=== PATIENT | female | born 1980 | race Caucasian/White ===

== ENCOUNTER 2023-01-02 18:46 | Emergency (ER) | payer OTHER, SELFPAY ==
--- NOTE | ~2023-01-02 | US_ITS ---
EXAMINATION: US ABDOMEN COMPLETE CLINICAL INFORMATION: Right upper quadrant pain. COMPARISON: None available. TECHNIQUE: Real-time imaging of the abdominal viscera. Technical limitation secondary to overlying bowel gas. FINDINGS: PANCREAS: Pancreas not well-visualized secondary to overlying bowel gas. ABDOMINAL AORTA: Aorta not well visualized. INFERIOR VENA CAVA: Visualized portions are normal. LIVER: Normal. The liver is normal in size. The liver contour is normal. Parenchymal echogenicity is normal. No focal hepatic lesion. There is no intrahepatic biliary duct dilatation seen. GALLBLADDER: Normal. The gallbladder is physiologically distended without evidence of stones, sludge, polyps, wall thickening or pericholecystic fluid. COMMON BILE DUCT: Normal in caliber measuring 0.2 cm in diameter. RIGHT KIDNEY: Normal. No hydronephrosis. No renal calculi or focal parenchymal lesions. The kidney measures 9.6 cm in maximum dimension. LEFT KIDNEY: Normal. No hydronephrosis. No renal calculi or focal parenchymal lesions. The kidney measures 9.8 cm in maximum dimension. SPLEEN: Normal. The spleen measures 12.4 cm in maximum dimension. FREE FLUID: None. US/US abdomen complete IMPRESSION: Unremarkable abdominal ultrasound.
[2023-01-02 18:55] VITALS: BP 111/75; PULSE 108; RESP 18; TEMP 36.8; O2SAT 97; BMI 30.8
--- NOTE | 2023-01-02 18:57 | ED_ITS ---
HPI - General Adult General Chief complaint: General Medical Stated complaint: Abdominal pain, no appetite Time Seen by Provider: 01/02/23 19:30 Source: patient Mode of arrival: ambulatory Limitations: no limitations History of Present Illness HPI narrative: 42 yold female with pmh of biliary dyskinesia, eating disroder, anxiety, depression, agrophobia, presents to the ED for chronic abdominal pain ( Right upper quadrant) exacerbation. Patient having abdominal pain ( Right upper quadrant pain) for one year and in October at [facility] on a HiDA scan patient was found to have biliary dyskinesia. patient followed up with Surgeon At [facility] who scheduled patient for open cholecystectomy on January 09, but patient presents to the ED stating pain ( Right upper quadrant pain) is unbearable. Related Data Home Medications Medication Instructions Recorded Confirmed clonazepam 1 mg tablet 1 mg PO DAILY 01/02/23 01/02/23 clonazepam 1 mg tablet 2 mg PO BEDTIME 01/02/23 01/02/23 diazepam 10 mg tablet 10 mg PO BEDTIME 01/02/23 01/02/23 famotidine 20 mg tablet 20 mg PO BID PRN heartburn 01/02/23 01/02/23 lamotrigine 200 mg tablet 200 mg PO DAILY 01/02/23 01/02/23 lamotrigine 25 mg tablet 25 mg PO BEDTIME 01/02/23 01/02/23 lisdexamfetamine 40 mg capsule 40 mg PO QAM 01/02/23 01/02/23 (Vyvanse) ondansetron 4 mg disintegrating 4 mg PO Q8H PRN Nausea 01/02/23 01/02/23 tablet pantoprazole 40 mg tablet,delayed 40 mg PO DAILY 01/02/23 01/02/23 release sucralfate 1 gram tablet 1 g PO QIDACHS 01/02/23 01/02/23 valacyclovir 500 mg tablet 500 mg PO DAILY 01/02/23 01/02/23 vortioxetine 20 mg tablet 20 mg PO QAM 01/02/23 01/02/23 (Trintellix) zolpidem 10 mg tablet 10 mg PO BEDTIME 01/02/23 01/02/23 Previous Rx's Medication Instructions Recorded oxycodone-acetaminophen 5 mg-325 1 tab PO TID PRN pain 3 days #9 10/04/23 mg tablet (Percocet) tabs Allergies Allergy/AdvReac Type Severity Reaction Status Date / Time propofol Allergy Intermediate Itching Verified 01/02/23 18:55 Review of Systems 2 Review of Systems: epgisastric/RUQ abdominal pain Yes all other systems are reviewed and are negative [facility] Social History Social History Smoked in Last 30 Days: No Use of substances other than those prescribed or required for medical reasons: No Advance Directives: No Advance Directives Information Provided: No Patient : No Physical Exam ED Vital Signs: Vital Signs - 24 hr 01/02/23 18:55 Temperature 98.3 F Pulse Rate 108 H Respiratory Rate 18 Blood Pressure 111/75 Pulse Oximetry 97 Oxygen Delivery Method Room Air BMI result Body Mass Index 30.8 Const General: cooperative, healthy appearing, comfortable and no acute distress Orientation/consciousness: oriented to person, oriented to place, oriented to time and patient oriented x3 HENMT Head: Yes normal to inspection, Yes No palpable skull fracture present, Yes normocephalic, Yes atraumatic and No abrasion Eyes General: appearance normal, both eyes and all related structures Neck Neck: Yes normal visual inspection, Yes full ROM, Yes no lymphadenopathy, Yes no meningeal signs, Yes trachea midline, Yes supple, No anterior neck swelling and No tender Chest Chest palpation & inspection: normal inspection of the chest and normal palpation of entire chest wall Resp Effort & Inspection: normal respiratory effort and able to speak in complete sentences Auscultation: clear to auscultation bilaterally Cardio Jugular venous distension: no JVD Heart sounds: S1 normal heart sound present and S2 normal heart sound present GI Inspection: Yes normal to inspection and No abdominal wall ecchymosis Palpation (GI): Soft to palpation, not firm, Tenderness to palpation present (GI) in the RUQ, no guarding and not rigid General: No CVA tenderness and Yes no CVA tenderness Back/Spine/Pelvis Back: no CVA tenderness, No CVA tenderness and No back tenderness Skin General skin exam: no rashes or lesions noted, elasticity normal and turgor normal Neuro General: oriented to person, oriented to place, oriented to time, patient oriented x3, gait normal, tone normal, moves all extremities, Normal light touch and pain sensation, no meningeal signs, no focal motor deficits, CN's II-XI intact bilaterally and normal sensation to monofilament Extrem General: Yes normal to inspection and Yes full ROM Psych Appearance: grossly normal, well kempt and not disheveled Course Course Course Narrative: This is an RME: Additional HPI, ROS, PE not included below will be deferred to primary provider. 42-year-old female presents with no eating x4 days, reports abdominal pain, inability to tolerate p.o., reports associated nausea. Patient has been seen at multiple facilities for the same presentation. He reports last time she was at [facility] she went into cardiac arrest due to this. Plan will speak discharge Medications Administered Discontinued Medications Generic Name Dose Route Start Last Admin Trade Name Corky PRN Reason Stop Dose Admin Diphenhydramine HCl 25 mg 01/02/23 20:07 01/02/23 20:35 Diphenhydramine Hcl 50 Mg/Ml Vial IVPUSH 01/02/23 20:08 25 mg ONCE ONE Administration Sodium Chloride 1,000 mls @ 999 mls/hr 01/02/23 22:36 01/03/23 01:20 Ns IV 01/02/23 23:36 Infused .Q1H1M STA Infusion Sodium Chloride 1,000 mls @ 999 mls/hr 01/02/23 22:36 01/03/23 01:20 Ns IV 01/02/23 23:36 Infused .Q1H1M STA Infusion Morphine Sulfate 4 mg 01/02/23 20:07 01/02/23 20:36 Morphine Sulfate 4 Mg/Ml Cartridge IVPUSH 01/02/23 20:08 4 mg ONCE ONE Administration Protocol Morphine Sulfate 4 mg 01/02/23 22:36 01/02/23 22:53 Morphine Sulfate 4 Mg/Ml Cartridge IVPUSH 01/02/23 22:37 4 mg ONCE ONE Administration Protocol Medical Decision Making Medical Decision Making MDM Narrative: 42-year-old female presents with past medical history anxiety, angrophobia, eating disorder, and recently diagnosed with gallbladder dyskinesia presents to ED for epigastric right upper quadrant pain. Patient's schedule for open cholecystectomy January 09 at [facility] rate. Patient states having abdominal pain since yesterday so she came to the ED. Labs pain med ordered. 1:16am; I reviewed patient's notes and images from [facility] and [facility]. Patient had HIDA scan at [facility] in October which showed biliary dyskinesia. Patient received 8 of morphine. Labs are normal. Repeat ultrasound normal. No need for any CT scan. I reviewed multiple CT scans from [facility] and ultrasound. Also patient has similar presentation today as did at [facility] and [facility] as per notes. Case was discussed with Dr. Dalal of surgery who states presently does not need any surgical intervention and patient could be discharged. Spoke with Hospitalists who states patient does not need to be admitted and can be discharge. Patient was informed the necessity for urine to make sure there is no UTI. patient states she will follow up her PCP to have Urine test to check for UTI. Differential Diagnosis Differential Diagnoses: The differential diagnosis associated with the presentation includes (Cholecystitis, Biliary colic, biliary dyskinesia, pancreatitis) Admission/Observation Consideration of admission/observation: Escalation of care including admission/observation considered Consult Healthcare Provider Management of the patient was discussed with: Access Spec (Dr. Dalal Surgery and Dr. Ness Hospitalist) Lab Data MDM Lab Attestation statement: I reviewed the patient's lab results. 01/02/23 20:12 01/02/23 20:44 Labs: Lab Results 01/02/23 01/02/23 Range/Units 20:12 20:44 WBC 5.8 (4.8-10.8) X10*3/uL RBC 4.77 (4.20-5.50) X10*6/uL Hgb 14.0 (12.0-16.0) g/dl Hct 41.3 (37.0-47.0) % MCV 86.6 (80.0-98.0) fL MCH 29.4 (27.0-33.0) pg MCHC 33.9 (31.0-35.0) g/dl RDW 12.1 (11.0-16.0) % Plt Count 348 (160-400) X10*3/uL MPV 10.1 (9.4-12.3) fL Immature Gran % (Auto) 0.3 (0.0-0.4) % Neut % (Auto) 44.9 L (45-73) % Lymph % (Auto) 45.9 H (20-40) % Lea % (Auto) 7.4 (2-11) % Eos % (Auto) 1.2 (0-4) % Baso % (Auto) 0.3 (0-2) % Lymph # (Auto) 2.7 (1.2-4.9) X10*3/uL Lea # (Auto) 0.4 (0.1-1.2) X10*3/uL Eos # (Auto) 0.1 (0.0-0.4) X10*3/uL Baso # (Auto) 0.0 (0.0-0.2) X10*3/uL Abs Immat Gran (auto) 0.02 (0.00-0.03) X10*3/uL Absolute Neuts (auto) 2.6 (2.0-8.3) x10*3/uL Absolute Nucleated RBC 0.000 (0.0-0.012) X10*3/uL Nucleated RBC % (auto) 0.0 (0.0-0.2) /100WBC Sodium 136 (135-145) mmol/L Potassium 4.2 (3.3-5.1) mmol/L Chloride 104 (96-108) mmol/L Carbon Dioxide 26 (22-29) mmol/L Anion Gap 10 L (12-20) BUN 12 (9-16) mg/dL Creatinine 0.71 (0.5-1.4) mg/dL Estim Creat Clear Calc 103.7 Estimated GFR > 60 Random Glucose 97 (60-115) mg/dL Calcium 9.2 (8.4-10.2) mg/dL Magnesium 2.3 (1.6-2.6) mg/dL Total Bilirubin 0.3 (0.0-1.0) mg/dL AST 14 (5-31) U/L ALT 9 (0-31) U/L Alkaline Phosphatase 96 (39-117) U/L Troponin I High Sens < 2.7 (<3.5-17.0) ng/L Total Protein 7.3 (6.5-8.0) g/dL Albumin 4.0 (3.5-5.0) g/dL Lipase 16 (8-78) U/L Beta HCG, Quant < 2 mIU/mL Ethyl Alcohol < 10 mg/dL Independent Interpretation I performed an independent interpretation of an: Ultrasound Radiology Impression Discussion of test interpretation with radiology: I have reviewed the radiologist's reading. Independent Historian Clinical information obtained from an independent historian. History obtained from or confirmed by: Spouse External Record Review External record reviewed: [facility]patient record ([facility]), Outpatient record ([facility] and [facility]), Prior outpatient radiology ([facility] and [facility]) and Other Prescription Management I considered prescription management with: Pain Medication Discharge Plan Discharge Clinical Impression: Biliary dyskinesia Patient Disposition: Home, Self-Care Instructions: Biliary Dyskinesia (DC) Additional Instructions: Recommend follow-up with your glass calibrator and surgeon at [facility]. Return to the ED immediately for worsening abdominal pain, intractable nausea nausea vomiting, weakness, dizziness, fever, chills, or any other other concerning symptoms. Prescriptions: New oxycodone-acetaminophen [Percocet] 5-325 mg tablet 1 tab PO TID PRN (Reason: pain) 3 Days Qty: 9 0RF Rx Instructions: Partial Fill upon patient request. No Action sucralfate 1 gram tablet 1 g PO QIDACHS clonazepam 1 mg tablet 1 mg PO DAILY valacyclovir 500 mg tablet 500 mg PO DAILY famotidine 20 mg tablet 20 mg PO BID PRN (Reason: heartburn) pantoprazole 40 mg tablet,delayed release (DR/EC) 40 mg PO DAILY diazepam 10 mg tablet 10 mg PO BEDTIME zolpidem 10 mg tablet 10 mg PO BEDTIME ondansetron 4 mg tablet,disintegrating 4 mg PO Q8H PRN (Reason: Nausea) lisdexamfetamine [Vyvanse] 40 mg capsule 40 mg PO QAM Trintellix 20 mg tablet 20 mg PO QAM lamotrigine 200 mg tablet 200 mg PO DAILY clonazepam 1 mg tablet 2 mg PO BEDTIME lamotrigine 25 mg tablet 25 mg PO BEDTIME Interventions: ED Discharge Assessment Last Done: 01/03/23 01:49 Discharge Date/Time: 01/03/23 01:49 Print Language: Ukrainian
--- NOTE | 2023-01-02 19:48 | ECG_ITS ---
Test Reason : WEAKNESS Blood Pressure : / mmHG Vent. Rate : 086 BPM Atrial Rate : 086 BPM P-R Int : 144 ms QRS Dur : 086 ms QT Int : 354 ms P-R-T Axes : 035 044 025 degrees QTc Int : 423 ms Normal sinus rhythm Normal ECG No previous ECGs available Referred By: Kali Salcido Electronically Signed By:ROCIO ESCOTO
[2023-01-02 20:24] LABS: MANUAL DIFF FLAG NO
[2023-01-02 20:29] LABS: Basophils Percent Auto 0.3 % (0-2); Eosinophils Absolute Auto 0.1 X10*3/uL (0.0-0.4); Eosinophils Percent Auto 1.2 % (0-4); Hematocrit 41.3 % (37.0-47.0); Imm Gran Abs Auto 0.02 X10*3/uL (0.00-0.03); Imm Gran Pct Auto 0.3 % (0.0-0.4); Lymphocytes Absolute Auto 2.7 X10*3/uL (1.2-4.9); Lymphocytes Percent Auto 45.9 % (20-40); Mean Corpuscular HGB Conc 33.9 g/dl (31.0-35.0); Mean Corpuscular Hemoglobin 29.4 pg (27.0-33.0); Mean Corpuscular Volume 86.6 fL (80.0-98.0); Mean Platelet Volume 10.1 fL (9.4-12.3); Monocytes Absolute Auto 0.4 X10*3/uL (0.1-1.2); Monocytes Percent Auto 7.4 % (2-11); Neutrophils Absolute Auto 2.6 x10*3/uL (2.0-8.3); Neutrophils Percent Auto 44.9 % (45-73); Platelet Count 348 X10*3/uL (160-400); Red Blood Count 4.77 X10*6/uL (4.20-5.50); Red Cell Distribution Width 12.1 % (11.0-16.0); White Blood Count 5.8 X10*3/uL (4.8-10.8)
[2023-01-02] MEDS: diphenhydrAMINE HCL 50 MG/ML VIAL 25 MG IVPUSH (20:35)
[2023-01-02] MEDS: Morphine Sulfate 4 MG/ML CARTRIDGE IVPUSH ×2 (20:36→22:53)
--- NOTE | 2023-01-02 20:58 | PHA.MEDREC ---
Pharmacy Consult ? Medication Reconciliation Pharmacy has completed the medication reconciliation. Patient reported she takes Clonazepam 1 mg in the Am and 2 mg in the PM as well as diazepam 10 mg in the PM. Patient reported lamotrigine 200 mg in the mornign and 25 mg in the evening. vEon Knox, PharmD
[2023-01-02 21:27] LABS: Alanine Aminotransferase 9 U/L (0-31); Alkaline Phosphatase 96 U/L (39-117); Anion Gap 10 (12-20); Aspartate Amino Transferase 14 U/L (5-31); Bilirubin Total 0.3 mg/dL (0.0-1.0); Blood Urea Nitrogen 12 mg/dL (9-16); Calcium 9.2 mg/dL (8.4-10.2); Carbon Dioxide 26 mmol/L (22-29); Chloride 104 mmol/L (96-108); Creatinine Clr Calc Pharmacy 103.7; Estimated Glomerular Filt Rate > 60; Ethanol < 10 mg/dL; Glucose Random 97 mg/dL (60-115); Lipase 16 U/L (8-78); Magnesium 2.3 mg/dL (1.6-2.6); Potassium 4.2 mmol/L (3.3-5.1); Sodium 136 mmol/L (135-145); Total Protein 7.3 g/dL (6.5-8.0)
[2023-01-02 21:33] LABS: Troponin-I High Sensitivity < 2.7 ng/L (<3.5-17.0)
[2023-01-02] MEDS: 0.9 % Sodium Chloride 1,000 ML 999 ML IV ×2 (22:52→22:53)
[2023-01-02 22:59] LABS: HCG Quantitative < 2 mIU/mL
== END 2023-01-03 01:49 | disposition home or self-care (01) ==
PROVIDERS: Physician Assistant; Emergency Provider Emergency Medicine
DX: K82.8 Other specified diseases of gallbladder (principal); R10.11 Right upper quadrant pain; Z79.899 Other long term (current) drug therapy
CPT/HCPCS: 36415; 76700; 80053; 80307; 83690; 83735; 84484; 84702; 85025; 93005; 96361; 96374; 96375; 96376; 99284; J1200; J2270

== ENCOUNTER 2023-01-28 14:28 | Emergency (ER) | payer OTHER, SELFPAY ==
--- NOTE | ~2023-01-28 | CT_ITS ---
EXAMINATION: CT ABDOMEN AND PELVIS WITH CONTRAST CLINICAL INFORMATION: Hematochezia, lower abdominal pain COMPARISON: Ultrasound 01/02/2023 TECHNIQUE: Multidetector volumetric images were obtained from the superior aspect of the liver through the pubic symphysis following administration 85 mL of Omnipaque 350 intravenous contrast. Sagittal and coronal reformatted images were obtained on the technologist's workstation. Oral contrast: No This CT examination was performed using dose optimization techniques as appropriate, variously including the following: *Automated exposure control *Adjustment of mA and/or kV according to patient size (this includes techniques or standardized protocols for targeted exams where dose is matched to indication/reason for exam; i.e. extremities or head) *Use of iterative reconstruction technique DLP: 624 mGy-cm FINDINGS: LUNG BASES: Mild dependent bibasilar atelectasis. LIVER, GALLBLADDER, AND BILIARY TREE: The liver is normal in size, shape, and attenuation. No focal hepatic lesion or biliary ductal dilatation is present. Patient is status post cholecystectomy, new since prior ultrasound of 01/02/2023. Trace fluid noted in the gallbladder fossa without discrete collection. PANCREAS: Unremarkable. SPLEEN: Unremarkable. ADRENAL GLANDS: Unremarkable. KIDNEYS AND URETERS: Bilateral nephrograms are symmetric. No hydronephrosis or obstructing calculus identified. BLADDER: Unremarkable. GASTROINTESTINAL TRACT: No evidence of bowel obstruction or significant wall thickening. Trace free fluid in the lower abdomen. No free air is seen. ABDOMINAL WALL: Periumbilical stranding suggests sequelae of recent surgery. LYMPH NODES: Normal. VASCULAR: Unremarkable. PELVIC VISCERA: Patient is status post hysterectomy. OSSEOUS STRUCTURES: Unremarkable. CT/CT abdomen pelvis w IV con IMPRESSION: Status post cholecystectomy, new since 01/02/2023. Trace fluid in the gallbladder fossa without discrete collection. Trace free fluid also noted in the lower abdomen. No additional acute findings identified.
--- NOTE | 2023-01-28 14:46 | ED_ITS ---
HPI - General Adult General Chief complaint: Abdominal Pain Stated complaint: vaginal and rectal bleeding Time Seen by Provider: 01/28/23 21:01 Source: patient and family Mode of arrival: ambulatory Limitations: no limitations History of Present Illness HPI narrative: Patient is a 42-year-old female who presents emergency department for evaluation of abdominal pain and associated hematuria and hematochezia. Patient states that she has been having ongoing abdominal pain for the past 3-4 weeks. The pain is localized to the suprapubic region but feels it also to the ?kidneys on both sides? pointing to the mid left and right abdomen that radiates directly into her back. She also reports feeling pain and pressure in to her rectal region. She has had numerous outpatient urinalysis by her account to with her primary care provider and through [facility] that apparently all have appeared to be consistent with urinary tract infection but cultures have not shown evidence of this. She reports recently having a CT scan through [facility] which revealed thickening of the bladder wall, this was obtained prior to a scheduled open cholecystectomy which she did undergo on 01/09/2023 at [facility]. Five days ago upon going to the bathroom she noticed bright red blood in the toilet, she states initially was unclear whether this was rectal bleeding or hematuria. She placed a pad to her undergarments and denies any blood when she is not using the bathroom. She states it is bright red in color and also with clots. She saw her primary care provider 4 days ago, who believed that she had a urinary tract infection yet again, but evidently the urine culture was received in it was negative. She is awaiting a referral to urology for further evaluation. She reports her pain is severe and unbearable, and has been going on for weeks without any identifiable cause. The bleeding is however a new finding Related Data Home Medications Medication Instructions Recorded Confirmed clonazepam 1 mg tablet 1 mg PO TID 01/02/23 01/28/23 clonazepam 1 mg tablet 2 mg PO BEDTIME 01/02/23 01/28/23 diazepam 10 mg tablet 10 mg PO BEDTIME 01/02/23 01/28/23 lamotrigine 200 mg tablet 200 mg PO DAILY 01/02/23 01/28/23 lamotrigine 25 mg tablet 25 mg PO BEDTIME 01/02/23 01/28/23 lisdexamfetamine 40 mg capsule 40 mg PO QAM 01/02/23 01/28/23 (Vyvanse) ondansetron 4 mg disintegrating 4 mg PO Q8H PRN Nausea 01/02/23 01/28/23 tablet valacyclovir 500 mg tablet 500 mg PO DAILY 01/02/23 01/28/23 vortioxetine 20 mg tablet 20 mg PO QAM 01/02/23 01/28/23 (Trintellix) zolpidem 10 mg tablet 10 mg PO BEDTIME 01/02/23 01/28/23 metoclopramide HCl 10 mg tablet 10 mg PO QID 01/28/23 01/28/23 sulfamethoxazole 800 1 tab PO BID 01/28/23 01/28/23 mg-trimethoprim 160 mg tablet Previous Rx's Medication Instructions Recorded oxycodone-acetaminophen 5 mg-325 1 tab PO TID PRN pain 3 days #9 01/03/23 mg tablet (Percocet) tabs dicyclomine 10 mg capsule 10 mg PO QID #20 caps 01/29/23 Allergies Allergy/AdvReac Type Severity Reaction Status Date / Time propofol Allergy Intermediate Itching Verified 01/28/23 14:46 Review of Systems 2 Review of Systems: Yes all other systems are reviewed and are negative PMFSH Past Medical History Attestation statement: The following information was validated with the patient. Source: old records reviewed Social History Social History Smoked in Last 30 Days: No Use of substances other than those prescribed or required for medical reasons: No Advance Directives: No Patient : No Physical Exam ED Vital Signs: Vital Signs - 24 hr 01/28/23 14:47 01/28/23 19:35 01/28/23 22:05 Temperature 98.2 F 98.2 F 98.5 F Pulse Rate 110 H 88 96 Respiratory Rate 19 18 12 Blood Pressure 142/91 H 142/92 H 131/82 Pulse Oximetry 100 98 99 Oxygen Delivery Method Room Air Room Air Room Air 01/29/23 00:19 Temperature Pulse Rate 82 Respiratory Rate 14 Blood Pressure 107/52 L Pulse Oximetry 98 Oxygen Delivery Method Room Air BMI result Body Mass Index 31.2 Appearance: Alert.?Oriented to person, place and time. No acute distress.?Normal affect. Eyes: Pupils equal, round and reactive to light.? ENT: Pharynx normal.?? Neck: Normal inspection.? Neck supple.?? CVS: Heart sounds normal. Normal heart rate and rhythm.? Pulses normal.?? Respiratory: No respiratory distress.? Lung sounds clear to auscultation bilaterally?? Abdomen: Soft with diffuse tenderness upon palpation. No rigidity. No guarding. No rebound tenderness.. Normoactive bowel sounds. No pulsatile mass.? Rectal: Performed with regional company truck driver, ED RN Darya, no fissures, no active bleeding, external hemorrhoids present non thrombosed or bleeding. Upon digital rectal examination maroon-colored stool present Skin: Skin warm and dry.? Normal skin color.? Extremities: No lower extremity edema.? Neuro: Moves all extremities spontaneously. Sensation intact bilaterally. Ambulates with normal steady gait. Course Course Course Narrative: This is an RME: Additional HPI, ROS, PE not included below will be deferred to primary provider. 42 yold female with pmh of biliary dyskinesia, eating disroder, anxiety, depression, agrophobia, presents to the ED for s/p cholecysectomy on January 09 with vaginal and rectal bleeding Dr. Alvarez did the surgery. Complaining of fatigue/mailse. Has been having hair loss, abd pain for years. Not on thinners On november 04 --> cardiac arrest at [facility] Got consent to obtain records from [facility] and Earlene from patient Reevaluation(s) Reevaluation #1: Occult stool is positive, urinalysis without evidence of infection or microscopic hematuria. CT of the abdomen and pelvis is without acute pathology, status post cholecystectomy, trace fluid without discrete fluid collection. No movable mass, bowel wall thickening, obstruction, or sign of infection. Review this finding with patient, advised outpatient follow-up with primary care provider, continued referral to urology given persistent dysuria, in addition provided with contact information for Gastroenterology for follow-up of rectal bleeding and pain, she is hemodynamically stable, no indication for admission at this time. Reviewed this case with ED attending Dr. Easley, also met with the patient at bedside per her request and he agrees with the plan of care. Time: 01:51 Medications Administered Discontinued Medications Generic Name Dose Route Start Last Admin Trade Name Freq PRN Reason Stop Dose Admin Diphenhydramine HCl 25 mg 01/28/23 21:34 01/28/23 21:46 Diphenhydramine Hcl 50 Mg/Ml Vial IVPUSH 01/28/23 21:35 25 mg ONCE ONE Administration Sodium Chloride 1,000 mls @ 999 mls/hr 01/28/23 21:45 01/28/23 22:46 Ns IV 01/28/23 22:45 Infused .Q1H1M MARIAH Infusion Iohexol 85 ml 01/29/23 00:38 01/29/23 00:38 Iohexol 350 Mg/Ml 100 Ml Infus..Btl IV 01/29/23 00:39 85 ml ONCE ONE Administration Morphine Sulfate 4 mg 01/28/23 21:34 01/28/23 21:47 Morphine Sulfate 4 Mg/Ml Cartridge IVPUSH 01/28/23 21:35 4 mg ONCE ONE Administration Protocol Morphine Sulfate 4 mg 01/28/23 22:38 01/28/23 22:44 Morphine Sulfate 4 Mg/Ml Cartridge IVPUSH 01/28/23 22:39 4 mg ONCE ONE Administration Protocol Ondansetron HCl 4 mg 01/28/23 21:34 01/28/23 21:48 Ondansetron Hcl 4 Mg/2 Ml Vial IVPUSH 01/28/23 21:35 4 mg ONCE ONE Administration Medical Decision Making Medical Decision Making MDM Narrative: Patient is a 42-year-old female with past medical history of anxiety, agoraphobia, eating disorder, gallbladder dyskinesia with recent open cholecystectomy presenting to the emergency department for evaluation of abdominal pain, hematochezia, +/- hematuria as per HPI. At the time my examination she appears to be uncomfortable. She is in no respiratory distress. Her abdominal exam is notable for diffuse tenderness even upon light palpation, there is no rigidity or guarding, no rebound tenderness. Digital rectal exam revealing maroon-colored stools, external hemorrhoids are present without thrombosis or active bleeding, no evidence of fissures. Urinalysis is still pending. She reports a history of hysterectomy, denies vaginal bleeding or discharge. I reviewed labs that were obtained prior to my assumption of care, there is no leukocytosis, no anemia. CMP is unremarkable, lipase within normal limits. HCG is negative. Given her reports of pain coupled with maroon-colored stools, plan to obtain CT of the abdomen and pelvis for further evaluation. Patient received no was saline IV fluid, morphine IV for pain, coupled with Benadryl IV as she states that this prevents the severe itching that she gets with this pain medication/sedatives Differential Diagnosis Differential Diagnoses: The differential diagnosis associated with the presentation includes (Colitis, diverticulitis, IBD, IBS, internal hemorrhoid, hemorrhoidal bleeding, fissure, urinary tract infection, pyelonephritis, obstructive calculi) Admission/Observation Consideration of admission/observation: Escalation of care including admission/observation considered (I considered admission for abdominal pain with hematochezia, see course narrative for further detail) Lab Data MDM Lab Attestation statement: I reviewed the patient's lab results. (See narrative above for further detail) 01/28/23 15:23 01/28/23 15:23 Labs: Lab Results 01/28/23 01/28/23 01/28/23 Range/Units 15:23 19:50 22:29 WBC 7.4 (4.8-10.8) X10*3/uL RBC 4.66 (4.20-5.50) X10*6/uL Hgb 13.4 (12.0-16.0) g/dl Hct 40.3 (37.0-47.0) % MCV 86.5 (80.0-98.0) fL MCH 28.8 (27.0-33.0) pg MCHC 33.3 (31.0-35.0) g/dl RDW 12.3 (11.0-16.0) % Plt Count 396 (160-400) X10*3/uL MPV 9.5 (9.4-12.3) fL Immature Gran % (Auto) 0.1 (0.0-0.4) % Neut % (Auto) 37.9 L (45-73) % Lymph % (Auto) 53.0 H (20-40) % [place] % (Auto) 5.6 (2-11) % Eos % (Auto) 2.6 (0-4) % Baso % (Auto) 0.8 (0-2) % Lymph # (Auto) 3.9 (1.2-4.9) X10*3/uL [place] # (Auto) 0.4 (0.1-1.2) X10*3/uL Eos # (Auto) 0.2 (0.0-0.4) X10*3/uL Baso # (Auto) 0.1 (0.0-0.2) X10*3/uL Abs Immat Gran (auto) 0.01 (0.00-0.03) X10*3/uL Absolute Neuts (auto) 2.8 (2.0-8.3) x10*3/uL Absolute Nucleated RBC 0.000 (0.0-0.012) X10*3/uL Nucleated RBC % (auto) 0.0 (0.0-0.2) /100WBC Sodium 136 (135-145) mmol/L Potassium 3.8 (3.3-5.1) mmol/L Chloride 104 (96-108) mmol/L Carbon Dioxide 22 (22-29) mmol/L Anion Gap 14 (12-20) BUN 10 (9-16) mg/dL Creatinine 0.65 (0.5-1.4) mg/dL Estim Creat Clear Calc 113.9 Estimated GFR > 60 Random Glucose 93 (60-115) mg/dL Calcium 9.4 (8.4-10.2) mg/dL Magnesium 2.1 (1.6-2.6) mg/dL Total Bilirubin 0.3 (0.0-1.0) mg/dL AST 22 (5-31) U/L ALT 23 (0-31) U/L Alkaline Phosphatase 90 (39-117) U/L Total Protein 7.1 (6.5-8.0) g/dL Albumin 3.9 (3.5-5.0) g/dL Lipase 15 (8-78) U/L Beta HCG, Quant < 2 mIU/mL Urine Color Urine Appearance Urine pH (5.0-9.0) Ur Specific [place] (1.005-1.025) Urine Protein (Neg-Trace) mg/dL Urine Glucose (UA) (Negative) mg/dL Urine Ketones (Negative) mg/dL Urine Blood (Negative) Urine Nitrite (Negative) Ur Leukocyte Esterase (Negative) Stool Occult Blood POSITIVE (NEGATIVE) COVID-19 (STEVEN) Negative (Negative) COVID-19 Clin Com See Note Blood Type A Positive Antibody Screen NEGATIVE 01/29/23 Range/Units 00:48 WBC (4.8-10.8) X10*3/uL RBC (4.20-5.50) X10*6/uL Hgb (12.0-16.0) g/dl Hct (37.0-47.0) % MCV (80.0-98.0) fL MCH (27.0-33.0) pg MCHC (31.0-35.0) g/dl RDW (11.0-16.0) % Plt Count (160-400) X10*3/uL MPV (9.4-12.3) fL Immature Gran % (Auto) (0.0-0.4) % Neut % (Auto) (45-73) % Lymph % (Auto) (20-40) % [place] % (Auto) (2-11) % Eos % (Auto) (0-4) % Baso % (Auto) (0-2) % Lymph # (Auto) (1.2-4.9) X10*3/uL [place] # (Auto) (0.1-1.2) X10*3/uL Eos # (Auto) (0.0-0.4) X10*3/uL Baso # (Auto) (0.0-0.2) X10*3/uL Abs Immat Gran (auto) (0.00-0.03) X10*3/uL Absolute Neuts (auto) (2.0-8.3) x10*3/uL Absolute Nucleated RBC (0.0-0.012) X10*3/uL Nucleated RBC % (auto) (0.0-0.2) /100WBC Sodium (135-145) mmol/L Potassium (3.3-5.1) mmol/L Chloride (96-108) mmol/L Carbon Dioxide (22-29) mmol/L Anion Gap (12-20) BUN (9-16) mg/dL Creatinine (0.5-1.4) mg/dL Estim Creat Clear Calc Estimated GFR Random Glucose (60-115) mg/dL Calcium (8.4-10.2) mg/dL Magnesium (1.6-2.6) mg/dL Total Bilirubin (0.0-1.0) mg/dL AST (5-31) U/L ALT (0-31) U/L Alkaline Phosphatase (39-117) U/L Total Protein (6.5-8.0) g/dL Albumin (3.5-5.0) g/dL Lipase (8-78) U/L Beta HCG, Quant mIU/mL Urine Color Yellow Urine Appearance Clear Urine pH 5.5 (5.0-9.0) Ur Specific [place] 1.020 (1.005-1.025) Urine Protein Negative (Neg-Trace) mg/dL Urine Glucose (UA) Negative (Negative) mg/dL Urine Ketones Negative (Negative) mg/dL Urine Blood Negative (Negative) Urine Nitrite Negative (Negative) Ur Leukocyte Esterase Negative (Negative) Stool Occult Blood (NEGATIVE) COVID-19 (STEVEN) (Negative) COVID-19 Clin Com Blood Type Antibody Screen Independent Interpretation I performed an independent interpretation of an: CT Scan Radiology Impression Discussion of test interpretation with radiology: I have reviewed the radiologist's reading. Radiologist Impression: CT/CT abdomen pelvis w IV con IMPRESSION: Status post cholecystectomy, new since 01/02/2023. Trace fluid in the gallbladder fossa without discrete collection. Trace free fluid also noted in the lower abdomen. No additional acute findings identified. Independent Historian Clinical information obtained from an independent historian. History obtained from or confirmed by: Spouse (Present at bedside who confirms history) Critical Care Time Critical Care Time Critical Care Time: Yes Total Critical Care Time: 40 Attestation: I personally attest to this critical care time spent taking care of the patient exclusive of all other billable procedures was approximately 40 minutes including initial evaluation of patient, ordering tests, x-ray interpretation, EKG interpretation, medical consultation, documentation, re-evaluation. Discharge Plan Discharge Clinical Impression: Rectal bleeding, Abdominal pain Patient Disposition: Home, Self-Care Instructions: Rectal Bleeding (ED), Abdominal Pain (ED) Additional Instructions: As discussed, your blood work today is normal, you have not lost a significant amount of blood that would require any blood transfusion, there is no sign of anemia. Your urine testing is without evidence of infection or blood in the urine. As discussed, there was noted did to be blood in your stool, a CT scan that we did of your abdomen does not reveal any abnormalities. Please contact your doctor's office 1st thing tomorrow morning to arrange for a follow-up visit. You may speak to them in regards to referral to Urology and Gastroenterology. I have also provided contact information for the Urology and Gastroenterology Department associated with our hospital. You may return back to the emergency department with any new or worsening symptoms or concerns. Prescriptions: New dicyclomine 10 mg capsule 10 mg PO QID Qty: 20 0RF No Action clonazepam 1 mg tablet 1 mg PO TID valacyclovir 500 mg tablet 500 mg PO DAILY diazepam 10 mg tablet 10 mg PO BEDTIME zolpidem 10 mg tablet 10 mg PO BEDTIME ondansetron 4 mg tablet,disintegrating 4 mg PO Q8H PRN (Reason: Nausea) lisdexamfetamine [Vyvanse] 40 mg capsule 40 mg PO QAM Trintellix 20 mg tablet 20 mg PO QAM lamotrigine 200 mg tablet 200 mg PO DAILY Rx Instructions: 200mg in morning, 25mg at night clonazepam 1 mg tablet 2 mg PO BEDTIME lamotrigine 25 mg tablet 25 mg PO BEDTIME Rx Instructions: 200mg in morning, 25mg at night oxycodone-acetaminophen [Percocet] 5-325 mg tablet 1 tab PO TID PRN (Reason: pain) 3 Days Qty: 9 0RF Rx Instructions: Partial Fill upon patient request. sulfamethoxazole-trimethoprim 800-160 mg tablet 1 tab PO BID metoclopramide HCl 10 mg tablet 10 mg PO QID Referrals: Ismael Gary DO [Primary Care Provider] - Paul Stovall MD [Physician] - Elinor Jackson MD [Physician] -
[2023-01-28 14:47] VITALS: BP 142/91; PULSE 110; RESP 19; TEMP 36.8; O2SAT 100; BMI 31.2
[2023-01-28 15:31] LABS: MANUAL DIFF FLAG NO
[2023-01-28 15:32] LABS: Basophils Absolute Auto 0.1 X10*3/uL (0.0-0.2); Basophils Percent Auto 0.8 % (0-2); Eosinophils Absolute Auto 0.2 X10*3/uL (0.0-0.4); Eosinophils Percent Auto 2.6 % (0-4); Hematocrit 40.3 % (37.0-47.0); Hemoglobin 13.4 g/dl (12.0-16.0); Imm Gran Abs Auto 0.01 X10*3/uL (0.00-0.03); Imm Gran Pct Auto 0.1 % (0.0-0.4); Lymphocytes Absolute Auto 3.9 X10*3/uL (1.2-4.9); Mean Corpuscular HGB Conc 33.3 g/dl (31.0-35.0); Mean Corpuscular Hemoglobin 28.8 pg (27.0-33.0); Mean Corpuscular Volume 86.5 fL (80.0-98.0); Mean Platelet Volume 9.5 fL (9.4-12.3); Monocytes Absolute Auto 0.4 X10*3/uL (0.1-1.2); Monocytes Percent Auto 5.6 % (2-11); Neutrophils Absolute Auto 2.8 x10*3/uL (2.0-8.3); Neutrophils Percent Auto 37.9 % (45-73); Platelet Count 396 X10*3/uL (160-400); Red Blood Count 4.66 X10*6/uL (4.20-5.50); Red Cell Distribution Width 12.3 % (11.0-16.0); White Blood Count 7.4 X10*3/uL (4.8-10.8)
[2023-01-28 15:52] LABS: COVID-19 Test Negative (Negative); IDNOW Serial# 08D9AD1C
[2023-01-28 15:53] LABS: Alanine Aminotransferase 23 U/L (0-31); Albumin Level 3.9 g/dL (3.5-5.0); Alkaline Phosphatase 90 U/L (39-117); Anion Gap 14 (12-20); Aspartate Amino Transferase 22 U/L (5-31); Bilirubin Total 0.3 mg/dL (0.0-1.0); Blood Urea Nitrogen 10 mg/dL (9-16); Calcium 9.4 mg/dL (8.4-10.2); Carbon Dioxide 22 mmol/L (22-29); Chloride 104 mmol/L (96-108); Creatinine Clr Calc Pharmacy 113.9; Estimated Glomerular Filt Rate > 60; Glucose Random 93 mg/dL (60-115); Magnesium 2.1 mg/dL (1.6-2.6); Potassium 3.8 mmol/L (3.3-5.1); Sodium 136 mmol/L (135-145); Total Protein 7.1 g/dL (6.5-8.0)
[2023-01-28 19:35] VITALS: BP 142/92; PULSE 88; RESP 18; TEMP 36.8; O2SAT 98
--- NOTE | 2023-01-28 20:10 | PC.NURSE ---
Pt presents to ED with vaginal and rectal bleeding. Pt has multiple chronic illnesses and is being followed by multiple doctors at [facility] and [facility]. Pt had cholecystectomy on 01/09 and since then has had increasing abdominal pain. Pt noted blood from the vaginal and rectal areas when she uses the bathroom. Pt states that the blood has been coagulating, and that it is not a constant flow like a period. Pt has had a hysterectomy and stated she has not bled since 2014. Pt has been having 10/10 abdominal pain. Pt is very tearful unable to complete sentences due to pain. Pt stated that in the past, morphine and benadryl have been given and it helped the pain somewhat. Pt stated she gets itchy with morphine, so benadryl was added on. Pt labs have been drawn, I placed a 20g IV in the left forearm. Pt is resting in bed at this time with significant other at the bedside. Requested pain medication from and PA, both of which stated that there are other patients to be seen first.
[2023-01-28] MEDS: 0.9 % Sodium Chloride 1,000 ML 999 ML IV (21:46)
[2023-01-28] MEDS: diphenhydrAMINE HCL 50 MG/ML VIAL 25 MG IVPUSH (21:46)
[2023-01-28] MEDS: Morphine Sulfate 4 MG/ML CARTRIDGE IVPUSH ×2 (21:47→22:44)
[2023-01-28] MEDS: ondansetron HCL 4 MG/2 ML VIAL IVPUSH (21:48)
[2023-01-28 22:05] VITALS: BP 131/82; PULSE 96; RESP 12; TEMP 36.9; O2SAT 99
[2023-01-28 22:35] LABS: OBS Int Ctl Valid YES; OBS1 POSITIVE (NEGATIVE)
[2023-01-28 23:21] LABS: Lipase 15 U/L (8-78)
[2023-01-28 23:44] LABS: HCG Quantitative < 2 mIU/mL
[2023-01-29 00:19] VITALS: BP 107/52; PULSE 82; RESP 14; O2SAT 98
[2023-01-29] MEDS: iohexoL 350 MG/ML 100 ML INFUS..BTL 85 ML IV (00:38)
[2023-01-29 00:54] LABS: Appearance Urine Clear; Color Urine Yellow; Glucose Urine UA Negative (Negative); Leukocyte Esterase Urine Negative (Negative); Nitrite Urine Negative (Negative); PH 5.5 (5.0-9.0); Urine Blood Negative (Negative); Urine Ketones Negative (Negative); Urine Protein Negative (Neg-Trace)
[2023-01-29 02:06] VITALS: BP 101/54; PULSE 74; RESP 16; O2SAT 96
== END 2023-01-29 02:20 | disposition home or self-care (01) ==
PROVIDERS: Nurse Practitioner Family; Physician Assistant; Emergency Provider Emergency Medicine; PCP Student in an Organized Health Care Education/Training Program
DX: K62.5 Hemorrhage of anus and rectum (principal); R31.9 Hematuria, unspecified; R10.2 Pelvic and perineal pain; Z11.52 Encounter for screening for COVID-19; Z20.822 Contact with and (suspected) exposure to COVID-19; Z79.899 Other long term (current) drug therapy
CPT/HCPCS: 74177; 80053; 81003; 82272; 83690; 83735; 84702; 85025; 86850; 86900; 86901; 87635; 96361; 96374; 96375; 96376; 99284; 99285; J1200; J2270; J2405; Q9967

== ENCOUNTER 2023-01-30 10:06 | Outpatient (REF) | payer OTHER, SELFPAY ==
[2023-01-30 11:51] LABS: Folate 5.9 ng/mL (> or = 4.0); Vitamin B12 467 pg/mL (200-900)
[2023-02-02 10:33] LABS: IgA 213 mg/dL (47-310); IgG 1271 mg/dL (600-1640); IgM 116 mg/dL (50-300)
== END 2023-01-30 10:07 | disposition home or self-care (01) ==
LOC: HO.LAB 10:06
PROVIDERS: Visit Provider Psychiatry & Neurology Neurology
DX: G62.9 Polyneuropathy, unspecified (principal)
CPT/HCPCS: 36415; 82607; 82746; 82784; 86334

== ENCOUNTER 2023-04-30 13:36 | Outpatient (REF) | payer OTHER, SELFPAY ==
--- NOTE | ~2023-04-30 | MR_ITS ---
EXAMINATION: MR BRAIN WITHOUT AND WITH CONTRAST CLINICAL INFORMATION: Paraparesis COMPARISON: None available. TECHNIQUE: Multiplanar, multisequence imaging of the brain was performed before and after the intravenous administration of 9 mL of Gadavist. FINDINGS: There is no acute infarction, mass, hemorrhage, or extra-axial collection. No abnormal or unexpected intracranial enhancement is seen. The ventricles, sulci, and basilar cisterns are normal in size and configuration. Small scattered foci of T2/FLAIR hyperintensity are seen within the white matter which are nonspecific. The cerebellar tonsils are normally positioned. The flow voids of the major intracranial arteries appear intact. The bones and extracranial soft tissues are within normal limits. MR/MR head/brain wo/w con IMPRESSION: No mass lesion, acute infarction, or abnormal intracranial enhancement. Nonspecific foci of T2/FLAIR hyperintensity are seen within the white matter.
[2023-04-30] MEDS: gadobutroL 10 ML VIAL IVPUSH (15:37)
== END 2023-04-30 13:37 | disposition home or self-care (01) ==
LOC: HO.MRI 13:36
PROVIDERS: PCP Student in an Organized Health Care Education/Training Program; Visit Provider Psychiatry & Neurology Neurology
DX: G82.20 Paraplegia, unspecified (principal)
CPT/HCPCS: 70553; A9585

== ENCOUNTER 2023-05-21 11:20 | Outpatient (REF) | payer OTHER, SELFPAY ==
[2023-05-21 13:43] LABS: Erythrocyte Sedimentation Rate 8 MM/HR (0-20)
[2023-05-22 06:28] LABS: Lyme Abs Screen <0.90 index
[2023-05-22 17:58] LABS: Anti DNA DS Antibody <1 IU/mL
[2023-05-30 13:34] LABS: Anti Nuclear Antibody Screen POSITIVE (NEGATIVE)
== END 2023-05-21 11:21 | disposition home or self-care (01) ==
LOC: HO.LAB 11:20
PROVIDERS: Visit Provider Psychiatry & Neurology Neurology
DX: G37.9 Demyelinating disease of central nervous system, unspecified (principal)
CPT/HCPCS: 36415; 85652; 86038; 86039; 86225; 86617; 86618

== ENCOUNTER 2023-06-13 09:29 | Day surgery (SDC) | payer OTHER, SELFPAY ==
--- NOTE | ~2023-06-13 | FL_ITS ---
FLUOROSCOPIC GUIDED LUMBAR PUNCTURE INDICATION: Concern for demyelinating disease Risks and benefits and possible complications were discussed with the patient and the consent form was signed. Patient was placed prone on the fluoroscopy table. The back was prepped and draped in routine sterile fashion. Betadine was used as a skin antiseptic. Utilizing fluoroscopic guidance, the L3-4 interlaminar space was accessed with a 5 cm 22 gauge quinkie spinal needle and clear CSF fluid obtained. 8 cc of fluid was sent for analysis. The needle was removed without immediate complications. Total fluoroscopy time: 0.2 min FL/FL guided lumbar puncture LP IMPRESSION: Successful fluoroscopic guided lumbar puncture This procedure was performed by Rolan Maddox PA-C and supervised by Dr. Walden.
[2023-06-13 09:57] LABS: UPreg QC Valid YES; Urine Pregnancy NEGATIVE (NEGATIVE)
[2023-06-13 10:17] VITALS: BMI 31.5
[2023-06-13 10:29] LABS: MANUAL DIFF FLAG NO
[2023-06-13 10:35] LABS: Basophils Percent Auto 0.4 % (0-2); Eosinophils Absolute Auto 0.1 X10*3/uL (0.0-0.4); Eosinophils Percent Auto 2.2 % (0-4); Hemoglobin 14.1 g/dl (12.0-16.0); Imm Gran Abs Auto 0.02 X10*3/uL (0.00-0.03); Imm Gran Pct Auto 0.4 % (0.0-0.4); Lymphocytes Absolute Auto 2.4 X10*3/uL (1.2-4.9); Lymphocytes Percent Auto 44.3 % (20-40); Mean Corpuscular HGB Conc 33.6 g/dl (31.0-35.0); Mean Corpuscular Hemoglobin 27.9 pg (27.0-33.0); Mean Corpuscular Volume 83.2 fL (80.0-98.0); Mean Platelet Volume 9.7 fL (9.4-12.3); Monocytes Absolute Auto 0.4 X10*3/uL (0.1-1.2); Neutrophils Absolute Auto 2.5 x10*3/uL (2.0-8.3); Neutrophils Percent Auto 44.7 % (45-73); Platelet Count 325 X10*3/uL (160-400); Red Blood Count 5.05 X10*6/uL (4.20-5.50); Red Cell Distribution Width 12.6 % (11.0-16.0); White Blood Count 5.5 X10*3/uL (4.8-10.8)
[2023-06-13 10:41] LABS: Prothrombin Time 12.6 SEC (11.1-13.3)
[2023-06-13 10:44] LABS: Partial Thromboplastin Time 32.1 SEC (26.0-36.8)
[2023-06-13 11:50] VITALS: BP 111/69; PULSE 81; RESP 14; TEMP 36.6; O2SAT 98
[2023-06-13 12:05] VITALS: BP 116/71; PULSE 72; RESP 16; O2SAT 96
[2023-06-13 12:20] VITALS: BP 119/74; PULSE 74; RESP 14; O2SAT 98
[2023-06-13 12:23] LABS: CSF Appearance Clear, Colorless; CSF Tube # 1
[2023-06-13 12:28] LABS: Glucose CSF 57 mg/dL; Total Protein CSF 24.5 mg/dL (15-45)
[2023-06-13 12:50] LABS: Oligoclonal Serum Yes
[2023-06-13 12:59] VITALS: BP 109/72; PULSE 80; RESP 17; TEMP 36.8
[2023-06-13 14:30] LABS: Appearance CSF CLEAR; Color CSF COLORLESS; Lymphocytes CSF 100 %
[2023-06-13 14:31] LABS: CSF Tube # 4; Red Blood Cell CSF 1 MM*3; White Blood Cell CSF 1 MM*3
[2023-06-18 12:28] LABS: Oligoclonal Banding Absent (Absent)
[2023-06-19 11:43] LABS: Albumin 2.7 g/dL (3.6-5.1); Albumin, CSF 10.3 mg/dL (8.0-42.0); IgG 786 mg/dL (600-1640); IgG Synthesis Rate -2.2 mg/24 h (-9.9-3.3); IgG, CSF 1.5 mg/dL (0.8-7.7)
== END 2023-06-13 13:02 | disposition home or self-care (01) ==
PROVIDERS: Physician Assistant Surgical; PCP Student in an Organized Health Care Education/Training Program; Visit Provider Psychiatry & Neurology Neurology
PROC: 009U3ZZ Drainage of Spinal Canal, Percutaneous Approach (ICD-10-PCS; CPT 62270; principal; 2023-06-13 11:00)
DX: G37.9 Demyelinating disease of central nervous system, unspecified (principal); F43.10 Post-traumatic stress disorder, unspecified; G82.20 Paraplegia, unspecified; R29.6 Repeated falls; F32.9 Major depressive disorder, single episode, unspecified; F41.9 Anxiety disorder, unspecified; F45.22 Body dysmorphic disorder; R45.851 Suicidal ideations
CPT/HCPCS: 36415; 62328; 81025; 82042; 82945; 83916; 84157; 85025; 85610; 85730; 87015; 87070; 87205; 89051

== ENCOUNTER → 2023-06-13 11:47 | Outpatient (BNV) | payer OTHER, SELFPAY | PROVIDERS: PCP Student in an Organized Health Care Education/Training Program; Visit Provider Physician Assistant Surgical | DX: G37.9 Demyelinating disease of central nervous system, unspecified (principal) | CPT/HCPCS: 62328 ==

== ENCOUNTER 2023-06-15 10:40 | Emergency (ER) | payer OTHER, SELFPAY ==
--- NOTE | ~2023-06-15 | FL_ITS ---
EXAMINATION: XR FLUOROSCOPY WITH IMAGES CLINICAL INFORMATION: Blood patch. COMPARISON: Lumbar puncture dated 06/13/2023. TECHNIQUE: Fluoroscopy Supervised By: Dr. Vijay Alcaraz. Fluoroscopy Time: 21.9 units. Cumulative Dose: 13.150 mGy. DAP: 3.5991 Gycm2. Images: 1. FINDINGS: The submitted lateral image of the lower lumbar spine shows an injection needle and injected epidural contrast. FL/FL guidance in OR IMPRESSION: Intraoperative fluoroscopic guidance is provided during lumbar blood patch procedure. Please see the patient's Operative Report for full procedural details.
[2023-06-15 10:42] VITALS: BP 128/77; PULSE 91; RESP 18; TEMP 37; O2SAT 97; BMI 35.4
--- NOTE | 2023-06-15 12:01 | ED.HA ---
HPI - Headache General Chief Complaint: Headache Stated Complaint: headache, had spinal tap 2 days ago Time Seen by Provider: 06/15/23 11:29 History of Present Illness HPI Narrative: 42 years old status post spinal tap 2 days ago done by Radiology presents today with having headache worse getting up. The pain is 10/10 on sitting. 5/10 she is lying. No fever no chills. Light seems to make it worse. No headache prior. Patient from home. No focal weakness. Related Data Home Medications Medication Instructions Recorded Confirmed clonazepam 1 mg tablet 1 mg PO TID 01/02/23 01/28/23 clonazepam 1 mg tablet 2 mg PO BEDTIME 01/02/23 01/28/23 diazepam 10 mg tablet 10 mg PO BEDTIME 01/02/23 01/28/23 lamotrigine 200 mg tablet 200 mg PO DAILY 01/02/23 01/28/23 lamotrigine 25 mg tablet 25 mg PO BEDTIME 01/02/23 01/28/23 lisdexamfetamine 40 mg capsule 40 mg PO QAM 01/02/23 01/28/23 (Vyvanse) ondansetron 4 mg disintegrating 4 mg PO Q8H PRN Nausea 01/02/23 01/28/23 tablet valacyclovir 500 mg tablet 500 mg PO DAILY 01/02/23 01/28/23 vortioxetine 20 mg tablet 20 mg PO QAM 01/02/23 01/28/23 (Trintellix) zolpidem 10 mg tablet 10 mg PO BEDTIME 01/02/23 01/28/23 metoclopramide HCl 10 mg tablet 10 mg PO QID 01/28/23 01/28/23 sulfamethoxazole 800 1 tab PO BID 01/28/23 01/28/23 mg-trimethoprim 160 mg tablet Previous Rx's Medication Instructions Recorded oxycodone-acetaminophen 5 mg-325 1 tab PO TID PRN pain 3 days #9 01/03/23 mg tablet (Percocet) tabs dicyclomine 10 mg capsule 10 mg PO QID #20 caps 01/29/23 Allergies Allergy/AdvReac Type Severity Reaction Status Date / Time propofol Allergy Intermediate Itching Verified 06/15/23 10:46 Review of Systems Review of Systems: Positive headache Yes all other systems are reviewed and are negative [facility] Past Medical History Medical History History of suicidal ideation Anxiety Agoraphobia MDD (major depressive disorder) PTSD (post-traumatic stress disorder) Social History Social History Advance Directives: No Physical Exam Vital Signs: Vital Signs: Last Vital Signs Temp 98.1 F 06/15/23 14:42 Pulse 64 06/15/23 14:42 Resp 18 06/15/23 14:42 BP 136/76 06/15/23 14:42 Pulse Ox 98 06/15/23 14:42 O2 Del Method Room Air 06/15/23 14:42 BMI result Body Mass Index 35.4 Appearance: Alert. Oriented X3. No acute distress. Eyes: Pupils equal, round and reactive to light. ENT: Pharynx normal. Neck: Normal inspection. Neck supple. No lymph nodes noted. No crepitus CVS: Normal heart rate and rhythm. Pulses normal. Normal S1 and S2 Respiratory: No respiratory distress. Breath sounds normal. No Wheezing. No rales Abdomen: Soft and nontender. No rigidity. No distention. good BS x4 Skin: Skin warm and dry. Normal skin color. Normal skin turgor. Extremities: No lower extremity edema. Neurovascular intact to all extremities. No Lacerations. No Rash Neuro: Oriented X 3. No motor deficit. No sensory deficit. Moving all extermities. No slurred speech Medications Administered Discontinued Medications Generic Name Dose Route Start Last Admin Trade Name Freq PRN Reason Stop Dose Admin Hydromorphone HCl 0.5 mg 06/15/23 12:00 06/15/23 12:14 Hydromorphone Hcl 0.5 Mg/0.5 Ml Syringe IVPUSH 06/15/23 12:01 0.5 mg ONCE ONE Administration Protocol Sodium Chloride 1,000 mls @ 999 mls/hr 06/15/23 12:00 06/15/23 12:14 Ns IV 06/15/23 13:00 999 mls/hr .Q1H1M MARIAH Administration Medical Decision Making Medical Decision Making [facility] Narrative: Noon- Patient had LP done now have headache that is worse with sitting up improved with lying down there is no fever no chills is no focal weakness neurologically intact. IV fluids ordered. Baseline labs ordered. Will give patient some pain medication. Case discussed with anesthesia on-call. Will come down and evaluate patient for possible blood patch. Currently in stable condition. Patient's case discussed with pain management, took patient to the operating room for blood patch. Patient in no distress. IV fluids started. In stable condition. Differential Diagnosis Differential Diagnoses: The differential diagnosis associated with the presentation includes Spinal headache, tension headache, migraine headache Admission/Observation Consideration of admission/observation: Escalation of care including admission/observation considered Consult Healthcare Provider Management of the patient was discussed with: Griddle Cook (Anesthesia for blood patch) Independent Historian Clinical information obtained from an independent historian. History obtained from or confirmed by: Spouse Prescription Management I considered prescription management with: Pain Medication Discharge Plan Discharge Clinical Impression: Post-dural puncture headache Patient Disposition: Home, Self-Care Additional Instructions: No shower for 48 hours no bathtub , sponge bath only , continue bedrest for the next 48 hours had below the level of the chest preferably on lateral decubitus side. Continue caffeinated beverages, coffee, chocolate, Coca-Cola. Avoid straining down and avoid constipation. If constipated take OTC laxatives such as Metamucil or Dulcolax. Avoid heavy lifting more than 10 lb by both hands or 5 lb x 1 hand. Slowly expand activities 48 hours from now. Prescriptions: No Action clonazepam 1 mg tablet 1 mg PO TID valacyclovir 500 mg tablet 500 mg PO DAILY diazepam 10 mg tablet 10 mg PO BEDTIME zolpidem 10 mg tablet 10 mg PO BEDTIME ondansetron 4 mg tablet,disintegrating 4 mg PO Q8H PRN (Reason: Nausea) lisdexamfetamine [Vyvanse] 40 mg capsule 40 mg PO QAM Trintellix 20 mg tablet 20 mg PO QAM lamotrigine 200 mg tablet 200 mg PO DAILY Rx Instructions: 200mg in morning, 25mg at night clonazepam 1 mg tablet 2 mg PO BEDTIME lamotrigine 25 mg tablet 25 mg PO BEDTIME Rx Instructions: 200mg in morning, 25mg at night oxycodone-acetaminophen [Percocet] 5-325 mg tablet 1 tab PO TID PRN (Reason: pain) 3 Days Qty: 9 0RF Rx Instructions: Partial Fill upon patient request. sulfamethoxazole-trimethoprim 800-160 mg tablet 1 tab PO BID metoclopramide HCl 10 mg tablet 10 mg PO QID dicyclomine 10 mg capsule 10 mg PO QID Qty: 20 0RF Referrals: Ismael Gary DO [Primary Care Provider] -
[2023-06-15] MEDS: 0.9 % Sodium Chloride 1,000 ML 999 ML IV (12:14)
[2023-06-15] MEDS: HYDROmorphone HCl 0.5 MG/0.5 ML SYRINGE IVPUSH (12:14)
--- NOTE | 2023-06-15 12:14 | PC.NURSE ---
pt is experiencing light sensitivity at this time.
--- NOTE | 2023-06-15 12:15 | PC.NURSE ---
ANESTHESIOLOGIST AT BEDSIDE PT/FAMILY AWARE OF PLAN OF CARE.
--- NOTE | 2023-06-15 12:53 | HO.PAINCONS ---
Review of Systems Review of Systems: Positive headache Yes all other systems are reviewed and are negative [facility] Past Medical History Medical History History of suicidal ideation Anxiety Agoraphobia MDD (major depressive disorder) PTSD (post-traumatic stress disorder) Social History Social History Advance Directives: No Physical Exam Vital Signs: Vital Signs: Last Vital Signs Temp 98.6 F 06/15/23 10:42 Pulse 91 06/15/23 10:42 Resp 18 06/15/23 10:42 BP 128/77 06/15/23 10:42 Pulse Ox 97 06/15/23 10:42 O2 Del Method Room Air 06/15/23 10:42 BMI result Body Mass Index 35.4 Const: General: cooperative, alert, awake and acute distress Nutritional Appearance: average body habitus Orientation/consciousness: patient oriented x3 HEENT: Other: Tongue is at midline. Head: Yes normal to inspection Eyes: Other: Pupils are equal in size slightly dilated but responsive to light and accommodation. Neck: Other: Neck Neck: Yes full ROM, Yes no meningeal signs, Yes trachea midline, Yes supple and No positive Kernig's sign Resp: Effort & Inspection: normal respiratory effort, able to speak in complete sentences, normal respiratory pattern, no audible wheezes and no cough Cardio: Jugular venous distension: no JVD Neuro: General: patient oriented x3, no meningeal signs, no focal motor deficits and other (Position is in bed with complaining on intractable headaches) Cognition (Neuro): normal cognition Assessment and Plan (1) Post-dural puncture headache: Status: Acute Plan 1. IV hydration is recommended. 2. Fioricet 2 pills p.o. is recommended start 3. Proceed to the operating room for epidural blood patch.
--- NOTE | 2023-06-15 13:15 | PC.NURSE ---
PT TO THE OR FOR BLOOD PATCH 2NDARY TO LP VIA STRETCHER.
--- NOTE | 2023-06-15 13:26 | MHC.SHP ---
Pre-Procedural Eval Section A - 24 Hr Update-Section A only Date of Service: 06/15/23 The patient is an INPATIENT: No Changes since office visit: Yes Patient answered all questions The patient has been examined within 24 hours of the surgical procedure. The History & Physical has been completed within 30 days and I have reviewed it.: No Section B - Complete if H&P > 30 days Chief Complaint: headache, had spinal tap 2 days ago Details of Present Illness: Post dural puncture headache Relevant Family History (Specify if Yes): No Relevant Social History: None Present Medications: None Medical History: No relevant PMH History of Previous Operations: Relevant previous surgery/procedure and date(s) (LP 2 days ago) Allergies: Allergies Allergy/AdvReac Type Severity Reaction Status Date / Time propofol Allergy Intermediate Itching Verified 06/15/23 10:46 Review of Systems Sugical H&P ROS: Negative: Constitution, Cardiovascular, Respiratory, Psychiatric, Hem-Onc, Allergic/Immunologic, Gastrointestinal, Genitourinary, Musculoskeletal, Integumentary, Endocrine and Eyes/Ears/Nose/Throat and Yes, Specify: Neurological (Positional frontal headache) Exam Surgical H&P Exam: Normal: HEENT, Normal: Heart, Normal: Lungs, Normal: Extremities, Normal: Abdomen, Normal: Skin and Normal: Neurological Plan Diagnosis/Plan: Unchanged I have reviewed the history and physical and performed a pertinent physical examination on my patient. No changes have occurred unless specified. Time Spent With Patient Time: Total time managing care of this patient today ____ minutes.
--- NOTE | 2023-06-15 14:38 | PM.OP ---
Brief Operative Note Date of Service: 06/15/23 Pre-op diagnosis: Post dural puncture headache Post-op diagnosis: same Procedure: Epidural blood patch Surgeon: Vijay Alcaraz MD Anesthesia: local Was an Nut Steamer used for this Procedure?: No Estimated blood loss (mL): 3 Condition: stable Disposition: PACU
[2023-06-15 14:42] VITALS: BP 136/76; PULSE 64; RESP 18; TEMP 36.7; O2SAT 98
--- NOTE | 2023-06-15 14:44 | P.OP_ITS ---
Operative Note Operative Note Date of Service: 06/15/23 Narrative: Epidural blood patch. Informed consent was thoroughly explained to the patient: Risks of bleeding, infection, peripheral nerve damage, spinal cord damage were explained to the patient. Alternatives were explained to the patient as bedrest caffeinated beverages Fioricet. Patient agreed to go for the procedure. The patient was brought to the operating room and was positioned prone on the operating table. The patient received 2 g of cefazolin intravenously 15 minutes before the injection of the autologous blood into the epidural space. The lower back was prepped with ChloraPrep and draped with sterile utility towels. C-arm was brought over the operating field and sq picture of the L5 and L4 vertebra were demonstrated on the screen. Right upper lamina of the L5 vertebra close to the spinous process was chosen as the initial target of needle insertion. Projection of the point of interest to the skin was infiltrated with lidocaine 2%. After that 20 gauge 10 cm Touhy needle was inserted through the skin and advanced to were the epidural space on anterior posterior and lateral views. Loss of resistance to air technique was used to locate the epidural space. When epidural space was located injection of the contrast was performed demonstrating epidurogram. Dr. Rogers attempted to obtain blood for epidural blood patch sterilely from the left antecubital and then from the right cephalic vein on the risks with no success. Finally Dr. Rogers managed to obtain 15 cc of autologous blood from the left cephalic vein on the wrist. At this moment I verify position of the epidural needle with another injection of the contrast and demonstration of the epidurogram and injected all 15 cc into the epidural space. The patient tolerated procedure well she was taken outside of the operat ing room to recovery room where she recovered uneventfully. She reported immediate relief of her pain. Discharge instructions were given .
== END 2023-06-15 15:25 | disposition home or self-care (01) ==
PROVIDERS: Anesthesiology; Emergency Provider Emergency Medicine Emergency Medical Services; PCP Student in an Organized Health Care Education/Training Program
PROC: 3E0R3GC Introduction of Other Therapeutic Substance into Spinal Canal, Percutaneous Approach (ICD-10-PCS; CPT 62273; principal; 2023-06-15 15:30)
DX: G97.1 Other reaction to spinal and lumbar puncture (principal); Y84.4 Aspiration of fluid as the cause of abnormal reaction of the patient, or of later complication, without mention of misadventure at the time of the procedure; Y92.9 Unspecified place or not applicable
CPT/HCPCS: 62273; 96374; 99283; 99285; J0690; J1170; Q9967

== ENCOUNTER → 2023-06-15 11:28 | Outpatient (BNV) | payer OTHER, SELFPAY | PROVIDERS: Emergency Provider Emergency Medicine Emergency Medical Services; PCP Student in an Organized Health Care Education/Training Program; Visit Provider Anesthesiology | DX: G97.1 Other reaction to spinal and lumbar puncture (principal) | CPT/HCPCS: 62273; 99203 ==

== ENCOUNTER 2023-06-20 09:46 | Outpatient (REF) | payer OTHER, SELFPAY ==
--- NOTE | ~2023-06-20 | MR_ITS ---
EXAMINATION: MRI CERVICAL SPINE WITH AND WITHOUT CONTRAST MRI THORACIC SPINE WITH AND WITHOUT CONTRAST MRI LUMBAR SPINE WITH AND WITHOUT CONTRAST CLINICAL INFORMATION: Back pain status post lumbar puncture. Question epidural abscess L2-L5. COMPARISON: Fluoroscopy-guided lumbar puncture 06/13/2023. TECHNIQUE: Multiplanar and multisequence MR imaging of the cervical, thoracic, and lumbar spine before and after administration of 9 mL Gadavist. FINDINGS: No acute bone marrow signal or suspicious enhancement. No acute compression fracture. The spinal cord is normal in caliber. No abnormal cord signal or enhancement. The conus medullaris terminates at L1. No drainable intracanalicular fluid collection. Specifically, no evidence of epidural abscess. Linear STIR hyperintensity in the right interlaminar space at L3-L4. Additional focus of edema and enhancement along the left L4 lamina. These findings likely represent postprocedural changes. Otherwise, the paraspinal soft tissues are unremarkable. The visualized intrathoracic, intra-abdominal, intrapelvic structures are grossly within normal limits. No drainable soft tissue collection identified. CERVICAL SPINE: The visualized posterior fossa is unremarkable. Partially empty sella. Straightening of the normal cervical lordosis which may be positional. Normal alignment. The vertebral body heights are preserved. Multilevel disc desiccation without significant disc height loss. C2-C3: Normal disc contour. No significant spinal canal or neural foraminal narrowing. C3-C4: Mild endplate spurring. No significant spinal canal or neural foraminal narrowing. C4-C5: Mild endplate spurring. No significant spinal canal or neural foraminal narrowing. C5-C6: Disc osteophyte complex and bilateral uncovertebral hypertrophy. No significant spinal canal or neural foraminal narrowing. C6-C7: Disc osteophyte complex and bilateral uncovertebral hypertrophy. No significant spinal canal or neural foraminal narrowing. C7-T1: No significant spinal canal or neural foraminal narrowing. THORACIC SPINE: Normal alignment. Probable intraosseous hemangioma at T10. The vertebral body heights are preserved. Multilevel disc desiccation without significant disc height loss. Schmorl's node at T11 inferior endplate. No significant disc herniation, spinal canal stenosis, or neural foraminal narrowing. LUMBAR SPINE: Minimal retrolisthesis at L5-S1. The vertebral body heights are preserved. Mild disc desiccation at L5-S1 without significant disc height loss. T12-L1: No significant spinal canal or neural foraminal narrowing. L1-L2: Tiny left paracentral disc protrusion. No significant spinal canal or neural foraminal narrowing. L2-L3: No significant spinal canal or neural foraminal narrowing. L3-L4: No significant spinal canal or neural foraminal narrowing. L4-L5: Bilateral facet arthrosis. No significant spinal canal or neural foraminal narrowing. L5-S1: Right subarticular/foraminal disc protrusion and bilateral facet arthrosis. 5 mm nonenhancing T2 hyperintensity abutting the left facet joint within the paraspinal soft tissues may represent a small synovial cyst. No significant spinal canal or neural foraminal narrowing. MR/MR thoracic spine wo/w con IMPRESSION: -No evidence of epidural abscess, discitis/osteomyelitis, or other acute abnormality of the cervical, thoracic, or lumbar spine. -Mild degenerative changes of the cervical and lumbar spine as described above without significant canal or neural foraminal narrowing. -Probable 5 mm extracanalicular synovial cyst abutting the left L5-S1 facet joint.
[2023-06-20] MEDS: gadobutroL 10 ML VIAL IVPUSH (11:42)
[2023-06-20 12:41] LABS: MANUAL DIFF FLAG NO
[2023-06-20 13:06] LABS: Basophils Percent Auto 0.5 % (0-2); Eosinophils Absolute Auto 0.2 X10*3/uL (0.0-0.4); Eosinophils Percent Auto 3.1 % (0-4); Hematocrit 42.8 % (37.0-47.0); Hemoglobin 14.3 g/dl (12.0-16.0); Lymphocytes Absolute Auto 2.8 X10*3/uL (1.2-4.9); Lymphocytes Percent Auto 45.9 % (20-40); Mean Corpuscular HGB Conc 33.4 g/dl (31.0-35.0); Mean Corpuscular Hemoglobin 28.1 pg (27.0-33.0); Mean Corpuscular Volume 84.3 fL (80.0-98.0); Mean Platelet Volume 9.8 fL (9.4-12.3); Monocytes Absolute Auto 0.4 X10*3/uL (0.1-1.2); Monocytes Percent Auto 7.2 % (2-11); Neutrophils Absolute Auto 2.6 x10*3/uL (2.0-8.3); Neutrophils Percent Auto 43.3 % (45-73); Platelet Count 371 X10*3/uL (160-400); Red Blood Count 5.08 X10*6/uL (4.20-5.50); Red Cell Distribution Width 12.8 % (11.0-16.0); White Blood Count 6.1 X10*3/uL (4.8-10.8)
== END 2023-06-20 09:47 | disposition home or self-care (01) ==
LOC: HO.MRI 09:46
PROVIDERS: Anesthesiology; PCP Student in an Organized Health Care Education/Training Program; Visit Provider Psychiatry & Neurology Neurology
DX: G97.1 Other reaction to spinal and lumbar puncture (principal); G37.9 Demyelinating disease of central nervous system, unspecified; G06.1 Intraspinal abscess and granuloma
CPT/HCPCS: 36415; 72156; 72157; 85025; 99212; A9585

== ENCOUNTER 2023-06-20 11:52 | Outpatient (AMB) | payer OTHER, SELFPAY ==
[2023-06-20 11:56] VITALS: BP 116/78; PULSE 83; RESP 20; O2SAT 96; BMI 35.4
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
== END 2023-06-20 12:23 | disposition home or self-care (01) ==
LOC: HO.PMC 11:52
PROVIDERS: PCP Student in an Organized Health Care Education/Training Program; Visit Provider Anesthesiology
DX: G97.1 Other reaction to spinal and lumbar puncture (principal); G06.1 Intraspinal abscess and granuloma; K52.9 Noninfective gastroenteritis and colitis, unspecified; M54.81 Occipital neuralgia; N30.10 Interstitial cystitis (chronic) without hematuria
CPT/HCPCS: 99213

== ENCOUNTER 2023-06-22 11:48 | Outpatient (REF) | payer OTHER, SELFPAY ==
--- NOTE | ~2023-06-22 | MR_ITS ---
EXAMINATION: MRI CERVICAL SPINE WITH AND WITHOUT CONTRAST MRI THORACIC SPINE WITH AND WITHOUT CONTRAST MRI LUMBAR SPINE WITH AND WITHOUT CONTRAST CLINICAL INFORMATION: Back pain status post lumbar puncture. Question epidural abscess L2-L5. COMPARISON: Fluoroscopy-guided lumbar puncture 06/13/2023. TECHNIQUE: Multiplanar and multisequence MR imaging of the cervical, thoracic, and lumbar spine before and after administration of 9 mL Gadavist. FINDINGS: No acute bone marrow signal or suspicious enhancement. No acute compression fracture. The spinal cord is normal in caliber. No abnormal cord signal or enhancement. The conus medullaris terminates at L1. No drainable intracanalicular fluid collection. Specifically, no evidence of epidural abscess. Linear STIR hyperintensity in the right interlaminar space at L3-L4. Additional focus of edema and enhancement along the left L4 lamina. These findings likely represent postprocedural changes. Otherwise, the paraspinal soft tissues are unremarkable. The visualized intrathoracic, intra-abdominal, intrapelvic structures are grossly within normal limits. No drainable soft tissue collection identified. CERVICAL SPINE: The visualized posterior fossa is unremarkable. Partially empty sella. Straightening of the normal cervical lordosis which may be positional. Normal alignment. The vertebral body heights are preserved. Multilevel disc desiccation without significant disc height loss. C2-C3: Normal disc contour. No significant spinal canal or neural foraminal narrowing. C3-C4: Mild endplate spurring. No significant spinal canal or neural foraminal narrowing. C4-C5: Mild endplate spurring. No significant spinal canal or neural foraminal narrowing. C5-C6: Disc osteophyte complex and bilateral uncovertebral hypertrophy. No significant spinal canal or neural foraminal narrowing. C6-C7: Disc osteophyte complex and bilateral uncovertebral hypertrophy. No significant spinal canal or neural foraminal narrowing. C7-T1: No significant spinal canal or neural foraminal narrowing. THORACIC SPINE: Normal alignment. Probable intraosseous hemangioma at T10. The vertebral body heights are preserved. Multilevel disc desiccation without significant disc height loss. Schmorl's node at T11 inferior endplate. No significant disc herniation, spinal canal stenosis, or neural foraminal narrowing. LUMBAR SPINE: Minimal retrolisthesis at L5-S1. The vertebral body heights are preserved. Mild disc desiccation at L5-S1 without significant disc height loss. T12-L1: No significant spinal canal or neural foraminal narrowing. L1-L2: Tiny left paracentral disc protrusion. No significant spinal canal or neural foraminal narrowing. L2-L3: No significant spinal canal or neural foraminal narrowing. L3-L4: No significant spinal canal or neural foraminal narrowing. L4-L5: Bilateral facet arthrosis. No significant spinal canal or neural foraminal narrowing. L5-S1: Right subarticular/foraminal disc protrusion and bilateral facet arthrosis. 5 mm nonenhancing T2 hyperintensity abutting the left facet joint within the paraspinal soft tissues may represent a small synovial cyst. No significant spinal canal or neural foraminal narrowing. MR/MR lumbar spine wo/w con IMPRESSION: -No evidence of epidural abscess, discitis/osteomyelitis, or other acute abnormality of the cervical, thoracic, or lumbar spine. -Mild degenerative changes of the cervical and lumbar spine as described above without significant canal or neural foraminal narrowing. -Probable 5 mm extracanalicular synovial cyst abutting the left L5-S1 facet joint.
[2023-06-22] MEDS: gadobutroL 10 ML VIAL IVPUSH (13:05)
== END 2023-06-22 11:49 | disposition home or self-care (01) ==
LOC: HO.MRI 11:48
PROVIDERS: PCP Student in an Organized Health Care Education/Training Program; Visit Provider Anesthesiology
DX: G06.1 Intraspinal abscess and granuloma (principal); G97.1 Other reaction to spinal and lumbar puncture
CPT/HCPCS: 72158; A9585

== ENCOUNTER 2023-10-14 15:26 | Emergency (ER) | payer OTHER, SELFPAY ==
[2023-10-14 15:52] VITALS: BP 135/62; PULSE 108; RESP 20; TEMP 36.8; O2SAT 99; BMI 38.1
--- NOTE | 2023-10-14 16:01 | ED.GENADULT ---
HPI - General Adult General Chief complaint: Extremity Problem Stated complaint: bilateral lwr leg pain/left is worse Time Seen by Provider: 10/14/23 16:31 Source: patient Mode of arrival: ambulatory Limitations: no limitations History of Present Illness ED Provider: juan VILLA narrative: Patient has chronic pain syndrome for interstitial cystitis on tramadol and ketamine intranasal spray which she ran out 1 week ago was at [facility] 3 days ago for constipation comes here as having pain in the left leg since was not [facility] patient ran out of her ketamine for last 1 week pain is left thigh muscles no swelling no rash no back pain patient had detailed workup multiple MRIs of the back ,had MRI of the brain on 04/25 which was negative Related Data Home Medications ?Medication ?Instructions ?Recorded ?Confirmed clonazepam 1 mg tablet 1 mg PO TID 01/02/23 01/28/23 clonazepam 1 mg tablet 2 mg PO BEDTIME 01/02/23 01/28/23 diazepam 10 mg tablet 10 mg PO BEDTIME 01/02/23 01/28/23 lamotrigine 200 mg tablet 200 mg PO DAILY 01/02/23 01/28/23 lamotrigine 25 mg tablet 25 mg PO BEDTIME 01/02/23 01/28/23 lisdexamfetamine 40 mg capsule 40 mg PO QAM 01/02/23 01/28/23 (Vyvanse) ondansetron 4 mg disintegrating 4 mg PO Q8H PRN Nausea 01/02/23 01/28/23 tablet valacyclovir 500 mg tablet 500 mg PO DAILY 01/02/23 01/28/23 vortioxetine 20 mg tablet 20 mg PO QAM 01/02/23 01/28/23 (Trintellix) zolpidem 10 mg tablet 10 mg PO BEDTIME 01/02/23 01/28/23 metoclopramide HCl 10 mg tablet 10 mg PO QID 01/28/23 01/28/23 sulfamethoxazole 800 1 tab PO BID 01/28/23 01/28/23 mg-trimethoprim 160 mg tablet Previous Rx's ?Medication ?Instructions ?Recorded oxycodone-acetaminophen 5 mg-325 1 tab PO TID PRN pain 3 days #9 01/03/23 mg tablet (Percocet) tabs dicyclomine 10 mg capsule 10 mg PO QID #20 caps 01/29/23 Allergies Allergy/AdvReac Type Severity Reaction Status Date / Time propofol Allergy Intermediate Itching Verified 10/14/23 16:00 Review of Systems Review of Systems: Yes all other systems are reviewed and are negative [facility] Past Medical History Medical History History of suicidal ideation Anxiety Agoraphobia MDD (major depressive disorder) PTSD (post-traumatic stress disorder) Social History Social History Advance Directives: No Advance Directives Information Provided: No Physical Exam ED Vital Signs: Vital Signs - 24 hr 10/14/23 15:52 10/14/23 19:01 Temperature 98.2 F 98.7 F Pulse Rate 108 H 101 H Respiratory Rate 20 20 Blood Pressure 135/62 130/98 H Pulse Oximetry 99 100 Oxygen Delivery Method Room Air Room Air BMI result Body Mass Index 38.1 Appearance: Alert. Oriented X3. No acute distress. Obese Eyes: No pallor or icterus ENT: Pharynx normal. Oral Mucosa moist Neck: Normal inspection. Neck supple. CVS: Normal heart rate and rhythm. Pulses normal. Respiratory: No respiratory distress. Equal air entry bilateral, no wheezing/rales/rhonchi Abdomen: Soft and nontender. Bowel sounds are present, no mass palpable, no CVA tenderness Skin: Skin warm and dry. Normal skin color. Normal skin turgor. backk: No focal spinal tenderness Extremities: No lower extremity edema. No calf tenderness diffuse muscular tenderness left thigh deep tendon reflexes are normal patient able to stand up bearing weight on individual leg without significant weakness Neuro: Oriented X 3. No motor deficit. No sensory deficit.No cerebellar signs , cranial nerves II-XII intact Course Course Course Narrative: RME: DOne by MARYELLEN Tillman, 42-year-old female presents to ED for bilateral leg pain without any trauma. Patient states since last year having informed of multiple sclerosis that caused her to become less mobile and weak and knows wheelchair to get around. Patient denies any worsening weakness of lower extremity just pain. Physical exam negative for leg swelling, calf pain, hotness, ecchymosis coldness, or deformities. Motor neurovascular exam intact. Labs including CPK ordered. Medications Administered Discontinued Medications Generic Name Dose Route Start Last Admin Trade Name Freq PRN Reason Stop Dose Admin Oxycodone HCl 10 mg 10/14/23 17:07 10/14/23 17:26 Oxycodone Hcl Immed Release 5 Mg Tablet PO 10/14/23 17:08 10 mg ONCE ONE Administration Medical Decision Making Medical Decision Making [facility] Narrative: Patient with chronic pain syndrome with nonspecific muscular pain workup is negative electrolytes CPK negative patient has ran out of her ketamine patient advised to follow up with her urologist patient's D-dimer also negative Differential Diagnosis Differential Diagnoses: The differential diagnosis associated with the presentation includes Myalgia/ chronic pain syndrome/DVT Lab Data [facility] Lab Attestation statement: I reviewed the patient's lab results. 10/14/23 16:08 10/14/23 16:08 Labs: Lab Results 10/14/23 Range/Units 16:08 WBC 7.5 (4.8-10.8) X10*3/uL RBC 4.78 (4.20-5.50) X10*6/uL Hgb 13.9 (12.0-16.0) g/dl Hct 40.5 (37.0-47.0) % MCV 84.7 (80.0-98.0) fL MCH 29.1 (27.0-33.0) pg MCHC 34.3 (31.0-35.0) g/dl RDW 12.6 (11.0-16.0) % Plt Count 395 (160-400) X10*3/uL MPV 9.6 (9.4-12.3) fL Immature Gran % (Auto) 0.4 (0.0-0.4) % Neut % (Auto) 52.5 (45-73) % Lymph % (Auto) 37.6 (20-40) % Warren % (Auto) 7.7 (2-11) % Eos % (Auto) 1.3 (0-4) % Baso % (Auto) 0.5 (0-2) % Lymph # (Auto) 2.8 (1.2-4.9) X10*3/uL Warren # (Auto) 0.6 (0.1-1.2) X10*3/uL Eos # (Auto) 0.1 (0.0-0.4) X10*3/uL Baso # (Auto) 0.0 (0.0-0.2) X10*3/uL Abs Immat Gran (auto) 0.03 (0.00-0.03) X10*3/uL Absolute Neuts (auto) 3.9 (2.0-8.3) x10*3/uL Absolute Nucleated RBC 0.000 (0.0-0.012) X10*3/uL Nucleated RBC % (auto) 0.0 (0.0-0.2) /100WBC PT 11.4 (11.1-13.3) SEC INR 0.9 (0.9-1.1) APTT 29.7 (26.0-36.8) SEC D-Dimer High Sensitivty 154 NG/ML Sodium 136 (135-145) mmol/L Potassium 3.8 (3.3-5.1) mmol/L Chloride 108 (96-108) mmol/L Carbon Dioxide 19 L (22-29) mmol/L Anion Gap 13 (12-20) BUN 10 (9-16) mg/dL Creatinine 0.66 (0.5-1.4) mg/dL Estim Creat Clear Calc 124.7 Estimated GFR > 60 Random Glucose 147 H (60-115) mg/dL Calcium 9.4 (8.4-10.2) mg/dL Total Bilirubin 0.1 (0.0-1.0) mg/dL AST 23 (5-31) U/L ALT 53 H (0-31) U/L Alkaline Phosphatase 157 H (39-117) U/L Total Creatine Kinase 43 (26-140) U/L Total Protein 7.6 (6.5-8.0) g/dL Albumin 4.2 (3.5-5.0) g/dL Discharge Plan Discharge Clinical Impression: Chronic pain Patient Disposition: Home, Self-Care Instructions: Pain Management (ED), Chronic Pain (ED) Additional Instructions: Take your pain medication for your chronic pain Your blood workup is normal follow up with pain clinic Prescriptions: No Action clonazepam 1 mg tablet 1 mg PO TID valacyclovir 500 mg tablet 500 mg PO DAILY diazepam 10 mg tablet 10 mg PO BEDTIME zolpidem 10 mg tablet 10 mg PO BEDTIME ondansetron 4 mg tablet,disintegrating 4 mg PO Q8H PRN (Reason: Nausea) lisdexamfetamine [Vyvanse] 40 mg capsule 40 mg PO QAM Trintellix 20 mg tablet 20 mg PO QAM lamotrigine 200 mg tablet 200 mg PO DAILY Rx Instructions: 200mg in morning, 25mg at night clonazepam 1 mg tablet 2 mg PO BEDTIME lamotrigine 25 mg tablet 25 mg PO BEDTIME Rx Instructions: 200mg in morning, 25mg at night oxycodone-acetaminophen [Percocet] 5-325 mg tablet 1 tab PO TID PRN (Reason: pain) 3 Days Qty: 9 0RF Rx Instructions: Partial Fill upon patient request. sulfamethoxazole-trimethoprim 800-160 mg tablet 1 tab PO BID metoclopramide HCl 10 mg tablet 10 mg PO QID dicyclomine 10 mg capsule 10 mg PO QID Qty: 20 0RF Referrals: Harvinder Elizabeth MD, PhD [Physician] - 2 weeks Interventions: ED Discharge Assessment Last Done: 10/14/23 19:01 Discharge Date/Time: 10/14/23 19:03 Print Language: Armenian
[2023-10-14 16:16] LABS: MANUAL DIFF FLAG NO
[2023-10-14 16:23] LABS: Basophils Percent Auto 0.5 % (0-2); Eosinophils Absolute Auto 0.1 X10*3/uL (0.0-0.4); Eosinophils Percent Auto 1.3 % (0-4); Hematocrit 40.5 % (37.0-47.0); Hemoglobin 13.9 g/dl (12.0-16.0); Imm Gran Abs Auto 0.03 X10*3/uL (0.00-0.03); Imm Gran Pct Auto 0.4 % (0.0-0.4); Lymphocytes Absolute Auto 2.8 X10*3/uL (1.2-4.9); Lymphocytes Percent Auto 37.6 % (20-40); Mean Corpuscular HGB Conc 34.3 g/dl (31.0-35.0); Mean Corpuscular Hemoglobin 29.1 pg (27.0-33.0); Mean Corpuscular Volume 84.7 fL (80.0-98.0); Mean Platelet Volume 9.6 fL (9.4-12.3); Monocytes Absolute Auto 0.6 X10*3/uL (0.1-1.2); Monocytes Percent Auto 7.7 % (2-11); Neutrophils Absolute Auto 3.9 x10*3/uL (2.0-8.3); Neutrophils Percent Auto 52.5 % (45-73); Platelet Count 395 X10*3/uL (160-400); Red Blood Count 4.78 X10*6/uL (4.20-5.50); Red Cell Distribution Width 12.6 % (11.0-16.0); White Blood Count 7.5 X10*3/uL (4.8-10.8)
[2023-10-14 16:29] LABS: INTERNATIONAL NORM RATIO 0.9 (0.9-1.1); Prothrombin Time 11.4 SEC (11.1-13.3)
[2023-10-14 16:31] LABS: Partial Thromboplastin Time 29.7 SEC (26.0-36.8)
[2023-10-14 16:37] LABS: Alanine Aminotransferase 53 U/L (0-31); Albumin Level 4.2 g/dL (3.5-5.0); Alkaline Phosphatase 157 U/L (39-117); Anion Gap 13 (12-20); Aspartate Amino Transferase 23 U/L (5-31); Bilirubin Total 0.1 mg/dL (0.0-1.0); Blood Urea Nitrogen 10 mg/dL (9-16); Calcium 9.4 mg/dL (8.4-10.2); Carbon Dioxide 19 mmol/L (22-29); Chloride 108 mmol/L (96-108); Creatinine Clr Calc Pharmacy 124.7; Estimated Glomerular Filt Rate > 60; Glucose Random 147 mg/dL (60-115); Potassium 3.8 mmol/L (3.3-5.1); Sodium 136 mmol/L (135-145); Total Protein 7.6 g/dL (6.5-8.0)
[2023-10-14] MEDS: oxyCODONE HCl Immed Release 5 MG TABLET 10 MG PO (17:26)
--- NOTE | 2023-10-14 18:01 | PC.NURSE ---
this RN went into patient room to d/c her and give medications per MAR. Pt is very upset about care received, emotional support provided by this patient, concerns escalated to charge/house sup who is escalating concerns further. At this time patient is not being d/c until further plan in place.
[2023-10-14 18:27] LABS: D Dimer High Sensitivity 154 NG/ML
--- NOTE | 2023-10-14 18:57 | PC.NURSE ---
clinical sup at bedside, concerns escalated to multiple people. d-dimer ordered and was negative. At this time dispo plan is to d/c home with follow up. Pt in agreement with d/c at this time
[2023-10-14 19:01] VITALS: BP 130/98; PULSE 101; RESP 20; TEMP 37.1; O2SAT 100
== END 2023-10-14 19:03 | disposition home or self-care (01) ==
PROVIDERS: Physician Assistant; Emergency Provider Internal Medicine; PCP Student in an Organized Health Care Education/Training Program
DX: G89.29 Other chronic pain (principal); M79.604 Pain in right leg; M79.605 Pain in left leg; Z79.899 Other long term (current) drug therapy
CPT/HCPCS: 36415; 80053; 82550; 85025; 85379; 85610; 85730; 99283

== ENCOUNTER 2024-01-08 14:26 | Outpatient (REF) | payer OTHER, SELFPAY ==
[2024-01-08 17:25] LABS: Lipase 19 U/L (8-78)
[2024-01-08 17:59] LABS: Folate 7.7 ng/mL (> or = 4.0); Vitamin B12 358 pg/mL (200-900)
[2024-01-11 20:57] LABS: Transglutaminase Ab IgG <1.0 U/mL; Transglutaminase IgA <1.0 U/mL
[2024-01-15 12:52] LABS: Vitamin D 25-OH, D2 7 ng/mL; Vitamin D 25-OH, D3 8 ng/mL; Vitamin D 25-OH, Total 15 ng/mL (30-100)
== END 2024-01-08 14:27 | disposition home or self-care (01) ==
LOC: HO.LAB 14:26
PROVIDERS: PCP Student in an Organized Health Care Education/Training Program; Visit Provider Nurse Practitioner Family
DX: E55.9 Vitamin D deficiency, unspecified (principal); R10.9 Unspecified abdominal pain; K52.9 Noninfective gastroenteritis and colitis, unspecified; K21.9 Gastro-esophageal reflux disease without esophagitis; R14.0 Abdominal distension (gaseous); K59.01 Slow transit constipation; K59.04 Chronic idiopathic constipation
CPT/HCPCS: 36415; 82306; 82607; 82746; 83690; 86364; 99202

== ENCOUNTER 2024-01-08 14:26 | Outpatient (AMB) | payer OTHER, SELFPAY ==
[2024-01-08 14:36] VITALS: BP 136/88; PULSE 86; O2SAT 95; BMI 41.8
--- NOTE | 2024-01-08 14:36 | A.OFFVIS_ITS ---
Vital Signs 01/08/24 14:36 Height 5 ft 3 in Weight 236 lb BMI 41.8 BP 136/88 Blood Pressure Location Rt brachial Position Sitting Pulse 86 Pulse Source Pulse Oximeter Pulse Oximetry (%) 95 Oxygen Delivery Method Room Air Intake Visit Reasons: Colitis Intake Note: Paula presents in office today for a scheduled initial assessment. CC; Pt referred by pain management. Pt has hx of prior colo via [facility]. Hx of gastric ulcers reported. Dx'd with IBS per prev provider. Pt reports that pain management referred her over here due to malpractice by [facility]. Pt had TWO procedures within 48 hours of each other due to poor prep per [facility]. Pt also reporting hx of contractility issues with her colon. Pt states that they are essentially here to re-establish care due to the malpra ctice from [facility]. Help Desk Engineer Required: No Allergies propofol Allergy (Intermediate, Verified 01/08/24 14:51) Itching HPI HPI Colitis: Details: 43-year-old female with past medical history of interstitial cystitis, occipital neuralgia of right side, inflammatory bowel disease, PTSD, anxiety, depression is here today for initial consultation. Patient is coming to this department for 2nd opinion. Patient had colonoscopy done at [facility], however due to poor prep patient had to have colonoscopy repeated in 2 days. Patient was diagnosed with GERD last year on 07/20/2022 when all her symptoms began. Patient was unable to tolerate any food anything she ate she fell epigastric pain unable to tolerate any food. Calories decreased in her intake as she was unable to eat. Every time she ate pain in the right upper quadrant. Multiple visit to ER where they did lab work and CT scans. Patient was very dehydrated at one of the visits to ER where she coded . After that patient had been admitted and work out to see why her symptoms are so severe. Patient had ultrasound of the abdomen as well as endoscopy that did not show any abnormalities. Eventually patient had HIDA scan and was found to have significant biliary dyskinesia. She continued to unable to tolerate any food. Surgery was performed in December of 2022 at [facility]. Patient continues to have abdominal bloating and occasional abdominal pain or discomfort. Patient denies any melena, hematochezia, unintentional weight loss or ribbon like stools. Patient states that she is here for 2nd opinion sent by her [facility] Medical History Gastric ulcer History of suicidal ideation Anxiety Agoraphobia MDD (major depressive disorder) PTSD (post-traumatic stress disorder) Surgical History H/O: hysterectomy Hx of cholecystectomy (~12/2022) Family History Father Prostate cancer Maternal Uncle Colon cancer Maternal Grandmother Breast cancer Review of Systems Const Denies weight gain and Denies weight loss ENT Reports no additional complaints, Denies dysphagia and Denies odynophagia Card Reports no additional complaints Resp Reports no additional complaints GI Denies abdominal pain, Denies belching, Denies melena, Denies bloating, Denies change in bowel habits, Denies dysphagia, Denies excessive flatus, Denies dy spepsia, Denies heartburn, Denies diarrhea, Denies loose stools, Denies nausea, Denies odynophagia and Denies vomiting Reports no additional complaints Musc Reports no additional complaints Neuro Reports no additional complaints Psych Reports no additional complaints Endo Reports no additional complaints Physical Exam Vital Signs: Last Vital Signs Pulse 86 01/08/24 14:36 BP 136/88 01/08/24 14:36 Pulse Ox 95 01/08/24 14:36 Oxygen Delivery Method Room Air 01/08/24 14:36 BMI result Body Mass Index 41.8 Const General: healthy appearing and no acute distress Nutritional Appearance: obese Orientation/consciousness: patient oriented x3 Resp Effort & Inspection: normal respiratory effort, able to speak in complete sentences, no tracheal deviation and symmetric chest movement Auscultation: clear to auscultation bilaterally Cardio Rate: regular rate GI Inspection: Yes normal to inspection and No distended Palpation (GI): Soft to palpation, not firm, nontender and No hepatosplenomegaly present Auscultation: normal bowel sounds General: Yes no CVA tenderness Back/Spine/Pelvis Back: no CVA tenderness Skin General skin exam: elasticity normal, turgor normal and dry skin Neuro General: patient oriented x3 Psych Appearance: grossly normal Mental Status: mental status grossly normal Assessment & Plan Assessment & Plan (1) Inflammatory bowel disease: Code(s): K52.9 - Noninfective gastroenteritis and colitis, unspecified Category: Medical (2) Postprandial epigastric pain: Code(s): R10.13 - Epigastric pain (3) GERD (gastroesophageal reflux disease): Code(s): K21.9 - Gastro-esophageal reflux disease without esophagitis Qualifiers: Esophagitis presence: esophagitis presence not specified Qualified Code(s): K21.9 - Gastro-esophageal reflux disease without esophagitis (4) Constipation: Code(s): K59.00 - Constipation, unspecified Qualifiers: Constipation type: slow transit constipation Qualified Code(s): K59.01 - Slow transit constipation (5) Postprandial abdominal bloating: Code(s): R14.0 - Abdominal distension (gaseous) Plan Patient will start taking Linzess daily may take Dulcolax on as-needed basis if no bowel movement in 1-2 days. Increase fluid intake and activity to promote better bowel motility. Will check vitamin-D, B12 lipase and transglutaminase. Follow-up in 2-3 months, sooner on as needed basis. Patient is agreeable to this plan and verbalizes understanding of instructions. She was given the opportunity to ask questions and all questions answered. Thank you for allowing me to participate in her care Orders: Orders Vitamin B12 and Folate 01/08/24 R19.7 - Diarrhea, unspecified Vitamin D 25-OH (D2 and D3) 01/08/24 E55.9 - Vitamin D deficiency, unspecified Transglutaminase IgA 01/08/24 R10.9 - Unspecified abdominal pain Lipase 01/08/24 R10.9 - Unspecified abdominal pain Transglutaminase Ab IgG 01/08/24 R10.9 - Unspecified abdominal pain Referrals Allergy & Immunology Referral K52.9 - Noninfective gastroenteritis and colitis, unspecified Medications: New esomeprazole magnesium (Nexium) 40 mg PO DAILY 30 caps 5RF K21.9 - Gastro- esophageal reflux disease without esophagitis bisacodyl (Dulcolax (bisacodyl)) 10 mg (2 x 5 mg) PO BEDTIME 180 tabs 4RF linaclotide (Linzess) 290 mcg PO QAM 30 caps 4RF K59.00 - Constipation, unspecified magnesium oxide 400 mg PO DAILY 90 caps 2RF K59.04 - Chronic idiopathic constipation Coding Level of Care Code New Pt Level 4 (66800) Diagnoses Inflammatory bowel disease K52.9 Postprandial epigastric pain R10.13 Gastroesophageal reflux disease, unspecified whether esophagitis present K21.9 Esophagitis presence: esophagitis presence not specified Slow transit constipation K59.01 Constipation type: slow transit constipation Postprandial abdominal bloating R14.0 Time Spent (min) 45 Comment 30 minutes spent with patient and additional 15 minutes spent reviewing her records
== END 2024-01-08 15:46 | disposition home or self-care (01) ==
PROVIDERS: PCP Student in an Organized Health Care Education/Training Program; Visit Provider Nurse Practitioner Family
DX: K52.9 Noninfective gastroenteritis and colitis, unspecified (principal); R10.13 Epigastric pain; K21.9 Gastro-esophageal reflux disease without esophagitis; K59.01 Slow transit constipation; R14.0 Abdominal distension (gaseous)
CPT/HCPCS: 99204

== ENCOUNTER 2024-03-31 15:26 | Outpatient (AMB) | payer OTHER, SELFPAY ==
[2024-03-31 15:28] VITALS: BP 128/84; PULSE 86; O2SAT 94; BMI 42.2
--- NOTE | 2024-03-31 15:28 | MHC.OFFVIS ---
Vital Signs 03/31/24 15:28 Height 5 ft 3 in Weight 238 lb BMI 42.2 BP 128/84 Blood Pressure Location Rt brachial Position Sitting Pulse 86 Pulse Source Pulse Oximeter Pulse Oximetry (%) 94 Oxygen Delivery Method Room Air Intake Visit Reasons: 2 month follow up Intake Note: ESTABLISHED PATIENT Reason; scheduled in office 2 mos FUV. Changes/concerns? Labs Done. Linzess stopped due to frequent loose stools. Pt still taking nexium and pepcid. Pharmacy verified? [facility] Allergies propofol Allergy (Intermediate, Verified 03/31/24 15:29) Itching HPI HPI 2 month follow up: Details: LAST VISIT: Inflammatory bowel disease Postprandial epigastric pain GERD (gastroesophageal reflux disease) Constipation Postprandial abdominal bloating Plan Patient will start taking Linzess daily may take Dulcolax on as-needed basis if no bowel movement in 1-2 days. Increase fluid intake and activity to promote better bowel motility. Will check vitamin-D, B12 lipase and transglutaminase. Follow-up in 2-3 months, sooner on as needed basis. Patient is agreeable to this plan and verbalizes understanding of instructions. She was given the opportunity to ask questions and all questions answered. ? Thank you for allowing me to participate in her care Orders Orders Vitamin B12 and Folate 01/08/24 R19.7 Vitamin D 25-OH (D2 and D3) 01/08/24 E55.9 Transglutaminase IgA 01/08/24 R10.9 Lipase 01/08/24 R10.9 Transglutaminase Ab IgG 01/08/24 R10.9 Referrals Allergy & Immunology Referral K52.9 Medications New esomeprazole magnesium (Nexium) 40 mg PO DAILY 30 caps 5RF K21.9 bisacodyl (Dulcolax (bisacodyl)) 10 mg (2 x 5 mg) PO BEDTIME 180 tabs 4RF linaclotide (Linzess) 290 mcg PO QAM 30 caps 4RF K59.00 magnesium oxide 400 mg PO DAILY 90 caps 2RF K59.04 TODAY'S VISIT Patient is here today for follow-up and to discuss lab results. Patient had low vitamin-D level as she stays indoors for the most part. Patient reports that she started low FODMAP diet and following it it the best as she can. Patient reports that she is moving her bowels better now. She is no longer taking Linzess or Dulcolax as she is having frequent bowel movement. For the most part patient states that whenever she eats she has a bowel movement almost immediately. Patient reports that she feels like the food that she eats on digested is found in her loose stool. She is taking Nexium and magnesium at bedtime. Patient reports that her abdominal cramping and abdominal bloating lessened, however she is worry about passing abnormal stools that are very watery full of on digested food. Patient reports that Nexium has been helping with acid reflux, however she continues to have occasional abdominal bloating depending on what she eats. Patient is trying to figure out which food is best for her, however if she follows low FODMAP diet she is doing okay. She feels like because she is no longer eating food that was high in fiber she does not have a natural fiber that is in the food that she used to eat. [facility] Medical History Gastric ulcer History of suicidal ideation Anxiety Agoraphobia MDD (major depressive disorder) PTSD (post-traumatic stress disorder) Surgical History H/O: hysterectomy Hx of cholecystectomy (~12/2022) Family History Father Prostate cancer Maternal Uncle Colon cancer Maternal Grandmother Breast cancer Review of Systems Const Denies weight gain and Denies weight loss ENT Reports no additional complaints, Denies dysphagia and Denies odynophagia Card Reports no additional complaints Resp Reports no additional complaints GI Denies abdominal pain, Denies belching, Denies melena, Reports bloating, Denies change in bowel habits, Denies dysphagia, Denies excessive flatus, Denies dyspepsia, Reports heartburn, Denies diarrhea, Reports loose stools, Denies nausea, Denies odynophagia and Denies vomiting Reports no additional complaints Musc Reports no additional complaints Neuro Reports no additional complaints Psych Reports no additional complaints Endo Reports no additional complaints Physical Exam Vital Signs: Last Vital Signs Pulse 86 03/31/24 15:28 BP 128/84 03/31/24 15:28 Pulse Ox 94 03/31/24 15:28 Oxygen Delivery Method Room Air 03/31/24 15:28 BMI result Body Mass Index 42.2 Const Other: Patient is sitting in the wheelchair General: healthy appearing and no acute distress Nutritional Appearance: obese Orientation/consciousness: patient oriented x3 Resp Effort & Inspection: normal respiratory effort, able to speak in complete sentences, no tracheal deviation and symmetric chest movement Auscultation: clear to auscultation bilaterally Cardio Rate: regular rate GI Inspection: Yes normal to inspection, No distended and Yes obesity Palpation (GI): Soft to palpation, not firm, nontender and No hepatosplenomegaly present Auscultation: normal bowel sounds General: Yes no CVA tenderness Back/Spine/Pelvis Back: no CVA tenderness Skin General skin exam: elasticity normal, turgor normal and dry skin Neuro General: patient oriented x3 Psych Appearance: grossly normal Mental Status: mental status grossly normal Assessment & Plan Assessment & Plan (1) Inflammatory bowel disease: Code(s): K52.9 - Noninfective gastroenteritis and colitis, unspecified Category: Medical (2) Interstitial cystitis: Code(s): N30.10 - Interstitial cystitis (chronic) without hematuria Category: Medical (3) GERD (gastroesophageal reflux disease): Code(s): K21.9 - Gastro-esophageal reflux disease without esophagitis Qualifiers: Esophagitis presence: esophagitis presence not specified Qualified Code(s): K21.9 - Gastro-esophageal reflux disease without esophagitis (4) Postprandial diarrhea: Code(s): K52.9 - Noninfective gastroenteritis and colitis, unspecified (5) Postprandial abdominal bloating: Code(s): R14.0 - Abdominal distension (gaseous) (6) Transaminitis: Code(s): R74.01 - Elevation of levels of liver transaminase levels Plan We will rechecked CRP as she is having more loose stools right now specially postprandially. Patient was told in the past that she was diagnosed with colitis, however was never placed on any medications. Will rule out IBD, pancreatic insufficiency. Patient will be sent for CT scan of the abdomen and pelvis with IV and oral contrast. Will check liver enzymes her ALT level was elevated in the past. Patient will try [id number] fiber supplements with probiotics, continue dietary restrictions as she is doing well with this. Follow-up in 2-3 months, sooner on as needed basis. Patient is agreeable to current plan of care and verbalizes understanding of instructions. We might plan for patient to go for colonoscopy and upper endoscopy depending on results and symptoms. Patient also has a history of cholecystectomy and given depending on what she eats she might postprandial diarrhea as post cholecystectomy syndrome. Patient is agreeable to current plan of care and verbalizes understanding of instructions. She was given the opportunity to ask questions and all questions answered. Thank you for allowing me to participate in her care. Orders: Orders C Reactive Protein Today K58.9 - Irritable bowel syndrome, unspecified Creatinine Today R10.11 - Right upper quadrant pain CT abdomen pelvis w IV con Today K52.9 - Noninfective gastroenteritis and colitis, unspecified, N30.10 - Interstitial cystitis (chronic) without hematuria, R10.9 - Unspecified abdominal pain, Z87.19 - Personal history of other diseases of the digestive system Pancreatic Elastase-1 Today R10.9 - Unspecified abdominal pain Liver Panel Today R74.01 - Elevation of levels of liver transaminase levels Calprotectin, Fecal Today R15.9 - Full incontinence of feces Blood Urea Nitrogen Today R10.11 - Right upper quadrant pain Medications: Discontinued bisacodyl (Dulcolax (bisacodyl)) Discontinued Reason: Doctor's Order 10 mg (2 x 5 mg) PO BEDTIME 180 tabs 4RF Coding Level of Care Code Est Pt Level 4 (82356) Complex EM visit Add On G2211 Diagnoses Inflammatory bowel disease K52.9 Interstitial cystitis N30.10 Gastroesophageal reflux disease, unspecified whether esophagitis present K21.9 Esophagitis presence: esophagitis presence not specified Postprandial diarrhea K52.9 Postprandial abdominal bloating R14.0 Transaminitis R74.01 Time Spent (min) 35 Comment 20 minutes spent with patient and additional 15 minutes spent reviewing her records
--- OUTSIDE RECORDS SUMMARY | 2024-03-31 15:28 | XMS_ITS ---
[facility] Name [facility] History of Medication Use Medication Directions Dispensed Refills Start Date End Date Stat lamoTRIgine (LaMICtal) 25 MG tablet TAKE 2 TABLETS BY MOUTH EVERY DAY AT BEDTIME 08/14/2023 active zolpidem (AMBIEN) 10 MG tablet Take 1 tablet (10 mg total) by mouth every night at bedtime. 08/14/2023 active Trintellix 20 MG TABS tablet TAKE 1 TABLET BY MOUTH EVERY DAY IN THE MORNING 08/14/2023 active traMADol (ULTRAM) 50 MG tablet 08/14/2023 active valACYclovir (VALTREX) 500 MG tablet Take 1 tablet (500 mg total) by mouth daily. 08/14/2023 active pantoprazole (PROTONIX) 40 MG tablet TAKE 1 TABLET BY MOUTH IN THE MORNING ON EMPTY STMACH 30 MINUTES BEFORE A MEAL 08/14/2023 active clonazePAM (KlonoPIN) 1 MG tablet Take 1 tablet (1 mg total) by mouth 3 (three) times a day. 08/14/2023 active lamoTRIgine (LaMICtal) 200 MG tablet TAKE 1 TABLET BY MOUTH EVERY DAY IN THE MORNING 08/14/2023 active hydrOXYzine (ATARAX) 25 MG tablet Take 1 tablet (25 mg total) by mouth every night at bedtime. 08/14/2023 active Vyvanse 10 MG CAPS Take 1 capsule by mouth every morning. 08/14/2023 active Linzess 145 MCG CAPS Take 1 capsule (145 mcg total) by mouth daily. 08/14/2023 active Problems Problem Status Onset Date Problem Type Date of Resoluti on Source Balance problem active EncounterDiagnosisAct CTTHNEMG Frequent falls active EncounterDiagnosisAct CTTHNEMG White matter disease active EncounterDiagnosisAct CTTHNE MG
== END 2024-03-31 16:48 | disposition home or self-care (01) ==
PROVIDERS: PCP Student in an Organized Health Care Education/Training Program; Visit Provider Nurse Practitioner Family
DX: K52.9 Noninfective gastroenteritis and colitis, unspecified (principal); N30.10 Interstitial cystitis (chronic) without hematuria; K21.9 Gastro-esophageal reflux disease without esophagitis; R14.0 Abdominal distension (gaseous); R74.01 Elevation of levels of liver transaminase levels
CPT/HCPCS: 99214; G2211

== ENCOUNTER → 2024-03-31 15:26 | Outpatient (BNVA) | payer OTHER, SELFPAY | PROVIDERS: PCP Student in an Organized Health Care Education/Training Program; Visit Provider Nurse Practitioner Family | DX: K52.9 Noninfective gastroenteritis and colitis, unspecified (principal); K21.9 Gastro-esophageal reflux disease without esophagitis; R14.0 Abdominal distension (gaseous); R74.01 Elevation of levels of liver transaminase levels; N30.10 Interstitial cystitis (chronic) without hematuria; Z90.49 Acquired absence of other specified parts of digestive tract | CPT/HCPCS: 99212 ==

== ENCOUNTER 2024-05-11 16:10 | Outpatient (REF) | payer OTHER, SELFPAY ==
--- OUTSIDE RECORDS SUMMARY | 2024-05-12 12:01 | XMS_ITS | Encounter Summary ---
Author Organization [facility] Address [address] [place] [address] Care Team Providers Care Window Installation Subcontractor Name Role Phone Nori Posey MD Primary Care Provider [phone] Encounter Details Date Type Department Care Team (Late st Contact Info) Description 01/02/2024 10:45 AM EDT Hospital Encounter TH HISTORIC ENCOUNTERS [facility] ONLY Yossi Marina MD [address] [place] [phone] Social History Tobacco Use Types Packs/Day Years [...] home since Sunday. Still has a black [place] in visual field of L eye. Still [...] ambulation ?? 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 The majority of the actual ajjl-qy-dsyi visit was spent counseling the patient with respect to the current neurological picture. Yossi Marina MD documented in this encounter Plan of Treatment Upcoming Encounters Date Type Department Care Team (Late st Contact Info) Description 07/31/2024 10:00 AM EDT Office Visit [facility] [place] [address] [phone] Yossi Marina MD [address] [phone] 08/11/2024 8:[address] [facility] Neurodiagnostic [address] [place] [phone] 08/12/2024 9:[address] [facility] Neurodiagnostic [address] [place] [phone] 08/13/2024 9:[address] [facility] Neurodiagnostic [address] [place] [phone] 08/14/2024 9:[address] [facility] Neurodiagnostic [address] [place] [phone] documented as of this encounter Visit Diagnoses Not on filedocumented in this encounter Care Teams Window Installation Subcontractor Relationship Specialty Start Date End Date Nori Posey MD [address] [place] [address] PCP - General 01/30/23 04/22/24 documented as of this encounter
--- OUTSIDE RECORDS SUMMARY | 2024-05-12 12:01 | XMS_ITS | Encounter Summary ---
Author Organization [facility] Address [address] [place] [address] Care Team Providers Care Manager Beauty Name Role Phone Unavailable Primary Care Provider Unavailabl e Encounter Details Date Type Department Care Team (Late st Contact Info) Description 05/09/2024 Lab [facility] Neurodiagnostic [address] [place] [phone] Rocío Watkins, MARYELLEN [address] [place] [address] [place] [address] Unspecified abnormalities of gait and mobility Social [...] Description 07/31/2024 10:00 AM EDT Office Visit [facility] [address] [phone] Yossi Marina MD [address] [phone] 08/11/2024 8:00 AM EDT Appointment [facility] Neurodiagnostic [address] [place] [phone] 08/12/2024 9:00 AM EDT Appointment [facility] Neurodiagnostic [address] [place] [phone] 08/13/2024 9:00 AM EDT Appointment [facility] Neurodiagnostic [address] [place] [address] 08/14/2024 9:00 AM EDT Appointment [facility] Neurodiagnostic [address] [place] [phone] documented as of this encounter Visit Diagnoses Diagnosis Unspecified abnormalities of gait and mobility documented in this encounter Orders Neurology Count Last Ordered Date First Orde red Date CONTINUOUS EEG 1 05/09/2024 documented in this encounter
--- OUTSIDE RECORDS SUMMARY | 2024-05-12 12:01 | XMS_ITS | Encounter Summary ---
Author Organization [facility] Address [address] [place] [address] Care Team Providers Care Film Processor Name Role Phone Unavailable Primary Care Provider Unavailabl e Reason for Referral * Consultation (Routine) - Authorized Specialty Diagnoses / Procedures Referred By Shanae escalera Referred To Contact Neurology Diagnoses Gait abnormality Rocío Watkins PA [address] [place] [address] [place] [address] Phone: tel: fax: Dedra Rios [address] [place] [address] Phone: tel: fax: Referral ID Status Reason Start Date Expiration Date Visits Requested Visits Authorized [id number] Authorized Specialty Services Required 05/05/2024 05/05/2025 1 1 Scheduling Instructions Please refer to general neurology at [facility] Encounter Details Date Type Department Care Team (Late st Contact Info) Description 05/05/2024 11:00 AM EST Office Visit [facility] for [facility] [address] [place] [address] Rocío Watkins PA [address] [facility] [place] [address] Gait abnormality (Primary Dx) Social History Tobacco [...] not heard regarding general neuro consultation at [facility] for second opinion. 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 The majority of the actual jqzy-zj-fqjt visit was spent counseling the patient with respect to the current neurological picture. Rocío Watkins PA-C documented in this encounter Plan of Treatment Upcoming Encounters Date Type Department Care Team (Late st Contact Info) Description 07/31/2024 10:00 AM EDT Office Visit [facility] [place] [address] [phone] Yossi Marina MD [address] [phone] 08/11/2024 8:00 AM EDT Appointment [facility] Neurodiagnostic [address] [place] [phone] 08/12/2024 9:00 AM EDT Appointment [facility] Neurodiagnostic [address] [place] [phone] 08/13/2024 9:00 AM EDT Appointment [facility] Neurodiagnostic [address] [place] [phone] 08/14/2024 9:00 AM EDT Appointment [facility] Neurodiagnostic [address] [place] [phone] Scheduled Referrals Name Type Priority Associated Diagnoses [...]
--- OUTSIDE RECORDS SUMMARY | 2024-05-12 12:01 | XMS_ITS | Clinical Summary ---
Author Organization [facility] Address [address] [place] [address] Care Team Providers Care Help Desk Operator Name Role Phone Nori Posey MD Primary Care Provider [phone] Allergies Active Allergy Reactions Criticality Noted Date Comments Roma 08/30/2023 Medications Medication Sig Dispensed Refills Start [...] age to complete this topic Care Teams Help Desk Operator Relationship Specialty Start Date End Date Nori Posey MD [address] [place] [address] PCP - General Internal Medicine 08/01/23
--- OUTSIDE RECORDS SUMMARY | 2024-05-12 12:01 | XMS_ITS | Encounter Summary ---
Author Organization [facility] Address [address] [place] [address] Care Team Providers Care Janitor Helper Name Role Phone Unavailable Primary Care Provider Unavailabl e Encounter Details Date Type Department Care Team (Late Contact Info) Description 05/12/2024 Lab [facility] Neurodiagnostic [address] [place] [phone] Rocío Watkins, MARYELLEN [address] [place] [address] [place] [address] Unspecified abnormalities of gait and mobility Social [...] Description 07/31/2024 10:00 AM EDT Office Visit [facility] [address] [phone] Yossi Marina MD [address] [phone] 08/11/2024 8:00 AM EDT Appointment [facility] Neurodiagnostic [address] [place] [phone] 08/12/2024 9:00 AM EDT Appointment [facility] Neurodiagnostic [address] [place] [phone] 08/13/2024 9:00 AM EDT Appointment [facility] Neurodiagnostic [address] [place] [address] 08/14/2024 9:00 AM EDT Appointment [facility] Neurodiagnostic [address] [place] [phone] documented as of this encounter Visit Diagnoses Diagnosis Unspecified abnormalities of gait and mobility documented in this encounter Orders Neurology Count Last Ordered Date First Orde red Date CONTINUOUS EEG 1 05/09/2024 documented in this encounter
--- OUTSIDE RECORDS SUMMARY | 2024-05-12 12:01 | XMS_ITS | Clinical Summary ---
Author Organization [facility] Address [address] [place] [address] Phone Care Team Providers Care Spinning Machine Tender Name Role Phone Unavailable Primary Care Provider [...] Date Type Department Care Team Description 05/12/2024 [facility] Neurodiagnostic [address] [place] [address] Rocío Watkins PA Unspecified abnormalities of gait and mobility 05/09/2024 Lab [facility] Neurodiagnostic [address] [place] [address] Rocío Watkins PA Unspecified abnormalities of gait and mobility 05/05/2024 11:00 AM EST Office Visit [facility] 175 [facility] [address] [place] [address] Rocío Watkins PA Gait abnormality (Primary Dx) from Last 3 Months Immunizations Name Administration Dates Next Due Tdap Tetanus diptheria acell ular pertussis (Boostrix; Adacel) 7yo and older 05/04/2023 Surgical History Surgery Date Site/Laterality Comments CHOLECYSTECTOMY PROCEDURE: [place] LAPAROSCOPY SURG CHOLECYSTECTOMY HYSTERECTOMY 2014 PROCEDURE: HISTORICAL HYSTERECTOMY THERAPEUTIC PROCEDURE:THERAPEUTIC APPENDECTOMY PROCEDURE:APPENDECTOMY TONSILLECTOMY PROCEDURE:TONSILLECTOMY HYSTERECTOMY PROCEDURE:HYSTERECTOMY CHOLECYSTECTOMY PROCEDURE:CHOLECYSTECTOMY LUMBAR PUNCTURE PROCEDURE:LUMBAR PUNCTURE BLADDER SURGERY PROCEDURE:BLADDER SURGERY Medical History Medical History Date Comments Migraine headache DX:Migraine he adache HSV-2 (herpes simplex virus 2) infection DX:HSV-2 (herpes simplex virus 2) infection PTSD (post-traumatic stress disorder) DX:PTSD (post-traumatic stress disorder) Suicide and self-inflicted i njury ([facility]) DX:Suicide and self-inflicte d injury ([facility]) Major depression, chronic DX:Percy or depression, chronic [...] DX:Guaiac positive stools Hematuria DX:Hematuria Uterine cancer ([facility]) 2014 DX:Uter ine cancer (HCC) Interstitial cystitis [...] Description 07/31/2024 10:00 AM EDT Office Visit [facility] 175 [facility] [address] [place] [phone] Yossi Marina MD 175 [facility] [address] [place] [phone] 08/11/2024 8:00 AM EDT Appointment [facility] Neurodiagnostic [address] [place] [address] 08/12/2024 9:00 AM EDT Appointment [facility] Neurodiagnostic [address] [place] [address] 08/13/2024 9:00 AM EDT Appointment [facility] Neurodiagnostic [address] [place] [address] 08/14/2024 9:00 AM EDT Appointment [facility] Neurodiagnostic [address] [place] [address] Health Maintenance Due Date Last Done Comments [...] AM EST Narrative 06/05/2022 11:27 AM EST [facility] Diagnostic Imaging Department [address] [place], [place] [id number] Patient: ??PAULA JULES ?/Age/Sex: 1980 - 41 - F Unit#: ??[id number] ? Location/Status: ??SPDIMAM/REG CLI ? Mnemonic/Ordering Site: ??DIGSC/SPMAM Ordering Physician: ??VIDAL GARY DO Tay Screening Digital - 06/05/22854 EXAM: [facility] Screening Digital EXAM DATE AND TIME: 06/05/2022 8:56 AM HISTORY: ??Screening. Baseline exam. Maternal grandmother had breast carcinoma. COMPARISON: ??No comparison imaging. TECHNIQUE: CC and MLO views of both breasts were obtained using full field digital mammography. Bilateral digital breast tomosynthesis was performed in the MLO projection. Computer aided detection with kompany 7.2-H and Wedding Reality 3D 3.1 was employed. TISSUE DENSITY: b. [...] Routine screening mammogram BILATERAL in 1 year. 29261, 23365 3341F, 7025F Dictating Physician: ??KIYA MYLES MD Electronically Signed by: ??KIYA MYLES MD Dic Date/Time: ??06/05/22 1126 Sign date/Time: ??06/05/22 1127 Procedure Note Kiya Myles MD - 05/04/2023 [facility] Diagnostic Imaging Department [address] [place] [address] Patient: COY REDDPAULA/Age/Sex: 1980 - 41 - F Unit#: [id number] Location/Status: [facility] CLI Mnemonic/Ordering Site: [facility] Ordering Physician: VIDAL GARY DO [facility] Screening Digital - 06/05/22 - 0855 EXAM: [facility] Screening Digital EXAM DATE AND TIME: 06/05/2022 8:56 AM HISTORY: Screening. Baseline exam. Maternal grandmother had breastcarcinoma. COMPARISON: No comparison imaging. TECHNIQUE: CC and MLO views of both breasts were obtained using fullfield digital mammography. Bilateral digital breast tomosynthesis was performedin the MLO projection. Computer aided detection with kompany 7.2-H andWedding Reality 3D 3.1 was employed. TISSUE DENSITY: b. [...] Routine screening mammogram BILATERAL in 1 year. 76541, 12170 3341F, 7025F Dictating Physician: KIYA MYLES MD [...] to Health Maintenance Insurance [place] [facility] [employer]
[2024-05-19 16:08] LABS: Pancreatic Elastase-1 >800 mcg/g (>200)
[2024-05-19 17:19] LABS: Calprotectin, Fecal 85 mcg/g
== END 2024-05-11 16:11 | disposition home or self-care (01) ==
LOC: HO.LNP 16:10
PROVIDERS: Visit Provider Nurse Practitioner Family
DX: R15.9 Full incontinence of feces (principal)
CPT/HCPCS: 82656; 83993

== ENCOUNTER 2024-05-12 09:26 | Outpatient (REF) | payer OTHER, SELFPAY ==
--- OUTSIDE RECORDS SUMMARY | 2024-05-12 10:09 | XMS_ITS | Encounter Summary ---
Author Organization [facility] Address [address] [place] [address] Care Team Providers Care Skirt Clipper Name Role Phone Unavailable Primary Care Provider Unavailabl e Encounter Details Date Type Department Care Team (Late Contact Info) Description 05/12/[address] [facility] [address] [place] [phone] Rocío Watkins, MARYELLEN [address] [place] [address] [place] [address] Unspecified abnormalities of gait and mobility Social History Tobacco Use Types Packs/Day Years Used Date Smoking Tobacco: Unknown Alcohol Use Standard Drinks/Week Comments Not Currently 0 (1 standard drink = 0.6 oz pur e alcohol) Comments Unknown Sex and Gender Information Value Date Recorded Sex Assigned at Not on file Legal Sex Female 4:39 AM EST Gender Identity Not on file Sexual Orientation Not on file documented as of this encounter Plan of Treatment Upcoming Encounters Date Type Department Care Team (Late st Contact Info) Description 07/31/2024 10:00 AM EDT Office Visit [facility] [address] [phone] Yossi Marina MD [address] [phone] 08/11/2024 8:[address] [facility] [address] [place] [phone] 08/12/2024 9:[address] [facility] [address] [place] [phone] 08/13/2024 9:[address] [facility] [address] [place] [address] 08/14/2024 9:[address] [facility] [address] [place] [phone] documented as of this encounter Visit Diagnoses Diagnosis Unspecified abnormalities of gait and mobility documented in this encounter Orders Neurology Count Last Ordered Date First Orde red Date CONTINUOUS EEG 1 05/09/2024 documented in this encounter
--- OUTSIDE RECORDS SUMMARY | 2024-05-12 10:09 | XMS_ITS | Clinical Summary ---
Author Organization [employer] [facility] Address [address] [place] [address] Care Team Providers Care Manager Oracle Name Role Phone Nori Posey MD Primary Care Provider [phone] Allergies Active Allergy Reactions Criticality Noted Date Comments [place] 08/30/2023 Medications Medication Sig Dispensed Refills Start Date End Date Status clonazePAM (KlonoPIN) 1 MG tablet Take 1 tablet (1 mg total) by mouth 3 (three) times a day. 0 07/25/2023 Active hydrOXYzine (ATARAX) 25 MG tablet Take 1 tablet (25 mg total) by mouth every night at bedtime. 0 07/24/2023 Active lamoTRIgine (LaMICtal) 200 MG tablet TAKE 1 TABLET BY MOUTH EVERY DAY IN THE MORNING 0 06/18/2023 Active lamoTRIgine (LaMICtal) 25 MG tablet TAKE 2 TABLETS BY MOUTH EVERY DAY AT BEDTIME 0 06/18/2023 Active Linzess 145 MCG CAPS Take 1 capsule (145 mcg total) by mouth daily. 0 06/27/2023 Active Vyvanse 10 MG CAPS Take 1 capsule by mouth every morning. 0 06/25/2023 Active pantoprazole (PROTONIX) 40 MG tablet TAKE 1 TABLET BY MOUTH IN THE MORNING ON EMPTY STMACH 30 MINUTES BEFORE A MEAL 0 04/25/2023 Active traMADol (ULTRAM) 50 MG tablet 0 07/26/2023 Active valACYclovir (VALTREX) 500 MG tablet Take 1 tablet (500 mg total) by mouth daily. 0 11/02/2022 Active Trintellix 20 MG TABS tablet TAKE 1 TABLET BY MOUTH EVERY DAY IN THE MORNING 0 07/10/2023 Active zolpidem (AMBIEN) 10 MG tablet Take 1 tablet (10 mg total) by mouth every night at bedtime. 0 07/25/2023 Active tamsulosin (FLOMAX) 0.4 MG CAPS Take 1 capsule (0.4 mg total) by mouth every night at bedtime. 0 08/17/2023 Active traZODone (DESYREL) 50 MG tablet Take 1 tablet (50 mg total) by mouth every night at bedtime. 0 11/23/2023 Active phenazopyridine (PYRIDIUM) 200 MG tablet TAKE ONE TABLET BY MOUTH EVERY 8 HOURS NEEDED 0 12/14/2023 Active Myrbetriq 50 MG TB24 TAKE ONE TABLET BY MOUTH EVERY DAY 0 12/17/2023 Active famotidine (PEPCID) 20 MG tablet TAKE 1 TABLET BY MOUTH 2 TIMES DAILY NEEDED FOR HEARTBURN FOR UP TO 30 DAYS. 0 11/25/2023 Active Social History Tobacco Use Types Packs/Day Years Used Date Smoking Tobacco: Unknown Tobacco Cessation:Counseling Given: Not Answered Sex and Gender Information Value Date Recorded Sex Assigned at Not on file Gender Identity Not on file Sexual Orientation Not on file Job Start Date Occupation Industry Not on file Not on file Not on file Last Filed Vital Signs Vital Sign Reading Time Taken Comments Blood Pressure 119/83 01/02/2024 11:11 AM EDT Pulse 98 01/02/2024 11:11 AM EDT Temperature 36.1 ??C (96.9 ??F) 01/02/2024 11:11 AM E DT Respiratory Rate - - Oxygen Saturation 96% 11/26/2023 2:48 PM EDT Inhaled Oxygen Concentration - - Weight 95.3 kg (210 lb) 10/16/2023 8:03 AM EDT Height 160 cm (5' 3 ) 10/16/2023 8:03 AM EDT Body Mass Index 37.2 10/16/2023 8:03 AM EDT Plan of Treatment Health Maintenance Due Date Last Done Comments Hepatitis B Vaccines (1 of 3 - 3-dose series) 1981 Hepatitis C Screening 1981 COVID-19 Vaccine (#1) 05/07/1982 Depression Screening 1993 BMI Counseling 11/05/1999 Preventative Health Evaluation 11/05/1999 Cervical Cancer Screening (P ap Smear) 2002 Influenza Vaccine (#1) 2023 DTap / Tdap / Td (2 - Td or Tdap) 05/04/2033 024 Pneumococcal Vaccine Aged Out No long er eligible based on patient's age to complete this topic RSV Ped < 20 months Aged Out No longe r eligible based on patient's age to complete this topic Care Teams Manager Oracle Relationship Specialty Start Date End Date Nori Posey MD [address] [place] [phone] PCP - General Internal Medicine 08/01/23
--- OUTSIDE RECORDS SUMMARY | 2024-05-12 10:09 | XMS_ITS | Clinical Summary ---
Author Organization 175 [facility] Address [address] [place] [address] Phone Care Team Providers Care Leaf Sorter Name Role Phone Unavailable Primary Care Provider Unavailabl e Allergies Active Allergy Reactions Criticality Noted Date Comments Propofol Rash Medium 01/30/2023 Mild dermal reaction to sedatives in general Soy 05/05/2024 Medications bisacodyL (DULCOLAX) 5 mg EC tablet Take 2 tabs by mouth right before beginning bowel prep. Follow instructions given by office for timing. 023 Active clonazePAM (KlonoPIN) 1 mg tablet Take 1 Tablet by mouth 3 times daily. Active lamoTRIgine (LaMICtal) 200 mg tablet Take 250 mg by mouth daily. Active ondansetron ODT (ZOFRAN-ODT) 4 mg disintegrating tablet Take 1 Tablet by mouth every 8 hours as needed for Nausea. 023 Active valACYclovir (VALTREX) 500 mg tablet TAKE 1 TABLET BY MOUTH EVERY DAY 024 Active vortioxetine (TRINTELLIX) 20 mg tablet Take?by mouth daily. Active traMADoL (Ultram) 50 mg tablet Take 1 Tablet by mouth 4 times daily. Active fluticasone propionate (FLONASE) 50 mcg/actuation nasal spray Administer into each nostril. by Nasal route. - Nasal Active zolpidem tartrate (AMBIEN ORAL) Take 10 mg by mouth at bedtime. - Oral Active pantoprazole (PROTONIX) 40 mg EC tablet TAKE 1 TABLET BY MOUTH IN THE MORNING ON EMPTY STMACH 30 MINUTES BEFORE A MEAL 90 tablet 3 01/17/2 025 Active esomeprazole (NexIUM) [address] capsule Take 1 capsule (40 mg total) by mouth 1 (one) time each day before breakfast. Do not open capsule. Active cyanocobalamin (VITAMIN B-12) 100 mcg tablet Take 1 tablet (100 mcg total) by mouth 1 (one) time each day. Active calcitrioL (ROCALTROL) 0.25 mcg capsule Take by mouth 1 (one) time each day. Active magnesium citrate solution Take by mouth 1 (one) time. Active magnesium, amino acid chelate, 133 mg tablet Take 1 tablet (133 mg total) by mouth 2 (two) times a day. Active hydrOXYzine HCL (ATARAX) 10 mg tablet Take by mouth. Activ e lisdexamfetamine (VYVANSE) 40 mg capsule Take 1 Capsule by mouth every morning. 2024 Discontinued(T herapy completed) pantoprazole (PROTONIX) 40 mg EC tablet TAKE 1 TABLET BY MOUTH IN THE MORNING ON EMPTY STMACH 30 MINUTES BEFORE A MEAL 024 2024 Discontinued linaCLOtide (LINZESS) 145 mcg capsule Take 1 Capsule by mouth daily. - Oral 2024 Discontinued albuterol HFA (PROVENTIL HFA;VENTOLIN HFA) 108 (90 Base) MCG/ACT inhaler Inhale by mouth. Inhale 2 Puffs into the lungs every 4 hours as needed for Cough or Wheezing. - Inhalation 2024 Discontinued(T herapy completed) Linzess 145 mcg capsule TAKE 1 CAPSULE BY MOUTH EVERY DAY 30 capsule 11 025 2024 Discontinued(T herapy completed) Active Problems Problem Noted Date Diagnosed Date Agoraphobia with panic disorder 03/06/2022 Alopecia (capitis) totalis 03/06/2022 Body dysmorphic disorder 03/06/2022 History of suicidal behavior 03/06/2022 HSV-2 (herpes simplex virus 2) infection 022 Major depressive disorder 03/06/2022 Migraine 03/06/2022 Overview (03/03/2024): Amitryptilline daily PTSD (post-traumatic stress disorder) 03/06/2022 Encounters Date Type Department Care Team Description 05/12/2024 [facility] [address] [place] [address] Rocío Watkins PA Unspecified abnormalities of gait and mobility 05/09/2024 Lab [facility] [address] [place] [address] Rocío Watkins PA Unspecified abnormalities of gait and mobility 05/05/2024 11:00 AM EST Office Visit [facility] 175 [facility] [address] [place] [address] Rocío Watkins PA Gait abnormality (Primary Dx) from Last 3 Months Immunizations Name Administration Dates Next Due Tdap Tetanus diptheria acell ular pertussis (Boostrix; Adacel) 7yo and older 05/04/2023 Surgical History Surgery Date Site/Laterality Comments CHOLECYSTECTOMY PROCEDURE: [place] LAPAROSCOPY SURG CHOLECYSTECTOMY HYSTERECTOMY 2014 PROCEDURE: HISTORICAL HYSTERECTOMY THERAPEUTIC PROCEDURE:THERAPEUTIC APPENDECTOMY PROCEDURE:APPENDECTOMY TONSILLECTOMY PROCEDURE:TONSILLECTOMY HYSTERECTOMY PROCEDURE:HYSTERECTOMY CHOLECYSTECTOMY PROCEDURE:CHOLECYSTECTOMY LUMBAR PUNCTURE PROCEDURE:LUMBAR PUNCTURE BLADDER SURGERY PROCEDURE:BLADDER SURGERY Medical History Medical History Date Comments Migraine headache DX:Migraine he adache HSV-2 (herpes simplex virus 2) infection DX:HSV-2 (herpes simplex virus 2) infection PTSD (post-traumatic stress disorder) DX:PTSD (post-traumatic stress disorder) Suicide and self-inflicted i njury ([facility]) DX:Suicide and self-inflicte d injury ([facility]) Major depression, chronic DX:Percy or depression, chronic Body dysmorphic disorder DX:Body dysmorphic disorder Panic disorder/agoraphobia, sev agoraphobc avoid/panc attck full rmssn DX:Panic disord er/agoraphobia, sev agoraphobc avoid/panc attck full rmssn Esophageal reflux DX:Esophageal reflux Epigastric pain DX:Epigastric pa in Panic disorder without agoraphobia DX:Panic disorder without agoraphobia Biliary dyskinesia DX:Biliary dy skinesia Abdominal pain DX:Abdominal jeni n Rectal bleeding DX:Rectal bleedi ng Abdominal pain DX:Abdominal jeni n Guaiac positive stools DX:Guaiac positive stools Hematuria DX:Hematuria Uterine cancer ([facility]) 2014 DX:Uter ine cancer (HCC) Interstitial cystitis DX:Interst itial cystitis Herpes genitalis in women DX:Her pes genitalis in women Family History Medical History Relation Name Comments Parkinson's Disease Father Prostate cancer Father Breast cancer Other Colon cancer Other Relation Name Status Comments Father Other Social History Tobacco Use Types Packs/Day Years Used Date Smoking Tobacco: Unknown Tobacco Cessation:Counseling Given: Not Answered Alcohol Use Standard Drinks/Week Comments Not Currently 0 (1 standard drink = 0.6 oz pur e alcohol) Comments Unknown Sex and Gender Information Value Date Recorded Sex Assigned at Not on file Legal Sex Female 4:39 AM EST Gender Identity Not on file Sexual Orientation Not on file Obstetrics History Last Filed Vital Signs Vital Sign Reading Time Taken Comments Blood Pressure 119/83 01/02/2024 11:11 AM EDT Sitting Left arm Pulse 98 01/02/2024 11:11 AM EDT Temperature 36.2 ??C (97.1 ??F) 05/05/2024 1 1:08 AM EST Respiratory Rate - - Oxygen Saturation 94% 05/05/2024 11: 08 AM EST Inhaled Oxygen Concentration - - Weight 107 kg (236 lb) 05/05/2024 11:08 AM EST Height 160 cm (5' 3 ) 05/05/2024 11:08 AM EST Body Mass Index 41.81 05/05/2024 11:08 AM EST Plan of Treatment Upcoming Encounters Date Type Department Care Team (Late st Contact Info) Description 07/31/2024 10:00 AM EDT Office Visit [facility] 175 [facility] [address] [place] [phone] Yossi Marina MD 175 [facility] [address] [place] [phone] 08/11/2024 8:00 AM EDT Appointment [facility] [address] [place] [address] 08/12/2024 9:00 AM EDT Appointment [facility] [address] [place] [address] 08/13/2024 9:00 AM EDT Appointment [facility] [address] [place] [address] 08/14/2024 9:00 AM EDT Appointment [facility] [address] [place] [address] Health Maintenance Due Date Last Done Comments Hepatitis B Vaccines (1 of 3 - 19+ 3-dose series) 2000 Cervical Cancer Screening: P ap Smear 2002 COVID-19 Vaccine (3 - Modern a risk series) 01/03/2021 12/06/2020, 10/19/2020 HIV Screening 03/05/2022 Social Influencers of Health Screening 03/05/2022 DTaP,Tdap,and Td Vaccines (3 - Td or Tdap) 11/02/2023 05/04/2023, 12/16/2012 Influenza Vaccine (#1) 2023 9, 06/13/2007 Depression Screening 05/04/2024 05/04/2023 Breast Cancer Screening 06/05/2024 06/05/2022 Cholesterol Screening (Lipid Panel) 03/06/2027 03/06/2022 Hepatitis C Screening Completed 03/06/2022 HIB Vaccines Aged Out No longer eligi ble based on patient's age to complete this topic HPV Vaccines Aged Out No longer eligi ble based on patient's age to complete this topic Hepatitis A Vaccines Aged Out No long er eligible based on patient's age to complete this topic IPV Vaccines Aged Out No longer eligi ble based on patient's age to complete this topic MMR Vaccines Aged Out No longer eligi ble based on patient's age to complete this topic Meningococcal ACWY Vaccine Aged Out N o longer eligible based on patient's age to complete this topic Meningococcal B Vacine Aged Out No lo nger eligible based on patient's age to complete this topic Pneumococcal Vaccine: Pediatrics (0 to 5 Years) and At-Risk Patients (6 to 64 Years) Aged Out No longer eligible b ased on patient's age to complete this topic RSV Immunization Patients Under 20 months Aged Out No longer eligible b ased on patient's age to complete this topic Varicella Vaccines Aged Out No longer eligible based on patient's age to complete this topic Procedures Procedure Name Priority Date/Time Associated Diagnosis Comments HM DEPRESSION SCREENING Routine 05/04/2023 TAY SCREENING DIGITAL Routine 06/05/2022 11:27 AM EST Encounter for screening mammogram for malignant neoplasm of breast HEPATITIS C SCREENING Routine 03/06/2022 LIPID PANEL Routine 03/06/2022 from Last 3 Months or Most Recently Relevant to Health Maintenance Results * Depression Screening (05/04/2023) Depression Screening Abstracted us Historical Provider MD HEALTH MAINTENANCE Final Result * TAY SCREENING DIGITAL (06/05/2022 11:27 AM EST) Anatomical Region Laterality Modality Mammography 06/05/2022 8:32 AM EST Narrative 06/05/2022 11:27 AM EST [facility] Diagnostic Imaging Department [address] [place], [place] [id number] Patient: ??PAULA JULES ?/Age/Sex: 1980 - 41 - F Unit#: ??[id number] ? Location/Status: ??SPDIMAM/REG CLI ? Mnemonic/Ordering Site: ??DIGSC/SPMAM Ordering Physician: ??VIDAL GARY DO Tay Screening Digital - 06/05/22854 EXAM: [facility] Screening Digital EXAM DATE AND TIME: 06/05/2022 8:56 AM HISTORY: ??Screening. Baseline exam. Maternal grandmother had breast carcinoma. COMPARISON: ??No comparison imaging. TECHNIQUE: CC and MLO views of both breasts were obtained using full field digital mammography. Bilateral digital breast tomosynthesis was performed in the MLO projection. Computer aided detection with NanoPack 7.2-H and MLW Squared 3D 3.1 was employed. TISSUE DENSITY: b. There are scattered areas of fibroglandular density. FINDINGS: No suspicious masses, grouped microcalcifications, or areas of architectural distortion are seen. The skin and vascularity are unremarkable. IMPRESSION: No mammographic evidence of malignancy is seen. A negative mammogram in the presence of a clinically suspicious palpable abnormality does not preclude the possibility of malignancy or alter the indications for biopsy. BI-RADS: ??Category 1: Negative RECOMMENDATION(S): 1: Routine screening mammogram BILATERAL in 1 year. 69440, 28877 3341F, 7025F Dictating Physician: ??KIYA MYLES MD Electronically Signed by: ??KIYA MYLES MD Dic Date/Time: ??06/05/22 1126 Sign date/Time: ??06/05/22 1127 Procedure Note Kiya yMles MD - 05/04/2023 [facility] Diagnostic Imaging Department [address] [place] [address] Patient: COY REDDPAULA/Age/Sex: 1980 - 41 - F Unit#: [id number] Location/Status: [facility] CLI Mnemonic/Ordering Site: [facility] Ordering Physician: VIDAL GARY DO [facility] Screening Digital - 06/05/22 - 0855 EXAM: [facility] Screening Digital EXAM DATE AND TIME: 06/05/2022 8:56 AM HISTORY: Screening. Baseline exam. Maternal grandmother had breastcarcinoma. COMPARISON: No comparison imaging. TECHNIQUE: CC and MLO views of both breasts were obtained using fullfield digital mammography. Bilateral digital breast tomosynthesis was performedin the MLO projection. Computer aided detection with NanoPack 7.2-H andMLW Squared 3D 3.1 was employed. TISSUE DENSITY: b. There are scattered areas of fibroglandular density. FINDINGS: No suspicious masses, grouped microcalcifications, or areas ofarchitectural distortion are seen. The skin and vascularity are unremarkable. IMPRESSION: No mammographic evidence of malignancy is seen. A negative mammogram in the presence of a clinically suspicious palpable abnormality does not preclude the possibility of malignancy or alter the indications for biopsy. BI-RADS: Category 1: Negative RECOMMENDATION(S): 1: Routine screening mammogram BILATERAL in 1 year. 25769, 16548 3341F, 7025F Dictating Physician: KIYA MYLES MD Electronically Signed by: KIYA MYLES MD Dic Date/Time: 06/05/22 1126 Sign date/Time: 06/05/22 1127 Vidal Gary DO IMG BI PROCEDURES Final Result * Hepatitis C Screening (03/06/2022) Hepatitis C Screening Abstracted Historical Provider HEALTH MAINTENANCE Final Result * (ABNORMAL) Lipid panel (03/06/2022) LDL/HDL Ratio 4 0 - 4 Triglycerides 104 0 - 150 mg/dL Cholesterol 203(A) 0 - 200 mg/dL HDL 53 >=40 mg/dL LDL Cholesterol 130(A) 0 - 100 mg/dL Blood Venous blood specimen / Unknown us Historical Provider LAB BLOOD ORDERABLES Mari l Result from Last 3 Months or Most Recently Relevant to Health Maintenance Insurance MEDICAID - [facility]
--- OUTSIDE RECORDS SUMMARY | 2024-05-12 10:09 | XMS_ITS | Encounter Summary ---
Author Organization [facility] Address [address] [place] [address] Care Team Providers Care [employer] Name Role Phone Nori Posey MD Primary Care Provider [phone] Encounter Details Date Type Department Care Team (Late st Contact Info) Description 01/02/2024 10:45 AM EDT Hospital Encounter TH HISTORIC ENCOUNTERS [facility] ONLY Yossi Marina MD [address] [place] [phone] Social History Tobacco Use Types Packs/Day Years [...] ambulation ?? 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 The majority of the actual [id number] visit was spent counseling the patient with respect to the current neurological picture. Yossi Marina MD documented in this encounter Plan of Treatment Upcoming Encounters Date Type Department Care Team (Late st Contact Info) Description 07/31/2024 10:00 AM EDT Office Visit [facility] [place] [facility] [place] [address] [phone] Yossi Marina MD [address] [phone] 08/11/2024 8:00 AM EDT Appointment [facility] [address] [place] [phone] 08/12/2024 9:00 AM EDT Appointment [facility] [address] [place] [phone] 08/13/2024 9:00 AM EDT Appointment [facility] [address] [place] [phone] 08/14/2024 9:00 AM EDT Appointment [facility] [address] [place] [phone] documented as of this encounter Visit Diagnoses Not on filedocumented in this encounter Care Teams [employer] Relationship Specialty Start Date End Date Nori Posey MD [address] [place] [phone] PCP - General 01/30/23 04/22/24 documented as of this encounter
--- OUTSIDE RECORDS SUMMARY | 2024-05-12 10:09 | XMS_ITS | Encounter Summary ---
Author Organization [facility] Address [address] [place] [address] Care Team Providers Care Administrative Office Assistant Name Role Phone Unavailable Primary Care Provider Unavailabl e Reason for Referral * Consultation (Routine) - Authorized Specialty Diagnoses / Procedures Referred By Shanae escalera Referred To Contact Neurology Diagnoses Gait abnormality Rocío Watkins PA [address] [place] [address] [place] [address] Phone: tel: fax: Dedra Rios [address] [place] [address] Phone: tel: fax: Referral ID Status Reason Start Date Expiration Date Visits Requested Visits Authorized [id number] Authorized Specialty Services Required 05/05/2024 05/05/2025 1 1 Scheduling Instructions Please refer to general neurology at [facility] Encounter Details Date Type Department Care Team (Late st Contact Info) Description 05/05/2024 11:00 AM EST Office Visit [facility] for [facility] [address] [place] [address] Rocío Watkins PA [address] [facility] [place] [address] Gait abnormality (Primary Dx) Social History Tobacco Use Types Packs/Day Years [...] Sign Reading Time Taken Comments Blood Pressure - - Pulse - - Temperature 36.2 ??C (97.1 ??F) 05/05/2024 11:[address] Respiratory Rate - - Oxygen Saturation 94% 05/05/2024 11:08 AM EST Inhaled Oxygen Concentration - - Weight 107 kg (236 lb) 05/05/2024 11:08 AM EST Height 160 cm (5' 3 ) 05/05/2024 11:08 AM EST Body Mass Index 41.81 05/05/2024 11:08 AM EST documented in this encounter Progress Notes * MARYELLEN Moon - 05/05/2024 11:00 AM EST anHPI: Paula Simmons is a 43 y.o. year old female referred to our center by Nori Posey MD for evaluation and management of White matter lesion of the brain in the setting of multiple neurological symptoms Interval history Patient returns for follow-up visit is accompanied by her partner. She states that she has been doing home physical therapy which has been somewhat helpful for her. Walking has improved a bit and today she is able to walk without a cane. She continues a gentle yoga program which she finds helpful. Other symptoms persist without significant changes. She continues to note cognitive changes. Sometimes she has episodes of entire body shaking-occurs about twice per week. She feels exhausted most ofthe time and is experiencing insomnia-working with her psychiatrist on medications for this. Was recently diagnosed with interstitial cystitis and is following with urology. She is seeing GI for chronic diarrhea and has colonoscopy and endoscopy scheduled. She notes difficulty swallowing at times Her notes that she continues to experience seizures. During the seizure she does not lose consciousness but will start shaking and will not respond. States she never heard regarding scheduling 48-hour EEG which was ordered previously. She also has not heard regarding general neuro consultation at [facility] for second opinion. EMG performed 01/07/2024 read as normal. Last office visit: Patient is here for follow up ,accompanied [...] the hospital reviewed and discussed EEG results HPI 42 yo female with medical history of [...] surgery and removal of her gall bladder In her younger years she was a [...] leave house now has difficulty with ambulation Off note She went to [place] last December 2022 and had balance problem fell and had 2 concussions She was requested to see neurology she was evaluated had MRI brain done and showed non specific white matter lesions She went to [facility] to be evaluated and was diagnosed [...] trouble with her memory mainly short-term memory Active Symptoms: Bowel/bladder: she was diagnosed with Intersitial cystitis March 2023 on ketamine and tramadol given by urologist Dr. 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 [...] with lesions that are not concerning for inflammation. Patient states that she has not heard regarding scheduling second general neuro opinion at [facility] or the 72-hour EEG that was previously ordered. I will enter new referral/orders for both of these today. 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 The majority of the actual bhxq-dq-hvdg visit was spent counseling the patient with respect to the current neurological picture. Rocío Watkins PA-C documented in this encounter Plan of Treatment Upcoming Encounters Date Type Department Care Team (Late st Contact Info) Description 07/31/2024 10:00 AM EDT Office Visit [facility] [place] [address] [phone] Yossi Marina MD [address] [phone] 08/11/2024 8:00 AM EDT Appointment [facility] Neurodiagnostic [address] [place] [address] 08/12/2024 9:00 AM EDT Appointment [facility] Neurodiagnostic [address] [place] [phone] 08/13/2024 9:00 AM EDT Appointment [facility] Neurodiagnostic [address] [place] [address] 08/14/2024 9:00 AM EDT Appointment [facility] Neurodiagnostic [address] [place] [phone] Scheduled Referrals Name Type Priority Associated Diagnoses Order Schedule Ambulatory referral to Neurology Outpatient Referral Routine Gait abnormality 1 Occurrences starting 05/05/2024 until 05/05/2025 documented as of this encounter Visit Diagnoses Diagnosis Gait abnormality- Primary Abnormality of gait documented in this encounter Discontinued Medications Medication Sig Discontinue Reason Start Date End Da te lisdexamfetamine (VYVANSE) 40 mg capsule Take 1 Capsule by mouth every morning. Therapy completed 05/06/2024 Linzess 145 mcg capsule TAKE 1 CAPSULE BY MOUTH EVERY DAY Therapy completed 04/28/2024 05/06/2024 albuterol HFA (PROVENTIL HFA;VENTOLIN HFA) 108 (90 Base) MCG/ACT inhaler Inhale by mouth. Inhale 2 Puffs into the lungs every 4 hours as needed for Cough or Wheezing. - Inhalation Therapy completed 05/06/2024 documented as of this encounter Historical Medications * This list may reflect changes made after this encounter. hydrOXYzine HCL (ATARAX) 10 mg tablet Take by mouth. magnesium, amino acid chelate, 133 mg tablet Take 1 tablet (133 mg total) by mouth 2 (two) times a day. magnesium citrate solution Take by mouth 1 (one) time. calcitrioL (ROCALTROL) 0.25 mcg capsule Take by mouth 1 (one) time each day. cyanocobalamin (VITAMIN B-12) 100 mcg tablet Take 1 tablet (100 mcg total) by mouth 1 (one) time each day. esomeprazole (NexIUM) [address] capsule Take 1 capsule (40 mg total) by mouth 1 (one) time each day before breakfast. Do not open capsule. added in this encounter Orders General Supply Count Last Ordered Date First Or dered Date CANE 05/05/2024 documented in this encounter
--- OUTSIDE RECORDS SUMMARY | 2024-05-12 10:09 | XMS_ITS | Encounter Summary ---
Author Organization [facility] Address [address] [place] [address] Care Team Providers Care Caseworker Intake Name Role Phone Unavailable Primary Care Provider Unavailabl e Encounter Details Date Type Department Care Team (Late st Contact Info) Description 05/09/2024 Lab [facility] Neurodiagnostic [address] [place] [phone] Rocío Watikns, MARYELLEN [address] [place] [address] [place] [address] Unspecified abnormalities of gait and mobility Social [...] Description 07/31/2024 10:00 AM EDT Office Visit [facility] [address] [phone] Yossi Marina MD [address] [phone] 08/11/2024 8:00 AM EDT Appointment [facility] Neurodiagnostic [address] [place] [phone] 08/12/2024 9:00 AM EDT Appointment [facility] Neurodiagnostic [address] [place] [address] 08/13/2024 9:00 AM EDT Appointment [facility] Neurodiagnostic [address] [place] [address] 08/14/2024 9:00 AM EDT Appointment [facility] Neurodiagnostic [address] [place] [phone] documented as of this encounter Visit Diagnoses Diagnosis Unspecified abnormalities of gait and mobility documented in this encounter Orders Neurology Count Last Ordered Date First Orde red Date CONTINUOUS EEG 1 05/09/2024 documented in this encounter
[2024-05-12 10:38] LABS: Alanine Aminotransferase 58 U/L (0-31); Albumin Level 4.1 g/dL (3.5-5.0); Alkaline Phosphatase 145 U/L (39-117); Aspartate Amino Transferase 28 U/L (5-31); Bilirubin Direct 0.1 mg/dL (0.0-0.5); Bilirubin Total 0.3 mg/dL (0.0-1.0); Blood Urea Nitrogen 13 mg/dL (9-16); C Reactive Protein 2.87 mg/dL (< or = 0.50); Estimated Glomerular Filt Rate > 60; Total Protein 8.1 g/dL (6.5-8.0)
== END 2024-05-12 09:27 | disposition home or self-care (01) ==
LOC: HO.LAB 09:26
PROVIDERS: Visit Provider Nurse Practitioner Family
DX: K58.9 Irritable bowel syndrome, unspecified (principal); R74.01 Elevation of levels of liver transaminase levels; R10.11 Right upper quadrant pain
CPT/HCPCS: 36415; 80076; 82565; 84520; 86140

== ENCOUNTER 2024-05-21 13:17 | Outpatient (REF) | payer OTHER, SELFPAY ==
--- NOTE | ~2024-05-21 | CT_ITS ---
CLINICAL HISTORY: R10.9 - Unspecified abdominal pain CT abdomen and pelvis with contrast Comparison: None Findings: No consolidation or effusion. Gallbladder is absent. Liver, spleen, pancreas, adrenal glands and kidneys demonstrate no acute process. No radiopaque stones or hydronephrosis. No bowel obstruction, pneumoperitoneum, or pneumatosis. Status post hysterectomy. Unremarkable ovaries. Appendix not definitively seen. No pathologically enlarged lymph nodes. No vascular dilation. No fluid collections. No acute fracture. IMPRESSION: No acute findings to explain abdominal pain. Obstructive uropathy, biliary obstruction or bowel obstruction. Appendix not seen. This document has been electronically signed by: Francoise Griffith MD on 05/22/2024 08:48:33
--- OUTSIDE RECORDS SUMMARY | 2024-05-21 13:36 | XMS_ITS | Clinical Summary ---
Author Organization [facility] [employer] Address [address] [place] [address] Care Team Providers Care Sales Support Specialist Name Role Phone Nori Posey MD Primary Care Provider [phone] Allergies Active Allergy Reactions Criticality Noted Date Comments [place] 08/30/2023 Medications Medication Sig Dispensed Refills Start [...] age to complete this topic Care Teams Sales Support Specialist Relationship Specialty Start Date End Date Nori Posey MD [address] [place] [phone] PCP - General Internal Medicine 08/01/23
--- OUTSIDE RECORDS SUMMARY | 2024-05-21 13:36 | XMS_ITS | Encounter Summary ---
Author Organization [facility] Address [address] [place] [address] Care Team Providers Care Script Writer Name Role Phone Nori Posey MD Primary Care Provider [phone] Encounter Details Date Type Department Care Team (Late st Contact Info) Description 01/02/2024 10:45 AM EDT Hospital Encounter TH HISTORIC ENCOUNTERS [facility] ONLY Yossi Marina MD [address] [place] [phone] Social History Tobacco Use Types Packs/Day Years [...] home since Sunday. Still has a black barrow in visual field of L eye. 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 The majority of the actual vulg-fr-stwz visit was spent counseling the patient with respect to the current neurological picture. Yossi Marina MD documented in this encounter Plan of Treatment Upcoming Encounters Date Type Department Care Team (Late st Contact Info) Description 07/31/2024 10:00 AM EDT Office Visit [facility] [place] [address] [address] Yossi Marina MD [address] [phone] 08/11/2024 8:00 AM EDT Appointment [facility] Neurodiagnostic [address] [place] [phone] 08/12/2024 9:00 AM EDT Appointment [facility] Neurodiagnostic [address] [place] [phone] 08/13/2024 9:00 AM EDT Appointment [facility] Neurodiagnostic [address] [place] [phone] 08/14/2024 9:00 AM EDT Appointment [facility] Neurodiagnostic [address] [place] [phone] documented as of this encounter Visit Diagnoses Not on filedocumented in this encounter Care Teams Script Writer Relationship Specialty Start Date End Date Nori Posey MD [address] [place] [address] PCP - General 01/30/23 04/22/24 documented as of this encounter
--- OUTSIDE RECORDS SUMMARY | 2024-05-21 13:36 | XMS_ITS | Encounter Summary ---
Author Organization [facility] Address [address] [place] [address] Care Team Providers Care Marriage And Family Social Worker Name Role Phone Unavailable Primary Care Provider Unavailabl e Encounter Details Date Type Department Care Team (Late Contact Info) Description 05/12/[address] [facility] Neurodiagnostic [address] [place] [phone] Rocío Watkins, MARYELLEN [address] [place] [address] [place] [address] Unspecified abnormalities of gait and mobility Social [...] Description 07/31/2024 10:00 AM EDT Office Visit [facility] [address] [phone] Yossi Marina MD [address] [phone] 08/11/2024 8:[address] [facility] Neurodiagnostic [address] [place] [phone] 08/12/2024 9:[address] [facility] Neurodiagnostic [address] [place] [address] 08/13/2024 9:[address] [facility] Neurodiagnostic [address] [place] [address] 08/14/2024 9:[address] [facility] Neurodiagnostic [address] [place] [phone] documented as of this encounter Visit Diagnoses Diagnosis Unspecified abnormalities of gait and mobility documented in this encounter Orders Neurology Count Last Ordered Date First Orde red Date CONTINUOUS EEG 1 05/09/2024 documented in this encounter
--- OUTSIDE RECORDS SUMMARY | 2024-05-21 13:36 | XMS_ITS | Encounter Summary ---
Author Organization [facility] Address [address] [place] [address] Care Team Providers Care Water Well Driller Name Role Phone Unavailable Primary Care Provider Unavailabl e Reason for Referral * Consultation (Routine) - Authorized Specialty Diagnoses / Procedures Referred By Shanae escalera Referred To Contact Neurology Diagnoses Gait abnormality Rocío Watkins PA [address] [place] [address] [place] [address] Phone: tel: fax: Dedra Rios [address] [place] [address] Phone: tel: fax: Referral ID Status Reason Start Date Expiration Date Visits Requested Visits Authorized [id number] Authorized Specialty Services Required 05/05/2024 05/05/2025 1 1 Scheduling Instructions Please refer to general neurology at [facility] Encounter Details Date Type Department Care Team (Late st Contact Info) Description 05/05/2024 11:00 AM EST Office Visit [facility] for [facility] [address] [place] [address] Rocío Watkins PA [address] [facility] [place] [address] Gait abnormality (Primary Dx) Social History Tobacco [...] female referred to our center by Nori oPsey MD for evaluation and management of White [...] not heard regarding general neuro consultation at [facility] for second opinion. 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 The majority of the actual wimt-hu-xazt visit was spent counseling the patient with respect to the current neurological picture. Rocío Watkins PA-C documented in this encounter Plan of Treatment Upcoming Encounters Date Type Department Care Team (Late st Contact Info) Description 07/31/2024 10:00 AM EDT Office Visit [facility] [place] [facility] [place] [address] [phone] Yossi Marina MD [address] [phone] 08/11/2024 8:00 AM EDT Appointment [facility] Neurodiagnostic [address] [place] [address] 08/12/2024 9:00 AM EDT Appointment [facility] Neurodiagnostic [address] [place] [address] 08/13/2024 9:00 AM EDT Appointment [facility] Neurodiagnostic [address] [place] [address] 08/14/2024 9:00 AM EDT Appointment [facility] Neurodiagnostic [address] [place] [phone] Scheduled Referrals Name Type Priority Associated Diagnoses [...]
--- OUTSIDE RECORDS SUMMARY | 2024-05-21 13:36 | XMS_ITS | Encounter Summary ---
Author Organization [facility] Address [address] [place] [address] Care Team Providers Care Baseball Winder Name Role Phone Unavailable Primary Care Provider Unavailabl e Encounter Details Date Type Department Care Team (Late st Contact Info) Description 05/13/2024 Lab [facility] Neurodiagnostic [address] [place] [phone] Rocío Watkins, MARYELLEN [address] [place] [address] [place] [address] Unspecified abnormalities of gait and mobility Social [...] Description 07/31/2024 10:00 AM EDT Office Visit [facility] [address] [phone] Yossi Marina MD [address] [phone] 08/11/2024 8:00 AM EDT Appointment [facility] Neurodiagnostic [address] [place] [phone] 08/12/2024 9:00 AM EDT Appointment [facility] Neurodiagnostic [address] [place] [address] 08/13/2024 9:00 AM EDT Appointment [facility] Neurodiagnostic [address] [place] [address] 08/14/2024 9:00 AM EDT Appointment [facility] Neurodiagnostic [address] [place] [phone] documented as of this encounter Visit Diagnoses Diagnosis Unspecified abnormalities of gait and mobility documented in this encounter Orders Neurology Count Last Ordered Date First Orde red Date CONTINUOUS EEG 1 05/13/2024 documented in this encounter
--- OUTSIDE RECORDS SUMMARY | 2024-05-21 13:36 | XMS_ITS | Encounter Summary ---
Author Organization [facility] Address [address] [place] [address] Care Team Providers Care Implementation Specialist Payroll Name Role Phone Unavailable Primary Care Provider Unavailabl e Encounter Details Date Type Department Care Team (Late st Contact Info) Description 05/14/2024 Lab [facility] Neurodiagnostic [address] [place] [phone] Rocío Watkins, MARYELLEN [address] [place] [address] [place] [address] Unspecified abnormalities of gait and mobility Social [...] Description 07/31/2024 10:00 AM EDT Office Visit [facility] [address] [phone] Yossi Marina MD [address] [phone] 08/11/2024 8:00 AM EDT Appointment [facility] Neurodiagnostic [address] [place] [phone] 08/12/2024 9:00 AM EDT Appointment [facility] Neurodiagnostic [address] [place] [address] 08/13/2024 9:00 AM EDT Appointment [facility] Neurodiagnostic [address] [place] [address] 08/14/2024 9:00 AM EDT Appointment [facility] Neurodiagnostic [address] [place] [phone] documented as of this encounter Visit Diagnoses Diagnosis Unspecified abnormalities of gait and mobility documented in this encounter Orders Neurology Count Last Ordered Date First Orde red Date CONTINUOUS EEG 1 05/13/2024 documented in this encounter
--- OUTSIDE RECORDS SUMMARY | 2024-05-21 13:36 | XMS_ITS | Encounter Summary ---
Author Organization [facility] Address [address] [place] [address] Care Team Providers Care Sparmaker Name Role Phone Unavailable Primary Care Provider Unavailabl e Encounter Details Date Type Department Care Team (Late Contact Info) Description 05/09/2024 Lab [facility] Neurodiagnostic [address] [place] [phone] Rocío Watkins, MARYELLEN [address] [place] [address] [place] [address] Unspecified abnormalities of gait and mobility Social [...] Description 07/31/2024 10:00 AM EDT Office Visit [facility] [address] [phone] Yossi Marina MD [address] [phone] 08/11/2024 8:00 AM EDT Appointment [facility] Neurodiagnostic [address] [place] [phone] 08/12/2024 9:00 AM EDT Appointment [facility] Neurodiagnostic [address] [place] [address] 08/13/2024 9:00 AM EDT Appointment [facility] Neurodiagnostic [address] [place] [address] 08/14/2024 9:00 AM EDT Appointment [facility] Neurodiagnostic [address] [place] [phone] documented as of this encounter Visit Diagnoses Diagnosis Unspecified abnormalities of gait and mobility documented in this encounter Orders Neurology Count Last Ordered Date First Orde red Date CONTINUOUS EEG 1 05/09/2024 documented in this encounter
--- OUTSIDE RECORDS SUMMARY | 2024-05-21 13:36 | XMS_ITS | Clinical Summary ---
Author Organization 175 [facility] Address [address] [place] [address] Phone Care Team Providers Care Snap Shearer Name Role Phone Unavailable Primary Care Provider [...] mouth every morning. 2024 Discontinued(T herapy completed) linaCLOtide (LINZESS) 145 mcg capsule Take 1 [...] Encounters Date Type Department Care Team Description 05/14/2024 Lab [facility] [address] [place] [phone] Rocío Watkins PA Unspecified abnormalities of gait and mobility 05/13/2024 [facility]ostic [address] [place] [phone] TeeteeiRocío, PA Unspecified abnormalities of gait and mobility 05/12/2024 [facility]diagnostic [address] [place] [phone] Panasci, Rocío L, PA Unspecified abnormalities of gait and mobility 05/09/2024 [facility]diagnostic [address] [place] [phone] Panasci, Rocío L, PA Unspecified abnormalities of gait and mobility 05/05/2024 11:00 AM EST Office Visit [facility] 175 [facility] [address] [place] [phone] PanewaiEneiday L, PA Gait abnormality (Primary Dx) from Last 3 Months Immunizations Name Administration Dates Next Due Tdap Tetanus diptheria acell ular pertussis (Boostrix; Adacel) 7yo and older 05/04/2023 Surgical History Surgery Date Site/Laterality Comments CHOLECYSTECTOMY PROCEDURE: [place] LAPAROSCOPY SURG CHOLECYSTECTOMY HYSTERECTOMY 2015 PROCEDURE: HISTORICAL HYSTERECTOMY THERAPEUTIC PROCEDURE:THERAPEUTIC APPENDECTOMY PROCEDURE:APPENDECTOMY TONSILLECTOMY PROCEDURE:TONSILLECTOMY HYSTERECTOMY PROCEDURE:HYSTERECTOMY CHOLECYSTECTOMY PROCEDURE:CHOLECYSTECTOMY LUMBAR PUNCTURE PROCEDURE:LUMBAR PUNCTURE BLADDER SURGERY PROCEDURE:BLADDER SURGERY Medical History Medical History Date Comments Migraine headache DX:Migraine he adache HSV-2 (herpes simplex virus 2) infection DX:HSV-2 (herpes simplex virus 2) infection PTSD (post-traumatic stress disorder) DX:PTSD (post-traumatic stress disorder) Suicide and self-inflicted i njury ([facility]) DX:Suicide and self-inflicte d injury ([facility]) Major depression, chronic DX:Percy or depression, chronic [...] DX:Guaiac positive stools Hematuria DX:Hematuria Uterine cancer (CMS/HCC) 2014 DX:Uter ine cancer (HCC) Interstitial cystitis [...] Description 07/31/2024 10:00 AM EDT Office Visit [facility] 175 [facility] [address] [place] [address] Yossi Marina MD 175 [facility] [address] [place] [phone] 08/11/2024 8:00 AM EDT Appointment [facility] [address] [place] [address] 08/12/2024 9:00 AM EDT Appointment [facility] [address] [place] [address] 08/13/2024 9:00 AM EDT Appointment [facility] [address] [place] [address] 08/14/2024 9:00 AM EDT Appointment [facility] [address] [place] [address] Health Maintenance Due Date Last Done Comments Hepatitis B Vaccines (1 of 3 - 19+ 3-dose series) 2000 Cervical Cancer Screening: P ap Smear 2002 COVID-19 Vaccine (3 - Modern a risk series) 01/03/2021 12/06/2020, 10/19/2020 HIV Screening 03/05/2022 Social Influencers of Health Screening 03/05/2022 Influenza Vaccine (#1) 2023 9, 06/13/2007 Depression Screening 05/04/2024 05/04/2023 Breast Cancer Screening 06/05/2024 06/05/2022 Cholesterol Screening (Lipid Panel) 03/06/2027 03/06/2022 DTaP,Tdap,and Td Vaccines (3 - Td or Tdap) 05/04/2033 05/04/2023, 12/16/2012 Hepatitis C Screening Completed 03/06/2022 HIB Vaccines [...] Procedure Name Priority Date/Time Associated Diagnosis Comments DEPRESSION SCREENING Routine 05/04/2023 [facility] SCREENING DIGITAL Routine 06/05/2022 11:27 AM EST Encounter for screening mammogram for malignant neoplasm of breast HEPATITIS C SCREENING Routine 03/06/2022 LIPID PANEL Routine 03/06/2022 from Last 3 Months or Most Recently Relevant to Health Maintenance Results * Depression Screening (05/04/2023) Depression Screening Abstracted us Historical Provider MD HEALTH MAINTENANCE Final Result * [facility] SCREENING DIGITAL (06/05/2022 11:27 AM EST) Anatomical Region Laterality Modality Mammography 06/05/2022 8:32 AM EST Narrative 06/05/2022 11:27 AM EST [facility] Diagnostic Imaging Department [address] [place] [address] Patient: ??PAULA JULES ?/Age/Sex: 1980 - 41 - F Unit#: ??[id number] ? Location/Status: ??SPDIMAM/REG CLI ? Mnemonic/Ordering Site: ??DIGSC/SPMAM Ordering Physician: ??VIDAL GARY DO [facility] Screening Digital - 06/05/22 - 854 EXAM: [facility] Screening Digital EXAM DATE AND TIME: 06/05/2022 8:56 AM HISTORY: ??Screening. Baseline exam. Maternal grandmother had breast carcinoma. COMPARISON: ??No comparison imaging. TECHNIQUE: CC and MLO views of both breasts were obtained using full field digital mammography. Bilateral digital breast tomosynthesis was performed in the MLO projection. Computer aided detection with [employer] 7.2-H and [employer] 3D 3.1 was employed. TISSUE DENSITY: b. [...] Routine screening mammogram BILATERAL in 1 year. [address], [address]60 3341F, 7025F Dictating Physician: ??KIYA MYLES MD Electronically Signed by: ??KIYA MYLES MD Dic Date/Time: ??06/05/22 1126 Sign date/Time: ??06/05/22 1127 Procedure Note Kiya Myles MD - 05/04/2023 [facility] Diagnostic Imaging Department [address] [place], [place] [id number] Patient: PAULA JULES./Age/Sex: 1980 - 41 - F Unit#: [id number] Location/Status: SPDIMAM/REG CLI Mnemonic/Ordering Site: [facility] Ordering Physician: VIDAL GARY DO [facility] Screening Digital - 06/05/22 - 854 EXAM: [facility] Screening Digital EXAM DATE AND TIME: 06/05/2022 8:56 AM HISTORY: Screening. Baseline exam. Maternal grandmother had breastcarcinoma. COMPARISON: No comparison imaging. TECHNIQUE: CC and MLO views of both breasts were obtained using fullfield digital mammography. Bilateral digital breast tomosynthesis was performedin the MLO projection. Computer aided detection with [employer] 7.2-H and[employer] 3D 3.1 was employed. TISSUE DENSITY: b. [...] Routine screening mammogram BILATERAL in 1 year. [address]8713, 78061 3341F, 7025F Dictating Physician: KIYA MYLES MD [...] mg/dL Blood Venous blood specimen / Unknown Historical Provider LAB BLOOD ORDERABLES Mari l Result from Last 3 Months or Most Recently Relevant to Health Maintenance Insurance MEDICAID - [place] [facility] [employer]
[2024-05-21] MEDS: iohexoL 350 MG/ML 100 ML INFUS..BTL 85 ML IV (15:59)
[2024-05-21] MEDS: Barium Sulfate Oral (Vanilla) 450 ML ORAL.SUSP 900 ML PO (16:00)
== END 2024-05-21 13:18 | disposition home or self-care (01) ==
LOC: HO.CT 13:17
PROVIDERS: PCP Student in an Organized Health Care Education/Training Program; Visit Provider Nurse Practitioner Family
DX: R10.9 Unspecified abdominal pain (principal); N30.10 Interstitial cystitis (chronic) without hematuria; K52.9 Noninfective gastroenteritis and colitis, unspecified; Z87.19 Personal history of other diseases of the digestive system
CPT/HCPCS: 74177; Q9967

== ENCOUNTER → 2024-05-21 13:19 | Outpatient (BNV) | payer OTHER, SELFPAY | PROVIDERS: PCP Student in an Organized Health Care Education/Training Program; Visit Provider Radiology Diagnostic Radiology | DX: R10.9 Unspecified abdominal pain (principal) | CPT/HCPCS: 74177 ==

== ENCOUNTER 2024-05-30 10:38 | Outpatient (AMB) | payer OTHER, SELFPAY ==
--- NOTE | 2024-05-30 10:45 | MHC.OFFVIS ---
Vital Signs 05/30/24 11:00 Height 5 ft 3 in Weight 231 lb 7.766 oz BMI 41.0 BP 136/82 Blood Pressure Location Rt brachial Position Sitting Pulse 106 H Pulse Source Pulse Oximeter Pulse Oximetry (%) 97 Oxygen Delivery Method Room Air Intake Visit Reasons: 2 mo f/u Intake Note: ESTABLISHED PATIENT for mgmt of GERD, constipation w/ associated abd pain. Labs and imaging done. Chief Complaint; C/O abd pain, generalized, urgency, loose stools, difficulty with digestion and visible solid / undigested food particles in stool. Pt is trying to limit intake in order to limit BMs without much relief. Pt has also attempted smaller portions and chewing their food more carefully to aid with digestion w/o relief. Pt has stopped dulcolax and linzess at this time due to sx. Receiving Room Clerk Required: No Accompanied by: Significant Other Allergies propofol Allergy (Intermediate, Verified 05/30/24 10:46) Itching morphine Allergy (Mild, Verified 05/30/24 10:51) Itching HPI HPI 2 mo f/u: Details: LAST VISIT: Inflammatory bowel disease Interstitial cystitis GERD (gastroesophageal reflux disease) Postprandial diarrhea Postprandial abdominal bloating Transaminitis Plan We will rechecked CRP as she is having more loose stools right now specially postprandially. Patient was told in the past that she was diagnosed with colitis, however was never placed on any medications. Will rule out IBD, pancreatic insufficiency. Patient will be sent for CT scan of the abdomen and pelvis with IV and oral contrast. Will check liver enzymes her ALT level was elevated in the past. Patient will try [id number] fiber supplements with probiotics, continue dietary restrictions as she is doing well with this. Follow-up in 2-3 months, sooner on as needed basis. Patient is agreeable to current plan of care and verbalizes understanding of instructions. We might plan for patient to go for colonoscopy and upper endoscopy depending on results and symptoms. Patient also has a history of cholecystectomy and given depending on what she eats she might postprandial diarrhea as post cholecystectomy syndrome. Patient is agreeable to current plan of care and verbalizes understanding of instructions. She was given the opportunity to ask questions and all questions answered. ? Thank you for allowing me to participate in her care. Orders Orders C Reactive Protein Today K58.[address] abdomen pelvis w IV con Today K52.9, N30.10, R10.9, Z87.19 Pancreatic Elastase-1 Today R10.9 Liver Panel Today R74.01 Calprotectin, Fecal Today R15.9 Blood Urea Nitrogen Today R10.11 Medications Discontinued bisacodyl (Dulcolax (bisacodyl)) Discontinued Reason: Doctor's Order 10 mg (2 x 5 mg) PO BEDTIME 180 tabs 4RF TODAY'S VISIT Patient is here today for follow-up. Patient continues to have symptoms that are pretty debilitating. Patient reports that no matter what she eats, trying to eat clean and healthy everything goes through her. Patient reports that shortly after she eats undigested food is in her stool. Patient took pictures of her bowel movements. Reports also abdominal pain and severe bloating. Her symptoms of acid reflux are suppressed for the most part, however she continues to occasionally have symptoms. So far we ruled out pancreatic insufficiency and IBD. Most likely patient might have a post cholecystectomy syndrome were needs to have agents that bowel and bile salts like cholestyramine or Welchol. Patient had elevated liver enzymes last blood draw. Patient denies any melena, hematochezia, unintentional weight loss or ribbon like stools. Patient reports that she does not remember when she had a normal formed stool [facility] Medical History History of colitis Gastric ulcer History of suicidal ideation Anxiety Agoraphobia MDD (major depressive disorder) PTSD (post-traumatic stress disorder) Surgical History H/O: hysterectomy Hx of cholecystectomy (~12/2022) Family History Father Prostate cancer Maternal Uncle Colon cancer Maternal Grandmother Breast cancer Review of Systems Const Denies weight gain and Denies weight loss ENT Reports no additional complaints, Denies dysphagia and Denies odynophagia Card Reports no additional complaints Resp Reports no additional complaints GI Reports abdominal pain, Denies belching, Denies melena, Reports bloating, Denies change in bowel habits, Denies dysphagia, Denies excessive flatus, Denies dyspepsia, Reports heartburn, Denies diarrhea, Reports loose stools, Denies nausea, Denies odynophagia and Denies vomiting Reports no additional complaints Musc Reports no additional complaints Neuro Reports no additional complaints Psych Reports no additional complaints Endo Reports no additional complaints Physical Exam Vital Signs: Last Vital Signs Pulse 106 H 05/30/24 11:00 BP 136/82 05/30/24 11:00 Pulse Ox 97 05/30/24 11:00 Oxygen Delivery Method Room Air 05/30/24 11:00 BMI result Body Mass Index 41.0 Const Other: Patient is sitting in the wheelchair General: healthy appearing and no acute distress Nutritional Appearance: obese Orientation/consciousness: patient oriented x3 Resp Effort & Inspection: normal respiratory effort, able to speak in complete sentences, no tracheal deviation and symmetric chest movement Auscultation: clear to auscultation bilaterally Cardio Rate: regular rate GI Inspection: Yes normal to inspection, No distended and Yes obesity Palpation (GI): Soft to palpation, not firm, nontender and No hepatosplenomegaly present Auscultation: normal bowel sounds General: Yes no CVA tenderness Back/Spine/Pelvis Back: no CVA tenderness Skin General skin exam: elasticity normal, turgor normal and dry skin Neuro General: patient oriented x3 Psych Appearance: grossly normal Mental Status: mental status grossly normal Results Reviewed Results Reviewed: Laboratory Tests 10/14/23 01/08/24 05/11/24 16:08 16:18 16:16 Total Bilirubin Direct Bilirubin AST 23 ALT 53 H Alkaline Phosphatase C-Reactive Protein Lipase 19 Vitamin B12 358 25-OH Vitamin D Total 15 L Folate 7.7 Stool Calprotectin 85 Stool Pancreat Elastase >800 Tiss Transglutamin IgG <1.0 Tiss Transglutamin IgA <1.0 05/12/24 09:40 Total Bilirubin 0.3 Direct Bilirubin 0.1 AST 28 ALT 58 H Alkaline Phosphatase 145 H C-Reactive Protein 2.87 H Lipase Vitamin B12 25-OH Vitamin D Total Folate Stool Calprotectin Stool Pancreat Elastase Tiss Transglutamin IgG Tiss Transglutamin IgA Assessment & Plan Assessment & Plan (1) Interstitial cystitis: Code(s): N30.10 - Interstitial cystitis (chronic) without hematuria Category: Medical (2) GERD (gastroesophageal reflux disease): Code(s): K21.9 - Gastro-esophageal reflux disease without esophagitis Qualifiers: Esophagitis presence: esophagitis presence not specified Qualified Code(s): K21.9 - Gastro-esophageal reflux disease without esophagitis (3) Postprandial diarrhea: Code(s): K52.9 - Noninfective gastroenteritis and colitis, unspecified (4) Postprandial abdominal bloating: Code(s): R14.0 - Abdominal distension (gaseous) (5) Transaminitis: Code(s): R74.01 - Elevation of levels of liver transaminase levels Plan So far we ruled out inflammatory bowel disease as well as pancreatic insufficiency. Increased liver enzymes were rule out any out immune disorders. Patient reports abdominal pain will check for chronic pancreatitis. Continues to have diarrhea. Will do GI panel, check for C diff, ova and parasite, fecal fat qualitative. Will send patient for liver ultrasound with elastography. Most likely this is related to bile spilling and inability to digest food. Will send patient script for cholestyramine to see if she can try it. Patient was also encouraged to increase fiber. Will send Citrucel patient can take 1-2 tablets daily. Encouraged patient to take also vitamin-D higher dose. Increase fluid intake and activity. Follow-up in 2 months, sooner on as needed basis. Patient is agreeable to this plan and verbalizes understanding of instructions. She was given the opportunity to ask questions and all questions answered. Thank you for allowing me to participate in her care Orders: Orders Hemoglobin A1c 05/30/24 Z83.3 - Family history of diabetes mellitus Hepatitis A,B,C Profile 05/30/24 R79.89 - Other specified abnormal findings of blood chemistry Ceruloplasmin 05/30/24 R79.89 - Other specified abnormal findings of blood chemistry IRON PROFILE 05/30/24 D64.9 - Anemia, unspecified Lipase 05/30/24 R10.9 - Unspecified abdominal pain Liver Fibrosis Pnl 05/30/24 K76.0 - Fatty (change of) liver, not elsewhere classified Ferritin 05/30/24 R74.8 - Abnormal levels of other serum enzymes Mitochondrial Antibody 05/30/24 R79.89 - Other specified abnormal findings of blood chemistry Ova and Parasite 05/30/24 R19.7 - Diarrhea, unspecified GI Panel 05/30/24 R19.7 - Diarrhea, unspecified CDiff Gene PCR 05/30/24 R19.7 - Diarrhea, unspecified Alpha Fetoprotein 05/30/24 R79.89 - Other specified abnormal findings of blood chemistry Smooth Muscle Antibody 05/30/24 R79.89 - Other specified abnormal findings of blood chemistry Gamma Glutamyl Transpeptidase 05/30/24 R74.8 - Abnormal levels of other serum enzymes Fecal Fat Qualitative 05/30/24 R19.7 - Diarrhea, unspecified US abdomen keene w elastography 05/30/24 K76.0 - Fatty (change of) liver, not elsewhere classified Medications: New methylcellulose (laxative) (Citrucel) take it with full glass of water 500 mg PO DAILY 90 tabs 2RF K59.00 - Constipation, unspecified cholecalciferol (vitamin D3) 125 mcg PO DAILY 90 caps 3RF E55.9 - Vitamin D deficiency, unspecified cholestyramine-aspartame 4 gram no meds 1 hr before/4-6 hr after dose 4 grams PO QIDACHS 210 grams 3RF Discontinued cholecalciferol (vitamin D3) Discontinued Reason: Doctor's Order 50 mcg PO DAILY 90 caps 3RF R79.89 - Other specified abnormal findings of blood chemistry Coding Level of Care Code Est Pt Level 4 (01686) Complex EM visit Add On G2211 Diagnoses Interstitial cystitis N30.10 Gastroesophageal reflux disease, unspecified whether esophagitis present K21.9 Esophagitis presence: esophagitis presence not specified Postprandial diarrhea K52.9 Postprandial abdominal bloating R14.0 Transaminitis R74.01 Time Spent (min) 40 Comment 25 minutes spent with patient and additional 15 minutes spent reviewing her records
[2024-05-30 11:00] VITALS: BP 136/82; PULSE 106; O2SAT 97; BMI 41.0
--- OUTSIDE RECORDS SUMMARY | 2024-05-30 12:09 | XMS_ITS | Clinical Summary ---
Author Organization [facility] Address [address] [place] [address] Care Team Providers Care Sales Assistants And Salespersons Name Role Phone Nori Posey MD Primary Care Provider [phone] Allergies Active Allergy Reactions Criticality Noted Date Comments [place] 08/30/2023 Medications Medication Sig Dispensed Refills Start [...] to complete this topic Care Teams Sales Assistants And Salespersons Relationship Specialty Start Date End Date Nori Posey MD [address] [place] [phone] PCP - General Internal Medicine 08/01/23
--- OUTSIDE RECORDS SUMMARY | 2024-05-30 12:10 | XMS_ITS | Encounter Summary ---
Author Organization [facility] Address [address] [place] [address] Care Team Providers Care Station Installer Name Role Phone Unavailable Primary Care Provider Unavailabl e Encounter Details Date Type Department Care Team (Late st Contact Info) Description 05/09/2024 Lab [facility] Neurodiagnostic [address] [place] [phone] Rocío Watkins, MARYELLEN [address] [place] [address] [place] [address] Unspecified abnormalities of gait and mobility Social [...] Description 07/31/2024 10:00 AM EDT Office Visit [facility] [address] [phone] Yossi Marina MD [address] [phone] 08/11/2024 8:00 AM EDT Appointment [facility]diagnostic [address] [place] [phone] 08/12/2024 9:00 AM EDT Appointment [facility] [address] [place] [address] 08/13/2024 9:00 AM EDT Appointment [facility] [address] [place] [address] 08/14/2024 9:00 AM EDT Appointment [facility] [address] [place] [phone] documented as of this encounter Visit Diagnoses Diagnosis Unspecified abnormalities of gait and mobility documented in this encounter Orders Neurology Count Last Ordered Date First Orde red Date CONTINUOUS EEG 1 05/09/2024 documented in this encounter
--- OUTSIDE RECORDS SUMMARY | 2024-05-30 12:10 | XMS_ITS | Encounter Summary ---
Author Organization [facility] Address [address] [place] [address] Care Team Providers Care Cancer Registry Manager Name Role Phone Unavailable Primary Care Provider Unavailabl e Reason for Referral * Consultation (Routine) - Authorized Specialty Diagnoses / Procedures Referred By Shanae escalera Referred To Contact Neurology Diagnoses Gait abnormality Rocío Watkins PA [address] [place] [address] [place] [address] Phone: tel: fax: Dedra Rios [address] [place] [phone] Phone: tel: fax: Referral ID Status Reason Start Date Expiration Date Visits Requested Visits Authorized [id number] Authorized Specialty Services Required 05/05/2024 05/05/2025 1 1 Scheduling Instructions Please refer to general neurology at [facility] Encounter Details Date Type Department Care Team (Late st Contact Info) Description 05/05/2024 11:00 AM EST Office Visit [facility] for [facility] [address] [place] [address] Rocío Watkins PA [address] [facility] [place] [address] Gait abnormality (Primary Dx) Social History Tobacco [...] not heard regarding general neuro consultation at [facility] for second opinion. 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 The majority of the actual bojk-df-pbmd visit was spent counseling the patient with respect to the current neurological picture. Rocío Watkins PA-C documented in this encounter Plan of Treatment Upcoming Encounters Date Type Department Care Team (Late st Contact Info) Description 07/31/2024 10:00 AM EDT Office Visit [facility] [address] [phone] Yossi Marina MD [address] [phone] 08/11/2024 8:00 AM EDT Appointment [facility] Neurodiagnostic [address] [place] [address] 08/12/2024 9:00 AM EDT Appointment [facility] [address] [place] [address] 08/13/2024 9:00 AM EDT Appointment [facility] [address] [place] [address] 08/14/2024 9:00 AM EDT Appointment [facility] [address] [place] [phone] Scheduled Referrals Name Type Priority Associated Diagnoses [...]
--- OUTSIDE RECORDS SUMMARY | 2024-05-30 12:10 | XMS_ITS | Encounter Summary ---
Author Organization [facility] Address [address] [place] [address] Care Team Providers Care Applications Processor Name Role Phone Nori Posey MD Primary Care Provider [phone] Encounter Details Date Type Department Care Team (Late st Contact Info) Description 01/02/2024 10:45 AM EDT Hospital Encounter TH HISTORIC ENCOUNTERS [facility] ONLY Yossi Marina MD [address] [place] [phone] Social History Tobacco Use Types Packs/Day Years [...] home since Sunday. Still has a black coushatta in visual field of L eye. Still [...] ambulation ?? 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 The majority of the actual coxp-hd-cbpx visit was spent counseling the patient with respect to the current neurological picture. Yossi Marina MD documented in this encounter Plan of Treatment Upcoming Encounters Date Type Department Care Team (Late st Contact Info) Description 07/31/2024 10:00 AM EDT Office Visit [facility] [address] [phone] Yossi Marina MD [address] [phone] 08/11/2024 8:00 AM EDT Appointment [facility] Neurodiagnostic [address] [place] [phone] 08/12/2024 9:00 AM EDT Appointment [facility] [address] [place] [phone] 08/13/2024 9:00 AM EDT Appointment [facility] [address] [place] [phone] 08/14/2024 9:00 AM EDT Appointment [facility] [address] [place] [phone] documented as of this encounter Visit Diagnoses Not on filedocumented in this encounter Care Teams Applications Processor Relationship Specialty Start Date End Date Nori Posey MD [address] [place] [id number] PCP - General 01/30/23 04/22/24 documented as of this encounter
--- OUTSIDE RECORDS SUMMARY | 2024-05-30 12:10 | XMS_ITS | Clinical Summary ---
Author Organization 175 [facility] Address [address] [place] [address] Phone Care Team Providers Care Insurance Claims Adjuster Name Role Phone Unavailable Primary Care Provider Unavailabl e Allergies Active Allergy Reactions Criticality Noted Date Comments Propofol Rash Medium 01/30/2023 Mild dermal reaction to sedatives in general Soy 05/05/2024 Medications bisacodyL (DULCOLAX) 5 mg EC tablet Take 2 tabs by mouth right before beginning bowel prep. Follow instructions given by office for timing. 02/03/20 23 Active clonazePAM (KlonoPIN) 1 mg tablet Take 1 Tablet by mouth 3 times daily. Active lamoTRIgine (LaMICtal) 200 mg tablet Take 250 mg by mouth daily. Active ondansetron ODT (ZOFRAN-ODT) 4 mg disintegrating tablet Take 1 Tablet by mouth every 8 hours as needed for Nausea. 11/01/19 23 Active valACYclovir (VALTREX) 500 mg tablet TAKE 1 TABLET BY MOUTH EVERY DAY 01/18/20 24 Active vortioxetine (TRINTELLIX) 20 mg tablet Take?by [...] MINUTES BEFORE A MEAL 90 tablet 3 01/17/20 25 Active esomeprazole (NexIUM) [address] capsule [...] mg tablet Take by mouth. Activ e famotidine (PEPCID) 20 mg tablet Take 1 tablet (20 mg total) by mouth 2 (two) times a day. 180 tablet 05/30/19 25 Active lisdexamfetamine (VYVANSE) 40 mg capsule Take 1 Capsule by mouth every morning. 025 Discontin ued(Thera py completed ) albuterol HFA (PROVENTIL HFA;VENTOLIN HFA) 108 (90 Base) MCG/ACT inhaler Inhale by mouth. Inhale 2 Puffs into the lungs every 4 hours as needed for Cough or Wheezing. - Inhalation 025 Discontin ued(Thera py completed ) Linzess 145 mcg capsule TAKE 1 CAPSULE BY MOUTH EVERY DAY 30 capsule 11 04/28/19 25 025 Discontin ued(Thera py completed ) Active Problems Problem Noted Date Diagnosed Date Agoraphobia with panic disorder 03/06/2022 Alopecia (capitis) totalis 03/06/2022 Body dysmorphic disorder 03/06/2022 History of suicidal behavior 03/06/2022 HSV-2 (herpes simplex virus 2) infection 022 Major depressive disorder 03/06/2022 Migraine 03/06/2022 Overview (03/03/2024): Amitryptilline daily PTSD (post-traumatic stress disorder) 03/06/2022 Encounters Date Type Department Care Team Description 05/14/2024 [facility] Neurodiagnostic [address] [place] [phone] Rocío Watkins L, PA Unspecified abnormalities of gait and mobility 05/13/2024 [facility] Neurodiagnostic [address] [place] [phone] TeeteeiRocío L, PA Unspecified abnormalities of gait and mobility 05/12/2024 [facility] Neurodiagnostic [address] [place] [phone] PanewaiEneiday L, PA Unspecified abnormalities of gait and mobility 05/09/2024 [facility] Neurodiagnostic [address] [place] [phone] Panewai, Rocío L, PA Unspecified abnormalities of gait and mobility 05/05/2024 11:00 AM EST Office Visit [facility] 175 [facility] [address] [place] [phone] TeeteeiRocío L, PA Gait abnormality (Primary Dx) from Last 3 Months Immunizations Name Administration Dates Next Due Tdap Tetanus diptheria acell ular pertussis (Boostrix; Adacel) 7yo and older 05/04/2023 Surgical History Surgery Date Site/Laterality Comments CHOLECYSTECTOMY PROCEDURE: MD LAPAROSCOPY SURG CHOLECYSTECTOMY HYSTERECTOMY 2015 PROCEDURE: HISTORICAL HYSTERECTOMY THERAPEUTIC PROCEDURE:THERAPEUTIC APPENDECTOMY PROCEDURE:APPENDECTOMY TONSILLECTOMY PROCEDURE:TONSILLECTOMY HYSTERECTOMY PROCEDURE:HYSTERECTOMY CHOLECYSTECTOMY PROCEDURE:CHOLECYSTECTOMY LUMBAR PUNCTURE PROCEDURE:LUMBAR PUNCTURE BLADDER SURGERY PROCEDURE:BLADDER SURGERY Medical History Medical History Date Comments Migraine headache DX:Migraine he adache HSV-2 (herpes simplex virus 2) infection DX:HSV-2 (herpes simplex virus 2) infection PTSD (post-traumatic stress disorder) DX:PTSD (post-traumatic stress disorder) Suicide and self-inflicted i njury ([facility]) DX:Suicide and self-inflicte d injury ([facility]) Major depression, chronic DX:Percy or depression, chronic [...] Office Visit [facility] 175 [facility] [address] [place] [address] Yossi Marina MD 175 [facility] [place] [address] [place] [phone] 08/11/2024 8:00 AM EDT Appointment [facility] Neurodiagnostic [address] [place] [address] 08/12/2024 9:00 AM EDT Appointment [facility] Neurodiagnostic [address] [place] [address] 08/13/2024 9:00 AM EDT Appointment [facility] Neurodiagnostic [address] [place] [address] 08/14/2024 9:00 AM EDT Appointment [facility] Neurodiagnostic [address] [place] [phone] Health Maintenance Due Date Last Done Comments [...] Associated Diagnosis Comments DEPRESSION SCREENING Routine 05/04/2023 [facility] SCREENING DIGITAL Routine 06/05/2022 11:27 AM EST Encounter for screening mammogram for malignant neoplasm of breast HEPATITIS C SCREENING Routine 03/06/2022 LIPID PANEL Routine 03/06/2022 from Last 3 Months or Most Recently Relevant to Health Maintenance Results * Depression Screening (05/04/2023) Depression Screening Abstracted Historical Provider HEALTH MAINTENANCE Final Result * [facility] SCREENING DIGITAL (06/05/2022 11:27 AM EST) Anatomical Region Laterality Modality Mammography 06/05/2022 8:32 AM EST Narrative 06/05/2022 11:27 AM EST [facility] Diagnostic Imaging Department [address] [place] [address] Patient: ??PAULA JULES ?/Age/Sex: 1980 - - Unit#: ??[id number] ? Location/Status: ??SPDIMAM/REG CLI ? Mnemonic/Ordering Site: ??DIGSC/SPMAM Ordering Physician: ??VIDAL GARY DO Tay Screening Digital - 06/05/22 - 854 EXAM: [facility] Screening Digital EXAM DATE AND TIME: 06/05/2022 8:56 AM HISTORY: ??Screening. Baseline exam. Maternal grandmother had breast carcinoma. COMPARISON: ??No comparison imaging. TECHNIQUE: CC and MLO views of both breasts were obtained using full field digital mammography. Bilateral digital breast tomosynthesis was performed in the MLO projection. Computer aided detection with Lentigen 7.2-H and Velasca 3D 3.1 was employed. TISSUE DENSITY: b. [...] Routine screening mammogram BILATERAL in 1 year. [address]3395, 66395 3341F, 7025F Dictating Physician: ??KIYA MYLES MD Electronically Signed by: ??KIYA MYLES MD Dic Date/Time: ??06/05/22 1126 Sign date/Time: ??06/05/22 1127 Procedure Note Kiya Myles MD - 05/04/2023 [facility] Diagnostic Imaging Department [address] [place] [id number] Patient: PAULA JULES /Age/Sex: 1980 - 41 - F Unit#: [id number] Location/Status: SPDIMAM/REG CLI Mnemonic/Ordering Site: [facility] Ordering Physician: VIDAL GARY DO Tay Screening Digital - 06/05/22 - 854 EXAM: [facility] Screening Digital EXAM DATE AND TIME: 06/05/2022 8:56 AM HISTORY: Screening. Baseline exam. Maternal grandmother had breastcarcinoma. COMPARISON: No comparison imaging. TECHNIQUE: CC and MLO views of both breasts were obtained using fullfield digital mammography. Bilateral digital breast tomosynthesis was performedin the MLO projection. Computer aided detection with Lentigen 7.2-H andVelasca 3D 3.1 was employed. TISSUE DENSITY: b. [...] Routine screening mammogram BILATERAL in 1 year. 86463, 79247 3341F, 7025F Dictating Physician: KIYA MYLES MD [...] Maintenance Insurance MEDICAID - [facility]
--- OUTSIDE RECORDS SUMMARY | 2024-05-30 12:10 | XMS_ITS | Encounter Summary ---
Author Organization [facility] Address [address] [place] [address] Care Team Providers Care Human Resources Vice President Name Role Phone Unavailable Primary Care Provider Unavailabl e Encounter Details Date Type Department Care Team (Late st Contact Info) Description 05/14/2024 Lab [facility] Neurodiagnostic [address] [place] [phone] Rocío Watkins, MARYELLEN [address] [place] [address] [place] [address] Unspecified abnormalities of gait and mobility Social [...] Description 07/31/2024 10:00 AM EDT Office Visit [facility] [address] [phone] Yossi Marina MD [address] [phone] 08/11/2024 8:00 AM EDT Appointment [facility] Neurodiagnostic [address] [place] [phone] 08/12/2024 9:00 AM EDT Appointment [facility] Neurodiagnostic [address] [place] [address] 08/13/2024 9:00 AM EDT Appointment [facility] Neurodiagnostic [address] [place] [address] 08/14/2024 9:00 AM EDT Appointment [facility] Neurodiagnostic [address] [place] [phone] documented as of this encounter Visit Diagnoses Diagnosis Unspecified abnormalities of gait and mobility documented in this encounter Orders Neurology Count Last Ordered Date First Orde red Date CONTINUOUS EEG 1 05/13/2024 documented in this encounter
--- OUTSIDE RECORDS SUMMARY | 2024-05-30 12:10 | XMS_ITS | Encounter Summary ---
Author Organization [facility] Address [address] [place] [address] Care Team Providers Care Color Paste Mixing Supervisor Name Role Phone Unavailable Primary Care Provider Unavailabl e Encounter Details Date Type Department Care Team (Late st Contact Info) Description 05/13/[address] [facility] Neurodiagnostic [address] [place] [phone] Rocío Watkins, MARYELLEN [address] [place] [address] [place] [address] Unspecified abnormalities of gait and mobility Social [...] 07/31/2024 10:00 AM EDT Office Visit [facility] [address] [phone] Yossi Marina MD [address] [phone] 08/11/2024 8:[address] [facility] Neurodiagnostic [address] [place] [phone] 08/12/2024 9:[address] [facility] Neurodiagnostic [address] [place] [address] 08/13/2024 9:[address] [facility] Neurodiagnostic [address] [place] [phone] 08/14/2024 9:[address] [facility] Neurodiagnostic [address] [place] [phone] documented as of this encounter Visit Diagnoses Diagnosis Unspecified abnormalities of gait and mobility documented in this encounter Orders Neurology Count Last Ordered Date First Orde red Date CONTINUOUS EEG 1 05/13/2024 documented in this encounter
--- OUTSIDE RECORDS SUMMARY | 2024-05-30 12:10 | XMS_ITS | Encounter Summary ---
Author Organization [facility] Address [address] [place] [address] Care Team Providers Care Data Processing Control Clerk Name Role Phone Unavailable Primary Care Provider Unavailabl e Encounter Details Date Type Department Care Team (Late Contact Info) Description 05/12/2024 Lab [facility] Neurodiagnostic [address] [place] [phone] Rocío Watkins, MARYELLEN [address] [place] [address] [place] [address] Unspecified abnormalities of gait and mobility Social [...] Description 07/31/2024 10:00 AM EDT Office Visit [facility] [address] [phone] Yossi Marina MD [address] [phone] 08/11/2024 8:00 AM EDT Appointment [facility] Neurodiagnostic [address] [place] [phone] 08/12/2024 9:00 AM EDT Appointment [facility] Neurodiagnostic [address] [place] [address] 08/13/2024 9:00 AM EDT Appointment [facility] Neurodiagnostic [address] [place] [address] 08/14/2024 9:00 AM EDT Appointment [facility] Neurodiagnostic [address] [place] [phone] documented as of this encounter Visit Diagnoses Diagnosis Unspecified abnormalities of gait and mobility documented in this encounter Orders Neurology Count Last Ordered Date First Orde red Date CONTINUOUS EEG 1 05/09/2024 documented in this encounter
== END 2024-05-30 11:54 | disposition home or self-care (01) ==
PROVIDERS: PCP Student in an Organized Health Care Education/Training Program; Visit Provider Nurse Practitioner Family
DX: N30.10 Interstitial cystitis (chronic) without hematuria (principal); K21.9 Gastro-esophageal reflux disease without esophagitis; K52.9 Noninfective gastroenteritis and colitis, unspecified; R14.0 Abdominal distension (gaseous); R74.01 Elevation of levels of liver transaminase levels
CPT/HCPCS: 99214; G2211

== ENCOUNTER 2024-05-30 10:38 | Outpatient (REF) | payer MEDICAID, SELFPAY ==
[2024-05-30 12:51] LABS: Estimated Average Glucose 105 mg/dL; Hemoglobin A1c % 5.3 % (<6.0)
[2024-05-30 13:15] LABS: Gamma Glutamyl Transpeptidase 89 U/L (7-33); Iron 47 mcg/dL (30-160); Lipase 16 U/L (8-78); Percent Iron Saturation 18 % (15-50); Total Iron Binding Capacity 259 mcg/dL (228-428); Unsaturated Iron Binding 212 ug/dL
[2024-05-30 13:33] LABS: Ferritin 152 ng/mL (10-250)
--- OUTSIDE RECORDS SUMMARY | 2024-05-30 14:18 | XMS_ITS | Encounter Summary ---
Author Organization [facility] Address [address] [place] [address] Care Team Providers Care Elementary Education Tutor Name Role Phone Unavailable Primary Care Provider Unavailabl e Encounter Details Date Type Department Care Team (Late st Contact Info) Description 05/13/2024 Lab [facility] Neurodiagnostic [address] [place] [phone] Rocío Watkins, MARYELLEN [address] [place] [address] [place] [address] Unspecified abnormalities of gait and mobility Social [...] Description 07/31/2024 10:00 AM EDT Office Visit [facility] [address] [phone] Yossi Marina MD [address] [phone] 08/11/2024 8:00 AM EDT Appointment [facility] Neurodiagnostic [address] [place] [phone] 08/12/2024 9:00 AM EDT Appointment [facility] Neurodiagnostic [address] [place] [address] 08/13/2024 9:00 AM EDT Appointment [facility] Neurodiagnostic [address] [place] [address] 08/14/2024 9:00 AM EDT Appointment [facility] Neurodiagnostic [address] [place] [phone] documented as of this encounter Visit Diagnoses Diagnosis Unspecified abnormalities of gait and mobility documented in this encounter Orders Neurology Count Last Ordered Date First Orde red Date CONTINUOUS EEG 1 05/13/2024 documented in this encounter
--- OUTSIDE RECORDS SUMMARY | 2024-05-30 14:18 | XMS_ITS | Encounter Summary ---
Author Organization [facility] Address [address] [place] [address] Care Team Providers Care Twill Cutter Name Role Phone Unavailable Primary Care Provider Unavailabl e Encounter Details Date Type Department Care Team (Late st Contact Info) Description 05/14/2024 Lab [facility] Neurodiagnostic [address] [place] [phone] Rocío Watkins, MARYELLEN [address] [place] [address] [place] [address] Unspecified abnormalities of gait and mobility Social [...] Description 07/31/2024 10:00 AM EDT Office Visit [facility] [address] [phone] Yossi Marina MD [address] [phone] 08/11/2024 8:00 AM EDT Appointment [facility] Neurodiagnostic [address] [place] [phone] 08/12/2024 9:00 AM EDT Appointment [facility] Neurodiagnostic [address] [place] [address] 08/13/2024 9:00 AM EDT Appointment [facility] Neurodiagnostic [address] [place] [address] 08/14/2024 9:00 AM EDT Appointment [facility] Neurodiagnostic [address] [place] [phone] documented as of this encounter Visit Diagnoses Diagnosis Unspecified abnormalities of gait and mobility documented in this encounter Orders Neurology Count Last Ordered Date First Orde red Date CONTINUOUS EEG 1 05/13/2024 documented in this encounter
--- OUTSIDE RECORDS SUMMARY | 2024-05-30 14:18 | XMS_ITS | Encounter Summary ---
Author Organization [facility] Address [address] [place] [address] Care Team Providers Care Vice President Network Development Name Role Phone Unavailable Primary Care Provider Unavailabl e Encounter Details Date Type Department Care Team (Late st Contact Info) Description 05/09/2024 Lab [facility] Neurodiagnostic [address] [place] [phone] Rocío Watkins, MARYELLEN [address] [place] [address] [place] [address] Unspecified abnormalities of gait and mobility Social [...] Description 07/31/2024 10:00 AM EDT Office Visit [facility] [address] [phone] Yossi Marina MD [address] [phone] 08/11/2024 8:00 AM EDT Appointment [facility] Neurodiagnostic [address] [place] [phone] 08/12/2024 9:00 AM EDT Appointment [facility] Neurodiagnostic [address] [place] [address] 08/13/2024 9:00 AM EDT Appointment [facility] Neurodiagnostic [address] [place] [address] 08/14/2024 9:00 AM EDT Appointment [facility] Neurodiagnostic [address] [place] [phone] documented as of this encounter Visit Diagnoses Diagnosis Unspecified abnormalities of gait and mobility documented in this encounter Orders Neurology Count Last Ordered Date First Orde red Date CONTINUOUS EEG 1 05/09/2024 documented in this encounter
--- OUTSIDE RECORDS SUMMARY | 2024-05-30 14:18 | XMS_ITS | Clinical Summary ---
Author Organization 175 [facility] Address [address] [place] [address] Phone Care Team Providers Care Medical Esthetician Name Role Phone Unavailable Primary Care Provider [...] Date Type Department Care Team Description 05/14/2024 [facility] Neurodiagnostic [address] [place] [phone] Rocío Watkins L, PA Unspecified abnormalities of gait and mobility 05/13/2024 [facility] Neurodiagnostic [address] [place] [phone] TeeteeiRocío L, PA Unspecified abnormalities of gait and mobility 05/12/2024 [facility] Neurodiagnostic [address] [place] [phone] PanewaiEneiday L, PA Unspecified abnormalities of gait and mobility 05/09/2024 [facility] Neurodiagnostic [address] [place] [phone] Panewai, Rocío L, PA Unspecified abnormalities of gait and mobility 05/05/2024 11:00 AM EST Office Visit [facility] 175 [facility] [address] [place] [phone] TeeteeiRocío L, PA Gait abnormality (Primary Dx) from Last 3 Months Immunizations Name Administration Dates Next Due Tdap Tetanus diptheria acell ular pertussis (Boostrix; Adacel) 7yo and older 05/04/2023 Surgical History Surgery Date Site/Laterality Comments CHOLECYSTECTOMY PROCEDURE: DE LAPAROSCOPY SURG CHOLECYSTECTOMY HYSTERECTOMY 2015 PROCEDURE: HISTORICAL HYSTERECTOMY THERAPEUTIC PROCEDURE:THERAPEUTIC APPENDECTOMY PROCEDURE:APPENDECTOMY TONSILLECTOMY PROCEDURE:TONSILLECTOMY HYSTERECTOMY PROCEDURE:HYSTERECTOMY CHOLECYSTECTOMY PROCEDURE:CHOLECYSTECTOMY LUMBAR PUNCTURE PROCEDURE:LUMBAR PUNCTURE BLADDER SURGERY PROCEDURE:BLADDER SURGERY Medical History Medical History Date Comments Migraine headache DX:Migraine he adache HSV-2 (herpes simplex virus 2) infection DX:HSV-2 (herpes simplex virus 2) infection PTSD (post-traumatic stress disorder) DX:PTSD (post-traumatic stress disorder) Suicide and self-inflicted i njury ([facility]) DX:Suicide and self-inflicte d injury ([facility]) Major depression, chronic DX:Percy or depression, chronic [...] Description 07/31/2024 10:00 AM EDT Office Visit [facility] 175 [facility] [address] [place] [address] Yossi Marina MD 175 [facility] [address] [place] [phone] 08/11/2024 8:00 AM EDT Appointment [facility] Neurodiagnostic [address] [place] [address] 08/12/2024 9:00 AM EDT Appointment [facility] Neurodiagnostic [address] [place] [address] 08/13/2024 9:00 AM EDT Appointment [facility] Neurodiagnostic [address] [place] [address] 08/14/2024 9:00 AM EDT Appointment [facility] Neurodiagnostic [address] [place] [phone] Health Maintenance Due Date Last Done Comments [...] Associated Diagnosis Comments DEPRESSION SCREENING Routine 05/04/2023 [facility] SCREENING DIGITAL Routine 06/05/2022 11:27 AM EST Encounter for screening mammogram for malignant neoplasm of breast HEPATITIS C SCREENING Routine 03/06/2022 LIPID PANEL Routine 03/06/2022 from Last 3 Months or Most Recently Relevant to Health Maintenance Results * Depression Screening (05/04/2023) Depression Screening Abstracted Historical Provider HEALTH MAINTENANCE Final Result * [facility] SCREENING DIGITAL (06/05/2022 11:27 AM EST) Anatomical Region Laterality Modality Mammography 06/05/2022 8:32 AM EST Narrative 06/05/2022 11:27 AM EST [facility] Diagnostic Imaging Department [address] [place] [address] Patient: ??PAULA JULES ?/Age/Sex: 1980 - - Unit#: ??[id number] ? Location/Status: ??SPDIMAM/REG CLI ? Mnemonic/Ordering Site: ??DIGSC/SPMAM Ordering Physician: ??VIDAL GARY DO Tay Screening Digital - 06/05/22 - 854 EXAM: [facility] Screening Digital EXAM DATE AND TIME: 06/05/2022 8:56 AM HISTORY: ??Screening. Baseline exam. Maternal grandmother had breast carcinoma. COMPARISON: ??No comparison imaging. TECHNIQUE: CC and MLO views of both breasts were obtained using full field digital mammography. Bilateral digital breast tomosynthesis was performed in the MLO projection. Computer aided detection with [employer] 7.2-H and [employer] 3D 3.1 was employed. TISSUE DENSITY: b. [...] Routine screening mammogram BILATERAL in 1 year. [address], [address]345 3341F, 7025F Dictating Physician: ??KIYA MYLES MD Electronically Signed by: ??KIYA MYLES MD Dic Date/Time: ??06/05/22 1126 Sign date/Time: ??06/05/22 1127 Procedure Note Kiya Myles MD - 05/04/2023 [facility] Diagnostic Imaging Department [address] [place] [id number] Patient: PAULA JULES /Age/Sex: 1980 - 41 - F Unit#: [id number] Location/Status: SPDIMAM/REG CLI Mnemonic/Ordering Site: [facility] Ordering Physician: VIDAL GAYR DO Tay Screening Digital - 06/05/22 - 854 EXAM: [facility] Screening Digital EXAM DATE AND TIME: 06/05/2022 8:56 AM HISTORY: Screening. Baseline exam. Maternal grandmother had breastcarcinoma. COMPARISON: No comparison imaging. TECHNIQUE: CC and MLO views of both breasts were obtained using fullfield digital mammography. Bilateral digital breast tomosynthesis was performedin the MLO projection. Computer aided detection with [employer] 7.2-H and[employer] 3D 3.1 was employed. TISSUE DENSITY: b. [...] Routine screening mammogram BILATERAL in 1 year. [address]308, 92232 3341F, 7025F Dictating Physician: KIYA MYLES MD [...] to Health Maintenance Insurance MEDICAID - [place] [facility]
--- OUTSIDE RECORDS SUMMARY | 2024-05-30 14:18 | XMS_ITS | Encounter Summary ---
Author Organization [facility] Address [address] [place] [address] Care Team Providers Care Diamond Finishing Supervisor Name Role Phone Unavailable Primary Care Provider Unavailabl e Encounter Details Date Type Department Care Team (Late Contact Info) Description 05/12/2024 [facility] Neurodiagnostic [address] [place] [phone] Rocío Watkins, MARYELLEN [address] [place] [address] [place] [address] Unspecified abnormalities of gait and mobility Social [...] Description 07/31/2024 10:00 AM EDT Office Visit [facility] [address] [phone] Yossi Marina MD [address] [phone] 08/11/2024 8:00 AM EDT Appointment [facility] Neurodiagnostic [address] [place] [phone] 08/12/2024 9:00 AM EDT Appointment [facility] Neurodiagnostic [address] [place] [address] 08/13/2024 9:00 AM EDT Appointment [facility] Neurodiagnostic [address] [place] [address] 08/14/2024 9:00 AM EDT Appointment [facility] Neurodiagnostic [address] [place] [phone] documented as of this encounter Visit Diagnoses Diagnosis Unspecified abnormalities of gait and mobility documented in this encounter Orders Neurology Count Last Ordered Date First Orde red Date CONTINUOUS EEG 1 05/09/2024 documented in this encounter
--- OUTSIDE RECORDS SUMMARY | 2024-05-30 14:18 | XMS_ITS | Clinical Summary ---
Author Organization [facility] Address [address] [place] [address] Care Team Providers Care Gas Operations Superintendent Name Role Phone Nori Posey MD Primary Care Provider [phone] Allergies Active Allergy Reactions Criticality Noted Date Comments [place] 08/30/2023 Medications Medication Sig Dispensed Refills Start [...] age to complete this topic Care Teams Gas Operations Superintendent Relationship Specialty Start Date End Date Nori Posey MD [address] [place] [id number] PCP - General Internal Medicine 08/01/23
--- OUTSIDE RECORDS SUMMARY | 2024-05-30 14:18 | XMS_ITS | Encounter Summary ---
Author Organization [facility] Address [address] [place] [address] Care Team Providers Care Insulation Foreman Name Role Phone Nori Posey MD Primary Care Provider [phone] Encounter Details Date Type Department Care Team (Late st Contact Info) Description 01/02/2024 10:45 AM EDT Hospital Encounter TH HISTORIC ENCOUNTERS [facility] ONLY Yossi Marina MD [address] [place] [phone] Social History Tobacco Use Types Packs/Day Years [...] home since Sunday. Still has a black [place] in visual field of L eye. Still [...] ambulation ?? 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 The majority of the actual hktb-fd-wxar visit was spent counseling the patient with respect to the current neurological picture. Yossi Marina MD documented in this encounter Plan of Treatment Upcoming Encounters Date Type Department Care Team (Late st Contact Info) Description 07/31/2024 10:00 AM EDT Office Visit [facility] [address] [phone] Yossi Marina MD [address] [phone] 08/11/2024 8:00 AM EDT Appointment [facility] Neurodiagnostic [address] [place] [phone] 08/12/2024 9:00 AM EDT Appointment [facility] Neurodiagnostic [address] [place] [phone] 08/13/2024 9:00 AM EDT Appointment [facility] Neurodiagnostic [address] [place] [phone] 08/14/2024 9:00 AM EDT Appointment [facility] Neurodiagnostic [address] [place] [phone] documented as of this encounter Visit Diagnoses Not on filedocumented in this encounter Care Teams Insulation Foreman Relationship Specialty Start Date End Date Nori Posey MD [address] [place] [phone] PCP - General 01/30/23 04/22/24 documented as of this encounter
--- OUTSIDE RECORDS SUMMARY | 2024-05-30 14:18 | XMS_ITS | Encounter Summary ---
Author Organization [facility] Address [address] [place] [address] Care Team Providers Care Armhole Sewer Name Role Phone Unavailable Primary Care Provider Unavailabl e Reason for Referral * Consultation (Routine) - Authorized Specialty Diagnoses / Procedures Referred By Shanae escalera Referred To Contact Neurology Diagnoses Gait abnormality Rocío Watkins PA [address] [place] [address] [place] [address] Phone: tel: fax: Dedra Rios [address] [place] [address] Phone: tel: fax: Referral ID Status Reason Start Date Expiration Date Visits Requested Visits Authorized [id number] Authorized Specialty Services Required 05/05/2024 05/05/2025 1 1 Scheduling Instructions Please refer to general neurology at [facility] Encounter Details Date Type Department Care Team (Late st Contact Info) Description 05/05/2024 11:00 AM EST Office Visit [facility] [address] [place] [address] Rocío Watkins PA [address] [facility] [place] [address] Gait abnormality (Primary Dx) Social History Tobacco [...] not heard regarding general neuro consultation at [facility] for second opinion. 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 The majority of the actual kutw-yr-uncy visit was spent counseling the patient with respect to the current neurological picture. Rocío Watkins PA-C documented in this encounter Plan of Treatment Upcoming Encounters Date Type Department Care Team (Late st Contact Info) Description 07/31/2024 10:00 AM EDT Office Visit [facility] [address] [phone] Yossi Marina MD [address] [phone] 08/11/2024 8:00 AM EDT Appointment Neurodiagnostic [address] [place] [address] 08/12/2024 9:00 AM EDT Appointment Neurodiagnostic [address] [place] [address] 08/13/2024 9:00 AM EDT Appointment Neurodiagnostic [address] [place] [address] 08/14/2024 9:00 AM EDT Appointment Neurodiagnostic [address] [place] [phone] Scheduled Referrals Name Type Priority Associated Diagnoses [...]
[2024-05-30 16:02] LABS: CDiff Gene PCR NEGATIVE (Negative)
[2024-06-01 09:58] LABS: Adenovirus F 40/41 Not Detected (Not Detect.); Astrovirus Not Detected (Not Detect.); Campylobacter Not Detected (Not Detect.); Cryptosporidium Not Detected (Not Detect.); Cyclospora cayetanensis Not Detected (Not Detect.); E. coli EAEC Not Detected (Not Detect.); E. coli EPEC Not Detected (Not Detect.); E. coli ETEC Not Detected (Not Detect.); E. coli STEC Not Detected (Not Detect.); Entamoeba histolytica Not Detected (Not Detect.); Giardia lamblia Not Detected (Not Detect.); Norovirus GI/GII Not Detected (Not Detect.); Plesiomonas shigelloides Not Detected (Not Detect.); Rotavirus A Not Detected (Not Detect.); Salmonella Not Detected (Not Detect.); Sapovirus Not Detected (Not Detect.); Shigella sp./EIEC Not Detected (Not Detect.); Vibrio Not Detected (Not Detect.); Vibrio Cholerae Not Detected (Not Detect.); Yersinia enterocolitica Not Detected (Not Detect.)
[2024-06-02 08:14] LABS: Ceruloplasmin 39 mg/dL (14-48)
[2024-06-02 08:35] LABS: HBc Num1 0.08 S/CO (0.00-0.79); HBsAGNum1 0.36 S/CO (0.00-0.99); Hepatitis A Antibody IgM 0.14 Index (0-0.79); Hepatitis B Core Antibody Nonreactive (Nonreactive); Hepatitis B Surface Antigen Negative (Negative); ~HepC Num1 0.09 S/CO (0.00-0.79); ~Hepatitis A Antibody IgM Nonreactive (Nonreactive); ~Hepatitis B Surface Antibody NONREACTIVE (Nonreactive); ~Hepatitis C Antibody Nonreactive (Nonreactive)
[2024-06-02 12:53] LABS: Alpha Fetoprotein 1.3 ng/mL
[2024-06-03 13:39] LABS: Mitochondrial Antibodies NEGATIVE (NEGATIVE)
[2024-06-03 17:28] LABS: Fecal Fat Qualitative Normal (Normal)
[2024-06-04 07:37] LABS: Smooth Muscle Antibody <20 U (<20)
[2024-06-05 09:54] LABS: FIB-ALT 31 U/L (6-29); FIB-Alpha-2-Macroglobulin 191 mg/dL (106-279); FIB-Apolipoprotein A1 154 mg/dL (101-198); FIB-GGT 71 U/L (3-55); FIB-Haptoglobin 250 mg/dL (43-212); FIB-Total Bilirubin 0.3 mg/dL (0.2-1.2); Liver Fibrosis Score 0.09; Liver Fibrosis Stage F0; Nec Inflam Act Grade A0; Nec Inflam Act Score 0.12
== END 2024-05-30 10:39 | disposition home or self-care (01) ==
LOC: HO.LAB 10:38
PROVIDERS: PCP Student in an Organized Health Care Education/Training Program; Visit Provider Nurse Practitioner Family
DX: R79.89 Other specified abnormal findings of blood chemistry (principal); R10.9 Unspecified abdominal pain; R74.8 Abnormal levels of other serum enzymes; Z83.3 Family history of diabetes mellitus; D64.9 Anemia, unspecified; K76.0 Fatty (change of) liver, not elsewhere classified; N30.10 Interstitial cystitis (chronic) without hematuria; K21.9 Gastro-esophageal reflux disease without esophagitis; K52.9 Noninfective gastroenteritis and colitis, unspecified; R14.0 Abdominal distension (gaseous); R74.01 Elevation of levels of liver transaminase levels
CPT/HCPCS: 36415; 81596; 82105; 82390; 82705; 82728; 82977; 83036; 83540; 83690; 86015; 86381; 86704; 86706; 86709; 86803; 87177; 87209; 87340; 87493; 87507; 99212

== ENCOUNTER 2024-07-25 16:34 | Inpatient (IN) | payer OTHER, SELFPAY ==
--- NOTE | ~2024-07-25 | CT_ITS ---
CLINICAL HISTORY: Small bowel obstruction? constipation CT abdomen and pelvis with contrast Comparison: CT/SR - CT ABDOMEN PELVIS W IV CON - 05/21/24 15:29 EST Findings: No consolidation or effusion. The gallbladder is surgically absent. No biliary ductal dilatation. The liver, spleen, pancreas, adrenal glands and kidneys are unremarkable. No ureteral stones and no hydronephrosis or hydroureter. No bowel obstruction, pneumoperitoneum, or pneumatosis. Mild distention of the ascending and transverse colon. No transition point. Moderate stool in the ascending colon. Appendix not visualized. No free fluid. No adenopathy or loculated fluid collection. Uterus is surgically absent. Urinary bladder only mildly filled. No aneurysm of abdominal aorta. No acute fracture. IMPRESSION: 1. No acute findings. 2. Moderate stool in the ascending colon with mild distention of ascending and transverse colon with no evidence of obstruction. 3. Additional nonacute findings as described. This document has been electronically signed by: Andreina Sharp MD on 07/25/2024 21:17:20
--- NOTE | ~2024-07-25 | FL_ITS ---
EXAMINATION: XR BARIUM ENEMA CLINICAL INFORMATION: Sigmoid narrowing COMPARISON: None available. TECHNIQUE: A KUB was obtained. Subsequently the balloon inflated rectal catheter was inserted and a 50-50 diluted Gastrografin was injected retrogradely under fluoroscopy until it reached the cecum. FINDINGS: On KUB there is a large amount of stool and gas seen throughout the colon and small bowel loops. No organomegaly seen. Following retrograde administration of dilute Gastrografin there is normal flow through the rectum, sigmoid colon and the descending colon. Large amount of stool is seen in proximal ascending colon and transverse colon. There is slow retrograde flow seen through the transverse colon into the cecum with complete opacification of cecum. No reflux visualized into the terminal ileum. Appendix was not seen. No intraluminal filling defects seen. There is a constricting eccentric lesion in the proximal sigmoid colon on the oblique view highly suspicious underlying lesion. On postevacuation images, most of the Gastrografin in transverse and ascending colon is empty. There is mild to moderate contrast retention in the right colon. FLUOROSCOPY TIME: 1 minute 39 seconds DOSE AREA PRODUCT: 6859 uGy-m2 (microgray-meter squared) FL/FL enema w gastrografin IMPRESSION: There is a distended colon with gas on a [employer] professional [employer] exam. There is scattered stool in the proximal descending colon. There is normal retrograde opacification of entire colon extending to cecum with diluted Gastrografin. There is a proximal sigmoid colon partially constrictive lesion seen on several images. Findings are suspicious for underlying lesion. Correlate with colonoscopy findings Electronically signed by: Vladimir Riley MD 07/31/2024 01:34 PM EDT
--- NOTE | ~2024-07-25 | XR_ITS ---
CLINICAL HISTORY: ffup for colon distension 1 view abdomen Comparison: CT - CT ABDOMEN PELVIS W IV CON - 07/25/24 20:[address]/SR - CT ABDOMEN PELVIS W IV CON - 07/25/24 19:59 EDT CR - XR KUB - 07/25/24 17:11 EDT Findings: Persistent colonic dilation containing gas and stool. No definite free air although evaluation limited on supine view. No abnormal calcifications. No acute fractures. IMPRESSION: Similar pattern of distended colon containing gas and stool. This document has been electronically signed by: Speedy Martinez MD on 07/26/2024 10:34:49
--- NOTE | ~2024-07-25 | XR_ITS ---
CLINICAL HISTORY: constipation ?obstruction 1 view abdomen Comparison: None Findings: Moderate stool in ascending and sigmoid colon. Colonic distention with mild air in the rectum. No abnormal calcifications. Right upper quadrant surgical clips. Lung bases are clear. No acute fractures. IMPRESSION: 1. Moderate stool in ascending and sigmoid colon. Diffuse colonic distention which may represent ileus but if developing obstruction is suspected follow-up should be obtained. Also, limited but evaluation for pneumatosis on a supine view in if clinically indicated an upright view should be obtained. This document has been electronically signed by: Andreina Sharp MD on 07/25/2024 17:52:22
[2024-07-25 16:44] VITALS: BP 151/78; PULSE 117; RESP 16; TEMP 37.7; O2SAT 98; BMI 39.3
--- NOTE | 2024-07-25 16:46 | ED_ITS ---
HPI - General Adult General Chief complaint: Abdominal Pain Stated complaint: Abd Pain, Difficulty Breathing,TroubleUsingRestoom Time Seen by Provider: 07/25/24 17:10 Source: patient Mode of arrival: ambulatory Limitations: no limitations History of Present Illness ED Provider: Kali Salcido HPI narrative: 43-year-old female history of constipation, FND, and insteritial cystitis presents to the ED for constipation for the past 6 days. patient states also not able to past flatus. Patient denies any genitourinary symptoms. Patient was not able to receive her prescription for constipation due to pharmacy being out of stock. Related Data Home Medications ?Medication ?Instructions ?Recorded ?Confirmed lamotrigine 200 mg tablet 200 mg PO DAILY 01/02/23 07/25/24 valacyclovir 500 mg tablet 500 mg PO DAILY 01/02/23 07/25/24 vortioxetine 20 mg tablet 20 mg PO DAILY 01/02/23 07/25/24 (Trintellix) clonazepam 1 mg tablet 1 mg PO TID 01/08/24 07/25/24 famotidine 20 mg tablet 20 mg PO BID 01/08/24 07/25/24 hydroxyzine HCl 25 mg tablet 25 mg PO BEDTIME 01/08/24 07/25/24 lamotrigine 25 mg tablet 50 mg PO BEDTIME 01/08/24 07/25/24 tamsulosin 0.4 mg capsule 0.4 mg PO DAILY 01/08/24 07/25/24 eszopiclone 3 mg tablet 3 mg PO BEDTIME 05/30/24 07/25/24 bisacodyl 5 mg tablet,delayed 10 mg PO DAILY 07/25/24 07/25/24 release esomeprazole magnesium 40 mg 40 mg PO DAILY 07/25/24 07/25/24 capsule,delayed release (Nexium) fluticasone propionate 50 2 spray intranasal DAILY PRN 07/25/24 07/25/24 mcg/actuation nasal Allergy Symptoms spray,suspension magnesium oxide 400 mg PO DAILY 07/25/24 07/25/24 mirabegron 50 mg tablet,extended 50 mg PO DAILY 07/25/24 07/25/24 release 24 hr (Myrbetriq) Previous Rx's ?Medication ?Instructions ?Recorded cholecalciferol (vitamin D3) 125 125 mcg PO DAILY #90 caps 05/30/24 mcg (5,000 unit) capsule methylcellulose (laxative) 500 mg 500 mg PO DAILY #90 tabs 05/30/24 tablet (Citrucel) magnesium hydroxide 400 mg/5 mL 10 ml PO DAILY PRN constipation 07/25/24 oral suspension (Milk of Magnesia) #355 mL sennosides 8.6 mg tablet (Natural 17.2 mg (2 x 8.6 mg) PO BEDTIME 07/25/24 Senna Laxative) constipation #60 tabs Allergies Allergy/AdvReac Type Severity Reaction Status Date / Time propofol Allergy Intermediate Itching Verified 07/25/24 16:50 morphine Allergy Mild Itching Verified 07/25/24 16:50 Review of Systems 2 Review of Systems: constipation. not able to pass flatus Yes all other systems are reviewed and are negative [facility] Past Medical History Medical History Interstitial cystitis IBS (irritable bowel syndrome) Occipital neuralgia of right side History of colitis Gastric ulcer History of suicidal ideation Anxiety Agoraphobia MDD (major depressive disorder) PTSD (post-traumatic stress disorder) Surgical History H/O: hysterectomy Hx of cholecystectomy (~12/2022) Family History Family History Father Prostate cancer Maternal Uncle Colon cancer Maternal Grandmother Breast cancer Social History Social History Household Members: Spouse, Family and Children Housing: House Do you presently have visiting nurse or other home services: Yes ([employer] to help with ADLs) Comment: unknown at time report written Patient Tobacco Use Status: Never used Tobacco service: No Physical Exam ED Vital Signs: Vital Signs - 24 hr 07/25/24 22:53 Pulse Rate 84 Respiratory Rate 15 Blood Pressure 113/69 Pulse Oximetry 100 Oxygen Delivery Method Room Air BMI result Body Mass Index 39.3 Const General: cooperative, healthy appearing, comfortable, no acute distress, well developed, alert, awake and Physically active Orientation/consciousness: patient oriented x3 HENMT Head: Yes normal to inspection, Yes No palpable skull fracture present, Yes normocephalic and Yes atraumatic Eyes General: appearance normal, both eyes and all related structures Neck Neck: Yes normal visual inspection, Yes full ROM, Yes no lymphadenopathy, Yes no meningeal signs, Yes trachea midline, Yes supple, No anterior neck swelling and No tender Chest Chest palpation & inspection: normal inspection of the chest and normal palpation of entire chest wall Resp Effort & Inspection: normal respiratory effort Auscultation: clear to auscultation bilaterally Cardio Jugular venous distension: no JVD Heart sounds: S1 normal heart sound present and S2 normal heart sound present GI Inspection: Yes normal to inspection and Yes distended Palpation (GI): Soft to palpation, not firm, Tenderness to palpation present (GI) (generalized), no guarding and not rigid General: Yes no CVA tenderness Back/Spine/Pelvis Back: no CVA tenderness and No back tenderness Skin General skin exam: no rashes or lesions noted, elasticity normal and turgor normal Neuro General: patient oriented x3, gait normal, tone normal, moves all extremities, Normal light touch and pain sensation, no meningeal signs, no focal motor deficits, CN's II-XI intact bilaterally and normal sensation to monofilament Extrem General: Yes normal to inspection, Yes full ROM and Yes capillary refill normal Psych Appearance: grossly normal, well kempt and not disheveled Course Course Course Narrative: This is a Rapid Medical Examination (RME) performed by Clifton Sumner PA-C in triage. Full HPI, ROS, assessment and treatment plan per primary provider in the Main ED. Hx: 43 yo female hx IBS here for eval of abd bloating/pain and constipation. no bm x6 days, abd bloating for about 3 days. cannot recall the last time she passed flatus. reports pain with breathing d/t abdominal distension. nausea w/o vomiting. abd pain worse w/ eating. surgical hx: Hysterectomy, cholecystectomy, appendectomy PE/vitals: patient appears very uncomfortable. abdomen soft however very distended, hypoactive bs Plan: labs, UA, KUB Medications Administered Generic Name Dose Route Start Last Admin Trade Name Freq PRN Reason Stop Dose Admin Clonazepam 1 mg 07/25/24 23:30 07/26/24 21:11 Clonazepam 1 Mg Tablet PO 1 mg TID MARIAH Administration Famotidine 20 mg 07/25/24 23:30 07/26/24 21:11 Famotidine 20 Mg Tablet PO 20 mg BID MARIAH Administration Fluticasone Propionate 2 spray 07/25/24 23:14 07/26/24 08:31 Fluticasone Propionate Nasal 16 Gm [place] NOSTRIL-B 2 spray DAILY PRN Administration Allergy Symptoms Hydrocortisone 1 appl 07/26/24 21:00 07/26/24 21:12 Hydrocortisone 2.5 % Rectal Cr 30 Gm Tube [place] 1 appl BID MARIAH Administration Hydromorphone HCl 0.5 mg 07/25/24 23:10 07/26/24 22:00 Hydromorphone Hcl 1 Mg/Ml Syringe IVPUSH 0.5 mg Q4H PRN Administration Pain, Severe (Pain Scale 7-10) Protocol Hydroxyzine HCl 25 mg 07/26/24 23:30 07/26/24 22:08 Hydroxyzine Hcl 25 Mg Tablet PO 25 mg BEDTIME MARIAH Administration Lactated Ringer's 1,000 mls @ 80 mls/hr 07/26/24 18:15 07/26/24 18:24 Lr IVCONT 80 mls/hr .[id number] MARIAH Administration Ketorolac Tromethamine 30 mg 07/25/24 23:10 07/26/24 13:06 Ketorolac Tromethamine 30 Mg/Ml Vial IVPUSH 07/30/24 23:09 30 mg Q6H PRN Administration Pain, Moderate(Pain Scale 4-6) Lamotrigine 200 mg 07/26/24 09:00 07/26/24 08:31 Lamotrigine 100 Mg Tablet PO 200 mg DAILY MARIAH Administration Lamotrigine 50 mg 07/25/24 23:30 07/26/24 21:11 Lamotrigine 25 Mg Tablet PO 50 mg BEDTIME MARIAH Administration Mirabegron 50 mg 07/26/24 09:00 07/26/24 09:33 Mirabegron 50 Mg Tab.Er.24h PO 50 mg DAILY MARIAH Administration Omeprazole 20 mg 07/26/24 06:30 07/26/24 04:51 Omeprazole 20 Mg Capsule.Dr PO Not Given DAILY@0630 MARIAH Ondansetron HCl 4 mg 07/25/24 23:10 07/26/24 09:33 Ondansetron Hcl 4 Mg/2 Ml Vial IVPUSH 4 mg Q8H PRN Administration Nausea and Vomiting Sodium Chloride 3 ml 07/26/24 00:00 07/26/24 22:11 0.9 % Sodium Chloride Flush 3 Ml Syringe IVFLUSH Not Given QSHIFT MARIAH Tamsulosin HCl 0.4 mg 07/26/24 09:00 07/26/24 08:32 Tamsulosin Hcl 0.4 Mg Capsule PO 0.4 mg DAILY MARIAH Administration Valacyclovir HCl 500 mg 07/26/24 09:00 07/26/24 08:31 Valacyclovir Hcl 500 Mg Tablet PO 500 mg DAILY MARIAH Administration Vitamin D 125 mcg 07/26/24 09:00 07/26/24 08:32 Cholecalciferol (Vitamin D3) 25 Mcg Tablet PO 125 mcg DAILY MARIAH Administration Vortioxetine 20 mg 07/26/24 09:00 07/26/24 09:33 Vortioxetine Hydrobromide 20 Mg Tablet PO 20 mg DAILY MARIAH Administration Discontinued Medications Generic Name Dose Route Start Last Admin Trade Name Freq PRN Reason Stop Dose Admin Bisacodyl 10 mg 07/26/24 09:00 07/26/24 08:31 Bisacodyl 5 Mg Tablet.Dr PO 10 mg DAILY MARIAH Administration Diphenhydramine HCl 25 mg 07/25/24 19:31 07/25/24 19:37 Diphenhydramine Hcl 50 Mg/Ml Vial IVPUSH 07/25/24 19:32 25 mg ONCE ONE Administration Diphenhydramine HCl 25 mg 07/25/24 21:19 07/25/24 21:30 Diphenhydramine Hcl 50 Mg/Ml Vial IVPUSH 07/25/24 21:20 25 mg ONCE ONE Administration Sodium Chloride 1,000 mls @ 999 mls/hr 07/25/24 23:00 07/26/24 02:22 Ns IV 07/26/24 00:00 Infused .Q1H1M MARIAH Infusion Iohexol 100 ml 07/25/24 20:16 07/25/24 20:16 Iohexol 350 Mg/Ml 100 Ml Infus..Btl IV 07/25/24 20:17 100 ml ONCE ONE Administration Magnesium Citrate 300 ml 07/25/24 21:22 07/25/24 21:30 Magnesium Citrate 300 Ml Solution PO 07/25/24 21:23 300 ml ONCE ONE Administration Magnesium Oxide 400 mg 07/26/24 09:00 07/26/24 08:31 Magnesium Oxide 400 Mg Tablet PO 400 mg DAILY MARIAH Administration Morphine Sulfate 4 mg 07/25/24 19:31 07/25/24 19:37 Morphine Sulfate 4 Mg/Ml Cartridge IVPUSH 07/25/24 19:32 4 mg ONCE ONE Administration Protocol Morphine Sulfate 4 mg 07/25/24 21:19 07/25/24 21:29 Morphine Sulfate 4 Mg/Ml Cartridge IVPUSH 07/25/24 21:20 4 mg ONCE ONE Administration Protocol Psyllium Hydrophilic Mucilloid 3.7 gm 07/26/24 09:00 07/26/24 09:43 Psyllium Seed 3.7 Gm Packet PO Not Given DAILY MARIAH Senna 17.2 mg 07/25/24 23:30 07/26/24 00:19 Sennosides 8.6 Mg Tablet PO 17.2 mg BEDTIME MARIAH Administration Medical Decision Making Medical Decision Making [facility] Narrative: [age] year female presents to ED for abdominal pain, constipation for 6 days and not able to pass flatus. Initial labs EKG x-ray ordered. We will send for CT scan to rule out small bowel obstruction. 8:58pm: Patient was evaluated by Dr. Allen of surgery recommended patient get an urgent CT scan. He reviewed CAT scan and does not believe she has a small bowel obstruction, but he states if the CAT scan came back negative for small bowel obstructiong patient be admitted to medicine for colonoscopy for severe constipation and pain control. Patient is in severe pain patient given morphine with Benadryl. Patient given Toradol of 8 mg of morphine 50 of Benadryl. Patient is accepted by Dr. Chatman for admission for abdominal pain and and severe constipation. Differential Diagnosis Differential Diagnoses: The differential diagnosis associated with the presentation includes (Small-bowel obstruction, severe constipation, colitis) Admission/Observation Consideration of admission/observation: Escalation of care including admission/observation considered Consult Healthcare Provider Management of the patient was discussed with: Post Doctoral Researcher (Dr. Allen surgery) Lab Data [facility] Lab Attestation statement: I reviewed the patient's lab results. 07/26/24 05:56 07/26/24 05:56 Labs: Lab Results 07/25/24 07/25/24 Range/Units 17:46 19:39 WBC 7.7 (4.8-10.8) X10*3/uL RBC 4.87 (4.20-5.50) X10*6/uL Hgb 13.4 (12.0-16.0) g/dl Hct 39.7 (37.0-47.0) % MCV 81.5 (80.0-98.0) fL MCH 27.5 (27.0-33.0) pg MCHC 33.8 (31.0-35.0) g/dl RDW 14.1 (11.0-16.0) % Plt Count 458 H (160-400) X10*3/uL MPV 9.6 (9.4-12.3) fL Immature Gran % (Auto) 0.4 (0.0-0.4) % Neut % (Auto) 58.9 (45-73) % Lymph % (Auto) 31.7 (20-40) % [place] % (Auto) 7.1 (2-11) % Eos % (Auto) 1.6 (0-4) % Baso % (Auto) 0.3 (0-2) % Lymph # (Auto) 2.4 (1.2-4.9) X10*3/uL [place] # (Auto) 0.6 (0.1-1.2) X10*3/uL Eos # (Auto) 0.1 (0.0-0.4) X10*3/uL Baso # (Auto) 0.0 (0.0-0.2) X10*3/uL Abs Immat Gran (auto) 0.03 (0.00-0.03) X10*3/uL Absolute Neuts (auto) 4.5 (2.0-8.3) x10*3/uL Absolute Nucleated RBC 0.000 (0.0-0.012) X10*3/uL Nucleated RBC % (auto) 0.0 (0.0-0.2) /100WBC Sodium 137 (135-145) mmol/L Potassium 4.5 (3.3-5.1) mmol/L Chloride 104 (96-108) mmol/L Carbon Dioxide 26 (22-29) mmol/L Anion Gap 12 (12-20) BUN 10 (9-16) mg/dL Creatinine 0.85 (0.5-1.4) mg/dL Estim Creat Clear Calc 101.2 Estimated GFR > 60 Random Glucose 103 (60-115) mg/dL Calcium 9.3 (8.4-10.2) mg/dL Magnesium 2.1 (1.6-2.6) mg/dL Total Bilirubin 0.2 (0.0-1.0) mg/dL AST 20 (5-31) U/L ALT 18 (0-31) U/L Alkaline Phosphatase 134 H (39-117) U/L Troponin I High Sens < 2.7 (<3.5-17.0) ng/L Total Protein 7.6 (6.5-8.0) g/dL Albumin 4.0 (3.5-5.0) g/dL Lipase 11 (8-78) U/L Beta HCG, Quant < 2 mIU/mL Urine Color Yellow Urine Appearance Clear Urine pH 6.0 (5.0-9.0) Ur Specific [place] 1.010 (1.005-1.025) Urine Protein Negative (Neg-Trace) mg/dL Urine Glucose (UA) Negative (Negative) mg/dL Urine Ketones Negative (Negative) mg/dL Urine Blood Negative (Negative) Urine Nitrite Negative (Negative) Ur Leukocyte Esterase Negative (Negative) Independent Interpretation I performed an independent interpretation of an: Plain X-Ray Radiology Impression Discussion of test interpretation with radiology: I have reviewed the radiologist's reading. Independent Historian Clinical information obtained from an independent historian. History obtained from or confirmed by: Other (patient) Discharge Plan Discharge Clinical Impression: Irritable bowel syndrome Patient Disposition: Admitted As Inpatient Interventions: Admission Worksheet (ED) Last Done: 07/26/24 05:09 Discharge Date/Time: 07/26/24 09:19
--- NOTE | 2024-07-25 16:50 | ECG_ITS ---
Test Reason : TACHY Blood Pressure : */* mmHG Vent. Rate : 96 BPM Atrial Rate : 96 BPM P-R Int : 146 ms QRS Dur : 84 ms QT Int : 346 ms P-R-T Axes : 65 54 39 degrees QTcB Int : 437 ms Normal sinus rhythm Normal ECG When compared with ECG of 02-Jan-2023 20:46, No significant change was found Referred By: Jessica Sumner Electronically Signed By: YVES KLEIN
--- OUTSIDE RECORDS SUMMARY | 2024-07-25 17:27 | XMS_ITS | Clinical Summary ---
Author Organization [facility] Address [address] [place] [address] Care Team Providers Care Free Lance Model Name Role Phone Nori Posey MD Primary Care Provider [phone] Allergies Active Allergy Reactions Criticality Noted Date Comments [place] 08/30/2023 Medications Medication Sig Dispensed Refills Start [...] age to complete this topic Care Teams Free Lance Model Relationship Specialty Start Date End Date Nori Posey MD [address] [place] [id number] PCP - General Internal Medicine 08/01/23
--- OUTSIDE RECORDS SUMMARY | 2024-07-25 17:27 | XMS_ITS | Encounter Summary ---
Author Organization [facility] Address [address] [place] [address] Care Team Providers Care Measurer Machine Name Role Phone Nori Posey MD Primary Care Provider [phone] Encounter Details Date Type Department Care Team (Late st Contact Info) Description 01/02/2024 10:45 AM EDT Hospital Encounter TH HISTORIC ENCOUNTERS [facility] CONVERSION ONLY Yossi Marina MD [address] [place] [address] [phone] Social History Tobacco Use Types Packs/Day Years [...] home since Sunday. Still has a black [place] in visual field of L eye. Still [...] ambulation ?? 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 The majority of the actual [id number] visit was spent counseling the patient with respect to the current neurological picture. Yossi Marina MD documented in this encounter Plan of Treatment Upcoming Encounters Date Type Department Care Team (Late st Contact Info) Description 07/31/2024 9:40 AM EDT Office Visit [facility] [place] [facility] [place] [address] [phone] Yossi Marina MD [address] [phone] 08/11/2024 8:00 AM EDT Appointment [facility] [address] [place] [phone] 08/12/2024 9:00 AM EDT Appointment [facility] [address] [place] [phone] 08/13/2024 9:00 AM EDT Appointment [facility] [address] [place] [phone] 08/14/2024 9:00 AM EDT Appointment [facility] [address] [place] [phone] documented as of this encounter Visit Diagnoses Not on filedocumented in this encounter Care Teams Measurer Machine Relationship Specialty Start Date End Date Nori Posey MD PCP - General 01/30/23 04/22/24 documented as of this encounter
--- OUTSIDE RECORDS SUMMARY | 2024-07-25 17:27 | XMS_ITS | Clinical Summary ---
Author Organization [facility] Address [address] [place] [address] Phone Care Team Providers Care Old Testament Professor Name Role Phone Unavailable Primary Care Provider [...] MINUTES BEFORE A MEAL 90 tablet 3 025 Active esomeprazole (NexIUM) [address] [...] Activ e famotidine (PEPCID) 20 mg tablet TAKE 1 TABLET BY MOUTH TWICE A DAY 180 tablet 025 Active famotidine (PEPCID) 20 mg tablet Take 1 tablet (20 mg total) by mouth 2 (two) times a day. 180 tablet 025 2024 Discontinued Active Problems Problem Noted Date Diagnosed Date Agoraphobia with panic disorder 03/06/2022 Alopecia (capitis) totalis 03/06/2022 Body dysmorphic disorder 03/06/2022 History of suicidal behavior 03/06/2022 HSV-2 (herpes simplex virus 2) infection 022 Major depressive disorder 03/06/2022 Migraine 03/06/2022 Overview (03/03/2024): Amitryptilline daily PTSD (post-traumatic stress disorder) 03/06/2022 Encounters Date Type Department Care Team Description 05/14/2024 [facility] Neurodiagnostic [address] [place] [phone] Rocío Watkins PA Unspecified abnormalities of gait and mobility 05/13/2024 [facility] Neurodiagnostic [address] [place] [phone] Rocío Watkins PA Unspecified abnormalities of gait and mobility 05/12/2024 [facility] Neurodiagnostic [address] [place] [phone] Rocío Watkins PA Unspecified abnormalities of gait and mobility 05/09/2024 [facility] Neurodiagnostic [address] [place] [phone] Rocío Watkins PA Unspecified abnormalities of gait and mobility 05/05/2024 11:00 AM EST Office Visit [facility] [address] [facility] [address] [place] [phone] Rocío Watkins PA Gait abnormality (Primary Dx) from Last 3 Months Immunizations Name Administration Dates Next Due Tdap Tetanus diptheria acell ular pertussis (Boostrix; Adacel) 7yo and older 05/04/2023 Surgical History Surgery Date Site/Laterality Comments CHOLECYSTECTOMY PROCEDURE: CT LAPAROSCOPY SURG CHOLECYSTECTOMY HYSTERECTOMY 2015 PROCEDURE: HISTORICAL HYSTERECTOMY THERAPEUTIC PROCEDURE:THERAPEUTIC APPENDECTOMY PROCEDURE:APPENDECTOMY TONSILLECTOMY PROCEDURE:TONSILLECTOMY HYSTERECTOMY PROCEDURE:HYSTERECTOMY CHOLECYSTECTOMY PROCEDURE:CHOLECYSTECTOMY LUMBAR PUNCTURE PROCEDURE:LUMBAR PUNCTURE BLADDER SURGERY PROCEDURE:BLADDER SURGERY Medical History Medical History Date Comments Migraine headache DX:Migraine he adache HSV-2 (herpes simplex virus 2) infection DX:HSV-2 (herpes simplex virus 2) infection PTSD (post-traumatic stress disorder) DX:PTSD (post-traumatic stress disorder) Suicide and self-inflicted i njury ([facility] V24, [facility] V28) DX:Suicide and self-inflict ed injury ([facility]) Major depression, chronic DX:Percy or depression, [...] DX:Guaiac positive stools Hematuria DX:Hematuria Uterine cancer ([facility] V24, [facility] V28) 2014 DX:Uterine cancer ([facility]) Interstitial cystitis DX:Interst itial cystitis Herpes genitalis [...] Description 07/31/2024 9:40 AM EDT Office Visit [facility] [address] [phone] Yossi Marina MD [address] [phone] 08/11/2024 8:00 AM EDT Appointment [facility] Neurodiagnostic [address] [place] [phone] 08/12/2024 9:00 AM EDT Appointment [facility] Neurodiagnostic [address] [place] [phone] 08/13/2024 9:00 AM EDT Appointment [facility]diagnostic [address] [place] [phone] 08/14/2024 9:00 AM EDT Appointment [facility] Neurodiagn[facility] [address] [place] [phone] Health Maintenance Due Date Last Done Comments Hepatitis B Vaccines (1 of 3 - 19+ 3-dose series) 2000 Cervical Cancer Screening: P ap Smear 2002 COVID-19 Vaccine (3 - Modern a risk series) 01/03/2021 12/06/2020, 10/19/2020 HIV Screening 03/05/2022 Social Influencers of Health Screening 03/05/2022 Depression Screening 05/04/2024 05/04/2023 Breast Cancer Screening 06/05/2024 06/05/2022 Influenza Vaccine (Season Ended) 2024 04/30/2008, 06/13/2007 Cholesterol Screening (Lipid Panel) 03/06/2027 03/06/2022 DTaP,Tdap,and [...] age to complete this topic Meningococcal B Vaccine Aged Out No l onger eligible based on patient's age to complete [...] EST Narrative 06/05/2022 11:27 AM EST [facility] Diagnostic Imaging Department [address] [place], [place] [id number] Patient: ??PAULA JULES ?/Age/Sex: 1980 - 41 - F Unit#: ??[id number] ? Location/Status: ??SPDIMAM/REG CLI ? Mnemonic/Ordering Site: ??DIGSC/SPMAM Ordering Physician: ??VIDAL GARY DO Tay Screening Digital - 06/05/22854 EXAM: Tay Screening Digital EXAM DATE AND TIME: 06/05/2022 8:56 AM HISTORY: ??Screening. Baseline exam. Maternal grandmother had breast carcinoma. COMPARISON: ??No comparison imaging. TECHNIQUE: CC and MLO views of both breasts were obtained using full field digital mammography. Bilateral digital breast tomosynthesis was performed in the MLO projection. Computer aided detection with [employer] 7.2-H and [employer] SL 3D 3.1 was employed. TISSUE DENSITY: b. [...] Routine screening mammogram BILATERAL in 1 year. [id number], [id number] 3341F, 7025F Dictating Physician: ??KIYA MYLES MD Electronically Signed by: ??KIYA MYLES MD Dic Date/Time: ??06/05/22 1126 Sign date/Time: ??06/05/22 1127 Procedure Note Kiya Myles MD - 05/04/2023 [facility] Diagnostic Imaging Department [address] [place], [place] [id number] Patient: COY REDDPAULA /Age/Sex: 1980 - 41 - F Unit#: [id number] Location/Status: [facility]/REG CLI Mnemonic/Ordering Site: [facility] Ordering Physician: VIDAL GARY DO [facility] Screening Digital - 06/05/22 - 854 EXAM: [facility] Screening Digital EXAM DATE AND TIME: 06/05/2022 8:56 AM HISTORY: Screening. Baseline exam. Maternal grandmother had breastcarcinoma. COMPARISON: No comparison imaging. TECHNIQUE: CC and MLO views of both breasts were obtained using fullfield digital mammography. Bilateral digital breast tomosynthesis was performedin the MLO projection. Computer aided detection with [employer] 7.2-H and[employer] SL 3D 3.1 was employed. TISSUE DENSITY: b. [...] Routine screening mammogram BILATERAL in 1 year. [address]153, [id number] 3341F, 7025F Dictating Physician: KIYA MYLES MD Electronically Signed by: KIYA MYLES MD Dic Date/Time: 06/05/22 1126 Sign date/Time: 06/05/22 1127 Vidal Gary DO [facility] BI PROCEDURES Final Result * Hepatitis C [...] to Health Maintenance Insurance [place]ICAID - [place] [employer]
[2024-07-25 17:49] LABS: MANUAL DIFF FLAG NO
[2024-07-25 17:50] LABS: Basophils Percent Auto 0.3 % (0-2); Eosinophils Absolute Auto 0.1 X10*3/uL (0.0-0.4); Eosinophils Percent Auto 1.6 % (0-4); Hematocrit 39.7 % (37.0-47.0); Hemoglobin 13.4 g/dl (12.0-16.0); Imm Gran Abs Auto 0.03 X10*3/uL (0.00-0.03); Imm Gran Pct Auto 0.4 % (0.0-0.4); Lymphocytes Absolute Auto 2.4 X10*3/uL (1.2-4.9); Lymphocytes Percent Auto 31.7 % (20-40); Mean Corpuscular HGB Conc 33.8 g/dl (31.0-35.0); Mean Corpuscular Hemoglobin 27.5 pg (27.0-33.0); Mean Corpuscular Volume 81.5 fL (80.0-98.0); Mean Platelet Volume 9.6 fL (9.4-12.3); Monocytes Absolute Auto 0.6 X10*3/uL (0.1-1.2); Monocytes Percent Auto 7.1 % (2-11); Neutrophils Absolute Auto 4.5 x10*3/uL (2.0-8.3); Neutrophils Percent Auto 58.9 % (45-73); Platelet Count 458 X10*3/uL (160-400); Red Blood Count 4.87 X10*6/uL (4.20-5.50); Red Cell Distribution Width 14.1 % (11.0-16.0); White Blood Count 7.7 X10*3/uL (4.8-10.8)
[2024-07-25 18:05] LABS: Alanine Aminotransferase 18 U/L (0-31); Alkaline Phosphatase 134 U/L (39-117); Anion Gap 12 (12-20); Aspartate Amino Transferase 20 U/L (5-31); Bilirubin Total 0.2 mg/dL (0.0-1.0); Blood Urea Nitrogen 10 mg/dL (9-16); Calcium 9.3 mg/dL (8.4-10.2); Carbon Dioxide 26 mmol/L (22-29); Chloride 104 mmol/L (96-108); Creatinine Clr Calc Pharmacy 101.2; Estimated Glomerular Filt Rate > 60; Glucose Random 103 mg/dL (60-115); Lipase 11 U/L (8-78); Magnesium 2.1 mg/dL (1.6-2.6); Potassium 4.5 mmol/L (3.3-5.1); Sodium 137 mmol/L (135-145); Total Protein 7.6 g/dL (6.5-8.0)
[2024-07-25 18:07] VITALS: BP 135/72; PULSE 90; RESP 16; TEMP 37; O2SAT 98
[2024-07-25 18:13] LABS: HCG Quantitative < 2 mIU/mL; Troponin-I High Sensitivity < 2.7 ng/L (<3.5-17.0)
[2024-07-25 19:37] VITALS: RESP 20
[2024-07-25] MEDS: Morphine Sulfate 4 MG/ML CARTRIDGE IVPUSH ×2 (19:37→21:29)
[2024-07-25] MEDS: diphenhydrAMINE HCL 50 MG/ML VIAL 25 MG IVPUSH ×2 (19:37→21:30)
[2024-07-25 20:02] LABS: Appearance Urine Clear; Color Urine Yellow; Glucose Urine UA Negative (Negative); Leukocyte Esterase Urine Negative (Negative); Nitrite Urine Negative (Negative); Urine Blood Negative (Negative); Urine Ketones Negative (Negative); Urine Protein Negative (Neg-Trace)
[2024-07-25] MEDS: iohexoL 350 MG/ML 100 ML INFUS..BTL IV (20:16)
--- NOTE | 2024-07-25 20:22 | P.CONGS_ITS ---
History of Present Illness Consult details Consult date: 07/25/24 Narrative: 43 year female with right-sided occipital neuralgia, chronic interstitial cystitis, reflux symptoms, morbid obesity, and IBD, anxiety and depression, here in the ER because of abdominal pain and constipation She says that she has had no good bowel movement for about a week now. She says that she has had a long history of GI issues with chronic constipation in the past and diarrhea with multiple watery stools throughout the day for several years now She feels bloated for about a week. She has diffuse abdominal pain which she says is mostly on the right side. She has been followed by GI for many years now because of her chronic GI issues with reflux, BUN constipation. She says she was told she had IBS She had a colonoscopy about 2 years ago in [place] and she says that she was told she had ?ulcers in the colon. She denies any nausea or vomiting. Review of Systems 2 Constitutional: Constitutional: Denies chills and Denies fever(s) Cardiovascular: Cardiovascular: Denies chest pain, Denies dyspnea and Denies dyspnea on exertion Respiratory: Respiratory: Denies cough, Denies dyspnea and Denies dyspnea on exertion Gastrointestinal: Gastrointestinal: Denies hematochezia and Denies change in bowel habits Genitourinary: Genitourinary: Denies hematuria Musculoskeletal: Musculoskeletal: Denies back pain and Denies limited range of motion Neurologic: Denies focal weakness and Denies convulsions Psychiatric: Psychiatric: Reports anxiety, Reports depression and Reports mood swings PMFSH Past Medical History Medical History Interstitial cystitis IBS (irritable bowel syndrome) Occipital neuralgia of right side History of colitis Gastric ulcer History of suicidal ideation Anxiety Agoraphobia MDD (major depressive disorder) PTSD (post-traumatic stress disorder) Family History Family History Father Prostate cancer Maternal Uncle Colon cancer Maternal Grandmother Breast cancer Surgical History Surgical History H/O: hysterectomy Hx of cholecystectomy (~12/2022) Social History Social History Household Members: Spouse, Family and Children Housing: House Do you presently have visiting nurse or other home services: Yes ([employer] to help with ADLs) Comment: unknown at time report written Patient Tobacco Use Status: Never used Tobacco service: No Meds Allergies Allergy/AdvReac Type Severity Reaction Status Date / Time propofol Allergy Intermediate Itching Verified 07/25/24 16:50 morphine Allergy Mild Itching Verified 07/25/24 16:50 Home Medications ?Medication ?Instructions ?Recorded ?Confirmed ?Last Taken ?Type lamotrigine 200 mg tablet 200 mg PO DAILY 01/02/23 07/25/24 07/25/24 History valacyclovir 500 mg tablet 500 mg PO DAILY 01/02/23 07/25/24 07/25/24 History vortioxetine 20 mg tablet 20 mg PO DAILY 01/02/23 07/25/24 07/25/24 History (Trintellix) clonazepam 1 mg tablet 1 mg PO TID 01/08/24 07/25/24 07/25/24 History famotidine 20 mg tablet 20 mg PO BID 01/08/24 07/25/24 07/25/24 History hydroxyzine HCl 25 mg tablet 25 mg PO BEDTIME 01/08/24 07/25/24 07/24/24 History lamotrigine 25 mg tablet 50 mg PO BEDTIME 01/08/24 07/25/24 07/24/24 History tamsulosin 0.4 mg capsule 0.4 mg PO DAILY 01/08/24 07/25/24 07/25/24 History eszopiclone 3 mg tablet 3 mg PO BEDTIME 05/30/24 07/25/24 07/24/24 History bisacodyl 5 mg tablet,delayed 10 mg PO DAILY 07/25/24 07/25/24 07/25/24 History release esomeprazole magnesium 40 mg 40 mg PO DAILY 07/25/24 07/25/24 07/25/24 History capsule,delayed release (Nexium) fluticasone propionate 50 2 spray intranasal DAILY PRN 07/25/24 07/25/24 Unknown History mcg/actuation nasal Allergy Symptoms spray,suspension magnesium oxide 400 mg PO DAILY 07/25/24 07/25/24 07/25/24 History mirabegron 50 mg tablet,extended 50 mg PO DAILY 07/25/24 07/25/24 07/25/24 History release 24 hr (Myrbetriq) Physical Exam 2 Vital Signs: Vital Signs: Last Vital Signs Temp 98.6 F 07/25/24 18:07 Pulse 90 07/25/24 18:07 Resp 20 07/25/24 19:37 BP 135/72 07/25/24 18:07 Pulse Ox 98 07/25/24 18:07 O2 Del Method Room Air 07/25/24 18:07 BMI result Body Mass Index 39.3 Const: Other: Morbidly obese General: comfortable and no acute distress Orientation/consciousness: p atient oriented x3 Neck: Neck: Yes no lymphadenopathy Resp: Auscultation: clear to auscultation bilaterally Cardio: Rhythm: regular rhythm GI: Other: Distended but soft, mild diffuse tenderness Palpation (GI): Soft to palpation, Tenderness to palpation present (GI), no guarding and not rigid Neuro: General: patient oriented x3 Results Labs 07/31/24 06:41 07/31/24 06:41 Labs: Abnormal lab results 07/25/24 Range/Units 17:46 Plt Count 458 H (160-400) X10*3/uL Alkaline Phosphatase 134 H (39-117) U/L Short CBC 07/25/24 Range/Units 17:46 WBC 7.7 (4.8-10.8) X10*3/uL Hgb 13.4 (12.0-16.0) g/dl Hct 39.7 (37.0-47.0) % Plt Count 458 H (160-400) X10*3/uL BMP 07/25/24 17:46 Sodium 137 Potassium 4.5 Chloride 104 Carbon Dioxide 26 BUN 10 Creatinine 0.85 Calcium 9.3 Liver Function 07/25/24 Range/Units 17:46 Total Bilirubin 0.2 (0.0-1.0) mg/dL AST 20 (5-31) U/L ALT 18 (0-31) U/L Alkaline Phosphatase 134 H (39-117) U/L Albumin 4.0 (3.5-5.0) g/dL Urine 07/25/24 Range/Units 19:39 Urine Color Yellow Urine Appearance Clear Urine pH 6.0 (5.0-9.0) Ur Specific [place] 1.010 (1.005-1.025) Urine Protein Negative (Neg-Trace) mg/dL Urine Glucose (UA) Negative (Negative) mg/dL All other labs normal. Procedures Date of Service Date of Service: 07/31/24
[2024-07-25 21:29] VITALS: RESP 20
[2024-07-25] MEDS: Magnesium Citrate 300 ML SOLUTION PO (21:30)
[2024-07-25 21:58] VITALS: BP 94/57; PULSE 74; RESP 19; TEMP 36.9; O2SAT 97
--- NOTE | 2024-07-25 22:27 | PHA.MEDREC ---
Addendum entered by Cherelle Mosher RPh 07/25/24 22:35: Reviewed by [facility] Original Note: Pharmacy Consult ? Medication Reconciliation Pharmacy has completed the medication reconciliation. Spoke to patient to confirm med list. patient states she is no longer taking Cholestyramin 4 gm powder packets, Metoclopramide 10 mg, Pantoprazole 40 mg,Tramadol 50 mg, Trazadone 50 mg and Zolpidem 10 mg. Patient confirmed she takes Lamotrigine 200 mg daily and Lamotrigine 50 mg at bedtime.
[2024-07-25 22:53] VITALS: BP 113/69; PULSE 84; RESP 15; O2SAT 100
[2024-07-25] MEDS: 0.9 % Sodium Chloride 1,000 ML 999 ML IV (22:53)
--- NOTE | 2024-07-25 23:20 | PM.IMHP ---
History of Present Illness Date of Service: 07/25/24 Attending physician on admission: Joleen Chatman Chief Complaint: abd pain, bloating, constipation Pt is a 43 yo f with a pmhx significant for R occipital nerualgia, FND, IBS, interstitial cystitis, GERD, obesity, anxiety, depression, epidural abscess L2-L5, and multiple abd surgeries (randa, appy, hyst), who presented to the ED due to no BM x6 days, unable to pass flatus for unknown period of time, nausea, and intractable abd pain causing inability to eat. She reports intermittent fever (none here)and nausea but no vomiting. she has chronic GI issues and from the record review she has IBS and bile acid diarrhea on anti-diarrheals including questran to help with chronic diarrhea. she is also having GERD and epigastric pain. no melena or rectal bleeding. General surgery consulted in the ED and suggested admission for possible colonoscopy given colitis on CT and possiblilty of undiagnosed IBD. the pt reported a hx of ulcers on her colonoscopy. Review of Systems Constitutional: Constitutional: Denies body ache(s), Denies chills, Denies fatigue, Reports fever(s) and Denies headache(s) Eyes: Eyes: Denies change in vision and Denies photophobia ENT: Denies headache(s), Denies nasal congestion, Denies nasal discharge and Denies sore throat Cardiovascular: Cardiovascular: Denies chest pain, Denies rapid heart rate, Denies leg edema, Denies lightheadedness and Denies dyspnea Respiratory: Respiratory: Denies cough, Denies dyspnea and Denies wheezing Gastrointestinal: Gastrointestinal: Denies melena, Denies hematochezia, Reports constipation, Reports heartburn, Denies diarrhea, Reports nausea and Denies vomiting Genitourinary: Genitourinary: Denies dysuria and Denies urinary urgency Musculoskeletal: Musculoskeletal: Denies myalgias Integumentary/Breasts: Skin/Breast: Denies rash Neurologic: Denies confusion and Denies headache(s) Psychiatric: Psychiatric: Denies confusion Endocrine: Endocrine: Denies fatigue Hematologic/Lymphatic: Hematologic/Lymphatic: Denies easy bleeding and Denies easy bruising Allergic/Immunologic: Allergic/Immunologic: Denies wheezing [facility] Medical History Interstitial cystitis IBS (irritable bowel syndrome) Occipital neuralgia of right side History of colitis Gastric ulcer History of suicidal ideation Anxiety Agoraphobia MDD (major depressive disorder) PTSD (post-traumatic stress disorder) Functional capacity: independent ambulation Family History Father Prostate cancer Maternal Uncle Colon cancer Maternal Grandmother Breast cancer Surgical History H/O: hysterectomy Hx of cholecystectomy (~12/2022) Social History Smoked in Last 30 Days: No Use of substances other than those prescribed or required for medical reasons: No Advance Directives: No Advance Directives Information Provided: No Patient : No Narrative: No smoking, alcohol or drug use Meds Allergies Allergy/AdvReac Type Severity Reaction Status Date / Time propofol Allergy Intermediate Itching Verified 07/25/24 16:50 morphine Allergy Mild Itching Verified 07/25/24 16:50 Active Medications: Current Medications Acetaminophen (Acetaminophen 325 Mg Tablet) 975 mg PO Q6H PRN PRN Reason: Pain, Mild 1-3,fever,headache Calcium Carbonate (Calcium Carbonate 750 Mg Tab.Chew) 750 mg PO Q4H PRN PRN Reason: Heartburn Clonazepam (Clonazepam 1 Mg Tablet) 1 mg PO TID MARIAH Famotidine (Famotidine 20 Mg Tablet) 20 mg PO BID MARIAH Fluticasone Propionate (Fluticasone Propionate Nasal 16 Gm [place]) 2 spray NOSTRIL-B DAILY PRN PRN Reason: Allergy Symptoms Hydromorphone HCl (Hydromorphone Hcl 1 Mg/Ml Syringe) 0.5 mg IVPUSH Q4H PRN; Protocol PRN Reason: Pain, Severe (Pain Scale 7-10) Hydroxyzine HCl (Hydroxyzine Hcl 25 Mg Tablet) 25 mg PO BEDTIME MARIAH Sodium Chloride (Ns) 1,000 mls @ 999 mls/hr IV .Q1H1M MARIAH Stop: 07/26/24 00:00 Last Admin: 07/25/24 22:53 Dose: 999 mls/hr Ketorolac Tromethamine (Ketorolac Tromethamine 30 Mg/Ml Vial) 30 mg IVPUSH Q6H PRN PRN Reason: Pain, Moderate(Pain Scale 4-6) Stop: 07/30/24 23:09 Lamotrigine (Lamotrigine 100 Mg Tablet) 200 mg PO DAILY MARIAH Lamotrigine (Lamotrigine 25 Mg Tablet) 50 mg PO BEDTIME MARIAH Magnesium Hydroxide (Milk Of Magnesia 30 Ml Oral.Susp) 30 ml PO DAILY PRN PRN Reason: Constipation Magnesium Hydroxide (Milk Of Magnesia 30 Ml Oral.Susp) 10 ml PO DAILY PRN PRN Reason: constipation Melatonin (Melatonin 3 Mg Tablet) 6 mg PO BEDTIME PRN PRN Reason: Insomnia Non-Formulary Medication (Cholecalciferol (Vitamin D3)) 125 mcg PO DAILY MARIAH Non-Formulary Medication (Esomeprazole Magnesium [Nexium]) 40 mg PO DAILY MARIAH Non-Formulary Medication (Eszopiclone) 3 mg PO BEDTIME [facility] Ondansetron HCl (Ondansetron Hcl 4 Mg/2 Ml Vial) 4 mg IVPUSH Q8H PRN PRN Reason: Nausea and Vomiting Sodium Chloride (0.9 % Sodium Chloride Flush 3 Ml Syringe) 3 ml IVFLUSH QSHIFT [facility] Home Medications ?Medication ?Instructions ?Recorded ?Confirmed ?Last Taken ?Type lamotrigine 200 mg tablet 200 mg PO DAILY 01/02/23 07/25/24 07/25/24 History valacyclovir 500 mg tablet 500 mg PO DAILY 01/02/23 07/25/24 07/25/24 History vortioxetine 20 mg tablet 20 mg PO DAILY 01/02/23 07/25/24 07/25/24 History (Trintellix) clonazepam 1 mg tablet 1 mg PO TID 01/08/24 07/25/24 07/25/24 History famotidine 20 mg tablet 20 mg PO BID 01/08/24 07/25/24 07/25/24 History hydroxyzine HCl 25 mg tablet 25 mg PO BEDTIME 01/08/24 07/25/24 07/24/24 History lamotrigine 25 mg tablet 50 mg PO BEDTIME 01/08/24 07/25/24 07/24/24 History tamsulosin 0.4 mg capsule 0.4 mg PO DAILY 01/08/24 07/25/24 07/25/24 History eszopiclone 3 mg tablet 3 mg PO BEDTIME 05/30/24 07/25/24 07/24/24 History bisacodyl 5 mg tablet,delayed 10 mg PO DAILY 07/25/24 07/25/24 07/25/24 History release esomeprazole magnesium 40 mg 40 mg PO DAILY 07/25/24 07/25/24 07/25/24 History capsule,delayed release (Nexium) fluticasone propionate 50 2 spray intranasal DAILY PRN 07/25/24 07/25/24 Unknown History mcg/actuation nasal Allergy Symptoms spray,suspension magnesium oxide 400 mg PO DAILY 07/25/24 07/25/24 07/25/24 History mirabegron 50 mg tablet,extended 50 mg PO DAILY 07/25/24 07/25/24 07/25/24 History release 24 hr (Myrbetriq) Physical Exam Vital Signs and Narrative: Vital Signs: Last Vital Signs Temp 98.5 F 07/25/24 21:58 Pulse 84 07/25/24 22:53 Resp 15 07/25/24 22:53 BP 113/69 07/25/24 22:53 Pulse Ox 100 07/25/24 22:53 O2 Del Method Room Air 07/25/24 22:53 BMI result Body Mass Index 39.3 General: AOx3, no acute distress Resp: CTA bilaterally CVS: S1, S2, RRR GI: +BS, generalized tenderness, distended Skin: Warm, dry Neuro: Cranial nerves II-XII grossly intact bilaterally. Motor grossly intact bilaterally Extremities: No LE edema Psych: Appropriate affect Const: General: No confusion Orientation/consciousness: No confusion Eyes: Direct Ophthalmoscopy: No photophobia Neuro: General: No confusion Results Labs 07/25/24 17:46 07/25/24 17:46 Labs: Laboratory Results - last 24 hr 07/25/24 07/25/24 17:46 19:39 MCV 81.5 MCH 27.5 MCHC 33.8 RDW 14.1 Plt Count 458 H MPV 9.6 Immature Gran % (Auto) 0.4 Neut % (Auto) 58.9 Lymph % (Auto) 31.7 [place] % (Auto) 7.1 Eos % (Auto) 1.6 Baso % (Auto) 0.3 Lymph # (Auto) 2.4 [place] # (Auto) 0.6 Eos # (Auto) 0.1 Baso # (Auto) 0.0 Abs Immat Gran (auto) 0.03 Absolute Neuts (auto) 4.5 Absolute Nucleated RBC 0.000 Nucleated RBC % (auto) 0.0 Anion Gap 12 Estim Creat Clear Calc 101.2 Estimated GFR > 60 Random Glucose 103 Calcium 9.3 Magnesium 2.1 Total Bilirubin 0.2 AST 20 ALT 18 Alkaline Phosphatase 134 H Total Protein 7.6 Albumin 4.0 Lipase 11 Beta HCG, Quant < 2 Urine Color Yellow Urine Appearance Clear Urine pH 6.0 Ur Specific [place] 1.010 Urine Protein Negative Urine Glucose (UA) Negative Urine Ketones Negative Urine Blood Negative Urine Nitrite Negative Ur Leukocyte Esterase Negative Assessment and Plan (1) Intractable abdominal pain: Status: Acute (2) Constipation: Status: Acute (3) Hypotension: Status: Acute (4) Obesity, Class II, BMI 35-39.9: Status: Acute Plan Pt is a 43 yo f with a pmhx significant for R occipital neuralgia, FND, IBS, interstitial cystitis, GERD, obesity, anxiety, depression, epidural abscess L2-L5, and multiple abd surgeries (randa, appy, hyst), who presented to the ED due to no BM x6 days, unable to pass flatus for unknown period of time, nausea, and intractable abd pain causing inability to eat. General surgery consulted in the ED and suggested admission for possible colonoscopy and possibility of undiagnosed IBD. the pt reported a hx of ulcers on her colonoscopy. constipation, intractable abd pain - WBC normal, hypotensive due to morphine, no sepsis - KUB with Moderate stool in ascending and sigmoid colon. Diffuse colonic distention which may represent ileus but if developing obstruction is suspected follow-up should be obtained - A/P CT with moderate stool in the ascending colon with mild distention in the ascending and transverse colon, no obstruction - AST/ALT normal, alk phos slightly elevated but chronic and stable. hx of randa. - surgery to follow due to KUB with concern , suggested possible colonoscopy - GI consult - given mag citrate 300ml in ED, await response, bowels were active on exam - continue home constipation meds - follow CBC and BMP hypotension - secondary to morphine, improved with 1 L IV fluids - monitor BP Occipital neuralgia/FND - continue home meds GERD - continue PPI and famotidine Anxiety/depression - continue home meds class 2 obesity - BMI 39.3 - weight loss encouraged full code VTE prophy: pneumoboots given possible colonoscopy Pt with intractable abd pain due to constipation, requiring admission for at least 2 midnights stay for pain management, GI consult and possible colonscopy. Quality Stroke Does the patient have a stroke diagnosis?: No VTE Prior VTE?: No VTE Risk Level:: Medical - moderate - high VTE Device Contraindication: N/A - Device Ordered VTE Drug Contraindication: Treatment Not Indicated
[2024-07-26] VITALS (10 sets, daily range): BP systolic 109–157; BP diastolic 59–93; PULSE 72–100; RESP 15–18; TEMP 36.3–37; O2SAT 94–98
[2024-07-26] MEDS: Sennosides 8.6 MG TABLET 17.2 MG PO (00:19)
[2024-07-26] MEDS: Famotidine 20 MG TABLET PO ×3 (00:20→21:11)
[2024-07-26] MEDS: clonazePAM 1 MG TABLET PO ×4 (00:20→21:11)
[2024-07-26] MEDS: lamoTRIgine 25 MG TABLET 50 MG PO ×2 (00:20→21:11)
[2024-07-26] MEDS: HYDROmorphone HCl 1 MG/ML SYRINGE 0.5 MG IVPUSH ×4 (04:48→22:00)
[2024-07-26 06:09] LABS: Hematocrit 37.8 % (37.0-47.0); Hemoglobin 12.9 g/dl (12.0-16.0); Mean Corpuscular HGB Conc 34.1 g/dl (31.0-35.0); Mean Corpuscular Hemoglobin 27.7 pg (27.0-33.0); Mean Corpuscular Volume 81.1 fL (80.0-98.0); Mean Platelet Volume 9.6 fL (9.4-12.3); Platelet Count 415 X10*3/uL (160-400); Red Blood Count 4.66 X10*6/uL (4.20-5.50); Red Cell Distribution Width 14.4 % (11.0-16.0); White Blood Count 7.4 X10*3/uL (4.8-10.8)
[2024-07-26 06:27] LABS: Anion Gap 12 (12-20); Blood Urea Nitrogen 10 mg/dL (9-16); Calcium 8.7 mg/dL (8.4-10.2); Carbon Dioxide 23 mmol/L (22-29); Chloride 106 mmol/L (96-108); Creatinine Clr Calc Pharmacy 122.8; Estimated Glomerular Filt Rate > 60; Glucose Random 101 mg/dL (60-115); Sodium 137 mmol/L (135-145)
[2024-07-26] MEDS: Fluticasone Propionate Nasal 16 GM SPRAY 2 SPRAY NOSTRIL-B (08:31)
[2024-07-26] MEDS: Magnesium Oxide 400 MG TABLET PO (08:31)
[2024-07-26] MEDS: valACYclovir HCL 500 MG TABLET PO (08:31)
[2024-07-26] MEDS: bisacodyL 5 MG TABLET.DR 10 MG PO (08:31)
[2024-07-26] MEDS: lamoTRIgine 100 MG TABLET 200 MG PO (08:31)
[2024-07-26] MEDS: Cholecalciferol (Vitamin D3) 25 MCG TABLET 125 MCG PO (08:32)
[2024-07-26] MEDS: Tamsulosin HCL 0.4 MG CAPSULE PO (08:32)
--- NOTE | 2024-07-26 08:37 | PC.NURSE ---
assumed care of patient at 0700, patient is awake and alert, resp even and unlabored. patient states pain is controlled, states she remains itchy from the morphine she was given. patient states she still has not had a bowel movement. medicated per MAY, inpatient attending at bedside.
--- NOTE | 2024-07-26 08:51 | PM.GICN ---
History of Present Illness Data of Consult Service Date: 07/26/24 Primary Care Provider: Nonstaff Physician DAISY This is a 43-year-old female with past medical history of FMD, constipation, this has cystitis, who presented to the emergency room overnight for constipation x6 days. Patient is established with outpatient Gastroenterology for irritable bowel syndrome with diarrhea, in typically takes cholestyramine as outpatient to help with chronic diarrhea. However, this time around his not been able to have any bowel movements x almost a week and could not pass gas x2 days. This is assoc with worsening abd pain, nausea, inability to tolerate PO. No fevers or chills. CT abdomen pelvis from yest shows wall thickening and narrowing of rectosigmoid with significant stool burden and mild distention prox to it. No radiographic signs of LBO. Pt has had varying degrees of wall thickness in this region on prev scans as well since 2022 at least. Denies taking any anti-diarrheals or bile acid sequestrant in the past couple of weeks. Was given mag citrate in ER and since then reports passed a little flatus. Labs with normal electrolytes and renal function. Pt reports having a colo at [facility] [place] 2021 and was told about 2 colon ulcers . She is unsure of location. Does not recall being explicitly told re IBD diagnosis. Review of Systems Review of Systems: Yes all other systems are reviewed and are negative PMFSH Past Medical History Medical History Interstitial cystitis IBS (irritable bowel syndrome) Occipital neuralgia of right side History of colitis Gastric ulcer History of suicidal ideation Anxiety Agoraphobia MDD (major depressive disorder) PTSD (post-traumatic stress disorder) Family History Family History Father Prostate cancer Maternal Uncle Colon cancer Maternal Grandmother Breast cancer Surgical History Surgical History H/O: hysterectomy Hx of cholecystectomy (~12/2022) Social History Social History Comment: unknown at time report written Meds Allergies Allergy/AdvReac Type Severity Reaction Status Date / Time propofol Allergy Intermediate Itching Verified 07/25/24 16:50 morphine Allergy Mild Itching Verified 07/25/24 16:50 Active Medications: Current Medications Acetaminophen (Acetaminophen 325 Mg Tablet) 975 mg PO Q6H PRN PRN Reason: Pain, Mild 1-3,fever,headache Bisacodyl (Bisacodyl 5 Mg Tablet.Dr) 10 mg PO DAILY [facility] Last Admin: 07/26/24 08:31 Dose: 10 mg Calcium Carbonate (Calcium Carbonate 750 Mg Tab.Chew) 750 mg PO Q4H PRN PRN Reason: Heartburn Clonazepam (Clonazepam 1 Mg Tablet) 1 mg PO TID [facility] Last Admin: 07/26/24 08:31 Dose: 1 mg Famotidine (Famotidine 20 Mg Tablet) 20 mg PO BID [facility] Last Admin: 07/26/24 08:32 Dose: 20 mg Fluticasone Propionate (Fluticasone Propionate Nasal 16 Gm [place]) 2 spray NOSTRIL-B DAILY PRN PRN Reason: Allergy Symptoms Last Admin: 07/26/24 08:31 Dose: 2 spray Hydromorphone HCl (Hydromorphone Hcl 1 Mg/Ml Syringe) 0.5 mg IVPUSH Q4H PRN; Protocol PRN Reason: Pain, Severe (Pain Scale 7-10) Last Admin: 07/26/24 04:48 Dose: 0.5 mg Hydroxyzine HCl (Hydroxyzine Hcl 25 Mg Tablet) 25 mg PO BEDTIME [facility] Ketorolac Tromethamine (Ketorolac Tromethamine 30 Mg/Ml Vial) 30 mg IVPUSH Q6H PRN PRN Reason: Pain, Moderate(Pain Scale 4-6) Stop: 07/30/24 23:09 Lamotrigine (Lamotrigine 100 Mg Tablet) 200 mg PO DAILY [facility] Last Admin: 07/26/24 08:31 Dose: 200 mg Lamotrigine (Lamotrigine 25 Mg Tablet) 50 mg PO BEDTIME [facility] Last Admin: 07/26/24 00:20 Dose: 50 mg Magnesium Hydroxide (Milk Of Magnesia 30 Ml Oral.Susp) 30 ml PO DAILY PRN PRN Reason: Constipation Magnesium Hydroxide (Milk Of Magnesia 30 Ml Oral.Susp) 10 ml PO DAILY PRN PRN Reason: constipation Magnesium Oxide (Magnesium Oxide 400 Mg Tablet) 400 mg PO DAILY [facility] Last Admin: 07/26/24 08:31 Dose: 400 mg Melatonin (Melatonin 3 Mg Tablet) 6 mg PO BEDTIME PRN PRN Reason: Insomnia Mirabegron (Mirabegron 50 Mg Tab.Er.24h) 50 mg PO DAILY [facility] Non-Formulary Medication (Eszopiclone) 3 mg PO BEDTIME [facility] Omeprazole (Omeprazole 20 Mg Capsule.Dr) 20 mg PO DAILY@0630 [facility] Last Admin: 07/26/24 04:51 Dose: Not Given Ondansetron HCl (Ondansetron Hcl 4 Mg/2 Ml Vial) 4 mg IVPUSH Q8H PRN PRN Reason: Nausea and Vomiting Psyllium Hydrophilic Mucilloid (Psyllium Seed 3.7 Gm Packet) 3.7 gm PO DAILY [facility] Senna (Sennosides 8.6 Mg Tablet) 17.2 mg PO BEDTIME [facility] Last Admin: 07/26/24 00:19 Dose: 17.2 mg Sodium Chloride (0.9 % Sodium Chloride Flush 3 Ml Syringe) 3 ml IVFLUSH QSHIFT [facility] Last Admin: 07/26/24 08:11 Dose: Not Given Tamsulosin HCl (Tamsulosin Hcl 0.4 Mg Capsule) 0.4 mg PO DAILY [facility] Last Admin: 07/26/24 08:32 Dose: 0.4 mg Valacyclovir HCl (Valacyclovir Hcl 500 Mg Tablet) 500 mg PO DAILY [facility] Last Admin: 07/26/24 08:31 Dose: 500 mg Vitamin D (Cholecalciferol (Vitamin D3) 25 Mcg Tablet) 125 mcg PO DAILY [facility] Last Admin: 07/26/24 08:32 Dose: 125 mcg Vortioxetine (Vortioxetine Hydrobromide 20 Mg Tablet) 20 mg PO DAILY [facility] Home Medications ?Medication ?Instructions ?Recorded ?Confirmed ?Last Taken ?Type lamotrigine 200 mg tablet 200 mg PO DAILY 01/02/23 07/25/24 07/25/24 History valacyclovir 500 mg tablet 500 mg PO DAILY 01/02/23 07/25/24 07/25/24 History vortioxetine 20 mg tablet 20 mg PO DAILY 01/02/23 07/25/24 07/25/24 History (Trintellix) clonazepam 1 mg tablet 1 mg PO TID 01/08/24 07/25/24 07/25/24 History famotidine 20 mg tablet 20 mg PO BID 01/08/24 07/25/24 07/25/24 History hydroxyzine HCl 25 mg tablet 25 mg PO BEDTIME 01/08/24 07/25/24 07/24/24 History lamotrigine 25 mg tablet 50 mg PO BEDTIME 01/08/24 07/25/24 07/24/24 History tamsulosin 0.4 mg capsule 0.4 mg PO DAILY 01/08/24 07/25/24 07/25/24 History eszopiclone 3 mg tablet 3 mg PO BEDTIME 05/30/24 07/25/24 07/24/24 History bisacodyl 5 mg tablet,delayed 10 mg PO DAILY 07/25/24 07/25/24 07/25/24 History release esomeprazole magnesium 40 mg 40 mg PO DAILY 07/25/24 07/25/24 07/25/24 History capsule,delayed release (Nexium) fluticasone propionate 50 2 spray intranasal DAILY PRN 07/25/24 07/25/24 Unknown History mcg/actuation nasal Allergy Symptoms spray,suspension magnesium oxide 400 mg PO DAILY 07/25/24 07/25/24 07/25/24 History mirabegron 50 mg tablet,extended 50 mg PO DAILY 07/25/24 07/25/24 07/25/24 History release 24 hr (Myrbetriq) Physical Exam Vital Signs: Vital Signs: Last Vital Signs Temp 98.5 F 07/26/24 07:48 Pulse 87 07/26/24 07:48 Resp 16 07/26/24 07:48 BP 109/69 07/26/24 07:48 Pulse Ox 97 07/26/24 07:48 O2 Del Method Room Air 07/26/24 07:48 BMI result Body Mass Index 39.3 middle aged female Nonicteric abd distended, firm, very tender jimmie in RLQ with guarding mild nonpitting JAZ Results Labs 07/26/24 05:56 07/26/24 05:56 Labs: Short CBC 07/25/24 07/26/24 Range/Units 17:46 05:56 WBC 7.7 7.4 (4.8-10.8) X10*3/uL Hgb 13.4 12.9 (12.0-16.0) g/dl Hct 39.7 37.8 (37.0-47.0) % Plt Count 458 H 415 H (160-400) X10*3/uL BMP 07/25/24 07/26/24 17:46 05:56 Sodium 137 137 Potassium 4.5 4.0 Chloride 104 106 Carbon Dioxide 26 23 BUN 10 10 Creatinine 0.85 0.70 Calcium 9.3 8.7 D Liver Function 07/25/24 Range/Units 17:46 Total Bilirubin 0.2 (0.0-1.0) mg/dL AST 20 (5-31) U/L ALT 18 (0-31) U/L Alkaline Phosphatase 134 H (39-117) U/L Albumin 4.0 (3.5-5.0) g/dL Urine 07/25/24 Range/Units 19:39 Urine Color Yellow Urine Appearance Clear Urine pH 6.0 (5.0-9.0) Ur Specific [place] 1.010 (1.005-1.025) Urine Protein Negative (Neg-Trace) mg/dL Urine Glucose (UA) Negative (Negative) mg/dL Assessment and Plan (1) Constipation: Status: Acute (2) Colon wall thickening: Status: Acute (3) Stricture of sigmoid colon: Status: Acute Plan pt presenting with obstipation in the background of altered bowel habits x 2-3 years with reported ulcers in the colon - records from [facility] [place] pending whether acute/transient injury vs chronic inflammatory vs ischemic ulcers on path. Imaging with prominent rectosigmoid thickening without overt obstruction but with significant fecal loading jimmie on right side. Ddx include inflammatory stricture vs chronic ischemic ([place]) vs ?? diverticular though no diverticular pockets noted radiographically. Abd exam today somewhat concerning. Plan: - Urgent diagnostic flex sig - to be done unprepped with gastroscope and water insufflation - Avoid laxatives or enemas - Mag oxide, fiber, bisacodyl and senna discontinued - Serial abd exams - Low threshold for repeat imaging if abd tenderness progresses - Appreciate surgical input Thank you for allowing me to participate in her care. Please do not hesitate to reach out for questions or concerns. Procedures Date of Service Date of Service: 07/26/24
[2024-07-26] MEDS: Mirabegron 50 MG TAB.ER.24H PO (09:33)
[2024-07-26] MEDS: ondansetron HCL 4 MG/2 ML VIAL IVPUSH (09:33)
[2024-07-26] MEDS: Vortioxetine Hydrobromide 20 MG TABLET PO (09:33)
--- NOTE | 2024-07-26 10:12 | P.PNIM_ITS ---
Subjective Subjective Date of Service: 07/26/24 Interval History: No bowel movement, still with abdominal pain Physical Exam 2 Vital Signs: Vital Signs: Last Vital Signs Temp 98.4 F 07/26/24 09:29 Pulse 100 07/26/24 09:29 Resp 16 07/26/24 09:29 BP 140/64 H 07/26/24 09:29 Pulse Ox 96 07/26/24 09:29 O2 Del Method Room Air 07/26/24 09:29 BMI result Body Mass Index 39.3 General: AO X 3, no acute distress Resp: CTA bilateral, no accessory muscles used CVS: S1,S2,RRR GI: soft, mildly tender, non distended Neuro: motor grossly intact, alert Psych: appropriate affect, appropriate insight Objective Data Active Medications Acetaminophen (Acetaminophen 325 Mg Tablet) 975 mg PO Q6H PRN PRN Reason: Pain, Mild 1-3,fever,headache Bisacodyl (Bisacodyl 5 Mg Tablet.Dr) 10 mg PO DAILY [facility] Last Admin: 07/26/24 08:31 Dose: 10 mg Documented By: DEJUAN Calcium Carbonate (Calcium Carbonate 750 Mg Tab.Chew) 750 mg PO Q4H PRN PRN Reason: Heartburn Clonazepam (Clonazepam 1 Mg Tablet) 1 mg PO TID [facility] Last Admin: 07/26/24 08:31 Dose: 1 mg Documented By: DEJUAN Famotidine (Famotidine 20 Mg Tablet) 20 mg PO BID [facility] Last Admin: 07/26/24 08:32 Dose: 20 mg Documented By: DEJUAN Fluticasone Propionate (Fluticasone Propionate Nasal 16 Gm [place]) 2 spray NOSTRIL-B DAILY PRN PRN Reason: Allergy Symptoms Last Admin: 07/26/24 08:31 Dose: 2 spray Documented By: DEJUAN Hydromorphone HCl (Hydromorphone Hcl 1 Mg/Ml Syringe) 0.5 mg IVPUSH Q4H PRN; Protocol PRN Reason: Pain, Severe (Pain Scale 7-10) Last Admin: 07/26/24 09:33 Dose: 0.5 mg Documented By: MELISA Hydroxyzine HCl (Hydroxyzine Hcl 25 Mg Tablet) 25 mg PO BEDTIME [facility] Ketorolac Tromethamine (Ketorolac Tromethamine 30 Mg/Ml Vial) 30 mg IVPUSH Q6H PRN PRN Reason: Pain, Moderate(Pain Scale 4-6) Stop: 07/30/24 23:09 Lamotrigine (Lamotrigine 100 Mg Tablet) 200 mg PO DAILY [facility] Last Admin: 07/26/24 08:31 Dose: 200 mg Documented By: DEJUAN Lamotrigine (Lamotrigine 25 Mg Tablet) 50 mg PO BEDTIME [facility] Last Admin: 07/26/24 00:20 Dose: 50 mg Documented By: CORBY Magnesium Hydroxide (Milk Of Magnesia 30 Ml Oral.Susp) 30 ml PO DAILY PRN PRN Reason: Constipation Magnesium Hydroxide (Milk Of Magnesia 30 Ml Oral.Susp) 10 ml PO DAILY PRN PRN Reason: constipation Magnesium Oxide (Magnesium Oxide 400 Mg Tablet) 400 mg PO DAILY [facility] Last Admin: 07/26/24 08:31 Dose: 400 mg Documented By: DEJUAN Melatonin (Melatonin 3 Mg Tablet) 6 mg PO BEDTIME PRN PRN Reason: Insomnia Mirabegron (Mirabegron 50 Mg Tab.Er.24h) 50 mg PO DAILY [facility] Last Admin: 07/26/24 09:33 Dose: 50 mg Documented By: MELISA Non-Formulary Medication (Eszopiclone) 3 mg PO BEDTIME [facility] Omeprazole (Omeprazole 20 Mg Capsule.Dr) 20 mg PO DAILY@0630 [facility] Last Admin: 07/26/24 04:51 Dose: Not Given Documented By: CORBY Non-Admin Reason: NPO Ondansetron HCl (Ondansetron Hcl 4 Mg/2 Ml Vial) 4 mg IVPUSH Q8H PRN PRN Reason: Nausea and Vomiting Last Admin: 07/26/24 09:33 Dose: 4 mg Documented By: MELISA Psyllium Hydrophilic Mucilloid (Psyllium Seed 3.7 Gm Packet) 3.7 gm PO DAILY [facility] Last Admin: 07/26/24 09:43 Dose: Not Given Documented By: MELISA Non-Admin Reason: NPO Senna (Sennosides 8.6 Mg Tablet) 17.2 mg PO BEDTIME [facility] Last Admin: 07/26/24 00:19 Dose: 17.2 mg Documented By: CORBY Sodium Chloride (0.9 % Sodium Chloride Flush 3 Ml Syringe) 3 ml IVFLUSH QSHIFT [facility] Last Admin: 07/26/24 08:11 Dose: Not Given Documented By: DEJUAN Non-Admin Reason: See Note Tamsulosin HCl (Tamsulosin Hcl 0.4 Mg Capsule) 0.4 mg PO DAILY [facility] Last Admin: 07/26/24 08:32 Dose: 0.4 mg Documented By: DEJUAN Valacyclovir HCl (Valacyclovir Hcl 500 Mg Tablet) 500 mg PO DAILY [facility] Last Admin: 07/26/24 08:31 Dose: 500 mg Documented By: DEJUAN Vitamin D (Cholecalciferol (Vitamin D3) 25 Mcg Tablet) 125 mcg PO DAILY [facility] Last Admin: 07/26/24 08:32 Dose: 125 mcg Documented By: DEJUAN Vortioxetine (Vortioxetine Hydrobromide 20 Mg Tablet) 20 mg PO DAILY [facility] Last Admin: 07/26/24 09:33 Dose: 20 mg Documented By: MELISA Labs 07/26/24 05:56 07/26/24 05:56 Labs: Laboratory Results - last 24 hr 07/25/24 07/25/24 07/26/24 17:46 19:39 05:56 MCV 81.5 81.1 MCH 27.5 27.7 MCHC 33.8 34.1 RDW 14.1 14.4 Plt Count 458 H 415 H MPV 9.6 9.6 Immature Gran % (Auto) 0.4 Neut % (Auto) 58.9 Lymph % (Auto) 31.7 [place] % (Auto) 7.1 Eos % (Auto) 1.6 Baso % (Auto) 0.3 Lymph # (Auto) 2.4 [place] # (Auto) 0.6 Eos # (Auto) 0.1 Baso # (Auto) 0.0 Abs Immat Gran (auto) 0.03 Absolute Neuts (auto) 4.5 Absolute Nucleated RBC 0.000 0.000 Nucleated RBC % (auto) 0.0 0.0 Anion Gap 12 12 Estim Creat Clear Calc 101.2 122.8 Estimated GFR > 60 > 60 Random Glucose 103 101 Calcium 9.3 8.7 D Magnesium 2.1 Total Bilirubin 0.2 AST 20 ALT 18 Alkaline Phosphatase 134 H Total Protein 7.6 Albumin 4.0 Lipase 11 Beta HCG, Quant < 2 Urine Color Yellow Urine Appearance Clear Urine pH 6.0 Ur Specific [place] 1.010 Urine Protein Negative Urine Glucose (UA) Negative Urine Ketones Negative Urine Blood Negative Urine Nitrite Negative Ur Leukocyte Esterase Negative Assessment and Plan (1) Obesity, Class II, BMI 35-39.9: Status: Acute Plan 43F PMH morbid obesity, occipital neuralgia, IBS, interstitial cystitis, GERD, anxiety, depression presented with abdominal pain and constipation' Constipation abdominal pain Noted to have narrowing of sigmoid on imaging General surgery and GI following Mood disorder Continue Lamictal, Klonopin Morbid obesity Weight loss recommended DVT prophylaxis-Lovenox Full code reason for continued hospitalization: Abdominal pain Quality Stroke Does the patient have a stroke diagnosis?: No VTE Prior VTE?: No VTE Risk Level:: Medical - moderate - high VTE Device Contraindication: N/A - Device Ordered VTE Drug Contraindication: Treatment Not Indicated
--- NOTE | 2024-07-26 10:50 | PM.PNGS ---
Subjective Subjective Date of Service: 07/26/24 Interval history: States that she still has same abdominal pain Passing flatus No BMs A little nausea but no vomiting Physical Exam Vital Signs: Vital Signs: Last Vital Signs Temp 98.4 F 07/26/24 09:29 Pulse 100 07/26/24 09:29 Resp 16 07/26/24 09:29 BP 140/64 H 07/26/24 09:29 Pulse Ox 96 07/26/24 09:29 O2 Del Method Room Air 07/26/24 09:29 BMI result Body Mass Index 39.3 Const: Other: Morbidly obese, appears uncomfortable Resp: Effort & Inspection: normal respiratory effort Cardio: Rate: regular rate GI: Other: Distended but soft, this some diffuse tenderness with no guarding Objective Data Active Medications Acetaminophen (Acetaminophen 325 Mg Tablet) 975 mg PO Q6H PRN PRN Reason: Pain, Mild 1-3,fever,headache Calcium Carbonate (Calcium Carbonate 750 Mg Tab.Chew) 750 mg PO Q4H PRN PRN Reason: Heartburn Clonazepam (Clonazepam 1 Mg Tablet) 1 mg PO TID [facility] Last Admin: 07/26/24 08:31 Dose: 1 mg Documented By: DEJUAN Enoxaparin Sodium (Enoxaparin Sodium 40 Mg/0.4 Ml Syringe) 40 mg SUBCUT Q24H [facility] Famotidine (Famotidine 20 Mg Tablet) 20 mg PO BID [facility] Last Admin: 07/26/24 08:32 Dose: 20 mg Documented By: DEJUAN Fluticasone Propionate (Fluticasone Propionate Nasal 16 Gm [place]) 2 spray NOSTRIL-B DAILY PRN PRN Reason: Allergy Symptoms Last Admin: 07/26/24 08:31 Dose: 2 spray Documented By: DEJUAN Hydromorphone HCl (Hydromorphone Hcl 1 Mg/Ml Syringe) 0.5 mg IVPUSH Q4H PRN; Protocol PRN Reason: Pain, Severe (Pain Scale 7-10) Last Admin: 07/26/24 09:33 Dose: 0.5 mg Documented By: MELISA Hydroxyzine HCl (Hydroxyzine Hcl 25 Mg Tablet) 25 mg PO BEDTIME [facility] Ketorolac Tromethamine (Ketorolac Tromethamine 30 Mg/Ml Vial) 30 mg IVPUSH Q6H PRN PRN Reason: Pain, Moderate(Pain Scale 4-6) Stop: 07/30/24 23:09 Lamotrigine (Lamotrigine 100 Mg Tablet) 200 mg PO DAILY [facility] Last Admin: 07/26/24 08:31 Dose: 200 mg Documented By: DEJUAN Lamotrigine (Lamotrigine 25 Mg Tablet) 50 mg PO BEDTIME [facility] Last Admin: 07/26/24 00:20 Dose: 50 mg Documented By: CORBY Magnesium Hydroxide (Milk Of Magnesia 30 Ml Oral.Susp) 30 ml PO DAILY PRN PRN Reason: Constipation Magnesium Hydroxide (Milk Of Magnesia 30 Ml Oral.Susp) 10 ml PO DAILY PRN PRN Reason: constipation Melatonin (Melatonin 3 Mg Tablet) 6 mg PO BEDTIME PRN PRN Reason: Insomnia Mirabegron (Mirabegron 50 Mg Tab.Er.24h) 50 mg PO DAILY [facility] Last Admin: 07/26/24 09:33 Dose: 50 mg Documented By: MELISA Non-Formulary Medication (Eszopiclone) 3 mg PO BEDTIME [facility] Omeprazole (Omeprazole 20 Mg Capsule.Dr) 20 mg PO DAILY@0630 [facility] Last Admin: 07/26/24 04:51 Dose: Not Given Documented By: CORBY Non-Admin Reason: NPO Ondansetron HCl (Ondansetron Hcl 4 Mg/2 Ml Vial) 4 mg IVPUSH Q8H PRN PRN Reason: Nausea and Vomiting Last Admin: 07/26/24 09:33 Dose: 4 mg Documented By: MELISA Sodium Chloride (0.9 % Sodium Chloride Flush 3 Ml Syringe) 3 ml IVFLUSH QSHIFT [facility] Last Admin: 07/26/24 08:11 Dose: Not Given Documented By: DEJUAN Non-Admin Reason: See Note Tamsulosin HCl (Tamsulosin Hcl 0.4 Mg Capsule) 0.4 mg PO DAILY [facility] Last Admin: 07/26/24 08:32 Dose: 0.4 mg Documented By: DEJUAN Valacyclovir HCl (Valacyclovir Hcl 500 Mg Tablet) 500 mg PO DAILY [facility] Last Admin: 07/26/24 08:31 Dose: 500 mg Documented By: DEJUAN Vitamin D (Cholecalciferol (Vitamin D3) 25 Mcg Tablet) 125 mcg PO DAILY [facility] Last Admin: 07/26/24 08:32 Dose: 125 mcg Documented By: DEJUAN Vortioxetine (Vortioxetine Hydrobromide 20 Mg Tablet) 20 mg PO DAILY [facility] Last Admin: 07/26/24 09:33 Dose: 20 mg Documented By: MELISA Labs 07/26/24 05:56 07/26/24 05:56 Labs: Laboratory Results - last 24 hr 07/25/24 07/25/24 07/26/24 17:46 19:39 05:56 MCV 81.5 81.1 MCH 27.5 27.7 MCHC 33.8 34.1 RDW 14.1 14.4 Plt Count 458 H 415 H MPV 9.6 9.6 Immature Gran % (Auto) 0.4 Neut % (Auto) 58.9 Lymph % (Auto) 31.7 [place] % (Auto) 7.1 Eos % (Auto) 1.6 Baso % (Auto) 0.3 Lymph # (Auto) 2.4 [place] # (Auto) 0.6 Eos # (Auto) 0.1 Baso # (Auto) 0.0 Abs Immat Gran (auto) 0.03 Absolute Neuts (auto) 4.5 Absolute Nucleated RBC 0.000 0.000 Nucleated RBC % (auto) 0.0 0.0 Anion Gap 12 12 Estim Creat Clear Calc 101.2 122.8 Estimated GFR > 60 > 60 Random Glucose 103 101 Calcium 9.3 8.7 D Magnesium 2.1 Total Bilirubin 0.2 AST 20 ALT 18 Alkaline Phosphatase 134 H Total Protein 7.6 Albumin 4.0 Lipase 11 Beta HCG, Quant < 2 Urine Color Yellow Urine Appearance Clear Urine pH 6.0 Ur Specific [place] 1.010 Urine Protein Negative Urine Glucose (UA) Negative Urine Ketones Negative Urine Blood Negative Urine Nitrite Negative Ur Leukocyte Esterase Negative Procedures Date of Service Date of Service: 07/26/24 Progress Note: A&P Assessment and plan (1) Stricture of sigmoid colon: Status: Acute Assessment and Plan: She has similar pain today I did a follow up KUB -same pattern as yesterday, not worsening KUB shows a markedly distended bladder - straight cath ordered for retention; this may be contributing to her discomfort Review of her CT images May 2024 as well as yesterday shows a very long, diffuse thickening and narrowing of the sigmoid - this has not mentioned in the report Etiology uncertain but could be IBD She had colonoscopy in 2022 in [facility] and we are trying to get the report She has had a long history of GI issues Discussed with GI-she will do a flex sig this morning diagnostic purposes Time Spent With Patient Time: Total time managing care of this patient today ____ minutes. Quality Stroke Does the patient have a stroke diagnosis?: No VTE Prior VTE?: No VTE Risk Level:: Medical - moderate - high VTE Device Contraindication: N/A - Device Ordered VTE Drug Contraindication: Treatment Not Indicated
--- NOTE | 2024-07-26 11:51 | P.OPN-COLO_ITS ---
Colonoscopy Operative Note Operative Note Date of Service: 07/26/24 Narrative: Procedure: Flexible sigmoidoscopy Indication: Rectosigmoid narrowing, obstipation Endoscopist: Apoorva Villanueva MD Anesthesia Provider: Dr Ruben Iverson Anesthesia type: MAC Instrument: Olympus [id number] Consent: Indication, risks vs benefits, and alternatives were discussed with the patient who gave written informed consent to proceed. EKG, pulse, pulse oximetry and blood pressure were monitored throughout the procedure. Please see anesthesia flowsheet. Procedure: The patient was brought to the procedure room and placed supine for straight cath. 500 cc of urine removed. She was then placed in the left lateral decubitus position. IV medications were administered by the anesthesia provider in attendance. A digital rectal exam was performed which was abnormal due to finding of ext hemorrhoids. The gastroscope was then inserted through the anus and advanced through the colon to 45 cm. Mucosa was carefully examined under high definition white light as the instrument was slowly withdrawn in a retrograde panoramic fashion. Retroflexion was performed in rectum. The procedure was not difficult. There were no immediate obvious complications. The quality of the prep was adequate. Limitations: No limitations. Findings: Mucosa: Significant wall edema leading to narrowing of rectosigmoid up till 30 cm. Beyond this, colon was relatively distended and promptly decompressed. Mucosa appeared normal in rectum but had superficial superficial aphthous ulceration and exudates in reticular pattern in sigmoid colon to the extent visualized. Cold forceps biopsies were obtained. Protruding lesions: * Medium internal hemorrhoids without stigmata of recent bleeding. Impression: 1. Abnormal colon mucosa 2. Internal and external hemorrhoids Recommendations: - Await path results - Consider trial of hydrocortisone 100mg/60 ml enema once daily x 14 days - Please also consider may bladder scans as pt with hx of chronic intersitital cystitis with urinary retention on exam
--- NOTE | 2024-07-26 11:54 | MHC.CM.PN ---
PT L;WALTER WITH HAS A [employer] AND WILL HAVE OWN TRANSPORT HOME DC PLAN HOME W/[employer]
[2024-07-26] MEDS: Ketorolac Tromethamine 30 MG/ML VIAL IVPUSH (13:06)
[2024-07-26] MEDS: 0.9 % Sodium Chloride Flush 3 ML SYRINGE IVFLUSH (15:11)
--- NOTE | 2024-07-26 15:34 | P.EN_ITS ---
Event Note Date of Service: 07/26/24 Event Note: Seen on afternoon rounds Flex sig done - I was present during procedure Edematous looking sigmoid but not obstructed Question IBD Also, more than 500 cc of urine with straight catheterization just prior to flexing Abdominal pain maybe multifactorial with her interstitial cystitis, constipation/IBS She admits to having a long history of severe diarrhea and constipation Colonoscopy from [facility] from [facility] - small ulcer in the rectum seen otherwise seemed to have been unremarkable Okay to have ice chips We will continue to follow Distended but benign Discussed with the patient and Time Spent With Patient Time: Total time managing care of this patient today ____ minutes.
[2024-07-26] MEDS: Lactated Ringers 1,000 ML 80 ML IVCONT (18:24)
[2024-07-26] MEDS: Hydrocortisone 2.5 % Rectal Cr 30 GM TUBE 1 APPL PR (21:12)
[2024-07-26] MEDS: hydrOXYzine HCL 25 MG TABLET PO (22:08)
[2024-07-27] MEDS: HYDROmorphone HCl 1 MG/ML SYRINGE 0.5 MG IVPUSH ×4 (02:47→21:03)
[2024-07-27 03:12] VITALS: BP 115/56; PULSE 98; RESP 17; TEMP 36.2; O2SAT 95
[2024-07-27] MEDS: Omeprazole 20 MG CAPSULE.DR PO (05:20)
[2024-07-27] MEDS: Lactated Ringers 1,000 ML 80 ML IVCONT ×2 (05:21→17:47)
[2024-07-27] MEDS: Ketorolac Tromethamine 30 MG/ML VIAL IVPUSH ×2 (05:26→19:44)
[2024-07-27 05:37] LABS: Hematocrit 35.1 % (37.0-47.0); Hemoglobin 11.7 g/dl (12.0-16.0); Mean Corpuscular HGB Conc 33.3 g/dl (31.0-35.0); Mean Corpuscular Hemoglobin 27.7 pg (27.0-33.0); Mean Platelet Volume 9.8 fL (9.4-12.3); Platelet Count 358 X10*3/uL (160-400); Red Blood Count 4.23 X10*6/uL (4.20-5.50); Red Cell Distribution Width 14.4 % (11.0-16.0); White Blood Count 7.4 X10*3/uL (4.8-10.8)
[2024-07-27 05:53] LABS: Anion Gap 12 (12-20); Blood Urea Nitrogen 12 mg/dL (9-16); Calcium 8.4 mg/dL (8.4-10.2); Carbon Dioxide 28 mmol/L (22-29); Chloride 101 mmol/L (96-108); Creatinine Clr Calc Pharmacy 117.8; Estimated Glomerular Filt Rate > 60; Glucose Random 83 mg/dL (60-115); Sodium 137 mmol/L (135-145)
[2024-07-27 07:13] VITALS: BP 107/53; PULSE 91; RESP 16; TEMP 36.2; O2SAT 93
[2024-07-27] MEDS: Vortioxetine Hydrobromide 20 MG TABLET PO (08:18)
[2024-07-27] MEDS: Mirabegron 50 MG TAB.ER.24H PO (08:18)
[2024-07-27] MEDS: Famotidine 20 MG TABLET PO ×2 (08:18→19:48)
[2024-07-27] MEDS: lamoTRIgine 100 MG TABLET 200 MG PO (08:19)
[2024-07-27] MEDS: Tamsulosin HCL 0.4 MG CAPSULE PO (08:19)
[2024-07-27] MEDS: valACYclovir HCL 500 MG TABLET PO (08:19)
[2024-07-27] MEDS: Enoxaparin Sodium 40 MG/0.4 ML SYRINGE SUBCUT (08:20)
[2024-07-27] MEDS: Cholecalciferol (Vitamin D3) 25 MCG TABLET 125 MCG PO (08:20)
[2024-07-27] MEDS: clonazePAM 1 MG TABLET PO ×3 (08:20→19:48)
[2024-07-27] MEDS: Hydrocortisone 2.5 % Rectal Cr 30 GM TUBE 1 APPL PR ×2 (08:21→19:52)
--- NOTE | 2024-07-27 09:10 | PM.PNGS ---
Subjective Subjective Date of Service: 07/29/24 Interval history: Depressed this morning She says that her chronic GI issues with pain, extremes of diarrhea and constipation have been causing her marital issues now Pain seems better compared to yesterday No events reported by nurse Physical Exam Vital Signs: Vital Signs: Last Vital Signs Temp 97.2 F 07/27/24 07:13 Pulse 91 07/27/24 07:13 Resp 16 07/27/24 07:13 BP 107/53 L 07/27/24 07:13 Pulse Ox 93 07/27/24 07:13 O2 Del Method Room Air 07/27/24 07:13 BMI result Body Mass Index 39.3 Const: Other: Seems depressed General: no acute distress Resp: Effort & Inspection: normal respiratory effort Cardio: Rate: regular rate GI: Other: Obese, soft, mild diffuse tenderness with no guarding or rebound Objective Data Active Medications Acetaminophen (Acetaminophen 325 Mg Tablet) 975 mg PO Q6H PRN PRN Reason: Pain, Mild 1-3,fever,headache Calcium Carbonate (Calcium Carbonate 750 Mg Tab.Chew) 750 mg PO Q4H PRN PRN Reason: Heartburn Clonazepam (Clonazepam 1 Mg Tablet) 1 mg PO TID [facility] Last Admin: 07/27/24 08:20 Dose: 1 mg Documented By: MELISA Enoxaparin Sodium (Enoxaparin Sodium 40 Mg/0.4 Ml Syringe) 40 mg SUBCUT Q24H [facility] Last Admin: 07/27/24 08:20 Dose: 40 mg Documented By: MELISA Famotidine (Famotidine 20 Mg Tablet) 20 mg PO BID [facility] Last Admin: 07/27/24 08:18 Dose: 20 mg Documented By: MELISA Fluticasone Propionate (Fluticasone Propionate Nasal 16 Gm [place]) 2 spray NOSTRIL-B DAILY PRN PRN Reason: Allergy Symptoms Last Admin: 07/26/24 08:31 Dose: 2 spray Documented By: DEJUAN Hydrocortisone (Hydrocortisone 2.5 % Rectal Cr 30 Gm Tube) 1 appl MO BID [facility] Last Admin: 07/27/24 08:21 Dose: 1 appl Documented By: MELISA Hydromorphone HCl (Hydromorphone Hcl 1 Mg/Ml Syringe) 0.5 mg IVPUSH Q4H PRN; Protocol PRN Reason: Pain, Severe (Pain Scale 7-10) Last Admin: 07/27/24 08:18 Dose: 0.5 mg Documented By: MELISA Hydroxyzine HCl (Hydroxyzine Hcl 25 Mg Tablet) 25 mg PO BEDTIME [facility] Last Admin: 07/26/24 22:08 Dose: 25 mg Documented By: JHON Lactated Ringer's (Lr) 1,000 mls @ 80 mls/hr IVCONT .[id number] [facility] Last Admin: 07/27/24 05:21 Dose: 80 mls/hr Documented By: JHON Ketorolac Tromethamine (Ketorolac Tromethamine 30 Mg/Ml Vial) 30 mg IVPUSH Q6H PRN PRN Reason: Pain, Moderate(Pain Scale 4-6) Stop: 07/30/24 23:09 Last Admin: 07/27/24 05:26 Dose: 30 mg Documented By: JHON Lamotrigine (Lamotrigine 100 Mg Tablet) 200 mg PO DAILY [facility] Last Admin: 07/27/24 08:19 Dose: 200 mg Documented By: MELISA Lamotrigine (Lamotrigine 25 Mg Tablet) 50 mg PO BEDTIME [facility] Last Admin: 07/26/24 21:11 Dose: 50 mg Documented By: JHON Magnesium Hydroxide (Milk Of Magnesia 30 Ml Oral.Susp) 30 ml PO DAILY PRN PRN Reason: Constipation Magnesium Hydroxide (Milk Of Magnesia 30 Ml Oral.Susp) 10 ml PO DAILY PRN PRN Reason: constipation Melatonin (Melatonin 3 Mg Tablet) 6 mg PO BEDTIME PRN PRN Reason: Insomnia Mirabegron (Mirabegron 50 Mg Tab.Er.24h) 50 mg PO DAILY [facility] Last Admin: 07/27/24 08:18 Dose: 50 mg Documented By: MELISA Omeprazole (Omeprazole 20 Mg Capsule.Dr) 20 mg PO DAILY@0630 [facility] Last Admin: 07/27/24 05:20 Dose: 20 mg Documented By: JHON Ondansetron HCl (Ondansetron Hcl 4 Mg/2 Ml Vial) 4 mg IVPUSH Q8H PRN PRN Reason: Nausea and Vomiting Last Admin: 07/26/24 09:33 Dose: 4 mg Documented By: MELISA Sodium Chloride (0.9 % Sodium Chloride Flush 3 Ml Syringe) 3 ml IVFLUSH QSHIFT [facility] Last Admin: 07/27/24 07:01 Dose: Not Given Documented By: MELISA Non-Admin Reason: IV Running Tamsulosin HCl (Tamsulosin Hcl 0.4 Mg Capsule) 0.4 mg PO DAILY [facility] Last Admin: 07/27/24 08:19 Dose: 0.4 mg Documented By: MELISA Valacyclovir HCl (Valacyclovir Hcl 500 Mg Tablet) 500 mg PO DAILY [facility] Last Admin: 07/27/24 08:19 Dose: 500 mg Documented By: MELISA Vitamin D (Cholecalciferol (Vitamin D3) 25 Mcg Tablet) 125 mcg PO DAILY [facility] Last Admin: 07/27/24 08:20 Dose: 125 mcg Documented By: MELISA Vortioxetine (Vortioxetine Hydrobromide 20 Mg Tablet) 20 mg PO DAILY [facility] Last Admin: 07/27/24 08:18 Dose: 20 mg Documented By: MELISA Labs 07/28/24 05:23 07/28/24 05:23 Labs: Laboratory Results - last 24 hr 07/27/24 07/27/24 07/27/24 05:18 05:18 05:18 MCV 83.0 Cancelled MCH 27.7 Cancelled MCHC 33.3 RDW Plt Count MPV Absolute Nucleated RBC Nucleated RBC % (auto) Anion Gap Estim Creat Clear Calc Estimated GFR Random Glucose Calcium 07/27/24 07/27/24 07/27/24 05:18 05:18 05:18 MCV MCH MCHC Cancelled RDW 14.4 Cancelled Plt Count 358 Cancelled MPV 9.8 Absolute Nucleated RBC Nucleated RBC % (auto) Anion Gap Estim Creat Clear Calc Estimated GFR Random Glucose Calcium 07/27/24 07/27/24 07/27/24 05:18 05:18 05:18 MCV MCH MCHC RDW Plt Count MPV Cancelled Absolute Nucleated RBC 0.000 Cancelled Nucleated RBC % (auto) 0.0 Cancelled Anion Gap 12 Estim Creat Clear Calc 117.8 Estimated GFR > 60 Random Glucose 83 Calcium 8.4 Procedures Date of Service Date of Service: 07/29/24 Progress Note: A&P Assessment and plan (1) Constipation: Status: Acute Assessment and Plan: Flexible sigmoidoscopy yesterday does not show obstruction although the sigmoid seems to have some edema She is depressed about her chronic GI issues and says that this has been affecting her marriage She was asking about colostomy I told her I am uncertain as to the benefit to her Her pain issues may be multifactorial I also describes her risks of having a colostomy as well as the procedure itself I will start her on Colace 100 mg b.i.d. Time Spent With Patient Time: Total time managing care of this patient today ____ minutes. Quality Stroke Does the patient have a stroke diagnosis?: No VTE Prior VTE?: No VTE Risk Level:: Medical - moderate - high VTE Device Contraindication: N/A - Device Ordered VTE Drug Contraindication: Treatment Not Indicated
--- NOTE | 2024-07-27 09:20 | P.PNIM_ITS ---
Subjective Subjective Date of Service: 07/27/24 Interval History: abd pain Physical Exam 2 Vital Signs: Vital Signs: Last Vital Signs Temp 97.2 F 07/27/24 07:13 Pulse 91 07/27/24 07:13 Resp 16 07/27/24 07:13 BP 107/53 L 07/27/24 07:13 Pulse Ox 93 07/27/24 07:13 O2 Del Method Room Air 07/27/24 07:13 BMI result Body Mass Index 39.3 Const: Other: Seems depressed General: no acute distress Resp: Effort & Inspection: normal respiratory effort Cardio: Rate: regular rate GI: Other: Obese, soft, mild diffuse tenderness with no guarding or rebound Objective Data Active Medications Acetaminophen (Acetaminophen 325 Mg Tablet) 975 mg PO Q6H PRN PRN Reason: Pain, Mild 1-3,fever,headache Calcium Carbonate (Calcium Carbonate 750 Mg Tab.Chew) 750 mg PO Q4H PRN PRN Reason: Heartburn Clonazepam (Clonazepam 1 Mg Tablet) 1 mg PO TID [facility] Last Admin: 07/27/24 08:20 Dose: 1 mg Documented By: MELISA Docusate Sodium (Docusate Sodium 100 Mg Capsule) 100 mg PO BID [facility] Enoxaparin Sodium (Enoxaparin Sodium 40 Mg/0.4 Ml Syringe) 40 mg SUBCUT Q24H [facility] Last Admin: 07/27/24 08:20 Dose: 40 mg Documented By: MELISA Famotidine (Famotidine 20 Mg Tablet) 20 mg PO BID [facility] Last Admin: 07/27/24 08:18 Dose: 20 mg Documented By: MELISA Fluticasone Propionate (Fluticasone Propionate Nasal 16 Gm [place]) 2 spray NOSTRIL-B DAILY PRN PRN Reason: Allergy Symptoms Last Admin: 07/26/24 08:31 Dose: 2 spray Documented By: DEJUAN Hydrocortisone (Hydrocortisone 2.5 % Rectal Cr 30 Gm Tube) 1 appl LA BID [facility] Last Admin: 07/27/24 08:21 Dose: 1 appl Documented By: MELISA Hydromorphone HCl (Hydromorphone Hcl 1 Mg/Ml Syringe) 0.5 mg IVPUSH Q4H PRN; Protocol PRN Reason: Pain, Severe (Pain Scale 7-10) Last Admin: 07/27/24 08:18 Dose: 0.5 mg Documented By: MELISA Hydroxyzine HCl (Hydroxyzine Hcl 25 Mg Tablet) 25 mg PO BEDTIME [facility] Last Admin: 07/26/24 22:08 Dose: 25 mg Documented By: JHON Lactated Ringer's (Lr) 1,000 mls @ 80 mls/hr IVCONT .[id number] [facility] Last Admin: 07/27/24 05:21 Dose: 80 mls/hr Documented By: JHON Ketorolac Tromethamine (Ketorolac Tromethamine 30 Mg/Ml Vial) 30 mg IVPUSH Q6H PRN PRN Reason: Pain, Moderate(Pain Scale 4-6) Stop: 07/30/24 23:09 Last Admin: 07/27/24 05:26 Dose: 30 mg Documented By: JHON Lamotrigine (Lamotrigine 100 Mg Tablet) 200 mg PO DAILY [facility] Last Admin: 07/27/24 08:19 Dose: 200 mg Documented By: MELISA Lamotrigine (Lamotrigine 25 Mg Tablet) 50 mg PO BEDTIME [facility] Last Admin: 07/26/24 21:11 Dose: 50 mg Documented By: JHON Magnesium Hydroxide (Milk Of Magnesia 30 Ml Oral.Susp) 30 ml PO DAILY PRN PRN Reason: Constipation Magnesium Hydroxide (Milk Of Magnesia 30 Ml Oral.Susp) 10 ml PO DAILY PRN PRN Reason: constipation Melatonin (Melatonin 3 Mg Tablet) 6 mg PO BEDTIME PRN PRN Reason: Insomnia Mirabegron (Mirabegron 50 Mg Tab.Er.24h) 50 mg PO DAILY [facility] Last Admin: 07/27/24 08:18 Dose: 50 mg Documented By: MELISA Omeprazole (Omeprazole 20 Mg Capsule.Dr) 20 mg PO DAILY@0630 [facility] Last Admin: 07/27/24 05:20 Dose: 20 mg Documented By: JHON Ondansetron HCl (Ondansetron Hcl 4 Mg/2 Ml Vial) 4 mg IVPUSH Q8H PRN PRN Reason: Nausea and Vomiting Last Admin: 07/26/24 09:33 Dose: 4 mg Documented By: MELISA Sodium Chloride (0.9 % Sodium Chloride Flush 3 Ml Syringe) 3 ml IVFLUSH QSHIFT [facility] Last Admin: 07/27/24 07:01 Dose: Not Given Documented By: MELISA Non-Admin Reason: IV Running Tamsulosin HCl (Tamsulosin Hcl 0.4 Mg Capsule) 0.4 mg PO DAILY [facility] Last Admin: 07/27/24 08:19 Dose: 0.4 mg Documented By: MELISA Valacyclovir HCl (Valacyclovir Hcl 500 Mg Tablet) 500 mg PO DAILY [facility] Last Admin: 07/27/24 08:19 Dose: 500 mg Documented By: MELISA Vitamin D (Cholecalciferol (Vitamin D3) 25 Mcg Tablet) 125 mcg PO DAILY [facility] Last Admin: 07/27/24 08:20 Dose: 125 mcg Documented By: MELISA Vortioxetine (Vortioxetine Hydrobromide 20 Mg Tablet) 20 mg PO DAILY [facility] Last Admin: 07/27/24 08:18 Dose: 20 mg Documented By: MELISA Labs 07/27/24 05:18 07/27/24 05:18 Labs: Laboratory Results - last 24 hr 07/27/24 07/27/24 07/27/24 05:18 05:18 05:18 MCV 83.0 Cancelled MCH 27.7 Cancelled MCHC 33.3 RDW Plt Count MPV Absolute Nucleated RBC Nucleated RBC % (auto) Anion Gap Estim Creat Clear Calc Estimated GFR Random Glucose Calcium 07/27/24 07/27/24 07/27/24 05:18 05:18 05:18 MCV MCH MCHC Cancelled RDW 14.4 Cancelled Plt Count 358 Cancelled MPV 9.8 Absolute Nucleated RBC Nucleated RBC % (auto) Anion Gap Estim Creat Clear Calc Estimated GFR Random Glucose Calcium 07/27/24 07/27/24 07/27/24 05:18 05:18 05:18 MCV MCH MCHC RDW Plt Count MPV Cancelled Absolute Nucleated RBC 0.000 Cancelled Nucleated RBC % (auto) 0.0 Cancelled Anion Gap 12 Estim Creat Clear Calc 117.8 Estimated GFR > 60 Random Glucose 83 Calcium 8.4 Assessment and Plan (1) Obesity, Class II, BMI 35-39.9: Status: Acute Plan 43F PMH morbid obesity, occipital neuralgia, IBS, interstitial cystitis, GERD, anxiety, depression presented with abdominal pain and constipation' Constipation abdominal pain Noted to have narrowing of sigmoid on imaging - sigmoidoscopy revealed some narrowing but nonobstructive, biopsies taken recommendations to start topical steroid General surgery and GI following will advance to clears Mood disorder Continue Lamictal, Klonopin Morbid obesity Weight loss recommended DVT prophylaxis-Lovenox Full code reason for continued hospitalization: Abdominal pain, not tolerating po Quality Stroke Does the patient have a stroke diagnosis?: No VTE Prior VTE?: No VTE Risk Level:: Medical - moderate - high VTE Device Contraindication: N/A - Device Ordered VTE Drug Contraindication: Treatment Not Indicated
[2024-07-27] MEDS: Docusate Sodium 100 MG CAPSULE PO ×2 (09:40→19:49)
[2024-07-27] MEDS: Fluticasone Propionate Nasal 16 GM SPRAY 2 SPRAY NOSTRIL-B (09:40)
--- NOTE | 2024-07-27 10:56 | P.PNGI_ITS ---
Subjective Subjective Date of Service: 07/27/24 Interval History: Seen at bedside. Has not received the hydrocort enemas yet. Hydrocort cream Rxed instead. Spoke to pharmacy operations specialist, will be ordering as urgent today and getting to patient. Pt herself remains concerned re change in bowel habits since CCY. She had discussed the same with surg as well. Reviewed, that will address acute issues of severe constipation first and can then review longitudinal mgmt as outpatient Critical Care Time (minutes): 0 Physical Exam 2 Vital Signs: Vital Signs: Last Vital Signs Temp 97.2 F 07/27/24 07:13 Pulse 91 07/27/24 07:13 Resp 16 07/27/24 07:13 BP 107/53 L 07/27/24 07:13 Pulse Ox 93 07/27/24 07:13 O2 Del Method Room Air 07/27/24 07:13 BMI result Body Mass Index 39.3 No apparent distress Nonicteric Abdomen soft, distended though better than yest, not as tender today Alert and oriented x3, normal gait Objective Data Labs 07/27/24 05:18 07/27/24 05:18 Labs: Laboratory Results - last 24 hr 07/27/24 07/27/24 07/27/24 05:18 05:18 05:18 WBC 7.4 Cancelled RBC 4.23 Cancelled Hgb 11.7 L Hct MCV MCH MCHC RDW Plt Count MPV Absolute Nucleated RBC Nucleated RBC % (auto) Sodium Potassium Chloride Carbon Dioxide Anion Gap BUN Creatinine Estim Creat Clear Calc Estimated GFR Random Glucose Calcium 07/27/24 07/27/24 07/27/24 05:18 05:18 05:18 WBC RBC Hgb Cancelled Hct 35.1 L Cancelled MCV 83.0 Cancelled MCH 27.7 MCHC RDW Plt Count MPV Absolute Nucleated RBC Nucleated RBC % (auto) Sodium Potassium Chloride Carbon Dioxide Anion Gap BUN Creatinine Estim Creat Clear Calc Estimated GFR Random Glucose Calcium 07/27/24 07/27/24 07/27/24 05:18 05:18 05:18 WBC RBC Hgb Hct MCV MCH Cancelled MCHC 33.3 Cancelled RDW 14.4 Cancelled Plt Count 358 MPV Absolute Nucleated RBC Nucleated RBC % (auto) Sodium Potassium Chloride Carbon Dioxide Anion Gap BUN Creatinine Estim Creat Clear Calc Estimated GFR Random Glucose Calcium 07/27/24 07/27/24 07/27/24 05:18 05:18 05:18 WBC RBC Hgb Hct MCV MCH MCHC RDW Plt Count Cancelled MPV 9.8 Cancelled Absolute Nucleated RBC 0.000 Cancelled Nucleated RBC % (auto) 0.0 Sodium Potassium Chloride Carbon Dioxide Anion Gap BUN Creatinine Estim Creat Clear Calc Estimated GFR Random Glucose Calcium 07/27/24 05:18 WBC RBC Hgb Hct MCV MCH MCHC RDW Plt Count MPV Absolute Nucleated RBC Nucleated RBC % (auto) Cancelled Sodium 137 Potassium 4.0 Chloride 101 Carbon Dioxide 28 Anion Gap 12 BUN 12 Creatinine 0.73 Estim Creat Clear Calc 117.8 Estimated GFR > 60 Random Glucose 83 Calcium 8.4 Procedures Date of Service Date of Service: 07/27/24 Progress Note: A&P Assessment and plan (1) Colon wall thickening: Status: Acute (2) Proctosigmoiditis: Status: Acute Plan Flex sig with mucosal changes in rectum and distal sigmoid assoc with colon wall edema and functional narrowing. No obv stricture. Bx pending. Plan: - trial of hydrocort 100mg/60ml enema -- being ordered as above -- to be taken x 14 days total - Diet as per surgery Time Spent With Patient Time: Total time managing care of this patient today ____ minutes. Quality Stroke Does the patient have a stroke diagnosis?: No VTE Prior VTE?: No VTE Risk Level:: Medical - moderate - high VTE Device Contraindication: N/A - Device Ordered VTE Drug Contraindication: Treatment Not Indicated
[2024-07-27 16:00] VITALS: BP 116/58; PULSE 91; RESP 16; TEMP 36.6; O2SAT 96
[2024-07-27] MEDS: HYDROCORTISONE 100 MG/60 ML 60 EACH PR (17:47)
[2024-07-27 19:06] VITALS: BP 140/78; PULSE 99; RESP 18; TEMP 36.4; O2SAT 97
[2024-07-27] MEDS: lamoTRIgine 25 MG TABLET 50 MG PO (19:48)
[2024-07-27] MEDS: hydrOXYzine HCL 25 MG TABLET PO (19:48)
[2024-07-28] MEDS: HYDROmorphone HCl 1 MG/ML SYRINGE 0.5 MG IVPUSH ×5 (01:54→23:09)
[2024-07-28] MEDS: Lactated Ringers 1,000 ML 80 ML IVCONT ×2 (04:42→18:06)
[2024-07-28] MEDS: Omeprazole 20 MG CAPSULE.DR PO (04:42)
[2024-07-28] MEDS: ondansetron HCL 4 MG/2 ML VIAL IVPUSH ×2 (04:48→19:34)
--- NOTE | 2024-07-28 04:48 | MHC.PIE ---
p; pt c/o pain 12/10 abd. note prn dilaudid q4 given at 0154 i; dr villafana notified, ok to give early dose prn dilaudid e; will cont to monitor
[2024-07-28 07:09] LABS: Hematocrit 35.8 % (37.0-47.0); Hemoglobin 11.7 g/dl (12.0-16.0); Mean Corpuscular HGB Conc 32.7 g/dl (31.0-35.0); Mean Corpuscular Hemoglobin 27.1 pg (27.0-33.0); Mean Corpuscular Volume 83.1 fL (80.0-98.0); Platelet Count 381 X10*3/uL (160-400); Red Blood Count 4.31 X10*6/uL (4.20-5.50); Red Cell Distribution Width 13.9 % (11.0-16.0)
[2024-07-28 07:16] LABS: Anion Gap 11 (12-20); Blood Urea Nitrogen 5 mg/dL (9-16); Calcium 8.8 mg/dL (8.4-10.2); Carbon Dioxide 27 mmol/L (22-29); Chloride 102 mmol/L (96-108); Creatinine Clr Calc Pharmacy 132.3; Estimated Glomerular Filt Rate > 60; Glucose Random 81 mg/dL (60-115); Sodium 136 mmol/L (135-145)
[2024-07-28 07:37] VITALS: BP 109/55; PULSE 89; RESP 16; TEMP 36.1; O2SAT 96
--- NOTE | 2024-07-28 07:46 | HO.POSTANES ---
Post Anesthesia Evaluation Post Anesthesia Evaluation Date of Service: 07/28/24 Vital Signs: Vital Signs Temp Pulse Resp BP Pulse Ox O2 Del Method 07/28/24 07:37 96.9 F 89 16 109/55 L 96 Room Air Anesthesia: TIVA Mental Status: Awake Pain Control: Satisfactory Nausea/Vomiting: None Hydration: Adequate Anesthesia-Related Issues: No Anes. Related Issues
--- NOTE | 2024-07-28 07:50 | HO.PM.IMPN ---
Subjective Subjective Date of Service: 07/28/24 Interval History: abd pain Physical Exam Vital Signs: Vital Signs: Last Vital Signs Temp 96.9 F 07/28/24 07:37 Pulse 89 07/28/24 07:37 Resp 16 07/28/24 07:37 BP 109/55 L 07/28/24 07:37 Pulse Ox 96 07/28/24 07:37 O2 Del Method Room Air 07/28/24 07:37 BMI result Body Mass Index 39.3 No apparent distress Nonicteric Abdomen soft, distended though better than yest, not as tender today Alert and oriented x3, normal gait Objective Data Active Medications Acetaminophen (Acetaminophen 325 Mg Tablet) 975 mg PO Q6H PRN PRN Reason: Pain, Mild 1-3,fever,headache Calcium Carbonate (Calcium Carbonate 750 Mg Tab.Chew) 750 mg PO Q4H PRN PRN Reason: Heartburn Clonazepam (Clonazepam 1 Mg Tablet) 1 mg PO TID [facility] Last Admin: 07/27/24 19:48 Dose: 1 mg Documented By: MARY Docusate Sodium (Docusate Sodium 100 Mg Capsule) 100 mg PO BID [facility] Last Admin: 07/27/24 19:49 Dose: 100 mg Documented By: MARY Enoxaparin Sodium (Enoxaparin Sodium 40 Mg/0.4 Ml Syringe) 40 mg SUBCUT Q24H [facility] Last Admin: 07/27/24 08:20 Dose: 40 mg Documented By: MELISA Famotidine (Famotidine 20 Mg Tablet) 20 mg PO BID [facility] Last Admin: 07/27/24 19:48 Dose: 20 mg Documented By: MARY Fluticasone Propionate (Fluticasone Propionate Nasal 16 Gm [place]) 2 spray NOSTRIL-B DAILY PRN PRN Reason: Allergy Symptoms Last Admin: 07/27/24 09:40 Dose: 2 spray Documented By: MELISA Hydromorphone HCl (Hydromorphone Hcl 1 Mg/Ml Syringe) 0.5 mg IVPUSH Q4H PRN; Protocol PRN Reason: Pain, Severe (Pain Scale 7-10) Last Admin: 07/28/24 04:41 Dose: 0.5 mg Documented By: MARY Comments: early dose ok per md see note Hydroxyzine HCl (Hydroxyzine Hcl 25 Mg Tablet) 25 mg PO BEDTIME [facility] Last Admin: 07/27/24 19:48 Dose: 25 mg Documented By: MARY Lactated Ringer's (Lr) 1,000 mls @ 80 mls/hr IVCONT .[id number] [facility] Last Admin: 07/28/24 04:42 Dose: 80 mls/hr Documented By: MARY Ketorolac Tromethamine (Ketorolac Tromethamine 30 Mg/Ml Vial) 30 mg IVPUSH Q6H PRN PRN Reason: Pain, Moderate(Pain Scale 4-6) Stop: 07/30/24 23:09 Last Admin: 07/27/24 19:44 Dose: 30 mg Documented By: MARY Comments: given per pt request Lamotrigine (Lamotrigine 100 Mg Tablet) 200 mg PO DAILY [facility] Last Admin: 07/27/24 08:19 Dose: 200 mg Documented By: MELISA Lamotrigine (Lamotrigine 25 Mg Tablet) 50 mg PO BEDTIME [facility] Last Admin: 07/27/24 19:48 Dose: 50 mg Documented By: MARY Magnesium Hydroxide (Milk Of Magnesia 30 Ml Oral.Susp) 30 ml PO DAILY PRN PRN Reason: Constipation Magnesium Hydroxide (Milk Of Magnesia 30 Ml Oral.Susp) 10 ml PO DAILY PRN PRN Reason: constipation Melatonin (Melatonin 3 Mg Tablet) 6 mg PO BEDTIME PRN PRN Reason: Insomnia Mirabegron (Mirabegron 50 Mg Tab.Er.24h) 50 mg PO DAILY [facility] Last Admin: 07/27/24 08:18 Dose: 50 mg Documented By: MELISA Non-Formulary Medication (Hydrocortisone Recal Suspension 100 Mg/ 60 Ml) 60 ml [place] DAILY@1700 [facility] Last Admin: 07/27/24 17:47 Dose: 60 ml Documented By: MELISA Omeprazole (Omeprazole 20 Mg Capsule.Dr) 20 mg PO DAILY@0630 [facility] Last Admin: 07/28/24 04:42 Dose: 20 mg Documented By: MARY Ondansetron HCl (Ondansetron Hcl 4 Mg/2 Ml Vial) 4 mg IVPUSH Q8H PRN PRN Reason: Nausea and Vomiting Last Admin: 07/28/24 04:48 Dose: 4 mg Documented By: MARY Sodium Chloride (0.9 % Sodium Chloride Flush 3 Ml Syringe) 3 ml IVFLUSH QSHIFT [facility] Last Admin: 07/27/24 19:49 Dose: Not Given Documented By: MARY Non-Admin Reason: IV Running Tamsulosin HCl (Tamsulosin Hcl 0.4 Mg Capsule) 0.4 mg PO DAILY [facility] Last Admin: 07/27/24 08:19 Dose: 0.4 mg Documented By: MELISA Valacyclovir HCl (Valacyclovir Hcl 500 Mg Tablet) 500 mg PO DAILY [facility] Last Admin: 07/27/24 08:19 Dose: 500 mg Documented By: MELISA Vitamin D (Cholecalciferol (Vitamin D3) 25 Mcg Tablet) 125 mcg PO DAILY [facility] Last Admin: 07/27/24 08:20 Dose: 125 mcg Documented By: MELISA Vortioxetine (Vortioxetine Hydrobromide 20 Mg Tablet) 20 mg PO DAILY [facility] Last Admin: 07/27/24 08:18 Dose: 20 mg Documented By: MELISA Labs 07/28/24 05:23 07/28/24 05:23 Labs: Laboratory Results - last 24 hr 07/28/24 05:23 MCV 83.1 MCH 27.1 MCHC 32.7 RDW 13.9 Plt Count 381 MPV 10.0 Absolute Nucleated RBC 0.000 Nucleated RBC % (auto) 0.0 Anion Gap 11 L Estim Creat Clear Calc 132.3 Estimated GFR > 60 Random Glucose 81 Calcium 8.8 Assessment and Plan (1) Obesity, Class II, BMI 35-39.9: Status: Acute Plan 43F PMH morbid obesity, occipital neuralgia, IBS, interstitial cystitis, GERD, anxiety, depression presented with abdominal pain and constipation' Constipation abdominal pain Noted to have narrowing of sigmoid on imaging - sigmoidoscopy revealed some narrowing but nonobstructive, biopsies taken recommendations to suppository steroids General surgery and GI following cotninue clears Mood disorder Continue Lamictal, Klonopin Morbid obesity Weight loss recommended DVT prophylaxis-Lovenox Full code reason for continued hospitalization: Abdominal pain, not tolerating po Quality Stroke Does the patient have a stroke diagnosis?: No VTE Prior VTE?: No VTE Risk Level:: Medical - moderate - high VTE Device Contraindication: N/A - Device Ordered VTE Drug Contraindication: Treatment Not Indicated
--- NOTE | 2024-07-28 07:57 | PM.PNGS ---
Subjective Subjective Date of Service: 07/28/24 <Elda Blackburn PA-C - Last Filed: 07/28/24 08:10> 07/28/24 <Jesus Allen MD - Last Filed: 07/28/24 11:59> Interval history: Reported nausea following broth yesterday. Still no BM, significant flatus. Continued right sided discomfort. Reports walking once yesterday. Continue to ask about colon resection, colostomy. Had hydrocortisone enema yesterday. <Elda Blackburn PA-C - Last Filed: 07/28/24 08:10> Physical Exam Vital Signs: Vital Signs: Last Vital Signs Temp 96.9 F 07/28/24 07:37 Pulse 89 07/28/24 07:37 Resp 16 07/28/24 07:37 BP 109/55 L 07/28/24 07:37 Pulse Ox 96 07/28/24 07:37 O2 Del Method Room Air 07/28/24 07:37 BMI result Body Mass Index 39.3 <Elda Blackburn PA-C - Last Filed: 07/28/24 08:10> Const: General: comfortable, no acute distress and alert <Elda Blackburn PA-C - Last Filed: 07/28/24 08:10> Orientation/consciousness: patient oriented x3 <Elda Blackburn PA-C - Last Filed: 07/28/24 08:10> Resp: Effort & Inspection: normal respiratory effort <Elda Blackburn PA-C - Last Filed: 07/28/24 08:10> GI: Other: corpulent abdomen mild diffuse tenderness, increased on right side, no peritoneal signs <Elda Blackburn PA-C - Last Filed: 07/28/24 08:10> Inspection: No distended <DAVID Lambert Last Filed: 07/28/24 08:10> Palpation (GI): Soft to palpation <DAVID Lambert Last Filed: 07/28/24 08:10> Skin: General skin exam: no rashes or lesions noted <DAVID Lambert Last Filed: 07/28/24 08:10> Neuro: General: patient oriented x3 and moves all extremities <Elda Blackburn PA-C - Last Filed: 07/28/24 08:10> Objective Data Active Medications Acetaminophen (Acetaminophen 325 Mg Tablet) 975 mg PO Q6H PRN PRN Reason: Pain, Mild 1-3,fever,headache Calcium Carbonate (Calcium Carbonate 750 Mg Tab.Chew) 750 mg PO Q4H PRN PRN Reason: Heartburn Clonazepam (Clonazepam 1 Mg Tablet) 1 mg PO TID [facility] Last Admin: 07/27/24 19:48 Dose: 1 mg Documented By: MARY Docusate Sodium (Docusate Sodium 100 Mg Capsule) 100 mg PO BID [facility] Last Admin: 07/27/24 19:49 Dose: 100 mg Documented By: MARY Enoxaparin Sodium (Enoxaparin Sodium 40 Mg/0.4 Ml Syringe) 40 mg SUBCUT Q24H [facility] Last Admin: 07/27/24 08:20 Dose: 40 mg Documented By: MELISA Famotidine (Famotidine 20 Mg Tablet) 20 mg PO BID [facility] Last Admin: 07/27/24 19:48 Dose: 20 mg Documented By: MARY Fluticasone Propionate (Fluticasone Propionate Nasal 16 Gm [place]) 2 spray NOSTRIL-B DAILY PRN PRN Reason: Allergy Symptoms Last Admin: 07/27/24 09:40 Dose: 2 spray Documented By: MELISA Hydromorphone HCl (Hydromorphone Hcl 1 Mg/Ml Syringe) 0.5 mg IVPUSH Q4H PRN; Protocol PRN Reason: Pain, Severe (Pain Scale 7-10) Last Admin: 07/28/24 04:41 Dose: 0.5 mg Documented By: MARY Comments: early dose ok per md see note Hydroxyzine HCl (Hydroxyzine Hcl 25 Mg Tablet) 25 mg PO BEDTIME [facility] Last Admin: 07/27/24 19:48 Dose: 25 mg Documented By: MARY Lactated Ringer's (Lr) 1,000 mls @ 80 mls/hr IVCONT .[id number] [facility] Last Admin: 07/28/24 04:42 Dose: 80 mls/hr Documented By: MARY Ketorolac Tromethamine (Ketorolac Tromethamine 30 Mg/Ml Vial) 30 mg IVPUSH Q6H PRN PRN Reason: Pain, Moderate(Pain Scale 4-6) Stop: 07/30/24 23:09 Last Admin: 07/27/24 19:44 Dose: 30 mg Documented By: MARY Comments: given per pt request Lamotrigine (Lamotrigine 100 Mg Tablet) 200 mg PO DAILY [facility] Last Admin: 07/27/24 08:19 Dose: 200 mg Documented By: MELISA Lamotrigine (Lamotrigine 25 Mg Tablet) 50 mg PO BEDTIME [facility] Last Admin: 07/27/24 19:48 Dose: 50 mg Documented By: MARY Magnesium Hydroxide (Milk Of Magnesia 30 Ml Oral.Susp) 30 ml PO DAILY PRN PRN Reason: Constipation Magnesium Hydroxide (Milk Of Magnesia 30 Ml Oral.Susp) 10 ml PO DAILY PRN PRN Reason: constipation Melatonin (Melatonin 3 Mg Tablet) 6 mg PO BEDTIME PRN PRN Reason: Insomnia Mirabegron (Mirabegron 50 Mg Tab.Er.24h) 50 mg PO DAILY [facility] Last Admin: 07/27/24 08:18 Dose: 50 mg Documented By: MELISA Non-Formulary Medication (Hydrocortisone Recal Suspension 100 Mg/ 60 Ml) 60 ml [place] DAILY@1700 [facility] Last Admin: 07/27/24 17:47 Dose: 60 ml Documented By: MELISA Omeprazole (Omeprazole 20 Mg Capsule.Dr) 20 mg PO DAILY@0630 [facility] Last Admin: 07/28/24 04:42 Dose: 20 mg Documented By: MARY Ondansetron HCl (Ondansetron Hcl 4 Mg/2 Ml Vial) 4 mg IVPUSH Q8H PRN PRN Reason: Nausea and Vomiting Last Admin: 07/28/24 04:48 Dose: 4 mg Documented By: MARY Sodium Chloride (0.9 % Sodium Chloride Flush 3 Ml Syringe) 3 ml IVFLUSH QSHIFT [facility] Last Admin: 07/27/24 19:49 Dose: Not Given Documented By: MARY Non-Admin Reason: IV Running Tamsulosin HCl (Tamsulosin Hcl 0.4 Mg Capsule) 0.4 mg PO DAILY [facility] Last Admin: 07/27/24 08:19 Dose: 0.4 mg Documented By: MELISA Valacyclovir HCl (Valacyclovir Hcl 500 Mg Tablet) 500 mg PO DAILY [facility] Last Admin: 07/27/24 08:19 Dose: 500 mg Documented By: MELISA Vitamin D (Cholecalciferol (Vitamin D3) 25 Mcg Tablet) 125 mcg PO DAILY [facility] Last Admin: 07/27/24 08:20 Dose: 125 mcg Documented By: MELISA Vortioxetine (Vortioxetine Hydrobromide 20 Mg Tablet) 20 mg PO DAILY [facility] Last Admin: 07/27/24 08:18 Dose: 20 mg Documented By: MELISA <Elda Blackburn PA-C - Last Filed: 07/28/24 08:10> Labs CBC & Chem 7: 07/28/24 05:23 07/28/24 05:23 <Elda Blackburn PA-C - Last Filed: 07/28/24 08:10> Labs: Laboratory Results - last 24 hr 07/28/24 05:23 MCV 83.1 MCH 27.1 MCHC 32.7 RDW 13.9 Plt Count 381 MPV 10.0 Absolute Nucleated RBC 0.000 Nucleated RBC % (auto) 0.0 Anion Gap 11 L Estim Creat Clear Calc 132.3 Estimated GFR > 60 Random Glucose 81 Calcium 8.8 <Elda Blackburn PA-C - Last Filed: 07/28/24 08:10> Procedures Date of Service Date of Service: 07/28/24 <Elda Blackburn PA-C - Last Filed: 07/28/24 08:10> 07/28/24 <Jesus Allen MD - Last Filed: 07/28/24 11:59> Progress Note: A&P Assessment and plan (1) Proctosigmoiditis: Status: Acute <Elda Blackburn PA-C - Last Filed: 07/28/24 08:10> Assessment and Plan: Not much changes regards to overall status Seems depressed Abdomen is soft with tenderness in the right side, no guarding, no rebound Started on steroid enemas On clear liquids I have started her on Colace b.i.d. I had a long discussion with her about findings so far - no obstruction based on sigmoidoscopy Seen and examined independently <Jesus Allen MD - Last Filed: 07/28/24 11:59> (2) IBS (irritable bowel syndrome): Status: Acute <Elda Blackburn PA-C - Last Filed: 07/28/24 08:10> Assessment and Plan: Hx of chronic abd pain, and IBS. CT scan showing gas-filled colon with note of tapering in the sigmoid concern for stricture. Flexible sigmoidoscopy performed which did not show obstruction although the sigmoid seems to have some edema. Started on hydrocortisone enemas by GI. Patient reports continued abd pain and bloating with liquids. Can keep on liquids for now. Encouraged OOB/ambulation to promote GI function, now on colace. PRN straight caths as this may be contributing to her abd discomfort. Again discussed that sigmoid resection, colostomy may not help with her abdominal discomfort and comes with its own risks. Will continue to follow. <Elda Blackburn PA-C - Last Filed: 07/28/24 08:10> Time Spent With Patient Time: Total time managing care of this patient today ____ minutes. <Elda Blackburn PA-C - Last Filed: 07/28/24 08:10> Quality Stroke Does the patient have a stroke diagnosis?: No <Elda Blackburn PA-C - Last Filed: 07/28/24 08:10> VTE Prior VTE?: No <Elda Blackburn PA-C - Last Filed: 07/28/24 08:10> VTE Risk Level:: Medical - moderate - high <DAVDI Lambert Last Filed: 07/28/24 08:10> VTE Device Contraindication: N/A - Device Ordered <DAVID Lambert Last Filed: 07/28/24 08:10> VTE Drug Contraindication: Treatment Not Indicated <Elda Blackburn PA-C - Last Filed: 07/28/24 08:10>
[2024-07-28] MEDS: 0.9 % Sodium Chloride Flush 3 ML SYRINGE IVFLUSH ×3 (08:40→19:34)
[2024-07-28] MEDS: valACYclovir HCL 500 MG TABLET PO (08:41)
[2024-07-28] MEDS: Docusate Sodium 100 MG CAPSULE PO ×2 (08:41→19:34)
[2024-07-28] MEDS: Cholecalciferol (Vitamin D3) 25 MCG TABLET 125 MCG PO (08:41)
[2024-07-28] MEDS: lamoTRIgine 100 MG TABLET 200 MG PO (08:41)
[2024-07-28] MEDS: Tamsulosin HCL 0.4 MG CAPSULE PO (08:41)
[2024-07-28] MEDS: clonazePAM 1 MG TABLET PO ×2 (08:41→19:34)
[2024-07-28] MEDS: Famotidine 20 MG TABLET PO ×2 (08:42→19:34)
[2024-07-28] MEDS: Vortioxetine Hydrobromide 20 MG TABLET PO (08:42)
[2024-07-28] MEDS: Mirabegron 50 MG TAB.ER.24H PO (08:42)
[2024-07-28] MEDS: Enoxaparin Sodium 40 MG/0.4 ML SYRINGE SUBCUT (08:43)
[2024-07-28] MEDS: Milk of Magnesia 30 ML ORAL.SUSP PO (08:46)
[2024-07-28] MEDS: Ketorolac Tromethamine 30 MG/ML VIAL IVPUSH (13:55)
--- NOTE | 2024-07-28 13:56 | MHC.CM.PN ---
Per MD patient not medically cleared for dc. CM will continue to follow.
[2024-07-28 15:41] VITALS: BP 92/52; PULSE 86; RESP 16; TEMP 36.3; O2SAT 94
[2024-07-28] MEDS: 0.9 % Sodium Chloride 500 ML 999 ML IV (15:46)
[2024-07-28 16:32] VITALS: BP 116/60
--- NOTE | 2024-07-28 19:09 | PC.NURSE ---
15:33 MD Mora made aware BP 92/52 manual, 500ml fluid bolus administered. Pt asymptomatic BP recheck after bolus 116/60.
[2024-07-28 19:27] VITALS: BP 104/52; PULSE 98; RESP 18; TEMP 36.6; O2SAT 98
[2024-07-28] MEDS: lamoTRIgine 25 MG TABLET 50 MG PO (19:34)
[2024-07-28] MEDS: hydrOXYzine HCL 25 MG TABLET PO (19:34)
--- NOTE | 2024-07-28 20:53 | MHC.PIE ---
p; pt c/o inability to urinate - note; pt was just in bathroom 1 hr ago and have voided 400. pt asking for straight cath i; pt encouraged to go to bathroom again to try again. p; pt reports unable to urinate. i; bladder scanned for 98 ml e; pt educated on straight cath not needed at this time for 98 ml. pt educated on increased chance for infections with straight cath. will cont to monitor
[2024-07-29] MEDS: Ketorolac Tromethamine 30 MG/ML VIAL IVPUSH ×4 (02:06→23:37)
[2024-07-29 04:00] VITALS: BP 104/49; PULSE 85; RESP 16; TEMP 36.5; O2SAT 96
[2024-07-29] MEDS: Omeprazole 20 MG CAPSULE.DR PO (06:36)
[2024-07-29] MEDS: HYDROmorphone HCl 1 MG/ML SYRINGE 0.5 MG IVPUSH ×3 (06:42→20:55)
[2024-07-29 07:56] VITALS: BP 121/74; PULSE 111; RESP 18; TEMP 36.6; O2SAT 99
[2024-07-29] MEDS: Enoxaparin Sodium 40 MG/0.4 ML SYRINGE SUBCUT (08:32)
[2024-07-29] MEDS: valACYclovir HCL 500 MG TABLET PO (08:33)
[2024-07-29] MEDS: Tamsulosin HCL 0.4 MG CAPSULE PO (08:33)
[2024-07-29] MEDS: Famotidine 20 MG TABLET PO ×2 (08:33→20:53)
[2024-07-29] MEDS: lamoTRIgine 100 MG TABLET 200 MG PO (08:33)
[2024-07-29] MEDS: clonazePAM 1 MG TABLET PO ×3 (08:33→20:53)
[2024-07-29] MEDS: Docusate Sodium 100 MG CAPSULE PO ×2 (08:33→20:53)
[2024-07-29] MEDS: Vortioxetine Hydrobromide 20 MG TABLET PO (08:33)
[2024-07-29] MEDS: Cholecalciferol (Vitamin D3) 25 MCG TABLET 125 MCG PO (08:33)
[2024-07-29] MEDS: Mirabegron 50 MG TAB.ER.24H PO (08:33)
[2024-07-29] MEDS: 0.9 % Sodium Chloride Flush 3 ML SYRINGE IVFLUSH ×2 (08:34→14:34)
[2024-07-29] MEDS: Milk of Magnesia 30 ML ORAL.SUSP PO (08:34)
[2024-07-29 08:53] LABS: Glucose, Whole Blood 85 mg/dL (60-115)
--- NOTE | 2024-07-29 09:17 | P.PNIM_ITS ---
Subjective Subjective Date of Service: 07/29/24 Interval History: wants to try solids but overall feeling worse, cold Physical Exam 2 Vital Signs: Vital Signs: Last Vital Signs Temp 97.8 F 07/29/24 07:56 Pulse 111 H 07/29/24 07:56 Resp 18 07/29/24 07:56 BP 121/74 07/29/24 07:56 Pulse Ox 99 07/29/24 07:56 O2 Del Method Room Air 07/29/24 07:56 BMI result Body Mass Index 39.3 Const: General: comfortable, no acute distress and alert O rientation/consciousness: patient oriented x3 Resp: Effort & Inspection: normal respiratory effort GI: Other: corpulent abdomen mild diffuse tenderness, increased on right side, no peritoneal signs Inspection: No distended Palpation (GI): Soft to palpation Skin: General skin exam: no rashes or lesions noted Neuro: General: patient oriented x3 and moves all extremities Objective Data Active Medications Acetaminophen (Acetaminophen 325 Mg Tablet) 975 mg PO Q6H PRN PRN Reason: Pain, Mild 1-3,fever,headache Calcium Carbonate (Calcium Carbonate 750 Mg Tab.Chew) 750 mg PO Q4H PRN PRN Reason: Heartburn Clonazepam (Clonazepam 1 Mg Tablet) 1 mg PO TID [facility] Last Admin: 07/29/24 08:33 Dose: 1 mg Documented By: MEME Docusate Sodium (Docusate Sodium 100 Mg Capsule) 100 mg PO BID [facility] Last Admin: 07/29/24 08:33 Dose: 100 mg Documented By: MEME Enoxaparin Sodium (Enoxaparin Sodium 40 Mg/0.4 Ml Syringe) 40 mg SUBCUT Q24H [facility] Last Admin: 07/29/24 08:32 Dose: 40 mg Documented By: MEME Famotidine (Famotidine 20 Mg Tablet) 20 mg PO BID [facility] Last Admin: 07/29/24 08:33 Dose: 20 mg Documented By: MEME Fluticasone Propionate (Fluticasone Propionate Nasal 16 Gm [place]) 2 spray NOSTRIL-B DAILY PRN PRN Reason: Allergy Symptoms Last Admin: 07/27/24 09:40 Dose: 2 spray Documented By: MELISA Hydrocortisone (Hydrocortisone 100 Mg/60 Ml [place]) 100 mg [place] DAILY@1700 [facility] Last Admin: 07/28/24 17:15 Dose: Not Given Documented By: MEME Non-Admin Reason: Patient Refused Hydromorphone HCl (Hydromorphone Hcl 1 Mg/Ml Syringe) 0.5 mg IVPUSH Q4H PRN; Protocol PRN Reason: Pain, Severe (Pain Scale 7-10) Last Admin: 07/29/24 06:42 Dose: 0.5 mg Documented By: MARY Hydroxyzine HCl (Hydroxyzine Hcl 25 Mg Tablet) 25 mg PO BEDTIME [facility] Last Admin: 07/28/24 19:34 Dose: 25 mg Documented By: MARY Ketorolac Tromethamine (Ketorolac Tromethamine 30 Mg/Ml Vial) 30 mg IVPUSH Q6H PRN PRN Reason: Pain, Moderate(Pain Scale 4-6) Stop: 07/30/24 23:09 Last Admin: 07/29/24 08:46 Dose: 30 mg Documented By: MEME Lamotrigine (Lamotrigine 100 Mg Tablet) 200 mg PO DAILY [facility] Last Admin: 07/29/24 08:33 Dose: 200 mg Documented By: MEME Lamotrigine (Lamotrigine 25 Mg Tablet) 50 mg PO BEDTIME [facility] Last Admin: 07/28/24 19:34 Dose: 50 mg Documented By: MARY Magnesium Hydroxide (Milk Of Magnesia 30 Ml Oral.Susp) 30 ml PO DAILY PRN PRN Reason: Constipation Last Admin: 07/29/24 08:34 Dose: 30 ml Documented By: MEME Magnesium Hydroxide (Milk Of Magnesia 30 Ml Oral.Susp) 10 ml PO DAILY PRN PRN Reason: constipation Melatonin (Melatonin 3 Mg Tablet) 6 mg PO BEDTIME PRN PRN Reason: Insomnia Mirabegron (Mirabegron 50 Mg Tab.Er.24h) 50 mg PO DAILY [facility] Last Admin: 07/29/24 08:33 Dose: 50 mg Documented By: MEME Omeprazole (Omeprazole 20 Mg Capsule.Dr) 20 mg PO DAILY@0630 [facility] Last Admin: 07/29/24 06:36 Dose: 20 mg Documented By: MARY Ondansetron HCl (Ondansetron Hcl 4 Mg/2 Ml Vial) 4 mg IVPUSH Q8H PRN PRN Reason: Nausea and Vomiting Last Admin: 07/28/24 19:34 Dose: 4 mg Documented By: MARY Sodium Chloride (0.9 % Sodium Chloride Flush 3 Ml Syringe) 3 ml IVFLUSH QSHIFT [facility] Last Admin: 07/29/24 08:34 Dose: 3 ml Documented By: MEME Tamsulosin HCl (Tamsulosin Hcl 0.4 Mg Capsule) 0.4 mg PO DAILY [facility] Last Admin: 07/29/24 08:33 Dose: 0.4 mg Documented By: MEME Valacyclovir HCl (Valacyclovir Hcl 500 Mg Tablet) 500 mg PO DAILY [facility] Last Admin: 07/29/24 08:33 Dose: 500 mg Documented By: MEME Vitamin D (Cholecalciferol (Vitamin D3) 25 Mcg Tablet) 125 mcg PO DAILY [facility] Last Admin: 07/29/24 08:33 Dose: 125 mcg Documented By: MEME Vortioxetine (Vortioxetine Hydrobromide 20 Mg Tablet) 20 mg PO DAILY [facility] Last Admin: 07/29/24 08:33 Dose: 20 mg Documented By: MEME Labs 07/28/24 05:23 07/28/24 05:23 Labs: Laboratory Results - last 24 hr 07/29/24 08:50 POC Glucose 85 Assessment and Plan (1) Obesity, Class II, BMI 35-39.9: Status: Acute Plan 43F PMH morbid obesity, occipital neuralgia, IBS, interstitial cystitis, GERD, anxiety, depression presented with abdominal pain and constipation' Constipation abdominal pain Noted to have narrowing of sigmoid on imaging - sigmoidoscopy revealed some narrowing but nonobstructive, biopsies taken recommendations to suppository steroids General surgery and GI following advance to solids Mood disorder Continue Lamictal, Klonopin Morbid obesity Weight loss recommended DVT prophylaxis-Lovenox Full code reason for continued hospitalization: Abdominal pain, not tolerating po Quality Stroke Does the patient have a stroke diagnosis?: No VTE Prior VTE?: No VTE Risk Level:: Medical - moderate - high VTE Device Contraindication: N/A - Device Ordered VTE Drug Contraindication: Treatment Not Indicated
[2024-07-29 09:53] LABS: Thyroid Stimulating Hormone 0.85 uIU/mL (0.32-4.0)
[2024-07-29 11:19] LABS: Appearance Urine Turbid; Color Urine Yellow; Glucose Urine UA Negative (Negative); Leukocyte Esterase Urine Large (3+) (Negative); Nitrite Urine Negative (Negative); PH 6.5 (5.0-9.0); Specific Gravity - Urine <= 1.005 (1.005-1.025); UMIC TRIGGER UACC YES; Urine Blood Large (3+) (Negative); Urine Ketones Negative (Negative); Urine Protein 100 (2+) mg/dL (Neg-Trace)
[2024-07-29 11:31] LABS: Bacteria Urine 1+ (None Seen); Hyaline Casts Urine 0-2 /LPF (0-2); Squamous Epithelial Cell Urine 0-2 /HPF (0-2); UACC Culture Trigger YES; WBC Urine >50 /HPF (0-5)
[2024-07-29] MEDS: cefTRIAXone sodium 1 GM VIAL IVPUSH (13:19)
--- NOTE | 2024-07-29 14:52 | PC.NURSE ---
08:36 MD Mora made aware pt c/o symptoms such as shaking, and feeling like she cant void. Vital signs stable, 98.5, 119, 143/68, 97% on room air. Pt had just voided 600ML of clear yellow urine. PVR scan 123. Blood suagr 86. 09:35 pt voided approximately 100ML of pink tinged urine. Per MD clean cath urine obtained and sent to lab. See reports for results. Pt started on IVP abx. Pt continues to report abd pain with eating MD Mora made aware, PRN pain medication given throughout shift with mild to good effect. Pt refusing bed alarm, scores as a high fall risk. Pt educated on importance of fall risk precautions and interventions to prevent falls.
[2024-07-29 15:19] VITALS: BP 85/50; PULSE 95; RESP 20; TEMP 36.8; O2SAT 95
[2024-07-29 15:37] VITALS: BP 98/48
--- NOTE | 2024-07-29 15:39 | PM.PNGS ---
Subjective Subjective Date of Service: 07/30/24 Interval history: As per nursing staff, she has had a couple of bowel movements since yesterday The patient remains depressed She says she has had chronic GI problems including abdominal pain for years She also says she has had some urgency with her interstitial cystitis Physical Exam Vital Signs: Vital Signs: Last Vital Signs Temp 98.3 F 07/29/24 15:19 Pulse 95 07/29/24 15:19 Resp 20 07/29/24 15:19 BP 98/48 L 07/29/24 15:37 Pulse Ox 95 07/29/24 15:19 O2 Del Method Room Air 07/29/24 15:19 BMI result Body Mass Index 39.3 Const: Other: Appears depressed General: no acute distress Nutritional Appearance: obese Resp: Effort & Inspection: normal respiratory effort Cardio: Rate: regular rate GI: Other: Obese Palpation (GI): Soft to palpation, no guarding and not rigid Objective Data Active Medications Acetaminophen (Acetaminophen 325 Mg Tablet) 975 mg PO Q6H PRN PRN Reason: Pain, Mild 1-3,fever,headache Calcium Carbonate (Calcium Carbonate 750 Mg Tab.Chew) 750 mg PO Q4H PRN PRN Reason: Heartburn Ceftriaxone Sodium (Ceftriaxone Sodium 1 Gm Vial) 1 gm IVPUSH Q24H ON LICENSE OF [facility] Last Admin: 07/29/24 13:19 Dose: 1 gm Documented By: MEME Clonazepam (Clonazepam 1 Mg Tablet) 1 mg PO TID ON LICENSE OF [facility] Last Admin: 07/29/24 14:33 Dose: 1 mg Documented By: MEME Docusate Sodium (Docusate Sodium 100 Mg Capsule) 100 mg PO BID ON LICENSE OF [facility] Last Admin: 07/29/24 08:33 Dose: 100 mg Documented By: MEME Enoxaparin Sodium (Enoxaparin Sodium 40 Mg/0.4 Ml Syringe) 40 mg SUBCUT Q24H ON LICENSE OF [facility] Last Admin: 07/29/24 08:32 Dose: 40 mg Documented By: MEME Famotidine (Famotidine 20 Mg Tablet) 20 mg PO BID ON LICENSE OF [facility] Last Admin: 07/29/24 08:33 Dose: 20 mg Documented By: MEME Fluticasone Propionate (Fluticasone Propionate Nasal 16 Gm [place]) 2 spray NOSTRIL-B DAILY PRN PRN Reason: Allergy Symptoms Last Admin: 07/27/24 09:40 Dose: 2 spray Documented By: MELISA Hydrocortisone (Hydrocortisone 100 Mg/60 Ml Enema) 100 mg [place] DAILY@1700 ON LICENSE OF [facility] Last Admin: 07/28/24 17:15 Dose: Not Given Documented By: MEME Non-Admin Reason: Patient Refused Hydromorphone HCl (Hydromorphone Hcl 1 Mg/Ml Syringe) 0.5 mg IVPUSH Q4H PRN; Protocol PRN Reason: Pain, Severe (Pain Scale 7-10) Last Admin: 07/29/24 11:06 Dose: 0.5 mg Documented By: MEME Hydroxyzine HCl (Hydroxyzine Hcl 25 Mg Tablet) 25 mg PO BEDTIME ON LICENSE OF [facility] Last Admin: 07/28/24 19:34 Dose: 25 mg Documented By: MARY Ketorolac Tromethamine (Ketorolac Tromethamine 30 Mg/Ml Vial) 30 mg IVPUSH Q6H PRN PRN Reason: Pain, Moderate(Pain Scale 4-6) Stop: 07/30/24 23:09 Last Admin: 07/29/24 14:33 Dose: 30 mg Documented By: MEME Lamotrigine (Lamotrigine 100 Mg Tablet) 200 mg PO DAILY ON LICENSE OF [facility] Last Admin: 07/29/24 08:33 Dose: 200 mg Documented By: MEME Lamotrigine (Lamotrigine 25 Mg Tablet) 50 mg PO BEDTIME ON LICENSE OF [facility] Last Admin: 07/28/24 19:34 Dose: 50 mg Documented By: MARY Magnesium Hydroxide (Milk Of Magnesia 30 Ml Oral.Susp) 30 ml PO DAILY PRN PRN Reason: Constipation Last Admin: 07/29/24 08:34 Dose: 30 ml Documented By: MEME Magnesium Hydroxide (Milk Of Magnesia 30 Ml Oral.Susp) 10 ml PO DAILY PRN PRN Reason: constipation Melatonin (Melatonin 3 Mg Tablet) 6 mg PO BEDTIME PRN PRN Reason: Insomnia Mirabegron (Mirabegron 50 Mg Tab.Er.24h) 50 mg PO DAILY ON LICENSE OF [facility] Last Admin: 07/29/24 08:33 Dose: 50 mg Documented By: MEME Omeprazole (Omeprazole 20 Mg Capsule.Dr) 20 mg PO DAILY@0630 ON LICENSE OF [facility] Last Admin: 07/29/24 06:36 Dose: 20 mg Documented By: MARY Ondansetron HCl (Ondansetron Hcl 4 Mg/2 Ml Vial) 4 mg IVPUSH Q8H PRN PRN Reason: Nausea and Vomiting Last Admin: 07/28/24 19:34 Dose: 4 mg Documented By: MARY Sodium Chloride (0.9 % Sodium Chloride Flush 3 Ml Syringe) 3 ml IVFLUSH QSHIFT ON LICENSE OF [facility] Last Admin: 07/29/24 14:34 Dose: 3 ml Documented By: MEME Tamsulosin HCl (Tamsulosin Hcl 0.4 Mg Capsule) 0.4 mg PO DAILY ON LICENSE OF [facility] Last Admin: 07/29/24 08:33 Dose: 0.4 mg Documented By: MEME Valacyclovir HCl (Valacyclovir Hcl 500 Mg Tablet) 500 mg PO DAILY ON LICENSE OF [facility] Last Admin: 07/29/24 08:33 Dose: 500 mg Documented By: MEME Vitamin D (Cholecalciferol (Vitamin D3) 25 Mcg Tablet) 125 mcg PO DAILY ON LICENSE OF [facility] Last Admin: 07/29/24 08:33 Dose: 125 mcg Documented By: MEME Vortioxetine (Vortioxetine Hydrobromide 20 Mg Tablet) 20 mg PO DAILY ON LICENSE OF [facility] Last Admin: 07/29/24 08:33 Dose: 20 mg Documented By: MEME Labs 07/30/24 08:18 07/30/24 08:18 Labs: Laboratory Results - last 24 hr 07/28/24 07/29/24 07/29/24 05:23 08:50 10:47 POC Glucose 85 TSH 0.85 Urine Color Yellow Urine Appearance Turbid Urine pH 6.5 Ur Specific [place] <= 1.005 Urine Protein 100 (2+) H Urine Glucose (UA) Negative Urine Ketones Negative Urine Blood Large (3+) H Urine Nitrite Negative Ur Leukocyte Esterase Large (3+) H Urine RBC 3-5 H Urine WBC >50 H Ur Squamous Epith Cells 0-2 Urine Bacteria 1+ Hyaline Casts 0-2 Procedures Date of Service Date of Service: 07/30/24 Progress Note: A&P Assessment and plan (1) Intractable abdominal pain: Status: Acute Assessment and Plan: She has a history of chronic constipation along with intermittent severe diarrhea Current workup does not suggest obstruction at this time Flexible sigmoidoscopy showed some edema of the sigmoid without here inflammation nor obstruction She was passing bowel movements Her abdominal issues may be multifactorial including IBS as well as with her interstitial cystitis I had discussions with the about these She should be on a strict regimen of stool softeners She should be following the health services administrator service closely I explained to her that there is no surgical intervention that is necessary at this time Time Spent With Patient Time: Total time managing care of this patient today ____ minutes. Quality Stroke Does the patient have a stroke diagnosis?: No VTE Prior VTE?: No VTE Risk Level:: Medical - moderate - high VTE Device Contraindication: N/A - Device Ordered VTE Drug Contraindication: Treatment Not Indicated
--- NOTE | 2024-07-29 16:08 | PC.NURSE ---
15:40 Md gupta made aware pt automatic BP 80/50, BP recheck with elly device 98/48, pt states she feels sleepy is A&Ox4 alert to voice. New order for LR @ 80ml/hr infusing per mar.
[2024-07-29] MEDS: Lactated Ringers 1,000 ML 80 ML IVCONT (16:13)
--- NOTE | 2024-07-29 16:14 | PC.NURSE ---
12:00 Pt ambulated around the unit with stand by assistance 2x.
[2024-07-29 19:05] VITALS: BP 98/52; PULSE 88; RESP 20; TEMP 36.4; O2SAT 97
[2024-07-29] MEDS: lamoTRIgine 25 MG TABLET 50 MG PO (20:53)
[2024-07-29] MEDS: hydrOXYzine HCL 25 MG TABLET PO (20:53)
[2024-07-30] MEDS: HYDROmorphone HCl 1 MG/ML SYRINGE 0.5 MG IVPUSH ×5 (03:11→23:55)
[2024-07-30 03:40] VITALS: BP 90/46; PULSE 84; RESP 18; TEMP 35.9; O2SAT 94
[2024-07-30] MEDS: Lactated Ringers 1,000 ML 80 ML IVCONT ×2 (04:38→17:20)
[2024-07-30] MEDS: Ketorolac Tromethamine 30 MG/ML VIAL IVPUSH ×3 (05:43→20:23)
[2024-07-30] MEDS: Omeprazole 20 MG CAPSULE.DR PO (05:44)
[2024-07-30 06:45] VITALS: BP 100/54; PULSE 87; RESP 16; TEMP 36.6; O2SAT 96
[2024-07-30] MEDS: Enoxaparin Sodium 40 MG/0.4 ML SYRINGE SUBCUT (08:37)
[2024-07-30] MEDS: Famotidine 20 MG TABLET PO ×2 (08:39→20:14)
[2024-07-30] MEDS: Vortioxetine Hydrobromide 20 MG TABLET PO (08:39)
[2024-07-30] MEDS: Mirabegron 50 MG TAB.ER.24H PO (08:39)
[2024-07-30] MEDS: Cholecalciferol (Vitamin D3) 25 MCG TABLET 125 MCG PO (08:39)
[2024-07-30] MEDS: Tamsulosin HCL 0.4 MG CAPSULE PO (08:39)
[2024-07-30] MEDS: clonazePAM 1 MG TABLET PO ×3 (08:39→20:14)
[2024-07-30] MEDS: lamoTRIgine 100 MG TABLET 200 MG PO (08:39)
[2024-07-30] MEDS: valACYclovir HCL 500 MG TABLET PO (08:39)
[2024-07-30] MEDS: Docusate Sodium 100 MG CAPSULE PO ×2 (08:39→20:14)
[2024-07-30 08:52] LABS: Hemoglobin 11.3 g/dl (12.0-16.0); Mean Corpuscular HGB Conc 32.3 g/dl (31.0-35.0); Mean Corpuscular Volume 83.5 fL (80.0-98.0); Mean Platelet Volume 9.8 fL (9.4-12.3); Platelet Count 334 X10*3/uL (160-400); Red Blood Count 4.19 X10*6/uL (4.20-5.50); Red Cell Distribution Width 14.5 % (11.0-16.0); White Blood Count 7.4 X10*3/uL (4.8-10.8)
[2024-07-30 09:08] LABS: Anion Gap 10 (12-20); Blood Urea Nitrogen 7 mg/dL (9-16); Calcium 8.4 mg/dL (8.4-10.2); Carbon Dioxide 29 mmol/L (22-29); Chloride 104 mmol/L (96-108); Creatinine Clr Calc Pharmacy 116.2; Estimated Glomerular Filt Rate > 60; Glucose Random 108 mg/dL (60-115); Potassium 3.9 mmol/L (3.3-5.1); Sodium 139 mmol/L (135-145)
--- NOTE | 2024-07-30 10:31 | P.PNGS_ITS ---
Subjective Subjective Date of Service: 07/31/24 Interval history: In much better mood this morning Does admit to pain with eating periodically -she says that this is chronic Some issues with urgency of urination Otherwise tolerating diet Physical Exam 2 Vital Signs: Vital Signs: Last Vital Signs Temp 98 F 07/30/24 06:45 Pulse 87 07/30/24 06:45 Resp 16 07/30/24 06:45 BP 100/54 L 07/30/24 06:45 Pulse Ox 96 07/30/24 06:45 O2 Del Method Room Air 07/30/24 06:45 BMI result Body Mass Index 39.3 Const: General: comfortable and no acute distress Nutritional Appearance: o bese Resp: Effort & Inspection: normal respiratory effort Cardio: Rate: regular rate GI: Palpation (GI): Soft to palpation, not firm and no guarding Objective Data Active Medications Acetaminophen (Acetaminophen 325 Mg Tablet) 975 mg PO Q6H PRN PRN Reason: Pain, Mild 1-3,fever,headache Calcium Carbonate (Calcium Carbonate 750 Mg Tab.Chew) 750 mg PO Q4H PRN PRN Reason: Heartburn Ceftriaxone Sodium (Ceftriaxone Sodium 1 Gm Vial) 1 gm IVPUSH Q24H [facility] Last Admin: 07/29/24 13:19 Dose: 1 gm Documented By: MEME Clonazepam (Clonazepam 1 Mg Tablet) 1 mg PO TID [facility] Last Admin: 07/30/24 08:39 Dose: 1 mg Documented By: MAYA Docusate Sodium (Docusate Sodium 100 Mg Capsule) 100 mg PO BID [facility] Last Admin: 07/30/24 08:39 Dose: 100 mg Documented By: MAYA Enoxaparin Sodium (Enoxaparin Sodium 40 Mg/0.4 Ml Syringe) 40 mg SUBCUT Q24H [facility] Last Admin: 07/30/24 08:37 Dose: 40 mg Documented By: MAYA Famotidine (Famotidine 20 Mg Tablet) 20 mg PO BID [facility] Last Admin: 07/30/24 08:39 Dose: 20 mg Documented By: MAYA Fluticasone Propionate (Fluticasone Propionate Nasal 16 Gm [place]) 2 spray NOSTRIL-B DAILY PRN PRN Reason: Allergy Symptoms Last Admin: 07/27/24 09:40 Dose: 2 spray Documented By: MELISA Hydrocortisone (Hydrocortisone 100 Mg/60 Ml Enema) 100 mg [place] DAILY@1700 [facility] Last Admin: 07/29/24 16:13 Dose: Not Given Documented By: MEME Non-Admin Reason: Patient Refused Hydromorphone HCl (Hydromorphone Hcl 1 Mg/Ml Syringe) 0.5 mg IVPUSH Q4H PRN; Protocol PRN Reason: Pain, Severe (Pain Scale 7-10) Last Admin: 07/30/24 09:25 Dose: 0.5 mg Documented By: ALLAN Hydroxyzine HCl (Hydroxyzine Hcl 25 Mg Tablet) 25 mg PO BEDTIME [facility] Last Admin: 07/29/24 20:53 Dose: 25 mg Documented By: ANTOINGalina Lactated Ringer's (Lr) 1,000 mls @ 80 mls/hr IVCONT .[id number] [facility] Last Admin: 07/30/24 04:38 Dose: 80 mls/hr Documented By: YOLANDA Ketorolac Tromethamine (Ketorolac Tromethamine 30 Mg/Ml Vial) 30 mg IVPUSH Q6H PRN PRN Reason: Pain, Moderate(Pain Scale 4-6) Stop: 07/30/24 23:09 Last Admin: 07/30/24 05:43 Dose: 30 mg Documented By: YOLANDA Lamotrigine (Lamotrigine 100 Mg Tablet) 200 mg PO DAILY [facility] Last Admin: 07/30/24 08:39 Dose: 200 mg Documented By: MAYA Lamotrigine (Lamotrigine 25 Mg Tablet) 50 mg PO BEDTIME [facility] Last Admin: 07/29/24 20:53 Dose: 50 mg Documented By: VALENTINA Magnesium Hydroxide (Milk Of Magnesia 30 Ml Oral.Susp) 30 ml PO DAILY PRN PRN Reason: Constipation Last Admin: 07/29/24 08:34 Dose: 30 ml Documented By: MEME Magnesium Hydroxide (Milk Of Magnesia 30 Ml Oral.Susp) 10 ml PO DAILY PRN PRN Reason: constipation Melatonin (Melatonin 3 Mg Tablet) 6 mg PO BEDTIME PRN PRN Reason: Insomnia Mirabegron (Mirabegron 50 Mg Tab.Er.24h) 50 mg PO DAILY [facility] Last Admin: 07/30/24 08:39 Dose: 50 mg Documented By: MAYA Omeprazole (Omeprazole 20 Mg Capsule.) 20 mg PO DAILY@0630 [facility] Last Admin: 07/30/24 05:44 Dose: 20 mg Documented By: YOLANDA Ondansetron HCl (Ondansetron Hcl 4 Mg/2 Ml Vial) 4 mg IVPUSH Q8H PRN PRN Reason: Nausea and Vomiting Last Admin: 07/28/24 19:34 Dose: 4 mg Documented By: MARY Sodium Chloride (0.9 % Sodium Chloride Flush 3 Ml Syringe) 3 ml IVFLUSH QSHIFT [facility] Last Admin: 07/30/24 07:30 Dose: Not Given Documented By: ALLAN Non-Admin Reason: IV Running Tamsulosin HCl (Tamsulosin Hcl 0.4 Mg Capsule) 0.4 mg PO DAILY [facility] Last Admin: 07/30/24 08:39 Dose: 0.4 mg Documented By: MAYA Valacyclovir HCl (Valacyclovir Hcl 500 Mg Tablet) 500 mg PO DAILY [facility] Last Admin: 07/30/24 08:39 Dose: 500 mg Documented By: MAYA Vitamin D (Cholecalciferol (Vitamin D3) 25 Mcg Tablet) 125 mcg PO DAILY [facility] Last Admin: 07/30/24 08:39 Dose: 125 mcg Documented By: MAYA Vortioxetine (Vortioxetine Hydrobromide 20 Mg Tablet) 20 mg PO DAILY [facility] Last Admin: 07/30/24 08:39 Dose: 20 mg Documented By: MAYA Labs 07/31/24 06:41 07/31/24 06:41 Labs: Laboratory Results - last 24 hr 07/29/24 07/30/24 10:47 08:18 MCV 83.5 MCH 27.0 MCHC 32.3 RDW 14.5 Plt Count 334 MPV 9.8 Absolute Nucleated RBC 0.000 Nucleated RBC % (auto) 0.0 Anion Gap 10 L Estim Creat Clear Calc 116.2 Estimated GFR > 60 Random Glucose 108 Calcium 8.4 Urine Color Yellow Urine Appearance Turbid Urine pH 6.5 Ur Specific [place] <= 1.005 Urine Protein 100 (2+) H Urine Glucose (UA) Negative Urine Ketones Negative Urine Blood Large (3+) H Urine Nitrite Negative Ur Leukocyte Esterase Large (3+) H Urine RBC 3-5 H Urine WBC >50 H Ur Squamous Epith Cells 0-2 Urine Bacteria 1+ Hyaline Casts 0-2 Procedures Date of Service Date of Service: 07/31/24 Progress Note: A&P Assessment and plan (1) IBS (irritable bowel syndrome): Status: Acute Assessment and Plan: Has chronic pain issues abdomen Sigmoidoscopy does not show obstruction She is having bowel movements Diet as tolerated 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 Quality Stroke Does the patient have a stroke diagnosis?: No VTE Prior VTE?: No VTE Risk Level:: Medical - moderate - high VTE Device Contraindication: N/A - Device Ordered VTE Drug Contraindication: Treatment Not Indicated
[2024-07-30 11:00] LABS: C Reactive Protein 5.31 mg/dL (< or = 0.50)
--- NOTE | 2024-07-30 11:06 | P.PNGI_ITS ---
Subjective Subjective Date of Service: 07/30/24 Interval History: Seen at bedside. Reports still has not had any BMs. Abd cramping and bloating persists but tolerating diet. No vomiting. Path: A. Colon, sigmoid, biopsy: Colonic mucosa within normal limits. B. Rectum, biopsy: Rectal mucosa with prominent lymphoid aggregate; otherwise within normal limit Critical Care Time (minutes): 0 Physical Exam 2 Vital Signs: Vital Signs: Last Vital Signs Temp 98 F 07/30/24 06:45 Pulse 87 07/30/24 06:45 Resp 16 07/30/24 06:45 BP 100/54 L 07/30/24 06:45 Pulse Ox 96 07/30/24 06:45 O2 Del Method Room Air 07/30/24 06:45 BMI result Body Mass Index 39.3 No apparent distress Nonicteric Abdomen soft, mildly distended Alert and oriented x3, normal gait Objective Data Labs 07/30/24 08:18 07/30/24 08:18 Labs: Laboratory Results - last 24 hr 07/29/24 07/30/24 10:47 08:18 WBC 7.4 RBC 4.19 L Hgb 11.3 L Hct 35.0 L MCV 83.5 MCH 27.0 MCHC 32.3 RDW 14.5 Plt Count 334 MPV 9.8 Absolute Nucleated RBC 0.000 Nucleated RBC % (auto) 0.0 Sodium 139 Potassium 3.9 Chloride 104 Carbon Dioxide 29 Anion Gap 10 L BUN 7 L Creatinine 0.74 Estim Creat Clear Calc 116.2 Estimated GFR > 60 Random Glucose 108 Calcium 8.4 C-Reactive Protein 5.31 H Urine Color Yellow Urine Appearance Turbid Urine pH 6.5 Ur Specific [place] <= 1.005 Urine Protein 100 (2+) H Urine Glucose (UA) Negative Urine Ketones Negative Urine Blood Large (3+) H Urine Nitrite Negative Ur Leukocyte Esterase Large (3+) H Urine RBC 3-5 H Urine WBC >50 H Ur Squamous Epith Cells 0-2 Urine Bacteria 1+ Hyaline Casts 0-2 Procedures Date of Service Date of Service: 07/30/24 Progress Note: A&P Assessment and plan (1) Colon wall thickening: Status: Acute Plan Reassured pt that pathology does not show any chronic inflammatory or ischemic process to explain colon wall edema. Recommend -Gastrografin enema -if no colon wall thickening/luminal narrowing noted on the enema, can DC further hydrocortisone enema -gastrograffin enema should also help with relieving constipation -if no response the enema, may review starting prucalopride inpt vs PEG prep Time Spent With Patient Time: Total time managing care of this patient today ____ minutes. Quality Stroke Does the patient have a stroke diagnosis?: No VTE Prior VTE?: No VTE Risk Level:: Medical - moderate - high VTE Device Contraindication: N/A - Device Ordered VTE Drug Contraindication: Treatment Not Indicated
[2024-07-30 11:28] LABS: Erythrocyte Sedimentation Rate 38 MM/HR (0-20)
--- NOTE | 2024-07-30 11:29 | MHC.CM.PN ---
Per MD rounds patient not medically cleared for dc at this time. CM will continue to follow.
[2024-07-30] MEDS: cefTRIAXone sodium 1 GM VIAL IVPUSH (12:10)
[2024-07-30] MEDS: PHENobarb/Hyoscy/Atropine/Scop 10 ML ELIXIR 5 ML PO ×3 (12:10→20:14)
--- NOTE | 2024-07-30 13:23 | P.PNIM_ITS ---
Subjective Subjective Date of Service: 07/30/24 Interval History: Seen and evaluated this morning still reporting abd pain and nausea tolerating PO partially still constipated no other events Review of Systems Review of Systems: Yes all other systems are reviewed and are negative Physical Exam 2 Vital Signs: Vital Signs: Last Vital Signs Temp 98 F 07/30/24 06:45 Pulse 87 07/30/24 06:45 Resp 16 07/30/24 06:45 BP 100/54 L 07/30/24 06:45 Pulse Ox 96 07/30/24 06:45 O2 Del Method Room Air 07/30/24 06:45 BMI result Body Mass Index 39.3 Const: Other: Constitutional : Awake, interactive, not in distress Neck : Normal inspection, Supple Cardiovascular : RRR, no JVP, no lower extremity edema Respiratory : good bilateral air entry, no crackles, wheezes or rhonchi Gastrointestinal: soft, lax, Normal bowel sounds, generalized mild superficial tenderness Skin : Warm, Dry Neurological : Alert & oriented x3, No focal deficit Objective Data Active Medications Acetaminophen (Acetaminophen 325 Mg Tablet) 975 mg PO Q6H PRN PRN Reason: Pain, Mild 1-3,fever,headache Belladonna Alkaloids/Phenobarbital (Phenobarb/Hyoscy/Atropine/Scop 10 Ml [place]) 5 ml PO QID [facility] Last Admin: 07/30/24 12:10 Dose: 5 ml Documented By: ALLAN Calcium Carbonate (Calcium Carbonate 750 Mg Tab.Chew) 750 mg PO Q4H PRN PRN Reason: Heartburn Ceftriaxone Sodium (Ceftriaxone Sodium 1 Gm Vial) 1 gm IVPUSH Q24H [facility] Last Admin: 07/30/24 12:10 Dose: 1 gm Documented By: ALLAN Clonazepam (Clonazepam 1 Mg Tablet) 1 mg PO TID [facility] Last Admin: 07/30/24 08:39 Dose: 1 mg Documented By: MAYA Docusate Sodium (Docusate Sodium 100 Mg Capsule) 100 mg PO BID [facility] Last Admin: 07/30/24 08:39 Dose: 100 mg Documented By: MAYA Enoxaparin Sodium (Enoxaparin Sodium 40 Mg/0.4 Ml Syringe) 40 mg SUBCUT Q24H [facility] Last Admin: 07/30/24 08:37 Dose: 40 mg Documented By: MAYA Famotidine (Famotidine 20 Mg Tablet) 20 mg PO BID [facility] Last Admin: 07/30/24 08:39 Dose: 20 mg Documented By: MAYA Fluticasone Propionate (Fluticasone Propionate Nasal 16 Gm [place]) 2 spray NOSTRIL-B DAILY PRN PRN Reason: Allergy Symptoms Last Admin: 07/27/24 09:40 Dose: 2 spray Documented By: MELISA Hydrocortisone (Hydrocortisone 100 Mg/60 Ml Enema) 100 mg [place] DAILY@1700 [facility] Last Admin: 07/29/24 16:13 Dose: Not Given Documented By: MEME Non-Admin Reason: Patient Refused Hydromorphone HCl (Hydromorphone Hcl 1 Mg/Ml Syringe) 0.5 mg IVPUSH Q4H PRN; Protocol PRN Reason: Pain, Severe (Pain Scale 7-10) Last Admin: 07/30/24 09:25 Dose: 0.5 mg Documented By: ALLAN Hydroxyzine HCl (Hydroxyzine Hcl 25 Mg Tablet) 25 mg PO BEDTIME [facility] Last Admin: 07/29/24 20:53 Dose: 25 mg Documented By: VALENTINA Lactated Ringer's (Lr) 1,000 mls @ 80 mls/hr IVCONT .[id number] [facility] Last Admin: 07/30/24 04:38 Dose: 80 mls/hr Documented By: YOLANDA Ketorolac Tromethamine (Ketorolac Tromethamine 30 Mg/Ml Vial) 30 mg IVPUSH Q6H PRN PRN Reason: Pain, Moderate(Pain Scale 4-6) Stop: 07/30/24 23:09 Last Admin: 07/30/24 12:09 Dose: 30 mg Documented By: ALLAN Lactulose (Lactulose 20 Gm/30 Ml Solution) 20 gm PO TID [facility] Lamotrigine (Lamotrigine 100 Mg Tablet) 200 mg PO DAILY [facility] Last Admin: 07/30/24 08:39 Dose: 200 mg Documented By: MAYA Lamotrigine (Lamotrigine 25 Mg Tablet) 50 mg PO BEDTIME [facility] Last Admin: 07/29/24 20:53 Dose: 50 mg Documented By: ANTOINC Magnesium Hydroxide (Milk Of Magnesia 30 Ml Oral.Susp) 30 ml PO DAILY PRN PRN Reason: Constipation Last Admin: 07/29/24 08:34 Dose: 30 ml Documented By: MEME Magnesium Hydroxide (Milk Of Magnesia 30 Ml Oral.Susp) 10 ml PO DAILY PRN PRN Reason: constipation Melatonin (Melatonin 3 Mg Tablet) 6 mg PO BEDTIME PRN PRN Reason: Insomnia Mirabegron (Mirabegron 50 Mg Tab.Er.24h) 50 mg PO DAILY [facility] Last Admin: 07/30/24 08:39 Dose: 50 mg Documented By: MAYA Omeprazole (Omeprazole 20 Mg Capsule.) 20 mg PO DAILY@0630 [facility] Last Admin: 07/30/24 05:44 Dose: 20 mg Documented By: YOLANDA Ondansetron HCl (Ondansetron Hcl 4 Mg/2 Ml Vial) 4 mg IVPUSH Q8H PRN PRN Reason: Nausea and Vomiting Last Admin: 07/28/24 19:34 Dose: 4 mg Documented By: MARY Sodium Chloride (0.9 % Sodium Chloride Flush 3 Ml Syringe) 3 ml IVFLUSH QSHIFT [facility] Last Admin: 07/30/24 07:30 Dose: Not Given Documented By: ALLAN Non-Admin Reason: IV Running Tamsulosin HCl (Tamsulosin Hcl 0.4 Mg Capsule) 0.4 mg PO DAILY [facility] Last Admin: 07/30/24 08:39 Dose: 0.4 mg Documented By: MAYA Valacyclovir HCl (Valacyclovir Hcl 500 Mg Tablet) 500 mg PO DAILY [facility] Last Admin: 07/30/24 08:39 Dose: 500 mg Documented By: MAAY Vitamin D (Cholecalciferol (Vitamin D3) 25 Mcg Tablet) 125 mcg PO DAILY [facility] Last Admin: 07/30/24 08:39 Dose: 125 mcg Documented By: MAYA Vortioxetine (Vortioxetine Hydrobromide 20 Mg Tablet) 20 mg PO DAILY [facility] Last Admin: 07/30/24 08:39 Dose: 20 mg Documented By: MAYA Labs 07/30/24 08:18 07/30/24 08:18 Labs: Laboratory Results - last 24 hr 07/30/24 08:18 MCV 83.5 MCH 27.0 MCHC 32.3 RDW 14.5 Plt Count 334 MPV 9.8 Absolute Nucleated RBC 0.000 Nucleated RBC % (auto) 0.0 ESR 38 H Anion Gap 10 L Estim Creat Clear Calc 116.2 Estimated GFR > 60 Random Glucose 108 Calcium 8.4 C-Reactive Protein 5.31 H Microbiology Microbiology Results: Microbiology 07/29/24 Unknown Urine Culture - Preliminary Urine clean catch - Clean Catch Midstream Gram negative mary alice Assessment and Plan (1) Proctosigmoiditis: Status: Acute (2) Stricture of sigmoid colon: Status: Acute (3) Colon wall thickening: Status: Acute Plan 43F PMH morbid obesity, occipital neuralgia, IBS, interstitial cystitis, GERD, anxiety, depression presented with abdominal pain and constipation' Constipation abdominal pain narrowing of sigmoid on imaging - sigmoidoscopy revealed some narrowing but nonobstructive, biopsies taken recommendations to suppository steroids General surgery has no intervention plans To do Gastrografin enema per GI rec Has elevated ESR, CRP; could be inflammatory changes, to start hydrocortisone supp wean down pain meds increase Laxatives advance to solids Mood disorder Continue Lamictal, Klonopin Morbid obesity Weight loss recommended DVT prophylaxis-Lovenox Full code reason for continued hospitalization: Abdominal pain, not tolerating po Quality Stroke Does the patient have a stroke diagnosis?: No VTE Prior VTE?: No VTE Risk Level:: Medical - moderate - high VTE Device Contraindication: N/A - Device Ordered VTE Drug Contraindication: Treatment Not Indicated
[2024-07-30] MEDS: Lactulose 20 GM/30 ML SOLUTION PO ×2 (15:16→20:14)
[2024-07-30] MEDS: 0.9 % Sodium Chloride Flush 3 ML SYRINGE IVFLUSH (15:16)
[2024-07-30 15:30] VITALS: BP 114/56; PULSE 82; RESP 20; TEMP 36.8; O2SAT 96
[2024-07-30 19:15] VITALS: BP 111/55; PULSE 92; RESP 20; TEMP 36.4; O2SAT 97
[2024-07-30] MEDS: lamoTRIgine 25 MG TABLET 50 MG PO (20:13)
[2024-07-30] MEDS: hydrOXYzine HCL 25 MG TABLET PO (20:14)
[2024-07-30] MEDS: ondansetron HCL 4 MG/2 ML VIAL IVPUSH (20:23)
--- NOTE | 2024-07-31 | ECG_ITS ---
Test Reason : chest pain Blood Pressure : */* mmHG Vent. Rate : 97 BPM Atrial Rate : 97 BPM P-R Int : 144 ms QRS Dur : 90 ms QT Int : 338 ms P-R-T Axes : 46 43 35 degrees QTcB Int : 429 ms Normal sinus rhythm Normal ECG When compared with ECG of 25-Jul-2024 17:28, T wave inversion now evident in Anterior leads Referred By: Joleen Chatman Electronically Signed By: Delmer Randolph
[2024-07-31] MEDS: Ketorolac Tromethamine 30 MG/ML VIAL IVPUSH (02:57)
[2024-07-31 04:00] VITALS: BP 113/56; PULSE 78; RESP 18; TEMP 36.6; O2SAT 96
[2024-07-31] MEDS: Omeprazole 20 MG CAPSULE.DR PO (05:30)
[2024-07-31] MEDS: Lactated Ringers 1,000 ML 80 ML IVCONT (05:31)
[2024-07-31 06:51] LABS: MANUAL DIFF FLAG NO
[2024-07-31 06:53] VITALS: BP 115/61; PULSE 73; RESP 16; TEMP 36.6; O2SAT 98
[2024-07-31 06:54] LABS: Basophils Percent Auto 0.3 % (0-2); Eosinophils Absolute Auto 0.2 X10*3/uL (0.0-0.4); Hematocrit 34.6 % (37.0-47.0); Hemoglobin 11.6 g/dl (12.0-16.0); Imm Gran Abs Auto 0.04 X10*3/uL (0.00-0.03); Imm Gran Pct Auto 0.6 % (0.0-0.4); Lymphocytes Absolute Auto 2.9 X10*3/uL (1.2-4.9); Lymphocytes Percent Auto 41.9 % (20-40); Mean Corpuscular HGB Conc 33.5 g/dl (31.0-35.0); Mean Corpuscular Hemoglobin 27.6 pg (27.0-33.0); Mean Corpuscular Volume 82.2 fL (80.0-98.0); Mean Platelet Volume 9.5 fL (9.4-12.3); Monocytes Absolute Auto 0.5 X10*3/uL (0.1-1.2); Monocytes Percent Auto 6.4 % (2-11); Neutrophils Absolute Auto 3.4 x10*3/uL (2.0-8.3); Neutrophils Percent Auto 47.8 % (45-73); Platelet Count 333 X10*3/uL (160-400); Red Blood Count 4.21 X10*6/uL (4.20-5.50); Red Cell Distribution Width 14.4 % (11.0-16.0)
[2024-07-31] MEDS: HYDROmorphone HCl 1 MG/ML SYRINGE 0.5 MG IVPUSH ×3 (07:09→20:34)
[2024-07-31 07:11] LABS: Anion Gap 10 (12-20); Blood Urea Nitrogen 5 mg/dL (9-16); Calcium 8.6 mg/dL (8.4-10.2); Carbon Dioxide 28 mmol/L (22-29); Chloride 103 mmol/L (96-108); Creatinine Clr Calc Pharmacy 136.5; Estimated Glomerular Filt Rate > 60; Glucose Random 93 mg/dL (60-115); Potassium 4.1 mmol/L (3.3-5.1); Sodium 137 mmol/L (135-145)
[2024-07-31] MEDS: Lactulose 20 GM/30 ML SOLUTION PO ×3 (08:19→20:24)
[2024-07-31] MEDS: PHENobarb/Hyoscy/Atropine/Scop 10 ML ELIXIR 5 ML PO ×4 (08:19→20:24)
[2024-07-31] MEDS: valACYclovir HCL 500 MG TABLET PO (08:20)
[2024-07-31] MEDS: Tamsulosin HCL 0.4 MG CAPSULE PO (08:20)
[2024-07-31] MEDS: lamoTRIgine 100 MG TABLET 200 MG PO (08:20)
[2024-07-31] MEDS: Cholecalciferol (Vitamin D3) 25 MCG TABLET 125 MCG PO (08:20)
[2024-07-31] MEDS: Famotidine 20 MG TABLET PO ×2 (08:20→20:24)
[2024-07-31] MEDS: Docusate Sodium 100 MG CAPSULE PO ×2 (08:20→20:24)
[2024-07-31] MEDS: Vortioxetine Hydrobromide 20 MG TABLET PO (08:20)
[2024-07-31] MEDS: Mirabegron 50 MG TAB.ER.24H PO (08:20)
[2024-07-31] MEDS: clonazePAM 1 MG TABLET PO ×4 (08:20→20:24)
[2024-07-31] MEDS: Enoxaparin Sodium 40 MG/0.4 ML SYRINGE SUBCUT (08:29)
--- NOTE | 2024-07-31 08:59 | P.PNGS_ITS ---
Subjective Subjective Date of Service: 07/31/24 Interval history: She is depressed and anxious She reports having flatus and smearing yesterday Had bowel movements the other day She is frustrated about her chronic GI issues and says she just wants to have good bowel movements Physical Exam 2 Vital Signs: Vital Signs: Last Vital Signs Temp 98 F 07/31/24 06:53 Pulse 73 07/31/24 06:53 Resp 16 07/31/24 06:53 BP 115/61 07/31/24 06:53 Pulse Ox 98 07/31/24 06:53 O2 Del Method Room Air 07/31/24 06:53 BMI result Body Mass Index 39.3 Const: Other: Looks depressed General: comfortable and no acute distress Resp: Effort & Inspection: normal respiratory effort Cardio: Rate: regular rate GI: Other: Protuberant Palpation (GI): Soft to palpation, not firm, nontender and no guarding Objective Data Active Medications Acetaminophen (Acetaminophen 325 Mg Tablet) 975 mg PO Q6H PRN PRN Reason: Pain, Mild 1-3,fever,headache Belladonna Alkaloids/Phenobarbital (Phenobarb/Hyoscy/Atropine/Scop 10 Ml Elixir) 5 ml PO QID [facility] Last Admin: 07/31/24 08:19 Dose: 5 ml Documented By: ALLAN Calcium Carbonate (Calcium Carbonate 750 Mg Tab.Chew) 750 mg PO Q4H PRN PRN Reason: Heartburn Ceftriaxone Sodium (Ceftriaxone Sodium 1 Gm Vial) 1 gm IVPUSH Q24H [facility] Last Admin: 07/30/24 12:10 Dose: 1 gm Documented By: ALLAN Clonazepam (Clonazepam 1 Mg Tablet) 1 mg PO TID [facility] Last Admin: 07/31/24 08:20 Dose: 1 mg Documented By: ALLAN Docusate Sodium (Docusate Sodium 100 Mg Capsule) 100 mg PO BID [facility] Last Admin: 07/31/24 08:20 Dose: 100 mg Documented By: ALLAN Enoxaparin Sodium (Enoxaparin Sodium 40 Mg/0.4 Ml Syringe) 40 mg SUBCUT Q24H [facility] Last Admin: 07/30/24 08:37 Dose: 40 mg Documented By: MAYA Famotidine (Famotidine 20 Mg Tablet) 20 mg PO BID [facility] Last Admin: 07/31/24 08:20 Dose: 20 mg Documented By: ALLAN Fluticasone Propionate (Fluticasone Propionate Nasal 16 Gm [place]) 2 spray NOSTRIL-B DAILY PRN PRN Reason: Allergy Symptoms Last Admin: 07/27/24 09:40 Dose: 2 spray Documented By: MELISA Hydrocortisone (Hydrocortisone 100 Mg/60 Ml Enema) 100 mg [place] DAILY@1700 [facility] Last Admin: 07/30/24 17:21 Dose: Not Given Documented By: ALLAN Non-Admin Reason: Patient Refused Hydromorphone HCl (Hydromorphone Hcl 1 Mg/Ml Syringe) 0.5 mg IVPUSH Q4H PRN; Protocol PRN Reason: Pain, Severe (Pain Scale 7-10) Last Admin: 07/31/24 07:09 Dose: 0.5 mg Documented By: ALLAN Hydroxyzine HCl (Hydroxyzine Hcl 25 Mg Tablet) 25 mg PO BEDTIME [facility] Last Admin: 07/30/24 20:14 Dose: 25 mg Documented By: JHON Lactated Ringer's (Lr) 1,000 mls @ 80 mls/hr IVCONT .[id number] [facility] Last Admin: 07/31/24 05:31 Dose: 80 mls/hr Documented By: JHON Lactulose (Lactulose 20 Gm/30 Ml Solution) 20 gm PO TID [facility] Last Admin: 07/31/24 08:19 Dose: 20 gm Documented By: ALLAN Lamotrigine (Lamotrigine 100 Mg Tablet) 200 mg PO DAILY [facility] Last Admin: 07/31/24 08:20 Dose: 200 mg Documented By: ALLAN Lamotrigine (Lamotrigine 25 Mg Tablet) 50 mg PO BEDTIME [facility] Last Admin: 07/30/24 20:13 Dose: 50 mg Documented By: JHON Magnesium Hydroxide (Milk Of Magnesia 30 Ml Oral.Susp) 30 ml PO DAILY PRN PRN Reason: Constipation Last Admin: 07/29/24 08:34 Dose: 30 ml Documented By: MEME Magnesium Hydroxide (Milk Of Magnesia 30 Ml Oral.Susp) 10 ml PO DAILY PRN PRN Reason: constipation Melatonin (Melatonin 3 Mg Tablet) 6 mg PO BEDTIME PRN PRN Reason: Insomnia Mirabegron (Mirabegron 50 Mg Tab.Er.24h) 50 mg PO DAILY [facility] Last Admin: 07/31/24 08:20 Dose: 50 mg Documented By: ALLAN Omeprazole (Omeprazole 20 Mg Capsule.Dr) 20 mg PO DAILY@0630 [facility] Last Admin: 07/31/24 05:30 Dose: 20 mg Documented By: JHON Ondansetron HCl (Ondansetron Hcl 4 Mg/2 Ml Vial) 4 mg IVPUSH Q8H PRN PRN Reason: Nausea and Vomiting Last Admin: 07/30/24 20:23 Dose: 4 mg Documented By: JHON Sodium Chloride (0.9 % Sodium Chloride Flush 3 Ml Syringe) 3 ml IVFLUSH QSHIFT [facility] Last Admin: 07/31/24 07:12 Dose: Not Given Documented By: ALLAN Non-Admin Reason: IV Running Tamsulosin HCl (Tamsulosin Hcl 0.4 Mg Capsule) 0.4 mg PO DAILY [facility] Last Admin: 07/31/24 08:20 Dose: 0.4 mg Documented By: ALLAN Valacyclovir HCl (Valacyclovir Hcl 500 Mg Tablet) 500 mg PO DAILY [facility] Last Admin: 07/31/24 08:20 Dose: 500 mg Documented By: ALLAN Vitamin D (Cholecalciferol (Vitamin D3) 25 Mcg Tablet) 125 mcg PO DAILY [facility] Last Admin: 07/31/24 08:20 Dose: 125 mcg Documented By: ALLAN Vortioxetine (Vortioxetine Hydrobromide 20 Mg Tablet) 20 mg PO DAILY [facility] Last Admin: 07/31/24 08:20 Dose: 20 mg Documented By: ALLAN Labs 07/31/24 06:41 07/31/24 06:41 Labs: Laboratory Results - last 24 hr 07/30/24 07/31/24 08:18 06:41 MCV 82.2 MCH 27.6 MCHC 33.5 RDW 14.4 Plt Count 333 MPV 9.5 Immature Gran % (Auto) 0.6 H Neut % (Auto) 47.8 Lymph % (Auto) 41.9 H [place] % (Auto) 6.4 Eos % (Auto) 3.0 Baso % (Auto) 0.3 Lymph # (Auto) 2.9 [place] # (Auto) 0.5 Eos # (Auto) 0.2 Baso # (Auto) 0.0 Abs Immat Gran (auto) 0.04 H Absolute Neuts (auto) 3.4 Absolute Nucleated RBC 0.000 Nucleated RBC % (auto) 0.0 ESR 38 H Anion Gap 10 L 10 L Estim Creat Clear Calc 116.2 136.5 Estimated GFR > 60 > 60 Random Glucose 108 93 Calcium 8.4 8.6 C-Reactive Protein 5.31 H Microbiology Microbiology Results: Microbiology 07/29/24 Unknown Urine Culture - Final Urine clean catch - Clean Catch Midstream Klebsiella oxytoca Procedures Date of Service Date of Service: 07/31/24 Progress Note: A&P Assessment and plan (1) Constipation: Status: Acute Assessment and Plan: She has a long history of GI issues including diarrhea and constipation Flex sig done last weekend shows no evidence of obstruction She is to undergo Gastrografin enema today Abdomen is soft and benign She is passing flatus And also has interstitial cystitis with chronic urinary issues Currently no surgical intervention indicated Time Spent With Patient Time: Total time managing care of this patient today ____ minutes. Quality Stroke Does the patient have a stroke diagnosis?: No VTE Prior VTE?: No VTE Risk Level:: Medical - moderate - high VTE Device Contraindication: N/A - Device Ordered VTE Drug Contraindication: Treatment Not Indicated
[2024-07-31 12:37] VITALS: BP 139/96; PULSE 90; RESP 16; TEMP 36.6; O2SAT 97
[2024-07-31] MEDS: Ketorolac Tromethamine 15 MG/ML VIAL IVPUSH ×2 (12:39→19:39)
[2024-07-31] MEDS: cefTRIAXone sodium 1 GM VIAL IVPUSH (12:40)
[2024-07-31] MEDS: Diatrizoate Meglumine, Sodium 120 ML SOLUTION 720 ML PR (12:43)
--- NOTE | 2024-07-31 14:10 | P.PNIM_ITS ---
Subjective Subjective Date of Service: 07/31/24 Interval History: Seen and evaluated this morning less abd pain and nausea tolerating PO passing gas and had liquid bowel movement no other events Review of Systems Review of Systems: Yes all other systems are reviewed and are negative Physical Exam 2 Vital Signs: Vital Signs: Last Vital Signs Temp 98 F 07/31/24 12:37 Pulse 90 07/31/24 12:37 Resp 16 07/31/24 12:37 BP 139/96 H 07/31/24 12:37 Pulse Ox 97 07/31/24 12:37 O2 Del Method Room Air 07/31/24 12:37 BMI result Body Mass Index 39.3 Const: Other: Constitutional : Awake, interactive, not in distress Neck : Normal inspection, Supple Cardiovascular : RRR, no JVP, no lower extremity edema Respiratory : good bilateral air entry, no crackles, wheezes or rhonchi Gastrointestinal: soft, lax, Normal bowel sounds, generalized mild superficial tenderness Skin : Warm, Dry Neurological : Alert & oriented x3, No focal deficit Objective Data Active Medications Acetaminophen (Acetaminophen 325 Mg Tablet) 975 mg PO Q6H PRN PRN Reason: Pain, Mild 1-3,fever,headache Belladonna Alkaloids/Phenobarbital (Phenobarb/Hyoscy/Atropine/Scop 10 Ml Elixir) 5 ml PO QID [facility] Last Admin: 07/31/24 12:40 Dose: 5 ml Documented By: ALLAN Calcium Carbonate (Calcium Carbonate 750 Mg Tab.Chew) 750 mg PO Q4H PRN PRN Reason: Heartburn Ceftriaxone Sodium (Ceftriaxone Sodium 1 Gm Vial) 1 gm IVPUSH Q24H [facility] Last Admin: 07/31/24 12:40 Dose: 1 gm Documented By: ALLAN Clonazepam (Clonazepam 1 Mg Tablet) 1 mg PO TID [facility] Last Admin: 07/31/24 08:20 Dose: 1 mg Documented By: ALLAN Docusate Sodium (Docusate Sodium 100 Mg Capsule) 100 mg PO BID [facility] Last Admin: 07/31/24 08:20 Dose: 100 mg Documented By: ALLAN Enoxaparin Sodium (Enoxaparin Sodium 40 Mg/0.4 Ml Syringe) 40 mg SUBCUT Q24H [facility] Last Admin: 07/31/24 08:29 Dose: 40 mg Documented By: ALLAN Famotidine (Famotidine 20 Mg Tablet) 20 mg PO BID [facility] Last Admin: 07/31/24 08:20 Dose: 20 mg Documented By: ALLAN Fluticasone Propionate (Fluticasone Propionate Nasal 16 Gm [place]) 2 spray NOSTRIL-B DAILY PRN PRN Reason: Allergy Symptoms Last Admin: 07/27/24 09:40 Dose: 2 spray Documented By: MELISA Hydrocortisone (Hydrocortisone 100 Mg/60 Ml Enema) 100 mg [place] DAILY@1700 [facility] Last Admin: 07/30/24 17:21 Dose: Not Given Documented By: ALLAN Non-Admin Reason: Patient Refused Hydromorphone HCl (Hydromorphone Hcl 1 Mg/Ml Syringe) 0.5 mg IVPUSH Q4H PRN; Protocol PRN Reason: Pain, Severe (Pain Scale 7-10) Last Admin: 07/31/24 07:09 Dose: 0.5 mg Documented By: ALLAN Hydroxyzine HCl (Hydroxyzine Hcl 25 Mg Tablet) 25 mg PO BEDTIME [facility] Last Admin: 07/30/24 20:14 Dose: 25 mg Documented By: JHON Lactated Ringer's (Lr) 1,000 mls @ 80 mls/hr IVCONT .[id number] [facility] Last Admin: 07/31/24 05:31 Dose: 80 mls/hr Documented By: JHON Ketorolac Tromethamine (Ketorolac Tromethamine 15 Mg/Ml Vial) 15 mg IVPUSH Q6H PRN PRN Reason: Pain, Moderate(Pain Scale 4-6) Last Admin: 07/31/24 12:39 Dose: 15 mg Documented By: ALLAN Lactulose (Lactulose 20 Gm/30 Ml Solution) 20 gm PO TID [facility] Last Admin: 07/31/24 08:19 Dose: 20 gm Documented By: ALLAN Lamotrigine (Lamotrigine 100 Mg Tablet) 200 mg PO DAILY [facility] Last Admin: 07/31/24 08:20 Dose: 200 mg Documented By: ALLAN Lamotrigine (Lamotrigine 25 Mg Tablet) 50 mg PO BEDTIME [facility] Last Admin: 07/30/24 20:13 Dose: 50 mg Documented By: JHON Magnesium Hydroxide (Milk Of Magnesia 30 Ml Oral.Susp) 30 ml PO DAILY PRN PRN Reason: Constipation Last Admin: 07/29/24 08:34 Dose: 30 ml Documented By: MEME Magnesium Hydroxide (Milk Of Magnesia 30 Ml Oral.Susp) 10 ml PO DAILY PRN PRN Reason: constipation Melatonin (Melatonin 3 Mg Tablet) 6 mg PO BEDTIME PRN PRN Reason: Insomnia Mesalamine (Mesalamine 0.375 Gm Cap.Er.24h) 1.5 gm PO DAILY [facility] Mirabegron (Mirabegron 50 Mg Tab.Er.24h) 50 mg PO DAILY [facility] Last Admin: 07/31/24 08:20 Dose: 50 mg Documented By: ALLAN Omeprazole (Omeprazole 20 Mg Capsule.Dr) 20 mg PO DAILY@0630 [facility] Last Admin: 07/31/24 05:30 Dose: 20 mg Documented By: JHON Ondansetron HCl (Ondansetron Hcl 4 Mg/2 Ml Vial) 4 mg IVPUSH Q8H PRN PRN Reason: Nausea and Vomiting Last Admin: 07/30/24 20:23 Dose: 4 mg Documented By: JHON Pramoxine HCl (Pramoxine Hcl 1 % Rectal Foam 15 Gm) 1 appl [place] BID [facility] Sodium Chloride (0.9 % Sodium Chloride Flush 3 Ml Syringe) 3 ml IVFLUSH QSHIFT [facility] Last Admin: 07/31/24 07:12 Dose: Not Given Documented By: ALLAN Non-Admin Reason: IV Running Tamsulosin HCl (Tamsulosin Hcl 0.4 Mg Capsule) 0.4 mg PO DAILY [facility] Last Admin: 07/31/24 08:20 Dose: 0.4 mg Documented By: ALLAN Valacyclovir HCl (Valacyclovir Hcl 500 Mg Tablet) 500 mg PO DAILY [facility] Last Admin: 07/31/24 08:20 Dose: 500 mg Documented By: ALLAN Vitamin D (Cholecalciferol (Vitamin D3) 25 Mcg Tablet) 125 mcg PO DAILY [facility] Last Admin: 07/31/24 08:20 Dose: 125 mcg Documented By: ALLAN Vortioxetine (Vortioxetine Hydrobromide 20 Mg Tablet) 20 mg PO DAILY [facility] Last Admin: 07/31/24 08:20 Dose: 20 mg Documented By: ALLAN Labs 07/31/24 06:41 07/31/24 06:41 Labs: Laboratory Results - last 24 hr 07/31/24 06:41 MCV 82.2 MCH 27.6 MCHC 33.5 RDW 14.4 Plt Count 333 MPV 9.5 Immature Gran % (Auto) 0.6 H Neut % (Auto) 47.8 Lymph % (Auto) 41.9 H [place] % (Auto) 6.4 Eos % (Auto) 3.0 Baso % (Auto) 0.3 Lymph # (Auto) 2.9 [place] # (Auto) 0.5 Eos # (Auto) 0.2 Baso # (Auto) 0.0 Abs Immat Gran (auto) 0.04 H Absolute Neuts (auto) 3.4 Absolute Nucleated RBC 0.000 Nucleated RBC % (auto) 0.0 Anion Gap 10 L Estim Creat Clear Calc 136.5 Estimated GFR > 60 Random Glucose 93 Calcium 8.6 Microbiology Microbiology Results: Microbiology 07/29/24 Unknown Urine Culture - Final Urine clean catch - Clean Catch Midstream Klebsiella oxytoca Assessment and Plan (1) Proctosigmoiditis: Status: Acute (2) Stricture of sigmoid colon: Status: Acute (3) Colon wall thickening: Status: Acute Plan 43F PMH morbid obesity, occipital neuralgia, IBS, interstitial cystitis, GERD, anxiety, depression presented with abdominal pain and constipation' Constipation abdominal pain narrowing of sigmoid on imaging - sigmoidoscopy revealed some narrowing but nonobstructive, biopsies taken recommendations to suppository steroids General surgery has no intervention plans Gastrografin enema done showing concern over possible mass because of the narrowing Has elevated ESR, CRP; could be inflammatory changes, to start hydrocortisone Foam and Meselamin per dr Jackson who suggested follow up in 1 month for repeat Colonoscopy wean down pain meds increase Laxatives ; Lactulose advance to solids Mood disorder Continue Lamictal, Klonopin Morbid obesity Weight loss recommended DVT prophylaxis-Lovenox Full code reason for continued hospitalization: Abdominal pain, not tolerating po Quality Stroke Does the patient have a stroke diagnosis?: No VTE Prior VTE?: No VTE Risk Level:: Medical - moderate - high VTE Device Contraindication: N/A - Device Ordered VTE Drug Contraindication: Treatment Not Indicated
[2024-07-31] MEDS: MESALAMINE 0.375 GM 1.5 GM PO (15:05)
[2024-07-31] MEDS: Pramoxine HCl 1 % Rectal Foam 15 GM 1 APPL PR ×2 (15:08→20:29)
[2024-07-31 15:35] VITALS: BP 112/55; PULSE 93; RESP 18; TEMP 36.1; O2SAT 94
[2024-07-31 18:25] VITALS: BP 132/74; PULSE 88; RESP 18; TEMP 36.6; O2SAT 95
--- NOTE | 2024-07-31 18:34 | PC.NURSE ---
Pt complaining of chest pressure saying it feels like somebody punched her in the chest. She says it is in the center of her chest and is not moving or radiating. Vitals stable T 97.8 P 88 R 18 O2 95 on room air, BP 132/74. Some non-pitting upper extremity edema noted. IV fluids paused. Dr Godinez made aware. Pt currently sitting up in bed eating dinner.
--- NOTE | 2024-07-31 19:00 | PM.EVENT ---
Event Note Date of Service: 07/31/24 Event Note: Patient with chest pressure. Obtaining EKG and troponin. Vitals stable Time Spent With Patient Time: Total time managing care of this patient today ____ minutes.
[2024-07-31] MEDS: ondansetron HCL 4 MG/2 ML VIAL IVPUSH (19:30)
[2024-07-31 20:00] VITALS: BP 135/64; PULSE 99; RESP 18; TEMP 36.4; O2SAT 99
[2024-07-31 20:01] LABS: Troponin-I High Sensitivity < 2.7 ng/L (<3.5-17.0)
[2024-07-31] MEDS: hydrOXYzine HCL 25 MG TABLET PO (20:24)
[2024-07-31] MEDS: lamoTRIgine 25 MG TABLET 50 MG PO (20:24)
[2024-07-31] MEDS: 0.9 % Sodium Chloride Flush 3 ML SYRINGE IVFLUSH (20:25)
[2024-07-31] MEDS: Acetaminophen 325 MG TABLET 975 MG PO (23:11)
[2024-08-01] MEDS: HYDROmorphone HCl 1 MG/ML SYRINGE 0.5 MG IVPUSH ×2 (00:30→09:39)
[2024-08-01] MEDS: Ketorolac Tromethamine 15 MG/ML VIAL IVPUSH ×2 (01:41→12:37)
[2024-08-01 03:18] VITALS: BP 113/56; PULSE 84; RESP 18; TEMP 36.4; O2SAT 95
[2024-08-01] MEDS: Omeprazole 20 MG CAPSULE.DR PO (05:37)
[2024-08-01 07:16] LABS: MANUAL DIFF FLAG NO
[2024-08-01 07:22] LABS: Basophils Percent Auto 0.1 % (0-2); Eosinophils Absolute Auto 0.2 X10*3/uL (0.0-0.4); Eosinophils Percent Auto 2.3 % (0-4); Hematocrit 33.8 % (37.0-47.0); Imm Gran Abs Auto 0.03 X10*3/uL (0.00-0.03); Imm Gran Pct Auto 0.4 % (0.0-0.4); Mean Corpuscular HGB Conc 32.5 g/dl (31.0-35.0); Mean Corpuscular Hemoglobin 27.4 pg (27.0-33.0); Mean Corpuscular Volume 84.1 fL (80.0-98.0); Mean Platelet Volume 9.8 fL (9.4-12.3); Monocytes Absolute Auto 0.5 X10*3/uL (0.1-1.2); Monocytes Percent Auto 6.7 % (2-11); Neutrophils Absolute Auto 3.6 x10*3/uL (2.0-8.3); Neutrophils Percent Auto 49.5 % (45-73); Platelet Count 355 X10*3/uL (160-400); Red Blood Count 4.02 X10*6/uL (4.20-5.50); Red Cell Distribution Width 14.4 % (11.0-16.0); White Blood Count 7.4 X10*3/uL (4.8-10.8)
[2024-08-01 07:40] LABS: Anion Gap 10 (12-20); Blood Urea Nitrogen 8 mg/dL (9-16); Calcium 8.4 mg/dL (8.4-10.2); Carbon Dioxide 26 mmol/L (22-29); Chloride 104 mmol/L (96-108); Creatinine Clr Calc Pharmacy 136.5; Estimated Glomerular Filt Rate > 60; Glucose Random 81 mg/dL (60-115); Sodium 136 mmol/L (135-145)
[2024-08-01 07:42] VITALS: BP 112/57; PULSE 78; RESP 17; TEMP 37; O2SAT 95
[2024-08-01] MEDS: Tamsulosin HCL 0.4 MG CAPSULE PO (08:14)
[2024-08-01] MEDS: MESALAMINE 0.375 GM 1.5 GM PO (08:14)
[2024-08-01] MEDS: clonazePAM 1 MG TABLET PO ×2 (08:14→15:13)
[2024-08-01] MEDS: Mirabegron 50 MG TAB.ER.24H PO (08:15)
[2024-08-01] MEDS: Cholecalciferol (Vitamin D3) 25 MCG TABLET 125 MCG PO (08:15)
[2024-08-01] MEDS: lamoTRIgine 100 MG TABLET 200 MG PO (08:15)
[2024-08-01] MEDS: valACYclovir HCL 500 MG TABLET PO (08:15)
[2024-08-01] MEDS: Docusate Sodium 100 MG CAPSULE PO (08:15)
[2024-08-01] MEDS: Famotidine 20 MG TABLET PO (08:16)
[2024-08-01] MEDS: Lactulose 20 GM/30 ML SOLUTION PO ×2 (08:16→15:13)
[2024-08-01] MEDS: 0.9 % Sodium Chloride Flush 3 ML SYRINGE IVFLUSH ×2 (08:16→15:14)
[2024-08-01] MEDS: PHENobarb/Hyoscy/Atropine/Scop 10 ML ELIXIR 5 ML PO ×2 (08:16→12:24)
[2024-08-01] MEDS: Vortioxetine Hydrobromide 20 MG TABLET PO (08:16)
[2024-08-01] MEDS: Pramoxine HCl 1 % Rectal Foam 15 GM 1 APPL PR (08:22)
[2024-08-01] MEDS: Enoxaparin Sodium 40 MG/0.4 ML SYRINGE SUBCUT (09:39)
--- NOTE | 2024-08-01 12:10 | PM.GIPN ---
Subjective Subjective Date of Service: 08/01/24 Interval History: Seen at bedside. Reports still has not had any BMs. Abd cramping and bloating persists. 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 There is scattered stool in the proximal descending colon. There is normal retrograde opacification of entire colon extending to cecum with diluted Gastrografin. There is a proximal sigmoid colon partially constrictive lesion seen on several images. Findings are suspicious for underlying lesion. Correlate with colonoscopy findings Reports pain got significant worse after the enema. Critical Care Time (minutes): 0 Physical Exam Vital Signs: Vital Signs: Last Vital Signs Temp 98.6 F 08/01/24 07:42 Pulse 78 08/01/24 07:42 Resp 17 08/01/24 07:42 BP 112/57 L 08/01/24 07:42 Pulse Ox 95 08/01/24 07:42 O2 Del Method Room Air 08/01/24 07:42 BMI result Body Mass Index 39.3 No apparent distress Nonicteric Abdomen soft, nondistended Alert and oriented x3, normal gait Objective Data Labs 08/01/24 06:02 08/01/24 06:02 Labs: Laboratory Results - last 24 hr 07/31/24 08/01/24 19:21 06:02 WBC 7.4 RBC 4.02 L Hgb 11.0 L Hct 33.8 L MCV 84.1 MCH 27.4 MCHC 32.5 RDW 14.4 Plt Count 355 MPV 9.8 Immature Gran % (Auto) 0.4 Neut % (Auto) 49.5 Lymph % (Auto) 41.0 H [place] % (Auto) 6.7 Eos % (Auto) 2.3 Baso % (Auto) 0.1 Lymph # (Auto) 3.0 [place] # (Auto) 0.5 Eos # (Auto) 0.2 Baso # (Auto) 0.0 Abs Immat Gran (auto) 0.03 Absolute Neuts (auto) 3.6 Absolute Nucleated RBC 0.000 Nucleated RBC % (auto) 0.0 Sodium 136 Potassium 4.0 Chloride 104 Carbon Dioxide 26 Anion Gap 10 L BUN 8 L Creatinine 0.63 Estim Creat Clear Calc 136.5 Estimated GFR > 60 Random Glucose 81 Calcium 8.4 Troponin I High Sens < 2.7 Microbiology Microbiology Results: Microbiology 07/29/24 Unknown Urine clean catch - Clean Catch Midstream Urine Culture - Final Klebsiella oxytoca Procedures Date of Service Date of Service: 08/01/24 Progress Note: A&P Assessment and plan (1) Colon wall thickening: Status: Acute (2) Stricture of sigmoid colon: Status: Acute Plan Reviewed based on data available, narrowing does not appear to be secondary to usual suspects of inflammatory bowel vs chronic ischemia or diverticular disease. will review with surgery colleague if pt candidate for partial colon resection given no clinical progression with medical management so far. Time Spent With Patient Time: Total time managing care of this patient today ____ minutes. Quality Stroke Does the patient have a stroke diagnosis?: No VTE Prior VTE?: No VTE Risk Level:: Medical - moderate - high VTE Device Contraindication: N/A - Device Ordered VTE Drug Contraindication: Treatment Not Indicated
[2024-08-01] MEDS: cefTRIAXone sodium 1 GM VIAL IVPUSH (12:24)
--- NOTE | 2024-08-01 12:29 | MHC.CM.PN ---
Addendum entered by Megan Armenta RN 08/01/24 15:13: MEDICALLY CLEARED FOR DC HOME. WILL [facility] [facility]. WILL TRANSPORT AFTER 4PM. RN AWARE. Original Note: Per MD rounds patient not medically cleared for dc. CM will continue to follow.
--- NOTE | 2024-08-01 15:12 | P.DS_ITS ---
DS: Providers Provider Date of Service: 08/01/24 Date of admission: 07/25/24 23:10 Date of discharge: 08/01/24 Primary care physician: Nonstaff Physician Consults: 07/25/24 23:10 Consult to Gastroenterology Routine Consulting Provider: Apoorva Villanueva Reason for consultation: intractable abd pain, constipation Has provider been notified: No 07/26/24 11:04 Consult to General Surgery Routine Consulting Provider: [facility] General Surgeons Reason for consultation: abd pain DS: Diagnosis Discharge Diagnosis (1) Colon wall thickening: Status: Acute (2) Stricture of sigmoid colon: Status: Acute (3) Proctosigmoiditis: Status: Acute (4) Obesity, Class II, BMI 35-39.9: Status: Acute (5) Intractable abdominal pain: Status: Acute (6) Constipation: Status: Acute DS: Summary Hospital Course Hospital Course: Admission note HPI Pt is a 43 yo f with a pmhx significant for R occipital nerualgia, FND, IBS, interstitial cystitis, GERD, obesity, anxiety, depression, epidural abscess L2- L5, and multiple abd surgeries (randa, appy, hyst), who presented to the ED due to no BM x6 days, unable to pass flatus for unknown period of time, nausea, and intractable abd pain causing inability to eat. She reports intermittent fever (none here)and nausea but no vomiting. she has chronic GI issues and from the record review she has IBS and bile acid diarrhea on anti-diarrheals including questran to help with chronic diarrhea. she is also having GERD and epigastric pain. no melena or rectal bleeding. General surgery consulted in the ED and suggested admission for possible colonoscopy given colitis on CT and possiblilty of undiagnosed IBD. the pt reported a hx of ulcers on her colonoscopy. Hospital course The patient was admitted for evaluation of Constipation with intractable abdominal pain. A CT scan on presentation showed narrowing of sigmoid colon among other findings. GI evaluated the patient and sigmoidoscopy revealed some narrowing but nonobstructive, biopsies taken showing no malignancy but colon mucosa and prominent lymphoid aggregate. Gastrografin enema was done showing concern over possible mass because of the narrowing . Low concern for malignancy as she has been having these abnormalities for many years and malignancy would likey increase in size. She might need outpatient EUS or surgical colectomy of the affected part. Has elevated ESR, CRP; could be inflammatory changes, to start hydrocortisone Foam and Meselamin per dr Jackson who suggested follow up in 1 month for repeat Colonoscopy. for now GI recommendations to suppository steroids and rectal foam to relieve symptoms. to be followed as outpatient with [facility] GI. She was seen by General surgeon Dr Allen who had no intervention plans at this point. reevaluated by Dr Oseguera who suggested surgery by next Mon\Tue but the patient refused as she has family occasion next week and does not want to have surgery prior to that. Dr Temple suggested outpatient surgery as alternat sergey and patient agreed to follow with them in clinic. I explained to her the need to come back to the emergency for any worsening pain, vomiting or inability to pass bowel movement. she understand and agrees. Pain medications weaned as the patient started moving her bowels partially; mainly liquid form after starting Lactulose which will be added to her home medications. Diet was advanced with good tolerance. To be discharged on Tylenol, Ibuprofen and Dilaudid as needed. For Mood disorder. Continue Lamictal, Klonopin For Morbid obesity Weight loss recommended Discharge plan Advance diet gradually, have multiple snacks and avoid large meals Zofran for nausea as needed Hydrocortisone supp daily rectal Foam daily Mesalamine daily You can take Tylenol and Ibuprofen for pain 3 times a day each Take Dilaudid as needed for severe pain Continue Laxatives as prescribed Come back to ED for any worsening pain or vomiting To follow up with [facility] Surgery within [address] planning[address] Dr Allen\[place] Time Attestation Discharge Coordination Time (in mins): 47 Quality: Safe Use of Opioids Does Pt have an Active Cancer Diagnosis on the Problem List?: No Quality: Stroke Does the patient have a stroke diagnosis?: No Physical Exam Vital Signs: Vital Signs: Last Vital Signs Temp 98.6 F 08/01/24 07:42 Pulse 78 08/01/24 07:42 Resp 17 08/01/24 07:42 BP 112/57 L 08/01/24 07:42 Pulse Ox 95 08/01/24 07:42 O2 Del Method Room Air 08/01/24 07:42 BMI result Body Mass Index 39.3 Const: Other: Constitutional : Awake, interactive, not in distress Neck : Normal inspection, Supple Cardiovascular : RRR, no JVP, no lower extremity edema Respiratory : good bilateral air entry, no crackles, wheezes or rhonchi Gastrointestinal: soft, lax, Normal bowel sounds, mildly distended but no tenderness or surgical signs Skin : Warm, Dry Neurological : Alert & oriented x3, No focal deficit DS: Data Data Completed and Pending Completed studies during hospitalization [Text1]: Pending at discharge 07/26/24 11:44 Surgical [PTH] Routine Labs on day of discharge: Laboratory Results - last 24 hr 07/31/24 08/01/24 19:21 06:02 WBC 7.4 RBC 4.02 L Hgb 11.0 L Hct 33.8 L MCV 84.1 MCH 27.4 MCHC 32.5 RDW 14.4 Plt Count 355 MPV 9.8 Immature Gran % (Auto) 0.4 Neut % (Auto) 49.5 Lymph % (Auto) 41.0 H [place] % (Auto) 6.7 Eos % (Auto) 2.3 Baso % (Auto) 0.1 Lymph # (Auto) 3.0 [place] # (Auto) 0.5 Eos # (Auto) 0.2 Baso # (Auto) 0.0 Abs Immat Gran (auto) 0.03 Absolute Neuts (auto) 3.6 Absolute Nucleated RBC 0.000 Nucleated RBC % (auto) 0.0 Sodium 136 Potassium 4.0 Chloride 104 Carbon Dioxide 26 Anion Gap 10 L BUN 8 L Creatinine 0.63 Estim Creat Clear Calc 136.5 Estimated GFR > 60 Random Glucose 81 Calcium 8.4 Troponin I High Sens < 2.7 Imaging Chest x-ray: Radiologist's impression: ITS Impressions Enema w/Water Soluble 07/31/24 11:20 IMPRESSION: There is a distended colon with gas on a agriculture specialist exam. There is scattered stool in the proximal descending colon. There is normal retrograde opacification of entire colon extending to cecum with diluted Gastrografin. There is a proximal sigmoid colon partially constrictive lesion seen on several images. Findings are suspicious for underlying lesion. Correlate with colonoscopy findings Electronically signed by: Vladimir Riley MD 07/31/2024 01:34 PM EDT Discharge Plan Discharge Anticipated Discharge Date/Time: 08/01/24 15:00 Patient Disposition: Home, Self-Care Discharge Diagnosis: Stricture of sigmoid colon Referrals: Physician,Nonstaff [Primary Care Provider] - 1 Week Discharge Medications: New lactulose 10 gram/15 mL Solution 20 g PO BID Qty: 1200 0RF pramoxine 1 % Foam 1 appl NC BID Qty: 15 2RF mesalamine 0.375 gram Capsule,Extended Release 24hr 1.5 g PO DAILY Qty: 90 0RF hydrocortisone 100 mg/60 mL Enema 100 mg NC DAILY@1700 Qty: 1260 0RF ondansetron 4 mg tablet,disintegrating 4 mg PO Q8H PRN (Reason: nausea and vomiting) Qty: 30 1RF hydromorphone 2 mg tablet 1 mg PO Q6H MDD 4 mg PRN (Reason: pain (scale score 7-10)) Qty: 20 0RF Rx Instructions: Partial Fill upon patient request. Continued sennosides [Natural Senna Laxative] 8.6 mg tablet 17.2 mg PO BEDTIME Qty: 60 3RF magnesium hydroxide [Milk of Magnesia] 400 mg/5 mL suspension 10 ml PO DAILY PRN (Reason: constipation) Qty: 355 0RF valacyclovir 500 mg tablet 500 mg PO DAILY Trintellix 20 mg tablet 20 mg PO DAILY lamotrigine 200 mg tablet 200 mg PO DAILY Rx Instructions: 200mg in morning, 25mg at night lamotrigine 25 mg tablet 50 mg PO BEDTIME Rx Instructions: 200mg in morning, 25mg at night bisacodyl 5 mg tablet,delayed release (DR/EC) 10 mg PO DAILY magnesium oxide 400 mg magnesium capsule 400 mg PO DAILY mirabegron [Myrbetriq] 50 mg tablet extended release 24 hr 50 mg PO DAILY fluticasone propionate 50 mcg/actuation [place],Suspension 2 spray INTRANASAL DAILY PRN (Reason: Allergy Symptoms) Rx Instructions: administer into each nostril esomeprazole magnesium [Nexium] 40 mg Capsule,Delayed Release(Dr/Ec) 40 mg PO DAILY famotidine 20 mg tablet 20 mg PO BID tamsulosin 0.4 mg capsule 0.4 mg PO DAILY hydroxyzine HCl 25 mg tablet 25 mg PO BEDTIME clonazepam 1 mg tablet 1 mg PO TID eszopiclone 3 mg tablet 3 mg PO BEDTIME cholecalciferol (vitamin D3) 125 mcg (5,000 unit) capsule 125 mcg PO DAILY Qty: 90 3RF Citrucel 500 mg tablet 500 mg PO DAILY Qty: 90 2RF Rx Instructions: take it with full glass of water Discharge Orders: Discharge Order (Routine); Ordered 08/01/24 Ordered By: Britton Esquivel Diet: Advance to usual diet Activity on Discharge: As tolerated Stand Alone Forms: Patient Portal Discharge page Print Language: Kazakh Care Plan Goals: Advance diet gradually, have multiple snacks and avoid large meals Zofran for nausea as needed Hydrocortisone supp daily rectal Foam daily Mesalamine daily You can take Tylenol and Ibuprofen for pain 3 times a day each Take Dilaudid as needed for severe pain Continue Laxatives as prescribed Come back to ED for any worsening pain or vomiting To follow up with [facility] Surgery within [address] Dr Allen\[place] Health Concerns: Sigmoid colon stricture and constipation Plan of Treatment: Laxatives pain management Surgery follow up Assessment: as above
== END 2024-08-01 16:45 | disposition home or self-care (01) | DRG 254 ==
LOC: HO.ED 17:25 → HO.EDOVER 23:22 → HO.S3 07-26 07:46
PROVIDERS: Internal Medicine; Physician Assistant; Physician Assistant Medical; Student in an Organized Health Care Education/Training Program; Admitting Provider Physician Assistant; Emergency Provider Emergency Medicine; PCP Internal Medicine; Visit Provider Student in an Organized Health Care Education/Training Program
PROC: 0DJD8ZZ Inspection of Lower Intestinal Tract, Via Natural or Artificial Opening Endoscopic (ICD-10-PCS; CPT 45330; principal; 2024-07-26 10:45)
DX: K58.1 Irritable bowel syndrome with constipation (principal); K63.3 Ulcer of intestine; K56.699 Other intestinal obstruction unspecified as to partial versus complete obstruction; N30.10 Interstitial cystitis (chronic) without hematuria; I95.2 Hypotension due to drugs; E66.812 Obesity, class 2; K64.8 Other hemorrhoids; F39 Unspecified mood [affective] disorder; K64.4 Residual hemorrhoidal skin tags; M54.81 Occipital neuralgia; T40.2X5A Adverse effect of other opioids, initial encounter; Z71.3 Dietary counseling and surveillance; Z68.39 Body mass index [BMI] 39.0-39.9, adult; Z79.899 Other long term (current) drug therapy
CPT/HCPCS: 36415; 74018; 74177; 74270; 80048; 80053; 81001; 81003; 82947; 83690; 83735; 84443; 84484; 84702; 85025; 85027; 85652; 86140; 87086; 87088; 87186; 88305; 93005; 99285; J0696; J1171; J1200; J1650; J1885; J2003; J2270; J2405; J2704; J7120; Q9967

== ENCOUNTER → 2024-07-25 16:46 | Outpatient (BNV) | payer OTHER, SELFPAY | PROVIDERS: Emergency Provider Emergency Medicine; Visit Provider Specialist | DX: K56.41 Fecal impaction (principal) | CPT/HCPCS: 74018; 74177 ==

== ENCOUNTER → 2024-07-25 16:50 | Outpatient (BNV) | payer OTHER, SELFPAY | PROVIDERS: Admitting Provider Physician Assistant; Emergency Provider Emergency Medicine; Visit Provider Internal Medicine | DX: R00.0 Tachycardia, unspecified (principal) | CPT/HCPCS: 93010 ==

== ENCOUNTER 2024-07-25 23:10 | Outpatient (BNV) | payer OTHER, SELFPAY | END 2024-07-26 10:25 | PROVIDERS: Admitting Provider Physician Assistant; Emergency Provider Emergency Medicine; Visit Provider Radiology Vascular & Interventional Radiology | DX: K59.39 Other megacolon (principal) | CPT/HCPCS: 74018 ==

== ENCOUNTER 2024-07-25 23:10 | Outpatient (BNV) | payer OTHER, SELFPAY | END 2024-07-31 19:06 | PROVIDERS: Admitting Provider Physician Assistant; Emergency Provider Emergency Medicine; Visit Provider Internal Medicine Cardiovascular Disease | DX: R07.9 Chest pain, unspecified (principal) | CPT/HCPCS: 93010 ==

== ENCOUNTER 2024-07-25 23:10 | Outpatient (BNV) | payer OTHER, SELFPAY | END 2024-07-31 11:00 | PROVIDERS: Admitting Provider Physician Assistant; Emergency Provider Emergency Medicine; Visit Provider Radiology Diagnostic Radiology | DX: K56.690 Other partial intestinal obstruction (principal) | CPT/HCPCS: 74270 ==

== ENCOUNTER → 2024-07-25 23:10 | Outpatient (BNV) | payer OTHER, SELFPAY | PROVIDERS: Admitting Provider Physician Assistant; Emergency Provider Emergency Medicine; Visit Provider Internal Medicine | DX: K63.9 Disease of intestine, unspecified (principal); K63.89 Other specified diseases of intestine | CPT/HCPCS: 99232 ==

== ENCOUNTER → 2024-07-25 23:10 | Outpatient (BNV) | payer OTHER, SELFPAY | PROVIDERS: Admitting Provider Physician Assistant; Emergency Provider Emergency Medicine; Visit Provider Surgery | DX: K56.699 Other intestinal obstruction unspecified as to partial versus complete obstruction (principal) | CPT/HCPCS: 99232; 99499 ==

== ENCOUNTER → 2024-07-25 23:10 | Outpatient (BNV) | payer OTHER, SELFPAY | PROVIDERS: Admitting Provider Physician Assistant; Emergency Provider Emergency Medicine; Visit Provider Physician Assistant | DX: E66.812 Obesity, class 2 (principal) | CPT/HCPCS: 99232 ==

== ENCOUNTER 2024-08-06 09:43 | Outpatient (AMB) | payer OTHER, SELFPAY ==
--- NOTE | 2024-08-06 10:04 | MHC.OFFVIS ---
Vital Signs 08/06/24 10:18 Height 5 ft 3 in Weight 232 lb BMI 41.1 BP 131/68 Blood Pressure Location Rt brachial Position Sitting Pulse 108 H Intake Visit Reasons: Stricture of sigmoid colon Intake Note: Patient seen at [facility] [place] 07-25-2024. Was referred for stricture of sigmoid colon. Patient c/o: not sure if had BM but something came out from the back. Taking pain meds. 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 She does have a diagnosis of IBS. She describes having problems with severe diarrhea including incontinence since 2020. Often times, she would also have severe constipation I would not have a good bowel movement for several days. She therefore has had chronic abdominal pain. She had a flexible sigmoidoscopy as an inpatient last week and this is not reveal any obstruction in the sigmoid. However, she had a barium enema test showing suggestion of a narrowing in the sigmoid. She has been desperate to have a ?colostomy? done and says that she prefers having a colostomy instead of going through diarrhea and incontinence and constipation. She says that she also has chronic pain because of her GI issues. She describes being ?desperate? for having a colostomy says she says she has tired of going through all these alternating diarrhea and constipation with incontinence. She always feels bloated. She has been followed by GI for many years now because of her chronic GI issues with reflux, diarrhea and constipation. She says she was told she had IBS . She had a colonoscopy about 2 years ago in [place] and she she had a small rectal ulcer at that time. [facility] Medical History (Updated 08/06/24 @ 10:16 by DOUG Felipe) delivery delivered Interstitial cystitis IBS (irritable bowel syndrome) Occipital neuralgia of right side History of colitis Gastric ulcer History of suicidal ideation Anxiety Agoraphobia MDD (major depressive disorder) PTSD (post-traumatic stress disorder) Surgical History H/O: hysterectomy Hx of cholecystectomy (~12/2022) Family History Father Prostate cancer Maternal Uncle Colon cancer Maternal Grandmother Breast cancer Social History Household Members: Spouse, Family and Children Housing: House Do you presently have visiting nurse or other home services: Yes (MATERIAL DAMAGE ADJUSTER to help with ADLs) Comment: unknown at time report written Patient Tobacco Use Status: Never used Tobacco service: No Review of Systems Const Denies chills and Denies fever(s) Card Denies chest pain, Denies dyspnea and Denies dyspnea on exertion Resp Denies cough, Denies dyspnea and Denies dyspnea on exertion GI Denies hematochezia and Denies change in bowel habits Denies hematuria Musc Denies back pain and Denies limited range of motion Neuro Denies focal weakness and Denies convulsions Psych Denies depression and Denies mood swings Physical Exam Vital Signs: Last Vital Signs Pulse 108 H 08/06/24 10:18 BP 131/68 08/06/24 10:18 BMI result Body Mass Index 41.1 Const Other: Obese General: comfortable and no acute distress Orientation/consciousness: patient oriented x3 Neck Neck: Yes no lymphadenopathy Resp Auscultation: clear to auscultation bilaterally Cardio Rhythm: regular rhythm GI Palpation (GI): Soft to palpation, nontender and no guarding Neuro General: patient oriented x3 Assessment & Plan Assessment & Plan (1) Stricture of sigmoid colon: Code(s): K56.699 - Other intestinal obstruction unspecified as to partial versus complete obstruction Category: Medical Plan: She has this long history of diarrhea and constipation and her barium enema test suggest a stricture in the sigmoid. This was not obvious on flexible sigmoidoscopy although there was note of some edema in the area .. She is very the aspirate about her constipation, diarrhea and incontinence. She says that she would rather have a colostomy and she had stated this even last week I explained to her that even with a colostomy, she may have constipation problems as well as we are actually uncertain as to the etiology although there is note of some narrowing in her sigmoid without any tumor or lesion. She says that she has severe irritation in her anus and buttocks because of her incontinence whenever she has diarrhea and states that she has been wearing a diaper for 3 years now. I explained to her that her overall problems may be secondary to a functional problem with her colon rather than a real stricture. Even then, she says that colostomy we will help with her diarrhea and incontinence. She says she has would rather not wear diapers anymore. I explained to her the technique of hand assisted laparoscopic colostomy possible sigmoid resection. I reviewed the risks including but not limited to bleeding, infections, injury to other organs including bowel, urinary tract, stoma prolapse and hernia, inherent risks of anesthesia, as well as the benefits and alternatives. She understands and says she really wants to have this done as soon as possible. She understands that she may continue to have symptoms of abdominal pain and constipation with the colostomy. Medications: New sodium,potassium,mag sulfates 17.5-3.13-1.6 gram (Suprep Bowel Prep Kit) DILUTE; drink full amount early evening before AND next morning at least 2 hr before procedure; follow w 960 mL water PO 354 mL 0RF Coding Level of Care Code Est Pt Level 4 (61047) Diagnoses Stricture of sigmoid colon K56.699
[2024-08-06 10:18] VITALS: BP 131/68; PULSE 108; BMI 41.1
--- OUTSIDE RECORDS SUMMARY | 2024-08-06 10:36 | XMS_ITS | Clinical Summary ---
Author Organization [facility] Address [address] [place] [address] Care Team Providers Care Tool Designer Apprentice Name Role Phone Nori Posey MD Primary Care Provider [phone] Allergies Active Allergy Reactions Criticality Noted Date Comments [place] 08/30/2023 Medications Medication Sig Dispensed Refills Start [...] age to complete this topic Care Teams Tool Designer Apprentice Relationship Specialty Start Date End Date Nori Posey MD [address] [place] [id number] PCP - General Internal Medicine 08/01/23
== END 2024-08-06 10:40 | disposition home or self-care (01) ==
LOC: HO.HGS 09:43
PROVIDERS: Visit Provider Surgery
DX: K56.699 Other intestinal obstruction unspecified as to partial versus complete obstruction (principal)
CPT/HCPCS: 99214

== ENCOUNTER → 2024-08-06 09:43 | Outpatient (BNVA) | payer OTHER, SELFPAY | PROVIDERS: Visit Provider Surgery | DX: K56.699 Other intestinal obstruction unspecified as to partial versus complete obstruction (principal) | CPT/HCPCS: 99212 ==

== ENCOUNTER 2024-08-12 13:04 | Inpatient (IN) | payer OTHER, SELFPAY ==
[2024-08-07 08:27] VITALS: BMI 41.1
--- NOTE | 2024-08-11 10:24 | HO.ANESPROP2 ---
Documented by User: Ivy Saravia NP 08/11/24 10:31 HPI - Anesthesia Eval Consult details Narrative: 43yo F for Hand Assist Laparoscopic Colostomy Creation,possible Sigmoid Rescetion,possible Open Allergy: Propofol and morphine cause itching - Rec'd propofol for flex sig 07/2024 without issue [facility] Admit 07/25-08/01/24 Hospital course The patient was admitted for evaluation of Constipation with intractable abdominal pain. A CT scan on presentation showed narrowing of sigmoid colon among other findings. GI evaluated the patient and sigmoidoscopy revealed some narrowing but nonobstructive, biopsies taken showing no malignancy but colon mucosa and prominent lymphoid aggregate. Gastrografin enema was done showing concern over possible mass because of the narrowing . Low concern for malignancy as she has been having these abnormalities for many years and malignancy would likey increase in size. She might need outpatient EUS or surgical colectomy of the affected part. Has elevated ESR, CRP; could be inflammatory changes, to start hydrocortisone Foam and Meselamin per dr Jackson who suggested follow up in 1 month for repeat Colonoscopy. for now GI recommendations to suppository steroids and rectal foam to relieve symptoms. to be followed as outpatient with [facility] GI. She was seen by General surgeon Dr Allen who had no intervention plans at this point. reevaluated by Dr Oseguera who suggested surgery by next Sun\Sun but the patient refused as she has family occasion next week and does not want to have surgery prior to that. Dr Temple suggested outpatient surgery as alternative and patient agreed to follow with them in clinic. I explained to her the need to come back to the emergency for any worsening pain, vomiting or inability to pass bowel movement. she understand and agrees. Pain medications weaned as the patient started moving her bowels partially; mainly liquid form after starting Lactulose which will be added to her home medications. Diet was advanced with good tolerance. To be discharged on Tylenol, Ibuprofen and Dilaudid as needed. For Mood disorder. Continue Lamictal, Klonopin For Morbid obesity Weight loss recommended PMF Active Problems Active Problems: All Active Problems Occipital neuralgia (Acute) Inflammatory bowel disease (Acute) Epidural abscess, L2-L5 (Acute) Post-dural puncture headache (Acute) History of colitis (Acute) Interstitial cystitis (Acute) Occipital neuralgia of right side (Acute) Past Medical History Medical History Hx of flexible sigmoidoscopy Proctosigmoiditis Stricture of sigmoid colon Colon wall thickening Obesity, Class II, BMI 35-39.9 IBS (irritable bowel syndrome) History of colitis Gastric ulcer Interstitial cystitis Occipital neuralgia of right side History of suicidal ideation Anxiety Agoraphobia MDD (major depressive disorder) PTSD (post-traumatic stress disorder) Family History Family History Father Prostate cancer Maternal Uncle Colon cancer Maternal Grandmother Breast cancer Surgical History Surgical History Hx of colonoscopy Hx of section H/O: hysterectomy Hx of cholecystectomy (~12/2022) Social History Social History Household Members: Spouse, Family and Children Housing: House Do you presently have visiting nurse or other home services: Yes (NURSE HEALTHCARE MANAGER to help with ADLs) Comment: unknown at time report written Patient Tobacco Use Status: Never used Tobacco service: No Meds Allergies Allergy/AdvReac Type Severity Reaction Status Date / Time propofol Allergy Intermediate Itching Verified 08/12/24 12:08 morphine Allergy Mild Itching Verified 08/12/24 12:08 Home Medications ?Medication ?Instructions ?Recorded ?Confirmed ?Last Taken ?Type lamotrigine 200 mg tablet 200 mg PO DAILY 01/02/23 08/07/24 07/25/24 History valacyclovir 500 mg tablet 500 mg PO DAILY 01/02/23 08/07/24 07/25/24 History vortioxetine 20 mg tablet 20 mg PO DAILY 01/02/23 08/07/24 07/25/24 History (Trintellix) clonazepam 1 mg tablet 1 mg PO TID 01/08/24 08/07/24 07/25/24 History famotidine 20 mg tablet 20 mg PO BID 01/08/24 08/07/24 07/25/24 History hydroxyzine HCl 25 mg tablet 25 mg PO BEDTIME 01/08/24 08/07/24 07/24/24 History lamotrigine 25 mg tablet 50 mg PO BEDTIME 01/08/24 08/07/24 07/24/24 History bisacodyl 5 mg tablet,delayed 10 mg PO DAILY 07/25/24 08/07/24 07/25/24 History release esomeprazole magnesium 40 mg 40 mg PO DAILY 07/25/24 08/07/24 07/25/24 History capsule,delayed release (Nexium) fluticasone propionate 50 2 spray intranasal DAILY PRN 07/25/24 08/07/24 Unknown History mcg/actuation nasal Allergy Symptoms spray,suspension magnesium oxide 400 mg PO DAILY 07/25/24 08/07/24 07/25/24 History mirabegron 50 mg tablet,extended 50 mg PO DAILY 07/25/24 08/07/24 07/25/24 History release 24 hr (Myrbetriq) eszopiclone 3 mg tablet (Lunesta) 3 mg PO BEDTIME 08/06/24 08/07/24 Unknown History Exam Height,Weight and Vital Signs: Height 5 ft 3 in Weight 105.233 kg Pertinent Lab Results Pertinent Lab Results: Laboratory Tests 08/01/24 06:02 WBC 7.4 Hgb 11.0 L Hct 33.8 L Plt Count 355 Sodium 136 Potassium 4.0 Chloride 104 Carbon Dioxide 26 BUN 8 L Creatinine 0.63 Narrative Narrative: EKG 07/2024 Vent. Rate : 97 BPM Atrial Rate : 97 BPM P-R Int : 144 ms QRS Dur : 90 ms QT Int : 338 ms P-R-T Axes : 46 43 35 degrees QTcB Int : 429 ms Normal sinus rhythm Normal ECG When compared with ECG of 25-Jul-2024 17:28, T wave inversion now evident in Anterior leads Assessment and Plan Assessment Anesthesia Assessment: Chart Reviewed Documented by User: Suzette Brannon MD 08/12/24 14:04 [facility] Past Medical History Medical History Hx of flexible sigmoidoscopy Proctosigmoiditis Stricture of sigmoid colon Colon wall thickening Obesity, Class II, BMI 35-39.9 IBS (irritable bowel syndrome) History of colitis Gastric ulcer Interstitial cystitis Occipital neuralgia of right side History of suicidal ideation Anxiety Agoraphobia MDD (major depressive disorder) PTSD (post-traumatic stress disorder) Family History Family History Father Prostate cancer Maternal Uncle Colon cancer Maternal Grandmother Breast cancer Surgical History Surgical History Hx of colonoscopy Hx of section H/O: hysterectomy Hx of cholecystectomy (~12/2022) History of Problems with Anesthesia: No Social History Social History Household Members: Spouse, Family and Children Housing: House Do you presently have visiting nurse or other home services: Yes (NURSE HEALTHCARE MANAGER to help with ADLs) Comment: unknown at time report written Patient Tobacco Use Status: Never used Tobacco service: No Meds Allergies Allergy/AdvReac Type Severity Reaction Status Date / Time propofol Allergy Intermediate Itching Verified 08/12/24 12:08 morphine Allergy Mild Itching Verified 08/12/24 12:08 Home Medications ?Medication ?Instructions ?Recorded ?Confirmed ?Last Taken ?Type lamotrigine 200 mg tablet 200 mg PO DAILY 01/02/23 08/07/24 07/25/24 History valacyclovir 500 mg tablet 500 mg PO DAILY 01/02/23 08/07/24 07/25/24 History vortioxetine 20 mg tablet 20 mg PO DAILY 01/02/23 08/07/24 07/25/24 History (Trintellix) clonazepam 1 mg tablet 1 mg PO TID 01/08/24 08/07/24 07/25/24 History famotidine 20 mg tablet 20 mg PO BID 01/08/24 08/07/24 07/25/24 History hydroxyzine HCl 25 mg tablet 25 mg PO BEDTIME 01/08/24 08/07/24 07/24/24 History lamotrigine 25 mg tablet 50 mg PO BEDTIME 01/08/24 08/07/24 07/24/24 History bisacodyl 5 mg tablet,delayed 10 mg PO DAILY 07/25/24 08/07/24 07/25/24 History release esomeprazole magnesium 40 mg 40 mg PO DAILY 07/25/24 08/07/24 07/25/24 History capsule,delayed release (Nexium) fluticasone propionate 50 2 spray intranasal DAILY PRN 07/25/24 08/07/24 Unknown History mcg/actuation nasal Allergy Symptoms spray,suspension magnesium oxide 400 mg PO DAILY 07/25/24 08/07/24 07/25/24 History mirabegron 50 mg tablet,extended 50 mg PO DAILY 07/25/24 08/07/24 07/25/24 History release 24 hr (Myrbetriq) eszopiclone 3 mg tablet (Lunesta) 3 mg PO BEDTIME 08/06/24 08/07/24 Unknown History Exam Airway Mallampati Class: III TM Dist: >3cm Neck ROM: Full Loose/Missing/Broken Teeth: No Heart: RRR Lungs: CTA Assessment and Plan Assessment Anesthesia Assessment: Anesthesia Plan Discussed Final Anesthetic Review History of Problems with Anesthesia: No NPO: Yes ASA Class: III Final Preanesthetic Review: Meds/Allgs Chart Reviewed, Consent Obtained/Reviewed and Anes Risks/Benef Reviewed Patient Risk: Intermediate Procedure Risk: Intermediate Anesthetic Plan Anesthetic Plan: GA Disposition: Standard PACU
[2024-08-12] VITALS (10 sets, daily range): BP systolic 109–145; BP diastolic 60–91; PULSE 83–96; RESP 10–20; TEMP 36.2–36.9; O2SAT 93–100; BMI 40.4; BMI 42.6
--- NOTE | ~2024-08-12 | XR_ITS ---
CLINICAL HISTORY: Fever of unknown source 2 view chest x-ray. Comparison: None Findings: The lungs are adequately expanded. No focal consolidation. No effusion or pneumothorax. Cardiac and mediastinal contours are within normal limits. No acute osseous abnormality Impression: No acute process. This document has been electronically signed by: Speedy Martinez MD on 08/16/2024 13:59:08
--- NOTE | ~2024-08-12 | CT_ITS ---
CLINICAL HISTORY: postop fever, s p colostomy CT abdomen and pelvis with contrast Comparison: CT - CT ABDOMEN PELVIS W IV CON - 08/16/24 13:41 EDT Findings: No consolidation or effusion. There is a probable abscess within the midline abdominal subcutaneous tissues, measuring up to 3.5 x 2 cm. The left lower quadrant ostomy is patent. Trace free fluid in the pelvis. No evidence of intraperitoneal abscess. There is abnormal thickening of the colon in the region of the midsigmoid at the level of the Margoth pouch. There is moderate stranding anterior to this and there are small scattered foci of free air. No bowel obstruction or pneumatosis. The gallbladder is absent. The liver, spleen, adrenal glands and pancreas are unremarkable. Kidneys, ureters and bladder are normal. No acute osseous finding. Impression: Probable developing abscess within the anterior midline soft tissues containing gas and fluid as detailed. Abnormal thickening along the region of the Margoth pouch as detailed. Scattered foci of free air within the abdomen. No intraperitoneal abscess at this point. This document has been electronically signed by: Speedy Martinez MD on 08/16/2024 14:19:03
--- NOTE | 2024-08-12 12:56 | MHC.SHP ---
Pre-Procedural Eval Section A - 24 Hr Update-Section A only Date of Service: 08/12/24 The patient is an INPATIENT: No Changes since office visit: No Cold of Flu in the past 2 weeks, No New Medical Problems, No Changes in Medication and No Patient answered all questions The patient has been examined within 24 hours of the surgical procedure. The History & Physical has been completed within 30 days and I have reviewed it.: Yes Section B - Complete if H&P > 30 days Chief Complaint: Other intestinal obstruction unspecified Allergies: Allergies Allergy/AdvReac Type Severity Reaction Status Date / Time propofol Allergy Intermediate Itching Verified 08/12/24 12:08 morphine Allergy Mild Itching Verified 08/12/24 12:08 Plan I have reviewed the history and physical and performed a pertinent physical examination on my patient. No changes have occurred unless specified. Time Spent With Patient Time: Total time managing care of this patient today ____ minutes.
--- NOTE | 2024-08-12 13:34 | HO.OSTOMY ---
Ostomy Site Marking Patient seen in Pre-Op for brief pre-operative ostomy teaching and stoma site selection/marking. ?The patient was instructed in very basic GI anatomy and stoma creation, and teaching to be available after surgery should a stoma be created. ?Throughout the visit the patient has some questions related to the ostomy and future care of the ostomy. ?Instruction was given on the purpose of pre-operative stoma site selection and marking: ?the importance of identifying a location within sight, avoiding creases on a relatively flat area of the abdomen, and siting within the large muscle of the abdomen for support. ?She agreed with the procedure. The patient's abdomen was visualized and palpated in the sitting, standing, bending, and lying positions. ?The margins of the rectus abdominis muscles were identified, and sites were marked in the LLQ within the margins. ?The patients pant location was taken into consideration when marking. ?She has a horizontal crease at the umbilicus and she was marking accordingly - I also took into consideration a midline incision and marked accordingly for surgeon visibility in the OR. The sites were cleansed with alcohol prep pads before marking and marked with sterile surgical marker.. ? Please re-consult after surgery for timely teaching. ?Thank you.
--- OUTSIDE RECORDS SUMMARY | 2024-08-12 14:07 | XMS_ITS | Encounter Summary ---
Author Organization [facility] Address [address] [place] [address] Care Team Providers Care Outreach Librarian Name Role Phone Nori Posey MD Primary Care Provider [phone] Encounter Details Date Type Department Care Team (Late st Contact Info) Description 01/02/2024 10:45 AM EDT Hospital Encounter TH HISTORIC ENCOUNTERS EASTERN CONVERSION ONLY Yossi Marina MD [address] [place] [address] [phone] Social History Tobacco Use Types Packs/Day Years [...] home since Sunday. Still has a black [place] in visual field of L eye. Still [...] ambulation ?? 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 The majority of the actual [id number] visit was spent counseling the patient with respect to the current neurological picture. Yossi Marina MD documented in this encounter Plan of Treatment Upcoming Encounters Date Type Department Care Team (Late st Contact Info) Description 08/13/2024 9:[address] [facility] [address] [place] [phone] 08/14/2024 9:[address] [facility] [address] [place] [phone] documented as of this encounter Visit Diagnoses Not on filedocumented in this encounter Care Teams Outreach Librarian Relationship Specialty Start Date End Date Nori Posey MD PCP - General 01/30/23 04/22/24 documented as of this encounter
--- OUTSIDE RECORDS SUMMARY | 2024-08-12 14:07 | XMS_ITS | Clinical Summary ---
Author Organization [facility] Address [address] [place] [phone] Phone Care Team Providers Care Equine Science Instructor Name Role Phone Janet Harding MD Primary Care Provider Allergies Active Allergy Reactions Criticality Noted Date [...] MINUTES BEFORE A MEAL 90 tablet 3 04/18/19 25 Active esomeprazole (NexIUM) [address] [...] BY MOUTH TWICE A DAY 180 tablet 07/11/19 25 Active Active Problems Problem Noted Date Diagnosed Date Agoraphobia with panic disorder 03/06/2022 Alopecia (capitis) totalis 03/06/2022 Body dysmorphic disorder 03/06/2022 History of suicidal behavior 03/06/2022 HSV-2 (herpes simplex virus 2) infection 022 Major depressive disorder 03/06/2022 Migraine 03/06/2022 Overview (03/03/2024): Amitryptilline daily PTSD (post-traumatic stress disorder) 03/06/2022 Encounters Date Type Department Care Team Description 08/04/2024 Telephone Gastroenterology - [place] [facility] [address] [facility] [address] [place] [address] Marcia Strange PA Consult Appointment from Last 3 Months Immunizations Name Administration Dates Next Due Tdap Tetanus diptheria acell ular pertussis (Boostrix; Adacel) 7yo and older 05/04/2023 Surgical History Surgery Date Site/Laterality Comments CHOLECYSTECTOMY PROCEDURE: [place] LAPAROSCOPY SURG CHOLECYSTECTOMY HYSTERECTOMY 2015 PROCEDURE: HISTORICAL HYSTERECTOMY THERAPEUTIC PROCEDURE:THERAPEUTIC APPENDECTOMY PROCEDURE:APPENDECTOMY TONSILLECTOMY PROCEDURE:TONSILLECTOMY HYSTERECTOMY PROCEDURE:HYSTERECTOMY CHOLECYSTECTOMY PROCEDURE:CHOLECYSTECTOMY LUMBAR PUNCTURE PROCEDURE:LUMBAR PUNCTURE BLADDER SURGERY PROCEDURE:BLADDER SURGERY Medical History Medical History Date Comments Migraine headache DX:Migraine he adache HSV-2 (herpes simplex virus 2) infection DX:HSV-2 (herpes simplex virus 2) infection PTSD (post-traumatic stress disorder) DX:PTSD (post-traumatic stress disorder) Suicide and self-inflicted i [place] [place] [facility] [place] DX:Suicide and self-inflict ed injury ([facility]) Major depression, chronic DX:Percy or [...] DX:Guaiac positive stools Hematuria DX:Hematuria Uterine cancer ([facility], [facility]) 2014 DX:Uterine cancer ([facility]) Interstitial cystitis DX:Interst itial cystitis Herpes genitalis [...] Info) Description 08/13/2024 9:00 AM EDT Appointment [facility] [address] [place] [phone] 08/14/2024 9:00 AM EDT Appointment [facility] [address] [place] [phone] Health Maintenance Due Date Last Done Comments [...] Associated Diagnosis Comments DEPRESSION SCREENING Routine 05/04/2023 [facility] SCREENING DIGITAL Routine 06/05/2022 11:27 AM EST Encounter for screening mammogram for malignant neoplasm of breast HEPATITIS C SCREENING Routine 03/06/2022 LIPID PANEL Routine 03/06/2022 from Last 3 Months or Most Recently Relevant to Health Maintenance Results * Depression Screening (05/04/2023) Depression Screening Abstracted us Historical Provider HEALTH MAINTENANCE Final Result * [facility] SCREENING DIGITAL (06/05/2022 11:27 AM EST) Anatomical Region Laterality Modality Mammography 06/05/2022 8:32 AM EST Narrative 06/05/2022 11:27 AM EST [facility] Diagnostic Imaging Department [address] [place] [address] Patient: ??PAULA JULES ?/Age/Sex: 1980 - 41 - Unit#: ??[id number] ? Location/Status: ??SPDIMAM/REG CLI ? Mnemonic/Ordering Site: ??DIGSC/SPMAM Ordering Physician: ??VIDAL GARY DO [facility] Screening Digital - 06/05/22 - 854 EXAM: [facility] Screening Digital EXAM DATE AND TIME: 06/05/2022 8:56 AM HISTORY: ??Screening. Baseline exam. Maternal grandmother had breast carcinoma. COMPARISON: ??No comparison imaging. TECHNIQUE: CC and MLO views of both breasts were obtained using full field digital mammography. Bilateral digital breast tomosynthesis was performed in the MLO projection. Computer aided detection with Any.DO 7.2-H and [employer]veFoundation 3.1 was employed. TISSUE DENSITY: b. There [...] Routine screening mammogram BILATERAL in 1 year. 42706, 28596 3341F, 7025F Dictating Physician: ??KIYA MYLES MD Electronically Signed by: ??KIYA MYLES MD Dic Date/Time: ??06/05/22 1126 Sign date/Time: ??06/05/22 1127 Procedure Note Kiya Myles MD - 05/04/2023 [facility] Diagnostic Imaging Department [address] [place] [phone] Patient: PAULA JULES/Age/Sex: 1980 - 41 - F Unit#: [id number] Location/Status: SPDIMAM/REG CLI Mnemonic/Ordering Site: [facility] Ordering Physician: VIDAL GARY DO [...] the MLO projection. Computer aided detection with Any.DO 7.2-H andmyBestHelper 3D 3.1 was employed. TISSUE DENSITY: b. [...] Routine screening mammogram BILATERAL in 1 year. [id number], 47625 3341F, 7025F Dictating Physician: KIYA MYLES MD [...] Most Recently Relevant to Health Maintenance Insurance [facility] Care Teams Equine Science Instructor Relationship Specialty Start Date End Date Janet Harding MD [address], [place] PCP - General Internal Medicine 08/04/24
--- OUTSIDE RECORDS SUMMARY | 2024-08-12 14:07 | XMS_ITS | Clinical Summary ---
Author Organization [facility] Address [address] [place] [address] Care Team Providers Care Net Mvc Developer Name Role Phone Nori Posey MD Primary Care Provider [phone] Allergies Active Allergy Reactions Criticality Noted Date Comments [place] 08/30/2023 Medications Medication Sig Dispensed Refills Start [...] age to complete this topic Care Teams Net Mvc Developer Relationship Specialty Start Date End Date Nori Posey MD [address] [place] [phone] PCP - General Internal Medicine 08/01/23
[2024-08-12] MEDS: Acetaminophen 1,000 MG/100 ML PIGGYBACK 400 MG IV ×2 (14:50→20:18)
--- NOTE | 2024-08-12 14:59 | P.OP_ITS ---
Operative Note Operative Note Date of Service: 08/12/24 Narrative: Preop diagnosis: Question of sigmoid stricture, with constipation and diarrhea with incontinence Postop diagnosis: No stricture or obstructive process in the sigmoid and left colon Procedure: Hand assisted laparoscopic end sigmoid colostomy Surgeon: Jesus Allen MD vet assistant: MARYELLEN Blackburn The patient is a 43 year female with a long history of chronic constipation and diarrhea as well with incontinence. She had always insisted that she would be better off with a colostomy. She did have a barium enema which suggested a stricture in the sigmoid. In view of the patient's long history, she wanted to proceed with a colostomy. I did explain to her that if we found a stricture, we may proceed with resection. She understood the technique of the planned procedure as well as the risks, benefits, and alternatives. She was brought to the operating room. She was placed in lithotomy position under general anesthesia via endotracheal tube. A TAP block was done by the anesthesiologist. A Maddox catheter was inserted. The abdomen was prepped and draped in the usual sterile fashion. A surgical time-out was done. The patient received Cefotan 2 g IV preoperatively. I made a short infraumbilical incision on the skin with a blade 15. This carried down with electrocautery through the full-thickness of the skin subcutaneous fat. It was noted the patient is a very thick amount of subcutaneous fat in view of her morbid obesity. I was able to expose the fascia. The fascia was incised. The peritoneum was entered. We then positioned the Cosme wound retractor. The GelPort was attached along with the insufflating port. The insufflation was done to a pressure of 15 mm Hg. We used a 10 mm 30 degree scope. With laparoscopic visualization, we inserted a 5/12 mm port in the epigastric area below the subcostal margin. We moved the laparoscope into this port . I placed by hand through the GelPort. The patient is placed in a steep down and right side down position. This allowed us to visualize the sigmoid colon well. I was able to clearly see this and palpate this. The left colon was seen and this appeared distended and non collapse. This was followed all the way to the rectum. There were no palpable masses or lesions. There was no stricture noted with careful examination of the left colon and sigmoid all the way to the rectum. There were no transition points. It did not appear therefore that was a structural obstructing process. The patient did appear to have what seemed to be a mildly floppy cecum. However, there was no discrepancy in the diameter of the entire length of the colon. There was no evidence of retained stools in the right colon, transverse and left colon. Since she had insisted on just having a colostomy has a very in constant and closed in history of diarrhea and constipation, I therefore proceeded to do an end-colostomy. I mobilized the left colon and the proximal sigmoid laparoscopically to divide the ligamentous attachments along the white line of Toldt as well as the peritoneum. This allowed me to have good length of the proximal sigmoid. I desufflated. I proceeded to transect the mid sigmoid using a MAURILIO 80 mm stapler extracorporeally. I excised the discoid piece of skin in the left lower quadrant that had been previously marked by the stoma nurse. This was done using a blade 15. I then dissected through the thick subcutaneous fat with electrocautery until the fascia was visualized. I made an incision around the anterior rectus sheath and divided the rectus muscle. I then incised the posterior rectus sheath as well. I dilated this to accommodate 3-0 my fingers I then positioned a small-sized Cosme wound retractor through this stoma opening. I pulled up the end colostomy from the sigmoid using a [place] through this stoma opening. Removed the Cosme wound retractor I matured the stoma by excising the staple line and securing the full-thickness of the open sigmoid wall to the subdermal layer with a circumferential row of Polysorb 3-0 simple interrupted sutures. The stoma appeared viable and did not appear ischemic at all I then proceeded to close the fascia with the Maxon 1 stitch. I then examined laparoscopically. The incision was seen and there was no bowel loops caught by the sutures No evidence of any bowel injury was seen. I therefore desufflated through the port sites. I removed all ports. The subcutaneous layer on the long midline incision was closed with Polysorb 3-0 simple interrupted sutures. Skin closure was achieved with all incisions with Polysorb 4-0 subcuticular running sutures I probed the colostomy with my still lubricated finger and this was patent past the fascial level Dressings were applied and the procedure was completed. The stoma appliance was positioned The patient tolerated procedure well. There were no immediate complications. Initial and final counts of sponges and instruments were correct. Estimated blood loss was less than 50 cc The patient is extubated without difficulty and transferred to the recovery room with stable vital signs.
[2024-08-12] MEDS: fentaNYL citrate/PF 100 MCG/2 ML VIAL 25 MCG IVPUSH ×2 (15:25→15:30)
--- NOTE | 2024-08-12 15:42 | PM.EVENT ---
Event Note Date of Service: 08/12/24 Event Note: Seen postop Status post end sigmoid colostomy earlier for long history of constipation, diarrhea and incontinence She seems to have good pain control Stable vital signs Stoma viable Abdomen is soft Good urine output Pain management Incentive spirometry Maddox in place Discussed above with Angel and patient herself Time Spent With Patient Time: Total time managing care of this patient today ____ minutes.
[2024-08-12] MEDS: Lactated Ringers 1,000 ML 80 ML IVCONT (17:06)
--- NOTE | 2024-08-12 18:25 | PHA.MEDREC ---
Addendum entered by Shweta Orozco RPh 08/12/24 18:46: reviewed by [facility]. Original Note: Pharmacy Consult ? Medication Reconciliation Pharmacy has completed the medication reconciliation. Spoke to patient to confirm med list. Patient states she is no longer taking Pantoprazole 40 mg (Taking Nexium 40 mg), Hydromorphone 1 mg, Hydrocortision 100mg/60ml rectal. Patient was just discharged from [facility] 08/01/24. Utilized claims and discharge packet to confirm med list.
[2024-08-12] MEDS: HYDROmorphone HCl 0.5 MG/0.5 ML SYRINGE IVPUSH (18:35)
[2024-08-12] MEDS: hydrOXYzine HCL 25 MG TABLET PO (20:18)
[2024-08-12] MEDS: Famotidine 20 MG TABLET PO (20:18)
[2024-08-12] MEDS: lamoTRIgine 25 MG TABLET 50 MG PO (20:18)
[2024-08-12] MEDS: 0.9 % Sodium Chloride Flush 3 ML SYRINGE IVFLUSH (20:20)
[2024-08-12] MEDS: Morphine Sulfate 4 MG/ML CARTRIDGE 3 MG IVPUSH (21:54)
[2024-08-12] MEDS: diphenhydrAMINE HCL 25 MG CAPSULE PO (21:54)
[2024-08-12] MEDS: oxyCODONE HCl Immed Release 5 MG TABLET 10 MG PO (22:57)
[2024-08-13] MEDS: Calcium Carbonate 750 MG TAB.CHEW PO ×2 (00:56→05:05)
[2024-08-13] MEDS: HYDROmorphone HCl 0.5 MG/0.5 ML SYRINGE IVPUSH (00:56)
[2024-08-13 03:04] VITALS: BP 112/68; PULSE 94; RESP 20; TEMP 36.4; O2SAT 94
[2024-08-13] MEDS: Acetaminophen 1,000 MG/100 ML PIGGYBACK 400 MG IV ×4 (03:34→21:09)
[2024-08-13] MEDS: Omeprazole 20 MG CAPSULE.DR PO ×2 (06:12→17:08)
[2024-08-13] MEDS: Lactated Ringers 1,000 ML 80 ML IVCONT ×2 (06:13→17:15)
--- NOTE | 2024-08-13 06:41 | P.PNGS_ITS ---
Subjective Subjective Date of Service: 08/13/24 <[facility] - Last Filed: 08/13/24 07:15> 08/13/24 <Faraz Diez PA-C - Last Filed: 08/13/24 08:02> 08/14/24 <Jesus Allen MD - Last Filed: 08/14/24 08:23> Interval history: Patient lying uncomfortably in bed, reporting 8.5/10 crampy abd pain radiating to her lower back and groin. She reports the pain meds are not strong enough, max 10/10 pain overnight, causing her to get little sleep and cry out in pain. She reports eventually declining Dilaudid and oxycodone because she knew they wouldn't work . She reports ambulating around room, flatus x1 through stoma, nausea without vomiting associated with clear diet, hearing stomach gurgle, and feeling distended. No BM yet. Reports using the incentive spirometry causes her abd pain, however used x 20 times yesterday. Denies headache, chest pain, difficulty breathing, vomiting, urinary symptoms, numbness/tingling. < [facility] Last Filed: 08/13/24 07:15> Physical Exam 2 Vital Signs: Vital Signs: Last Vital Signs Temp 97.6 F 08/13/24 03:04 Pulse 94 08/13/24 03:04 Resp 20 08/13/24 03:04 BP 112/68 08/13/24 03:04 Pulse Ox 94 08/13/24 03:04 O2 Del Method Room Air 08/13/24 03:04 O2 Flow Rate 2 08/12/24 16:34 BMI result Body Mass Index 42.6 <[facility] Last Filed: 08/13/24 07:15> Const: General: cooperative, no acute distress, alert and awake <[facility] Last Filed: 08/13/24 07:15> Orientation/consciousness: patient oriented x3 <[facility] Last Filed: 08/13/24 07:15> Resp: Effort & Inspection: normal respiratory effort and able to speak in complete sentences <[facility] Last Filed: 08/13/24 07:15> GI: Other: Incision sites with minimal dry blood on 2 of the bandages. Stoma moist and red, minimal edema. Periostomal skin dry and intact. Small amount of blood in ostomy bag. Mild abd distention. <[facility] Last Filed: 08/13/24 07:15> Palpation (GI): Tenderness to palpation present (GI), no guarding and not rigid <[facility] Last Filed: 08/13/24 07:15> : Other: Salcido draining clear and yellow urine. <[facility] Last Filed: 08/13/24 07:15> Neuro: General: patient oriented x3 and moves all extremities <[facility] Last Filed: 08/13/24 07:15> Objective Data Active Medications Calcium Carbonate (Calcium Carbonate 750 Mg Tab.Chew) 750 mg PO Q4H PRN PRN Reason: Heartburn Last Admin: 08/13/24 05:05 Dose: 750 mg Documented By: YOLANDA Clonazepam (Clonazepam 1 Mg Tablet) 1 mg PO TID PRN PRN Reason: Anxiety Famotidine (Famotidine 20 Mg Tablet) 20 mg PO BID FOR[facility]LY [facility], [facility]1983 Last Admin: 08/12/24 20:18 Dose: 20 mg Documented By: YOLANDA Fluticasone Propionate (Fluticasone Propionate Nasal 16 Gm [place]) 2 spray NOSTRIL-B DAILY PRN PRN Reason: Allergy Symptoms Hydromorphone HCl (Hydromorphone Hcl 0.5 Mg/0.5 Ml Syringe) 0.5 mg IVPUSH Q4H PRN; Protocol PRN Reason: Pain, Severe (Pain Scale 7-10) Last Admin: 08/13/24 00:56 Dose: 0.5 mg Documented By: YOLANDA Hydroxyzine HCl (Hydroxyzine Hcl 25 Mg Tablet) 25 mg PO BEDTIME FORMERLY [facility], [facility]1983 Last Admin: 08/12/24 20:18 Dose: 25 mg Documented By: YOLANDA Lactated Ringer's (Lr) 1,000 mls @ 80 mls/hr IVCONT .[id number] FOR[facility], [facility]1983 Last Admin: 08/13/24 06:13 Dose: 80 mls/hr Documented By: YOLANDA Acetaminophen (Ofirmev) 1,000 mg in 100 mls @ 400 mls/hr IV Q6H FOR[facility], [facility]1983 Last Infusion: 08/13/24 03:49 Dose: Infused Documented By: YOLANDA Lactulose (Lactulose 20 Gm/30 Ml Solution) 20 gm PO DAILY PRN PRN Reason: Constipation Lamotrigine (Lamotrigine 100 Mg Tablet) 200 mg PO DAILY FOR[facility] Lamotrigine (Lamotrigine 25 Mg Tablet) 50 mg PO BEDTIME FOR[facility], [facility] Last Admin: 08/12/24 20:18 Dose: 50 mg Documented By: YOLANDA Magnesium Oxide (Magnesium Oxide 400 Mg Tablet) 400 mg PO DAILY [facility] Melatonin (Melatonin 3 Mg Tablet) 6 mg PO BEDTIME PRN PRN Reason: Insomnia Mesalamine (Mesalamine 0.375 Gm Cap.Er.24h) 1.5 gm PO DAILY FOR[facility]LY [facility], [facility] Mirabegron (Mirabegron 50 Mg Tab.Er.24h) 50 mg PO DAILY FOR[facility], [facility] Morphine Sulfate (Morphine Sulfate 4 Mg/Ml Cartridge) 3 mg IVPUSH Q3H PRN; Protocol PRN Reason: Pain, Severe (Pain Scale 7-10) Last Admin: 08/12/24 21:54 Dose: 3 mg Documented By: YOLANDA Omeprazole (Omeprazole 20 Mg Capsule.Dr) 20 mg PO BID@0630,1630 [facility], [facility] Last Admin: 08/13/24 06:12 Dose: 20 mg Documented By: YOLANDA Ondansetron HCl (Ondansetron Hcl 4 Mg/2 Ml Vial) 4 mg IVPUSH Q6H PRN PRN Reason: Nausea and Vomiting Oxycodone HCl (Oxycodone Hcl Immed Release 5 Mg Tablet) 10 mg PO Q4H PRN PRN Reason: Pain, Moderate(Pain Scale 4-6) Last Admin: 08/12/24 22:57 Dose: 10 mg Documented By: YOLANDA Sodium Chloride (0.9 % Sodium Chloride Flush 3 Ml Syringe) 3 ml IVFLUSH QSHIFT FOR[facility], [facility]1983 Last Admin: 08/12/24 20:20 Dose: 3 ml Documented By: YOLANDA Valacyclovir HCl (Valacyclovir Hcl 500 Mg Tablet) 500 mg PO DAILY [facility]1983 Vitamin D (Cholecalciferol (Vitamin D3) 25 Mcg Tablet) 125 mcg PO DAILY [facility] Vortioxetine (Vortioxetine Hydrobromide 20 Mg Tablet) 20 mg PO DAILY [facility] <Tierra Smith - Last Filed: 08/13/24 07:15> Labs CBC & Chem 7: 08/13/24 06:12 08/13/24 06:12 <Tierra Sarah - Last Filed: 08/13/24 07:15> Labs: Laboratory Results - last 24 hr 08/12/24 13:07 Blood Type A Positive Antibody Screen NEGATIVE <Tierra Sarah - Last Filed: 08/13/24 07:15> Procedures Date of Service Date of Service: 08/13/24 <Tierra Sarah - Last Filed: 08/13/24 07:15> 08/13/24 <Faraz Diez PA-C - Last Filed: 08/13/24 08:02> 08/14/24 <Jesus Allen MD - Last Filed: 08/14/24 08:23> Progress Note: A&P Assessment and plan (1) Constipation: Status: Resolved <Tierra Sarah - Last Filed: 08/13/24 07:15> Assessment and Plan: Status post end sigmoid colostomy No obstructive process seen in the colon Abdomen is soft She says she has felt small amounts of gas 1 time overnight by the stoma Wants to have better pain control - asking for tramadol Incentive spirometry Pain management Okay to DC Salcido Encouraged to get out Seen and examined independently <Jesus Allen MD - Last Filed: 08/14/24 08:23> Assessment and Plan: 43 year old female POD1 from colostomy creation. Patient reports 8.5/10 abd pain radiating to the lower back and groin, poor pain control overnight. Reports flatus x 1, nausea associated with clear diet, ambulating around the room, using incentive spirometry, no BM. Incision sites dry, minimal dry blood on dressings. Stoma moist and red, minimal edema. Periostomal skin dry and intact. Small amount of serosanginous fluid in ostomy bag. Total intake 1661, total output 2000 mL, adequate urine output. Mild abd distention. Vital signs stable. Labs pending. Plan: -continue pain control, consider changing regimen -continue clear liquid diet as tolerated -encourage ambulation, incentive spirometry -monitor for continued return of bowel function (flatus/BM) -d/c salcido -continue DVT prophylaxis -consult wound care for patient education of stoma <Tierra Smith - Last Filed: 08/13/24 07:15> 43 year old female POD1 from colostomy creation. Patient reports 8.5/10 abd pain radiating to the lower back and groin, poor pain control overnight. Reports flatus x 1, nausea associated with clear diet, ambulating around the room, using incentive spirometry, no BM. Incision sites dry, minimal dry blood on dressings. Stoma moist and red, minimal edema. Periostomal skin dry and intact. Small amount of serosanginous fluid in ostomy bag. Total intake 1661, total output 2000 mL, adequate urine output. Mild abd distention. Vital signs stable. Plan: -continue pain control, consider changing regimen -continue clear liquid diet as tolerated -encourage ambulation, incentive spirometry -monitor for continued return of bowel function (flatus/BM) -d/c salcido -continue DVT prophylaxis -consult wound care for patient education of stoma Patient was seen independently, agree with the above plan. will add ketorelac for pain management, kidney function adequate on 08/13 labs Will add tramadol to pain regimen, patient states this helped her in pervious admission without issues. Attending aware of seizure history, patient has tolerated medication previously, compliant with antiepileptic medications. will continue to follow <Faraz Diez PA-C - Last Filed: 08/13/24 08:02> Time Spent With Patient Time: Total time managing care of this patient today ____ minutes. <Tierra Last Filed: 08/13/24 07:15> Quality Stroke Does the patient have a stroke diagnosis?: No <Faraz Diez PA-C - Last Filed: 08/13/24 08:02> VTE Prior VTE?: No <Faraz Diez PA-C - Last Filed: 08/13/24 08:02> VTE Risk Level:: Medical - low <Tierra Dutton - Last Filed: 08/13/24 07:15> VTE Device Contraindication: N/A - Device Ordered <Tierra Last Filed: 08/13/24 07:15> VTE Drug Contraindication: Treatment Not Indicated < - Filed: 08/13/24 07:15>
[2024-08-13 06:42] LABS: Anion Gap 13 (12-20); Blood Urea Nitrogen 7 mg/dL (9-16); Calcium 8.7 mg/dL (8.4-10.2); Carbon Dioxide 21 mmol/L (22-29); Chloride 105 mmol/L (96-108); Creatinine Clr Calc Pharmacy 142.3; Estimated Glomerular Filt Rate > 60; Glucose Random 104 mg/dL (60-115); Potassium 4.3 mmol/L (3.3-5.1); Sodium 135 mmol/L (135-145)
[2024-08-13 07:04] LABS: Hematocrit 35.2 % (37.0-47.0); Hemoglobin 12.2 g/dl (12.0-16.0); Mean Corpuscular HGB Conc 34.7 g/dl (31.0-35.0); Mean Corpuscular Hemoglobin 27.5 pg (27.0-33.0); Mean Corpuscular Volume 79.3 fL (80.0-98.0); Mean Platelet Volume 10.2 fL (9.4-12.3); Platelet Count 378 X10*3/uL (160-400); Red Blood Count 4.44 X10*6/uL (4.20-5.50); Red Cell Distribution Width 13.5 % (11.0-16.0); White Blood Count 11.7 X10*3/uL (4.8-10.8)
[2024-08-13 07:06] VITALS: BP 123/70; PULSE 85; RESP 16; TEMP 36.7; O2SAT 96
--- NOTE | 2024-08-13 07:21 | PC.NURSE ---
pt had increasing pain over night to abd, that was difficult to manage throughout the night. pt reassured that it is gas pain and it can be really painful. Pt encouraged to stand up and ambulate to help move flatus around, pt walked around room a little with not much help at the time, repositioning done as well. Distraction used to help with pain, this RN sat at bedside and listened to patient when needed. Meds given per MAR, eventually by dairy bacteriologist pt started to feel some relief, tums with good effect, pt reported hearing some gurgling to abd and eventually a small amount of flatus relief out of ostomy. VSS. Pt reassured that it will get better and surgeon will be in to see her in the morning.
[2024-08-13] MEDS: 0.9 % Sodium Chloride Flush 3 ML SYRINGE IVFLUSH (08:19)
[2024-08-13] MEDS: Ketorolac Tromethamine 30 MG/ML VIAL IVPUSH ×3 (08:21→19:34)
[2024-08-13] MEDS: lamoTRIgine 100 MG TABLET 200 MG PO (08:21)
[2024-08-13] MEDS: Famotidine 20 MG TABLET PO ×2 (08:21→21:10)
[2024-08-13] MEDS: Mirabegron 50 MG TAB.ER.24H PO (08:21)
[2024-08-13] MEDS: MESALAMINE 0.375 GM 1.5 GM PO (08:21)
[2024-08-13] MEDS: Magnesium Oxide 400 MG TABLET PO (08:22)
[2024-08-13] MEDS: Cholecalciferol (Vitamin D3) 25 MCG TABLET 125 MCG PO (08:22)
[2024-08-13] MEDS: Vortioxetine Hydrobromide 20 MG TABLET PO (08:22)
[2024-08-13] MEDS: valACYclovir HCL 500 MG TABLET PO (08:22)
[2024-08-13] MEDS: clonazePAM 1 MG TABLET PO (08:27)
--- NOTE | 2024-08-13 09:16 | HO.POSTANES ---
Post Anesthesia Evaluation Post Anesthesia Evaluation Date of Service: 08/13/24 Vital Signs: Vital Signs Temp Pulse Resp BP Pulse Ox O2 Del Method 08/13/24 07:06 98.1 F 85 16 123/70 96 Room Air 08/13/24 03:04 97.6 F 94 20 112/68 94 Room Air 08/12/24 23:19 90 20 109/62 Anesthesia: General Endotracheal-GETA Mental Status: Awake Pain Control: Satisfactory Nausea/Vomiting: None Hydration: Adequate Anesthesia-Related Issues: No Anes. Related Issues
[2024-08-13] MEDS: traMADoL HCL 50 MG TABLET PO ×2 (12:25→17:14)
--- NOTE | 2024-08-13 13:06 | MHC.CM.PN ---
Patient lives in a home w/ . Has a HUMAN RESOURCE ANALYST 18 hrs/wk to assist w/ personal care, cooking, cleaning. also assists w/ ADL's. Ambulates w/ walker PRN, also has a w/c for long distances. 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 Also reports that she used to have [employer] disability, but now has [employer] after not submitting documentation on time. Referral sent to . Patient will also reach out to [facility] CM for assistance. PCP @ [facility]. Has a HCP listing , Angel, as HCA. Copy requested. DP: Home, resume HUMAN RESOURCE ANALYST, new [facility] (patient preference) for SN/ostomy teaching. to transport. CM will continue to follow.
[2024-08-13] MEDS: ondansetron HCL 4 MG/2 ML VIAL IVPUSH (13:23)
--- NOTE | 2024-08-13 13:48 | PM.EVENT ---
Event Note Date of Service: 08/13/24 Event Note: Seen on afternoon rounds Abdomen is soft, benign, stoma without stool, appears viable She says that her current pain regimen is working much better She says her pain control is much improved She says she is passing flatus from her stoma She has met with the stoma nurse She looks well and much more comfortable She says she has been ambulating Voiding freely after removal of the Maddox Continue pain management Encouraged ambulation Incentive spirometry Plan to advance diet tomorrow Time Spent With Patient Time: Total time managing care of this patient today ____ minutes.
--- NOTE | 2024-08-13 14:10 | HO.OSTOMY ---
Ostomy Consult: Initial Teaching 43yr old female admitted to [facility] on 08/12/24 see H&P for detailed history and admission.? Consult for new ostomy teaching. ?She had a Colostomy creation on 08/12/[address] Allen. ?Upon entry into patient's room, she is lying in his bed, he is alert and oriented x 3, he currently has no complaints. ?Introductions were completed, he is agreeable to continuing with teaching. ? We discussed his pain control at 08/09 at the current moment, he reports increasing the use of his IS and ambulating the entire unit (1x today so far). ?We began by discussing general knowledge about the Colostomy and questions he had. ?We discussed opening and closing the ostomy pouch. He was able to independently provide a return demonstration on an empty pouch. ?He had not yet emptied his pouch only bowel sweat is noted.? We discussed the importance of emptying pouch when 1/3 to 1/2 full, how to empty pouch, and lining water with toilet paper to prevent splash back. With an empty Coloplast pouch he performed a demonstration. He was also educated on when to contact cone worker/Dr Allen's office/seek emergency medical treatment. Patient was given some ostomy pouches for transition to home. Aware that Rx written for pouches and rings will be sent by Outpt nurse to [facility] for home delivery.? Reviewed written education with patient and left at bedside for further review. ?He did watch the education videos supplied by [facility]. Permission was granted for pouch assessment and no leak was noted.? Stoma is dark red and appears viable through pouch.? Due to no output from stoma pouch is not needed to be changed at this time.? Will assess at tomorrow?s teaching. ?He reported having no questions at this time. ?Patient was made aware that I will return to bedside later in week for ongoing education - however to note patient seems to have a good understanding of care and material at this time. ?He will benefit from VNA services at time of discharge. ?All questions and concerns addressed at this time. Next teaching session goals: Demonstrate open and close independently Steps to a pouch change he is able to recall We discussed the following steps: 1. Empty pouch before pouch change 2. Remove pouch using push/pull technique from top to bottom 3. Cleanse stoma and skin with tap water only - no soap or baby wipes 4. Pat dry 5. Measure stoma and cut new pouch no more than 1/8 inch larger than stoma and no smaller than stoma 6. If instructed by your ostomy nurse stretch barrier seal to the size of the stoma and press onto skin around stoma (up to the edge of the stoma but not onto the stoma) 7. Press the new pouch into place and hold for several minutes (close pouch tail) 8. Empty pouch when 1/3 to 1/2 full 9. Change pouch twice weekly on a schedule (for example, every Sunday and ) and as needed for any leaking (feels like intense itch or burn at edge of stoma) 10. May order pre-cut pouches (already cut to size of stoma) once stoma measures the same size consistently. ?
--- NOTE | 2024-08-13 14:11 | HO.OSTOMY ---
Ostomy Consult: Initial Teaching 43yr old female admitted to [facility] on 08/12/24 see H&P for detailed history and admission.? Consult for new ostomy teaching. ?She had a Colostomy creation on 08/12/[address] Allen. ?Upon entry into patient's room, she is lying in bed, she was sleeping but easily arousable, she is alert and oriented x 3, She currently complains of lack of sleep and rest overnight. ?Introductions were completed, she requests to have teaching later in the week when she feels she will be better to receive information - this is agreeable. She reports she has ambulated and is currently using her IS, she is tolerating clears with out nausea. We discussed her pain control at 08/09 at the current moment which is significantly improved per pt statement. We began by discussing general knowledge about the Colostomy and questions she had. ?We discussed opening and closing the ostomy pouch. She had not yet emptied his pouch only bowel sweat is noted.? We discussed the importance of emptying pouch when 1/3 to 1/2 full, how to empty pouch, and lining water with toilet paper to prevent splash back. She was educated the pouch would be changed twice a week at this time. She had flight of ideas at various She was also educated on when to contact compensation coordinator/Dr Allen's office/seek emergency medical treatment. Permission was granted for pouch assessment and no leak was noted.? Stoma is dark red and appears viable through pouch.? Due to no output from stoma pouch is not needed to be changed at this time.? Will assess at Fridays teaching. ?She reported having no questions at this time. ?Patient was made aware that I will return to bedside later in week for ongoing education. She will benefit from VNA services at time of discharge. ?All questions and concerns addressed at this time. Next teaching session goals: Demonstrate open and close independently Initialized on 08/13/24 14:10 - END OF NOTE
[2024-08-13 15:53] VITALS: BP 110/52; PULSE 78; RESP 20; TEMP 36.3; O2SAT 96
[2024-08-13] MEDS: HYDROmorphone HCl 1 MG/ML SYRINGE IVPUSH (19:35)
[2024-08-13 19:44] VITALS: BP 105/53; PULSE 86; RESP 18; TEMP 36.6; O2SAT 96
[2024-08-13] MEDS: lamoTRIgine 25 MG TABLET 50 MG PO (21:10)
[2024-08-13] MEDS: hydrOXYzine HCL 25 MG TABLET PO (21:10)
[2024-08-14] MEDS: Ketorolac Tromethamine 30 MG/ML VIAL IVPUSH ×4 (01:29→19:41)
[2024-08-14] MEDS: Acetaminophen 1,000 MG/100 ML PIGGYBACK 400 MG IV ×4 (03:02→21:10)
[2024-08-14 03:30] VITALS: BP 146/71; PULSE 72; RESP 20; TEMP 36.4; O2SAT 94
[2024-08-14] MEDS: HYDROmorphone HCl 1 MG/ML SYRINGE IVPUSH ×3 (03:49→19:41)
[2024-08-14] MEDS: Lactated Ringers 1,000 ML 80 ML IVCONT ×2 (05:57→17:15)
[2024-08-14] MEDS: Omeprazole 20 MG CAPSULE.DR PO ×2 (05:57→17:15)
--- NOTE | 2024-08-14 06:42 | P.PNGS_ITS ---
Subjective Subjective Date of Service: 08/14/24 <[facility] - Last Filed: 08/14/24 07:00> 08/14/24 <Jesus Allen MD - Last Filed: 08/14/24 08:22> 08/14/24 <Faraz Diez PA-C - Last Filed: 08/14/24 09:37> Interval history: Patient resting comfortably in bed. She reports 4/10 left-sided abd pain at rest, without radiation, and crampy abd pain when urinating. She reports 1 episode of diffuse sharp abd pain after urinating last night that quickly resolved with pain medication, however, overall reports pain is improving. Reports flatus x 20+ times and feeling bloating, no BM yet. Reports nausea without vomiting with clear liquids, ambulating several times around room and to bathroom, using incentive spirometry. Denies headache, vomiting, chest pain, difficulty breathing, urinary symptoms, numbness/tingling. <[facility] Last Filed: 08/14/24 07:00> Physical Exam 2 Vital Signs: Vital Signs: Last Vital Signs Temp 97.6 F 08/14/24 03:30 Pulse 72 08/14/24 03:30 Resp 20 08/14/24 03:30 BP 146/71 H 08/14/24 03:30 Pulse Ox 94 08/14/24 03:30 O2 Del Method Room Air 08/14/24 03:30 O2 Flow Rate 2 08/12/24 16:34 BMI result Body Mass Index 42.6 <[facility] Last Filed: 08/14/24 07:00> Const: General: cooperative, no acute distress, alert and awake <[facility] Last Filed: 08/14/24 07:00> Orientation/consciousness: patient oriented x3 <[facility] Last Filed: 08/14/24 07:00> Resp: Effort & Inspection: normal respiratory effort and able to speak in complete sentences <[facility] Last Filed: 08/14/24 07:00> GI: Other: Incision sites clean and dry. Stoma moist and pink/red with scant serosanginous fluid in bag. Peristomal skin dry and intact. Abd soft, tender to palpation over suprapubic area and LLQ. Mild distention. <[facility] Last Filed: 08/14/24 07:00> Palpation (GI): Soft to palpation, no guarding and not rigid <[facility] - Last Filed: 08/14/24 07:00> Neuro: General: patient oriented x3 and moves all extremities <[facility] - Last Filed: 08/14/24 07:00> Objective Data Active Medications Calcium Carbonate (Calcium Carbonate 750 Mg Tab.Chew) 750 mg PO Q4H PRN PRN Reason: Heartburn Last Admin: 08/13/24 05:05 Dose: 750 mg Documented By: YOLANDA Clonazepam (Clonazepam 1 Mg Tablet) 1 mg PO TID PRN PRN Reason: Anxiety Last Admin: 08/13/24 08:27 Dose: 1 mg Documented By: CARMELO Famotidine (Famotidine 20 Mg Tablet) 20 mg PO BID [facility] Last Admin: 08/13/24 21:10 Dose: 20 mg Documented By: JHON Fluticasone Propionate (Fluticasone Propionate Nasal 16 Gm [place]) 2 spray NOSTRIL-B DAILY PRN PRN Reason: Allergy Symptoms Hydromorphone HCl (Hydromorphone Hcl 1 Mg/Ml Syringe) 1 mg IVPUSH Q4H PRN; Protocol PRN Reason: Pain, Severe (Pain Scale 7-10) Last Admin: 08/14/24 03:49 Dose: 1 mg Documented By: JHON Hydroxyzine HCl (Hydroxyzine Hcl 25 Mg Tablet) 25 mg PO BEDTIME [facility] Last Admin: 08/13/24 21:10 Dose: 25 mg Documented By: JHON Lactated Ringer's (Lr) 1,000 mls @ 80 mls/hr IVCONT .[id number] [facility] Last Admin: 08/14/24 05:57 Dose: 80 mls/hr Documented By: JHON Acetaminophen (Ofirmev) 1,000 mg in 100 mls @ 400 mls/hr IV Q6H [facility] Last Infusion: 08/14/24 03:18 Dose: Infused Documented By: JHON Ketorolac Tromethamine (Ketorolac Tromethamine 30 Mg/Ml Vial) 30 mg IVPUSH Q6H [facility] Last Admin: 08/14/24 01:29 Dose: 30 mg Documented By: JHON Lactulose (Lactulose 20 Gm/30 Ml Solution) 20 gm PO DAILY PRN PRN Reason: Constipation Lamotrigine (Lamotrigine 100 Mg Tablet) 200 mg PO DAILY [facility] Last Admin: 08/13/24 08:21 Dose: 200 mg Documented By: CARMELO Lamotrigine (Lamotrigine 25 Mg Tablet) 50 mg PO BEDTIME [facility] Last Admin: 08/13/24 21:10 Dose: 50 mg Documented By: JHON Magnesium Oxide (Magnesium Oxide 400 Mg Tablet) 400 mg PO DAILY [facility] Last Admin: 08/13/24 08:22 Dose: 400 mg Documented By: CARMELO Melatonin (Melatonin 3 Mg Tablet) 6 mg PO BEDTIME PRN PRN Reason: Insomnia Mesalamine (Mesalamine 0.375 Gm Cap.Er.24h) 1.5 gm PO DAILY [facility] Last Admin: 08/13/24 08:21 Dose: 1.5 gm Documented By: CARMELO Mirabegron (Mirabegron 50 Mg Tab.Er.24h) 50 mg PO DAILY [facility] Last Admin: 08/13/24 08:21 Dose: 50 mg Documented By: CARMELO Morphine Sulfate (Morphine Sulfate 4 Mg/Ml Cartridge) 3 mg IVPUSH Q3H PRN; Protocol PRN Reason: Pain, Severe (Pain Scale 7-10) Last Admin: 08/12/24 21:54 Dose: 3 mg Documented By: YOLANDA Omeprazole (Omeprazole 20 Mg Capsule.Dr) 20 mg PO BID@0630,1630 [facility] Last Admin: 08/14/24 05:57 Dose: 20 mg Documented By: JHON Ondansetron HCl (Ondansetron Hcl 4 Mg/2 Ml Vial) 4 mg IVPUSH Q6H PRN PRN Reason: Nausea and Vomiting Last Admin: 08/13/24 13:23 Dose: 4 mg Documented By: CARMELO Oxycodone HCl (Oxycodone Hcl Immed Release 5 Mg Tablet) 10 mg PO Q4H PRN PRN Reason: Pain, Moderate(Pain Scale 4-6) Last Admin: 08/12/24 22:57 Dose: 10 mg Documented By: YOLANDA Sodium Chloride (0.9 % Sodium Chloride Flush 3 Ml Syringe) [facility] Last Admin: 08/13/24 21:17 Dose: Not Given Documented By: JHON Non-Admin Reason: IV Running Tramadol HCl (Tramadol Hcl 50 Mg Tablet) 50 mg PO Q4H PRN PRN Reason: Pain, Moderate(Pain Scale 4-6) Last Admin: 08/13/24 17:14 Dose: 50 mg Documented By: CARMELO Valacyclovir HCl (Valacyclovir Hcl 500 Mg Tablet) 500 mg PO DAILY [facility] Last Admin: 08/13/24 08:22 Dose: 500 mg Documented By: CARMELO Vitamin D (Cholecalciferol (Vitamin D3) 25 Mcg Tablet) 125 mcg PO DAILY [facility] Last Admin: 08/13/24 08:22 Dose: 125 mcg Documented By: CARMELO Vortioxetine (Vortioxetine Hydrobromide 20 Mg Tablet) 20 mg PO DAILY [facility] Last Admin: 08/13/24 08:22 Dose: 20 mg Documented By: CARMELO <[facility] Last Filed: 08/14/24 07:00> Labs CBC & Chem 7: 08/13/24 06:12 08/13/24 06:12 <[facility] Last Filed: 08/14/24 07:00> Labs: Laboratory Results - last 24 hr 08/13/24 06:12 MCV 79.3 L MCH 27.5 MCHC 34.7 RDW 13.5 Plt Count 378 MPV 10.2 Absolute Nucleated RBC 0.000 Nucleated RBC % (auto) 0.0 Anion Gap 13 Estim Creat Clear Calc 142.3 Estimated GFR > 60 Random Glucose 104 Calcium 8.7 <[facility] Last Filed: 08/14/24 07:00> Procedures Date of Service Date of Service: 08/14/24 <[facility] Last Filed: 08/14/24 07:00> 08/14/24 <Jesus Allen MD - Last Filed: 08/14/24 08:22> 08/14/24 <Faraz Diez PA-C - Last Filed: 08/14/24 09:37> Progress Note: A&P Assessment and plan (1) Colostomy in place: Status: Acute <[facility] Last Filed: 08/14/24 07:00> Assessment and Plan: Says she has good pain control Continues to pass good amounts of flatus via the stoma Looks well Abdomen is soft Incisions clean and dry Stoma viable, no stools yet She describes some nausea with clear liquids Possibly advance diet later on today Encouraged to get out of bed and ambulate Seen and examined independently <Jesus Allen MD - Last Filed: 08/14/24 08:22> Assessment and Plan: 43 year old female POD2 from end sigmoid colostomy creation. Reports pain is overall improving, currently 4/10, however continues to have nausea with clear liquid diet. Flatus through stoma x 20+, no BM yet. Incision sites clean and dry. Stoma moist and pink/red with scant serosanginous fluid in bag. Peristomal skin dry and intact. Abd soft, tender to palpation over suprapubic area and LLQ. Mild distention. Vital signs stable. Plan: -continue pain control -continue clear liquid diet as tolerated, consider adding second anti-nausea med and trial of full clears later today -encourage ambulation, incentive spirometry -monitor for continued return of bowel function (flatus/BM) -continue DVT prophylaxis -continue patient education of stoma with wound care nurse <Tierra Smith - Last Filed: 08/14/24 07:00> 43 year old female POD2 from end sigmoid colostomy creation. Reports pain is overall improving, currently 4/10, however continues to have nausea with clear liquid diet. Flatus through stoma x 20+, no BM yet. Incision sites clean and dry. Stoma moist and pink/red with scant serosanginous fluid in bag. Peristomal skin dry and intact. Abd soft, tender to palpation over suprapubic area and LLQ. Mild distention. Vital signs stable. Plan: -continue pain control -continue clear liquid diet as tolerated, consider adding second anti-nausea med -encourage ambulation, incentive spirometry -monitor for continued return of bowel function (flatus/BM) -continue DVT prophylaxis -continue patient education of stoma with wound care nurse <Jesus Allen MD - Last Filed: 08/14/24 08:22> 43 year old female POD2 from end sigmoid colostomy creation. Reports pain is overall improving, currently 4/10, however continues to have nausea with clear liquid diet. Flatus through stoma x 20+, no BM yet. Incision sites clean and dry. Stoma moist and pink/red with scant serosanginous fluid in bag. Peristomal skin dry and intact. Abd soft, tender to palpation over suprapubic area and LLQ. Mild distention. Vital signs stable. Plan: -continue pain control -continue clear liquid diet as tolerated, consider adding second anti-nausea med -encourage ambulation, incentive spirometry -monitor for continued return of bowel function (flatus/BM) -continue DVT prophylaxis -continue patient education of stoma with wound care nurse This patient was seen independently evaluated, patient appears well today. I agree with the above plan. We will re-evaluate her this afternoon to see how she is tolerating clears, if her nausea is improved we will advance diet as tolerated. Ostomy care consult appreciated <Faraz Diez PA-C - Last Filed: 08/14/24 09:37> Time Spent With Patient Time: Total time managing care of this patient today ____ minutes. <Tierra Smith - Last Filed: 08/14/24 07:00> Quality Stroke Does the patient have a stroke diagnosis?: No <Tierra Franciscover - Last Filed: 08/14/24 07:00> VTE Prior VTE?: No <Tierra Franciscover - Last Filed: 08/14/24 07:00> VTE Risk Level:: Medical - low <Tierra Franciscover - Last Filed: 08/14/24 07:00> VTE Device Contraindication: N/A - Device Ordered <Tierra Smith - Last Filed: 08/14/24 07:00> VTE Drug Contraindication: Treatment Not Indicated <Tierra Smith - Last Filed: 08/14/24 07:00>
[2024-08-14 07:38] VITALS: BP 123/60; PULSE 72; RESP 18; TEMP 36.3; O2SAT 96
[2024-08-14] MEDS: ondansetron HCL 4 MG/2 ML VIAL IVPUSH (09:13)
[2024-08-14] MEDS: MESALAMINE 0.375 GM 1.5 GM PO (09:15)
[2024-08-14] MEDS: Famotidine 20 MG TABLET PO ×2 (09:15→21:11)
[2024-08-14] MEDS: lamoTRIgine 100 MG TABLET 200 MG PO (09:15)
[2024-08-14] MEDS: Magnesium Oxide 400 MG TABLET PO (09:15)
[2024-08-14] MEDS: Vortioxetine Hydrobromide 20 MG TABLET PO (09:15)
[2024-08-14] MEDS: Cholecalciferol (Vitamin D3) 25 MCG TABLET 125 MCG PO (09:16)
[2024-08-14] MEDS: valACYclovir HCL 500 MG TABLET PO (09:16)
[2024-08-14] MEDS: Mirabegron 50 MG TAB.ER.24H PO (09:16)
--- NOTE | 2024-08-14 14:04 | PM.EVENT ---
Event Note Date of Service: 08/14/24 Event Note: Seen on afternoon rounds She continues to feel better Passing good amounts of flatus via the stoma No stools yet Abdomen is soft Stoma viable Okay to have some small meals of regular food for now Encouraged to ambulate some more I also encouraged her to decrease her narcotic doses Clinically doing well overall Time Spent With Patient Time: Total time managing care of this patient today ____ minutes.
[2024-08-14 15:08] VITALS: BP 104/52; PULSE 89; RESP 18; TEMP 36.7; O2SAT 97
[2024-08-14 19:10] VITALS: BP 111/66; PULSE 93; RESP 18; TEMP 36.5; O2SAT 97
[2024-08-14] MEDS: lamoTRIgine 25 MG TABLET 50 MG PO (21:11)
[2024-08-14] MEDS: Docusate Sodium 100 MG CAPSULE PO (21:11)
[2024-08-14] MEDS: hydrOXYzine HCL 25 MG TABLET PO (21:11)
[2024-08-14] MEDS: traMADoL HCL 50 MG TABLET PO (23:47)
[2024-08-15] MEDS: Ketorolac Tromethamine 30 MG/ML VIAL IVPUSH ×4 (01:37→18:44)
[2024-08-15] MEDS: Acetaminophen 1,000 MG/100 ML PIGGYBACK 400 MG IV ×4 (02:55→20:53)
[2024-08-15 03:23] VITALS: BP 118/59; PULSE 89; RESP 20; TEMP 36.8; O2SAT 96
[2024-08-15] MEDS: Lactated Ringers 1,000 ML 80 ML IVCONT ×2 (05:23→17:17)
[2024-08-15] MEDS: Omeprazole 20 MG CAPSULE.DR PO ×2 (05:23→15:45)
[2024-08-15] MEDS: HYDROmorphone HCl 1 MG/ML SYRINGE IVPUSH ×2 (06:22→21:36)
[2024-08-15 08:00] VITALS: BP 117/57; PULSE 88; RESP 16; TEMP 36.1; O2SAT 98
--- NOTE | 2024-08-15 08:47 | P.PNGS_ITS ---
Subjective Subjective Date of Service: 08/15/24 <Faraz Diez PA-C - Last Filed: 08/15/24 10:02> 08/15/24 <Jesus Allen MD - Last Filed: 08/15/24 09:44> Interval history: Patient is doing well this morning, her pain at rest is well controlled. She continues to endorse crampy pain in the abdomen when she goes to the bathroom to urinate and sits on the toilet. She continues to pass flatus through the ostomy site, no bowel movement at this time. She states that when she resumed diet at lunch yesterday she large meal and began to feel nauseous and bloated, so for dinner she only had a small amount of food and again had some nausea. She has been ambulating around the floor as tolerated her pain is well controlled during this. <DAVID Babb Last Filed: 08/15/24 10:02> Physical Exam 2 Vital Signs: Vital Signs: Last Vital Signs Temp 96.9 F 08/15/24 08:00 Pulse 88 08/15/24 08:00 Resp 16 08/15/24 08:00 BP 117/57 L 08/15/24 08:00 Pulse Ox 98 08/15/24 08:00 O2 Del Method Room Air 08/15/24 08:00 O2 Flow Rate 2 08/12/24 16:34 BMI result Body Mass Index 42.6 <DAVID Babb Last Filed: 08/15/24 10:02> Const: General: comfortable and no acute distress <DAVID Babb Last Filed: 08/15/24 10:02> Orientation/consciousness: patient oriented x3 <DAVID Babb Last Filed: 08/15/24 10:02> Resp: Effort & Inspection: normal respiratory effort and able to speak in complete sentences <DAVID Babb Last Filed: 08/15/24 10:02> GI: Other: Incision sites the clean dry and intact Steri-Strips in place Ostomy site appears healthy, bright red tissue. Small amounts of sanguinous fluid in the bag <DAVID Babb Last Filed: 08/15/24 10:02> Inspection: Yes distended (Mild) <DAVID Babb Filed: 08/15/24 10:02> Palpation (GI): Soft to palpation, not firm, Tenderness to palpation present (GI) (Incisional site tenderness), no guarding and not rigid <Faraz Diez PA-C - Last Filed: 08/15/24 10:02> Neuro: General: patient oriented x3 <Faraz Diez PA-C - Last Filed: 08/15/24 10:02> Objective Data Active Medications Calcium Carbonate (Calcium Carbonate 750 Mg Tab.Chew) 750 mg PO Q4H PRN PRN Reason: Heartburn Last Admin: 08/13/24 05:05 Dose: 750 mg Documented By: YOLANDA Clonazepam (Clonazepam 1 Mg Tablet) 1 mg PO TID PRN PRN Reason: Anxiety Last Admin: 08/13/24 08:27 Dose: 1 mg Documented By: CARMELO Docusate Sodium (Docusate Sodium 100 Mg Capsule) 100 mg PO BID [facility] Last Admin: 08/14/24 21:11 Dose: 100 mg Documented By: JHON Famotidine (Famotidine 20 Mg Tablet) 20 mg PO BID [facility] Last Admin: 08/14/24 21:11 Dose: 20 mg Documented By: JHON Fluticasone Propionate (Fluticasone Propionate Nasal 16 Gm [place]) 2 spray NOSTRIL-B DAILY PRN PRN Reason: Allergy Symptoms Hydromorphone HCl (Hydromorphone Hcl 1 Mg/Ml Syringe) 1 mg IVPUSH Q4H PRN; Protocol PRN Reason: Pain, Severe (Pain Scale 7-10) Last Admin: 08/15/24 06:22 Dose: 1 mg Documented By: JHON Hydroxyzine HCl (Hydroxyzine Hcl 25 Mg Tablet) 25 mg PO BEDTIME [facility] Last Admin: 08/14/24 21:11 Dose: 25 mg Documented By: JHON Lactated Ringer's (Lr) 1,000 mls @ 80 mls/hr IVCONT .[id number] [facility] Last Admin: 08/15/24 05:23 Dose: 80 mls/hr Documented By: JHON Acetaminophen (Ofirmev) 1,000 mg in 100 mls @ 400 mls/hr IV Q6H [facility] Last Infusion: 08/15/24 03:15 Dose: Infused Documented By: JHON Ketorolac Tromethamine (Ketorolac Tromethamine 30 Mg/Ml Vial) 30 mg IVPUSH Q6H [facility] Last Admin: 08/15/24 01:37 Dose: 30 mg Documented By: JHON Lactulose (Lactulose 20 Gm/30 Ml Solution) 20 gm PO DAILY PRN PRN Reason: Constipation Lamotrigine (Lamotrigine 100 Mg Tablet) 200 mg PO DAILY [facility] Last Admin: 08/14/24 09:15 Dose: 200 mg Documented By: MELISA Lamotrigine (Lamotrigine 25 Mg Tablet) 50 mg PO BEDTIME [facility] Last Admin: 08/14/24 21:11 Dose: 50 mg Documented By: JHON Magnesium Oxide (Magnesium Oxide 400 Mg Tablet) 400 mg PO DAILY [facility] Last Admin: 08/14/24 09:15 Dose: 400 mg Documented By: MELISA Melatonin (Melatonin 3 Mg Tablet) 6 mg PO BEDTIME PRN PRN Reason: Insomnia Mesalamine (Mesalamine 0.375 Gm Cap.Er.24h) 1.5 gm PO DAILY [facility] Last Admin: 08/14/24 09:15 Dose: 1.5 gm Documented By: MELISA Mirabegron (Mirabegron 50 Mg Tab.Er.24h) 50 mg PO DAILY [facility] Last Admin: 08/14/24 09:16 Dose: 50 mg Documented By: MELISA Omeprazole (Omeprazole 20 Mg Capsule.Dr) 20 mg PO BID@0630,1630 [facility] Last Admin: 08/15/24 05:23 Dose: 20 mg Documented By: JHON Ondansetron HCl (Ondansetron Hcl 4 Mg/2 Ml Vial) 4 mg IVPUSH Q6H PRN PRN Reason: Nausea and Vomiting Last Admin: 08/14/24 09:13 Dose: 4 mg Documented By: MELISA Oxycodone HCl (Oxycodone Hcl Immed Release 5 Mg Tablet) 10 mg PO Q4H PRN PRN Reason: Pain, Moderate(Pain Scale 4-6) Last Admin: 08/12/24 22:57 Dose: 10 mg Documented By: YOLANDA Sodium Chloride (0.9 % Sodium Chloride Flush 3 Ml Syringe) 3 ml IVFLUSH QSHIFT [facility] Last Admin: 08/15/24 07:11 Dose: Not Given Documented By: MELISA Non-Admin Reason: IV Running Tramadol HCl (Tramadol Hcl 50 Mg Tablet) 50 mg PO Q4H PRN PRN Reason: Pain, Moderate(Pain Scale 4-6) Last Admin: 08/14/24 23:47 Dose: 50 mg Documented By: JHON Valacyclovir HCl (Valacyclovir Hcl 500 Mg Tablet) 500 mg PO DAILY [facility] Last Admin: 08/14/24 09:16 Dose: 500 mg Documented By: MELISA Vitamin D (Cholecalciferol (Vitamin D3) 25 Mcg Tablet) 125 mcg PO DAILY [facility] Last Admin: 08/14/24 09:16 Dose: 125 mcg Documented By: MELISA Vortioxetine (Vortioxetine Hydrobromide 20 Mg Tablet) 20 mg PO DAILY [facility] Last Admin: 08/14/24 09:15 Dose: 20 mg Documented By: MELISA <Faraz Diez PA-C - Last Filed: 08/15/24 10:02> Labs CBC & Chem 7: 08/13/24 06:12 08/13/24 06:12 <Faraz Diez PA-C - Last Filed: 08/15/24 10:02> Procedures Date of Service Date of Service: 08/15/24 <Faraz Diez PA-C - Last Filed: 08/15/24 10:02> 08/15/24 <Jesus Allen MD - Last Filed: 08/15/24 09:44> Progress Note: A&P Assessment and plan (1) S/P colostomy: Status: Acute <Faraz Diez PA-C - Last Filed: 08/15/24 10:02> Assessment and Plan: She says she gets nauseous with larger meals Passing good flatus via the stoma No stools yet No vomiting Abdomen is soft although mildly distended Continue to encourage ambulation Await good return of GI function Stoma looks able Incision clean Seen and examined independently <Jesus Allen MD - Last Filed: 08/15/24 09:44> Assessment and Plan: 43-year-old female status post colostomy creation POD 3 patient is doing okay today. She is improving, she continues to have some abdominal cramping pain when she urinates. Her pain is well controlled at rest and with ambulation throughout the floor. Her diet was advanced to full yesterday, the patient states she had a large lunch and started to feel some nausea and thus did not want to really eat much of her dinner. She plans to try smaller meals. On exam her abdomen is soft, mildly distended, tender to palpation around the incision sites. Incision sites look clean dry and intact. No surrounding erythema, oozing, discharge. Ostomy site appears healthy. She is passing flatus however has not passed a bowel movement at this time Continue with regular diet, recommended small frequent meals Continue pain management Recommend ambulation, incentive spirometry as tolerated Continue DVT prophylaxis <Faraz Diez PA-C - Last Filed: 08/15/24 10:02> Time Spent With Patient Time: Total time managing care of this patient today ____ minutes. <Faraz Diez PA-C - Last Filed: 08/15/24 10:02> Quality Stroke Does the patient have a stroke diagnosis?: No <Faraz Diez PA-C - Last Filed: 08/15/24 10:02> VTE Prior VTE?: No <Faraz Diez PA-C - Last Filed: 08/15/24 10:02> VTE Risk Level:: Medical - low <DAVID Babb Last Filed: 08/15/24 10:02> VTE Device Contraindication: N/A - Device Ordered <DAVID Babb Last Filed: 08/15/24 10:02> VTE Drug Contraindication: Treatment Not Indicated <DAVID Babb Last Filed: 08/15/24 10:02>
[2024-08-15] MEDS: MESALAMINE 0.375 GM 1.5 GM PO (09:03)
[2024-08-15] MEDS: Cholecalciferol (Vitamin D3) 25 MCG TABLET 125 MCG PO (09:04)
[2024-08-15] MEDS: lamoTRIgine 100 MG TABLET 200 MG PO (09:04)
[2024-08-15] MEDS: Famotidine 20 MG TABLET PO ×2 (09:04→20:52)
[2024-08-15] MEDS: valACYclovir HCL 500 MG TABLET PO (09:04)
[2024-08-15] MEDS: Mirabegron 50 MG TAB.ER.24H PO (09:04)
[2024-08-15] MEDS: traMADoL HCL 50 MG TABLET PO ×3 (09:04→21:44)
[2024-08-15] MEDS: Vortioxetine Hydrobromide 20 MG TABLET PO (09:05)
[2024-08-15] MEDS: Docusate Sodium 100 MG CAPSULE PO ×2 (09:05→20:52)
[2024-08-15] MEDS: Magnesium Oxide 400 MG TABLET PO (09:05)
[2024-08-15] MEDS: ondansetron HCL 4 MG/2 ML VIAL IVPUSH ×2 (09:22→15:44)
--- NOTE | 2024-08-15 14:17 | MHC.CM.PN ---
PT NOT YET MEDICALLY CLEARED DCP: HOME [employer]UME [employer] AND NEW [facility] [facility] TO TRANSPORT
[2024-08-15 15:10] VITALS: BP 123/58; PULSE 87; RESP 17; TEMP 36.6; O2SAT 95
--- NOTE | 2024-08-15 17:00 | HO.OSTOMY ---
Ostomy Consult: Follow up Teaching 43yr old female admitted to [facility] on 08/12/24 see H&P for detailed history and admission.? Consult for follow up new ostomy teaching. ?She had a Colostomy creation on 08/12/[address] Allen. 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 She is alert and oriented x 3, She currently complains of lack of sleep and rest overnight. ? She reports she has ambulated and is currently using her IS, she is tolerating clears with mild nausea. We discussed her pain control at 08/09 at the current moment which is significantly improved per pt statement. We began by discussing general knowledge about the Colostomy and questions she had. ?We discussed opening and closing the ostomy pouch. She had not yet emptied his pouch only bowel sweat is noted.? She was able to easily provide an open close on an empty pouch. We discussed the importance of emptying pouch when 1/3 to 1/2 full, how to empty pouch, and lining water with toilet paper to prevent splash back. She was educated the pouch would be changed twice a week at this time. She had flight of ideas at various times but was able to redirect. She will beenfit from A services for continued teaching however she shows great strength towards the end of teaching with mastering concepts. Together we performed a stoma model pouch change. When we performed her pouch change she performed many of the steps independently and very little cueing. She appears to have a strong support system in place of her and exhibit preparator. She had several questions that led to deeper discussion. Videos discussed but she declined watching them at this time. She was provided written instruction and we went over written paper work. She was given some supplied for start at home and aware that Rx written for pouches and rings will be sent by Outpt nurse to [facility] for home delivery.? She was also educated on when to contact wastewater treatment plant operator/Dr Allen's office/seek emergency medical treatment. Permission was granted for pouch assessment and no leak was noted.? Stoma is red and moist.? Pouch change performed stoma size 28cm x 35cm oval. She reported having no questions at this time. ?Patient was made aware that I will return to bedside early next week for ongoing education if she remains inpatient. At this time she still does not have stool production gas but no stool noted. She will benefit from VNA services at time of discharge. ?All questions and concerns addressed at this time. Next teaching session goals: Demonstrate open and close independently Verbal walk through a pouch change.
[2024-08-15 19:18] VITALS: BP 112/63; PULSE 103; RESP 18; TEMP 36.3; O2SAT 98
[2024-08-15] MEDS: lamoTRIgine 25 MG TABLET 50 MG PO (20:52)
[2024-08-15] MEDS: hydrOXYzine HCL 25 MG TABLET PO (20:52)
[2024-08-16] VITALS (8 sets, daily range): BP systolic 120–142; BP diastolic 57–73; PULSE 89–122; RESP 18; TEMP 36.2–39.6; O2SAT 96–97
[2024-08-16] MEDS: Ketorolac Tromethamine 30 MG/ML VIAL IVPUSH ×4 (01:53→20:40)
[2024-08-16] MEDS: HYDROmorphone HCl 1 MG/ML SYRINGE IVPUSH ×3 (05:13→22:21)
[2024-08-16] MEDS: Lactated Ringers 1,000 ML 80 ML IVCONT ×2 (05:13→17:19)
[2024-08-16] MEDS: Omeprazole 20 MG CAPSULE.DR PO ×2 (06:33→17:12)
[2024-08-16] MEDS: ondansetron HCL 4 MG/2 ML VIAL IVPUSH (08:33)
[2024-08-16] MEDS: Acetaminophen 325 MG TABLET 650 MG PO (08:34)
[2024-08-16 08:54] LABS: MANUAL DIFF FLAG NO
[2024-08-16 08:58] LABS: Basophils Percent Auto 0.3 % (0-2); Eosinophils Absolute Auto 0.7 X10*3/uL (0.0-0.4); Eosinophils Percent Auto 5.7 % (0-4); Hematocrit 34.5 % (37.0-47.0); Hemoglobin 11.8 g/dl (12.0-16.0); Imm Gran Abs Auto 0.06 X10*3/uL (0.00-0.03); Imm Gran Pct Auto 0.5 % (0.0-0.4); Lymphocytes Absolute Auto 1.9 X10*3/uL (1.2-4.9); Lymphocytes Percent Auto 16.3 % (20-40); Mean Corpuscular HGB Conc 34.2 g/dl (31.0-35.0); Mean Corpuscular Hemoglobin 27.8 pg (27.0-33.0); Mean Corpuscular Volume 81.2 fL (80.0-98.0); Monocytes Absolute Auto 0.8 X10*3/uL (0.1-1.2); Monocytes Percent Auto 6.7 % (2-11); Neutrophils Absolute Auto 8.3 x10*3/uL (2.0-8.3); Neutrophils Percent Auto 70.5 % (45-73); Platelet Count 331 X10*3/uL (160-400); Red Blood Count 4.25 X10*6/uL (4.20-5.50); Red Cell Distribution Width 13.8 % (11.0-16.0); White Blood Count 11.8 X10*3/uL (4.8-10.8)
[2024-08-16 09:10] LABS: Anion Gap 12 (12-20); Blood Urea Nitrogen 5 mg/dL (9-16); Calcium 8.4 mg/dL (8.4-10.2); Carbon Dioxide 22 mmol/L (22-29); Chloride 102 mmol/L (96-108); Creatinine Clr Calc Pharmacy 127.7; Estimated Glomerular Filt Rate > 60; Glucose Random 106 mg/dL (60-115); Potassium 4.2 mmol/L (3.3-5.1); Sodium 132 mmol/L (135-145)
[2024-08-16] MEDS: traMADoL HCL 50 MG TABLET PO ×2 (09:23→17:39)
[2024-08-16] MEDS: 0.9 % Sodium Chloride Flush 3 ML SYRINGE IVFLUSH ×2 (09:23→20:45)
[2024-08-16 09:58] LABS: Appearance Urine Clear; Color Urine Yellow; Glucose Urine UA Negative (Negative); Leukocyte Esterase Urine Negative (Negative); Nitrite Urine Negative (Negative); PH 8.5 (5.0-9.0); Urine Blood Negative (Negative); Urine Ketones Trace mg/dL (Negative); Urine Protein Negative (Neg-Trace)
[2024-08-16 10:03] LABS: Bacteria Urine None Seen (None Seen); Hyaline Casts Urine 0-2 /LPF (0-2); RBC Urine 0-2 /HPF (0-2); Squamous Epithelial Cell Urine 0-2 /HPF (0-2); WBC Urine 0-5 /HPF (0-5)
--- NOTE | 2024-08-16 10:28 | P.PNGS_ITS ---
Subjective Subjective Date of Service: 08/17/24 Interval history: Anxious this morning Says she had an argument with nursing staff last night Had fever this morning Describes severe burning frequency with urination She does have a history of UTIs and interstitial cystitis Passing flatus via stoma No stool yet Taking small amounts of regular food Physical Exam 2 Vital Signs: Vital Signs: Last Vital Signs Temp 103.2 F H 08/16/24 07:58 Pulse 122 H 08/16/24 07:58 Resp 18 08/16/24 07:58 BP 142/73 H 08/16/24 07:58 Pulse Ox 96 08/16/24 07:58 O2 Del Method Room Air 08/16/24 07:58 O2 Flow Rate 2 08/12/24 16:34 BMI result Body Mass Index 42.6 Const: Other: Anxious General: no acute distress Resp: Effort & Inspection: normal respiratory effort Cardio: Rate: tachycardic GI: Other: Somewhat distended but soft, stoma viable, no stool, incision clean and dry, no cellulitis Palpation (GI): not firm, no guarding and not rigid Objective Data Active Medications Acetaminophen (Acetaminophen 325 Mg Tablet) 650 mg PO Q4H PRN PRN Reason: Pain, Mild 1-3,fever,headache Last Admin: 08/16/24 08:34 Dose: 650 mg Documented By: MANOJ Calcium Carbonate (Calcium Carbonate 750 Mg Tab.Chew) 750 mg PO Q4H PRN PRN Reason: Heartburn Last Admin: 08/13/24 05:05 Dose: 750 mg Documented By: YOLANDA Clonazepam (Clonazepam 1 Mg Tablet) 1 mg PO TID PRN PRN Reason: Anxiety Last Admin: 08/13/24 08:27 Dose: 1 mg Documented By: CARMELO Docusate Sodium (Docusate Sodium 100 Mg Capsule) 100 mg PO BID [facility] Last Admin: 08/15/24 20:52 Dose: 100 mg Documented By: ADRIEL Famotidine (Famotidine 20 Mg Tablet) 20 mg PO BID [facility] Last Admin: 08/15/24 20:52 Dose: 20 mg Documented By: ADRIEL Fluticasone Propionate (Fluticasone Propionate Nasal 16 Gm [place]) 2 spray NOSTRIL-B DAILY PRN PRN Reason: Allergy Symptoms Hydromorphone HCl (Hydromorphone Hcl 1 Mg/Ml Syringe) 1 mg IVPUSH Q4H PRN; Protocol PRN Reason: Pain, Severe (Pain Scale 7-10) Last Admin: 08/16/24 05:13 Dose: 1 mg Documented By: ADRIEL Hydroxyzine HCl (Hydroxyzine Hcl 25 Mg Tablet) 25 mg PO BEDTIME [facility] Last Admin: 08/15/24 20:52 Dose: 25 mg Documented By: ADRIEL Lactated Ringer's (Lr) 1,000 mls @ 80 mls/hr IVCONT .[id number] [facility] Last Admin: 08/16/24 05:13 Dose: 80 mls/hr Documented By: ADRIEL Ketorolac Tromethamine (Ketorolac Tromethamine 30 Mg/Ml Vial) 30 mg IVPUSH Q6H [facility] Last Admin: 08/16/24 08:33 Dose: 30 mg Documented By: MANOJ Lactulose (Lactulose 20 Gm/30 Ml Solution) 20 gm PO DAILY PRN PRN Reason: Constipation Lamotrigine (Lamotrigine 100 Mg Tablet) 200 mg PO DAILY [facility] Last Admin: 08/15/24 09:04 Dose: 200 mg Documented By: MELISA Lamotrigine (Lamotrigine 25 Mg Tablet) 50 mg PO BEDTIME [facility] Last Admin: 08/15/24 20:52 Dose: 50 mg Documented By: ADRIEL Magnesium Oxide (Magnesium Oxide 400 Mg Tablet) 400 mg PO DAILY [facility] Last Admin: 08/15/24 09:05 Dose: 400 mg Documented By: MELISA Melatonin (Melatonin 3 Mg Tablet) 6 mg PO BEDTIME PRN PRN Reason: Insomnia Mesalamine (Mesalamine 0.375 Gm Cap.Er.24h) 1.5 gm PO DAILY [facility] Last Admin: 08/15/24 09:03 Dose: 1.5 gm Documented By: MELISA Mirabegron (Mirabegron 50 Mg Tab.Er.24h) 50 mg PO DAILY [facility] Last Admin: 08/15/24 09:04 Dose: 50 mg Documented By: MELISA Omeprazole (Omeprazole 20 Mg Capsule.Dr) 20 mg PO BID@0630,1630 [facility] Last Admin: 08/16/24 06:33 Dose: 20 mg Documented By: ADRIEL Ondansetron HCl (Ondansetron Hcl 4 Mg/2 Ml Vial) 4 mg IVPUSH Q6H PRN PRN Reason: Nausea and Vomiting Last Admin: 08/16/24 08:33 Dose: 4 mg Documented By: MANOJ Oxycodone HCl (Oxycodone Hcl Immed Release 5 Mg Tablet) 10 mg PO Q4H PRN PRN Reason: Pain, Moderate(Pain Scale 4-6) Last Admin: 08/12/24 22:57 Dose: 10 mg Documented By: YOLANDA Sodium Chloride (0.9 % Sodium Chloride Flush 3 Ml Syringe) [facility] Last Admin: 08/16/24 09:23 Dose: 3 ml Documented By: MANOJ Tramadol HCl (Tramadol Hcl 50 Mg Tablet) 50 mg PO Q4H PRN PRN Reason: Pain, Moderate(Pain Scale 4-6) Last Admin: 08/16/24 09:23 Dose: 50 mg Documented By: MANOJ Valacyclovir HCl (Valacyclovir Hcl 500 Mg Tablet) 500 mg PO DAILY [facility] Last Admin: 08/15/24 09:04 Dose: 500 mg Documented By: MELISA Vitamin D (Cholecalciferol (Vitamin D3) 25 Mcg Tablet) 125 mcg PO DAILY [facility] Last Admin: 08/15/24 09:04 Dose: 125 mcg Documented By: MELISA Vortioxetine (Vortioxetine Hydrobromide 20 Mg Tablet) 20 mg PO DAILY [facility] Last Admin: 08/15/24 09:05 Dose: 20 mg Documented By: MELISA Labs 08/16/24 08:41 08/16/24 08:41 Labs: Laboratory Results - last 24 hr 08/16/24 08/16/24 08:41 09:17 MCV 81.2 MCH 27.8 MCHC 34.2 RDW 13.8 Plt Count 331 MPV 10.0 Immature Gran % (Auto) 0.5 H Neut % (Auto) 70.5 Lymph % (Auto) 16.3 L [place] % (Auto) 6.7 Eos % (Auto) 5.7 H Baso % (Auto) 0.3 Lymph # (Auto) 1.9 [place] # (Auto) 0.8 Eos # (Auto) 0.7 H Baso # (Auto) 0.0 Abs Immat Gran (auto) 0.06 H Absolute Neuts (auto) 8.3 Absolute Nucleated RBC 0.000 Nucleated RBC % (auto) 0.0 Anion Gap 12 Estim Creat Clear Calc 127.7 Estimated GFR > 60 Random Glucose 106 Calcium 8.4 Urine Color Yellow Urine Appearance Clear Urine pH 8.5 Ur Specific [place] 1.010 Urine Protein Negative Urine Glucose (UA) Negative Urine Ketones Trace Urine Blood Negative Urine Nitrite Negative Ur Leukocyte Esterase Negative Urine RBC 0-2 Urine WBC 0-5 Ur Squamous Epith Cells 0-2 Urine Bacteria None Seen Hyaline Casts 0-2 Procedures Date of Service Date of Service: 08/17/24 Progress Note: A&P Assessment and plan (1) Colostomy in place: Status: Acute Assessment and Plan: Status post colostomy for question of sigmoid stricture, severe constipation and diarrhea with incontinence No stool via stoma yet but passing flatus On regular diet Colace started She had high-grade temp this morning Describes severe urinary symptoms - she has a history of interstitial cystitis, frequent UTIs Labs okay Encouraged ambulation Hospitalist consult Time Spent With Patient Time: Total time managing care of this patient today ____ minutes. Quality Stroke Does the patient have a stroke diagnosis?: No VTE Prior VTE?: No VTE Risk Level:: Medical - low VTE Device Contraindication: N/A - Device Ordered VTE Drug Contraindication: Treatment Not Indicated
[2024-08-16] MEDS: Famotidine 20 MG TABLET PO ×2 (10:56→20:43)
[2024-08-16] MEDS: valACYclovir HCL 500 MG TABLET PO (10:56)
[2024-08-16] MEDS: Magnesium Oxide 400 MG TABLET PO (10:56)
[2024-08-16] MEDS: Vortioxetine Hydrobromide 20 MG TABLET PO (10:56)
[2024-08-16] MEDS: Docusate Sodium 100 MG CAPSULE PO ×2 (10:56→20:41)
[2024-08-16] MEDS: lamoTRIgine 100 MG TABLET 200 MG PO (10:56)
[2024-08-16] MEDS: MESALAMINE 0.375 GM 1.5 GM PO (10:56)
[2024-08-16] MEDS: Cholecalciferol (Vitamin D3) 25 MCG TABLET 125 MCG PO (10:56)
[2024-08-16] MEDS: Mirabegron 50 MG TAB.ER.24H PO (10:56)
[2024-08-16 12:41] LABS: Lactic Acid 0.9 mmol/L (0.5-2.0)
[2024-08-16 13:33] LABS: Influenza A PCR NEGATIVE (Negative); Influenza B PCR NEGATIVE (Negative); Resp Syncy Virus RNA Qual PCR NEGATIVE (Negative); SARS COV2 PCR INHOUSE NEGATIVE (Negative)
--- NOTE | 2024-08-16 13:36 | P.CONHOSP_ITS ---
History of Present Illness Data of Consult Service Date: 08/16/24 Primary Care Provider: Ismael Gary DO HPI Reason for consult: Post-op fever, hx of interstitial cystitis Pt is a 43-year-old female with a PMH significant for right occipital neuralgia, FND, IBS, hx of epidural abscess L2-L5, GERD, anxiety, and depression admitted to the hospital for elective sigmoid colostomy after long hx of constipation, diarrhea, and incontinence. Hospitalist consult for postop fever. Pt noted to be febrile at 103.2 earlier in the day. Pt reports she felt chills, and uncontrollable shaking. Reports has been urinating more than normal and was some discomfort. Denies any significant abdominal pain other than at surgical sites. No nausea or vomiting. Denies cough, SOB, or difficulty breathing. Denies chest pain/pressure, palpitations. Review of Systems 2 Review of Systems: Yes all other systems are reviewed and are negative [facility] Medical History (Updated 08/16/24 @ 20:38 by MARYELLEN Bray) Colostomy in place Hx of flexible sigmoidoscopy Proctosigmoiditis Stricture of sigmoid colon Colon wall thickening Obesity, Class II, BMI 35-39.9 IBS (irritable bowel syndrome) History of colitis Gastric ulcer Interstitial cystitis Occipital neuralgia of right side History of suicidal ideation Anxiety Agoraphobia MDD (major depressive disorder) PTSD (post-traumatic stress disorder) Family History Father Prostate cancer Maternal Uncle Colon cancer Maternal Grandmother Breast cancer Surgical History (Updated 08/15/24 @ 08:54 by Faraz Diez PA-C) Hx of colonoscopy Hx of section H/O: hysterectomy Hx of cholecystectomy (~12/2022) Social History Household Members: Spouse and Children Housing: House Do you presently have visiting nurse or other home services: Yes (ADULT EDUCATION INSTRUCTOR to help with ADLs) Comment: unknown at time report written Patient Tobacco Use Status: Never used Tobacco Use of substances other than those prescribed or required for medical reasons: No Currently Displaying Signs/Symptoms of Drug Intoxication Withdrawal: No Do you feel safe in your current relationship?: Yes Advance Directives: No Advance Directives Information Provided: No Recently lost weight without trying: No How much weight loss: Unsure Eating poorly because of decreased appetite: No Nutrition screen score: 2 Patient : No Poor oral hygiene: No service: No Meds Allergies Allergy/AdvReac Type Severity Reaction Status Date / Time propofol Allergy Intermediate Itching Verified 08/12/24 12:08 morphine Allergy Mild Itching Verified 08/12/24 12:08 Active Medications: Current Medications Acetaminophen (Acetaminophen 325 Mg Tablet) 650 mg PO Q4H PRN PRN Reason: Pain, Mild 1-3,fever,headache Last Admin: 08/16/24 08:34 Dose: 650 mg Calcium Carbonate (Calcium Carbonate 750 Mg Tab.Chew) 750 mg PO Q4H PRN PRN Reason: Heartburn Last Admin: 08/13/24 05:05 Dose: 750 mg Clonazepam (Clonazepam 1 Mg Tablet) 1 mg PO TID PRN PRN Reason: Anxiety Last Admin: 08/13/24 08:27 Dose: 1 mg Docusate Sodium (Docusate Sodium 100 Mg Capsule) 100 mg PO BID [facility] Last Admin: 08/16/24 10:56 Dose: 100 mg Famotidine (Famotidine 20 Mg Tablet) 20 mg PO BID [facility] Last Admin: 08/16/24 10:56 Dose: 20 mg Fluticasone Propionate (Fluticasone Propionate Nasal 16 Gm [place]) 2 spray NOSTRIL-B DAILY PRN PRN Reason: Allergy Symptoms Hydromorphone HCl (Hydromorphone Hcl 1 Mg/Ml Syringe) 1 mg IVPUSH Q4H PRN; Protocol PRN Reason: Pain, Severe (Pain Scale 7-10) Last Admin: 08/16/24 05:13 Dose: 1 mg Hydroxyzine HCl (Hydroxyzine Hcl 25 Mg Tablet) 25 mg PO BEDTIME [facility] Last Admin: 08/15/24 20:52 Dose: 25 mg Ketorolac Tromethamine (Ketorolac Tromethamine 30 Mg/Ml Vial) 30 mg IVPUSH Q6H [facility] Last Admin: 08/16/24 12:46 Dose: 30 mg Lactulose (Lactulose 20 Gm/30 Ml Solution) 20 gm PO DAILY PRN PRN Reason: Constipation Lamotrigine (Lamotrigine 100 Mg Tablet) 200 mg PO DAILY [facility] Last Admin: 08/16/24 10:56 Dose: 200 mg Lamotrigine (Lamotrigine 25 Mg Tablet) 50 mg PO BEDTIME [facility] Last Admin: 08/15/24 20:52 Dose: 50 mg Magnesium Oxide (Magnesium Oxide 400 Mg Tablet) 400 mg PO DAILY [facility] Last Admin: 08/16/24 10:56 Dose: 400 mg Melatonin (Melatonin 3 Mg Tablet) 6 mg PO BEDTIME PRN PRN Reason: Insomnia Mesalamine (Mesalamine 0.375 Gm Cap.Er.24h) 1.5 gm PO DAILY [facility] Last Admin: 08/16/24 10:56 Dose: 1.5 gm Mirabegron (Mirabegron 50 Mg Tab.Er.24h) 50 mg PO DAILY [facility] Last Admin: 08/16/24 10:56 Dose: 50 mg Omeprazole (Omeprazole 20 Mg Capsule.Dr) 20 mg PO BID@0630,1630 [facility] Last Admin: 08/16/24 06:33 Dose: 20 mg Ondansetron HCl (Ondansetron Hcl 4 Mg/2 Ml Vial) 4 mg IVPUSH Q6H PRN PRN Reason: Nausea and Vomiting Last Admin: 08/16/24 08:33 Dose: 4 mg Oxycodone HCl (Oxycodone Hcl Immed Release 5 Mg Tablet) 10 mg PO Q4H PRN PRN Reason: Pain, Moderate(Pain Scale 4-6) Last Admin: 08/12/24 22:57 Dose: 10 mg Sodium Chloride (0.9 % Sodium Chloride Flush 3 Ml Syringe) 3 ml IVFLUSH QSHIFT [facility] Last Admin: 08/16/24 09:23 Dose: 3 ml Tramadol HCl (Tramadol Hcl 50 Mg Tablet) 50 mg PO Q4H PRN PRN Reason: Pain, Moderate(Pain Scale 4-6) Last Admin: 08/16/24 09:23 Dose: 50 mg Valacyclovir HCl (Valacyclovir Hcl 500 Mg Tablet) 500 mg PO DAILY [facility] Last Admin: 08/16/24 10:56 Dose: 500 mg Vitamin D (Cholecalciferol (Vitamin D3) 25 Mcg Tablet) 125 mcg PO DAILY [facility] Last Admin: 08/16/24 10:56 Dose: 125 mcg Vortioxetine (Vortioxetine Hydrobromide 20 Mg Tablet) 20 mg PO DAILY [facility] Last Admin: 08/16/24 10:56 Dose: 20 mg Home Medications ?Medication ?Instructions ?Recorded ?Confirmed ?Last Taken ?Type lamotrigine 200 mg tablet 200 mg PO DAILY 01/02/23 08/07/24 07/25/24 History valacyclovir 500 mg tablet 500 mg PO DAILY 01/02/23 08/07/24 07/25/24 History vortioxetine 20 mg tablet 20 mg PO DAILY 01/02/23 08/07/24 07/25/24 History (Trintellix) clonazepam 1 mg tablet 1 mg PO TID 01/08/24 08/07/24 07/25/24 History famotidine 20 mg tablet 20 mg PO BID 01/08/24 08/07/24 07/25/24 History hydroxyzine HCl 25 mg tablet 25 mg PO BEDTIME 01/08/24 08/07/24 07/24/24 History lamotrigine 25 mg tablet 50 mg PO BEDTIME 01/08/24 08/07/24 07/24/24 History bisacodyl 5 mg tablet,delayed 10 mg PO BEDTIME 07/25/24 08/12/24 07/25/24 History release esomeprazole magnesium 40 mg 40 mg PO DAILY 07/25/24 08/07/24 07/25/24 History capsule,delayed release (Nexium) fluticasone propionate 50 2 spray intranasal DAILY PRN 07/25/24 08/07/24 Unknown History mcg/actuation nasal Allergy Symptoms spray,suspension magnesium oxide 400 mg PO DAILY 07/25/24 08/07/24 07/25/24 History mirabegron 50 mg tablet,extended 50 mg PO DAILY 07/25/24 08/07/24 07/25/24 History release 24 hr (Myrbetriq) eszopiclone 3 mg tablet (Lunesta) 3 mg PO BEDTIME 08/06/24 08/07/24 Unknown History sennosides 8.6 mg tablet (senna) 17.2 mg PO BEDTIME PRN constipation 08/12/24 08/12/24 Unknown History tamsulosin 0.4 mg capsule 0.4 mg PO BEDTIME 08/12/24 08/12/24 Unknown History Physical Exam 2 Vital Signs and Narrative: Vital Signs: Last Vital Signs Temp 98.7 F 08/16/24 09:34 Pulse 106 H 08/16/24 12:52 Resp 18 08/16/24 07:58 BP 142/73 H 08/16/24 07:58 Pulse Ox 96 08/16/24 07:58 O2 Del Method Room Air 08/16/24 07:58 O2 Flow Rate 2 08/12/24 16:34 BMI result Body Mass Index 42.6 General: AOx3, no acute distress Resp: CTA bilaterally CVS: S1, S2, RRR GI: +BS, no distention, appropriate tenderness at surgical sites. Ostomy in place without any noticeable output. Skin: Warm, dry Neuro: Cranial nerves II-XII grossly intact bilaterally. Motor grossly intact bilaterally Extremities: No edema Psych: Appropriate affect Results Labs 08/16/24 08:41 08/16/24 08:41 Labs: Laboratory Results - last 24 hr 08/16/24 08/16/24 08/16/24 08:41 09:17 12:14 MCV 81.2 MCH 27.8 MCHC 34.2 RDW 13.8 Plt Count 331 MPV 10.0 Immature Gran % (Auto) 0.5 H Neut % (Auto) 70.5 Lymph % (Auto) 16.3 L [place] % (Auto) 6.7 Eos % (Auto) 5.7 H Baso % (Auto) 0.3 Lymph # (Auto) 1.9 [place] # (Auto) 0.8 Eos # (Auto) 0.7 H Baso # (Auto) 0.0 Abs Immat Gran (auto) 0.06 H Absolute Neuts (auto) 8.3 Absolute Nucleated RBC 0.000 Nucleated RBC % (auto) 0.0 Anion Gap 12 Estim Creat Clear Calc 127.7 Estimated GFR > 60 Random Glucose 106 Lactic Acid 0.9 Calcium 8.4 Urine Color Yellow Urine Appearance Clear Urine pH 8.5 Ur Specific [place] 1.010 Urine Protein Negative Urine Glucose (UA) Negative Urine Ketones Trace Urine Blood Negative Urine Nitrite Negative Ur Leukocyte Esterase Negative Urine RBC 0-2 Urine WBC 0-5 Ur Squamous Epith Cells 0-2 Urine Bacteria None Seen Hyaline Casts 0-2 Influenza Type A (PCR) Influenza Type B (PCR) RSV RNA Qual (PCR) SARS-CoV-2 RNA (RT-PCR) 08/16/24 12:37 MCV MCH MCHC RDW Plt Count MPV Immature Gran % (Auto) Neut % (Auto) Lymph % (Auto) [place] % (Auto) Eos % (Auto) Baso % (Auto) Lymph # (Auto) [place] # (Auto) Eos # (Auto) Baso # (Auto) Abs Immat Gran (auto) Absolute Neuts (auto) Absolute Nucleated RBC Nucleated RBC % (auto) Anion Gap Estim Creat Clear Calc Estimated GFR Random Glucose Lactic Acid Calcium Urine Color Urine Appearance Urine pH Ur Specific [place] Urine Protein Urine Glucose (UA) Urine Ketones Urine Blood Urine Nitrite Ur Leukocyte Esterase Urine RBC Urine WBC Ur Squamous Epith Cells Urine Bacteria Hyaline Casts Influenza Type A (PCR) NEGATIVE Influenza Type B (PCR) NEGATIVE RSV RNA Qual (PCR) NEGATIVE SARS-CoV-2 RNA (RT-PCR) NEGATIVE Assessment and Plan (1) Fever: Status: Acute Plan Pt is a 43-year-old female with a PMH significant for right occipital neuralgia, FND, IBS, hx of epidural abscess L2-L5, GERD, anxiety, and depression admitted to the hospital for elective sigmoid colostomy after long hx of constipation, diarrhea, and incontinence. Hospitalist consult for postop fever. Fever Pt has spiked fever 103.2 Unclear etiology UA negative, CXR negative, tested negative for flu, RSV, COVID CT of abd found probable developing abscess with an anterior midnight soft tissues, negative for intraperitoneal abscess or obstruction Fluid collection drained at bedside by General surgery Lactic acid WNL at 0.9, obtained blood cultures x2 Will empirically treat with Zosyn, started 08/16/2024 Follow blood and wound specimen cultures Thank you for allowing us to participate in the care of this pt. Will continue to follow along with you.
[2024-08-16] MEDS: iohexoL 350 MG/ML 100 ML INFUS..BTL IV (14:00)
--- NOTE | 2024-08-16 14:54 | PM.EVENT ---
Event Note Date of Service: 08/16/24 Event Note: seen on afternoon rounds CT ordered earlier due to postop fever - postop changes in abdomen, ?abdl fluid collection under incision no obstruction I therefore opened the incision on the lowermost margin - seromatous fluid drained, cultures taken CXR does not show pneumonia UA does not suggest UTI uncertain etiology of fever early this morning will start empirically on Zosyn she looks comfortable sitting up on bed updated her and about results above Time Spent With Patient Time: Total time managing care of this patient today ____ minutes.
[2024-08-16] MEDS: Piperacillin Sodium/Tazobactam 3.375 GM in 0.9 % Sodium Chloride 50 ML IV ×2 (15:11→20:40)
--- NOTE | 2024-08-16 16:00 | PC.NURSE ---
Temp 103.2. HR 122. Ice packs applied. Dr. Allen notified and Tylenol ordered and given. On reassessment temp 98.7, then 97.3, HR 89. Hospitalist consult ordered. Blood work completed. Blood cultures drawn, Covid/Flu/RSV swab negative. CXR negative. CT abdomen showed probable developing abscess in anterior midline soft tissues. Dr. Allen notified. In to drain and culture abscess at incision site. Steri-strips intact and DSD over drainage site. Pain well controlled with scheduled toradol, prn dilaudid and tramadol.
[2024-08-16] MEDS: hydrOXYzine HCL 25 MG TABLET PO (20:42)
[2024-08-16] MEDS: lamoTRIgine 25 MG TABLET 50 MG PO (20:42)
[2024-08-17] MEDS: Ketorolac Tromethamine 30 MG/ML VIAL IVPUSH ×4 (01:25→20:13)
[2024-08-17] MEDS: Acetaminophen 325 MG TABLET 650 MG PO (01:26)
[2024-08-17] MEDS: Piperacillin Sodium/Tazobactam 3.375 GM in 0.9 % Sodium Chloride 50 ML IV ×4 (02:09→20:13)
[2024-08-17 03:31] VITALS: BP 117/57; PULSE 92; RESP 18; TEMP 36.6; O2SAT 94
[2024-08-17] MEDS: HYDROmorphone HCl 1 MG/ML SYRINGE IVPUSH ×2 (03:42→23:42)
[2024-08-17] MEDS: Omeprazole 20 MG CAPSULE.DR PO ×2 (05:55→16:24)
[2024-08-17] MEDS: Lactated Ringers 1,000 ML 80 ML IVCONT (05:57)
--- NOTE | 2024-08-17 06:37 | PC.NURSE ---
Pt reported increased pain throughout the night, mostly around 8-9/10, had total of two doses of Dilaudid, & scheduled toradol. Pt reported sharp pain to midline incision where Doctor took a culture swab on day shift. LS Clear, RR even and non-labored, BSx4 but hypoactive, still no BM out of LUQ osotomy, blood drainage in osotomy CDI. Abd round, tender and distended, reports feeling flatus pass as well, No edema noted. Call morales within reach.
[2024-08-17 07:38] VITALS: BP 105/57; PULSE 82; RESP 18; TEMP 36.6; O2SAT 98
[2024-08-17] MEDS: 0.9 % Sodium Chloride Flush 3 ML SYRINGE IVFLUSH ×3 (07:45→23:46)
--- NOTE | 2024-08-17 08:52 | P.PNIM_ITS ---
Subjective Subjective Date of Service: 08/17/24 Interval History: Follow up for pt admitted under general surgery services for elective sigmoid colostomy with consult for postop fever No acute events overnight Has remained afebrile No new pain, still complains of pain at bedside I&D site Overall doing better than yesterday Still no stool output in ostomy bag, only gas No nausea or vomiting Denies SOB, cough, chest pain Review of Systems Review of Systems: Yes all other systems are reviewed and are negative Physical Exam 2 Vital Signs: Vital Signs: Last Vital Signs Temp 97.9 F 08/17/24 07:38 Pulse 82 08/17/24 07:38 Resp 18 08/17/24 07:38 BP 105/57 L 08/17/24 07:38 Pulse Ox 98 08/17/24 07:38 O2 Del Method Room Air 08/17/24 07:38 O2 Flow Rate 2 08/12/24 16:34 BMI result Body Mass Index 42.6 General: AOx3, no acute distress Resp: CTA bilaterally CVS: S1, S2, RRR GI: +BS, no distention, appropriate tenderness at surgical sites. Ostomy in place without any noticeable output. Skin: Warm, dry Neuro: Cranial nerves II-XII grossly intact bilaterally. Motor grossly intact bilaterally Extremities: No edema Psych: Appropriate affect Objective Data Active Medications Acetaminophen (Acetaminophen 325 Mg Tablet) 650 mg PO Q4H PRN PRN Reason: Pain, Mild 1-3,fever,headache Last Admin: 08/17/24 01:26 Dose: 650 mg Documented By: YOLANDA Calcium Carbonate (Calcium Carbonate 750 Mg Tab.Chew) 750 mg PO Q4H PRN PRN Reason: Heartburn Last Admin: 08/13/24 05:05 Dose: 750 mg Documented By: YOLANDA Clonazepam (Clonazepam 1 Mg Tablet) 1 mg PO TID PRN PRN Reason: Anxiety Last Admin: 08/13/24 08:27 Dose: 1 mg Documented By: CARMELO Docusate Sodium (Docusate Sodium 100 Mg Capsule) 100 mg PO BID [facility] Last Admin: 08/16/24 20:41 Dose: 100 mg Documented By: YOLANDA Famotidine (Famotidine 20 Mg Tablet) 20 mg PO BID [facility] Last Admin: 08/16/24 20:43 Dose: 20 mg Documented By: YOLANDA Fluticasone Propionate (Fluticasone Propionate Nasal 16 Gm [place]) 2 spray NOSTRIL-B DAILY PRN PRN Reason: Allergy Symptoms Hydromorphone HCl (Hydromorphone Hcl 1 Mg/Ml Syringe) 1 mg IVPUSH Q4H PRN; Protocol PRN Reason: Pain, Severe (Pain Scale 7-10) Last Admin: 08/17/24 03:42 Dose: 1 mg Documented By: YOLANDA Hydroxyzine HCl (Hydroxyzine Hcl 25 Mg Tablet) 25 mg PO BEDTIME [facility] Last Admin: 08/16/24 20:42 Dose: 25 mg Documented By: YOLANDA Piperacillin Sod/Tazobactam (Sod 3.375 gm/ Sodium Chloride) 50 mls @ 100 mls/hr IV Q6H [facility] Last Infusion: 08/17/24 02:39 Dose: Infused Documented By: YOLANDA Lactated Ringer's (Lr) 1,000 mls @ 80 mls/hr IVCONT .[id number] [facility] Last Admin: 08/17/24 05:57 Dose: 80 mls/hr Documented By: YOLANDA Ketorolac Tromethamine (Ketorolac Tromethamine 30 Mg/Ml Vial) 30 mg IVPUSH Q6H [facility] Last Admin: 08/17/24 07:45 Dose: 30 mg Documented By: MANOJ Lactulose (Lactulose 20 Gm/30 Ml Solution) 20 gm PO DAILY PRN PRN Reason: Constipation Lamotrigine (Lamotrigine 100 Mg Tablet) 200 mg PO DAILY [facility] Last Admin: 08/16/24 10:56 Dose: 200 mg Documented By: MANOJ Lamotrigine (Lamotrigine 25 Mg Tablet) 50 mg PO BEDTIME [facility] Last Admin: 08/16/24 20:42 Dose: 50 mg Documented By: YOLANDA Magnesium Oxide (Magnesium Oxide 400 Mg Tablet) 400 mg PO DAILY [facility] Last Admin: 08/16/24 10:56 Dose: 400 mg Documented By: MANOJ Melatonin (Melatonin 3 Mg Tablet) 6 mg PO BEDTIME PRN PRN Reason: Insomnia Mesalamine (Mesalamine 0.375 Gm Cap.Er.24h) 1.5 gm PO DAILY [facility] Last Admin: 08/16/24 10:56 Dose: 1.5 gm Documented By: MANOJ Mirabegron (Mirabegron 50 Mg Tab.Er.24h) 50 mg PO DAILY [facility] Last Admin: 08/16/24 10:56 Dose: 50 mg Documented By: MANOJ Omeprazole (Omeprazole 20 Mg Capsule.Dr) 20 mg PO BID@0630,1630 [facility] Last Admin: 08/17/24 05:55 Dose: 20 mg Documented By: YOLANDA Ondansetron HCl (Ondansetron Hcl 4 Mg/2 Ml Vial) 4 mg IVPUSH Q6H PRN PRN Reason: Nausea and Vomiting Last Admin: 08/16/24 08:33 Dose: 4 mg Documented By: MANOJ Oxycodone HCl (Oxycodone Hcl Immed Release 5 Mg Tablet) 10 mg PO Q4H PRN PRN Reason: Pain, Moderate(Pain Scale 4-6) Last Admin: 08/12/24 22:57 Dose: 10 mg Documented By: YOLANDA Sodium Chloride (0.9 % Sodium Chloride Flush 3 Ml Syringe) 3 ml IVFLUSH [facility] Last Admin: 08/17/24 07:45 Dose: 3 ml Documented By: MANOJ Tramadol HCl (Tramadol Hcl 50 Mg Tablet) 50 mg PO Q4H PRN PRN Reason: Pain, Moderate(Pain Scale 4-6) Last Admin: 08/16/24 17:39 Dose: 50 mg Documented By: MANOJ Valacyclovir HCl (Valacyclovir Hcl 500 Mg Tablet) 500 mg PO DAILY [facility] Last Admin: 08/16/24 10:56 Dose: 500 mg Documented By: MANOJ Vitamin D (Cholecalciferol (Vitamin D3) 25 Mcg Tablet) 125 mcg PO DAILY [facility] Last Admin: 08/16/24 10:56 Dose: 125 mcg Documented By: MANOJ Vortioxetine (Vortioxetine Hydrobromide 20 Mg Tablet) 20 mg PO DAILY [facility] Last Admin: 08/16/24 10:56 Dose: 20 mg Documented By: MANOJ Labs 08/16/24 08:41 08/16/24 08:41 Labs: Laboratory Results - last 24 hr 08/16/24 08/16/24 08/16/24 08:41 09:17 12:14 MCV 81.2 MCH 27.8 MCHC 34.2 RDW 13.8 Plt Count 331 MPV 10.0 Immature Gran % (Auto) 0.5 H Neut % (Auto) 70.5 Lymph % (Auto) 16.3 L [place] % (Auto) 6.7 Eos % (Auto) 5.7 H Baso % (Auto) 0.3 Lymph # (Auto) 1.9 [place] # (Auto) 0.8 Eos # (Auto) 0.7 H Baso # (Auto) 0.0 Abs Immat Gran (auto) 0.06 H Absolute Neuts (auto) 8.3 Absolute Nucleated RBC 0.000 Nucleated RBC % (auto) 0.0 Anion Gap 12 Estim Creat Clear Calc 127.7 Estimated GFR > 60 Random Glucose 106 Lactic Acid 0.9 Calcium 8.4 Urine Color Yellow Urine Appearance Clear Urine pH 8.5 Ur Specific [place] 1.010 Urine Protein Negative Urine Glucose (UA) Negative Urine Ketones Trace Urine Blood Negative Urine Nitrite Negative Ur Leukocyte Esterase Negative Urine RBC 0-2 Urine WBC 0-5 Ur Squamous Epith Cells 0-2 Urine Bacteria None Seen Hyaline Casts 0-2 Influenza Type A (PCR) Influenza Type B (PCR) RSV RNA Qual (PCR) SARS-CoV-2 RNA (RT-PCR) 08/16/24 12:37 MCV MCH MCHC RDW Plt Count MPV Immature Gran % (Auto) Neut % (Auto) Lymph % (Auto) [place] % (Auto) Eos % (Auto) Baso % (Auto) Lymph # (Auto) [place] # (Auto) Eos # (Auto) Baso # (Auto) Abs Immat Gran (auto) Absolute Neuts (auto) Absolute Nucleated RBC Nucleated RBC % (auto) Anion Gap Estim Creat Clear Calc Estimated GFR Random Glucose Lactic Acid Calcium Urine Color Urine Appearance Urine pH Ur Specific [place] Urine Protein Urine Glucose (UA) Urine Ketones Urine Blood Urine Nitrite Ur Leukocyte Esterase Urine RBC Urine WBC Ur Squamous Epith Cells Urine Bacteria Hyaline Casts Influenza Type A (PCR) NEGATIVE Influenza Type B (PCR) NEGATIVE RSV RNA Qual (PCR) NEGATIVE SARS-CoV-2 RNA (RT-PCR) NEGATIVE Microbiology Microbiology Results: Microbiology 08/16/24 15:24 Gram Stain - Final Abdomen - Abscess Routine Culture - Preliminary Culture in progress. Assessment and Plan (1) Fever: Status: Acute Plan Pt is a 43-year-old female with a PMH significant for right occipital neuralgia, FND, IBS, hx of epidural abscess L2-L5, GERD, anxiety, and depression admitted to the hospital for elective sigmoid colostomy after long hx of constipation, diarrhea, and incontinence. Hospitalist consult for postop fever. Fever Pt spiked fever 103.2 yesterday, has been afebrile since Unclear etiology: UA negative, CXR negative, tested negative for flu, RSV, COVID CT of abd found probable developing abscess with an anterior midnight soft tissues, negative for intraperitoneal abscess or obstruction Fluid collection drained at bedside by General surgery Lactic acid WNL at 0.9, obtained blood cultures x2 Continue empiric treatment with Zosyn, day 2 (started 08/16/2024) Follow blood and wound specimen cultures Discontinue abx if cultures negative and pt continues to be asymptomatic Will continue to follow along with you while awaiting culture results. Quality Stroke Does the patient have a stroke diagnosis?: No VTE Prior VTE?: No VTE Risk Level:: Medical - low VTE Device Contraindication: N/A - Device Ordered VTE Drug Contraindication: Treatment Not Indicated
[2024-08-17] MEDS: Famotidine 20 MG TABLET PO ×2 (09:24→20:13)
[2024-08-17] MEDS: Cholecalciferol (Vitamin D3) 25 MCG TABLET 125 MCG PO (09:24)
[2024-08-17] MEDS: Vortioxetine Hydrobromide 20 MG TABLET PO (09:24)
[2024-08-17] MEDS: MESALAMINE 0.375 GM 1.5 GM PO (09:24)
[2024-08-17] MEDS: lamoTRIgine 100 MG TABLET 200 MG PO (09:25)
[2024-08-17] MEDS: valACYclovir HCL 500 MG TABLET PO (09:25)
[2024-08-17] MEDS: Docusate Sodium 100 MG CAPSULE PO ×2 (09:25→20:13)
[2024-08-17] MEDS: Magnesium Oxide 400 MG TABLET PO (09:25)
--- NOTE | 2024-08-17 09:30 | P.PNGS_ITS ---
Subjective Subjective Date of Service: 08/18/24 Interval history: Feels much better this morning No further fever since yesterday morning Passing more flatus via the stoma but no stool yet Tolerating diet well and says oral intake is much improved Physical Exam 2 Vital Signs: Vital Signs: Last Vital Signs Temp 97.9 F 08/17/24 07:38 Pulse 82 08/17/24 07:38 Resp 18 08/17/24 07:38 BP 105/57 L 08/17/24 07:38 Pulse Ox 98 08/17/24 07:38 O2 Del Method Room Air 08/17/24 07:38 O2 Flow Rate 2 08/12/24 16:34 BMI result Body Mass Index 42.6 Const: Other: In much better mood General: comfortable and no acute distress Resp: Effort & Inspection: normal respiratory effort Cardio: Rate: regular rate GI: Other: Incision clean, small opening on the lower aspect dry, no pus Stoma viable looking, some air but no stool Palpation (GI): Soft to palpation Objective Data Active Medications Acetaminophen (Acetaminophen 325 Mg Tablet) 650 mg PO Q4H PRN PRN Reason: Pain, Mild 1-3,fever,headache Last Admin: 08/17/24 01:26 Dose: 650 mg Documented By: YOLANDA Calcium Carbonate (Calcium Carbonate 750 Mg Tab.Chew) 750 mg PO Q4H PRN PRN Reason: Heartburn Last Admin: 08/13/24 05:05 Dose: 750 mg Documented By: YOLANDA Clonazepam (Clonazepam 1 Mg Tablet) 1 mg PO TID PRN PRN Reason: Anxiety Last Admin: 08/13/24 08:27 Dose: 1 mg Documented By: CARMELO Docusate Sodium (Docusate Sodium 100 Mg Capsule) 100 mg PO BID [facility] Last Admin: 08/17/24 09:25 Dose: 100 mg Documented By: MANOJ Famotidine (Famotidine 20 Mg Tablet) 20 mg PO BID [facility] Last Admin: 08/17/24 09:24 Dose: 20 mg Documented By: MANOJ Fluticasone Propionate (Fluticasone Propionate Nasal 16 Gm [place]) 2 spray NOSTRIL-B DAILY PRN PRN Reason: Allergy Symptoms Hydromorphone HCl (Hydromorphone Hcl 1 Mg/Ml Syringe) 1 mg IVPUSH Q4H PRN; Protocol PRN Reason: Pain, Severe (Pain Scale 7-10) Last Admin: 08/17/24 03:42 Dose: 1 mg Documented By: YOLANDA Hydroxyzine HCl (Hydroxyzine Hcl 25 Mg Tablet) 25 mg PO BEDTIME [facility] Last Admin: 08/16/24 20:42 Dose: 25 mg Documented By: YOLANDA Piperacillin Sod/Tazobactam (Sod 3.375 gm/ Sodium Chloride) 50 mls @ 100 mls/hr IV Q6H [facility] Last Admin: 08/17/24 09:25 Dose: 100 mls/hr Documented By: MANOJ Lactated Ringer's (Lr) 1,000 mls @ 80 mls/hr IVCONT .[id number] [facility] Last Admin: 08/17/24 05:57 Dose: 80 mls/hr Documented By: YOLANDA Ketorolac Tromethamine (Ketorolac Tromethamine 30 Mg/Ml Vial) 30 mg IVPUSH Q6H [facility] Last Admin: 08/17/24 07:45 Dose: 30 mg Documented By: MANOJ Lactulose (Lactulose 20 Gm/30 Ml Solution) 20 gm PO DAILY PRN PRN Reason: Constipation Lamotrigine (Lamotrigine 100 Mg Tablet) 200 mg PO DAILY [facility] Last Admin: 08/17/24 09:25 Dose: 200 mg Documented By: MANOJ Lamotrigine (Lamotrigine 25 Mg Tablet) 50 mg PO BEDTIME [facility] Last Admin: 08/16/24 20:42 Dose: 50 mg Documented By: YOLANDA Magnesium Oxide (Magnesium Oxide 400 Mg Tablet) 400 mg PO DAILY [facility] Last Admin: 08/17/24 09:25 Dose: 400 mg Documented By: MANOJ Melatonin (Melatonin 3 Mg Tablet) 6 mg PO BEDTIME PRN PRN Reason: Insomnia Mesalamine (Mesalamine 0.375 Gm Cap.Er.24h) 1.5 gm PO DAILY [facility] Last Admin: 08/17/24 09:24 Dose: 1.5 gm Documented By: MANOJ Mirabegron (Mirabegron 50 Mg Tab.Er.24h) 50 mg PO DAILY [facility] Last Admin: 08/16/24 10:56 Dose: 50 mg Documented By: MANOJ Omeprazole (Omeprazole 20 Mg Capsule.Dr) 20 mg PO BID@0630,1630 [facility] Last Admin: 08/17/24 05:55 Dose: 20 mg Documented By: YOLANDA Ondansetron HCl (Ondansetron Hcl 4 Mg/2 Ml Vial) 4 mg IVPUSH Q6H PRN PRN Reason: Nausea and Vomiting Last Admin: 08/16/24 08:33 Dose: 4 mg Documented By: MANOJ Oxycodone HCl (Oxycodone Hcl Immed Release 5 Mg Tablet) 10 mg PO Q4H PRN PRN Reason: Pain, Moderate(Pain Scale 4-6) Last Admin: 08/12/24 22:57 Dose: 10 mg Documented By: YOLANDA Sodium Chloride (0.9 % Sodium Chloride Flush 3 Ml Syringe) 3 ml IVFLUSH QSHIFT [facility] Last Admin: 08/17/24 07:45 Dose: 3 ml Documented By: MANOJ Tramadol HCl (Tramadol Hcl 50 Mg Tablet) 50 mg PO Q4H PRN PRN Reason: Pain, Moderate(Pain Scale 4-6) Last Admin: 08/16/24 17:39 Dose: 50 mg Documented By: MANOJ Valacyclovir HCl (Valacyclovir Hcl 500 Mg Tablet) 500 mg PO DAILY [facility] Last Admin: 08/17/24 09:25 Dose: 500 mg Documented By: MANOJ Vitamin D (Cholecalciferol (Vitamin D3) 25 Mcg Tablet) 125 mcg PO DAILY [facility] Last Admin: 08/17/24 09:24 Dose: 125 mcg Documented By: MANOJ Vortioxetine (Vortioxetine Hydrobromide 20 Mg Tablet) 20 mg PO DAILY [facility] Last Admin: 08/17/24 09:24 Dose: 20 mg Documented By: MANOJ Labs 08/18/24 06:10 08/18/24 06:10 Labs: Laboratory Results - last 24 hr 08/16/24 08/16/24 08/16/24 09:17 12:14 12:37 Lactic Acid 0.9 Urine Color Yellow Urine Appearance Clear Urine pH 8.5 Ur Specific [place] 1.010 Urine Protein Negative Urine Glucose (UA) Negative Urine Ketones Trace Urine Blood Negative Urine Nitrite Negative Ur Leukocyte Esterase Negative Urine RBC 0-2 Urine WBC 0-5 Ur Squamous Epith Cells 0-2 Urine Bacteria None Seen Hyaline Casts 0-2 Influenza Type A (PCR) NEGATIVE Influenza Type B (PCR) NEGATIVE RSV RNA Qual (PCR) NEGATIVE SARS-CoV-2 RNA (RT-PCR) NEGATIVE Microbiology Microbiology Results: Microbiology 08/16/24 15:24 Gram Stain - Final Abdomen - Abscess Routine Culture - Preliminary Culture in progress. Procedures Date of Service Date of Service: 08/18/24 Progress Note: A&P Assessment and plan (1) S/P colostomy: Status: Acute Assessment and Plan: Fluid collection under the incision in the thick subcutaneous layer drained yesterday - appears seromatous; cultures pending No further fever Passing good amounts of flatus but no stool yet CAT scan yesterday does not show obstruction Continue to ambulate Await passage of stool Clinically looks much better and more comfortable today Appreciate hospitalist input Time Spent With Patient Time: Total time managing care of this patient today ____ minutes. Quality Stroke Does the patient have a stroke diagnosis?: No VTE Prior VTE?: No VTE Risk Level:: Medical - low VTE Device Contraindication: N/A - Device Ordered VTE Drug Contraindication: Treatment Not Indicated
[2024-08-17] MEDS: Mirabegron 50 MG TAB.ER.24H PO (09:42)
--- NOTE | 2024-08-17 13:46 | PM.EVENT ---
Event Note Date of Service: 08/17/24 Event Note: Seen on afternoon rounds Continues to do well Subjectively feeling well overall Tolerating diet Passing large amounts of flatus via the stoma Still no stool via the stoma Abdomen remained soft and benign We will add MiraLax Ambulate at bedside Time Spent With Patient Time: Total time managing care of this patient today ____ minutes.
[2024-08-17] MEDS: polyethylene glycoL 3350 17 GM POWD.PACK PO (14:25)
[2024-08-17] MEDS: traMADoL HCL 50 MG TABLET PO (14:29)
[2024-08-17 15:08] VITALS: BP 125/62; PULSE 94; RESP 18; TEMP 36.3; O2SAT 97
[2024-08-17 19:28] VITALS: BP 119/75; PULSE 100; RESP 18; TEMP 36.5; O2SAT 97
[2024-08-17] MEDS: lamoTRIgine 25 MG TABLET 50 MG PO (20:13)
[2024-08-17] MEDS: hydrOXYzine HCL 25 MG TABLET PO (20:13)
[2024-08-18] MEDS: Ketorolac Tromethamine 30 MG/ML VIAL IVPUSH (02:37)
[2024-08-18] MEDS: Piperacillin Sodium/Tazobactam 3.375 GM in 0.9 % Sodium Chloride 50 ML IV ×4 (03:17→20:04)
[2024-08-18 04:00] VITALS: BP 112/63; PULSE 81; RESP 16; TEMP 36; O2SAT 96
[2024-08-18] MEDS: Omeprazole 20 MG CAPSULE.DR PO ×2 (06:09→17:01)
[2024-08-18 06:14] LABS: MANUAL DIFF FLAG NO
[2024-08-18] MEDS: traMADoL HCL 50 MG TABLET PO ×2 (06:14→20:19)
[2024-08-18 06:42] LABS: Alanine Aminotransferase 15 U/L (0-31); Albumin Level 3.3 g/dL (3.5-5.0); Alkaline Phosphatase 112 U/L (39-117); Anion Gap 13 (12-20); Aspartate Amino Transferase 17 U/L (5-31); Bilirubin Direct 0.1 mg/dL (0.0-0.5); Bilirubin Total 0.3 mg/dL (0.0-1.0); Blood Urea Nitrogen 5 mg/dL (9-16); Calcium 8.8 mg/dL (8.4-10.2); Carbon Dioxide 24 mmol/L (22-29); Chloride 105 mmol/L (96-108); Creatinine Clr Calc Pharmacy 131.5; Estimated Glomerular Filt Rate > 60; Glucose Random 90 mg/dL (60-115); Potassium 3.7 mmol/L (3.3-5.1); Sodium 138 mmol/L (135-145); Total Protein 6.6 g/dL (6.5-8.0)
[2024-08-18 06:54] LABS: Basophils Percent Auto 0.4 % (0-2); Eosinophils Absolute Auto 0.9 X10*3/uL (0.0-0.4); Eosinophils Percent Auto 10.4 % (0-4); Hematocrit 35.7 % (37.0-47.0); Hemoglobin 11.7 g/dl (12.0-16.0); Imm Gran Abs Auto 0.03 X10*3/uL (0.00-0.03); Imm Gran Pct Auto 0.4 % (0.0-0.4); Lymphocytes Absolute Auto 2.9 X10*3/uL (1.2-4.9); Lymphocytes Percent Auto 34.7 % (20-40); Mean Corpuscular HGB Conc 32.8 g/dl (31.0-35.0); Mean Corpuscular Volume 82.4 fL (80.0-98.0); Mean Platelet Volume 9.7 fL (9.4-12.3); Monocytes Absolute Auto 0.5 X10*3/uL (0.1-1.2); Monocytes Percent Auto 6.2 % (2-11); Neutrophils Absolute Auto 4.1 x10*3/uL (2.0-8.3); Neutrophils Percent Auto 47.9 % (45-73); Platelet Count 383 X10*3/uL (160-400); Red Blood Count 4.33 X10*6/uL (4.20-5.50); Red Cell Distribution Width 13.9 % (11.0-16.0); White Blood Count 8.5 X10*3/uL (4.8-10.8)
[2024-08-18 07:37] VITALS: BP 127/61; PULSE 81; RESP 16; TEMP 36.3; O2SAT 95
--- NOTE | 2024-08-18 09:00 | PC.NURSE ---
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 Pt states she was upset that a male answered her call morales, jig fitter states the Emergency call was going off and a male entered the room to assess. Pt stated she requested a double dose of narcotics, Tramadol and Diludid together to help her sleep. Upset the RN would not give her multiple narcotics at the same time. Educated that this is not normal practice to double dose narcotics per EMAR. Pt does not understand this, states if she asks for narcotics she should be able to get whatever she wants. Pt very emotional not wanting men in her room, however it is okay for Male Providers to enter the room. Sign outside the room and on the nurses board states NO MALES Pt unable to recall the name of the male staff member that entered the room to answer the alarm.
[2024-08-18] MEDS: 0.9 % Sodium Chloride Flush 3 ML SYRINGE IVFLUSH ×3 (09:26→22:10)
--- NOTE | 2024-08-18 09:29 | PM.PNGS ---
Subjective Subjective Date of Service: 08/18/24 <Faraz Diez PA-C - Last Filed: 08/18/24 12:30> 08/19/24 <Jesus Allen MD - Last Filed: 08/19/24 10:21> Interval history: Patient doing okay today. States that she continues to have some abdominal pain, nausea and bloating when eating, she could not eat most of her dinner last night. She has been trying to eat small meals but continues to feel pain and nausea. She reports continued flatus production through the ostomy site, no stools yet. She has been ambulating throughout the floor. Denies fever, chills. She continues to have some pain in the area of the midline incision. <DAVID Babb Last Filed: 08/18/24 12:30> Physical Exam Vital Signs: Vital Signs: Last Vital Signs Temp 97.4 F 08/18/24 07:37 Pulse 81 08/18/24 07:37 Resp 16 08/18/24 07:37 BP 127/61 08/18/24 07:37 Pulse Ox 95 08/18/24 07:37 O2 Del Method Room Air 08/18/24 07:37 O2 Flow Rate 2 08/12/24 16:34 BMI result Body Mass Index 42.6 <DAVID Babb Last Filed: 08/18/24 12:30> Const: General: comfortable and no acute distress <DAVID Babb Last Filed: 08/18/24 12:30> Orientation/consciousness: patient oriented x3 <DAVID Babb Last Filed: 08/18/24 12:30> Resp: Effort & Inspection: normal respiratory effort and able to speak in complete sentences <DAVID Babb Last Filed: 08/18/24 12:30> GI: Other: Ostomy present, viable. Scant sanguinous fluid in the bag Incision sites look clean dry and intact. No surrounding erythema, I was unable to appreciate any further fluid collection <DAVID Babb Last Filed: 08/18/24 12:30> Palpation (GI): Soft to palpation and Tenderness to palpation present (GI) (generalized tenderness, focal point around midline incision) <DAVID Babb Last Filed: 08/18/24 12:30> Neuro: General: patient oriented x3 <Faraz Diez PA-C - Last Filed: 08/18/24 12:30> Objective Data Active Medications Acetaminophen (Acetaminophen 325 Mg Tablet) 650 mg PO Q4H PRN PRN Reason: Pain, Mild 1-3,fever,headache Last Admin: 08/17/24 01:26 Dose: 650 mg Documented By: YOLANDA Calcium Carbonate (Calcium Carbonate 750 Mg Tab.Chew) 750 mg PO Q4H PRN PRN Reason: Heartburn Last Admin: 08/13/24 05:05 Dose: 750 mg Documented By: YOLANDA Docusate Sodium (Docusate Sodium 100 Mg Capsule) 100 mg PO BID [facility] Last Admin: 08/17/24 20:13 Dose: 100 mg Documented By: ABDELRAHMAN Famotidine (Famotidine 20 Mg Tablet) 20 mg PO BID [facility] Last Admin: 08/17/24 20:13 Dose: 20 mg Documented By: ABDELRAHMAN Fluticasone Propionate (Fluticasone Propionate Nasal 16 Gm [place]) 2 spray NOSTRIL-B DAILY PRN PRN Reason: Allergy Symptoms Hydroxyzine HCl (Hydroxyzine Hcl 25 Mg Tablet) 25 mg PO BEDTIME [facility] Last Admin: 08/17/24 20:13 Dose: 25 mg Documented By: ABDELRAHMAN Piperacillin Sod/Tazobactam (Sod 3.375 gm/ Sodium Chloride) 50 mls @ 100 mls/hr IV Q6H [facility] Last Infusion: 08/18/24 04:24 Dose: Infused Documented By: CASEY Lactulose (Lactulose 20 Gm/30 Ml Solution) 20 gm PO DAILY PRN PRN Reason: Constipation Lamotrigine (Lamotrigine 100 Mg Tablet) 200 mg PO DAILY [facility] Last Admin: 08/17/24 09:25 Dose: 200 mg Documented By: MANOJ Lamotrigine (Lamotrigine 25 Mg Tablet) 50 mg PO BEDTIME [facility] Last Admin: 08/17/24 20:13 Dose: 50 mg Documented By: ABDELRAHMAN Magnesium Oxide (Magnesium Oxide 400 Mg Tablet) 400 mg PO DAILY [facility] Last Admin: 08/17/24 09:25 Dose: 400 mg Documented By: MANOJ Melatonin (Melatonin 3 Mg Tablet) 6 mg PO BEDTIME PRN PRN Reason: Insomnia Mesalamine (Mesalamine 0.375 Gm Cap.Er.24h) 1.5 gm PO DAILY [facility] Last Admin: 08/17/24 09:24 Dose: 1.5 gm Documented By: MANOJ Mirabegron (Mirabegron 50 Mg Tab.Er.24h) 50 mg PO DAILY [facility] Last Admin: 08/17/24 09:42 Dose: 50 mg Documented By: MANOJ Omeprazole (Omeprazole 20 Mg Capsule.Dr) 20 mg PO BID@0630,1630 [facility] Last Admin: 08/18/24 06:09 Dose: 20 mg Documented By: CASEY Ondansetron HCl (Ondansetron Hcl 4 Mg/2 Ml Vial) 4 mg IVPUSH Q6H PRN PRN Reason: Nausea and Vomiting Last Admin: 08/16/24 08:33 Dose: 4 mg Documented By: MANOJ Polyethylene Glycol (Polyethylene Glycol 3350 17 Gm Powd.Pack) 17 gm PO DAILY [facility] Last Admin: 08/17/24 14:25 Dose: 17 gm Documented By: MANOJ Sodium Chloride (0.9 % Sodium Chloride Flush 3 Ml Syringe) [facility] Last Admin: 08/17/24 23:46 Dose: 3 ml Documented By: CASEY Valacyclovir HCl (Valacyclovir Hcl 500 Mg Tablet) 500 mg PO DAILY [facility] Last Admin: 08/17/24 09:25 Dose: 500 mg Documented By: MANOJ Vitamin D (Cholecalciferol (Vitamin D3) 25 Mcg Tablet) 125 mcg PO DAILY [facility] Last Admin: 08/17/24 09:24 Dose: 125 mcg Documented By: MANOJ Vortioxetine (Vortioxetine Hydrobromide 20 Mg Tablet) 20 mg PO DAILY [facility] Last Admin: 08/17/24 09:24 Dose: 20 mg Documented By: MANOJ <Faraz Diez PA-C - Last Filed: 08/18/24 12:30> Labs CBC & Chem 7: 08/18/24 06:10 08/18/24 06:10 <Faraz Diez PA-C - Last Filed: 08/18/24 12:30> Labs: Laboratory Results - last 24 hr 08/18/24 06:10 MCV 82.4 MCH 27.0 MCHC 32.8 RDW 13.9 Plt Count 383 MPV 9.7 Immature Gran % (Auto) 0.4 Neut % (Auto) 47.9 Lymph % (Auto) 34.7 [place] % (Auto) 6.2 Eos % (Auto) 10.4 H Baso % (Auto) 0.4 Lymph # (Auto) 2.9 [place] # (Auto) 0.5 Eos # (Auto) 0.9 H Baso # (Auto) 0.0 Abs Immat Gran (auto) 0.03 Absolute Neuts (auto) 4.1 Absolute Nucleated RBC 0.000 Nucleated RBC % (auto) 0.0 Anion Gap 13 Estim Creat Clear Calc 131.5 Estimated GFR > 60 Random Glucose 90 Calcium 8.8 Total Bilirubin 0.3 Direct Bilirubin 0.1 AST 17 ALT 15 Alkaline Phosphatase 112 Total Protein 6.6 Albumin 3.3 L <Faraz Diez PA-C - Last Filed: 08/18/24 12:30> Microbiology Microbiology Results: Microbiology 08/16/24 15:24 Gram Stain - Final Abdomen - Abscess Routine Culture - Preliminary Gram positive cocci 08/16/24 12:14 Blood Culture - Preliminary Blood - Venous No growth after 24 hours. 08/16/24 12:14 Blood Culture - Preliminary Blood - Venous No growth after 24 hours. <Faraz Diez PA-C - Last Filed: 08/18/24 12:30> Procedures Date of Service Date of Service: 08/18/24 <Faraz Diez PA-C - Last Filed: 08/18/24 12:30> 08/19/24 <Jesus Allen MD - Last Filed: 08/19/24 10:21> Progress Note: A&P Assessment and plan (1) S/P colostomy: Status: Acute <Faraz Diez PA-C - Last Filed: 08/18/24 12:30> Assessment and Plan: Continues to have passed good amounts of flatus However, no stool yet She says she occasionally feels bloated with food but otherwise tolerating CAT scan of the weekend does not reveal obstruction Await for return of GI function She may have component of motility issue with the colon; may have to consider motility studies including marker studies down the line Clinically looks well otherwise Stoma viable Encouraged ambulation Seen and examined independently <Jesus Allen MD - Last Filed: 08/19/24 10:21> Assessment and Plan: 44-year-old female POD 6, s/p colostomy creation. Patient doing okay, continued to have abdominal pain, bloating, early satiety with food. Trying to eat small meals but continues to have some pain and nausea. Ostomy site continues to output flatus, no bowel movement at this time. Patient remains on MiraLax for bowel regimen. She has not had any further fevers, remains on IV antibiotics. Denies shortness of breath, fever/chills. Continues to have incisional site pain. Abdominal exam significant for generalized tenderness throughout the abdomen, with a focal point near the ostomy site and at the midline incision. The midline incision where the seroma was previously incised and drained shows no evidence of further seroma, dressing had very small amounts of dried serosanguineous fluid. There was no surrounding erythema or warmth or purulent discharge. Additionally I reviewed a.m. labs which show improvement in white count this morning. Routine culture of seroma significant for 1+ Gram-positive cocci Continue pain regimen Continue bowel regimen Continue antibiotics Recommended ambulation/spirometry <Faraz Diez PA-C - Last Filed: 08/18/24 12:30> Time Spent With Patient Time: Total time managing care of this patient today ____ minutes. <Faraz Diez PA-C - Last Filed: 08/18/24 12:30> Quality Stroke Does the patient have a stroke diagnosis?: No <Faraz Diez PA-C - Last Filed: 08/18/24 12:30> VTE Prior VTE?: No <Faraz Diez PA-C - Last Filed: 08/18/24 12:30> VTE Risk Level:: Medical - low <Faraz Diez PA-C - Last Filed: 08/18/24 12:30> VTE Device Contraindication: N/A - Device Ordered <Fraaz Diez PA-C - Last Filed: 08/18/24 12:30> VTE Drug Contraindication: Treatment Not Indicated <Faraz Diez PA-C - Last Filed: 08/18/24 12:30>
[2024-08-18] MEDS: Magnesium Oxide 400 MG TABLET PO (09:32)
[2024-08-18] MEDS: Mirabegron 50 MG TAB.ER.24H PO (09:32)
[2024-08-18] MEDS: valACYclovir HCL 500 MG TABLET PO (09:32)
[2024-08-18] MEDS: Famotidine 20 MG TABLET PO ×2 (09:32→20:04)
[2024-08-18] MEDS: Vortioxetine Hydrobromide 20 MG TABLET PO (09:32)
[2024-08-18] MEDS: Docusate Sodium 100 MG CAPSULE PO ×2 (09:32→20:04)
[2024-08-18] MEDS: lamoTRIgine 100 MG TABLET 200 MG PO (09:32)
[2024-08-18] MEDS: polyethylene glycoL 3350 17 GM POWD.PACK PO (09:33)
[2024-08-18] MEDS: MESALAMINE 0.375 GM 1.5 GM PO (09:33)
[2024-08-18 10:16] LABS: C Reactive Protein 14.37 mg/dL (< or = 0.50)
[2024-08-18] MEDS: Cholecalciferol (Vitamin D3) 25 MCG TABLET 125 MCG PO (10:21)
[2024-08-18] MEDS: HYDROmorphone HCl 0.5 MG/0.5 ML SYRINGE IVPUSH ×2 (10:21→23:00)
[2024-08-18 10:46] LABS: Erythrocyte Sedimentation Rate 72 MM/HR (0-20)
[2024-08-18] MEDS: Ketorolac Tromethamine 15 MG/ML VIAL IVPUSH ×3 (11:26→22:09)
--- NOTE | 2024-08-18 11:29 | MHC.CM.PN ---
EMR REVIEWED AND PER MD ROUNDS, PT IS NOT MEDICALLY CLEARED FOR DC (AWAITING BOWEL FUNCTION, PAIN MANAGEMENT) [facility] FOLLOWING AND UDATED. CM WILL CONTINUE TO FOLLOW FOR ANY CHANGE TO DC PLANS/NEEDS.
[2024-08-18] MEDS: ondansetron HCL 4 MG/2 ML VIAL IVPUSH (13:27)
[2024-08-18 15:47] VITALS: BP 113/63; PULSE 84; RESP 18; TEMP 36.6; O2SAT 96
--- NOTE | 2024-08-18 18:57 | PM.EVENT ---
Event Note Date of Service: 08/19/24 Event Note: Seen on late afternoon rounds She says she vomited earlier after lunch Feels much better now Denies significant pain Passing flatus well via the bag Still no stool Abdomen remains very soft and benign We will add erythromycin as a promotility agent Encouraged ambulation at bedside Time Spent With Patient Time: Total time managing care of this patient today ____ minutes.
[2024-08-18 19:19] VITALS: BP 125/58; PULSE 99; RESP 18; TEMP 36.6; O2SAT 98
[2024-08-18] MEDS: lamoTRIgine 25 MG TABLET 50 MG PO (20:04)
[2024-08-18] MEDS: hydrOXYzine HCL 25 MG TABLET PO (20:04)
[2024-08-18] MEDS: Erythromycin Base 250 MG TABLET PO (20:04)
[2024-08-19] MEDS: Piperacillin Sodium/Tazobactam 3.375 GM in 0.9 % Sodium Chloride 50 ML IV (03:17)
[2024-08-19 03:24] VITALS: BP 113/60; PULSE 89; RESP 20; TEMP 37.2; O2SAT 95
[2024-08-19] MEDS: Ketorolac Tromethamine 15 MG/ML VIAL IVPUSH ×4 (03:48→20:07)
[2024-08-19] MEDS: Erythromycin Base 250 MG TABLET PO (06:02)
[2024-08-19] MEDS: Omeprazole 20 MG CAPSULE.DR PO ×2 (06:02→15:09)
--- NOTE | 2024-08-19 06:04 | PC.NURSE ---
went to check on patients colostomy bag this morning and she had her first bowel movement.
[2024-08-19 07:21] VITALS: BP 120/60; PULSE 85; RESP 18; TEMP 36.2; O2SAT 97
[2024-08-19] MEDS: Ampicillin Sodium/Sulbactam Na 3 GM in 0.9 % Sodium Chloride 100 ML IV ×3 (08:27→20:11)
[2024-08-19] MEDS: Cholecalciferol (Vitamin D3) 25 MCG TABLET 125 MCG PO (08:28)
[2024-08-19] MEDS: Magnesium Oxide 400 MG TABLET PO (08:29)
[2024-08-19] MEDS: Famotidine 20 MG TABLET PO ×2 (08:29→20:08)
[2024-08-19] MEDS: valACYclovir HCL 500 MG TABLET PO (08:29)
[2024-08-19] MEDS: MESALAMINE 0.375 GM 1.5 GM PO (08:29)
[2024-08-19] MEDS: Mirabegron 50 MG TAB.ER.24H PO (08:29)
[2024-08-19] MEDS: Docusate Sodium 100 MG CAPSULE PO (08:29)
[2024-08-19] MEDS: 0.9 % Sodium Chloride Flush 3 ML SYRINGE IVFLUSH ×3 (08:29→20:13)
[2024-08-19] MEDS: lamoTRIgine 100 MG TABLET 200 MG PO (08:29)
[2024-08-19] MEDS: polyethylene glycoL 3350 17 GM POWD.PACK PO (08:30)
[2024-08-19] MEDS: Vortioxetine Hydrobromide 20 MG TABLET PO (08:30)
--- NOTE | 2024-08-19 09:22 | PM.PNGS ---
Subjective Subjective Date of Service: 08/19/24 <Faraz Diez PA-C - Last Filed: 08/19/24 14:46> 08/19/24 <Jesus Allen MD - Last Filed: 08/19/24 10:21> Patient reports: feels better, still having pain, flatus, bowel movement and vomiting <DAVID Babb Last Filed: 08/19/24 14:46> Interval history: Patient notes some improvement today, had a good night last night. Continues to report generalized abdominal pain, largely localized around the incision sites. She reports she had a moderate size bowel movement in the bag which she changed herself. Reports she has not new formed stool in the ostomy site, continues to pass flatus. She continues to have some nausea and bloating after meals, she has been eating smaller meals. Yesterday she had an episode of vomiting after a meal. She continues to endorse some nausea related to food, plans to continue to try smaller meals. Ambulating throughout the room <Faraz Diez PA-C - Last Filed: 08/19/24 14:46> Physical Exam Vital Signs: Vital Signs: Last Vital Signs Temp 97.1 F 08/19/24 07:21 Pulse 85 08/19/24 07:21 Resp 18 08/19/24 07:21 BP 120/60 08/19/24 07:21 Pulse Ox 97 08/19/24 07:21 O2 Del Method Room Air 08/19/24 07:21 O2 Flow Rate 2 08/12/24 16:34 BMI result Body Mass Index 42.6 <DAVID Babb Last Filed: 08/19/24 14:46> Const: General: comfortable and no acute distress <DAVID Babb Last Filed: 08/19/24 14:46> Orientation/consciousness: patient oriented x3 <DAVID Babb Last Filed: 08/19/24 14:46> Resp: Effort & Inspection: normal respiratory effort and able to speak in complete sentences <DAVID Babb Last Filed: 08/19/24 14:46> GI: Other: Incision site intact, clean and dry. No surrounding erythema, no discharge, no evidence of further fluid collection <DAVID Babb Last Filed: 08/19/24 14:46> Inspection: No distended <Faraz Diez PA-C - Last Filed: 08/19/24 14:46> Palpation (GI): Soft to palpation, not firm, Tenderness to palpation present (GI) (Generalized incisional site tenderness), no guarding and not rigid <Faraz Diez PA-C - Last Filed: 08/19/24 14:46> Percussion: Yes normal to percussion <Faraz Diez PA-C - Last Filed: 08/19/24 14:46> Neuro: General: patient oriented x3 <DAVID Babb Last Filed: 08/19/24 14:46> Objective Data Active Medications Acetaminophen (Acetaminophen 325 Mg Tablet) 650 mg PO Q4H PRN PRN Reason: Pain, Mild 1-3,fever,headache Last Admin: 08/17/24 01:26 Dose: 650 mg Documented By: YOLANDA Calcium Carbonate (Calcium Carbonate 750 Mg Tab.Chew) 750 mg PO Q4H PRN PRN Reason: Heartburn Last Admin: 08/13/24 05:05 Dose: 750 mg Documented By: YOLANDA Clonazepam (Clonazepam 1 Mg Tablet) 1 mg PO TID PRN PRN Reason: Anxiety Docusate Sodium (Docusate Sodium 100 Mg Capsule) 100 mg PO BID [facility] Last Admin: 08/19/24 08:29 Dose: 100 mg Documented By: NICOLE Erythromycin (Erythromycin Base 250 Mg Tablet) 250 mg PO Q12H [facility] Last Admin: 08/19/24 06:02 Dose: 250 mg Documented By: DANIELLE Famotidine (Famotidine 20 Mg Tablet) 20 mg PO BID [facility] Last Admin: 08/19/24 08:29 Dose: 20 mg Documented By: NICOLE Fluticasone Propionate (Fluticasone Propionate Nasal 16 Gm [place]) 2 spray NOSTRIL-B DAILY PRN PRN Reason: Allergy Symptoms Hydromorphone HCl (Hydromorphone Hcl 0.5 Mg/0.5 Ml Syringe) 0.5 mg IVPUSH Q4H PRN; Protocol PRN Reason: Pain, Severe (Pain Scale 7-10) Last Admin: 08/18/24 23:00 Dose: 0.5 mg Documented By: DANIELLE Hydroxyzine HCl (Hydroxyzine Hcl 25 Mg Tablet) 25 mg PO BEDTIME [facility] Last Admin: 08/18/24 20:04 Dose: 25 mg Documented By: DANIELLE Ampicillin Sodium/Sulbactam (Sodium 3 gm/ Sodium Chloride) 100 mls @ 200 mls/hr IV Q6H [facility] Last Infusion: 08/19/24 09:12 Dose: Infused Documented By: NICOLE Ketorolac Tromethamine (Ketorolac Tromethamine 15 Mg/Ml Vial) 15 mg IVPUSH Q6H [facility] Last Admin: 08/19/24 08:28 Dose: 15 mg Documented By: NICOLE Lactulose (Lactulose 20 Gm/30 Ml Solution) 20 gm PO DAILY PRN PRN Reason: Constipation Lamotrigine (Lamotrigine 100 Mg Tablet) 200 mg PO DAILY [facility] Last Admin: 08/19/24 08:29 Dose: 200 mg Documented By: NICOLE Lamotrigine (Lamotrigine 25 Mg Tablet) 50 mg PO BEDTIME [facility] Last Admin: 08/18/24 20:04 Dose: 50 mg Documented By: DANIELLE Magnesium Oxide (Magnesium Oxide 400 Mg Tablet) 400 mg PO DAILY [facility] Last Admin: 08/19/24 08:29 Dose: 400 mg Documented By: NICOLE Melatonin (Melatonin 3 Mg Tablet) 6 mg PO BEDTIME PRN PRN Reason: Insomnia Mesalamine (Mesalamine 0.375 Gm Cap.Er.24h) 1.5 gm PO DAILY [facility] Last Admin: 08/19/24 08:29 Dose: 1.5 gm Documented By: NICOLE Mirabegron (Mirabegron 50 Mg Tab.Er.24h) 50 mg PO DAILY [facility] Last Admin: 08/19/24 08:29 Dose: 50 mg Documented By: NICOLE Omeprazole (Omeprazole 20 Mg Capsule.Dr) 20 mg PO BID@0630,1630 [facility] Last Admin: 08/19/24 06:02 Dose: 20 mg Documented By: DANIELLE Ondansetron HCl (Ondansetron Hcl 4 Mg/2 Ml Vial) 4 mg IVPUSH Q6H PRN PRN Reason: Nausea and Vomiting Last Admin: 08/18/24 13:27 Dose: 4 mg Documented By: JON Polyethylene Glycol (Polyethylene Glycol 3350 17 Gm Powd.Pack) 17 gm PO DAILY [facility] Last Admin: 08/19/24 08:30 Dose: 17 gm Documented By: NICOLE Sodium Chloride (0.9 % Sodium Chloride Flush 3 Ml Syringe) 3 ml IVFLUSH QSHIFT [facility] Last Admin: 08/19/24 08:29 Dose: 3 ml Documented By: NICOLE Tramadol HCl (Tramadol Hcl 50 Mg Tablet) 50 mg PO Q6H PRN PRN Reason: Pain, Moderate(Pain Scale 4-6) Last Admin: 08/18/24 20:19 Dose: 50 mg Documented By: DANIELLE Valacyclovir HCl (Valacyclovir Hcl 500 Mg Tablet) 500 mg PO DAILY [facility] Last Admin: 08/19/24 08:29 Dose: 500 mg Documented By: NICOLE Vitamin D (Cholecalciferol (Vitamin D3) 25 Mcg Tablet) 125 mcg PO DAILY [facility] Last Admin: 08/19/24 08:28 Dose: 125 mcg Documented By: NICOLE Vortioxetine (Vortioxetine Hydrobromide 20 Mg Tablet) 20 mg PO DAILY [facility] Last Admin: 08/19/24 08:30 Dose: 20 mg Documented By: NICOLE <Faraz Diez PA-C - Last Filed: 08/19/24 14:46> Labs CBC & Chem 7: 08/18/24 06:10 08/18/24 06:10 <Faraz Diez PA-C - Last Filed: 08/19/24 14:46> Labs: Laboratory Results - last 24 hr 08/18/24 06:10 ESR 72 H C-Reactive Protein 14.37 H <Faraz Diez PA-C - Last Filed: 08/19/24 14:46> Microbiology Microbiology Results: Microbiology 08/16/24 15:24 Gram Stain - Final Abdomen - Abscess Routine Culture - Final Enterococcus faecalis 08/16/24 12:14 Blood Culture - Preliminary Blood - Venous No growth after 48 hours. 08/16/24 12:14 Blood Culture - Preliminary Blood - Venous No growth after 48 hours. <Faraz Diez PA-C - Last Filed: 08/19/24 14:46> Procedures Date of Service Date of Service: 08/19/24 <Faraz Diez PA-C - Last Filed: 08/19/24 14:46> 08/19/24 <Jesus Allen MD - Last Filed: 08/19/24 10:21> Progress Note: A&P Assessment and plan (1) S/P colostomy: Status: Acute <Faraz Diez PA-C - Last Filed: 08/19/24 14:46> Assessment and Plan: Feels well this morning Has had good amounts of stool from the stoma now Abdomen is soft and benign She says she is planning to be go home tomorrow We will see how she does today Stoma care Looks well overall We will need bowel regimen Seen and examined independently <Jesus Allen MD - Last Filed: 08/19/24 10:21> Assessment and Plan: 43-year-old female POD 7 s/p colostomy creation. Patient is improving today, pain is well controlled, patient requiring less as needed pain medication. Yesterday was given erythromycin as a promotility agent, continues on additional bowel regimen. Ostomy site has begun to produce stool, the stool is firm and solid at this point. Patient is still continuing to experience some nausea and bloating meals. She had 1 episode of vomiting yesterday with food, we will continue to monitor symptoms related to food today, expect that she will begin to tolerate diet better now that the ostomy site is producing stool. Abdominal exam is soft and benign aside from incisional site tenderness. Incision sites are clean dry and intact no concern for infection at this time. Continue antibiotics Continue bowel regimen Ambulation and spirometry Continue regular diet, antiemetics as needed Continue with current pain regimen, try to avoid narcotics as tolerated We will re-evaluate patient this afternoon to see how she is tolerating diet <Faraz Diez PA-C - Last Filed: 08/19/24 14:46> Time Spent With Patient Time: Total time managing care of this patient today ____ minutes. <Faraz Diez PA-C - Last Filed: 08/19/24 14:46> Quality Stroke Does the patient have a stroke diagnosis?: No <Faraz Diez PA-C - Last Filed: 08/19/24 14:46> VTE Prior VTE?: No <Faraz Diez PA-C - Last Filed: 08/19/24 14:46> VTE Risk Level:: Medical - low <Faraz Diez PA-C - Last Filed: 08/19/24 14:46> VTE Device Contraindication: N/A - Device Ordered <Faraz Diez PA-C - Last Filed: 08/19/24 14:46> VTE Drug Contraindication: Treatment Not Indicated <Faraz Diez PA-C - Last Filed: 08/19/24 14:46>
[2024-08-19] MEDS: ondansetron HCL 4 MG/2 ML VIAL IVPUSH ×2 (09:42→15:09)
[2024-08-19] MEDS: Acetaminophen 325 MG TABLET 650 MG PO (11:53)
--- NOTE | 2024-08-19 13:05 | HO.PM.IMPN ---
Subjective Subjective Date of Service: 08/19/24 Interval History: seen and evaluated feels better No fever last 48 hours having stool from stoma Review of Systems Review of Systems: Yes all other systems are reviewed and are negative Physical Exam Vital Signs: Vital Signs: Last Vital Signs Temp 97.1 F 08/19/24 07:21 Pulse 85 08/19/24 07:21 Resp 18 08/19/24 07:21 BP 120/60 08/19/24 07:21 Pulse Ox 97 08/19/24 07:21 O2 Del Method Room Air 08/19/24 07:21 O2 Flow Rate 2 08/12/24 16:34 BMI result Body Mass Index 42.6 Const: Other: Constitutional : interactive, not in distress Cardiovascular : no JVP, no lower extremity edema Respiratory : bilateral chest movement, not in resp distress Gastrointestinal: soft, lax, Non tender, Ostomy in place with formed stool Skin : Warm, Dry Neurological : Alert & oriented , No focal deficit Objective Data Active Medications Acetaminophen (Acetaminophen 325 Mg Tablet) 650 mg PO Q4H PRN PRN Reason: Pain, Mild 1-3,fever,headache Last Admin: 08/19/24 11:53 Dose: 650 mg Documented By: NICOLE Calcium Carbonate (Calcium Carbonate 750 Mg Tab.Chew) 750 mg PO Q4H PRN PRN Reason: Heartburn Last Admin: 08/13/24 05:05 Dose: 750 mg Documented By: YOLANDA Clonazepam (Clonazepam 1 Mg Tablet) 1 mg PO TID PRN PRN Reason: Anxiety Docusate Sodium (Docusate Sodium 100 Mg Capsule) 100 mg PO BID [facility] Last Admin: 08/19/24 08:29 Dose: 100 mg Documented By: NICOLE Erythromycin (Erythromycin Base 250 Mg Tablet) 250 mg PO Q12H [facility] Last Admin: 08/19/24 06:02 Dose: 250 mg Documented By: DANIELLE Famotidine (Famotidine 20 Mg Tablet) 20 mg PO BID [facility] Last Admin: 08/19/24 08:29 Dose: 20 mg Documented By: NICOLE Fluticasone Propionate (Fluticasone Propionate Nasal 16 Gm [place]) 2 spray NOSTRIL-B DAILY PRN PRN Reason: Allergy Symptoms Hydromorphone HCl (Hydromorphone Hcl 0.5 Mg/0.5 Ml Syringe) 0.5 mg IVPUSH Q4H PRN; Protocol PRN Reason: Pain, Severe (Pain Scale 7-10) Last Admin: 08/18/24 23:00 Dose: 0.5 mg Documented By: DANIELLE Hydroxyzine HCl (Hydroxyzine Hcl 25 Mg Tablet) 25 mg PO BEDTIME [facility] Last Admin: 08/18/24 20:04 Dose: 25 mg Documented By: DANIELLE Ampicillin Sodium/Sulbactam (Sodium 3 gm/ Sodium Chloride) 100 mls @ 200 mls/hr IV Q6H [facility] Last Infusion: 08/19/24 09:12 Dose: Infused Documented By: NICOLE Ketorolac Tromethamine (Ketorolac Tromethamine 15 Mg/Ml Vial) 15 mg IVPUSH Q6H [facility] Last Admin: 08/19/24 08:28 Dose: 15 mg Documented By: NICOLE Lactulose (Lactulose 20 Gm/30 Ml Solution) 20 gm PO DAILY PRN PRN Reason: Constipation Lamotrigine (Lamotrigine 100 Mg Tablet) 200 mg PO DAILY [facility] Last Admin: 08/19/24 08:29 Dose: 200 mg Documented By: NICOLE Lamotrigine (Lamotrigine 25 Mg Tablet) 50 mg PO BEDTIME [facility] Last Admin: 08/18/24 20:04 Dose: 50 mg Documented By: DANIELLE Magnesium Oxide (Magnesium Oxide 400 Mg Tablet) 400 mg PO DAILY [facility] Last Admin: 08/19/24 08:29 Dose: 400 mg Documented By: NICOLE Melatonin (Melatonin 3 Mg Tablet) 6 mg PO BEDTIME PRN PRN Reason: Insomnia Mesalamine (Mesalamine 0.375 Gm Cap.Er.24h) 1.5 gm PO DAILY [facility] Last Admin: 08/19/24 08:29 Dose: 1.5 gm Documented By: NICOLE Mirabegron (Mirabegron 50 Mg Tab.Er.24h) 50 mg PO DAILY [facility] Last Admin: 08/19/24 08:29 Dose: 50 mg Documented By: NICOLE Omeprazole (Omeprazole 20 Mg Capsule.Dr) 20 mg PO BID@0630,1630 [facility] Last Admin: 08/19/24 06:02 Dose: 20 mg Documented By: DANIELLE Ondansetron HCl (Ondansetron Hcl 4 Mg/2 Ml Vial) 4 mg IVPUSH Q6H PRN PRN Reason: Nausea and Vomiting Last Admin: 08/19/24 09:42 Dose: 4 mg Documented By: NICOLE Polyethylene Glycol (Polyethylene Glycol 3350 17 Gm Powd.Pack) 17 gm PO DAILY [facility] Last Admin: 08/19/24 08:30 Dose: 17 gm Documented By: NICOLE Sodium Chloride (0.9 % Sodium Chloride Flush 3 Ml Syringe) 3 ml IVFLUSH QSHIFT [facility] Last Admin: 08/19/24 08:29 Dose: 3 ml Documented By: NICOLE Tramadol HCl (Tramadol Hcl 50 Mg Tablet) 50 mg PO Q6H PRN PRN Reason: Pain, Moderate(Pain Scale 4-6) Last Admin: 08/18/24 20:19 Dose: 50 mg Documented By: DANIELLE Valacyclovir HCl (Valacyclovir Hcl 500 Mg Tablet) 500 mg PO DAILY [facility] Last Admin: 08/19/24 08:29 Dose: 500 mg Documented By: NICOLE Vitamin D (Cholecalciferol (Vitamin D3) 25 Mcg Tablet) 125 mcg PO DAILY [facility] Last Admin: 08/19/24 08:28 Dose: 125 mcg Documented By: NICOLE Vortioxetine (Vortioxetine Hydrobromide 20 Mg Tablet) 20 mg PO DAILY [facility] Last Admin: 08/19/24 08:30 Dose: 20 mg Documented By: NICOLE Labs 08/18/24 06:10 08/18/24 06:10 Microbiology Microbiology Results: Microbiology 08/16/24 15:24 Gram Stain - Final Abdomen - Abscess Routine Culture - Final Enterococcus faecalis 08/16/24 12:14 Blood Culture - Preliminary Blood - Venous No growth after 48 hours. 08/16/24 12:14 Blood Culture - Preliminary Blood - Venous No growth after 48 hours. Assessment and Plan (1) Fever: Status: Acute (2) Colostomy in place: Status: Acute Plan Pt is a 43-year-old female with a PMH significant for right occipital neuralgia, FND, IBS, hx of epidural abscess L2-L5, GERD, anxiety, and depression admitted to the hospital for elective sigmoid colostomy after long hx of constipation, diarrhea, and incontinence. Hospitalist consult for postop fever. Intraabdominal abscess Fever resolved blood cultures negative after 48 hours Abscess culture growing sensitive Enterococcus Covered with Unasyn for now; can be discharged on Augmentin 825 bid for 1 week Thank you for the consult. will continue to follow along with you as needed. please contact hospitalist team for any further questions. Quality Stroke Does the patient have a stroke diagnosis?: No VTE Prior VTE?: No VTE Risk Level:: Medical - low VTE Device Contraindication: N/A - Device Ordered VTE Drug Contraindication: Treatment Not Indicated
--- NOTE | 2024-08-19 15:03 | PM.EVENT ---
Event Note Date of Service: 08/19/24 Event Note: Seen on afternoon rounds Now has large amounts of stool via the stoma, mostly water this afternoon Tolerating diet but she is anxious about this has a periodic nausea Abdomen is soft and benign She looks well overall Continue bowel regimen We will stop erythromycin Ambulate Time Spent With Patient Time: Total time managing care of this patient today ____ minutes.
[2024-08-19] MEDS: clonazePAM 1 MG TABLET PO ×2 (15:09→22:35)
[2024-08-19 15:20] VITALS: BP 113/68; PULSE 81; RESP 18; TEMP 36.6; O2SAT 95
[2024-08-19 19:18] VITALS: BP 120/54; PULSE 97; RESP 18; TEMP 37.1; O2SAT 96
[2024-08-19] MEDS: hydrOXYzine HCL 25 MG TABLET PO (20:08)
[2024-08-19] MEDS: lamoTRIgine 25 MG TABLET 50 MG PO (20:08)
[2024-08-19] MEDS: HYDROmorphone HCl 0.5 MG/0.5 ML SYRINGE IVPUSH (22:27)
[2024-08-20] MEDS: Ampicillin Sodium/Sulbactam Na 3 GM in 0.9 % Sodium Chloride 100 ML IV ×2 (01:38→08:01)
[2024-08-20 03:28] VITALS: BP 119/67; PULSE 100; RESP 20; TEMP 37.2; O2SAT 96
[2024-08-20] MEDS: Ketorolac Tromethamine 15 MG/ML VIAL IVPUSH (03:40)
[2024-08-20] MEDS: Acetaminophen 325 MG TABLET 650 MG PO (03:43)
[2024-08-20] MEDS: HYDROmorphone HCl 0.5 MG/0.5 ML SYRINGE IVPUSH (04:43)
[2024-08-20] MEDS: Omeprazole 20 MG CAPSULE.DR PO (05:27)
[2024-08-20] MEDS: 0.9 % Sodium Chloride Flush 3 ML SYRINGE IVFLUSH (07:51)
[2024-08-20 08:00] VITALS: BP 117/77; PULSE 80; RESP 16; TEMP 36.2; O2SAT 96
[2024-08-20] MEDS: lamoTRIgine 100 MG TABLET 200 MG PO (08:03)
[2024-08-20] MEDS: MESALAMINE 0.375 GM 1.5 GM PO (08:04)
[2024-08-20] MEDS: Famotidine 20 MG TABLET PO (08:04)
[2024-08-20] MEDS: Mirabegron 50 MG TAB.ER.24H PO (08:04)
[2024-08-20] MEDS: Vortioxetine Hydrobromide 20 MG TABLET PO (08:04)
[2024-08-20] MEDS: Magnesium Oxide 400 MG TABLET PO (08:04)
[2024-08-20] MEDS: Cholecalciferol (Vitamin D3) 25 MCG TABLET 125 MCG PO (08:04)
[2024-08-20] MEDS: valACYclovir HCL 500 MG TABLET PO (08:04)
--- NOTE | 2024-08-20 09:08 | P.PNGS_ITS ---
Subjective Subjective Date of Service: 08/20/24 <Faraz Diez PA-C - Last Filed: 08/20/24 10:44> 08/20/24 <Jesus Allen MD - Last Filed: 08/20/24 09:11> Patient reports: flatus and bowel movement <Faraz Diez PA-C - Last Filed: 08/20/24 10:44> Interval history: Patient reports she is doing okay this morning. She states she had a difficult night due to intermittent severe pain, requiring her to use the PRN pain medications. She continues to endorse pain this morning but notes improvement from last night. She continues to pass large amounts of now liquid stool into bag. She has been regular tolerating diet, some mild bloating and nausea after meals. Patient expresses the desire to go home today, feels as though she is ready to go home and that she will be able to manage her pain at home and be more comfortable at home. <Faraz Diez PA-C - Last Filed: 08/20/24 10:44> Feels well although admits to having pain last night Stoma functioning well Oral intake much better No fever <Jesus Allen MD - Last Filed: 08/20/24 09:11> Physical Exam 2 Vital Signs: Vital Signs: Last Vital Signs Temp 97.2 F 08/20/24 08:00 Pulse 80 08/20/24 08:00 Resp 16 08/20/24 08:00 BP 117/77 08/20/24 08:00 Pulse Ox 96 08/20/24 08:00 O2 Del Method Room Air 08/20/24 08:00 O2 Flow Rate 2 08/12/24 16:34 BMI result Body Mass Index 42.6 <Faraz Diez PA-C - Last Filed: 08/20/24 10:44> Const: General: comfortable <DAVID Babb Last Filed: 08/20/24 10:44> General: comfortable and no acute distress <Jesus Allen MD - Last Filed: 08/20/24 09:11> Orientation/consciousness: patient oriented x3 <DAVID Babb Last Filed: 08/20/24 10:44> Resp: Effort & Inspection: able to speak in complete sentences <Faraz Diez PA-C - Last Filed: 08/20/24 10:44> Effort & Inspection: normal respiratory effort <Jesus Allen MD - Last Filed: 08/20/24 09:11> Cardio: Rate: regular rate <Jesus Allen MD - Last Filed: 08/20/24 09:11> GI: Other: Stoma with good output, incision clean and dry <Jesus Allen MD - Last Filed: 08/20/24 09:11> Inspection: No distended <Jesus Allen MD - Last Filed: 08/20/24 09:11> Palpation (GI): Soft to palpation, not firm and nontender <Jesus Allen MD - Last Filed: 08/20/24 09:11> Percussion: Yes normal to percussion <Faraz Diez PA-C - Last Filed: 08/20/24 10:44> Neuro: General: patient oriented x3 <Faraz Diez PA-C - Last Filed: 08/20/24 10:44> Objective Data Active Medications Acetaminophen (Acetaminophen 325 Mg Tablet) 650 mg PO Q4H PRN PRN Reason: Pain, Mild 1-3,fever,headache Last Admin: 08/20/24 03:43 Dose: 650 mg Documented By: DANIELLE Calcium Carbonate (Calcium Carbonate 750 Mg Tab.Chew) 750 mg PO Q4H PRN PRN Reason: Heartburn Last Admin: 08/13/24 05:05 Dose: 750 mg Documented By: YOLANDA Clonazepam (Clonazepam 1 Mg Tablet) 1 mg PO TID PRN PRN Reason: Anxiety Last Admin: 08/19/24 22:35 Dose: 1 mg Documented By: DANIELLE Docusate Sodium (Docusate Sodium 100 Mg Capsule) 100 mg PO BID [facility] Last Admin: 08/20/24 07:22 Dose: Not Given Documented By: NICOLE Non-Admin Reason: loose stools Famotidine (Famotidine 20 Mg Tablet) 20 mg PO BID [facility] Last Admin: 08/20/24 08:04 Dose: 20 mg Documented By: NICOLE Fluticasone Propionate (Fluticasone Propionate Nasal 16 Gm [place]) 2 spray NOSTRIL-B DAILY PRN PRN Reason: Allergy Symptoms Hydromorphone HCl (Hydromorphone Hcl 0.5 Mg/0.5 Ml Syringe) 0.5 mg IVPUSH Q4H PRN; Protocol PRN Reason: Pain, Severe (Pain Scale 7-10) Last Admin: 08/20/24 04:43 Dose: 0.5 mg Documented By: DANIELLE Hydroxyzine HCl (Hydroxyzine Hcl 25 Mg Tablet) 25 mg PO BEDTIME [facility] Last Admin: 08/19/24 20:08 Dose: 25 mg Documented By: DANIELLE Ampicillin Sodium/Sulbactam (Sodium 3 gm/ Sodium Chloride) 100 mls @ 200 mls/hr IV Q6H [facility] Last Infusion: 08/20/24 08:44 Dose: Infused Documented By: NICOLE Ketorolac Tromethamine (Ketorolac Tromethamine 15 Mg/Ml Vial) 15 mg IVPUSH Q6H [facility] Last Admin: 08/20/24 03:40 Dose: 15 mg Documented By: DANIELLE Lactulose (Lactulose 20 Gm/30 Ml Solution) 20 gm PO DAILY PRN PRN Reason: Constipation Lamotrigine (Lamotrigine 100 Mg Tablet) 200 mg PO DAILY [facility] Last Admin: 08/20/24 08:03 Dose: 200 mg Documented By: NICOLE Lamotrigine (Lamotrigine 25 Mg Tablet) 50 mg PO BEDTIME [facility] Last Admin: 08/19/24 20:08 Dose: 50 mg Documented By: DANIELLE Magnesium Oxide (Magnesium Oxide 400 Mg Tablet) 400 mg PO DAILY [facility] Last Admin: 08/20/24 08:04 Dose: 400 mg Documented By: NICOLE Melatonin (Melatonin 3 Mg Tablet) 6 mg PO BEDTIME PRN PRN Reason: Insomnia Mesalamine (Mesalamine 0.375 Gm Cap.Er.24h) 1.5 gm PO DAILY [facility] Last Admin: 08/20/24 08:04 Dose: 1.5 gm Documented By: NICOLE Mirabegron (Mirabegron 50 Mg Tab.Er.24h) 50 mg PO DAILY [facility] Last Admin: 08/20/24 08:04 Dose: 50 mg Documented By: NICOLE Omeprazole (Omeprazole 20 Mg Capsule.Dr) 20 mg PO BID@0630,1630 [facility] Last Admin: 08/20/24 05:27 Dose: 20 mg Documented By: DANIELLE Ondansetron HCl (Ondansetron Hcl 4 Mg/2 Ml Vial) 4 mg IVPUSH Q6H PRN PRN Reason: Nausea and Vomiting Last Admin: 08/19/24 15:09 Dose: 4 mg Documented By: NICOLE Polyethylene Glycol (Polyethylene Glycol 3350 17 Gm Powd.Pack) 17 gm PO DAILY [facility] Last Admin: 08/20/24 07:23 Dose: Not Given Documented By: NICOLE Non-Admin Reason: loose stools Sodium Chloride (0.9 % Sodium Chloride Flush 3 Ml Syringe) 3 ml IVFLUSH QSHIFT [facility] Last Admin: 08/20/24 07:51 Dose: 3 ml Documented By: NICOLE Tramadol HCl (Tramadol Hcl 50 Mg Tablet) 50 mg PO Q6H PRN PRN Reason: Pain, Moderate(Pain Scale 4-6) Last Admin: 08/18/24 20:19 Dose: 50 mg Documented By: DANIELLE Valacyclovir HCl (Valacyclovir Hcl 500 Mg Tablet) 500 mg PO DAILY [facility] Last Admin: 08/20/24 08:04 Dose: 500 mg Documented By: NICOLE Vitamin D (Cholecalciferol (Vitamin D3) 25 Mcg Tablet) 125 mcg PO DAILY [facility] Last Admin: 08/20/24 08:04 Dose: 125 mcg Documented By: NICOLE Vortioxetine (Vortioxetine Hydrobromide 20 Mg Tablet) 20 mg PO DAILY [facility] Last Admin: 08/20/24 08:04 Dose: 20 mg Documented By: NICOLE <Faraz Diez PA-C - Last Filed: 08/20/24 10:44> Labs CBC & Chem 7: 08/18/24 06:10 08/18/24 06:10 <Faraz Diez PA-C - Last Filed: 08/20/24 10:44> Microbiology Microbiology Results: Microbiology 08/16/24 15:24 Gram Stain - Final Abdomen - Abscess Routine Culture - Final Enterococcus faecalis <Faraz Diez PA-C - Last Filed: 08/20/24 10:44> Procedures Date of Service Date of Service: 08/20/24 <Faraz Diez PA-C - Last Filed: 08/20/24 10:44> 08/20/24 <Jesus Allen MD - Last Filed: 08/20/24 09:11> Progress Note: A&P Assessment and plan (1) Colostomy in place: Status: Acute <Faraz Diez PA-C - Last Filed: 08/20/24 10:44> Assessment and Plan: 43-year-old female POD a s/p colostomy creation. Patient doing okay today, was requiring as needed pain medications overnight due to some increased pain. Continues to have good ostomy output with liquid stool, flatus. Abdominal exam is soft and benign. Tolerating diet. incision clean dry and intact. Plan for DC today We will send with home Augmentin and bowel regimen Patient agreeable to plan <Faraz Diez PA-C - Last Filed: 08/20/24 10:44> Assessment and Plan: States she wants to go home today Admits to having some pain from the stoma site last night Stoma with very good output, both gas and stool Abdomen is soft, nondistended, incision clean She looks well No fever We will DC home on bowel regimen Augmentin as recommended by the hospitalist I had a long discussion with her about the above She is comfortable with the plan <Jesus Allen MD - Last Filed: 08/20/24 09:11> Time Spent With Patient Time: Total time managing care of this patient today __30__ minutes. <Faraz Diez PA-C - Last Filed: 08/20/24 10:44> Quality Stroke Does the patient have a stroke diagnosis?: No <Faraz Diez PA-C - Last Filed: 08/20/24 10:44> VTE Prior VTE?: No <Faraz Diez PA-C - Last Filed: 08/20/24 10:44> VTE Risk Level:: Medical - low <Faraz Diez PA-C - Last Filed: 08/20/24 10:44> VTE Device Contraindication: N/A - Device Ordered <Faraz Diez PA-C - Last Filed: 08/20/24 10:44> VTE Drug Contraindication: Treatment Not Indicated <Faraz Diez PA-C - Last Filed: 08/20/24 10:44>
--- NOTE | 2024-08-20 10:49 | MHC.CM.PN ---
DP: PT HAS BEEN MEDICALLY CLEARED FOR DC HOME WITH NEW [facility] FOR OSTOMY CARE/TEACHING. [facility] NOTIFIED OF TODAY'S DC. [facility] WILL TRANSPORT HOME.
--- NOTE | 2024-08-20 10:52 | P.F2F_ITS ---
Service Date Service Date: 08/20/24 Encounter Date of encounter: 08/20/24 Reasons for Services Signs and symptoms assessed: ostomy care wound care Reason for senior care: wound care, GI/ assessment and other (ostomy care) Homebound: Leaving the home is medically contraindicated at this time without the asist of a device and/or another person due th the listed conditions above and below. Reason homebound: weakness related to hospital stay Certification: Based on the above findings, I certify that this patient is confined to the home and needs intermittent senior care care, physical therapy and/or speech therapy, or continues to need occupational therapy. The patient is under my care, and I have initiated the establishment of the plan of care. The patient will be followed by a physician who will periodically review the plan of care. Time Spent With Patient Time: Total time managing care of this patient today ____ minutes.
--- NOTE | 2024-08-20 11:09 | PM.DS ---
DS: Providers Provider Date of Service: 08/20/24 Date of admission: 08/12/24 13:04 Date of discharge: 08/20/24 Primary care physician: Ismael Gary DO Admitting clinician: Jesus Allen Attending physician on admission: Jesus Allen Consults: 08/12/24 16:33 Consult to Ostomy Care Routine 08/13/24 14:28 Consult to Wound Care Routine Reason for consultation: Ostomy Care 08/16/24 09:10 Consult to Hospitalist Routine Comment: Consulting Provider: [facility] Hospitalists Reason For Exam: fever, dysuria, interstitial cystitis andUTI's 08/16/24 11:37 Consult to Hospitalist Routine Comment: Consulting Provider: [facility] Hospitalists Reason For Exam: fever, hx of UTIs, interstitial cystitis Attending physician on discharge: Jesus Allen DS: Diagnosis Discharge Diagnosis (1) Colostomy in place: Status: Acute DS: Summary Hospital Course Hospital Course: Pre Op Evaluation: 43 year female with right-sided occipital neuralgia, chronic interstitial cystitis, reflux symptoms, morbid obesity, and IBs, anxiety and depression who was admitted last week because of constipation. She does have a diagnosis of IBS. She describes having problems with severe diarrhea including incontinence since 2020. Often times, she would also have severe constipation I would not have a good bowel movement for several days. She therefore has had chronic abdominal pain. She had a flexible sigmoidoscopy as an inpatient last week and this is not reveal any obstruction in the sigmoid. However, she had a barium enema test showing suggestion of a narrowing in the sigmoid. She has been desperate to have a ?colostomy? done and says that she prefers having a colostomy instead of going through diarrhea and incontinence and constipation. She says that she also has chronic pain because of her GI issues. She describes being ?desperate? for having a colostomy says she says she has tired of going through all these alternating diarrhea and constipation with incontinence. She always feels bloated. She has been followed by GI for many years now because of her chronic GI issues with reflux, diarrhea and constipation. She says she was told she had IBS . She had a colonoscopy about 2 years ago in [place] and she she had a small rectal ulcer at that time. Hospital Course: 43 year female with right-sided occipital neuralgia, chronic interstitial cystitis, reflux symptoms, morbid obesity, and IBs, anxiety and depression, had elective colostomy creation on 08/12/2024 for question of sigmoid stricture, with constipation and diarrhea with incontinence. Patient tolerated the procedure well and was admitted to the [facility] floor for postoperative observation and management. On POD 1 patient was experiencing significant abdominal pain, nausea associated with clear liquid diet. Changes were made to patient's pain regimen, which she tolerated well experienced improvement. Her new ostomy site appeared appropriate, beefy red and it began producing flatus. Maddox was discontinued, patient voiding adequately independently. She was able to ambulate in her room and throughout the floor. The patient was seen by the ostomy care nurse to begin education about caring for her new ostomy. In the following days the patient's condition was largely unchanged, she continued to experience bouts of intermittent severe pain, and she was able to control her pain with the changes to her as needed medications. On postop day 2 diet was attempted to be advanced, patient experiencing nausea with larger meals, she was recommended to try eating smaller more frequent meals. On postop day 4 patient developed a postoperative fever, elevated WBC. The hospitalist team was consulted and CT was ordered showing a small fluid collection under the incision site which was drained by Dr. Allen at bedside and found to be a seroma. This was redressed and monitored daily. Additionally chest x-ray was not suggestive of pneumonia, UA was not suggestive of UTI, however patient was started empirically on Zosyn. Culture was obtained, showing Enterococcus faecalis. Per hospitalist recommendation, the patient was switched to unasyn with recommendation for augmentin 825 bid for 1 week. Fluid collection was no longer draining after I&D and abx. In the next few days the patient continued to improve towards baseline, advancing ambulation as tolerated, tolerating diet. On POD 7 patient began producing firm stool through ostomy site, and was started on bowel regimen. Continued to experience intermittent abdominal pain, likely secondary to her bowel function resuming. Her abdominal exam remained benign aside from incisional site pain. Ostomy later began producing large amounts of liquid stool. Patient was able to empty and change the bag independently. On POD 8 patient continues to have some pain but felt ready for discharge. Her abdominal exam was soft and benign at the time of discharge. She was discharged in stable condition with pain regimen, antibiotics, VNA services in place for home ostomy and wound care Status at Discharge Functional status at discharge: independent ambulation Overall status at discharge: patient is progressing back to baseline Time Attestation Discharge Coordination Time (in mins): 30 Quality: Safe Use of Opioids Does Pt have an Active Cancer Diagnosis on the Problem List?: No Quality: Stroke Does the patient have a stroke diagnosis?: No Physical Exam Vital Signs: Vital Signs: Last Vital Signs Temp 97.2 F 08/20/24 08:00 Pulse 80 08/20/24 08:00 Resp 16 08/20/24 08:00 BP 117/77 08/20/24 08:00 Pulse Ox 96 08/20/24 08:00 O2 Del Method Room Air 08/20/24 08:00 O2 Flow Rate 2 08/12/24 16:34 BMI result Body Mass Index 42.6 Const: General: comfortable and no acute distress Orientation/consciousness: patient oriented x3 Resp: Effort & Inspection: normal respiratory effort and able to speak in complete sentences GI: Other: incision clean dry and intact Inspection: No distended Palpation (GI): Soft to palpation, not firm, Tenderness to palpation present (GI) (mild left sided tenderness around incision site), no guarding and not rigid Skin: Lesions: no lesions Rashes: no rashes Neuro: General: patient oriented x3 Extrem: General: Yes normal to inspection and Yes full ROM DS: Data Data Completed and Pending Completed studies during hospitalization [Text1]: Procedures Drainage of Large Intestine, Via Natural or Artificial Opening Endoscopic (07/25/24) Excision of Rectum, Via Natural or Artificial Opening Endoscopic, Diagnostic (07/25/24) Excision of Sigmoid Colon, Via Natural or Artificial Opening Endoscopic, Diagnostic (07/25/24) Labs on day of discharge: Preliminary micro results at discharge 08/16/24 12:14 Blood Culture - Preliminary Blood - Venous No growth after 48 hours. 08/16/24 12:14 Blood Culture - Preliminary Blood - Venous No growth after 48 hours. Discharge Plan Discharge Anticipated Discharge Date/Time: 08/17/24 13:27 Patient Disposition: Home Health Service Discharge Diagnosis: s/p colostomy Referrals: [facility] [Outside] - 3-5 Days (home services for residential-a nurse will call you to set up first visit) Ismael Gary DO [Primary Care Provider] - 1 Week Jesus Allen MD [Physician] - 2 Weeks Discharge Medications: New docusate sodium [Colace] 100 mg capsule 100 mg PO BID Qty: 60 3RF polyethylene glycol 3350 [Miralax] 17 gram/dose powder 17 g PO DAILY Qty: 510 2RF amoxicillin-pot clavulanate 875-125 mg tablet 1 tab PO BID Qty: 10 0RF oxycodone 5 mg tablet 5 mg PO Q6H PRN (Reason: pain (scale score 7-10)) Qty: 25 0RF Rx Instructions: Partial Fill upon patient request. Continued magnesium hydroxide [Milk of Magnesia] 400 mg/5 mL suspension 10 ml PO DAILY PRN (Reason: constipation) Qty: 355 0RF valacyclovir 500 mg tablet 500 mg PO DAILY Trintellix 20 mg tablet 20 mg PO DAILY lamotrigine 200 mg tablet 200 mg PO DAILY Rx Instructions: 200mg in morning, 25mg at night lamotrigine 25 mg tablet 50 mg PO BEDTIME Rx Instructions: 200mg in morning, 25mg at night sennosides [senna] 8.6 mg tablet 17.2 mg PO BEDTIME PRN (Reason: constipation) tamsulosin 0.4 mg capsule 0.4 mg PO BEDTIME bisacodyl 5 mg tablet,delayed release (DR/EC) 10 mg PO BEDTIME magnesium oxide 400 mg magnesium capsule 400 mg PO DAILY mirabegron [Myrbetriq] 50 mg tablet extended release 24 hr 50 mg PO DAILY fluticasone propionate 50 mcg/actuation [place],Suspension 2 spray INTRANASAL DAILY PRN (Reason: Allergy Symptoms) Rx Instructions: administer into each nostril esomeprazole magnesium [Nexium] 40 mg Capsule,Delayed Release(Dr/Ec) 40 mg PO DAILY lactulose 10 gram/15 mL Solution 20 g PO BID Qty: 1200 0RF pramoxine 1 % Foam 1 appl UT BID Qty: 15 2RF mesalamine 0.375 gram Capsule,Extended Release 24hr 1.5 g PO DAILY Qty: 90 0RF ondansetron 4 mg tablet,disintegrating 4 mg PO Q8H PRN (Reason: nausea and vomiting) Qty: 30 1RF famotidine 20 mg tablet 20 mg PO BID hydroxyzine HCl 25 mg tablet 25 mg PO BEDTIME clonazepam 1 mg tablet 1 mg PO TID cholecalciferol (vitamin D3) 125 mcg (5,000 unit) capsule 125 mcg PO DAILY Qty: 90 3RF Citrucel 500 mg tablet 500 mg PO DAILY Qty: 90 2RF Rx Instructions: take it with full glass of water eszopiclone [Lunesta] 3 mg tablet 3 mg PO BEDTIME Discharge Orders: Discharge Order (Routine); Ordered 08/20/24 Ordered By: Faraz Diez Diet: Advance to usual diet Activity on Discharge: No heavy lifting Stand Alone Forms: Patient Portal Discharge page Print Language: Occitan Activity Restrictions/Additional Instructions: If your incision site is sore, you may apply ice to the area for short periods of time (no more than 20 minutes at a time, followed by 20 minutes off). You were prescribed tramadol to assist with pain management as needed. You can additionally use OTC ibuprofen or acetaminophen as needed for pain. You can resume your home bowel regimen as needed for constipation. You can remove the dressings at home, they do not need to be redressed. Steri strips can remain in place and will likely fall on their own or in the shower. No heavy lifting >20 pounds No strenuous activity. Do not use creams, lotion, ointment on the incision sites You will follow up with Dr. Allen in the office in 2 weeks, you can call the office to schedule the appointment ) Please reach out to the office or be seen at the emergency department if you develop: -Fever >101.5 -Increasing pain or swelling of the area -Increased bleeding from the incision site or the incision begins to separate -If you are concerned for incision site infection such as redness, warmth, discharge. Some yellow/pink tinged discharge is normal -You develop nausea or vomiting Ostomy recommendations: 1. Empty pouch before pouch change 2. Remove pouch using push/pull technique from top to bottom 3. Cleanse stoma and skin with tap water only - no soap or baby wipes 4. Pat dry 5. Measure stoma and cut new pouch no more than 1/8 inch larger than stoma and no smaller than stoma 6. If instructed by your ostomy nurse stretch barrier seal to the size of the stoma and press onto skin around stoma (up to the edge of the stoma but not onto the stoma) 7. Press the new pouch into place and hold for several minutes (close pouch tail) 8. Empty pouch when 1/3 to 1/2 full 9. Change pouch twice weekly on a schedule (for example, every Sunday and ) and as needed for any leaking (feels like intense itch or burn at edge of stoma) Care Plan Goals: Return to baseline health and resume normal daily activities Health Concerns: Colosotmy care pain management Interstitial Cystitis Plan of Treatment: s/p colostomy Follow up in office in 2 weeks Assessment: Doing well post op Discharge Date/Time: 08/20/24 10:53
== END 2024-08-20 10:53 | disposition home health service (06) | DRG 231 ==
LOC: HO.SSSA 13:05 → HO.S3 15:27
PROVIDERS: Student in an Organized Health Care Education/Training Program; Admitting Provider Surgery; PCP Student in an Organized Health Care Education/Training Program; Visit Provider Surgery
PROC: 0DTE0ZZ Resection of Large Intestine, Open Approach (ICD-10-PCS; principal; 2024-08-12 13:00)
DX: K59.09 Other constipation (principal); N30.10 Interstitial cystitis (chronic) without hematuria; B95.2 Enterococcus as the cause of diseases classified elsewhere; E66.01 Morbid (severe) obesity due to excess calories; G89.18 Other acute postprocedural pain; L76.34 Postprocedural seroma of skin and subcutaneous tissue following other procedure; Y83.8 Other surgical procedures as the cause of abnormal reaction of the patient, or of later complication, without mention of misadventure at the time of the procedure; R50.82 Postprocedural fever; M54.81 Occipital neuralgia; Z20.822 Contact with and (suspected) exposure to COVID-19; Z68.41 Body mass index [BMI] 40.0-44.9, adult; Z79.899 Other long term (current) drug therapy
CPT/HCPCS: 0241U; 36415; 71046; 74177; 80048; 80076; 81001; 83605; 85025; 85027; 85652; 86140; 86850; 86900; 86901; 87040; 87070; 87077; 87186; 87205; J0131; J0295; J0665; J1100; J1171; J1885; J2003; J2250; J2270; J2405; J2543; J2704; J2795; J3010; J7120; Q9967

== ENCOUNTER 2024-08-12 13:04 | Outpatient (BNV) | payer OTHER, SELFPAY | END 2024-08-16 13:40 | PROVIDERS: Admitting Provider Surgery; PCP Student in an Organized Health Care Education/Training Program; Visit Provider Radiology Vascular & Interventional Radiology | DX: K91.858 Other complications of intestinal pouch (principal); R50.9 Fever, unspecified | CPT/HCPCS: 71046; 74177 ==

== ENCOUNTER → 2024-08-12 13:04 | Outpatient (BNV) | payer OTHER, SELFPAY | PROVIDERS: Admitting Provider Surgery; PCP Student in an Organized Health Care Education/Training Program; Visit Provider Student in an Organized Health Care Education/Training Program | DX: R50.9 Fever, unspecified (principal) | CPT/HCPCS: 99223; 99231; 99232 ==

== ENCOUNTER → 2024-08-12 13:04 | Outpatient (BNV) | payer OTHER, SELFPAY | PROVIDERS: Admitting Provider Surgery; PCP Student in an Organized Health Care Education/Training Program; Visit Provider Surgery | DX: Z93.3 Colostomy status (principal) | CPT/HCPCS: 99024; 99499 ==

== ENCOUNTER 2024-08-20 23:48 | Emergency (ER) | payer OTHER, SELFPAY ==
--- NOTE | ~2024-08-20 | CT_ITS ---
CLINICAL HISTORY: pain, s p colectomy, with abdominal wall abscess CT abdomen and pelvis with contrast Comparison: CT/SR - CT ABDOMEN PELVIS W IV CON - 08/16/24 13:42 EDT Findings: Small bilateral pleural effusions. Associated mild dependent atelectasis both lung bases. Cholecystectomy. Abdominal solid organs unremarkable. Left lower quadrant colostomy. Fluid in the proximal colon. No abnormal wall thickening, pneumoperitoneum, or pneumatosis. Mesenteric vessels patent. Along the left side of an infraumbilical incision line there is a 7.3 x 3.2 x 3.2 cm fluid collection (previously 4.7 x 2.7 x 1.7 cm) which demonstrates a new internal fat-fluid level, and a persistent small focus of gas. There is mild surrounding subcutaneous fat induration. Hysterectomy. Ovaries unremarkable. Appendix not identified. No ascites. The bones are intact. IMPRESSION: 1. Increasing left paramidline infraumbilical abdominal wall fluid collection. This could be infected fluid. Recommend further clinical investigation. 2. There is increased fluid in the colon proximal to a left lower quadrant colostomy site. No evidence of obstruction. Etiology indeterminate. 3. Small bilateral pleural effusions similar to the prior. This document has been electronically signed by: Deisy Santiago MD on 08/21/2024 03:53:31
[2024-08-20 23:53] VITALS: BP 150/92; PULSE 91; RESP 16; TEMP 37; O2SAT 98; BMI 39.0
--- OUTSIDE RECORDS SUMMARY | 2024-08-21 00:06 | XMS_ITS | Encounter Summary ---
Author Organization [facility] Address [address] [place] [address] Care Team Providers Care Special Weapons And Tactics Officer Name Role Phone Nori Posey MD Primary Care Provider [phone] Encounter Details Date Type Department Care Team (Late st Contact Info) Description 01/02/2024 10:45 AM EDT Hospital Encounter TH HISTORIC ENCOUNTERS EASTERN CONVERSION ONLY Yossi Marina MD [address] [place] [address] [phone] Social History Tobacco Use Types Packs/Day Years [...] home since Sunday. Still has a black akiak in visual field of L eye. Still [...] ambulation ?? 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 The majority of the actual udmo-oa-lkit visit was spent counseling the patient with respect to the current neurological picture. Yossi Marina MD documented in this encounter Plan of Treatment Not on file documented as of this encounter Visit Diagnoses Not on filedocumented in this encounter Care Teams Special Weapons And Tactics Officer Relationship Specialty Start Date End Date Nori Posey MD PCP - General 01/30/23 04/22/24 documented as of this encounter
--- OUTSIDE RECORDS SUMMARY | 2024-08-21 00:06 | XMS_ITS | Clinical Summary ---
Author Organization [facility] Address [address] [place] [address] Phone Care Team Providers Care Physician General Internal Medicine Name Role Phone Janet Harding MD Primary Care Provider [phone] Allergies Active Allergy Reactions Criticality Noted Date [...] Care Team Description 08/04/2024 Telephone Gastroenterology - [place] [address] [facility] [address] [facility] [address] [place] [address] Marcia Strange PA Consult Appointment from Last 3 Months Immunizations Name Administration Dates Next Due Tdap Tetanus diptheria acell ular pertussis (Boostrix; Adacel) 7yo and older 05/04/2023 Surgical History Surgery Date Site/Laterality Comments CHOLECYSTECTOMY PROCEDURE: [place] LAPAROSCOPY SURG CHOLECYSTECTOMY HYSTERECTOMY 2015 PROCEDURE: HISTORICAL HYSTERECTOMY THERAPEUTIC PROCEDURE:THERAPEUTIC APPENDECTOMY PROCEDURE:APPENDECTOMY TONSILLECTOMY PROCEDURE:TONSILLECTOMY HYSTERECTOMY PROCEDURE:HYSTERECTOMY CHOLECYSTECTOMY PROCEDURE:CHOLECYSTECTOMY LUMBAR PUNCTURE PROCEDURE:LUMBAR PUNCTURE BLADDER SURGERY PROCEDURE:BLADDER SURGERY Medical History Medical History Date Comments Migraine headache DX:Migraine he adache HSV-2 (herpes simplex virus 2) infection DX:HSV-2 (herpes simplex virus 2) infection PTSD (post-traumatic stress disorder) DX:PTSD (post-traumatic stress disorder) Suicide and self-inflicted i njury ([facility] V24, [facility] V28) DX:Suicide and self-inflict ed injury ([facility]) Major depression, chronic DX:Peryc or depression, chronic Body dysmorphic disorder DX:Body [...] DX:Guaiac positive stools Hematuria DX:Hematuria Uterine cancer ([facility] V24, [facility] V28) 2014 DX:Uterine cancer ([facility]) Interstitial cystitis DX:Interst itial cystitis Herpes [...] 05/05/2024 11:08 AM EST Plan of Treatment Health Maintenance Due Date [...] AM EST Narrative 06/05/2022 11:27 AM EST [facility] Diagnostic Imaging Department [address] [place] [id number] Patient: ??PAULA JULES ?/Age/Sex: 1980 - 41 - F Unit#: ??[id number] ? Location/Status: ??SPDIMAM/REG CLI ? Mnemonic/Ordering Site: [...] the MLO projection. Computer aided detection with PanX 7.2-H and Panopto 3D 3.1 was employed. TISSUE DENSITY: b. [...] Routine screening mammogram BILATERAL in 1 year. [id number], [id number] 3341F, 7025F Dictating Physician: ??KIYA MYLES MD Electronically Signed by: ??KIYA MYLES MD Dic Date/Time: ??06/05/22 1126 Sign date/Time: ??06/05/22 1127 Procedure Note Kiya Myles MD - 05/04/2023 [facility] Diagnostic Imaging Department [address] [place], [place] [id number] Patient: COY REDDPAULA /Age/Sex: 1980 - 41 - F Unit#: [id number] Location/Status: [facility]/REG CLI Mnemonic/Ordering Site: [facility] Ordering Physician: VIDAL GARY DO [facility] Screening Digital - 06/05/22 - 854 EXAM: [facility] Screening Digital EXAM DATE AND TIME: 06/05/2022 8:56 AM HISTORY: Screening. Baseline exam. Maternal grandmother had breastcarcinoma. COMPARISON: No comparison imaging. TECHNIQUE: CC and MLO views of both breasts were obtained using fullfield digital mammography. Bilateral digital breast tomosynthesis was performedin the MLO projection. Computer aided detection with PanX 7.2-H andPanopto 3D 3.1 was employed. TISSUE DENSITY: b. [...] Routine screening mammogram BILATERAL in 1 year. [id number], 60339 3341F, 7025F Dictating Physician: KIYA MYLES MD Electronically Signed by: KIYA MYLES MD Dic Date/Time: 06/05/22 1126 Sign date/Time: 06/05/22 1127 Vidal Gary DO G BI PROCEDURES Final Result * Hepatitis C Screening (03/06/2022) Pathologist [facility] Hepatitis C Screening Abstracted Historical Provider HEALTH MAINTENANCE Final Result * (ABNORMAL) Lipid panel (03/06/2022) Pathologist [facility] LDL/HDL Ratio 4 0 - 4 Triglycerides [...] [facility] Care Teams Physician General Internal Medicine Relationship Specialty Start Date End Date Janet Harding MD [address] [place] [address] PCP - General Internal Medicine 08/04/24
--- NOTE | 2024-08-21 00:49 | ED.GENADULT ---
HPI - General Adult General Chief complaint: Wound/Laceration Stated complaint: not feeling well still was D/C today Time Seen by Provider: 08/21/24 00:44 Source: patient Limitations: no limitations History of Present Illness ED Provider: Adalgisa Maddox PA-C HPI narrative: 43-year-old female with a history of chronic constipation with diarrhea,and bowel incontinence, now s/p sigmoid colostomy 08/12 Dr. Allen, IBS, morbid obesity, right-sided occipital neuralgia, chronic interstitial cystitis, anxiety and depression presents with abdominal pain. Patient developed a fever with worsening abdominal pain POD 4, found to have a small fluid collection under the incision site, found to be a seroma, a wound culture was obtained, the patient was placed on antibiotics throughout the remainder of her hospital course, and discharged on Augmentin today 08/20. Patient states she was eager to be discharged home. Overnight, the patient was up to use the bathroom, she states she has been having new worsening drainage from the incision site where the seroma was drained. Her abdominal pain and nausea are poorly controlled; patient vomited here in the emergency department upon arrival. She continues to have appropriate output from the ostomy. Denies new onset fever. Related Data Home Medications ?Medication ?Instructions ?Recorded ?Confirmed lamotrigine 200 mg tablet 200 mg PO DAILY 01/02/23 08/07/24 valacyclovir 500 mg tablet 500 mg PO DAILY 01/02/23 08/07/24 vortioxetine 20 mg tablet 20 mg PO DAILY 01/02/23 08/07/24 (Trintellix) clonazepam 1 mg tablet 1 mg PO TID 01/08/24 08/07/24 famotidine 20 mg tablet 20 mg PO BID 01/08/24 08/07/24 hydroxyzine HCl 25 mg tablet 25 mg PO BEDTIME 01/08/24 08/07/24 lamotrigine 25 mg tablet 50 mg PO BEDTIME 01/08/24 08/07/24 bisacodyl 5 mg tablet,delayed 10 mg PO BEDTIME 07/25/24 08/12/24 release esomeprazole magnesium 40 mg 40 mg PO DAILY 07/25/24 08/07/24 capsule,delayed release (Nexium) fluticasone propionate 50 2 spray intranasal DAILY PRN 07/25/24 08/07/24 mcg/actuation nasal Allergy Symptoms spray,suspension magnesium oxide 400 mg PO DAILY 07/25/24 08/07/24 mirabegron 50 mg tablet,extended 50 mg PO DAILY 07/25/24 08/07/24 release 24 hr (Myrbetriq) eszopiclone 3 mg tablet (Lunesta) 3 mg PO BEDTIME 08/06/24 08/07/24 sennosides 8.6 mg tablet (senna) 17.2 mg PO BEDTIME PRN constipation 08/12/24 08/12/24 tamsulosin 0.4 mg capsule 0.4 mg PO BEDTIME 08/12/24 08/12/24 Previous Rx's ?Medication ?Instructions ?Recorded cholecalciferol (vitamin D3) 125 125 mcg PO DAILY #90 caps 05/30/24 mcg (5,000 unit) capsule methylcellulose (laxative) 500 mg 500 mg PO DAILY #90 tabs 05/30/24 tablet (Citrucel) magnesium hydroxide 400 mg/5 mL 10 ml PO DAILY PRN constipation 07/25/24 oral suspension (Milk of Magnesia) #355 mL lactulose 10 gram/15 mL oral 20 g (30 mL) PO BID #1,200 mL 08/01/24 solution mesalamine 0.375 gram 1.5 g (4 x 0.375 gram) PO DAILY 08/01/24 capsule,extended release 24 hr #90 caps ondansetron 4 mg disintegrating 4 mg PO Q8H PRN nausea and 08/01/24 tablet vomiting #30 tabs pramoxine 1 % topical foam 1 appl SD BID #15 grams 08/01/24 amoxicillin 875 mg-potassium 1 tab PO BID #10 tabs 08/20/24 clavulanate 125 mg tablet docusate sodium 100 mg capsule 100 mg PO BID #60 caps 08/20/24 (Colace) oxycodone 5 mg tablet 5 mg PO Q6H PRN pain (scale score 08/20/24 7-10) #25 tabs polyethylene glycol 3350 17 17 g PO DAILY #510 grams 08/20/24 gram/dose oral powder (Miralax) Allergies Allergy/AdvReac Type Severity Reaction Status Date / Time propofol Allergy Intermediate Itching Verified 08/21/24 00:00 morphine Allergy Mild Itching Verified 08/21/24 00:00 Review of Systems Review of Systems: Yes all other systems are reviewed and are negative Constitutional: Constitutional: Denies fatigue and Denies fever(s) Cardiovascular: Cardiovascular: Denies chest pain and Denies dyspnea Respiratory: Respiratory: Denies cough and Denies dyspnea Gastrointestinal: Gastrointestinal: Reports abdominal pain, Denies constipation, Reports nausea and Reports vomiting Genitourinary: Genitourinary: Denies dysuria Endocrine: Endocrine: Denies fatigue [facility] Past Medical History Attestation statement: The following information was validated with the patient. Medical History (Updated 08/21/24 @ 08:18 by Jesus Allen MD) Postprocedural seroma of skin and subcutaneous tissue following other procedure Colostomy in place Hx of flexible sigmoidoscopy Proctosigmoiditis Stricture of sigmoid colon Colon wall thickening Obesity, Class II, BMI 35-39.9 IBS (irritable bowel syndrome) History of colitis Gastric ulcer Interstitial cystitis Occipital neuralgia of right side History of suicidal ideation Anxiety Agoraphobia MDD (major depressive disorder) PTSD (post-traumatic stress disorder) Surgical History (Updated 08/15/24 @ 08:54 by Faraz Diez PA-C) Hx of colonoscopy Hx of section H/O: hysterectomy Hx of cholecystectomy (~12/2022) Family History Family History Father Prostate cancer Maternal Uncle Colon cancer Maternal Grandmother Breast cancer Social History Social History Household Members: Spouse and Children Housing: House Do you presently have visiting nurse or other home services: Yes (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) 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 Patient Tobacco Use Status: Never used Tobacco service: No Physical Exam ED Vital Signs: Vital Signs - 24 hr 08/20/24 23:53 08/21/24 02:11 08/21/24 04:24 Temperature 98.6 F Pulse Rate 91 88 Respiratory Rate 16 18 17 Blood Pressure 150/92 H 109/51 L Pulse Oximetry 98 95 Oxygen Delivery Method Room Air Room Air 08/21/24 07:55 Temperature 97.6 F Pulse Rate 88 Respiratory Rate 17 Blood Pressure 109/51 L Pulse Oximetry 95 Oxygen Delivery Method Room Air BMI result Body Mass Index 39.0 Const Other: Alert, appears older than stated age Orientation/consciousness: patient oriented x3 Resp Effort & Inspection: normal respiratory effort Cardio Other: Normal peripheral perfusion GI Other: Abdomen is soft, nondistended, obese, mild generalized tenderness without guarding, there appears to be a mixture of serosanguineous / purulent drainage from incision site adjacent to the ostomy, somewhat foul smelling Skin Other: Warm dry no rash Neuro General: patient oriented x3, no focal motor deficits and CN's II-XI intact bilaterally Psych Other: Cooperative Course Course Course Narrative: Signed out to night team pending CT scan and final disposition Reevaluation(s) Reevaluation #1: CT scan and patient seen and cleared by Dr. Allen. She can follow up as outpatient. [place]OL[place] 08/21/24 741am Medications Administered Discontinued Medications Generic Name Dose Route Start Last Admin Trade Name Jasonq PRN Reason Stop Dose Admin Hydromorphone HCl 1 mg 08/21/24 01:56 08/21/24 02:11 Hydromorphone Hcl 1 Mg/Ml Syringe IVPUSH 08/21/24 01:57 1 mg ONCE ONE Administration Protocol Sodium Chloride 1,000 mls @ 999 mls/hr 08/21/24 02:00 08/21/24 04:20 Ns IV 08/21/24 03:00 Infused .Q1H1M MARIAH Infusion Iohexol 85 ml 08/21/24 02:34 08/21/24 02:34 Iohexol 350 Mg/Ml 100 Ml Infus..Btl IV 08/21/24 02:35 85 ml ONCE ONE Administration Ondansetron HCl 4 mg 08/21/24 01:49 08/21/24 02:11 Ondansetron Hcl 4 Mg/2 Ml Vial IVPUSH 08/21/24 01:50 4 mg ONCE ONE Administration Procedures Procedure Narrative Procedure Narrative: Ultrasound-guided IV 20 gauge 1.16 in placed in left AC, adequate blood return, flushes well secured with Tegaderm Medical Decision Making Medical Decision Making MDM Narrative: 43-year-old female with a history of chronic constipation with diarrhea,and bowel incontinence, now s/p sigmoid colostomy 08/12 Dr. Allen, IBS, morbid obesity, right-sided occipital neuralgia, chronic interstitial cystitis, anxiety and depression presents with abdominal pain. Patient developed a fever with worsening abdominal pain POD 4, found to have a small fluid collection under the incision site, found to be a seroma, a wound culture was obtained, the patient was placed on antibiotics throughout the remainder of her hospital course, and discharged on Augmentin today 08/20. Patient states she was eager to be discharged home. Overnight, the patient was up to use the bathroom, she states she has been having new worsening drainage from the incision site where the seroma was drained. Her abdominal pain and nausea are poorly controlled; patient vomited here in the emergency department upon arrival. She continues to have appropriate output from the ostomy. Denies new onset fever. Problem: Recent surgery History: Per patient I have considered the following differential diagnoses: Reaccumulation of abdominal wall abscess, intractable pain nausea, postsurgical complication, bowel obstruction Plan: There is active drainage from her abdominal wall, it appears to be a mixture of serosanguineous fluid and/or pus, it is foul smelling and there was an opaque quality to the fluid. We will obtain a CT scan of the abdomen. Repeating screening labs, she has not had labs in several days, giving Dilaudid Zofran and IV fluid. I do not feel she is obstructed, she has had appropriate output from the ostomy, she is not objectively distended. Perhaps the patient left from her surgical admission to soon, she is alluding to the fact that she was not supposed to be discharged yesterday, however she insisted that she was well enough to return home, and felt confident she could manage her pain with oral medications. I have independently reviewed the following tests: Labs: No leukocytosis, not anemic, inflammatory markers improved from 3 days ago, not , no electrolyte abnormalities, urine not infected I discussed the CT findings with Dr. Allen from surgery. Patient may not need to be admitted. However, we gave the patient the option of waiting to be seen early in the morning by Dr. Allen, patient states that she would prefer to stay here until Dr. Allen sees her Differential Diagnosis Differential Diagnoses: The differential diagnosis associated with the presentation includes (Abscess, seroma) Admission/Observation Consideration of admission/observation: Escalation of care including admission/observation considered Consult Healthcare Provider Management of the patient was discussed with: Scout Leaser Lab Data [facility] Lab Attestation statement: I reviewed the patient's lab results. 08/21/24 01:35 08/21/24 01:35 Labs: Lab Results 08/21/24 08/21/24 Range/Units 01:35 02:00 WBC 9.0 (4.8-10.8) X10*3/uL RBC 4.10 L (4.20-5.50) X10*6/uL Hgb 11.2 L (12.0-16.0) g/dl Hct 32.6 L (37.0-47.0) % MCV 79.5 L (80.0-98.0) fL MCH 27.3 (27.0-33.0) pg MCHC 34.4 (31.0-35.0) g/dl RDW 13.6 (11.0-16.0) % Plt Count 453 H (160-400) X10*3/uL MPV 8.9 L (9.4-12.3) fL Immature Gran % (Auto) 0.8 H (0.0-0.4) % Neut % (Auto) 62.7 (45-73) % Lymph % (Auto) 24.6 (20-40) % [place]ayer % (Auto) 5.5 (2-11) % Eos % (Auto) 6.0 H (0-4) % Baso % (Auto) 0.4 (0-2) % Lymph # (Auto) 2.2 (1.2-4.9) X10*3/uL [place] # (Auto) 0.5 (0.1-1.2) X10*3/uL Eos # (Auto) 0.5 H (0.0-0.4) X10*3/uL Baso # (Auto) 0.0 (0.0-0.2) X10*3/uL Abs Immat Gran (auto) 0.07 H (0.00-0.03) X10*3/uL Absolute Neuts (auto) 5.6 (2.0-8.3) x10*3/uL Absolute Nucleated RBC 0.000 (0.0-0.012) X10*3/uL Nucleated RBC % (auto) 0.0 (0.0-0.2) /100WBC ESR 84 H (0-20) MM/HR Sodium 140 (135-145) mmol/L Potassium 3.9 (3.3-5.1) mmol/L Chloride 105 (96-108) mmol/L Carbon Dioxide 25 (22-29) mmol/L Anion Gap 14 (12-20) BUN 6 L (9-16) mg/dL Creatinine 0.76 (0.5-1.4) mg/dL Estim Creat Clear Calc 108.5 Estimated GFR > 60 Random Glucose 114 (60-115) mg/dL Calcium 9.0 (8.4-10.2) mg/dL Magnesium 2.2 (1.6-2.6) mg/dL Total Bilirubin 0.2 (0.0-1.0) mg/dL AST 19 (5-31) U/L ALT 12 (0-31) U/L Alkaline Phosphatase 110 (39-117) U/L C-Reactive Protein 6.20 H (< or = 0.50) mg/dL Total Protein 7.0 (6.5-8.0) g/dL Albumin 3.8 (3.5-5.0) g/dL Beta HCG, Quant < 2 mIU/mL Urine Color Yellow Urine Appearance Clear Urine pH 7.5 (5.0-9.0) Ur Specific [place] <= 1.005 (1.005-1.025) Urine Protein Negative (Neg-Trace) mg/dL Urine Glucose (UA) Negative (Negative) mg/dL Urine Ketones Negative (Negative) mg/dL Urine Blood Negative (Negative) Urine Nitrite Negative (Negative) Ur Leukocyte Esterase Negative (Negative) Independent Interpretation I performed an independent interpretation of an: CT Scan Radiology Impression Discussion of test interpretation with radiology: I have reviewed the radiologist's reading. Radiologist Impression: 1. Increasing left paramidline infraumbilical abdominal wall fluid collection. This could be infected fluid. Recommend further clinical investigation. 2. There is increased fluid in the colon proximal to a left lower quadrant colostomy site. No evidence of obstruction. Etiology indeterminate. 3. Small bilateral pleural effusions similar to the prior. Discharge Plan Discharge Clinical Impression: Abdominal pain Qualifiers: Abdominal location: generalized Qualified Code(s): R10.84 - Generalized abdominal pain Abdominal wall seroma Qualifiers: Encounter type: initial encounter Qualified Code(s): S30.1XXA - Contusion of abdominal wall, initial encounter Patient Disposition: Home, Self-Care Instructions: Abdominal Pain (ED), Seroma (DC) Additional Instructions: return for redness, yellow drainage, fevers, worsening pain or any other concerns please follow up with your surgeon as discussed Prescriptions: No Action magnesium hydroxide [Milk of Magnesia] 400 mg/5 mL suspension 10 ml PO DAILY PRN (Reason: constipation) Qty: 355 0RF valacyclovir 500 mg tablet 500 mg PO DAILY Trintellix 20 mg tablet 20 mg PO DAILY lamotrigine 200 mg tablet 200 mg PO DAILY Rx Instructions: 200mg in morning, 25mg at night lamotrigine 25 mg tablet 50 mg PO BEDTIME Rx Instructions: 200mg in morning, 25mg at night sennosides [senna] 8.6 mg tablet 17.2 mg PO BEDTIME PRN (Reason: constipation) tamsulosin 0.4 mg capsule 0.4 mg PO BEDTIME docusate sodium [Colace] 100 mg capsule 100 mg PO BID Qty: 60 3RF polyethylene glycol 3350 [Miralax] 17 gram/dose powder 17 g PO DAILY Qty: 510 2RF amoxicillin-pot clavulanate 875-125 mg tablet 1 tab PO BID Qty: 10 0RF oxycodone 5 mg tablet 5 mg PO Q6H PRN (Reason: pain (scale score 7-10)) Qty: 25 0RF Rx Instructions: Partial Fill upon patient request. bisacodyl 5 mg tablet,delayed release (DR/EC) 10 mg PO BEDTIME magnesium oxide 400 mg magnesium capsule 400 mg PO DAILY mirabegron [Myrbetriq] 50 mg tablet extended release 24 hr 50 mg PO DAILY fluticasone propionate 50 mcg/actuation [place],Suspension 2 spray INTRANASAL DAILY PRN (Reason: Allergy Symptoms) Rx Instructions: administer into each nostril esomeprazole magnesium [Nexium] 40 mg Capsule,Delayed Release(Dr/Ec) 40 mg PO DAILY lactulose 10 gram/15 mL Solution 20 g PO BID Qty: 1200 0RF pramoxine 1 % Foam 1 appl SD BID Qty: 15 2RF mesalamine 0.375 gram Capsule,Extended Release 24hr 1.5 g PO DAILY Qty: 90 0RF ondansetron 4 mg tablet,disintegrating 4 mg PO Q8H PRN (Reason: nausea and vomiting) Qty: 30 1RF famotidine 20 mg tablet 20 mg PO BID hydroxyzine HCl 25 mg tablet 25 mg PO BEDTIME clonazepam 1 mg tablet 1 mg PO TID cholecalciferol (vitamin D3) 125 mcg (5,000 unit) capsule 125 mcg PO DAILY Qty: 90 3RF Citrucel 500 mg tablet 500 mg PO DAILY Qty: 90 2RF Rx Instructions: take it with full glass of water eszopiclone [Lunesta] 3 mg tablet 3 mg PO BEDTIME Referrals: [facility] General Surgeons [Provider Group] Interventions: ED Discharge Assessment Last Done: 08/21/24 07:55 Discharge Date/Time: 08/21/24 08:17 Print Language: Luxembourgish
[2024-08-21 01:41] LABS: Basophils Percent Auto 0.4 % (0-2); Eosinophils Absolute Auto 0.5 X10*3/uL (0.0-0.4); Hematocrit 32.6 % (37.0-47.0); Hemoglobin 11.2 g/dl (12.0-16.0); Imm Gran Abs Auto 0.07 X10*3/uL (0.00-0.03); Imm Gran Pct Auto 0.8 % (0.0-0.4); Lymphocytes Absolute Auto 2.2 X10*3/uL (1.2-4.9); Lymphocytes Percent Auto 24.6 % (20-40); MANUAL DIFF FLAG NO; Mean Corpuscular HGB Conc 34.4 g/dl (31.0-35.0); Mean Corpuscular Hemoglobin 27.3 pg (27.0-33.0); Mean Corpuscular Volume 79.5 fL (80.0-98.0); Mean Platelet Volume 8.9 fL (9.4-12.3); Monocytes Absolute Auto 0.5 X10*3/uL (0.1-1.2); Monocytes Percent Auto 5.5 % (2-11); Neutrophils Absolute Auto 5.6 x10*3/uL (2.0-8.3); Neutrophils Percent Auto 62.7 % (45-73); Platelet Count 453 X10*3/uL (160-400); Red Cell Distribution Width 13.6 % (11.0-16.0)
[2024-08-21 02:06] LABS: Appearance Urine Clear; Color Urine Yellow; Glucose Urine UA Negative (Negative); Leukocyte Esterase Urine Negative (Negative); Nitrite Urine Negative (Negative); PH 7.5 (5.0-9.0); Specific Gravity - Urine <= 1.005 (1.005-1.025); Urine Blood Negative (Negative); Urine Ketones Negative (Negative); Urine Protein Negative (Neg-Trace)
[2024-08-21 02:09] LABS: Alanine Aminotransferase 12 U/L (0-31); Albumin Level 3.8 g/dL (3.5-5.0); Alkaline Phosphatase 110 U/L (39-117); Anion Gap 14 (12-20); Aspartate Amino Transferase 19 U/L (5-31); Bilirubin Total 0.2 mg/dL (0.0-1.0); Blood Urea Nitrogen 6 mg/dL (9-16); Carbon Dioxide 25 mmol/L (22-29); Chloride 105 mmol/L (96-108); Creatinine Clr Calc Pharmacy 108.5; Estimated Glomerular Filt Rate > 60; Glucose Random 114 mg/dL (60-115); HCG Quantitative < 2 mIU/mL; Magnesium 2.2 mg/dL (1.6-2.6); Potassium 3.9 mmol/L (3.3-5.1); Sodium 140 mmol/L (135-145)
[2024-08-21 02:11] VITALS: RESP 18
[2024-08-21] MEDS: HYDROmorphone HCl 1 MG/ML SYRINGE IVPUSH (02:11)
[2024-08-21] MEDS: ondansetron HCL 4 MG/2 ML VIAL IVPUSH (02:11)
[2024-08-21] MEDS: 0.9 % Sodium Chloride 1,000 ML 999 ML IV (02:12)
[2024-08-21 02:15] LABS: Erythrocyte Sedimentation Rate 84 MM/HR (0-20)
[2024-08-21] MEDS: iohexoL 350 MG/ML 100 ML INFUS..BTL 85 ML IV (02:34)
[2024-08-21 04:24] VITALS: BP 109/51; PULSE 88; RESP 17; O2SAT 95
[2024-08-21 07:55] VITALS: BP 109/51; PULSE 88; RESP 17; TEMP 36.4; O2SAT 95
--- NOTE | 2024-08-21 08:13 | P.CONGS_ITS ---
History of Present Illness Consult details Consult date: 08/21/24 Narrative: [age] year old female who had a diverting end colostomy last August 12, 2024, came to the ER last night because of drainage from the incision. She was actually just discharged yesterday morning. She says that she noticed large amounts of dark colored thin fluid coming out of the report of an incision when she was getting out of the bed last night. She therefore came to the emergency room because of this I actually had open up the incision last August 17, 2024 because of the large seroma fluid collection. Her CAT scan in the ED early this morning showed the same collection in the midline incision . She denied any fever. Her stoma has been working well. She denied any significant pain. She had the colostomy done because of the a long history of GI complaints with constipation, diarrhea with incontinence. There was a suggestion of a sigmoid stricture on previous studies but this was not seen intraoperatively. Review of Systems 2 Constitutional: Constitutional: Denies chills and Denies fever(s) Cardiovascular: Cardiovascular: Denies chest pain Respiratory: Respiratory: Denies cough Gastrointestinal: Gastrointestinal: Denies abdominal pain Comments: Colostomy functioning well Genitourinary: Comments: She has a long history of dysuria and frequency PMFSH Past Medical History Medical History (Updated 08/22/24 @ 00:00 by Wilder Haywood) Postprocedural seroma of skin and subcutaneous tissue following other procedure Colostomy in place Hx of flexible sigmoidoscopy Proctosigmoiditis Stricture of sigmoid colon Colon wall thickening Obesity, Class II, BMI 35-39.9 IBS (irritable bowel syndrome) History of colitis Gastric ulcer Interstitial cystitis Occipital neuralgia of right side History of suicidal ideation Anxiety Agoraphobia MDD (major depressive disorder) PTSD (post-traumatic stress disorder) Family History Family History Father Prostate cancer Maternal Uncle Colon cancer Maternal Grandmother Breast cancer Surgical History Surgical History (Updated 08/15/24 @ 08:54 by Faraz Diez PA-C) Hx of colonoscopy Hx of section H/O: hysterectomy Hx of cholecystectomy (~12/2022) Social History Social History Household Members: Spouse and Children Housing: House Do you presently have visiting nurse or other home services: Yes (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) 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 Patient Tobacco Use Status: Never used Tobacco service: No Meds Allergies Allergy/AdvReac Type Severity Reaction Status Date / Time propofol Allergy Intermediate Itching Verified 08/21/24 00:00 morphine Allergy Mild Itching Verified 08/21/24 00:00 Home Medications ?Medication ?Instructions ?Recorded ?Confirmed ?Last Taken ?Type lamotrigine 200 mg tablet 200 mg PO DAILY 01/02/23 08/07/24 07/25/24 History valacyclovir 500 mg tablet 500 mg PO DAILY 01/02/23 08/07/24 07/25/24 History vortioxetine 20 mg tablet 20 mg PO DAILY 01/02/23 08/07/24 07/25/24 History (Trintellix) clonazepam 1 mg tablet 1 mg PO TID 01/08/24 08/07/24 07/25/24 History famotidine 20 mg tablet 20 mg PO BID 01/08/24 08/07/24 07/25/24 History hydroxyzine HCl 25 mg tablet 25 mg PO BEDTIME 01/08/24 08/07/24 07/24/24 History lamotrigine 25 mg tablet 50 mg PO BEDTIME 01/08/24 08/07/24 07/24/24 History bisacodyl 5 mg tablet,delayed 10 mg PO BEDTIME 07/25/24 08/12/24 07/25/24 History release esomeprazole magnesium 40 mg 40 mg PO DAILY 07/25/24 08/07/24 07/25/24 History capsule,delayed release (Nexium) fluticasone propionate 50 2 spray intranasal DAILY PRN 07/25/24 08/07/24 Unknown History mcg/actuation nasal Allergy Symptoms spray,suspension magnesium oxide 400 mg PO DAILY 07/25/24 08/07/24 07/25/24 History mirabegron 50 mg tablet,extended 50 mg PO DAILY 07/25/24 08/07/24 07/25/24 History release 24 hr (Myrbetriq) eszopiclone 3 mg tablet (Lunesta) 3 mg PO BEDTIME 08/06/24 08/07/24 Unknown History sennosides 8.6 mg tablet (senna) 17.2 mg PO BEDTIME PRN constipation 08/12/24 08/12/24 Unknown History tamsulosin 0.4 mg capsule 0.4 mg PO BEDTIME 08/12/24 08/12/24 Unknown History Physical Exam 2 Vital Signs: Vital Signs: Last Vital Signs Temp 97.6 F 08/21/24 07:55 Pulse 88 08/21/24 07:55 Resp 17 08/21/24 07:55 BP 109/51 L 08/21/24 07:55 Pulse Ox 95 08/21/24 07:55 O2 Del Method Room Air 08/21/24 07:55 BMI result Body Mass Index 39.0 Const: Other: Looks well General: comfortable and no acute distress Nutritional Appearance: obese Resp: Effort & Inspection: normal respiratory effort Cardio: Rate: regular rate GI: Other: Midline incision is actually well healed, with a small open area in the lower most aspect, currently not draining actively; there is no cellulitis, there is no fluctuance, colostomy with very good output, no cellulitic changes surrounding the stoma Palpation (GI): Soft to palpation, not firm, nontender and no guarding Results Labs 08/21/24 01:35 08/21/24 01:35 Labs: Abnormal lab results 08/21/24 Range/Units 01:35 RBC 4.10 L (4.20-5.50) X10*6/uL Hgb 11.2 L (12.0-16.0) g/dl Hct 32.6 L (37.0-47.0) % MCV 79.5 L (80.0-98.0) fL Plt Count 453 H (160-400) X10*3/uL MPV 8.9 L (9.4-12.3) fL Immature Gran % (Auto) 0.8 H (0.0-0.4) % Eos % (Auto) 6.0 H (0-4) % Eos # (Auto) 0.5 H (0.0-0.4) X10*3/uL Abs Immat Gran (auto) 0.07 H (0.00-0.03) X10*3/uL ESR 84 H (0-20) MM/HR BUN 6 L (9-16) mg/dL C-Reactive Protein 6.20 H (< or = 0.50) mg/dL Short CBC 08/21/24 Range/Units 01:35 WBC 9.0 (4.8-10.8) X10*3/uL Hgb 11.2 L (12.0-16.0) g/dl Hct 32.6 L (37.0-47.0) % Plt Count 453 H (160-400) X10*3/uL BMP 08/21/24 01:35 Sodium 140 Potassium 3.9 Chloride 105 Carbon Dioxide 25 BUN 6 L Creatinine 0.76 Calcium 9.0 Liver Function 08/21/24 Range/Units 01:35 Total Bilirubin 0.2 (0.0-1.0) mg/dL AST 19 (5-31) U/L ALT 12 (0-31) U/L Alkaline Phosphatase 110 (39-117) U/L Albumin 3.8 (3.5-5.0) g/dL Urine 08/21/24 Range/Units 02:00 Urine Color Yellow Urine Appearance Clear Urine pH 7.5 (5.0-9.0) Ur Specific [place] <= 1.005 (1.005-1.025) Urine Protein Negative (Neg-Trace) mg/dL Urine Glucose (UA) Negative (Negative) mg/dL All other labs normal. Assessment and Plan (1) Postprocedural seroma of skin and subcutaneous tissue following other procedure: Status: Acute Review of her CAT scan and overall clinical findings show this postop seroma under the incision in the midline. She does have a thick amount of subcutaneous fat so she is prone to this. I explained this to her and I advised her to promote drainage by changing positions regularly and applying pressure on the lower part of her pannus to allow drainage of the fluid through the open incision. She is to continue with her oral antibiotics Her stoma is functioning well. Clinically she looks well. She has no leukocytosis. She is comfortable with the plan. She understands wound care for this. I will see her in the office for follow-up visit. Procedures Date of Service Date of Service: 08/26/24
== END 2024-08-21 08:17 | disposition home or self-care (01) ==
PROVIDERS: Physician Assistant Medical; Emergency Provider Emergency Medicine
DX: R10.84 Generalized abdominal pain (principal); K91.872 Postprocedural seroma of a digestive system organ or structure following a digestive system procedure; K94.09 Other complications of colostomy; Y84.9 Medical procedure, unspecified as the cause of abnormal reaction of the patient, or of later complication, without mention of misadventure at the time of the procedure; Y92.019 Unspecified place in single-family (private) house as the place of occurrence of the external cause; R11.2 Nausea with vomiting, unspecified; Z93.3 Colostomy status
CPT/HCPCS: 36410; 36415; 74177; 80053; 81003; 83735; 84702; 85025; 85652; 86140; 96361; 96374; 96375; 99284; J1171; J2405; Q9967

== ENCOUNTER → 2024-08-21 00:04 | Outpatient (BNV) | payer OTHER, SELFPAY | PROVIDERS: Emergency Provider Emergency Medicine; Visit Provider Surgery | DX: L76.34 Postprocedural seroma of skin and subcutaneous tissue following other procedure (principal) | CPT/HCPCS: 99024; 99212 ==

== ENCOUNTER → 2024-08-21 01:39 | Outpatient (BNV) | payer OTHER, SELFPAY | PROVIDERS: Emergency Provider Emergency Medicine; Visit Provider Radiology Diagnostic Radiology | DX: J90 Pleural effusion, not elsewhere classified (principal) | CPT/HCPCS: 74177 ==

== ENCOUNTER 2024-08-27 12:02 | Outpatient (AMB) | payer OTHER, SELFPAY ==
--- NOTE | 2024-08-27 12:04 | A.OFFVIS_ITS ---
Vital Signs 08/27/24 12:13 Height 5 ft 3 in Weight 226 lb BMI 40.0 BP 125/93 H Blood Pressure Location Rt brachial Position Sitting Pulse 98 Intake Visit Reasons: S/P colostomy creation Intake Note: Patient here s/p colostomy creation. Stoma working well. Patient c/o: ostomy site redness, irritated. Requesting bags today. Procedure: Hand assisted laparoscopic end sigmoid colostomy~ Dr. Allen/ 08-12-2024 Car Framer Required: No Accompanied by: Spouse Allergies propofol Allergy (Intermediate, Verified 08/27/24 12:10) Itching morphine Allergy (Mild, Verified 08/27/24 12:10) Itching HPI HPI S/P colostomy creation: Details: She had undergone a diverting end colostomy from the sigmoid colon, hand assisted laparoscopic, last August 12, 2024. This was done in view of a question of stricture in the sigmoid, along with a chronic complaints of severe constipation and diarrhea with incontinence. She had stated that she would feel better with a colostomy rather than wearing diapers. She tolerated the procedure well. She was discharged on postop day number 7 as she it took a while for her to have actual stools from her colostomy site. She also had a seroma which I had drained on the lower part of the incision. She has a thick amount of subcutaneous fat because of her obesity. Stoma has been functioning well. She did have some issues with the stoma appliance and she currently is using a 2 piece convex which she says has been working very well. [facility] Medical History Postprocedural seroma of skin and subcutaneous tissue following other procedure Colostomy in place Hx of flexible sigmoidoscopy Proctosigmoiditis Stricture of sigmoid colon Colon wall thickening Obesity, Class II, BMI 35-39.9 IBS (irritable bowel syndrome) History of colitis Gastric ulcer Interstitial cystitis Occipital neuralgia of right side History of suicidal ideation Anxiety Agoraphobia MDD (major depressive disorder) PTSD (post-traumatic stress disorder) Surgical History Hx of colonoscopy Hx of section H/O: hysterectomy Hx of cholecystectomy (~12/2022) Family History Father Prostate cancer Maternal Uncle Colon cancer Maternal Grandmother Breast cancer Social History Household Members: Spouse and Children Housing: House Do you presently have visiting nurse or other home services: Yes (VACCINE MANAGER to help with ADLs) 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 Patient Tobacco Use Status: Never used Tobacco service: No Review of Systems Const Denies chills and Denies fever(s) Card Denies chest pain Resp Denies cough GI Details: Has colostomy which has been working well Physical Exam Const General: comfortable and no acute distress Nutritional Appearance: obese Resp Effort & Inspection: normal respiratory effort GI Other: Ileostomy functioning well, midline incision well healed although there is note of a small open area in the inferior aspect which has has scanty drainage Palpation (GI): Soft to palpation, not firm, nontender and no guarding Assessment & Plan Assessment & Plan (1) Colostomy in place: Code(s): Z93.3 - Colostomy status Category: Medical Plan: She had undergone hand assisted laparoscopic end-colostomy placement in view of her chronic complaints of diarrhea, constipation, incontinence as well as a question of a sigmoid stricture. There was no sigmoid stricture noted Her stoma has been functioning well. She had developed a seroma in the were part of incision which was draining but has improved I have instructed her on good wound care for this. She asked for a refill on her pain medication. I will prescribe her tramadol for now. I will see her in the office in about 3 weeks. Her was with her during the visit. Coding Level of Care Code Global (12273) Diagnoses Colostomy in place Z93.3
[2024-08-27 12:13] VITALS: BP 125/93; PULSE 98; BMI 40.0
--- OUTSIDE RECORDS SUMMARY | 2024-08-27 12:47 | XMS_ITS | Clinical Summary ---
Author Organization [facility] Address [address] [place] [address] Care Team Providers Care Necktie Turner Name Role Phone Nori Posey MD Primary Care Provider [phone] Allergies Active Allergy Reactions Criticality Noted Date Comments [place] 08/30/2023 Medications Medication Sig Dispensed Refills Start [...] age to complete this topic Care Teams Necktie Turner Relationship Specialty Start Date End Date Nori Posey MD [address] [place] [id number] PCP - General Internal Medicine 08/01/23
== END 2024-08-27 12:32 | disposition home or self-care (01) ==
LOC: HO.HGS 12:02
PROVIDERS: Visit Provider Surgery
DX: Z93.3 Colostomy status (principal)
CPT/HCPCS: 99024

== ENCOUNTER → 2024-08-27 12:02 | Outpatient (BNVA) | payer OTHER, SELFPAY | PROVIDERS: Visit Provider Surgery | DX: Z48.815 Encounter for surgical aftercare following surgery on the digestive system (principal); Z93.3 Colostomy status | CPT/HCPCS: 99212 ==

== ENCOUNTER 2024-09-08 21:52 | Emergency (ER) | payer OTHER, SELFPAY ==
--- NOTE | ~2024-09-08 | CT_ITS ---
CLINICAL HISTORY: fecal impaction Exam: CT abdomen and pelvis without intravenous contrast. Comparison: August 21, 2024. Findings: Study limited by lack of intravenous contrast. Specifically, evaluation of the vascular tree, solid abdominal organs, and gastrointestinal tract be limited without IV contrast administration. CT abdomen: Lung bases are clear. No acute bony lesions. Gallbladder is surgically absent. Unenhanced liver, spleen, pancreas, adrenal glands, and kidneys are unremarkable for acute findings. Large amount of ingested contents within the stomach. No dilated small bowel. No free fluid or free air. CT pelvis: Ostomy is again seen within the left lower quadrant. Interval decrease in size of the fluid collection along the presumed anterior abdominal wall incision site caudad to the umbilicus. This now measures 2.0 x 2.5 cm in size when it previously measured 7.3 x 3.2 cm in size. No free air is seen within the pelvis. Urinary bladder is moderately distended. Impression: 1. Interval decrease in size of the fluid collection within the subcutaneous fat of the midline incision site inferior to the umbilicus. 2. Postsurgical change as above without findings of obstruction. 3. Large amount of ingested contents within the stomach. This can be seen with recent ingestion of a meal or delayed gastric emptying. This document has been electronically signed by: Mario Collado MD on 09/09/2024 00:34:07
[2024-09-08 22:12] VITALS: BP 159/102; PULSE 96; RESP 19; TEMP 36.8; O2SAT 98; BMI 39.8
--- NOTE | 2024-09-08 22:31 | ED_ITS ---
HPI - Abdominal Pain General Chief Complaint: Abdominal Pain Stated Complaint: distoma / a lot of pain & cramping Time Seen by Provider: 09/08/24 22:30 Source: patient Mode of arrival: ambulatory Limitations: no limitations History of Present Illness ED Provider: HPI narrative: Patient is status post diverting end colostomy from the sigmoid colon on 08/12/24 patient has been constipated since then trying MiraLax milk of magnesia Dulcolax everyday for last 3 days been more constipated having very small bowel movement feel bloated and nauseated no fever no chills Related Data Home Medications ?Medication ?Instructions ?Recorded ?Confirmed lamotrigine 200 mg tablet 200 mg PO DAILY 01/02/23 08/07/24 valacyclovir 500 mg tablet 500 mg PO DAILY 01/02/23 08/07/24 vortioxetine 20 mg tablet 20 mg PO DAILY 01/02/23 08/07/24 (Trintellix) clonazepam 1 mg tablet 1 mg PO TID 01/08/24 08/07/24 famotidine 20 mg tablet 20 mg PO BID 01/08/24 08/07/24 hydroxyzine HCl 25 mg tablet 25 mg PO BEDTIME 01/08/24 08/07/24 lamotrigine 25 mg tablet 50 mg PO BEDTIME 01/08/24 08/07/24 bisacodyl 5 mg tablet,delayed 10 mg PO BEDTIME 07/25/24 08/12/24 release esomeprazole magnesium 40 mg 40 mg PO DAILY 07/25/24 08/07/24 capsule,delayed release (Nexium) fluticasone propionate 50 2 spray intranasal DAILY PRN 07/25/24 08/07/24 mcg/actuation nasal Allergy Symptoms spray,suspension magnesium oxide 400 mg PO DAILY 07/25/24 08/07/24 mirabegron 50 mg tablet,extended 50 mg PO DAILY 07/25/24 08/07/24 release 24 hr (Myrbetriq) eszopiclone 3 mg tablet (Lunesta) 3 mg PO BEDTIME 08/06/24 08/07/24 sennosides 8.6 mg tablet (senna) 17.2 mg PO BEDTIME PRN constipation 08/12/24 08/12/24 tamsulosin 0.4 mg capsule 0.4 mg PO BEDTIME 08/12/24 08/12/24 Previous Rx's ?Medication ?Instructions ?Recorded cholecalciferol (vitamin D3) 125 125 mcg PO DAILY #90 caps 05/30/24 mcg (5,000 unit) capsule methylcellulose (laxative) 500 mg 500 mg PO DAILY #90 tabs 05/30/24 tablet (Citrucel) lactulose 10 gram/15 mL oral 20 g (30 mL) PO BID #1,200 mL 08/01/24 solution mesalamine 0.375 gram 1.5 g (4 x 0.375 gram) PO DAILY 08/01/24 capsule,extended release 24 hr #90 caps ondansetron 4 mg disintegrating 4 mg PO Q8H PRN nausea and 08/01/24 tablet vomiting #30 tabs pramoxine 1 % topical foam 1 appl [place] BID #15 grams 08/01/24 docusate sodium 100 mg capsule 100 mg PO BID #60 caps 08/20/24 (Colace) polyethylene glycol 3350 17 17 g PO DAILY #510 grams 08/20/24 gram/dose oral powder (Miralax) tramadol 50 mg tablet 50 mg PO TID PRN pain #30 tabs 08/27/24 metoclopramide HCl 10 mg tablet 10 mg PO Q6H PRN nausea and 09/09/24 (Reglan) vomiting #30 tabs Allergies Allergy/AdvReac Type Severity Reaction Status Date / Time propofol Allergy Intermediate Itching Verified 09/08/24 22:17 morphine Allergy Mild Itching Verified 09/08/24 22:17 Review of Systems Review of Systems Yes all other systems are reviewed and are negative PMFSH Past Medical History Medical History Postprocedural seroma of skin and subcutaneous tissue following other procedure Colostomy in place Hx of flexible sigmoidoscopy Proctosigmoiditis Stricture of sigmoid colon Colon wall thickening Obesity, Class II, BMI 35-39.9 IBS (irritable bowel syndrome) History of colitis Gastric ulcer Interstitial cystitis Occipital neuralgia of right side History of suicidal ideation Anxiety Agoraphobia MDD (major depressive disorder) PTSD (post-traumatic stress disorder) Surgical History Hx of colonoscopy Hx of section H/O: hysterectomy Hx of cholecystectomy (~12/2022) Family History Family History Father Prostate cancer Maternal Uncle Colon cancer Maternal Grandmother Breast cancer Social History Social History Household Members: Spouse and Children Housing: House Do you presently have visiting nurse or other home services: Yes (PRODUCT ENGINEERING MANAGER to help with ADLs) 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 Patient Tobacco Use Status: Never used Tobacco Advance Directives: No Advance Directives Information Provided: No Do you have a plan to hurt others: No Plan service: No Physical Exam ED Vital Signs: Vital Signs - 24 hr 09/08/24 22:12 Temperature 98.3 F Pulse Rate 96 Respiratory Rate 19 Blood Pressure 159/102 H Pulse Oximetry 98 Oxygen Delivery Method Room Air BMI result Body Mass Index 39.8 Appearance: Alert. Oriented X3. No acute distress. Eyes: PERRLA, No Nystagmus ENT: Pharynx normal. Oral Mucosa moist Neck: Normal inspection. Neck supple. CVS: Normal heart rate and rhythm. Pulses normal. Respiratory: No respiratory distress. Equal air entry bilateral, no wheezing/rales/rhonchi Abdomen: Soft and nontender. Gaseous distended Bowel sounds are present, no mass palpable, no CVA tenderness colostomy in place with minimal stool Skin: Skin warm and dry. Normal skin color. Normal skin turgor. Extremities: No lower extremity edema. No calf tenderness Neuro: Oriented X 3. No motor deficit. No sensory deficit.No cerebellar signs , cranial nerves II-XII intact Medical Decision Making Medical Decision Making [facility] Narrative: Patient with poor output from colostomy CT scan showed lot of food material in stomach no signs of obstruction. Case discussed Dr. Allen advised to follow up as outpatient or stay in the ER to be seen in a.m. when he comes Patient has decided to go home will follow up as outpatient Differential Diagnosis Differential Diagnoses: The differential diagnosis associated with the presentation includes Bowel obstruction/constipation Admission/Observation Consideration of admission/observation: Escalation of care including admission/observation considered Consult Healthcare Provider Management of the patient was discussed with: Control Clerk Auditing Lab Data [facility] Lab Attestation statement: I reviewed the patient's lab results. 09/08/24 23:18 Labs: Lab Results 09/08/24 Range/Units 23:18 Sodium 138 (135-145) mmol/L Potassium 3.6 (3.3-5.1) mmol/L Chloride 104 (96-108) mmol/L Carbon Dioxide 25 (22-29) mmol/L Anion Gap 13 (12-20) BUN 10 (9-16) mg/dL Creatinine 0.81 (0.5-1.4) mg/dL Estim Creat Clear Calc 103.1 Estimated GFR > 60 Random Glucose 141 H (60-115) mg/dL Calcium 8.7 (8.4-10.2) mg/dL Total Bilirubin 0.2 (0.0-1.0) mg/dL AST 24 (5-31) U/L ALT 19 (0-31) U/L Alkaline Phosphatase 101 (39-117) U/L Total Protein 7.2 (6.5-8.0) g/dL Albumin 4.0 (3.5-5.0) g/dL Medications Administered Discontinued Medications Generic Name Dose Route Start Last Admin Trade Name Freq PRN Reason Stop Dose Admin Bisacodyl 10 mg 09/09/24 01:32 09/09/24 01:59 Bisacodyl 5 Mg Tablet. PO 09/09/24 01:33 10 mg ONCE ONE Administration Hydromorphone HCl 2 mg 09/08/24 23:07 09/08/24 23:38 Hydromorphone Hcl 2 Mg Tablet PO 09/08/24 23:08 2 mg ONCE ONE Administration Sodium Chloride 1,000 mls @ 999 mls/hr 09/08/24 23:05 09/09/24 00:01 Ns IV 09/09/24 00:05 999 mls/hr .Q1H1M ONE Administration Ketorolac Tromethamine 30 mg 09/09/24 01:35 09/09/24 01:59 Ketorolac Tromethamine 30 Mg/Ml Vial IVPUSH 09/09/24 01:36 30 mg ONCE ONE Administration Metoclopramide HCl 10 mg 09/09/24 01:06 09/09/24 01:59 Metoclopramide Hcl 10 Mg/2 Ml Vial IVPUSH 09/09/24 01:07 10 mg ONCE STA Administration Ondansetron HCl 4 mg 09/08/24 23:07 09/08/24 23:38 Ondansetron Odt 4 Mg Tab.Rapdis TRANSLINGU 06/09/25 23:08 4 mg ONCE ONE Administration Discharge Plan Discharge Clinical Impression: Abdominal pain Patient Disposition: Home, Self-Care Instructions: Abdominal Pain (ED) Additional Instructions: Continue to take your stool softener Follow with your surgeon/PCP Take Reglan for nausea and paresis Prescriptions: New metoclopramide HCl [Reglan] 10 mg tablet 10 mg PO Q6H PRN (Reason: nausea and vomiting) Qty: 30 0RF No Action valacyclovir 500 mg tablet 500 mg PO DAILY Trintellix 20 mg tablet 20 mg PO DAILY lamotrigine 200 mg tablet 200 mg PO DAILY Rx Instructions: 200mg in morning, 25mg at night lamotrigine 25 mg tablet 50 mg PO BEDTIME Rx Instructions: 200mg in morning, 25mg at night sennosides [senna] 8.6 mg tablet 17.2 mg PO BEDTIME PRN (Reason: constipation) tamsulosin 0.4 mg capsule 0.4 mg PO BEDTIME docusate sodium [Colace] 100 mg capsule 100 mg PO BID Qty: 60 3RF polyethylene glycol 3350 [Miralax] 17 gram/dose powder 17 g PO DAILY Qty: 510 2RF bisacodyl 5 mg tablet,delayed release (DR/EC) 10 mg PO BEDTIME magnesium oxide 400 mg magnesium capsule 400 mg PO DAILY mirabegron [Myrbetriq] 50 mg tablet extended release 24 hr 50 mg PO DAILY fluticasone propionate 50 mcg/actuation [place],Suspension 2 spray INTRANASAL DAILY PRN (Reason: Allergy Symptoms) Rx Instructions: administer into each nostril esomeprazole magnesium [Nexium] 40 mg Capsule,Delayed Release(Dr/Ec) 40 mg PO DAILY lactulose 10 gram/15 mL Solution 20 g PO BID Qty: 1200 0RF pramoxine 1 % Foam 1 appl [place] BID Qty: 15 2RF mesalamine 0.375 gram Capsule,Extended Release 24hr 1.5 g PO DAILY Qty: 90 0RF ondansetron 4 mg tablet,disintegrating 4 mg PO Q8H PRN (Reason: nausea and vomiting) Qty: 30 1RF famotidine 20 mg tablet 20 mg PO BID hydroxyzine HCl 25 mg tablet 25 mg PO BEDTIME clonazepam 1 mg tablet 1 mg PO TID cholecalciferol (vitamin D3) 125 mcg (5,000 unit) capsule 125 mcg PO DAILY Qty: 90 3RF Citrucel 500 mg tablet 500 mg PO DAILY Qty: 90 2RF Rx Instructions: take it with full glass of water eszopiclone [Lunesta] 3 mg tablet 3 mg PO BEDTIME tramadol 50 mg tablet 50 mg PO TID PRN (Reason: pain) Qty: 30 0RF Rx Instructions: Okay to take up to 2 tablets at a time Print Language: Uzbek
[2024-09-08 23:37] LABS: Alanine Aminotransferase 19 U/L (0-31); Alkaline Phosphatase 101 U/L (39-117); Anion Gap 13 (12-20); Aspartate Amino Transferase 24 U/L (5-31); Bilirubin Total 0.2 mg/dL (0.0-1.0); Blood Urea Nitrogen 10 mg/dL (9-16); Calcium 8.7 mg/dL (8.4-10.2); Carbon Dioxide 25 mmol/L (22-29); Chloride 104 mmol/L (96-108); Creatinine Clr Calc Pharmacy 103.1; Estimated Glomerular Filt Rate > 60; Glucose Random 141 mg/dL (60-115); Potassium 3.6 mmol/L (3.3-5.1); Sodium 138 mmol/L (135-145); Total Protein 7.2 g/dL (6.5-8.0)
[2024-09-08] MEDS: Ondansetron ODT 4 MG TAB.RAPDIS TRANSLINGU (23:38)
[2024-09-08] MEDS: HYDROmorphone HCl 2 MG TABLET PO (23:38)
[2024-09-09] MEDS: 0.9 % Sodium Chloride 1,000 ML 999 ML IV (00:01)
--- NOTE | 2024-09-09 00:07 | PC.NURSE ---
22g IV line placed in Left AC. PT medicated as per MAR. Fluids infusing. Safety precaution in place. Awaiting imaging results.
--- NOTE | 2024-09-09 00:50 | MHC.EDTECH ---
Pt used Call morales for assistance with the restroom, Per RN not to walk to the restroom. The patient was washed up, changed out of wet depends, and pure wick put into place.
[2024-09-09] MEDS: Ketorolac Tromethamine 30 MG/ML VIAL IVPUSH (01:59)
[2024-09-09] MEDS: Metoclopramide HCl 10 MG/2 ML VIAL IVPUSH (01:59)
[2024-09-09] MEDS: bisacodyL 5 MG TABLET.DR 10 MG PO (01:59)
[2024-09-09 03:02] VITALS: BP 0/0; PULSE 0; RESP 0; TEMP -17.7; TEMP 0; O2SAT 0
== END 2024-09-09 03:03 | disposition home or self-care (01) ==
PROVIDERS: Emergency Provider Internal Medicine
DX: F48.8 Other specified nonpsychotic mental disorders (principal); R10.2 Pelvic and perineal pain; R11.0 Nausea; R14.0 Abdominal distension (gaseous); Z79.899 Other long term (current) drug therapy
CPT/HCPCS: 36415; 74176; 80053; 96374; 96375; 99284; J1885; J2765

== ENCOUNTER → 2024-09-08 23:05 | Outpatient (BNV) | payer OTHER, SELFPAY | PROVIDERS: Emergency Provider Internal Medicine; Visit Provider Radiology Diagnostic Radiology | DX: K56.41 Fecal impaction (principal) | CPT/HCPCS: 74176 ==

== ENCOUNTER 2024-09-17 14:59 | Outpatient (AMB) | payer OTHER, SELFPAY ==
--- NOTE | 2024-09-17 15:11 | A.OFFVIS_ITS ---
Vital Signs 09/17/24 15:26 Height 5 ft 3 in Weight 227 lb BMI 40.2 BP 123/75 Blood Pressure Location Lt brachial Position Sitting Pulse 106 H Intake Visit Reasons: 3 week follow up S/P colostomy creation Intake Note: Patient here s/p 3wk colostomy creation. Reports Tramadol was not picked up. Stoma working well Patient c/o: severe bowel pain. Feels stabbing sensation at night. Diarrhea, nausea. Websphere Message Broker Developer Required: No Accompanied by: Spouse Allergies propofol Allergy (Intermediate, Verified 09/17/24 15:24) Itching morphine Allergy (Mild, Verified 09/17/24 15:24) Itching Medication List - Last Reconciled 09/17/24 by Jesus Allen MD bisacodyl 10 mg PO BEDTIME cholecalciferol (vitamin D3) 125 mcg PO DAILY clonazepam 1 mg PO TID docusate sodium (Colace) 100 mg PO BID esomeprazole magnesium 40 mg PO DAILY eszopiclone (Lunesta) 3 mg PO BEDTIME famotidine 20 mg PO BID fluticasone propionate 50 mcg/actuation 2 sprays intranasal DAILY PRN hydroxyzine HCl 25 mg PO BEDTIME lactulose 20 grams (30 mL) PO BID lamotrigine 200 mg PO DAILY lamotrigine 50 mg PO BEDTIME magnesium oxide 400 mg PO DAILY mesalamine ER 1.5 grams (4 x 0.375 gram) PO DAILY methylcellulose (laxative) (Citrucel) 500 mg PO DAILY metoclopramide HCl (Reglan) 10 mg PO Q6H PRN mirabegron ER (Myrbetriq) 50 mg PO DAILY ondansetron 4 mg PO Q8H PRN polyethylene glycol 3350 (Miralax) 17 grams PO DAILY pramoxine 1% 1 appl [place] BID sennosides (senna) 17.2 mg PO BEDTIME PRN tamsulosin 0.4 mg PO BEDTIME tramadol 50 mg PO TID PRN valacyclovir 500 mg PO DAILY vortioxetine (Trintellix) 20 mg PO DAILY HPI HPI 3 week follow up S/P colostomy creation: Details: She is here for follow-up after sigmoid colostomy for a history of chronic constipation with a question of distal obstruction. She has no new complaints. She was in the emergency room again over a week ago for what she describes as poor output from her colostomy but she was discharged from the ER. She otherwise is feeling well today. She has had good output from her colosto my. She does admit that she has some alternating diarrhea with a high-output colostomy as well as constipation. She feels well overall and seems to be happy with her colostomy. [facility] Medical History Postprocedural seroma of skin and subcutaneous tissue following other procedure Colostomy in place Hx of flexible sigmoidoscopy Proctosigmoiditis Stricture of sigmoid colon Colon wall thickening Obesity, Class II, BMI 35-39.9 IBS (irritable bowel syndrome) History of colitis Gastric ulcer Interstitial cystitis Occipital neuralgia of right side History of suicidal ideation Anxiety Agoraphobia MDD (major depressive disorder) PTSD (post-traumatic stress disorder) Surgical History Hx of colonoscopy Hx of section H/O: hysterectomy Hx of cholecystectomy (~12/2022) Family History Father Prostate cancer Maternal Uncle Colon cancer Maternal Grandmother Breast cancer Social History Household Members: Spouse and Children Housing: House Do you presently have visiting nurse or other home services: Yes (FAST FOOD TEAM MEMBER to help with ADLs) 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 Patient Tobacco Use Status: Never used Tobacco service: No Review of Systems Const Denies chills and Denies fever(s) Card Denies chest pain and Denies dyspnea Resp Denies dyspnea GI Details: Alternating diarrhea and constipation with her colostomy Physical Exam Vital Signs: Last Vital Signs Pulse 106 H 09/17/24 15:26 BP 123/75 09/17/24 15:26 BMI result Body Mass Index 40.2 Const General: comfortable and no acute distress Resp Effort & Inspection: normal respiratory effort GI Other: Midline incision well healed, colostomy with leg good output Palpation (GI): Soft to palpation, not firm, nontender and no guarding Assessment & Plan Assessment & Plan (1) Colostomy in place: Code(s): Z93.3 - Colostomy status Category: Medical Plan: She has been doing well postoperatively now. She has had a large amount of stool from her colostomy. She says that she did not have output for 4 days last week that is why she went to the ER but this has been working well since that time She seems happy and comfortable. Her colostomy appliance has been staying in place. I told her to have a follow up with her respiratory practitioner because of her alternating diarrhea and constipation with the colostomy which she says is what she had in the past as well. Coding Level of Care Code Global (08874) Diagnoses Colostomy in place Z93.3
[2024-09-17 15:26] VITALS: BP 123/75; PULSE 106; BMI 40.2
--- OUTSIDE RECORDS SUMMARY | 2024-09-17 17:17 | XMS_ITS | Clinical Summary ---
Author Organization [facility] Address [address] [place] [address] Care Team Providers Care Well Blower Name Role Phone Nori Posey MD Primary Care Provider [phone] Allergies Active Allergy Reactions Criticality Noted Date Comments [place] 08/30/2023 Medications Medication Sig Dispensed Refills Start [...] 98 01/02/2024 11:11 AM EDT Temperature 36.1 C (96.9 F) 01/02/2024 11:11 AM EDT Respiratory Rate - - Oxygen Saturation 96% [...] Screening (P ap Smear) 2002 Influenza Vaccine (Season Ended) 2024 DTap / Tdap / Td (2 - Td or Tdap) 05/04/2033 024 Pneumococcal Vaccine Aged Out No long er eligible based on patient's age to complete this topic RSV Ped < 20 months Aged Out No longe r eligible based on patient's age to complete this topic Care Teams Well Blower Relationship Specialty Start Date End Date Nori Posey MD [address] [place] [id number] PCP - General Internal Medicine 08/01/23
== END 2024-09-17 15:41 | disposition home or self-care (01) ==
LOC: HO.HGS 15:00
PROVIDERS: Visit Provider Surgery
DX: Z93.3 Colostomy status (principal)
CPT/HCPCS: 99024

== ENCOUNTER → 2024-09-17 14:59 | Outpatient (BNVA) | payer OTHER, SELFPAY | PROVIDERS: Visit Provider Surgery | DX: Z93.3 Colostomy status (principal) | CPT/HCPCS: 99212 ==

== ENCOUNTER 2024-09-19 15:46 | Emergency (ER) | payer OTHER, SELFPAY ==
--- NOTE | ~2024-09-19 | CT_ITS ---
CLINICAL HISTORY: bilateral arm numbness CT cervical spine without contrast Comparison: None Findings: No acute fracture. There is straightening of the cervical lordosis. Mild degenerative changes of the cervical spine with marginal osteophytes of the C6 and C7. There is mild narrowing of the C6-C7 intervertebral disc space. No evidence of spinal stenosis or neural foramina stenosis. The soft tissue and lung apices are unremarkable. IMPRESSION: 1. No acute findings. Mild degenerative changes of the cervical spine. This document has been electronically signed by: Claudia Simons MD on 09/19/2024 17:41:20
--- NOTE | ~2024-09-19 | CT_ITS ---
CLINICAL HISTORY: bilateral arm numbness, right leg numbness CT head without contrast Comparison: None provided Findings: No intra-axial mass, midline shift, hydrocephalus, or acute hemorrhage. No significant atrophy-like change or white matter disease. There is no sinus or mastoid fluid. The orbits are within normal limits. There is no acute fracture. IMPRESSION: 1. No acute intracranial findings. This document has been electronically signed by: Claudia Simons MD on 09/19/2024 17:36:39
[2024-09-19 15:49] VITALS: BP 148/78; PULSE 84; RESP 18; TEMP 36.8; O2SAT 96; BMI 40.2
--- NOTE | 2024-09-19 15:49 | ED_ITS ---
HPI - Neuro Symptoms/Deficit General Chief Complaint: Neuro Symptoms/Deficit Stated Complaint: Nuro sent numbness on both arms right leg/ weak Time Seen by Provider: 09/19/24 18:06 Source: patient Mode of arrival: ambulatory Limitations: no limitations History of Present Illness ED Provider: Ashtyn Oshea PA-C HPI Narrative: Patient is a 43 year old assigned female at with an extensive neurological history including occipital neuralgia and suspicion of MS for which she is followed closely by a neurologist presenting to the emergency department today with headache, bilateral mid arm numbness / pain, right sided leg pain / tingling / numbness, seeing dark circles in her vision intermittently, lethargy, and muscle spasms. Patient states that much of these symptoms are chronic for her and she usually has ativan for her muscle spasms but recently ran out. Patient states that she called her neurologist and was told to come to the ER because this flare has lasted 2 days. Patient states that she has not officially begun treatment for MS yet because her diagnosis has not yet been confirmed. Patient denies any dizziness, lightheadedness, abdominal pain, nausea, vomiting, fever, chills, blurry vision, double vision, loss of vision, chest pain, difficulty breathing, shortness of breath, back pain, night sweats, pain with urination, increased urinary frequency, increased urinary urgency, blood in her urine or stool, syncope or a near syncopal episode, recent trauma or falls, bowel incontinence, bladder incontinence, or any other complaints at this time. Related Data Home Medications ?Medication ?Instructions ?Recorded ?Confirmed lamotrigine 200 mg tablet 200 mg PO DAILY 01/02/23 valacyclovir 500 mg tablet 500 mg PO DAILY 01/02/23 vortioxetine 20 mg tablet 20 mg PO DAILY 01/02/2308/31 (Trintellix) clonazepam 1 mg tablet 1 mg PO TID 01/08/24 famotidine 20 mg tablet 20 mg PO BID 01/08/24 hydroxyzine HCl 25 mg tablet 25 mg PO BEDTIME 01/08/24 09/17/24 lamotrigine 25 mg tablet 50 mg PO BEDTIME 01/08/24 bisacodyl 5 mg tablet,delayed 10 mg PO BEDTIME 5 09/17/24 release fluticasone propionate 50 2 spray intranasal DAILY PRN 07/25/24 09/17/24 mcg/actuation nasal Allergy Symptoms spray,suspension magnesium oxide 400 mg PO DAILY 07/25/24 mirabegron 50 mg tablet,extended 50 mg PO DAILY 09/17/24 release 24 hr (Myrbetriq) eszopiclone 3 mg tablet (Lunesta) 3 mg PO BEDTIME 10/2409/17/24 sennosides 8.6 mg tablet (senna) 17.2 mg PO BEDTIME AK N constipation 08/12/24 09/17/24 tamsulosin 0.4 mg capsule 0.4 mg PO BEDTIME 08/12/24 0 09/17/24 Previous Rx's ?Medication ?Instructions ?Recorded cholecalciferol (vitamin D3) 125 125 mcg PO DAILY #90 caps 05/30/24 mcg (5,000 unit) capsule methylcellulose (laxative) 500 mg 500 mg PO DAILY #90 tabs 05/30/24 tablet (Citrucel) lactulose 10 gram/15 mL oral 20 g (30 mL) PO BID #1,20 0 mL 08/01/24 solution mesalamine 0.375 gram 1.5 g (4 x 0.375 gram) PO DA RIYA 08/01/24 capsule,extended release 24 hr #90 caps ondansetron 4 mg disintegrating 4 mg PO Q8H PRN nausea and 08/01/24 tablet vomiting #30 tabs pramoxine 1 % topical foam 1 appl [place] BID #15 grams 05/27 docusate sodium 100 mg capsule 100 mg PO BID #60 caps 08/20/24 (Colace) polyethylene glycol 3350 17 17 g PO DAILY #510 grams 0 08/20/24 gram/dose oral powder (Miralax) tramadol 50 mg tablet 50 mg PO TID PRN pain #30 ta bs 08/27/24 esomeprazole magnesium 40 mg 40 mg PO DAILY #30 caps 0 09/09/24 capsule,delayed release metoclopramide HCl 10 mg tablet 10 mg PO Q6H PRN nause a and 09/09/24 (Reglan) vomiting #30 tabs Allergies Allergy/AdvReac Type Severity Reaction Status Date / Time propofol Allergy Intermediate Itching Verified 09/19/24 15:51 morphine Allergy Mild Itching Verified 09/19/24 15:51 Review of Systems 2 Constitutional: Constitutional: Reports no additional constitutional complaints, Denies chills, Denies fever(s), Reports headache(s) and Denies night sweats Eyes: Eyes: Reports no additional eye complaints, Denies blurry vision, Denies change in vision, Denies diplopia, Denies eye discharge, Denies loss of vision and Denies eye pain Comments: seeing black spots ENT: Denies dizziness and Reports headache(s) Cardiovascular: Cardiovascular: Reports no additional cardiovascular complaints, Denies chest pain, Denies lightheadedness, Denies Loss of Consciousness and Denies dyspnea Respiratory: Respiratory: Reports no additional respiratory complaints and Denies dyspnea Gastrointestinal: Gastrointestinal: Reports no additional gastrointestinal complaints, Denies abdominal pain, Denies melena, Denies hematochezia, Denies change in bowel habits and Denies change in stool character Genitourinary: Genitourinary: Denies hematuria, Denies urinary frequency, Denies dysuria, Denies urinary incontinence, Denies urinary hesitancy and Denies urinary urgency Musculoskeletal: Musculoskeletal: Reports no additional musculoskeletal complaints Comments: bilateral mid arm numbness / tingling right leg numbness / tingling spasms of muscles Neurologic: Denies dizziness, Reports headache(s) and Denies loss of vision Psychiatric: Psychiatric: Reports no additional psychiatric complaints Endocrine: Endocrine: Reports no additional endocrine complaints Hematologic/Lymphatic: Hematologic/Lymphatic: Reports no additional hematologic/lymphatic complaints Allergic/Immunologic: Allergic/Immunologic: Reports no additional allergic/immunologic complaints [facility] Past Medical History Attestation statement: The following information was validated with the patient. Source: old records reviewed and nursing notes reviewed Medical History Postprocedural seroma of skin and subcutaneous tissue following other procedure Colostomy in place Hx of flexible sigmoidoscopy Proctosigmoiditis Stricture of sigmoid colon Colon wall thickening Obesity, Class II, BMI 35-39.9 IBS (irritable bowel syndrome) History of colitis Gastric ulcer Interstitial cystitis Occipital neuralgia of right side History of suicidal ideation Anxiety Agoraphobia MDD (major depressive disorder) PTSD (post-traumatic stress disorder) Surgical History Hx of colonoscopy Hx of section H/O: hysterectomy Hx of cholecystectomy (~12/2022) Family History Family History Father Prostate cancer Maternal Uncle Colon cancer Maternal Grandmother Breast cancer Social History Social History Household Members: Spouse and Children Housing: House Do you presently have visiting nurse or other home services: Yes ([employer] to help with ADLs) Alcohol intake: never 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 Patient Tobacco Use Status: Never used Tobacco Smoked in Last 30 Days: No Use of substances other than those prescribed or required for medical reasons: No Advance Directives: No Advance Directives Information Provided: Yes Patient : No service: No Physical Exam 2 Vital Signs: Vital Signs: Last Vital Signs Temp 98.6 F 09/19/24 21:39 Pulse 83 09/19/24 21:39 Resp 20 09/19/24 21:39 BP 112/66 09/19/24 21:39 Pulse Ox 94 09/19/24 21:39 O2 Del Method Room Air 09/19/24 21:39 BMI result Body Mass Index 40.2 Const: General: cooperative, no acute distress, alert and awake Nutritional Appearance: well nourished Orientation/consciousness: patient oriented x3 HEENT: Head: Yes normal to inspection and Yes atraumatic Ears: hearing grossly normal bilaterally and external ears normal General nose exam: Normal external nose present, no nasal discharge noted and no epistaxis Face and sinus: Yes normal facial exam, No abrasion and No laceration Mouth: Normal oral and palatal mucosa present, no drooling and no muffled voice Eyes: General: appearance normal, both eyes and all related structures P eriorbital: periorbital findings normal Eyelids: Yes eyelids normal C onjunctivae: conjunctivae normal Pupils: Equal, round and reactive pupils present EOM: EOMs intact bilaterally Neck: Neck: Yes normal visual inspection, Yes full ROM and Yes no lymphadenopathy Resp: Effort & Inspection: normal respiratory effort and able to speak in complete sentences Neuro: General: patient oriented x3, moves all extremities and CN's II-XI intact bilaterally Cranial nerves: Yes Equal, round and reactive pupils present Cognition (Neuro): normal cognition Extrem: General: Yes normal to inspection, Yes full ROM and Yes capillary refill normal Psych: Appearance: grossly normal Mental Status: mental status grossly normal Affect: normal affect Attitude: cooperative Thought process: N ormal thought process present Thought content: Normal thought content present Insight: Good insight present (Psych) Course Course Course Narrative: This is a Rapid Medical Examination (RME) performed by Berna Ortiz PA-C in triage. Full HPI, ROS, assessment and treatment plan per primary provider in the Main ED. 43 yo female with history of inflammatory bowel disease s/p colostomy who presents to the ER per her Neurology provider for evaluation of bilateral arm numbness, right leg numbness and pain, vision changes and severe weakness since yesterday. She follows with a [place] clinic in [place] where she is seen but not treated because she has not been formally diagnosed with MS. She reports symptoms have been going on for 1 year but when they get this bad her Neurologist tells her to come to the ER. Plan: CT head, basic labs. Medications Administered Discontinued Medications Generic Name Dose Route Start Last Admin Trade Name Corky PRN Reason Stop Dose Admin Dexamethasone Sodium Phosphate 10 mg 09/19/24 18:34 09/19/24 19:05 Dexamethasone Sod Phosphate 10 Mg/Ml Vial IVPUSH 09/19/24 18:35 10 mg ONCE ONE Administration Diazepam 5 mg 09/19/24 18:34 09/19/24 19:07 Diazepam 10 Mg/2 Ml Cartridge IVPUSH 09/19/24 18:35 5 mg STAT STA Administration Hydromorphone HCl 1 mg 09/19/24 20:15 09/19/24 21:12 Hydromorphone Hcl 1 Mg/Ml Syringe IVPUSH 09/19/24 20:16 1 mg ONCE ONE Administration Protocol Sodium Chloride 1,000 mls @ 999 mls/hr 09/19/24 18:45 09/19/24 21:02 Ns IV 09/19/24 19:45 Infused .Q1H1M MARIAH Infusion Medical Decision Making Medical Decision Making [facility] Narrative: Patient is a 43 year old assigned female at with an extensive neurological history including occipital neuralgia and suspicion of MS for which she is followed closely by a neurologist presenting to the emergency department today with headache, bilateral mid arm numbness / pain, right sided leg pain / tingling / numbness, seeing dark circles in her vision intermittently, lethargy, and muscle spasms. Patient's physical exam was unremarkable. Patient's blood work was unremarkable. Patient's urine showed no acute process. Patient's CT head and c-spine showed no acute process. Patient's clinical presentation is most consistent with chronic paresthesias and misc. neurologic complaints per her baseline. I explained my physical exam findings as well as all test results to the patient. I answered all questions asked by the patient. Patient had no neurologic deficits and no red flag symptoms. I spoke with the patient for an extensive amount of time and determined that these are symptoms she chronically has and she recently ran out of her home ativan which she believes is exacerbating her symptoms. Patient received IV dilaudid, valium, and fluids which, upon re-evaluation, she stated it helped her symptoms significantly. I stressed the importance of the patient taking her medication as directed (either prescribed or as the over the counter packaging recommends). I stressed the importance of the patient following up with her primary care provider and her neurologist. I stressed the importance of the patient returning to the emergency department immediately if her symptoms were to worsen or if she were to develop any dizziness, shortness of breath, difficulty breathing, chest pain, blurry vision, loss of vision, nausea, vomiting, abdominal pain, fever, chills, back pain, or any other complaints. Patient verbalized agreement and understanding with this treatment plan and discharge. Differential Diagnosis Differential Diagnoses: The differential diagnosis associated with the presentation includes Muscle spasms Paresthesias Chronic neurologic symptoms Admission/Observation Consideration of admission/observation: Escalation of care including admission/observation considered Patient would have been admitted to the hospital had her work up had any findings where hospital admission was appropriate and her clinical presentation warranted hospital admission. Lab Data [facility] Lab Attestation statement: I reviewed the patient's lab results. My interpretation of these results are in the [facility] Rationale portion of this note. 09/19/24 16:16 09/19/24 17:48 Labs: Lab Results 09/19/24 09/19/24 09/19/24 Range/Units 16:16 17:48 21:12 WBC 8.0 (4.8-10.8) X10*3/uL RBC 4.96 D (4.20-5.50) X10*6/uL Hgb 13.2 (12.0-16.0) g/dl Hct 40.7 D (37.0-47.0) % MCV 82.1 (80.0-98.0) fL MCH 26.6 L (27.0-33.0) pg MCHC 32.4 (31.0-35.0) g/dl RDW 13.9 (11.0-16.0) % Plt Count 414 H (160-400) X10*3/uL MPV 9.7 (9.4-12.3) fL Immature Gran % (Auto) 0.2 (0.0-0.4) % Neut % (Auto) 54.4 (45-73) % Lymph % (Auto) 36.9 (20-40) % [place] % (Auto) 5.4 (2-11) % Eos % (Auto) 2.6 (0-4) % Baso % (Auto) 0.5 (0-2) % Lymph # (Auto) 3.0 (1.2-4.9) X10*3/uL [place] # (Auto) 0.4 (0.1-1.2) X10*3/uL Eos # (Auto) 0.2 (0.0-0.4) X10*3/uL Baso # (Auto) 0.0 (0.0-0.2) X10*3/uL Abs Immat Gran (auto) 0.02 (0.00-0.03) X10*3/uL Absolute Neuts (auto) 4.4 (2.0-8.3) x10*3/uL Absolute Nucleated RBC 0.000 (0.0-0.012) X10*3/uL Nucleated RBC % (auto) 0.0 (0.0-0.2) /100WBC Sodium 136 (135-145) mmol/L Potassium 4.5 D (3.3-5.1) mmol/L Chloride 103 (96-108) mmol/L Carbon Dioxide 27 (22-29) mmol/L Anion Gap 11 L (12-20) BUN 12 (9-16) mg/dL Creatinine 0.70 (0.5-1.4) mg/dL Estim Creat Clear Calc 120.0 Estimated GFR > 60 Random Glucose 91 (60-115) mg/dL Calcium 9.6 D (8.4-10.2) mg/dL Magnesium 2.2 (1.6-2.6) mg/dL Total Bilirubin 0.2 (0.0-1.0) mg/dL Direct Bilirubin < 0.2 (0.0-0.5) mg/dL AST 21 (5-31) U/L ALT 20 (0-31) U/L Alkaline Phosphatase 115 (39-117) U/L Total Protein 7.6 (6.5-8.0) g/dL Albumin 4.3 (3.5-5.0) g/dL Urine Color Yellow Urine Appearance Clear Urine pH 5.5 (5.0-9.0) Ur Specific [place] 1.010 (1.005-1.025) Urine Protein Negative (Neg-Trace) mg/dL Urine Glucose (UA) Negative (Negative) mg/dL Urine Ketones Negative (Negative) mg/dL Urine Blood Negative (Negative) Urine Nitrite Negative (Negative) Ur Leukocyte Esterase Negative (Negative) Urine Opiates Screen Not Detected (Not Detect) Ur Buprenorphine Scrn Not Detected (Not Detect) ng/mL Ur Oxycodone Screen Not Detected (Not Detect) ng/mL Urine Methadone Screen Not Detected (Not Detect) ng/mL Urine Fentanyl Screen Not Detected (Not Detect) Ur Barbiturates Screen Not Detected (Not Detect) Ur Phencyclidine Scrn Not Detected (Not Detect) Ur Amphetamines Screen Not Detected (Not Detect) U Benzodiazepines Scrn POSITIVE H (Not Detect) Urine Cocaine Screen Not Detected (Not Detect) U Marijuana (THC) Screen Not Detected (Not Detect) Independent Interpretation I performed an independent interpretation of an: CT Scan Interpretation: My interpretation is in agreement with the radiologist's impression of these imaging studies. L Report Number: [id number]: Total DLP = 1416.00 mGy-cm CLINICAL HISTORY: bilateral arm numbness, right leg numbness CT head without contrast Comparison: None provided Findings: No intra-axial mass, midline shift, hydrocephalus, or acute hemorrhage. No significant atrophy-like change or white matter disease. There is no sinus or mastoid fluid. The orbits are within normal limits. There is no acute fracture. IMPRESSION: 1. No acute intracranial findings. This document has been electronically signed by: Claudia Simons MD on 09/19/2024 17:36:39 Dictated By: Claudia Simons MD Electronically signed by Claudia Simons MD 09/19/24 1738 Report Number: [id number]: Total DLP = 1416.00 mGy-cm CLINICAL HISTORY: bilateral arm numbness CT cervical spine without contrast Comparison: None Findings: No acute fracture. There is straightening of the cervical lordosis. Mild degenerative changes of the cervical spine with marginal osteophytes of the C6 and C7. There is mild narrowing of the C6-C7 intervertebral disc space. No evidence of spinal stenosis or neural foramina stenosis. The soft tissue and lung apices are unremarkable. IMPRESSION: 1. No acute findings. Mild degenerative changes of the cervical spine. This document has been electronically signed by: Claudia Simons MD on 09/19/2024 17:41:20 Dictated By: Claudia Simons MD Signed By: Electronically signed by Claudia Simons MD 09/19/24 [id number] Radiology Impression Discussion of test interpretation with radiology: I have reviewed the radiologist's reading. Critical Care Time Critical Care Time Critical Care Time: Yes Total Critical Care Time: 31 Attestation: I spent 31 minutes of Critical Care Time with this patient. This does not include time spent on separately reported billable procedures. Discharge Plan Discharge Clinical Impression: Paresthesia Patient Disposition: Home, Self-Care Instructions: Paresthesia (ED) Additional Instructions: Follow up with your primary care provider and your neurologist. Return to the emergency department immediately if your symptoms worsen or if you develop any numbness, tingling, dizziness, shortness of breath, difficulty breathing, chest pain, blurry vision, loss of vision, nausea, vomiting, abdominal pain, fever, chills, back pain, or any other complaints. Please see the information below about our Patient Portal. If you are not yet enrolled in the [facility] Patient Portal, you will receive an enrollment email invitation following your visit to any [facility] care setting. You may also self-enroll in the Patient Portal by visiting our website: [email or web address] The following information is required to access the Patient Portal: - Your [facility] Medical Record Number - Your personal home email address (must match what is in your electronic medical record, Registration staff can assist with this) - Name - Date of Capabilities of the Patient Portal: - Message some providers - View upcoming appointments - Access your health summary, medical history, and visit history - View current conditions and allergies - View procedure and lab results - View your medications, including guidelines, side effects, and precautions - Complete pre-appointment questionnaires requested by your provider - Ready summary reports of your office visits and procedures To access the Patient Portal Mobile [employer], follow these directions: - Search get2play in the [employer] Store or [employer] Store - Download the Isaiah - Search for [facility] - Enter your login/password Prescriptions: No Action esomeprazole magnesium 40 mg capsule,delayed release(DR/EC) 40 mg PO DAILY Qty: 30 5RF valacyclovir 500 mg tablet 500 mg PO DAILY Trintellix 20 mg tablet 20 mg PO DAILY lamotrigine 200 mg tablet 200 mg PO DAILY Rx Instructions: 200mg in morning, 25mg at night lamotrigine 25 mg tablet 50 mg PO BEDTIME Rx Instructions: 200mg in morning, 25mg at night sennosides [senna] 8.6 mg tablet 17.2 mg PO BEDTIME PRN (Reason: constipation) tamsulosin 0.4 mg capsule 0.4 mg PO BEDTIME docusate sodium [Colace] 100 mg capsule 100 mg PO BID Qty: 60 3RF polyethylene glycol 3350 [Miralax] 17 gram/dose powder 17 g PO DAILY Qty: 510 2RF bisacodyl 5 mg tablet,delayed release (DR/EC) 10 mg PO BEDTIME magnesium oxide 400 mg magnesium capsule 400 mg PO DAILY mirabegron [Myrbetriq] 50 mg tablet extended release 24 hr 50 mg PO DAILY fluticasone propionate 50 mcg/actuation [place],Suspension 2 spray INTRANASAL DAILY PRN (Reason: Allergy Symptoms) Rx Instructions: administer into each nostril lactulose 10 gram/15 mL Solution 20 g PO BID Qty: 1200 0RF pramoxine 1 % Foam 1 appl [place] BID Qty: 15 2RF mesalamine 0.375 gram Capsule,Extended Release 24hr 1.5 g PO DAILY Qty: 90 0RF ondansetron 4 mg tablet,disintegrating 4 mg PO Q8H PRN (Reason: nausea and vomiting) Qty: 30 1RF metoclopramide HCl [Reglan] 10 mg tablet 10 mg PO Q6H PRN (Reason: nausea and vomiting) Qty: 30 0RF famotidine 20 mg tablet 20 mg PO BID hydroxyzine HCl 25 mg tablet 25 mg PO BEDTIME clonazepam 1 mg tablet 1 mg PO TID cholecalciferol (vitamin D3) 125 mcg (5,000 unit) capsule 125 mcg PO DAILY Qty: 90 3RF Citrucel 500 mg tablet 500 mg PO DAILY Qty: 90 2RF Rx Instructions: take it with full glass of water eszopiclone [Lunesta] 3 mg tablet 3 mg PO BEDTIME tramadol 50 mg tablet 50 mg PO TID PRN (Reason: pain) Qty: 30 0RF Rx Instructions: Okay to take up to 2 tablets at a time Referrals: [facility] Family Medicine [Provider Group, Family Practice] Referral Note: Call to establish and follow up with a primary care provider. If you already have a primary care provider, please follow up with them. Discharge Date/Time: 09/19/24 22:01 Print Language: Ugandan
[2024-09-19 16:25] LABS: MANUAL DIFF FLAG NO
[2024-09-19 16:31] LABS: Basophils Percent Auto 0.5 % (0-2); Eosinophils Absolute Auto 0.2 X10*3/uL (0.0-0.4); Eosinophils Percent Auto 2.6 % (0-4); Hematocrit 40.7 % (37.0-47.0); Hemoglobin 13.2 g/dl (12.0-16.0); Imm Gran Abs Auto 0.02 X10*3/uL (0.00-0.03); Imm Gran Pct Auto 0.2 % (0.0-0.4); Lymphocytes Percent Auto 36.9 % (20-40); Mean Corpuscular HGB Conc 32.4 g/dl (31.0-35.0); Mean Corpuscular Hemoglobin 26.6 pg (27.0-33.0); Mean Corpuscular Volume 82.1 fL (80.0-98.0); Mean Platelet Volume 9.7 fL (9.4-12.3); Monocytes Absolute Auto 0.4 X10*3/uL (0.1-1.2); Monocytes Percent Auto 5.4 % (2-11); Neutrophils Absolute Auto 4.4 x10*3/uL (2.0-8.3); Neutrophils Percent Auto 54.4 % (45-73); Platelet Count 414 X10*3/uL (160-400); Red Blood Count 4.96 X10*6/uL (4.20-5.50); Red Cell Distribution Width 13.9 % (11.0-16.0)
[2024-09-19 18:18] LABS: Alanine Aminotransferase 20 U/L (0-31); Albumin Level 4.3 g/dL (3.5-5.0); Alkaline Phosphatase 115 U/L (39-117); Anion Gap 11 (12-20); Aspartate Amino Transferase 21 U/L (5-31); Bilirubin Direct < 0.2 mg/dL (0.0-0.5); Bilirubin Total 0.2 mg/dL (0.0-1.0); Blood Urea Nitrogen 12 mg/dL (9-16); Calcium 9.6 mg/dL (8.4-10.2); Carbon Dioxide 27 mmol/L (22-29); Chloride 103 mmol/L (96-108); Estimated Glomerular Filt Rate > 60; Glucose Random 91 mg/dL (60-115); Magnesium 2.2 mg/dL (1.6-2.6); Potassium 4.5 mmol/L (3.3-5.1); Sodium 136 mmol/L (135-145); Total Protein 7.6 g/dL (6.5-8.0)
[2024-09-19] MEDS: 0.9 % Sodium Chloride 1,000 ML 999 ML IV (19:05)
[2024-09-19] MEDS: dexAMETHasone sod phosphate 10 MG/ML VIAL IVPUSH (19:05)
[2024-09-19] MEDS: diazePAM 10 MG/2 ML CARTRIDGE 5 MG IVPUSH (19:07)
[2024-09-19 19:11] VITALS: BP 119/60; PULSE 73; RESP 16; O2SAT 95
[2024-09-19] MEDS: HYDROmorphone HCl 1 MG/ML SYRINGE IVPUSH (21:12)
[2024-09-19 21:22] LABS: Appearance Urine Clear; Color Urine Yellow; Glucose Urine UA Negative (Negative); Leukocyte Esterase Urine Negative (Negative); Nitrite Urine Negative (Negative); PH 5.5 (5.0-9.0); Urine Blood Negative (Negative); Urine Ketones Negative (Negative); Urine Protein Negative (Neg-Trace)
[2024-09-19 21:39] VITALS: BP 112/66; PULSE 83; RESP 20; TEMP 37; O2SAT 94
[2024-09-19 21:42] LABS: Amphetamine Screen Urine Not Detected (Not Detect); Barbiturates, Urine Not Detected (Not Detect); Benzodiazepines Screen Urine POSITIVE (Not Detect); Buprenorphine Scr Not Detected (Not Detect); Cannabinoid Screen Urine Not Detected (Not Detect); Cocaine Screen Urine Not Detected (Not Detect); Fentanyl, urine Not Detected (Not Detect); Methadone Screen, Urine Not Detected (Not Detect); Opiate Screen Urine Not Detected (Not Detect); Oxycodone Screen Urine Not Detected (Not Detect); Phencyclidine Screen Urine Not Detected (Not Detect)
== END 2024-09-19 22:01 | disposition home or self-care (01) ==
PROVIDERS: Physician Assistant; Emergency Provider Emergency Medicine Emergency Medical Services
DX: M54.81 Occipital neuralgia (principal); R20.0 Anesthesia of skin; R53.1 Weakness; R51.9 Headache, unspecified; M54.2 Cervicalgia; Z79.899 Other long term (current) drug therapy; Z51.81 Encounter for therapeutic drug level monitoring
CPT/HCPCS: 36415; 70450; 72125; 80048; 80076; 80307; 81003; 83735; 85025; 96361; 96374; 96375; 99285; J1100; J1171; J3360

== ENCOUNTER → 2024-09-19 15:55 | Outpatient (BNV) | payer OTHER, SELFPAY | PROVIDERS: Visit Provider Nuclear Medicine | DX: R20.2 Paresthesia of skin (principal) | CPT/HCPCS: 70450; 72125 ==

== ENCOUNTER 2024-09-24 11:45 | Emergency (ER) | payer OTHER, SELFPAY ==
[2024-09-24 12:07] VITALS: BP 130/73; PULSE 87; RESP 16; TEMP 36.7; O2SAT 98; BMI 40.2
--- NOTE | 2024-09-24 12:07 | ED.ABDPAIN ---
HPI - Abdominal Pain General Chief Complaint: Nausea/Vomiting/Diarrhea Stated Complaint: Abd Pain, Colotomy pain, diarrhea Time Seen by Provider: 09/24/24 14:27 Source: patient Mode of arrival: ambulatory Limitations: no limitations History of Present Illness ED Provider: HPI narrative: 43-year-old woman ostomy placed on August [address] Allen, reports diarrhea for the past 3 days with the abdominal pain cramping worse with food, states has been using Zofran without much help, she states she called a VNA and GI office and surgical office in everywhere she was told to come to emergency department. Related Data Home Medications ?Medication ?Instructions ?Recorded ?Confirmed lamotrigine 200 mg tablet 200 mg PO DAILY 01/02/23 09/17/24 valacyclovir 500 mg tablet 500 mg PO DAILY 01/02/23 09/17/24 vortioxetine 20 mg tablet 20 mg PO DAILY 01/02/23 09/17/24 (Trintellix) clonazepam 1 mg tablet 1 mg PO TID 01/08/24 09/17/24 famotidine 20 mg tablet 20 mg PO BID 01/08/24 09/17/24 hydroxyzine HCl 25 mg tablet 25 mg PO BEDTIME 01/08/24 09/17/24 lamotrigine 25 mg tablet 50 mg PO BEDTIME 01/08/24 09/17/24 bisacodyl 5 mg tablet,delayed 10 mg PO BEDTIME 07/25/24 09/17/24 release fluticasone propionate 50 2 spray intranasal DAILY PRN 07/25/24 09/17/24 mcg/actuation nasal Allergy Symptoms spray,suspension magnesium oxide 400 mg PO DAILY 07/25/24 09/17/24 mirabegron 50 mg tablet,extended 50 mg PO DAILY 07/25/24 09/17/24 release 24 hr (Myrbetriq) eszopiclone 3 mg tablet (Lunesta) 3 mg PO BEDTIME 08/06/24 09/17/24 sennosides 8.6 mg tablet (senna) 17.2 mg PO BEDTIME PRN constipation 08/12/24 09/17/24 tamsulosin 0.4 mg capsule 0.4 mg PO BEDTIME 08/12/24 09/17/24 Previous Rx's ?Medication ?Instructions ?Recorded cholecalciferol (vitamin D3) 125 125 mcg PO DAILY #90 caps 05/30/24 mcg (5,000 unit) capsule methylcellulose (laxative) 500 mg 500 mg PO DAILY #90 tabs 05/30/24 tablet (Citrucel) lactulose 10 gram/15 mL oral 20 g (30 mL) PO BID #1,200 mL 08/01/24 solution mesalamine 0.375 gram 1.5 g (4 x 0.375 gram) PO DAILY 08/01/24 capsule,extended release 24 hr #90 caps ondansetron 4 mg disintegrating 4 mg PO Q8H PRN nausea and 08/01/24 tablet vomiting #30 tabs pramoxine 1 % topical foam 1 appl [place] BID #15 grams 08/01/24 docusate sodium 100 mg capsule 100 mg PO BID #60 caps 08/20/24 (Colace) polyethylene glycol 3350 17 17 g PO DAILY #510 grams 08/20/24 gram/dose oral powder (Miralax) tramadol 50 mg tablet 50 mg PO TID PRN pain #30 tabs 08/27/24 esomeprazole magnesium 40 mg 40 mg PO DAILY #30 caps 09/09/24 capsule,delayed release metoclopramide HCl 10 mg tablet 10 mg PO Q6H PRN nausea and 09/09/24 (Reglan) vomiting #30 tabs Allergies Allergy/AdvReac Type Severity Reaction Status Date / Time propofol Allergy Intermediate Itching Verified 09/24/24 12:14 morphine Allergy Mild Itching Verified 09/24/24 12:14 Review of Systems Constitutional: Reports as per [facility] Past Medical History Medical History Postprocedural seroma of skin and subcutaneous tissue following other procedure Colostomy in place Hx of flexible sigmoidoscopy Proctosigmoiditis Stricture of sigmoid colon Colon wall thickening Obesity, Class II, BMI 35-39.9 IBS (irritable bowel syndrome) History of colitis Gastric ulcer Interstitial cystitis Occipital neuralgia of right side History of suicidal ideation Anxiety Agoraphobia MDD (major depressive disorder) PTSD (post-traumatic stress disorder) Surgical History Hx of colonoscopy Hx of section H/O: hysterectomy Hx of cholecystectomy (~12/2022) Family History Family History Father Prostate cancer Maternal Uncle Colon cancer Maternal Grandmother Breast cancer Social History Social History Household Members: Spouse and Children Housing: House Do you presently have visiting nurse or other home services: Yes (TUBER OPERATOR to help with ADLs) Alcohol intake: never 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 Patient Tobacco Use Status: Never used Tobacco Advance Directives: No Advance Directives Information Provided: Yes service: No Physical Exam ED Vital Signs: Vital Signs - 24 hr 09/24/24 12:07 Temperature 98.1 F Pulse Rate 87 Respiratory Rate 16 Blood Pressure 130/73 Pulse Oximetry 98 Oxygen Delivery Method Room Air BMI result Body Mass Index 40.2 Const Other: Gen: ?Overall well-appearing patient Resp: ?No wheezing rales rhonchi no stridor moving air well Abd: ?Bowel sounds are present throughout, colostomy is in place, ostomy bag right now is empty, there are no hernias there is no rotation, I did not elicit any tenderness, there is no abdominal hardness as documented in triage note MSK: FROM, strength 5/5 all extremities Skin: Warm, dry, intact, Neuro: ?Alert and oriented x3, moving upper and lower extremities symmetrically, no obvious facial asymmetry noted Course Course Course Narrative: This is an RME: Additional HPI, ROS, PE not included below will be deferred to primary provider. RME assessment and note performed by: Naresh Lewis PA-C 43 yo F, expect called from VNA, S/P colostomy (08/12/24) here due to abd pain, cramping , 3 days of continuous diarrhea through stoma and nausea. States she has been taking zofran for nausea, no vomitng. Denies sick contacts PE: patient uncomfortable, using walker for ambulation, VSS Plan: Labs, UA, Medical Decision Making Medical Decision Making MDM Narrative: I got in touch with Dr. Allen to evaluate the patient, her blood work is reassuring no electrolyte derangements, no dehydration vital signs are stable, abdominal exam with present bowel sounds, no rebound no rigidity, no distention, did not feel further imaging such as CT is indicated at this time this has been explained to the patient, she continues to have anxious affect 15:13 Dr. Allen recommends fluids, highest ketamine, providing her with elixir, an IV fluids and we will anticipate discharge with the Differential Diagnosis Differential Diagnoses: The differential diagnosis associated with the presentation includes SBO, volvulus, cellulitis, hernia, dehydration Admission/Observation Consideration of admission/observation: Escalation of care including admission/observation considered Lab Data 09/24/24 12:47 09/24/24 12:47 Labs: Lab Results 09/24/24 Range/Units 12:47 WBC 8.5 (4.8-10.8) X10*3/uL RBC 4.99 (4.20-5.50) X10*6/uL Hgb 13.4 (12.0-16.0) g/dl Hct 40.3 (37.0-47.0) % MCV 80.8 (80.0-98.0) fL MCH 26.9 L (27.0-33.0) pg MCHC 33.3 (31.0-35.0) g/dl RDW 13.7 (11.0-16.0) % Plt Count 420 H (160-400) X10*3/uL MPV 9.4 (9.4-12.3) fL Immature Gran % (Auto) 0.2 (0.0-0.4) % Neut % (Auto) 57.8 (45-73) % Lymph % (Auto) 33.2 (20-40) % [place] % (Auto) 5.2 (2-11) % Eos % (Auto) 3.4 (0-4) % Baso % (Auto) 0.2 (0-2) % Lymph # (Auto) 2.8 (1.2-4.9) X10*3/uL [place] # (Auto) 0.4 (0.1-1.2) X10*3/uL Eos # (Auto) 0.3 (0.0-0.4) X10*3/uL Baso # (Auto) 0.0 (0.0-0.2) X10*3/uL Abs Immat Gran (auto) 0.02 (0.00-0.03) X10*3/uL Absolute Neuts (auto) 4.9 (2.0-8.3) x10*3/uL Absolute Nucleated RBC 0.000 (0.0-0.012) X10*3/uL Nucleated RBC % (auto) 0.0 (0.0-0.2) /100WBC Sodium 138 (135-145) mmol/L Potassium 3.9 (3.3-5.1) mmol/L Chloride 105 (96-108) mmol/L Carbon Dioxide 25 (22-29) mmol/L Anion Gap 12 (12-20) BUN 12 (9-16) mg/dL Creatinine 0.72 (0.5-1.4) mg/dL Estim Creat Clear Calc 116.6 Estimated GFR > 60 Random Glucose 121 H (60-115) mg/dL Calcium 9.1 (8.4-10.2) mg/dL Magnesium 2.0 (1.6-2.6) mg/dL Total Bilirubin 0.1 (0.0-1.0) mg/dL AST 25 (5-31) U/L ALT 29 (0-31) U/L Alkaline Phosphatase 111 (39-117) U/L Total Protein 7.6 (6.5-8.0) g/dL Albumin 4.1 (3.5-5.0) g/dL Beta HCG, Quant < 2 mIU/mL Discharge Plan Discharge Clinical Impression: Irritable bowel syndrome (IBS), Colostomy in place Patient Disposition: Home, Self-Care Additional Instructions: Your blood work has been reassuring, you were evaluated by Dr. Allen, received fluids, medications for irritable bowel syndrome in the emergency department as per surgeon's recommendations, he will follow up with the identification officer which Dr. Allen will facilitate. Prescriptions: No Action esomeprazole magnesium 40 mg capsule,delayed release(DR/EC) 40 mg PO DAILY Qty: 30 5RF valacyclovir 500 mg tablet 500 mg PO DAILY Trintellix 20 mg tablet 20 mg PO DAILY lamotrigine 200 mg tablet 200 mg PO DAILY Rx Instructions: 200mg in morning, 25mg at night lamotrigine 25 mg tablet 50 mg PO BEDTIME Rx Instructions: 200mg in morning, 25mg at night sennosides [senna] 8.6 mg tablet 17.2 mg PO BEDTIME PRN (Reason: constipation) tamsulosin 0.4 mg capsule 0.4 mg PO BEDTIME docusate sodium [Colace] 100 mg capsule 100 mg PO BID Qty: 60 3RF polyethylene glycol 3350 [Miralax] 17 gram/dose powder 17 g PO DAILY Qty: 510 2RF bisacodyl 5 mg tablet,delayed release (DR/EC) 10 mg PO BEDTIME magnesium oxide 400 mg magnesium capsule 400 mg PO DAILY mirabegron [Myrbetriq] 50 mg tablet extended release 24 hr 50 mg PO DAILY fluticasone propionate 50 mcg/actuation [place],Suspension 2 spray INTRANASAL DAILY PRN (Reason: Allergy Symptoms) Rx Instructions: administer into each nostril lactulose 10 gram/15 mL Solution 20 g PO BID Qty: 1200 0RF pramoxine 1 % Foam 1 appl [place] BID Qty: 15 2RF mesalamine 0.375 gram Capsule,Extended Release 24hr 1.5 g PO DAILY Qty: 90 0RF ondansetron 4 mg tablet,disintegrating 4 mg PO Q8H PRN (Reason: nausea and vomiting) Qty: 30 1RF metoclopramide HCl [Reglan] 10 mg tablet 10 mg PO Q6H PRN (Reason: nausea and vomiting) Qty: 30 0RF famotidine 20 mg tablet 20 mg PO BID hydroxyzine HCl 25 mg tablet 25 mg PO BEDTIME clonazepam 1 mg tablet 1 mg PO TID cholecalciferol (vitamin D3) 125 mcg (5,000 unit) capsule 125 mcg PO DAILY Qty: 90 3RF Citrucel 500 mg tablet 500 mg PO DAILY Qty: 90 2RF Rx Instructions: take it with full glass of water eszopiclone [Lunesta] 3 mg tablet 3 mg PO BEDTIME tramadol 50 mg tablet 50 mg PO TID PRN (Reason: pain) Qty: 30 0RF Rx Instructions: Okay to take up to 2 tablets at a time Print Language: [place]
[2024-09-24 12:52] LABS: MANUAL DIFF FLAG NO
[2024-09-24 12:53] LABS: Basophils Percent Auto 0.2 % (0-2); Eosinophils Absolute Auto 0.3 X10*3/uL (0.0-0.4); Eosinophils Percent Auto 3.4 % (0-4); Hematocrit 40.3 % (37.0-47.0); Hemoglobin 13.4 g/dl (12.0-16.0); Imm Gran Abs Auto 0.02 X10*3/uL (0.00-0.03); Imm Gran Pct Auto 0.2 % (0.0-0.4); Lymphocytes Absolute Auto 2.8 X10*3/uL (1.2-4.9); Lymphocytes Percent Auto 33.2 % (20-40); Mean Corpuscular HGB Conc 33.3 g/dl (31.0-35.0); Mean Corpuscular Hemoglobin 26.9 pg (27.0-33.0); Mean Corpuscular Volume 80.8 fL (80.0-98.0); Mean Platelet Volume 9.4 fL (9.4-12.3); Monocytes Absolute Auto 0.4 X10*3/uL (0.1-1.2); Monocytes Percent Auto 5.2 % (2-11); Neutrophils Absolute Auto 4.9 x10*3/uL (2.0-8.3); Neutrophils Percent Auto 57.8 % (45-73); Platelet Count 420 X10*3/uL (160-400); Red Blood Count 4.99 X10*6/uL (4.20-5.50); Red Cell Distribution Width 13.7 % (11.0-16.0); White Blood Count 8.5 X10*3/uL (4.8-10.8)
[2024-09-24 13:15] LABS: Alanine Aminotransferase 29 U/L (0-31); Albumin Level 4.1 g/dL (3.5-5.0); Alkaline Phosphatase 111 U/L (39-117); Anion Gap 12 (12-20); Aspartate Amino Transferase 25 U/L (5-31); Bilirubin Total 0.1 mg/dL (0.0-1.0); Blood Urea Nitrogen 12 mg/dL (9-16); Calcium 9.1 mg/dL (8.4-10.2); Carbon Dioxide 25 mmol/L (22-29); Chloride 105 mmol/L (96-108); Creatinine Clr Calc Pharmacy 116.6; Estimated Glomerular Filt Rate > 60; Glucose Random 121 mg/dL (60-115); HCG Quantitative < 2 mIU/mL; Potassium 3.9 mmol/L (3.3-5.1); Sodium 138 mmol/L (135-145); Total Protein 7.6 g/dL (6.5-8.0)
--- NOTE | 2024-09-24 15:14 | PM.CNGS ---
History of Present Illness Consult details Consult date: 09/24/24 Narrative: [age] year old female well known to me. She had undergone 43 year female well known to me. She had a colostomy done from the sigmoid on . She has had this long history of severe diarrhea, alternating me constipation. She describes having incontinence as well from her severe diarrhea and wanted to proceed with a colostomy. There was also question of sigmoid obstruction stricture but this was not seen intraoperatively. She continues to have alternating diarrhea and constipation but through the colostomy. She is here again because of high output from her colostomy. She says that she has been having diarrhea for 2 days now with watery stools. She describes some crampy abdominal pain as well. Review of Systems Constitutional: Constitutional: Denies chills and Denies fever(s) Cardiovascular: Cardiovascular: Denies chest pain, Denies dyspnea and Denies dyspnea on exertion Respiratory: Respiratory: Denies cough, Denies dyspnea and Denies dyspnea on exertion Gastrointestinal: Gastrointestinal: Denies hematochezia and Denies change in bowel habits Comments: Has colostomy functioning well Genitourinary: Genitourinary: Denies hematuria Musculoskeletal: Musculoskeletal: Denies back pain and Denies limited range of motion Neurologic: Denies focal weakness and Denies convulsions Psychiatric: Psychiatric: Denies depression and Denies mood swings PMFSH Past Medical History Medical History Postprocedural seroma of skin and subcutaneous tissue following other procedure Colostomy in place Hx of flexible sigmoidoscopy Proctosigmoiditis Stricture of sigmoid colon Colon wall thickening Obesity, Class II, BMI 35-39.9 IBS (irritable bowel syndrome) History of colitis Gastric ulcer Interstitial cystitis Occipital neuralgia of right side History of suicidal ideation Anxiety Agoraphobia MDD (major depressive disorder) PTSD (post-traumatic stress disorder) Family History Family History Father Prostate cancer Maternal Uncle Colon cancer Maternal Grandmother Breast cancer Surgical History Surgical History Hx of colonoscopy Hx of section H/O: hysterectomy Hx of cholecystectomy (~12/2022) Social History Social History Household Members: Spouse and Children Housing: House Do you presently have visiting nurse or other home services: Yes (MACHINE ACCOUNTANT to help with ADLs) Alcohol intake: never 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 Patient Tobacco Use Status: Never used Tobacco Smoked in Last 30 Days: No Use of substances other than those prescribed or required for medical reasons: Yes Substance Use Type: Marijuana Substance Use Frequency: Daily Advance Directives: No Advance Directives Information Provided: Yes Patient : No service: No Meds Allergies Allergy/AdvReac Type Severity Reaction Status Date / Time propofol Allergy Intermediate Itching Verified 09/24/24 12:14 morphine Allergy Mild Itching Verified 09/24/24 12:14 Active Medications: Current Medications Sodium Chloride (Ns) 1,000 mls @ 999 mls/hr IV .Q1H1M MARIAH Stop: 09/24/24 16:15 Home Medications ?Medication ?Instructions ?Recorded ?Confirmed ?Last Taken ?Type lamotrigine 200 mg tablet 200 mg PO DAILY 01/02/23 09/17/24 07/25/24 History valacyclovir 500 mg tablet 500 mg PO DAILY 01/02/23 09/17/24 07/25/24 History vortioxetine 20 mg tablet 20 mg PO DAILY 01/02/23 09/17/24 07/25/24 History (Trintellix) clonazepam 1 mg tablet 1 mg PO TID 01/08/24 09/17/24 07/25/24 History famotidine 20 mg tablet 20 mg PO BID 01/08/24 09/17/24 07/25/24 History hydroxyzine HCl 25 mg tablet 25 mg PO BEDTIME 01/08/24 09/17/24 07/24/24 History lamotrigine 25 mg tablet 50 mg PO BEDTIME 01/08/24 09/17/24 07/24/24 History bisacodyl 5 mg tablet,delayed 10 mg PO BEDTIME 07/25/24 09/17/24 07/25/24 History release fluticasone propionate 50 2 spray intranasal DAILY PRN 07/25/24 09/17/24 Unknown History mcg/actuation nasal Allergy Symptoms spray,suspension magnesium oxide 400 mg PO DAILY 07/25/24 09/17/24 07/25/24 History mirabegron 50 mg tablet,extended 50 mg PO DAILY 0409/17/24 07/25/24 History release 24 hr (Myrbetriq) eszopiclone 3 mg tablet (Lunesta) 3 mg PO BEDTIME 08/06/24 09/17/24 Unknown History sennosides 8.6 mg tablet (senna) 17.2 mg PO BEDTIME PRN constipation 08/12/24 09/17/24 Unknown History tamsulosin 0.4 mg capsule 0.4 mg PO BEDTIME 08/12/24 09/17/24 Unknown History Physical Exam Vital Signs: Vital Signs: Last Vital Signs Temp 98.1 F 09/24/24 12:07 Pulse 87 09/24/24 12:07 Resp 16 09/24/24 12:07 BP 130/73 09/24/24 12:07 Pulse Ox 98 09/24/24 12:07 O2 Del Method Room Air 09/24/24 12:07 BMI result Body Mass Index 40.2 Const: Other: Morbidly obese General: comfortable and no acute distress Resp: Effort & Inspection: normal respiratory effort Cardio: Rate: regular rate GI: Other: Obese, soft, colostomy functioning well, guarding, no rebound, minimal diffuse tenderness, incision well healed Results Labs 09/24/24 12:47 09/24/24 12:47 Labs: Abnormal lab results 09/24/24 Range/Units 12:47 MCH 26.9 L (27.0-33.0) pg Plt Count 420 H (160-400) X10*3/uL Random Glucose 121 H (60-115) mg/dL Short CBC 09/24/24 Range/Units 12:47 WBC 8.5 (4.8-10.8) X10*3/uL Hgb 13.4 (12.0-16.0) g/dl Hct 40.3 (37.0-47.0) % Plt Count 420 H (160-400) X10*3/uL BMP 09/24/24 12:47 Sodium 138 Potassium 3.9 Chloride 105 Carbon Dioxide 25 BUN 12 Creatinine 0.72 Calcium 9.1 Liver Function 09/24/24 Range/Units 12:47 Total Bilirubin 0.1 (0.0-1.0) mg/dL AST 25 (5-31) U/L ALT 29 (0-31) U/L Alkaline Phosphatase 111 (39-117) U/L Albumin 4.1 (3.5-5.0) g/dL All other labs normal. Assessment and Plan (1) Irritable bowel syndrome (IBS): Status: Inactive She has a colostomy, and has known IBS. She has this episodes of severe diarrhea and constipation. Her abdominal exam is otherwise benign. Her issues are chronic but she wanted to be checked he could not get into the office. I assured her that currently her exam is benign. She is on her diarrhea phase of her IBS currently. I recommended to the ED staff to give her IV fluids for hydration as she had high output for 2 days. She may benefit from hyoscyamine for symptomatic relief. I will assist her into the GI office sooner as she says her next appointment will not be until October. She is comfortable with the plan. Procedures Date of Service Date of Service: 09/25/24
[2024-09-24] MEDS: PHENobarb/Hyoscy/Atropine/Scop 10 ML ELIXIR PO (15:21)
[2024-09-24] MEDS: 0.9 % Sodium Chloride 1,000 ML 999 ML IV (15:23)
[2024-09-24 15:44] LABS: Appearance Urine Clear; Color Urine Yellow; Glucose Urine UA Negative (Negative); Leukocyte Esterase Urine Negative (Negative); Nitrite Urine Negative (Negative); Specific Gravity - Urine <= 1.005 (1.005-1.025); Urine Blood Negative (Negative); Urine Ketones Negative (Negative); Urine Protein Negative (Neg-Trace)
[2024-09-24 16:41] VITALS: BP 117/56; PULSE 86; RESP 18; TEMP 36.8; O2SAT 98
--- OUTSIDE RECORDS SUMMARY | 2024-09-24 16:47 | XMS_ITS | Clinical Summary ---
Author Organization [facility] Address [address] [place] [address] Care Team Providers Care Rate Clerk Passenger Name Role Phone Nori Posey MD Primary Care Provider [phone] Allergies Active Allergy Reactions Criticality Noted Date Comments Pena 08/30/2023 Medications Medication Sig Dispensed Refills Start [...] age to complete this topic Care Teams Rate Clerk Passenger Relationship Specialty Start Date End Date Nori Posey MD [address] [place] [id number] PCP - General Internal Medicine 08/01/23
[2024-09-24 16:52] VITALS: BP 117/56; PULSE 86; RESP 18; TEMP 36.8; O2SAT 98
== END 2024-09-24 16:53 | disposition home or self-care (01) ==
PROVIDERS: Emergency Provider Emergency Medicine; PCP Internal Medicine
DX: K58.9 Irritable bowel syndrome, unspecified (principal); R07.89 Other chest pain; R10.2 Pelvic and perineal pain; R11.0 Nausea; Z79.899 Other long term (current) drug therapy
CPT/HCPCS: 36415; 80053; 81003; 83735; 84702; 85025; 96360; 99284

== ENCOUNTER → 2024-09-24 14:02 | Outpatient (BNV) | payer OTHER, SELFPAY | PROVIDERS: Emergency Provider Emergency Medicine; PCP Internal Medicine; Visit Provider Surgery | DX: K58.9 Irritable bowel syndrome, unspecified (principal) | CPT/HCPCS: 99024 ==

== ENCOUNTER 2024-10-07 19:54 | Emergency (ER) | payer OTHER, SELFPAY ==
--- OUTSIDE RECORDS SUMMARY | 2024-01-02 10:45 | XMS_ITS | Encounter Summary ---
Author Organization [facility] Address [address] [place] [address] Care Team Providers Care Aircraft Accessories Mechanic Name Role Phone Nori Posey MD Primary Care Provider [phone] [phone] Encounter Details Date Type Department Care Team (Late st Contact Info) Description 01/02/2024 10:45 AM EDT Hospital Encounter TH HISTORIC ENCOUNTERS EASTERN CONVERSION ONLY Yossi Marina MD [address] [place] [phone] Social History Tobacco Use Types Packs/Day Years Used Date Smoking Tobacco: Unknown Alcohol Use Standard Drinks/Week Comments Not Currently [...] 8:03 AM EDT documented in this encounter Progress Notes * Yossi Marina [...] home since Sunday. Still has a black [place] in visual field of L eye. Still [...] ambulation ?? 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 The majority of the actual likc-yy-cypk visit was spent counseling the patient with respect to the current neurological picture. Yossi Marina MD documented in this encounter Plan of Treatment Upcoming Encounters Date Type Department Care Team (Late st Contact Info) Description 11/25/2024 2:40 PM EDT Consult Gastroenterology - [address] [facility] 299 [facility] [address] [place] [phone] Julian Sanchez MD 299 [facility] 419 [place] [address] 03/24/2025 11:30 AM EST Office Visit Internal Medicine - [address] [place], [place] [phone] Janet Harding MD [address] [place], [place] 03/31/2025 11:00 AM EST Office Visit [facility] [place] [facility] [address] [facility] 150 [place] [phone] Rocío Watkins PA 175 [facility] 150 [place] [address] documented as of this encounter Visit Diagnoses Not on filedocumented in this encounter Care Teams Aircraft Accessories Mechanic Relationship Specialty Start Date End Date Nori Posey MD PCP - General 01/30/23 04/22/24 documented as of this encounter
--- NOTE | ~2024-10-07 | CT_ITS ---
CLINICAL HISTORY: No flow in colostomy bag. SBO? CT abdomen and pelvis with contrast Comparison: 09/08/2024 Findings: Lung bases are clear. No acute bony abnormalities. Left abdominal wall ventral hernia noted. No underlying bowel distention identified. Liver and spleen within normal limits. Pancreas and adrenal glands unremarkable. Cholecystectomy. No significant focal renal abnormalities. No renal stones or hydronephrosis. Abdominal aorta is normal in caliber. No free fluid or adenopathy in the pelvis. No diverticulitis. Appendix unremarkable. Hysterectomy. No adnexal abnormality. Impression: No acute process This document has been electronically signed by: Scooter Denson MD on 10/07/2024 23:48:46
[2024-10-07 20:06] VITALS: BP 149/84; PULSE 90; RESP 18; TEMP 36.9; O2SAT 99; BMI 41.8
--- NOTE | 2024-10-07 20:20 | ED.GENADULT ---
HPI - General Adult General Chief complaint: Abdominal Pain Stated complaint: Belly swollen & hard/fever Time Seen by Provider: 10/07/24 20:22 Source: patient Mode of arrival: ambulatory Limitations: no limitations History of Present Illness ED Provider: HPI narrative: Patient with diverting end colostomy for IBS on 08/12/2024 comes here for increased abdominal distention and no output in the colostomy bag for last 24 hours patient's feel abdominal distended with nausea not passing any gas or stool in the bag no vomiting no fever no chills Related Data Home Medications ?Medication ?Instructions ?Recorded ?Confirmed lamotrigine 200 mg tablet 200 mg PO DAILY 01/02/23 09/17/24 valacyclovir 500 mg tablet 500 mg PO DAILY 01/02/23 09/17/24 vortioxetine 20 mg tablet 20 mg PO DAILY 01/02/23 09/17/24 (Trintellix) clonazepam 1 mg tablet 1 mg PO TID 01/08/24 09/17/24 famotidine 20 mg tablet 20 mg PO BID 01/08/24 09/17/24 hydroxyzine HCl 25 mg tablet 25 mg PO BEDTIME 01/08/24 09/17/24 lamotrigine 25 mg tablet 50 mg PO BEDTIME 01/08/24 09/17/24 bisacodyl 5 mg tablet,delayed 10 mg PO BEDTIME 07/25/24 09/17/24 release fluticasone propionate 50 2 spray intranasal DAILY PRN 07/25/24 09/17/24 mcg/actuation nasal Allergy Symptoms spray,suspension magnesium oxide 400 mg PO DAILY 07/25/24 09/17/24 mirabegron 50 mg tablet,extended 50 mg PO DAILY 07/25/24 09/17/24 release 24 hr (Myrbetriq) eszopiclone 3 mg tablet (Lunesta) 3 mg PO BEDTIME 08/06/24 09/17/24 sennosides 8.6 mg tablet (senna) 17.2 mg PO BEDTIME PRN constipation 08/12/24 09/17/24 tamsulosin 0.4 mg capsule 0.4 mg PO BEDTIME 08/12/24 09/17/24 Previous Rx's ?Medication ?Instructions ?Recorded cholecalciferol (vitamin D3) 125 125 mcg PO DAILY #90 caps 05/30/24 mcg (5,000 unit) capsule methylcellulose (laxative) 500 mg 500 mg PO DAILY #90 tabs 05/30/24 tablet (Citrucel) lactulose 10 gram/15 mL oral 20 g (30 mL) PO BID #1,200 mL 08/01/24 solution mesalamine 0.375 gram 1.5 g (4 x 0.375 gram) PO DAILY 08/01/24 capsule,extended release 24 hr #90 caps ondansetron 4 mg disintegrating 4 mg PO Q8H PRN nausea and 08/01/24 tablet vomiting #30 tabs pramoxine 1 % topical foam 1 appl [place] BID #15 grams 08/01/24 docusate sodium 100 mg capsule 100 mg PO BID #60 caps 08/20/24 (Colace) polyethylene glycol 3350 17 17 g PO DAILY #510 grams 08/20/24 gram/dose oral powder (Miralax) esomeprazole magnesium 40 mg 40 mg PO DAILY #30 caps 09/09/24 capsule,delayed release metoclopramide HCl 10 mg tablet 10 mg PO Q6H PRN nausea and 09/09/24 (Reglan) vomiting #30 tabs tramadol 50 mg tablet 50 mg PO BID PRN pain #12 tabs 09/24/24 Allergies Allergy/AdvReac Type Severity Reaction Status Date / Time propofol Allergy Intermediate Itching Verified 10/07/24 20:09 morphine Allergy Mild Itching Verified 10/07/24 20:09 Review of Systems Review of Systems: Yes all other systems are reviewed and are negative PMFSH Past Medical History Medical History Postprocedural seroma of skin and subcutaneous tissue following other procedure Colostomy in place Hx of flexible sigmoidoscopy Proctosigmoiditis Stricture of sigmoid colon Colon wall thickening Obesity, Class II, BMI 35-39.9 IBS (irritable bowel syndrome) History of colitis Gastric ulcer Interstitial cystitis Occipital neuralgia of right side History of suicidal ideation Anxiety Agoraphobia MDD (major depressive disorder) PTSD (post-traumatic stress disorder) Surgical History Hx of colonoscopy Hx of section H/O: hysterectomy Hx of cholecystectomy (~12/2022) Family History Family History Father Prostate cancer Maternal Uncle Colon cancer Maternal Grandmother Breast cancer Social History Social History Household Members: Spouse and Children Housing: House Do you presently have visiting nurse or other home services: Yes ([employer] to help with ADLs) Alcohol intake: never 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 Patient Tobacco Use Status: Never used Tobacco Substance Use Type: Marijuana service: No Physical Exam ED Vital Signs: Vital Signs - 24 hr 10/07/24 20:06 10/07/24 20:40 10/07/24 22:13 Temperature 98.4 F 98.6 F Pulse Rate 90 85 80 Respiratory Rate 18 16 14 Blood Pressure 149/84 H 131/76 122/76 Pulse Oximetry 99 98 Oxygen Delivery Method Room Air Room Air 10/07/24 22:46 10/08/24 01:34 Temperature 98.1 F 98.2 F Pulse Rate 80 70 Respiratory Rate 17 Blood Pressure 126/72 132/72 Pulse Oximetry 98 96 Oxygen Delivery Method Room Air Room Air BMI result Body Mass Index 41.8 Appearance: Alert. Oriented X3. No acute distress. Eyes: No pallor or icterus ENT: Pharynx normal. Oral Mucosa moist Neck: Normal inspection. Neck supple. CVS: Normal heart rate and rhythm. Pulses normal. Respiratory: No respiratory distress. Equal air entry bilateral, no wheezing/rales/rhonchi Abdomen: Soft and diffuse tenderness bowel sounds sluggish. no mass palpable, no CVA tenderness colostomy in place Skin: Skin warm and dry. Normal skin color. Normal skin turgor. Extremities: No lower extremity edema. No calf tenderness Neuro: Oriented X 3. No motor deficit. Course Course Course Narrative: RME: 43-year-old female recent colostomy bag placement in July presents to ED for no colostomy bag movement of fluids or stool since yesterday. Abdomen is significantly distended and hard. Labs EKG cat scan ordered. Patient is brought back to ER Medications Administered Discontinued Medications Generic Name Dose Route Start Last Admin Trade Name Freq PRN Reason Stop Dose Admin Diatrizoate Meglum/Diatrizoate Sod 30 ml 10/07/24 22:34 10/07/24 22:36 Diatrizoate Meglumine, Sodium 30 Ml Solution PO 07/08/25 22:35 30 ml ONCE ONE Administration Hydromorphone HCl 1 mg 10/07/24 20:53 10/07/24 21:03 Hydromorphone Hcl 1 Mg/Ml Syringe IVPUSH 10/07/24 20:54 1 mg ONCE ONE Administration Protocol Sodium Chloride 1,000 mls @ 999 mls/hr 10/07/24 20:49 10/07/24 22:14 Ns IV 10/07/24 21:49 Infused .Q1H1M ONE Infusion Iohexol 85 ml 10/07/24 22:36 10/07/24 22:37 Iohexol 350 Mg/Ml 100 Ml Infus..Btl IV 10/07/24 22:37 85 ml ONCE ONE Administration Ondansetron HCl 4 mg 10/07/24 20:49 10/07/24 21:03 Ondansetron Hcl 4 Mg/2 Ml Vial IVPUSH 10/07/24 20:50 4 mg ONCE ONE Administration Medical Decision Making Medical Decision Making [facility] Narrative: Patient with decreased colostomy output CT scan was done which was negative for any obstruction labs are stable patient advised to have more food with a roughage and follow up with as outpatient if not better Differential Diagnosis Differential Diagnoses: The differential diagnosis associated with the presentation includes Small bowel obstruction/constipation/ileus Lab Data [facility] Lab Attestation statement: I reviewed the patient's lab results. 10/07/24 20:52 10/07/24 20:52 Labs: Lab Results 10/07/24 Range/Units 20:52 WBC 9.2 (4.8-10.8) X10*3/uL RBC 4.88 (4.20-5.50) X10*6/uL Hgb 13.0 (12.0-16.0) g/dl Hct 38.5 (37.0-47.0) % MCV 78.9 L (80.0-98.0) fL MCH 26.6 L (27.0-33.0) pg MCHC 33.8 (31.0-35.0) g/dl RDW 13.7 (11.0-16.0) % Plt Count 408 H (160-400) X10*3/uL MPV 9.3 L (9.4-12.3) fL Immature Gran % (Auto) 0.3 (0.0-0.4) % Neut % (Auto) 53.8 (45-73) % Lymph % (Auto) 36.1 (20-40) % [place] % (Auto) 7.4 (2-11) % Eos % (Auto) 2.1 (0-4) % Baso % (Auto) 0.3 (0-2) % Lymph # (Auto) 3.3 (1.2-4.9) X10*3/uL [place] # (Auto) 0.7 (0.1-1.2) X10*3/uL Eos # (Auto) 0.2 (0.0-0.4) X10*3/uL Baso # (Auto) 0.0 (0.0-0.2) X10*3/uL Abs Immat Gran (auto) 0.03 (0.00-0.03) X10*3/uL Absolute Neuts (auto) 4.9 (2.0-8.3) x10*3/uL Absolute Nucleated RBC 0.000 (0.0-0.012) X10*3/uL Nucleated RBC % (auto) 0.0 (0.0-0.2) /100WBC Sodium 136 (135-145) mmol/L Potassium 4.3 (3.3-5.1) mmol/L Chloride 105 (96-108) mmol/L Carbon Dioxide 24 (22-29) mmol/L Anion Gap 11 L (12-20) BUN 10 (9-16) mg/dL Creatinine 0.72 (0.5-1.4) mg/dL Estim Creat Clear Calc 119.3 Estimated GFR > 60 Random Glucose 107 (60-115) mg/dL Lactic Acid 0.9 (0.5-2.0) mmol/L Calcium 8.6 (8.4-10.2) mg/dL Total Bilirubin 0.2 (0.0-1.0) mg/dL AST 22 (5-31) U/L ALT 23 (0-31) U/L Alkaline Phosphatase 107 (39-117) U/L Total Protein 7.5 (6.5-8.0) g/dL Albumin 4.1 (3.5-5.0) g/dL Lipase 25 (8-78) U/L Beta HCG, Quant < 2 mIU/mL Independent Interpretation I performed an independent interpretation of an: CT Scan Radiology Impression Discussion of test interpretation with radiology: I have reviewed the radiologist's reading. Radiologist Impression: [address] [address] [address] Scan Report Signed Patient: Paula Jules MR#: [id number] : 1980 Acct:[id number] Age/Sex: 43 / F ADM Date: 10/07/24 Loc: HO.ED Attending Dr: Ordering Physician: Kali Salcido Date of Service: 10/07/24 Procedure(s): CT abdomen pelvis w IV con Accession Number(s): [id number] cc: Kali Salcido; Janet Harding MD~ Report Number: [id number]: Total DLP = 935.00 mGy-cm CLINICAL HISTORY: No flow in colostomy bag. SBO? CT abdomen and pelvis with contrast Comparison: 09/08/2024 Findings: Lung bases are clear. No acute bony abnormalities. Left abdominal wall ventral hernia noted. No underlying bowel distention identified. Liver and spleen within normal limits. Pancreas and adrenal glands unremarkable. Cholecystectomy. No significant focal renal abnormalities. No renal stones or hydronephrosis. Abdominal aorta is normal in caliber. No free fluid or adenopathy in the pelvis. No diverticulitis. Appendix unremarkable. Hysterectomy. No adnexal abnormality. Impression: No acute process This document has been electronically signed by: Scooter Denson MD on 10/07/2024 23:48:4 Discharge Plan Discharge Clinical Impression: Abdominal pain, Constipation Patient Disposition: Home, Self-Care Instructions: Constipation (DC), Abdominal Pain (ED) Additional Instructions: No signs of bowel obstruction was seen in the cat scan Drink plenty of fluids and have more fibers you should get bowel movements soon Follow up with your surgeon or report to ER if pain gets worse Prescriptions: No Action esomeprazole magnesium 40 mg capsule,delayed release(DR/EC) 40 mg PO DAILY Qty: 30 5RF tramadol 50 mg tablet 50 mg PO BID PRN (Reason: pain) Qty: 12 0RF valacyclovir 500 mg tablet 500 mg PO DAILY Trintellix 20 mg tablet 20 mg PO DAILY lamotrigine 200 mg tablet 200 mg PO DAILY Rx Instructions: 200mg in morning, 25mg at night lamotrigine 25 mg tablet 50 mg PO BEDTIME Rx Instructions: 200mg in morning, 25mg at night sennosides [senna] 8.6 mg tablet 17.2 mg PO BEDTIME PRN (Reason: constipation) tamsulosin 0.4 mg capsule 0.4 mg PO BEDTIME docusate sodium [Colace] 100 mg capsule 100 mg PO BID Qty: 60 3RF polyethylene glycol 3350 [Miralax] 17 gram/dose powder 17 g PO DAILY Qty: 510 2RF bisacodyl 5 mg tablet,delayed release (DR/EC) 10 mg PO BEDTIME magnesium oxide 400 mg magnesium capsule 400 mg PO DAILY mirabegron [Myrbetriq] 50 mg tablet extended release 24 hr 50 mg PO DAILY fluticasone propionate 50 mcg/actuation [place],Suspension 2 spray INTRANASAL DAILY PRN (Reason: Allergy Symptoms) Rx Instructions: administer into each nostril lactulose 10 gram/15 mL Solution 20 g PO BID Qty: 1200 0RF pramoxine 1 % Foam 1 appl WI BID Qty: 15 2RF mesalamine 0.375 gram Capsule,Extended Release 24hr 1.5 g PO DAILY Qty: 90 0RF ondansetron 4 mg tablet,disintegrating 4 mg PO Q8H PRN (Reason: nausea and vomiting) Qty: 30 1RF metoclopramide HCl [Reglan] 10 mg tablet 10 mg PO Q6H PRN (Reason: nausea and vomiting) Qty: 30 0RF famotidine 20 mg tablet 20 mg PO BID hydroxyzine HCl 25 mg tablet 25 mg PO BEDTIME clonazepam 1 mg tablet 1 mg PO TID cholecalciferol (vitamin D3) 125 mcg (5,000 unit) capsule 125 mcg PO DAILY Qty: 90 3RF Citrucel 500 mg tablet 500 mg PO DAILY Qty: 90 2RF Rx Instructions: take it with full glass of water eszopiclone [Lunesta] 3 mg tablet 3 mg PO BEDTIME Interventions: ED Discharge Assessment Last Done: 10/08/24 01:34 Discharge Date/Time: 10/08/24 01:36 Print Language: Setswana
[2024-10-07 20:40] VITALS: BP 131/76; PULSE 85; RESP 16; TEMP 37; O2SAT 98
[2024-10-07 20:57] LABS: Hematocrit 38.5 % (37.0-47.0); Hemoglobin 13.0 g/dl (12.0-16.0); Imm Gran Abs Auto 0.03 X10*3/uL (0.00-0.03); Imm Gran Pct Auto 0.3 % (0.0-0.4); Lymphocytes Absolute Auto 3.3 X10*3/uL (1.2-4.9); MANUAL DIFF FLAG NO; Mean Corpuscular HGB Conc 33.8 g/dl (31.0-35.0); Mean Corpuscular Hemoglobin 26.6 pg (27.0-33.0); Mean Corpuscular Volume 78.9 fL (80.0-98.0); NRBC Abs Auto 0.000 X10*3/uL (0.0-0.012); NRBC Pct Auto 0.0 /100WBC (0.0-0.2); Platelet Count 408 X10*3/uL (160-400); Red Blood Count 4.88 X10*6/uL (4.20-5.50); White Blood Count 9.2 X10*3/uL (4.8-10.8)
[2024-10-07 21:18] LABS: Alanine Aminotransferase 23 U/L (0-31); Albumin Level 4.1 g/dL (3.5-5.0); Alkaline Phosphatase 107 U/L (39-117); Anion Gap 11 (12-20); Aspartate Amino Transferase 22 U/L (5-31); Blood Urea Nitrogen 10 mg/dL (9-16); Calcium 8.6 mg/dL (8.4-10.2); Carbon Dioxide 24 mmol/L (22-29); Chloride 105 mmol/L (96-108); Creatinine Clr Calc Pharmacy 119.3; Estimated Glomerular Filt Rate > 60; Lipase 25 U/L (8-78); Potassium 4.3 mmol/L (3.3-5.1); Sodium 136 mmol/L (135-145); Total Protein 7.5 g/dL (6.5-8.0)
[2024-10-07 22:13] VITALS: BP 122/76; PULSE 80; RESP 14
[2024-10-07] MEDS: iohexoL 350 MG/ML 100 ML INFUS..BTL 85 ML IV (22:37)
[2024-10-07 22:46] VITALS: BP 126/72; PULSE 80; TEMP 36.7; O2SAT 98
[2024-10-08 01:34] VITALS: BP 132/72; PULSE 70; RESP 17; TEMP 36.8; O2SAT 96
== END 2024-10-08 01:36 | disposition home or self-care (01) ==
PROVIDERS: Physician Assistant; Emergency Provider Internal Medicine; PCP Internal Medicine
DX: R10.9 Unspecified abdominal pain (principal); K59.00 Constipation, unspecified; Z93.3 Colostomy status
CPT/HCPCS: 36415; 74177; 80053; 83605; 83690; 84702; 85025; 96361; 96374; 96375; 99284; 99285; J1171; J2405; Q9967

== ENCOUNTER → 2024-10-07 22:30 | Outpatient (BNV) | payer OTHER, SELFPAY | PROVIDERS: Emergency Provider Internal Medicine; PCP Internal Medicine; Visit Provider Radiology Diagnostic Radiology | DX: R14.0 Abdominal distension (gaseous) (principal) | CPT/HCPCS: 74177 ==

== ENCOUNTER 2024-10-30 21:01 | Emergency (ER) | payer OTHER, SELFPAY ==
--- NOTE | 2024-10-30 | ECG_ITS ---
Test Reason : zofran increase Blood Pressure : */* mmHG Vent. Rate : 79 BPM Atrial Rate : 79 BPM P-R Int : 132 ms QRS Dur : 90 ms QT Int : 368 ms P-R-T Axes : -11 43 28 degrees QTcB Int : 421 ms Normal sinus rhythm Normal ECG When compared with ECG of 31-Jul-2024 19:06, No significant change was found Referred By: Generic ED Physician Electronically Signed By: SELENE HUTTON MD
--- NOTE | ~2024-10-30 | CT_ITS ---
CLINICAL HISTORY: abd pain, distention, R flank pain CT abdomen and pelvis without contrast Comparison: CT/SR - CT ABDOMEN PELVIS W IV CON - 10/07/24 22:30 EDT Findings: No consolidation or effusion. Hepatomegaly. No urolithiasis or hydronephrosis. Redemonstrated left lower quadrant colostomy. No bowel obstruction. Fat containing umbilical hernia. Mildly prominent mesenteric nodes in the right abdomen, may be reactive however are nonspecific. Scattered colonic diverticulosis without diverticulitis or colitis. No evidence for appendicitis No acute fracture. Postcholecystectomy. IMPRESSION: No acute findings. Additional findings as described. This document has been electronically signed by: Seymour Bowers MD on 10/30/2024 23:59:15
[2024-10-30 21:42] VITALS: BP 153/73; PULSE 85; RESP 18; TEMP 37.2; O2SAT 98; BMI 41.8
[2024-10-30 22:15] LABS: MANUAL DIFF FLAG NO
[2024-10-30 22:17] LABS: Hematocrit 38.2 % (37.0-47.0); Hemoglobin 13.3 g/dl (12.0-16.0); Imm Gran Abs Auto 0.03 X10*3/uL (0.00-0.03); Imm Gran Pct Auto 0.3 % (0.0-0.4); Lymphocytes Absolute Auto 3.1 X10*3/uL (1.2-4.9); Mean Corpuscular HGB Conc 34.8 g/dl (31.0-35.0); Mean Corpuscular Hemoglobin 27.0 pg (27.0-33.0); Mean Corpuscular Volume 77.6 fL (80.0-98.0); NRBC Abs Auto 0.000 X10*3/uL (0.0-0.012); NRBC Pct Auto 0.0 /100WBC (0.0-0.2); Platelet Count 396 X10*3/uL (160-400); Red Blood Count 4.92 X10*6/uL (4.20-5.50); White Blood Count 9.0 X10*3/uL (4.8-10.8)
[2024-10-30 22:34] LABS: Albumin Level 4.5 g/dL (3.5-5.0); Alkaline Phosphatase 123 U/L (39-117); Anion Gap 14 (12-20); Aspartate Amino Transferase 27 U/L (5-31); Blood Urea Nitrogen 14 mg/dL (9-16); Calcium 9.1 mg/dL (8.4-10.2); Carbon Dioxide 23 mmol/L (22-29); Chloride 106 mmol/L (96-108); Creatinine Clr Calc Pharmacy 116.0; Estimated Glomerular Filt Rate > 60; Potassium 4.1 mmol/L (3.3-5.1); Sodium 139 mmol/L (135-145); Total Protein 8.0 g/dL (6.5-8.0)
[2024-10-30 22:45] LABS: Alanine Aminotransferase 38 U/L (0-31)
--- NOTE | 2024-10-30 23:02 | ED.ABDPAIN ---
HPI - Abdominal Pain General Chief Complaint: Abdominal Pain Stated Complaint: nausea, abd pain, lower extremity pain Time Seen by Provider: 10/30/24 22:44 Source: patient Mode of arrival: ambulatory Limitations: no limitations History of Present Illness ED Provider: Dr. Beena Hudson HPI narrative: Patient comes to the emergency room with abdominal discomfort. Patient states that she has some bloating, right-sided flank pain, very vague symptoms. Patient was here a proximally 2 weeks ago with similar symptoms. Patient states that she feels very full when she eats small amounts. Denies any vomiting or diarrhea. Patient has a colostomy bag in the output has been appropriate. Related Data Home Medications ?Medication ?Instructions ?Recorded ?Confirmed lamotrigine 200 mg tablet 200 mg PO DAILY 01/02/23 09/17/24 valacyclovir 500 mg tablet 500 mg PO DAILY 01/02/23 09/17/24 vortioxetine 20 mg tablet 20 mg PO DAILY 01/02/23 09/17/24 (Trintellix) clonazepam 1 mg tablet 1 mg PO TID 01/08/24 09/17/24 famotidine 20 mg tablet 20 mg PO BID 01/08/24 09/17/24 hydroxyzine HCl 25 mg tablet 25 mg PO BEDTIME 01/08/24 09/17/24 lamotrigine 25 mg tablet 50 mg PO BEDTIME 01/08/24 09/17/24 bisacodyl 5 mg tablet,delayed 10 mg PO BEDTIME 07/25/24 09/17/24 release fluticasone propionate 50 2 spray intranasal DAILY PRN 07/25/24 09/17/24 mcg/actuation nasal Allergy Symptoms spray,suspension magnesium oxide 400 mg PO DAILY 07/25/24 09/17/24 mirabegron 50 mg tablet,extended 50 mg PO DAILY 07/25/24 09/17/24 release 24 hr (Myrbetriq) eszopiclone 3 mg tablet (Lunesta) 3 mg PO BEDTIME 08/06/24 09/17/24 sennosides 8.6 mg tablet (senna) 17.2 mg PO BEDTIME PRN constipation 08/12/24 09/17/24 tamsulosin 0.4 mg capsule 0.4 mg PO BEDTIME 08/12/24 09/17/24 Previous Rx's ?Medication ?Instructions ?Recorded cholecalciferol (vitamin D3) 125 125 mcg PO DAILY #90 caps 05/30/24 mcg (5,000 unit) capsule methylcellulose (laxative) 500 mg 500 mg PO DAILY #90 tabs 05/30/24 tablet (Citrucel) lactulose 10 gram/15 mL oral 20 g (30 mL) PO BID #1,200 mL 08/01/24 solution mesalamine 0.375 gram 1.5 g (4 x 0.375 gram) PO DAILY 08/01/24 capsule,extended release 24 hr #90 caps ondansetron 4 mg disintegrating 4 mg PO Q8H PRN nausea and 08/01/24 tablet vomiting #30 tabs pramoxine 1 % topical foam 1 appl UT BID #15 grams 08/01/24 docusate sodium 100 mg capsule 100 mg PO BID #60 caps 08/20/24 (Colace) polyethylene glycol 3350 17 17 g PO DAILY #510 grams 08/20/24 gram/dose oral powder (Miralax) esomeprazole magnesium 40 mg 40 mg PO DAILY #30 caps 09/09/24 capsule,delayed release metoclopramide HCl 10 mg tablet 10 mg PO Q6H PRN nausea and 09/09/24 (Reglan) vomiting #30 tabs tramadol 50 mg tablet 50 mg PO BID PRN pain #12 tabs 09/24/24 hyoscyamine sulfate 0.125 mg tablet 0.125 mg PO QID PRN dyspepsia #14 10/31/24 tabs metoclopramide HCl 5 mg tablet 5 mg PO Q8H PRN nausea and 10/31/24 vomiting #14 tabs Allergies Allergy/AdvReac Type Severity Reaction Status Date / Time propofol Allergy Intermediate Itching Verified 10/30/24 21:49 morphine Allergy Mild Itching Verified 10/30/24 21:49 Review of Systems Review of Systems Constitutional : No Weight loss, No Fever, No Chills, No Night Sweats, No Fatigue, No Malaise ENT/Mouth : No Hearing loss, No Ear Pain, No Nasal Congestion, No Sinus Pain, No Hoarseness, No sore throat, No Rhinorrhea, No Swallowing Difficulty Eyes: No Eye Pain, No Swelling, No Redness, No Foreign Body, No Discharge, No Vision Changes Cardiovascular : No Chest Pain, No SOB, No Dyspnea on Exertion, No Orthopnea, No Edema, No Palpitations Respiratory : No Cough, No Sputum, No Wheezing, No Smoke Exposure, No Dyspnea Gastrointestinal : Denies vomiting or diarrhea, complaining a bit of nausea, complaining of abdominal distention, reports appropriate colostomy all put Genitourinary : no irregular bleeding, No Dysuria, No Urinary Frequency, No Hematuria, No Urinary Incontinence, No Urgency, No Flank Pain, No Urinary Flow Changes, No Hesitancy Musculoskeletal : No joint pain, No Myalgias, No Joint Swelling Skin : No Skin Lesions, No rash Neuro : No Weakness, No Numbness, No Paresthesias, No Loss of Consciousness, No Dizziness, No Headache Psych : No Anxiety/Panic, No Depression, No SI/HI/AH/VH, No Social Issues, Heme/Lymph: No Bruising, No Bleeding,No Lymphadenopathy Endocrine : No Polyuria, No Polydipsia, No Temperature Intolerance [facility] Past Medical History Medical History Postprocedural seroma of skin and subcutaneous tissue following other procedure Colostomy in place Hx of flexible sigmoidoscopy Proctosigmoiditis Stricture of sigmoid colon Colon wall thickening Obesity, Class II, BMI 35-39.9 IBS (irritable bowel syndrome) History of colitis Gastric ulcer Interstitial cystitis Occipital neuralgia of right side History of suicidal ideation Anxiety Agoraphobia MDD (major depressive disorder) PTSD (post-traumatic stress disorder) Surgical History Hx of colonoscopy Hx of section H/O: hysterectomy Hx of cholecystectomy (~12/2022) Family History Family History Father Prostate cancer Maternal Uncle Colon cancer Maternal Grandmother Breast cancer Social History Social History Household Members: Spouse and Children Housing: House Do you presently have visiting nurse or other home services: Yes ([employer] to help with ADLs) Alcohol intake: never 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 Patient Tobacco Use Status: Never used Tobacco Substance Use Type: Marijuana Advance Directives: Yes Advance Directives Information Provided: No Advance Directives on File: No service: No Physical Exam ED Exam Exam: Appearance: Alert. Oriented X3. No acute distress. Eyes: Pupils equal, round and reactive to light. ENT: Pharynx normal. Neck: Normal inspection. Neck supple. No lymph nodes noted. No crepitus CVS: Normal heart rate and rhythm. Pulses normal. Normal S1 and S2 Respiratory: No respiratory distress. Breath sounds normal. No Wheezing. No rales Abdomen: Soft, nondistended, nontender, colostomy bag inappropriate place Skin: Skin warm and dry. Normal skin color. Normal skin turgor. Extremities: No lower extremity edema. No Lacerations. No Rash Neuro: Oriented X 3. No motor deficit. No sensory deficit. Moving all extremities. No slurred speech. CN 2 through 12 grossly intact Psych: calm, cooperative, normal affect Vital Signs: Vital Signs - 24 hr 10/30/24 21:42 Temperature 98.9 F Pulse Rate 85 Respiratory Rate 18 Blood Pressure 153/73 H Pulse Oximetry 98 Oxygen Delivery Method Room Air BMI result Body Mass Index 41.8 Course Course Course Narrative: Patient reports generalized abdominal discomfort. CT scan of the abdomen pending Labs have been done Medical Decision Making Medical Decision Making [facility] Narrative: My interpretation of labs: No significant abnormality in patient's hematology and chemistry, LFTs normal Patient has a history of appendectomy and cholecystectomy. CT scan does not show any acute findings, nonspecific mesenteric adenopathy Differential Diagnosis Differential Diagnoses: The differential diagnosis associated with the presentation includes (SBO, viral illness, anxiety about health) Admission/Observation Consideration of admission/observation: Escalation of care including admission/observation considered (Given patient's recurrent complains, observation was considered) Lab Data [facility] Lab Attestation statement: I reviewed the patient's lab results. 10/30/24 22:08 10/30/24 22:08 Labs: Lab Results 10/30/24 Range/Units 22:08 WBC 9.0 (4.8-10.8) X10*3/uL RBC 4.92 (4.20-5.50) X10*6/uL Hgb 13.3 (12.0-16.0) g/dl Hct 38.2 (37.0-47.0) % MCV 77.6 L (80.0-98.0) fL MCH 27.0 (27.0-33.0) pg MCHC 34.8 (31.0-35.0) g/dl RDW 14.2 (11.0-16.0) % Plt Count 396 (160-400) X10*3/uL MPV 9.3 L (9.4-12.3) fL Immature Gran % (Auto) 0.3 (0.0-0.4) % Neut % (Auto) 57.3 (45-73) % Lymph % (Auto) 34.6 (20-40) % Ralls % (Auto) 6.7 (2-11) % Eos % (Auto) 0.9 (0-4) % Baso % (Auto) 0.2 (0-2) % Lymph # (Auto) 3.1 (1.2-4.9) X10*3/uL Ralls # (Auto) 0.6 (0.1-1.2) X10*3/uL Eos # (Auto) 0.1 (0.0-0.4) X10*3/uL Baso # (Auto) 0.0 (0.0-0.2) X10*3/uL Abs Immat Gran (auto) 0.03 (0.00-0.03) X10*3/uL Absolute Neuts (auto) 5.1 (2.0-8.3) x10*3/uL Absolute Nucleated RBC 0.000 (0.0-0.012) X10*3/uL Nucleated RBC % (auto) 0.0 (0.0-0.2) /100WBC Sodium 139 (135-145) mmol/L Potassium 4.1 (3.3-5.1) mmol/L Chloride 106 (96-108) mmol/L Carbon Dioxide 23 (22-29) mmol/L Anion Gap 14 (12-20) BUN 14 (9-16) mg/dL Creatinine 0.74 (0.5-1.4) mg/dL Estim Creat Clear Calc 116.0 Estimated GFR > 60 Random Glucose 110 (60-115) mg/dL Calcium 9.1 (8.4-10.2) mg/dL Total Bilirubin 0.2 (0.0-1.0) mg/dL AST 27 (5-31) U/L ALT 38 H (0-31) U/L Alkaline Phosphatase 123 H (39-117) U/L Total Protein 8.0 (6.5-8.0) g/dL Albumin 4.5 (3.5-5.0) g/dL Lipase 19 (8-78) U/L Beta HCG, Quant < 2 mIU/mL Independent Interpretation I performed an independent interpretation of an: CT Scan Radiology Impression Discussion of test interpretation with radiology: I have reviewed the radiologist's reading. Radiologist Impression: No consolidation or effusion. Hepatomegaly. No urolithiasis or hydronephrosis. Redemonstrated left lower quadrant colostomy. No bowel obstruction. Fat containing umbilical hernia. Mildly prominent mesenteric nodes in the right abdomen, may be reactive however are nonspecific. Scattered colonic diverticulosis without diverticulitis or colitis. No evidence for appendicitis No acute fracture. Postcholecystectomy. IMPRESSION: No acute findings. Additional findings as described. Medications Administered Discontinued Medications Generic Name Dose Route Start Last Admin Trade Name Freq PRN Reason Stop Dose Admin Ketorolac Tromethamine 30 mg 10/30/24 22:57 10/31/24 00:05 Ketorolac Tromethamine 30 Mg/Ml Vial IVPUSH 10/30/24 22:58 30 mg ONCE ONE Administration Ondansetron HCl 4 mg 10/30/24 22:57 10/31/24 00:05 Ondansetron Hcl 4 Mg/2 Ml Vial IVPUSH 10/30/24 22:58 4 mg ONCE ONE Administration Critical Care Time Critical Care Time Critical Care Time: Yes Total Critical Care Time: 35 Attestation: I have personally provided critical care time. Time includes review of lab data, radiology results, discussion with consultants, and monitoring for potential decompensation. Intervention performed as documented. Discharge Plan Discharge Clinical Impression: Abdominal pain, Nausea Patient Disposition: Home, Self-Care Instructions: Abdominal Pain (ED) Additional Instructions: Please follow-up with your primary care physician tomorrow. If you have any worsening or new symptoms, please return to the emergency room or call 911 Prescriptions: New hyoscyamine sulfate 0.125 mg tablet 0.125 mg PO QID PRN (Reason: dyspepsia) Qty: 14 0RF metoclopramide HCl 5 mg tablet 5 mg PO Q8H PRN (Reason: nausea and vomiting) Qty: 14 0RF No Action esomeprazole magnesium 40 mg capsule,delayed release(DR/EC) 40 mg PO DAILY Qty: 30 5RF tramadol 50 mg tablet 50 mg PO BID PRN (Reason: pain) Qty: 12 0RF valacyclovir 500 mg tablet 500 mg PO DAILY Trintellix 20 mg tablet 20 mg PO DAILY lamotrigine 200 mg tablet 200 mg PO DAILY Rx Instructions: 200mg in morning, 25mg at night lamotrigine 25 mg tablet 50 mg PO BEDTIME Rx Instructions: 200mg in morning, 25mg at night sennosides [senna] 8.6 mg tablet 17.2 mg PO BEDTIME PRN (Reason: constipation) tamsulosin 0.4 mg capsule 0.4 mg PO BEDTIME docusate sodium [Colace] 100 mg capsule 100 mg PO BID Qty: 60 3RF polyethylene glycol 3350 [Miralax] 17 gram/dose powder 17 g PO DAILY Qty: 510 2RF bisacodyl 5 mg tablet,delayed release (DR/EC) 10 mg PO BEDTIME magnesium oxide 400 mg magnesium capsule 400 mg PO DAILY mirabegron [Myrbetriq] 50 mg tablet extended release 24 hr 50 mg PO DAILY fluticasone propionate 50 mcg/actuation [place],Suspension 2 spray INTRANASAL DAILY PRN (Reason: Allergy Symptoms) Rx Instructions: administer into each nostril lactulose 10 gram/15 mL Solution 20 g PO BID Qty: 1200 0RF pramoxine 1 % Foam 1 appl UT BID Qty: 15 2RF mesalamine 0.375 gram Capsule,Extended Release 24hr 1.5 g PO DAILY Qty: 90 0RF ondansetron 4 mg tablet,disintegrating 4 mg PO Q8H PRN (Reason: nausea and vomiting) Qty: 30 1RF metoclopramide HCl [Reglan] 10 mg tablet 10 mg PO Q6H PRN (Reason: nausea and vomiting) Qty: 30 0RF famotidine 20 mg tablet 20 mg PO BID hydroxyzine HCl 25 mg tablet 25 mg PO BEDTIME clonazepam 1 mg tablet 1 mg PO TID cholecalciferol (vitamin D3) 125 mcg (5,000 unit) capsule 125 mcg PO DAILY Qty: 90 3RF Citrucel 500 mg tablet 500 mg PO DAILY Qty: 90 2RF Rx Instructions: take it with full glass of water eszopiclone [Lunesta] 3 mg tablet 3 mg PO BEDTIME Print Language: Georgian
[2024-10-30 23:23] LABS: Lipase 19 U/L (8-78)
[2024-10-31 01:08] VITALS: BP 120/65; PULSE 73; RESP 16; TEMP 36.7; O2SAT 97
[2024-10-31 02:06] LABS: Appearance Urine Cloudy; Glucose Urine UA Negative (Negative); PH 5.5 (5.0-9.0); Specific Gravity - Urine 1.025 (1.005-1.025)
[2024-10-31 02:15] VITALS: BP 131/68; PULSE 81; RESP 16; TEMP 36.6; O2SAT 98
== END 2024-10-31 02:16 | disposition home or self-care (01) ==
PROVIDERS: Emergency Provider Emergency Medicine; PCP Internal Medicine
DX: R10.2 Pelvic and perineal pain (principal); R11.0 Nausea; M79.605 Pain in left leg; M79.604 Pain in right leg; R10.13 Epigastric pain; Z79.899 Other long term (current) drug therapy
CPT/HCPCS: 36415; 74176; 80053; 81001; 83690; 84702; 85025; 93005; 96374; 96375; 99284; 99285; J1885; J2405

== ENCOUNTER → 2024-10-30 22:31 | Outpatient (BNV) | payer OTHER, SELFPAY | PROVIDERS: Emergency Provider Emergency Medicine; PCP Internal Medicine; Visit Provider Internal Medicine Cardiovascular Disease | DX: Z13.6 Encounter for screening for cardiovascular disorders (principal) | CPT/HCPCS: 93010 ==

== ENCOUNTER → 2024-10-30 22:57 | Outpatient (BNV) | payer OTHER, SELFPAY | PROVIDERS: Emergency Provider Emergency Medicine; PCP Internal Medicine; Visit Provider Radiology Diagnostic Radiology | DX: R10.9 Unspecified abdominal pain (principal) | CPT/HCPCS: 74176 ==

== ENCOUNTER 2024-10-31 10:11 | Outpatient (AMB) | payer OTHER, SELFPAY ==
--- OUTSIDE RECORDS SUMMARY | 2024-10-29 08:29 | XMS_ITS | Encounter Summary ---
Author Organization [facility] Address [address] [place] [address] Care Team Providers Care Hydraulic Design Engineer Name Role Phone Janet Harding MD Primary Care Provider [phone] Reason for Referral * Imaging (Routine) - Pending Review Specialty Diagnoses / Procedures Referred By Contac t Referred To Contact Radiology Diagnoses Gait abnormality Migraine without status migrainosus, not intractable, unspecified migraine type Procedures MR Cervical Spine wo and w Contrast Yossi Marina MD [address] [address] Phone: tel: fax: [facility] Referral ID Status Reason Start Date Expiration Date V isits Requested Visits Authorized [id number] Pending Review 09/26/2024 09/26/2025 1 1 Reason for Visit * Imaging (Routine) - Pending Review Specialty Diagnoses / Procedures Referred By Contac t Referred To Contact Radiology Diagnoses Gait abnormality Migraine without status migrainosus, not intractable, unspecified migraine type Procedures MR Cervical Spine wo and w Contrast Yossi Marina MD [address] [address] Phone: tel: fax: [facility] Referral ID Status Reason Start Date Expiration Date V isits Requested Visits Authorized [id number] Pending Review 09/26/2024 09/26/2025 1 1 Encounter Details Date Type Department Care Team (Latest Contact Info) Description 10/29/2024 8:29 AM EDT - 10/29/2024 11:59 PM EDT Hospital Encounter [facility] MRI [address] [place] [address] Gait abnormality; Migraine without status migrainosus, not intractable, unspecified migraine type Discharge Disposition: Home or Self Care Social History Tobacco Use Types Packs/Day Years [...] on file documented as of this encounter Medications at Time of Discharge bisacodyL (DULCOLAX) 5 mg EC tablet Take 2 tabs by mouth right before beginning bowel prep. Follow instructions given by office for timing. 3 calcitrioL (ROCALTROL) 0.25 mcg capsule Take by mouth 1 (one) time each day. clonazePAM (KlonoPIN) 1 mg tablet Take 1 Tablet by mouth 3 times daily. cyanocobalamin (VITAMIN B-12) 100 mcg tablet Take 1 tablet (100 mcg total) by mouth 1 (one) time each day. esomeprazole (NexIUM) [address] capsule Take 1 capsule (40 mg total) by mouth 1 (one) time each day before breakfast. Do not open capsule. famotidine (PEPCID) 20 mg tablet TAKE 1 TABLET BY MOUTH TWICE A DAY 180 tablet 5 fluticasone propionate (FLONASE) 50 mcg/actuation nasal spray Administer into each nostril. by Nasal route. - Nasal hydrOXYzine HCL (ATARAX) 10 mg tablet Take by mouth. lamoTRIgine (LaMICtal) 200 mg tablet Take 250 mg by mouth daily. magnesium citrate solution Take by mouth 1 (one) time. magnesium, amino acid chelate, 133 mg tablet Take 1 tablet (133 mg total) by mouth 2 (two) times a day. ondansetron ODT (ZOFRAN-ODT) 4 mg disintegrating tablet Take 1 Tablet by mouth every 8 hours as needed for Nausea. 3 pantoprazole (PROTONIX) 40 mg EC tablet TAKE 1 TABLET BY MOUTH IN THE MORNING ON EMPTY STMACH 30 MINUTES BEFORE A MEAL 90 tablet 3 5 polyethylene glycol (PEG) 17 gram/dose oral powder 5 tamsulosin (FLOMAX) 0.4 mg 24 hr capsule Take 1 capsule (0.4 mg total) by mouth. at bedtime 5 traMADoL (Ultram) 50 mg tablet Take 1 Tablet by mouth 4 times daily. valACYclovir (VALTREX) 500 mg tablet TAKE 1 TABLET BY MOUTH EVERY DAY 4 vortioxetine (TRINTELLIX) 20 mg tablet Take by mouth daily. zolpidem tartrate (AMBIEN ORAL) Take 10 mg by mouth at bedtime. - Oral documented as of this encounter Discharge Disposition Disposition Code Departure Means Destination Home or Self Care documented in this encounter Plan of Treatment Upcoming Encounters Date Type Department Care Team (Late st Contact Info) Description 11/25/2024 2:40 PM EDT Consult Gastroenterology - [address] [facility] 299 [facility] [address] [place] [address] Julian Sanchez MD 299 [facility] [address] [place] [address] 03/24/2025 11:30 AM EST Office Visit Internal Medicine - [facility] [address] [place], [place] [phone] Janet Harding MD [address] [place], [place] 03/31/2025 11:00 AM EST Office Visit [facility] 175 [facility] [address] [place] [id number] Rocío Watkins PA 175 [facility] [address] [place] [address] documented as of this encounter Procedures Procedure Name Priority Date/Time Associated Diagnosis Comments MR CERVICAL SPINE WO AND W CONTRAST Routine 10/29/2024 10:30 AM EDT Gait abnormality Migraine without status migrainosus, not intractable, unspecified migraine type documented in this encounter Results * MR Cervical Spine wo and w Contrast (10/29/2024 10:30 AM EDT) Anatomical Region Laterality Modality C-spine, Spine Magnetic Resonan ce 10/29/2024 3:57 PM EDT Impressions 10/29/2024 4:00 PM EDT Stable exam. No evidence of demyelination in the cervical spine -------- FINAL REPORT -------- Dictated By: KRANTHI STARKS Dictated Date: 10/29/2024 15:57 ET Assigned Physician: KRANTHI STARKS Reviewed and Electronically Signed By: KRANTHI STARKS Signed Date: 10/29/2024 16:00 ET Workstation ID: [id number] Transcribed By: Self Edit Transcribed Date: 10/29/2024 15:57 ET Narrative 10/29/2024 4:00 PM EDT PROCEDURE: Cervical spine MRI INDICATION: White matter lesion TECHNIQUE: Multiplanar, multisequence MRI of the Cervical spine without and with contrast. 20 mL Dotarem injected intravenously without complication from a 20 mL vial. COMPARISON: 06/20/2023. FINDINGS: Cervical alignment is unchanged. No fracture or suspicious marrow replacing lesion. Mild degenerative loss of normal disc height and signal at C5-6 and C6-7, similar compared to prior, with associated endplate spurring. Mild facet arthritis at C7-T1 bilaterally. Cervical cord is normal in signal and morphology. No epidural collection or mass is seen within the spinal canal. No abnormal intrathecal enhancement. Paraspinal muscles are within normal limits. Foramen magnum is normal. Findings by level: C2-C3: No focal disc protrusion, foraminal stenosis, or spinal canal stenosis. C3-C4: No focal disc protrusion, foraminal stenosis, or spinal canal stenosis. C4-C5: No focal disc protrusion, foraminal stenosis, or spinal canal stenosis. C5-C6: No focal disc protrusion, foraminal stenosis, or spinal canal stenosis. C6-C7: No focal disc protrusion, foraminal stenosis, or spinal canal stenosis. C7-T1: No focal disc protrusion, foraminal stenosis, or spinal canal stenosis. Procedure Note Kranthi Starks MD - 10/29/2024 PROCEDURE: Cervical spine MRI INDICATION: White matter lesion TECHNIQUE: Multiplanar, multisequence MRI of the Cervical spine withoutand with contrast. 20 mL Dotarem injected intravenously withoutcomplication from a 20 mL vial. COMPARISON: 06/20/2023. FINDINGS: Cervical alignment is unchanged. No fracture or suspicious marrow replacing lesion. Mild degenerative loss of normal disc height and signal at C5-6 and C6-7,similar compared to prior, with associated endplate spurring. Mild facet arthritis at C7-T1 bilaterally. Cervical cord is normal in signal and morphology. No epidural collectionor mass is seen within the spinal canal. No abnormal intrathecalenhancement. Paraspinal muscles are within normal limits. Foramen magnum is normal. Findings by level: C2-C3: No focal disc protrusion, foraminal stenosis, or spinal canalstenosis. C3-C4: No focal disc protrusion, foraminal stenosis, or spinal canalstenosis. C4-C5: No focal disc protrusion, foraminal stenosis, or spinal canalstenosis. C5-C6: No focal disc protrusion, foraminal stenosis, or spinal canalstenosis. C6-C7: No focal disc protrusion, foraminal stenosis, or spinal canalstenosis. C7-T1: No focal disc protrusion, foraminal stenosis, or spinal canalstenosis. IMPRESSION: Stable exam. No evidence of demyelination in the cervical spine -------- FINAL REPORT -------- Dictated By: KRANTHI STARKS Dictated Date: 10/29/2024 15:57 ET Assigned Physician: KRANTHI STARKS Reviewed and Electronically Signed By: KRANTHI STARKS Signed Date: 10/29/2024 16:00 ET Workstation ID: [id number] Transcribed By: Self Edit Transcribed Date: 10/29/2024 15:57 ET Yossi Marina MD IM MRI PROCEDURES Final Result documented in this encounter Visit Diagnoses Diagnosis Gait abnormality Abnormality of gait Migraine without status migrainosus, not intractable, unspecified migraine type documented in this encounter Administered Medications Inactive Administered Medications - up to 3 most recent administrations Medication Order MAR Action Action Date Dose Rate Site gadoterate meglumine (CLARISCAN, DOTAREM) injection 20 mL 20 mL, intravenous, Once in imaging, Starting on Sun10/29/24 at 1030, For 1 dose Given 10/29/2024 10:30 AM EDT 20 mL documented in this encounter Orders Medications Ordered That [place] ht Not Have Been Administered Count Last Ordered Date First Ordered Date gadoterate meglumine (SYDNI CAN, DOTAREM) injection 20 mL 1 10/29/2024 documented in this encounter Care Teams Hydraulic Design Engineer Relationship Specialty Start Date End Date Janet Harding MD [address] [place] [address] PCP - General Internal Medicine 08/04/24 documented as of this encounter
--- OUTSIDE RECORDS SUMMARY | 2024-10-31 10:20 | XMS_ITS | Clinical Summary ---
Author Organization [facility] Address [address] [place] [address] Care Team Providers Care Cloud Developer Name Role Phone Nori Posey MD Primary Care Provider [phone] Allergies Active Allergy Reactions Criticality Noted Date Comments [place] 08/30/2023 Medications Medication Sig Dispensed Refills Start [...] (P ap Smear) 2002 Influenza Vaccine (#1) 2024 DTap / Tdap / Td (2 - Td or Tdap) 05/04/2033 024 Pneumococcal Vaccine Aged Out No long er eligible based on patient's age to complete this topic RSV Ped < 20 months Aged Out No longe r eligible based on patient's age to complete this topic Care Teams Cloud Developer Relationship Specialty Start Date End Date Nori Posey MD [address] [place] [id number] PCP - General Internal Medicine 08/01/23
--- OUTSIDE RECORDS SUMMARY | 2024-10-31 10:20 | XMS_ITS ---
Author Name [facility] Organization Unknown History of Medication Use Medication Directions Dispensed Refills Start Date End Date Stat us traMADol (ULTRAM) 50 MG tablet 07/26/2023 active hydrOXYzine (ATARAX) 25 MG tablet Take 1 tablet (25 mg total) by mouth every night at bedtime. 07/24/2023 active Trintellix 20 MG TABS tablet TAKE 1 TABLET BY MOUTH EVERY DAY IN THE MORNING 07/10/2023 active Problems Problem Status Onset Date Problem Type Date of Resoluti on Source Balance problem active EncounterDiagnosisAct CTTHNEMG White matter disease active EncounterDiagnosisAct CTTHNE MG Frequent falls active EncounterDiagnosisAct CTTHNEMG Care Team Organization Name Specialty Phone Email Start Date End [facility] Ismael Gary DO Primary Care 06/07/202210/31 [facility] YAHAIRA ARANDA Primary Care 02/07/2022 11/19/19 24
--- NOTE | 2024-10-31 10:21 | A.OFFVIS_ITS ---
Vital Signs 10/31/24 10:31 Height 5 ft 3 in Weight 235 lb BMI 41.6 BP 130/60 Blood Pressure Location Rt brachial Position Sitting Pulse 86 Pulse Source Pulse Oximeter Pulse Oximetry (%) 97 Oxygen Delivery Method Room Air Intake Visit Reasons: S/P colostomy sx progression. Intake Note: ESTABLISHED PATIENT for mgmt of GERD, constipation w/ associated abd pain. S/P colostomy w/ complications Chief Complaint; C/O severe abd pain, RLQ radiating into R Flank. Pt seen in ED yesterday. Advised that her colostomy was patent per CT scan and was sent home. Pt still dealing with sx. Pt also has new onset of abnormal sensation, feeling drunk when she eats anything regardless of what the contents are. Pt typically limited to 1 meal per day as she feels that she digests very slowly. Express Manager Required: No Accompanied by: Family/Other Allergies propofol Allergy (Intermediate, Verified 10/31/24 10:22) Itching morphine Allergy (Mild, Verified 10/31/24 10:22) Itching HPI HPI S/P colostomy sx progression.: Details: LAST VISIT: Interstitial cystitis GERD (gastroesophageal reflux disease) Postprandial diarrhea Postprandial abdominal bloating Transaminitis Plan So far we ruled out inflammatory bowel disease as well as pancreatic insufficiency. Increased liver enzymes were rule out any out immune disorders. Patient reports abdominal pain will check for chronic pancreatitis. Continues to have diarrhea. Will do GI panel, check for C diff, ova and parasite, fecal fat qualitative. Will send patient for liver ultrasound with elastography. Most likely this is related to bile spilling and inability to digest food. Will send patient script for cholestyramine to see if she can try it. Patient was also encouraged to increase fiber. Will send Citrucel patient can take 1-2 tablets daily. Encouraged patient to take also vitamin-D higher dose. Increase fluid intake and activity. Follow-up in 2 months, sooner on as needed basis. Patient is agreeable to this plan and verbalizes understanding of instructions. She was given the opportunity to ask questions and all questions answered. ? Thank you for allowing me to participate in her care Orders Hemoglobin A1c 05/30/24 Z83.3 Hepatitis A,B,C Profile 05/30/24 R79.89 Ceruloplasmin 05/30/24 R79.89 IRON PROFILE 05/30/24 D64.9 Lipase 05/30/24 R10.9 Liver Fibrosis Pnl 05/30/24 K76.0 Ferritin 05/30/24 R74.8 Mitochondrial Antibody 05/30/24 R79.89 Ova and Parasite 05/30/24 R19.7 GI Panel 05/30/24 R19.7 CDiff Gene PCR 05/30/24 R19.7 Alpha Fetoprotein 05/30/24 R79.89 Smooth Muscle Antibody 05/30/24 R79.89 Gamma Glutamyl Transpeptidase 05/30/24 R74.8 Fecal Fat Qualitative 05/30/24 R19.7 US abdomen keene w elastography 05/30/24 K76.0 New methylcellulose (laxative) (Citrucel) take it with full glass of water 500 mg PO DAILY 90 tabs 2RF K59.00 cholecalciferol (vitamin D3) 125 mcg PO DAILY 90 caps 3RF E55.9 cholestyramine-aspartame 4 gram no meds 1 hr before/4-6 hr after dose 4 grams PO QIDACHS 210 grams 3RF Discontinued cholecalciferol (vitamin D3) Discontinued Reason: Doctor's Order 50 mcg PO DAILY 90 caps 3RF R79.89 HOSPITAL ADMISSION 07/26/[address] ANNETTE VILLA This is a 43-year-old female with past medical history of FMD, constipation, this has cystitis, who presented to the emergency room overnight for constipation x6 days. Patient is established with outpatient Gastroenterology for irritable bowel syndrome with diarrhea, in typically takes cholestyramine as outpatient to help with chronic diarrhea. However, this time around his not been able to have any bowel movements x almost a week and could not pass gas x2 days. This is assoc with worsening abd pain, nausea, inability to tolerate PO. No fevers or chills. CT abdomen pelvis from yest shows wall thickening and narrowing of rectosigmoid with significant stool burden and mild distention prox to it. No radiographic signs of LBO. Pt has had varying degrees of wall thickness in this region on prev scans as well since 2022 at least. Denies taking any anti-diarrheals or bile acid sequestrant in the past couple of weeks. Was given mag citrate in ER and since then reports passed a little flatus. Labs with normal electrolytes and renal function. Pt reports having a colo at [facility] 2021 and was told about 2 colon ulcers . She is unsure of location. Does not recall being explicitly told re IBD diagnosis. Plan pt presenting with obstipation in the background of altered bowel habits x 2-3 years with reported ulcers in the colon - records from [facility] pending whether acute/transient injury vs chronic inflammatory vs ischemic ulcers on path. Imaging with prominent rectosigmoid thickening without overt obstruction but with significant fecal loading jimmie on right side. Ddx include inflammatory stricture vs chronic ischemic ([place]) vs ?? diverticular though no diverticular pockets noted radiographically. Abd exam today somewhat concerning. Plan: - Urgent diagnostic flex sig - to be done unprepped with gastroscope and water insufflation - Avoid laxatives or enemas - Mag oxide, fiber, bisacodyl and senna discontinued - Serial abd exams - Low threshold for repeat imaging if abd tenderness progresses - Appreciate surgical input COLONOSCOPY 07/26/2024 Findings: Mucosa: Significant wall edema leading to narrowing of rectosigmoid up till 30 cm. Beyond this, colon was relatively distended and promptly decompressed. Mucosa appeared normal in rectum but had superficial superficial aphthous ulceration and exudates in reticular pattern in sigmoid colon to the extent visualized. Cold forceps biopsies were obtained. Protruding lesions: * Medium internal hemorrhoids without stigmata of recent bleeding. Impression: 1. Abnormal colon mucosa 2. Internal and external hemorrhoids Recommendations: - Await path results - Consider trial of hydrocortisone 100mg/60 ml enema once daily x 14 days - Please also consider may bladder scans as pt with hx of chronic intersitital cystitis with urinary retention on exam OFFICE VISIT WITH GENERAL SURGERY She has this long history of diarrhea and constipation and her barium enema test suggest a stricture in the sigmoid. This was not obvious on flexible sigmoidoscopy although there was note of some edema in the area .. She is very the aspirate about her constipation, diarrhea and incontinence. She says that she would rather have a colostomy and she had stated this even last week I explained to her that even with a colostomy, she may have constipation problems as well as we are actually uncertain as to the etiology although there is note of some narrowing in her sigmoid without any tumor or lesion. She says that she has severe irritation in her anus and buttocks because of her incontinence whenever she has diarrhea and states that she has been wearing a diaper for 3 years now. I explained to her that her overall problems may be secondary to a functional problem with her colon rather than a real stricture. Even then, she says that colostomy we will help with her diarrhea and incontinence. She says she has would rather not wear diapers anymore. I explained to her the technique of hand assisted laparoscopic colostomy possible sigmoid resection. I reviewed the risks including but not limited to bleeding, infections, injury to other organs including bowel, urinary tract, stoma prolapse and hernia, inherent risks of anesthesia, as well as the benefits and alternatives. She understands and says she really wants to have this done as soon as possible. She understands that she may continue to have symptoms of abdominal pain and constipation with the colostomy. OFFICE VISIT WITH DR. PROCTOR (1) Irritable bowel syndrome (IBS): Status: Inactive She has a colostomy, and has known IBS. She has this episodes of severe diarrhea and constipation. Her abdominal exam is otherwise benign. Her issues are chronic but she wanted to be checked he could not get into the office. I assured her that currently her exam is benign. She is on her diarrhea phase of her IBS currently. I recommended to the ED staff to give her IV fluids for hydration as she had high output for 2 days. She may benefit from hyoscyamine for symptomatic relief. I will assist her into the GI office sooner as she says her next appointment will not be until October. ED VISIT 10/30/2024 HPI narrative: Patient comes to the emergency room with abdominal discomfort. Patient states that she has some bloating, right-sided flank pain, very vague symptoms. Kaila dawkins was here a proximally 2 weeks ago with similar symptoms. Patient states that she feels very full when she eats small amounts. Denies any vomiting or diarrhea. Patient has a colostomy bag in the output has been appropriate. TODAY'S VISIT As mentioned above in the series of events since last time seen patient was seen in the ED with severe constipation. Patient was found to have narrowing from possible inflammation of her sigmoid colon. Patient ultimately had sigmoidoscopy without stricture, however she did had inflammation. Treated with hydrocortisone enema. Narrowing in sigmoid colon treated with sigmoid resection with colostomy. Since then patient has been dealing with diarrhea and constipation. However lately in the past few weeks she has been able to move her bowels. Patient however feels like whenever she eats she feels full very quickly does not feel like the food gets through until 24 hours later. Patient reports that she only eats about 1 meal a day. Patient denies any weight loss. Denies any melena, hematochezia. Stool is dark yellow to brown. Patient repo rts that her stoma healed well. Mild complication post surgery with wound adhesions in her lower abdomen which healed since. Patient reports occasional nausea without vomiting. Patient reports fogginess after eating certain food PFSH Medical History Postprocedural seroma of skin and subcutaneous tissue following other procedure Colostomy in place Hx of flexible sigmoidoscopy Proctosigmoiditis Stricture of sigmoid colon Colon wall thickening Obesity, Class II, BMI 35-39.9 IBS (irritable bowel syndrome) History of colitis Gastric ulcer Interstitial cystitis Occipital neuralgia of right side History of suicidal ideation Anxiety Agoraphobia MDD (major depressive disorder) PTSD (post-traumatic stress disorder) Surgical History Hx of colonoscopy Hx of section H/O: hysterectomy Hx of cholecystectomy (~12/2022) Family History Father Prostate cancer Maternal Uncle Colon cancer Maternal Grandmother Breast cancer Social History Household Members: Spouse and Children Housing: House Do you presently have visiting nurse or other home services: Yes ([employer] to help with ADLs) Alcohol intake: never 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 Patient Tobacco Use Status: Never used Tobacco Substance Use Type: Marijuana service: No Review of Systems Const Denies weight gain and Denies weight loss ENT Reports no additional complaints, Denies dysphagia and Denies odynophagia Card Reports no additional complaints Resp Reports no additional complaints GI Reports abdominal pain, Denies belching, Denies melena, Reports bloating, Denies change in bowel habits, Denies dysphagia, Denies excessive flatus, Denies dyspepsia, Denies heartburn, Denies diarrhea, Denies loose stools, Denies nausea, Denies odynophagia and Denies vomiting Reports no additional complaints Musc Reports no additional complaints Neuro Reports no additional complaints Psych Reports no additional complaints Endo Reports no additional complaints Physical Exam Vital Signs: Last Vital Signs Pulse 86 10/31/24 10:31 BP 130/60 10/31/24 10:31 Pulse Ox 97 10/31/24 10:31 Oxygen Delivery Method Room Air 10/31/24 10:31 BMI result Body Mass Index 41.6 Const General: comfortable and no acute distress Orientation/consciousness: patient oriented x3 Resp Effort & Inspection: normal respiratory effort Cardio Rate: regular rate GI Other: Midline incision well healed, colostomy with leg good output Palpation (GI): Soft to palpation, not firm, nontender and no guarding Neuro General: patient oriented x3 Psych Appearance: grossly normal Mental Status: mental status grossly normal Assessment & Plan Assessment & Plan (1) Nausea: Code(s): R11.0 - Nausea Category: Medical (2) S/P colostomy: Code(s): Z93.3 - Colostomy status Category: Surgical (3) Colostomy in place: Code(s): Z93.3 - Colostomy status Category: Medical (4) History of colitis: Code(s): Z87.19 - Personal history of other diseases of the digestive system Category: Medical (5) Abdominal pain: Code(s): R10.9 - Unspecified abdominal pain Category: Medical Qualifiers: Abdominal location: generalized Qualified Code(s): R10.84 - Generalized abdominal pain (6) Gastroesophageal reflux disease: Code(s): K21.9 - Gastro-esophageal reflux disease without esophagitis Qualifiers: Esophagitis presence: esophagitis presence not specified Qualified Code(s): K21.9 - Gastro-esophageal reflux disease without esophagitis (7) Postprandial diarrhea: Code(s): K52.9 - Noninfective gastroenteritis and colitis, unspecified (8) Postprandial abdominal bloating: Code(s): R14.0 - Abdominal distension (gaseous) Plan Patient reports feeling full after eating only small amounts. Will try Motegrity and see if that will help. Will to gastric emptying study to check if patient has gastroparesis. Please try to schedule within the next couple weeks. I will see patient in 3 weeks to re-evaluate her. Her feeling tired could be related to taking hyoscyamine before eating. While waiting for Motegrity to get approved she can take Reglan given to her in the ER. Avoid dietary triggers in late night snacking. Staying upright for minimum 3 hours after meals discussed with patient. Patient is to call our office if she will have worsening symptoms. Patient is aware of symptoms she should be seeking ED visit. Patient had CT scan done last night did not show any acute processes. No leukocytosis. Patient will be seen in 3 weeks, sooner on as needed basis. Patient is agreeable to this plan and verbalizes understanding of instructions. She was given the opportunity to ask questions and all questions answered. Thank you for allowing me to participate in her care Orders: Orders NM gastric emptying study Today R68.81 - Early satiety Medications: New prucalopride (Motegrity) 2 mg PO DAILY 30 tabs 2RF K59.04 - Chronic idiopathic constipation Coding Level of Care Code Est Pt Level 5 (41899) Complex EM visit Add On G2211 Diagnoses Nausea R11.0 S/P colostomy Z93.[address] Z93.3 History of colitis Z87.19 Generalized abdominal pain R10.84 Abdominal location: generalized Gastroesophageal reflux disease, unspecified whether esophagitis present K21.9 Esophagitis presence: esophagitis presence not specified Postprandial diarrhea K52.9 Postprandial abdominal bloating R14.0 Time Spent (min) 55 Comment 30 minutes spent with patient and additional 25 minutes spent reviewing her records
[2024-10-31 10:31] VITALS: BP 130/60; PULSE 86; O2SAT 97; BMI 41.6
== END 2024-10-31 11:09 | disposition home or self-care (01) ==
PROVIDERS: PCP Internal Medicine; Visit Provider Nurse Practitioner Family
DX: R11.0 Nausea (principal); Z93.3 Colostomy status; Z87.19 Personal history of other diseases of the digestive system; R10.84 Generalized abdominal pain; K21.9 Gastro-esophageal reflux disease without esophagitis; K52.9 Noninfective gastroenteritis and colitis, unspecified; R14.0 Abdominal distension (gaseous)
CPT/HCPCS: 99215

== ENCOUNTER → 2024-10-31 10:11 | Outpatient (BNVA) | payer OTHER, SELFPAY | PROVIDERS: PCP Internal Medicine; Visit Provider Nurse Practitioner Family | DX: K21.9 Gastro-esophageal reflux disease without esophagitis (principal); R11.0 Nausea; Z93.3 Colostomy status; R10.84 Generalized abdominal pain; R14.0 Abdominal distension (gaseous); K52.9 Noninfective gastroenteritis and colitis, unspecified | CPT/HCPCS: 99212 ==

== ENCOUNTER → 2024-11-12 07:45 | Outpatient (REF) | payer OTHER, SELFPAY ==
--- OUTSIDE RECORDS SUMMARY | 2024-01-02 10:45 | XMS_ITS | Encounter Summary ---
Author Organization [facility] Address [address] [place] [address] Care Team Providers Care Fish Frog Or Oyster Farmer Name Role Phone Nori Posey MD Primary Care Provider [phone] [phone] Encounter Details Date Type Department Care Team (Late st Contact Info) Description 01/02/2024 10:45 AM EDT Hospital Encounter TH HISTORIC ENCOUNTERS EASTERN CONVERSION ONLY Yossi Marina MD [address] [place] [phone] Social History Tobacco Use Types Packs/Day Years [...] home since Sunday. Still has a black [place] in visual field of L eye. Still [...] ambulation ?? 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 The majority of the actual btqz-rk-kcdo visit was spent counseling the patient with respect to the current neurological picture. Yossi Marina MD documented in this encounter Plan of Treatment Upcoming Encounters Date Type Department Care Team (Late st Contact Info) Description 11/25/2024 2:40 PM EDT Consult Gastroenterology - 299 [facility] 299 [facility] 419 [place] [address] Julian Sanchez MD 299 [facility] 419 [place] [address] 03/24/2025 11:30 AM EST Office Visit Internal Medicine - [address] [place], [place] [phone] Janet Harding MD [address] [place] 03/31/2025 11:00 AM EST Office Visit [facility] [place] [facility] [place] [address] [facility] 150 [place] [phone] Rocío Watkins PA 175 [facility] 150 [place] [address] documented as of this encounter Visit Diagnoses Not on filedocumented in this encounter Care Teams Fish Frog Or Oyster Farmer Relationship Specialty Start Date End Date Nori Posey MD PCP - General 01/30/23 04/22/24 documented as of this encounter
--- NOTE | ~2024-11-12 | NM_ITS ---
EXAMINATION: AK RADIONUCLIDE SOLID FOOD GASTRIC EMPTYING 4-HOUR STUDY CLINICAL INFORMATION: Early satiety COMPARISON: CT abdomen and pelvis without IV contrast 10/30/2024 TECHNIQUE: A standard meal consisting of 4 oz of Egg Beaters brand tagged with 0.85 microcuries Tc-99m Sulfur Colloid, 8 oz water and 2 slices of toast with jelly was administered orally to the patient. Images were obtained using a dual head gamma camera in the anterior and posterior projections over of the stomach immediately post ingestion and at hourly intervals up to 4 hours post ingestion. The anterior and posterior counts at each time interval were averaged using the geometric mean and expressed as percentage of the immediate post ingestion counts. FINDINGS: There is good visualization of activity in the stomach immediately post ingestion. As the study progresses, there is good clearance of activity from the stomach and visualization of progressively increasing small bowel activity. By the end of the study, there is almost no retention noted in the stomach. Retention in the stomach at each time interval was: 1 hour 90% (normal 37%-90%) 2 hours 70% (normal 30%-60%) 3 hours 55% 4 hours 33% (normal 0%-10%) AK/AK gastric emptying study IMPRESSION: Abnormal 4-hour solid food gastric emptying study. For solid meal, rapid gastric emptying is less than 30% at 60 minutes. Delayed gastric emptying criteria is more than 60% remaining at 120 minutes or more than 10% at 240 minutes. The 4-hour value is the best discriminator of a normal or abnormal result). Gastric emptying study grading per JNMT Consensus Recommendations in 2008 (https://tech.snmjournals.org/content/36/1/44) Grade 1 (mild retention): 11-20% at 4h Grade 2 (moderate retention): 21-35% at 4h Grade 3 (severe retention): 36-50% at 4h Grade 4 (very severe retention): >50% retention at 4h Electronically signed by: Vladimir Riley MD 11/12/2024 12:33 PM EDT
--- OUTSIDE RECORDS SUMMARY | 2024-11-12 07:48 | XMS_ITS | Clinical Summary ---
Author Organization [employer] [facility] Address [address] [place] [address] Care Team Providers Care Finger Grip Machine Operator Name Role Phone Nori Posey MD Primary Care Provider [phone] Allergies Active Allergy Reactions Criticality Noted Date Comments [place] 08/30/2023 Medications Medication Sig Dispensed Refills Start [...] age to complete this topic Care Teams Finger Grip Machine Operator Relationship Specialty Start Date End Date Nori Posey MD [address] [place] [id number] PCP - General Internal Medicine 08/01/23
== END ==
LOC: HO.NUCMED 07:45
PROVIDERS: PCP Internal Medicine; Visit Provider Nurse Practitioner Family
DX: R68.81 Early satiety (principal)
CPT/HCPCS: 78264; A9541

== ENCOUNTER → 2024-11-12 07:47 | Outpatient (BNV) | payer OTHER, SELFPAY | PROVIDERS: PCP Internal Medicine; Visit Provider Radiology Diagnostic Radiology | DX: R68.81 Early satiety (principal) | CPT/HCPCS: 78264 ==

== ENCOUNTER 2024-11-24 13:10 | Outpatient (AMB) | payer OTHER, SELFPAY ==
--- OUTSIDE RECORDS SUMMARY | 2024-01-02 10:45 | XMS_ITS | Encounter Summary ---
Author Organization [facility] Address [address] [place] [address] Care Team Providers Care Tool And Die Maker Level Five Name Role Phone Nori Posey MD Primary Care Provider [phone] Encounter Details Date Type Department Care Team (Late st Contact Info) Description 01/02/2024 10:45 AM EDT Hospital Encounter TH HISTORIC ENCOUNTERS EASTERN CONVERSION ONLY Yossi Marina MD [address] [place] [address] [phone] Social History Tobacco Use Types Packs/Day Years [...] home since Sunday. Still has a black [place] in visual field of L eye. Still [...] ambulation ?? 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 The majority of the actual mmle-gx-wtii visit was spent counseling the patient with respect to the current neurological picture. Yossi Marina MD documented in this encounter Plan of Treatment Upcoming Encounters Date Type Department Care Team (Late st Contact Info) Description 11/25/2024 2:40 PM EDT Consult Gastroenterology - [address] [facility] [address] [facility] [address] [place] [phone] Julian Sanchez MD [address] [facility] [address] [place] [address] 03/24/2025 11:30 AM EST Office Visit Internal Medicine - [facility] [address] [place], [place] [phone] Janet Harding MD [address] [place], [place] 03/31/2025 11:00 AM EST Office Visit [facility] [place] [address] [facility] [address] [place] [phone] Rocío Watkins PA [address] [facility] [address] [place] [address] documented as of this encounter Visit Diagnoses Not on filedocumented in this encounter Care Teams Tool And Die Maker Level Five Relationship Specialty Start Date End Date Nori Posey MD PCP - General 01/30/23 04/22/24 documented as of this encounter
[2024-11-24 13:11] VITALS: BP 146/76; PULSE 90; O2SAT 97; BMI 40.7
--- NOTE | 2024-11-24 13:11 | A.OFFVIS_ITS ---
Vital Signs 11/24/24 13:11 Height 5 ft 3 in Weight 230 lb BMI 40.7 BP 146/76 H Blood Pressure Location Rt brachial Position Sitting Pulse 90 Pulse Source Pulse Oximeter Pulse Oximetry (%) 97 Oxygen Delivery Method Room Air Intake Visit Reasons: 3wks Intake Note: ESTABLISHED PATIENT for mgmt of GERD, constipation w/ associated abd pain. Chief Complaint; Pt reports persistence of chronic sx. No changes since last visit. Pt states that she has not been able to get her motegrity despite the PA being approved x2 weeks ago. Motion Picture Photographer Required: No Accompanied by: Significant Other Allergies propofol Allergy (Intermediate, Verified 10/31/24 10:22) Itching morphine Allergy (Mild, Verified 10/31/24 10:22) Itching HPI HPI 3wks: Details: LAST VISIT Nausea S/P colostomy Colostomy in place History of colitis Abdominal pain Gastroesophageal reflux disease Postprandial diarrhea Postprandial abdominal bloating Plan Patient reports feeling full after eating only small amounts. Will try Motegrity and see if that will help. Will to gastric emptying study to check if patient has gastroparesis. Please try to schedule within the next couple weeks. I will see patient in 3 weeks to re-evaluate her. Her feeling tired could be related to taking hyoscyamine before eating. While waiting for Motegrity to get approved she can take Reglan given to her in the ER. Avoid dietary triggers in late night snacking. Staying upright for minimum 3 hours after meals discussed with patient. Patient is to call our office if she will have worsening symptoms. Patient is aware of symptoms she should be seeking ED visit. Patient had CT scan done last night did not show any acute processes. No leukocytosis. Patient will be seen in 3 weeks, sooner on as needed basis. Patient is agreeable to this plan and verbalizes understanding of instructions. She was given the opportunity to ask questions and all questions answered. ? Thank you for allowing me to participate in her care Orders NM gastric emptying study Today R68.81 New prucalopride (Motegrity) 2 mg PO DAILY 30 tabs 2RF K59.04 TODAY'S VISIT Patient is here today for follow-up and to discuss gastric emptying study results. Patient was called with the results, however we have discussed the results again today. Patient has confirm gastroparesis. Unable to get Motegrity from pharmacy despite PA have been approved. Patient reports feeling like the food stays in her stomach for hours unless she drinks shakes or other liquids. Most of the solid food stays in her stomach for a long time. The only meat or solid food is chicken. Patient states that she is able to eat chicken and feels like it gets digested quick. Patient feels like most of her food is on digested and she can see when she empties her colostomy bag. Patient denies any pain around the stoma. Feels like she might be getting a hernia. Fat containing umbilical hernia was found on CT scan in the past. Patient denies melena, hematochezia. Patient reports that Nexium is working for her. Patient denies having acid reflux. Occasional dyspepsia without dysphagia or odynophagia. Patient has follow-up with Dr. Allen in 2-3 months to discuss possible reversal. Patient reports occasional nausea. [facility] Medical History Postprocedural seroma of skin and subcutaneous tissue following other procedure Colostomy in place Hx of flexible sigmoidoscopy Proctosigmoiditis Stricture of sigmoid colon Colon wall thickening Obesity, Class II, BMI 35-39.9 IBS (irritable bowel syndrome) History of colitis Gastric ulcer Interstitial cystitis Occipital neuralgia of right side History of suicidal ideation Anxiety Agoraphobia MDD (major depressive disorder) PTSD (post-traumatic stress disorder) Surgical History Hx of colonoscopy Hx of section H/O: hysterectomy Hx of cholecystectomy (~12/2022) Family History Father Prostate cancer Maternal Uncle Colon cancer Maternal Grandmother Breast cancer Social History Household Members: Spouse and Children Housing: House Do you presently have visiting nurse or other home services: Yes (INTERNATIONAL TRADE ANALYST to help with ADLs) Alcohol intake: never 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 Patient Tobacco Use Status: Never used Tobacco Substance Use Type: Marijuana service: No Review of Systems Const Denies weight gain and Denies weight loss ENT Reports no additional complaints, Denies dysphagia and Denies odynophagia Card Reports no additional complaints Resp Reports no additional complaints GI Reports abdominal pain, Denies belching, Denies melena, Reports bloating, Denies change in bowel habits, Denies dysphagia, Denies excessive flatus, Denies dyspepsia, Denies heartburn, Denies diarrhea, Denies loose stools, Denies nausea, Denies odynophagia and Denies vomiting Reports no additional complaints Musc Reports no additional complaints Neuro Reports no additional complaints Psych Reports no additional complaints Endo Reports no additional complaints Physical Exam Vital Signs: Last Vital Signs Pulse 90 11/24/24 13:11 BP 146/76 H 11/24/24 13:11 Pulse Ox 97 11/24/24 13:11 Oxygen Delivery Method Room Air 11/24/24 13:11 BMI result Body Mass Index 40.7 Const General: comfortable and no acute distress Orientation/consciousness: patient oriented x3 Resp Effort & Inspection: normal respiratory effort Cardio Rate: regular rate GI Other: Midline incision well healed, colostomy with leg good output Palpation (GI): Soft to palpation, not firm, nontender and no guarding Neuro General: patient oriented x3 Psych Appearance: grossly normal Mental Status: mental status grossly normal Results Reviewed Results Reviewed: GASTRIC EMPTYING STUDY FINDINGS: There is good visualization of activity in the stomach immediately post ingestion. As the study progresses, there is good clearance of activity from the stomach and visualization of progressively increasing small bowel activity. By the end of the study, there is almost no retention noted in the stomach. Retention in the stomach at each time interval was: 1 hour 90% (normal 37%-90%) 2 hours 70% (normal 30%-60%) 3 hours 55% 4 hours 33% (normal 0%-10%) NV/NV gastric emptying study IMPRESSION: Abnormal 4-hour solid food gastric emptying study. For solid meal, rapid gastric emptying is less than 30% at 60 minutes. Delayed gastric emptying criteria is more than 60% remaining at 120 minutes or more than 10% at 240 minutes. The 4-hour value is the best discriminator of a normal or abnormal result). Assessment & Plan Assessment & Plan (1) Inflammatory bowel disease: Code(s): K52.9 - Noninfective gastroenteritis and colitis, unspecified Category: Medical (2) S/P colostomy: Code(s): Z93.3 - Colostomy status Category: Medical (3) Colostomy in place: Code(s): Z93.3 - Colostomy status Category: Medical (4) History of colitis: Code(s): Z87.19 - Personal history of other diseases of the digestive system Category: Medical (5) Nausea: Code(s): R11.0 - Nausea Category: Medical (6) Abdominal pain: Code(s): R10.9 - Unspecified abdominal pain Category: Medical Qualifiers: Abdominal location: generalized Qualified Code(s): R10.84 - Generalized abdominal pain (7) Gastroesophageal reflux disease: Code(s): K21.9 - Gastro-esophageal reflux disease without esophagitis Qualifiers: Esophagitis presence: esophagitis presence not specified Qualified Code(s): K21.9 - Gastro-esophageal reflux disease without esophagitis (8) Postprandial diarrhea: Code(s): K52.9 - Noninfective gastroenteritis and colitis, unspecified (9) Postprandial abdominal bloating: Code(s): R14.0 - Abdominal distension (gaseous) Plan Will check for malabsorption issues. Patient will take sucralfate at bedtime instead of famotidine. We will try to send script for Creon and she can take low-dose with meals to help 8 digestion. May use Zofran as needed. Patient reports that it is very helpful. Continue taking Nexium daily. Continue avoiding dietary triggers. Patient can continue current bowel regimen. special education teaching assistant [facility] I will send patient for upper endoscopy. Significant gastroparesis seen. Patient reports early satiety with solids except for shakes and liquids. Upper endoscopy, patient might need a pyloric dilation, evaluate for gastritis, duodenitis, esophagitis, Barretts. I will see patient after the procedure, sooner on as needed basis. She is agreeable to this plan and verbalizes understanding of instructions. She was given the opportunity to ask questions and all questions answered. Thank you for allowing me to participate in her care Orders: Orders 2 Vitamin A 11/24/24 K86.89 - Other specified diseases of pancreas Zinc 11/24/24 K52.9 - Noninfective gastroenteritis and colitis, unspecified Vitamin B2 (Riboflavin) 11/24/24 K74.60 - Unspecified cirrhosis of liver Vitamin B3 (Niacin) 11/24/24 K86.89 - Other specified diseases of pancreas Vitamin E 11/24/24 K52.9 - Noninfective gastroenteritis and colitis, unspecified Vitamin B6 11/24/24 K52.9 - Noninfective gastroenteritis and colitis, unspecified Vitamin B5 (Pantothenic Acid) 11/24/24 K52.9 - Noninfective gastroenteritis and colitis, unspecified Magnesium 11/24/24 N18.9 - Chronic kidney disease, unspecified Medications: New sucralfate 1 g PO BID 60 tabs 3RF K52.9 - Noninfective gastroenteritis and colitis, unspecified [id number] 12,000-38,000 -60,000 unit (Creon) administer with meals and/or snacks 1 cap PO QID 120 caps 0RF R10.9 - Unspecified abdominal pain Refilled ondansetron 4 mg PO Q8H PRN 30 tabs 1RF nausea and vomiting esomeprazole magnesium 40 mg PO DAILY 90 caps 5RF Discontinued hyoscyamine sulfate Discontinued Reason: Doctor's Order 0.125 mg PO QID PRN 14 tabs 0RF dyspe psia Coding Level of Care Code Est Pt Level 4 (99283) Complex EM visit Add On G2211 Diagnoses Inflammatory bowel disease K52.9 S/P colostomy Z93.[address] Z93.3 History of colitis Z87.19 Nausea R11.0 Generalized abdominal pain R10.84 Abdominal location: generalized Gastroesophageal reflux disease, unspecified whether esophagitis present K21.9 Esophagitis presence: esophagitis presence not specified Postprandial diarrhea K52.9 Postprandial abdominal bloating R14.0 Time Spent (min) 40 Comment 25 minutes spent with patient and additional 15 minutes spent reviewing her records
--- OUTSIDE RECORDS SUMMARY | 2024-11-24 14:30 | XMS_ITS | Clinical Summary ---
Author Organization [employer] [facility] Address [address] [place] [address] Care Team Providers Care Brake Specialist Name Role Phone Nori Posey MD Primary Care Provider [phone] Allergies Active Allergy Reactions Criticality Noted Date Comments [place] 08/30/2023 Medications Medication Sig Dispensed Refills Start [...] age to complete this topic Care Teams Brake Specialist Relationship Specialty Start Date End Date Nori Posey MD [address] [place] [id number] PCP - General Internal Medicine 08/01/23
--- OUTSIDE RECORDS SUMMARY | 2024-11-24 14:30 | XMS_ITS | Clinical Summary ---
Author Organization [facility] Address [address] [place] [address] Phone Care Team Providers Care Wire Mesh Gate Assembler Name Role Phone Janet Harding MD Primary Care Provider [phone] Allergies Active Allergy Reactions Criticality Noted Date [...] 24 Active vortioxetine (TRINTELLIX) 20 mg tablet Take by mouth daily. Active traMADoL (Ultram) 50 mg [...] A DAY 180 tablet 07/11/19 25 Active tamsulosin (FLOMAX) 0.4 mg 24 hr capsule Take 1 capsule (0.4 mg total) by mouth. at bedtime 05/23/19 25 Active polyethylene glycol (PEG) 17 gram/dose oral powder 08/21/19 25 Active Vitamin D3 50 mcg (2,000 unit) capsule Take 1 capsule (2,000 Units total) by mouth 1 (one) time each day. 05/26/19 25 Active Cholestyramine Light 4 gram powder MIX 4 GRAMS WITH LIQUID AND DRINK FOUR TIMES A DAY BEFORE MEALS AND BEFORE BEDTIME. DO NOT TAKE ANY MEDS LESS THAN 1 HOUR BEFORE AND 4-6 H 06/03/19 25 Active docusate sodium (COLACE) 100 mg capsule 08/21/19 25 Active eszopiclone (LUNESTA) 3 mg tablet Take 1 tablet (3 mg total) by mouth at bedtime. Max Daily Amount: 3 mg 10/15/19 25 Active HYDROmorphone (DILAUDID) 2 mg tablet 08/02/19 25 Active lactulose (CHRONULAC) solution 08/02/19 25 Active magnesium oxide 400 mg magnesium capsule Take 1 capsule by mouth 1 (one) time each day. 09/13/19 25 Active Apriso 0.375 gram 24 hr capsule 08/02/19 25 Active mirabegron (MYRBETRIQ) 50 mg 24 hr tablet Take 1 tablet (50 mg total) by mouth 1 (one) time each day. 06/10/20 25 Active senna 8.6 mg tablet TAKE TWO TABLETS BY MOUTH EVERY DAY AT BEDTIME NEEDED FOR CONSTIPATION 07/26/19 Active Active Problems Problem Noted Date Diagnosed Date Class 1 obesity 11/24/2024 Internal hemorrhoid 11/24/2024 Irritable bowel syndrome 11/24/2024 Obstructive sleep apnea syndrome 11/24/2024 Agoraphobia with panic disorder 03/06/2022 Alopecia (capitis) totalis 03/06/2022 Body dysmorphic disorder 03/06/2022 History of suicidal behavior 03/06/2022 HSV-2 (herpes simplex virus 2) infection 022 Major depressive disorder 03/06/2022 Migraine 03/06/2022 Overview (03/03/2024): Amitryptilline daily PTSD (post-traumatic stress disorder) 03/06/2022 Encounters Date Type Department Care Team Description 2024 Telephone Internal Medicine - [facility] [address] [facility] [place] [phone] Janet Harding MD 10/29/2024 8:36 AM EDT - 10/29/2024 11:59 PM EDT Hospital Encounter [address] [phone] Gait abnormality; Migraine without status migrainosus, not intractable, unspecified migraine type Discharge Disposition: Home or Self Care 10/29/2024 8:29 AM EDT - 10/29/2024 11:59 PM EDT Hospital Encounter [facility] [address] [place] [phone] Gait abnormality; Migraine without status migrainosus, not intractable, unspecified migraine type Discharge Disposition: Home or Self Care 09/26/2024 12:30 PM EDT Office Visit [facility] [address] [facility] [address] [place] [phone] Yossi Marina MD Gait abnormality (Primary Dx); Migraine without status migrainosus, not intractable, unspecified migraine type; Seizure (CMS/HCC V24, CMS/HCC V28); Seizure-like activity (CMS/HCC V24, CMS/[facility] V28) 09/19/2024 2:55 PM EDT - 09/19/2024 7:09 PM EDT Emergency [facility] Emergency [address] [place] [address] Discharge Disposition: Home or Self Care 09/19/2024 Telephone [facility] [address] [facility] [address] [place] [address] Roxanne Gomez MA 09/04/2024 10:30 AM EDT Office Visit Internal Medicine - [address] [phone] Janet Harding MD Hospital discharge follow-up (Primary Dx); Major depressive disorder, remission status unspecified, unspecified whether recurrent; PTSD (post-traumatic stress disorder); Interstitial cystitis; Presence of sigmoid colostomy ([facility] V24, [facility] V28); Neuropathy; Weakness of both lower extremities 09/01/2024 Telephone Internal Medicine - [address] [phone] Janet Harding MD 08/28/[address] [phone] Jany Rodriguez MA from Last 3 Months Immunizations Name Administration Dates Next Due Tdap Tetanus diptheria acell ular pertussis (Boostrix; Adacel) 7yo and older 05/04/2023 Surgical History Surgery Date Site/Laterality Comments CHOLECYSTECTOMY PROCEDURE: [place] LAPAROSCOPY SURG CHOLECYSTECTOMY HYSTERECTOMY 2015 PROCEDURE: HISTORICAL HYSTERECTOMY THERAPEUTIC PROCEDURE:THERAPEUTIC APPENDECTOMY PROCEDURE:APPENDECTOMY TONSILLECTOMY PROCEDURE:TONSILLECTOMY HYSTERECTOMY PROCEDURE:HYSTERECTOMY CHOLECYSTECTOMY PROCEDURE:CHOLECYSTECTOMY LUMBAR PUNCTURE PROCEDURE:LUMBAR PUNCTURE BLADDER SURGERY PROCEDURE:BLADDER SURGERY COLONOSCOPY 07/26/2024 Medical History Medical History Date Comments Migraine headache DX:Migraine he adache HSV-2 (herpes simplex virus 2) infection DX:HSV-2 (herpes simplex virus 2) infection PTSD (post-traumatic stress disorder) DX:PTSD (post-traumatic stress disorder) Suicide and self-inflicted i njury ([facility] V24, [facility] V28) DX:Suicide and self-inflict ed injury ([facility]) Major depression, chronic DX:Percy or [...] DX:Guaiac positive stools Hematuria DX:Hematuria Uterine cancer ([facility] V24, [facility] V28) 2014 DX:Uterine cancer ([facility]) Interstitial cystitis DX:Interst itial cystitis [...] Sign Reading Time Taken Comments Blood Pressure 120/90 09/26/2024 12:29 PM EDT Pulse 102 09/26/2024 12:29 PM EDT Temperature 36 C (96.8 F) 09/26/2024 12:29 PM EDT Respiratory Rate 18 09/19/2024 3:10 PM EDT Oxygen Saturation 97% 09/26/2024 12:29 PM EDT Inhaled Oxygen Concentration - - Weight 103 kg (227 lb) 09/19/2024 3:10 PM EDT Height 160 cm (5' 3 ) 09/19/2024 3:10 PM EDT Body Mass Index 40.21 09/19/2024 3:10 PM EDT Plan of Treatment Upcoming Encounters Date Type Department Care Team (Late st Contact Info) Description 11/25/2024 2:40 PM EDT Consult Gastroenterology - [address] [facility] [address] [place] [phone] Julian Sanchez MD [address] [facility] [address] [place] [address] 03/24/2025 11:30 AM EST Office Visit Internal Medicine - [facility] [address] [place] [address] Janet Harding MD [address] [place], [place] 03/31/2025 11:00 AM EST Office Visit [facility] [address] [place] [phone] Rocío Watkins PA [address] [facility] [address] [place] [address] Health Maintenance Due Date Last Done Comments Hepatitis B Vaccines (1 of 3 - 19+ 3-dose series) 2000 Cervical Cancer Screening: P ap Smear 2002 COVID-19 Vaccine (3 - Modern a risk series) 01/03/2021 12/06/2020, 10/19/2020 HIV Screening 03/05/2022 Social Influencers of Health Screening 03/05/2022 Depression Screening 04/02/2024 05/04/2023 Breast Cancer Screening 06/05/2024 06/05/2022 Influenza Vaccine (#1) 2024 9, 06/13/2007 Cholesterol Screening (Lipid Panel) 03/06/2027 03/06/2022 [...] 5 Years) and At-Risk Patients (6 to 49 Years) Aged Out No longer eligible b ased on patient's age to complete this topic RSV Immunization Patients Under 20 months Aged Out No longer eligible b ased on patient's age to complete this topic Varicella Vaccines Aged Out No longer eligible based on patient's age to complete this topic Procedures Procedure Name Priority Date/Time Associated Diagnosis Comments EXTERNAL NUC MED REPORT 11/12/2024 MR BRAIN WO AND W CONTRAST Routine 10/29/2024 10:31 AM EDT Gait abnormality Migraine without status migrainosus, not intractable, unspecified migraine type MR CERVICAL SPINE WO AND W CONTRAST Routine 10/29/2024 10:30 AM EDT Gait abnormality Migraine without status migrainosus, not intractable, unspecified migraine type EXTERNAL CT REPORT 10/07/[address] REPORT 10/07/2024 DEPRESSION SCREENING Routine 05/04/2023 JOE SCREENING DIGITAL Routine 06/05/2022 11:27 AM EST Encounter for screening mammogram for malignant neoplasm of breast HEPATITIS C SCREENING Routine 03/06/2022 LIPID PANEL Routine 03/06/2022 from Last 3 Months or Most Recently Relevant to Health Maintenance Results * External Nuc Med Report (11/12/2024) Anatomical Region Laterality Modality Nuclear Medicine us Provider [facility] IMG NM PROCEDURES Final Result * MR Brain wo and w Contrast (10/29/2024 10:31 AM EDT) Anatomical Region Laterality Modality Head and Neck Magnetic Resonan ce 10/29/2024 3:48 PM EDT Impressions 10/29/2024 3:57 PM EDT No acute findings or abnormal intracranial enhancement. Stable exam compared to 11/22/2023. Unchanged nonspecific T2 hyperintense foci throughout the supratentorial white matter, predominantly frontal and subcortical in distribution. Pattern can be seen in the setting of chronic migraine or early chronic small vessel ischemic change. Demyelination is considered less likely. -------- FINAL REPORT -------- Dictated By: TURNER STARKS Dictated Date: 10/29/2024 15:48 ET Assigned Physician: TURNER STARKS Reviewed and Electronically Signed By: TURNER STARKS Signed Date: 10/29/2024 15:57 ET Workstation ID: [id number] Transcribed By: Self Edit Transcribed Date: 10/29/2024 15:48 ET Narrative 10/29/2024 3:57 PM EDT PROCEDURE: Brain MRI INDICATION: White matter lesion TECHNIQUE: Multiplanar, multisequence MRI of the brain without and with contrast. 20 mL Dotarem injected intravenously without complication from a 20 mL vial. COMPARISON: 11/22/2023 FINDINGS: No acute infarct, mass effect, or intracranial hemorrhage. Mild nonspecific T2 hyperintense foci are seen throughout the supratentorial white matter, predominantly frontal and subcortical in distribution, similar compared to the 2023 exam. There is unchanged involvement of the right anterior temporal subcortical white matter. No new lesions are detected. No abnormal intracranial enhancement. No abnormal intracranial susceptibility artifact. Sella and foramen magnum are within normal limits. Major intracranial arterial flow voids are normal. Major dural venous sinuses enhance normally with contrast. Ventricles, sulci, and cisterns are normal in size and configuration. No hydrocephalus. Sinuses and mastoid air cells are clear. Orbits and extra cranial soft tissues are normal. Calvarium is normal. Procedure Note Turner Starks MD - 10/29/2024 PROCEDURE: Brain MRI INDICATION: White matter lesion TECHNIQUE: Multiplanar, multisequence MRI of the brain without and withcontrast. 20 mL Dotarem injected intravenously without complication froma 20 mL vial. COMPARISON: 11/22/2023 FINDINGS: No acute infarct, mass effect, or intracranial hemorrhage. Mild nonspecific T2 hyperintense foci are seen throughout thesupratentorial white matter, predominantly frontal and subcortical indistribution, similar compared to the 2023 exam. There is unchangedinvolvement of the right anterior temporal subcortical white matter. Nonew lesions are detected. No abnormal intracranial enhancement. No abnormal intracranialsusceptibility artifact. Sella and foramen magnum are within normal limits. Major intracranial arterial flow voids are normal. Major dural venoussinuses enhance normally with contrast. Ventricles, sulci, and cisterns are normal in size and configuration. Nohydrocephalus. Sinuses and mastoid air cells are clear. Orbits and extra cranial soft tissues are normal. Calvarium is normal. IMPRESSION: No acute findings or abnormal intracranial enhancement. Stable examcompared to 11/22/2023. Unchanged nonspecific T2 hyperintense foci throughout the supratentorialwhite matter, predominantly frontal and subcortical in distribution.Pattern can be seen in the setting of chronic migraine or early chronicsmall vessel ischemic change. Demyelination is considered less likely. -------- FINAL REPORT -------- Dictated By: TURNER STARKS Dictated Date: 10/29/2024 15:48 ET Assigned Physician: TURNER STARKS Reviewed and Electronically Signed By: TURNER STARKS Signed Date: 10/29/2024 15:57 ET Workstation ID: [id number] Transcribed By: Self Edit Transcribed Date: 10/29/2024 15:48 ET Yossi Marina MD IMG MRI PROCEDURES Final Result * MR Cervical Spine wo and w Contrast (10/29/2024 10:30 AM EDT) Anatomical Region Laterality Modality C-spine, Spine Magnetic Resonan ce 10/29/2024 3:57 PM EDT Impressions 10/29/2024 4:00 PM EDT Stable exam. No evidence of demyelination in the cervical spine -------- FINAL REPORT -------- Dictated By: TURNER STARKS Dictated Date: 10/29/2024 15:57 ET Assigned Physician: TURNER STARKS Reviewed and Electronically Signed By: TURNER STARKS Signed Date: 10/29/2024 16:00 ET Workstation ID: [id number] Transcribed By: Self Edit Transcribed Date: 10/29/2024 [...] stenosis, or spinal canal stenosis. Procedure Note Turner Starks MD - 10/29/2024 PROCEDURE: Cervical spine [...] spine -------- FINAL REPORT -------- Dictated By: TURNER STARKS Dictated Date: 10/29/2024 15:57 ET Assigned Physician: TURNER STARKS Reviewed and Electronically Signed By: TURNER STARKS Signed Date: 10/29/2024 16:00 ET Workstation ID: [id number] Transcribed By: Self Edit Transcribed Date: 10/29/2024 15:57 ET Yossi Marina MD IMG MRI PROCEDURES Final Result * External CT Report (10/07/2024) Only the most recent of2 resultswithin the time period is included. Anatomical Region Laterality Modality Computed Tomogra phy us Provider [place] [facility] IMG CT PROCEDURES Final Result * Depression Screening (05/04/2023) Depression Screening Abstracted Historical Provider HEALTH MAINTENANCE Final Result * JOE SCREENING DIGITAL (06/05/2022 11:27 AM EST) Anatomical Region Laterality Modality Mammography 06/05/2022 8:32 AM EST Narrative 06/05/2022 11:27 AM EST [facility] Diagnostic Imaging Department [address] [place] [address] Patient: PAULA JULES /Age/Sex: 1980 - 41 - F Unit#: [id number] Location/Status: SPDIMAM/REG CLI Mnemonic/Ordering Site: [facility] Ordering Physician: VIDAL GARY DO [facility] Screening Digital - 06/05/22 - 854 EXAM: [facility] Screening Digital EXAM DATE AND TIME: 06/05/2022 8:56 AM HISTORY: Screening. Baseline exam. Maternal grandmother had breast carcinoma. COMPARISON: No comparison imaging. TECHNIQUE: CC and MLO views of both breasts were obtained using full field digital mammography. Bilateral digital breast tomosynthesis was performed in the MLO projection. Computer aided detection with Trovali 7.2-H and C4 Imaging 3D 3.1 was employed. TISSUE DENSITY: b. [...] Routine screening mammogram BILATERAL in 1 year. [id number], [id number] 3341F, 7025F Dictating Physician: KIYA MYLES MD Electronically Signed by: KIYA MYLES MD Dic Date/Time: 06/05/22 1126 Sign date/Time: 06/05/22 1127 Procedure Note Kiya Myles MD - 05/04/2023 [facility] Diagnostic Imaging Department [address] [place] [address] Patient: LUIS REDDPAULA /Age/Sex: 1980 - 41 - F Unit#: [id number] Location/Status: SPDIMAM/REG CLI Mnemonic/Ordering Site: [facility] Ordering Physician: VIDAL GARY DO [facility] Screening Digital - 06/05/22854 EXAM: [facility] Screening Digital EXAM DATE AND TIME: 06/05/2022 8:56 AM HISTORY: Screening. Baseline exam. Maternal grandmother had breastcarcinoma. COMPARISON: No comparison imaging. TECHNIQUE: CC and MLO views of both breasts were obtained using fullfield digital mammography. Bilateral digital breast tomosynthesis was performedin the MLO projection. Computer aided detection with Trovali 7.2-H andC4 Imaging 3D 3.1 was employed. TISSUE DENSITY: b. [...] Routine screening mammogram BILATERAL in 1 year. 16585, 04461 3341F, 7025F Dictating Physician: KIYA MYLES MD Electronically Signed by: KIYA MYLES MD Dic Date/Time: 06/05/22 1126 Sign date/Time: 06/05/22 1127 Vidal Gary IMG BI PROCEDURES Final Result * Hepatitis [...] Most Recently Relevant to Health Maintenance Insurance [facility] [employer] Care Teams Wire Mesh Gate Assembler Relationship Specialty Start Date End Date Janet Harding MD [address] [place], [place] PCP - General Internal Medicine 08/04/24
--- OUTSIDE RECORDS SUMMARY | 2024-11-24 14:30 | XMS_ITS | Encounter Summary ---
Author Organization [facility] Address [address] [place] [address] Care Team Providers Care Steamer Gum Candy Name Role Phone Janet Harding MD Primary Care Provider [phone] Reason for Visit * Reason Onset Date Comments FABRIC AND ACCESSORIES ESTIMATOR 2024 Encounter Details Date Type Department Care Team (Late st Contact Info) Description 2024 Telephone Internal Medicine - [facility] [address] [place] [phone] Janet Harding MD [address] [place], [place] Social History Tobacco Use Types Packs/Day Years [...] on file documented as of this encounter Progress Notes * Sirisha Carrasco [place] - 2024 10:32 AM EDT Spoke with pt, states at her appt with PCP she was told she needs more FABRIC AND ACCESSORIES ESTIMATOR hours. Pt states she doesn't know how to go about this. She states her FABRIC AND ACCESSORIES ESTIMATOR told her she needs something from the doctor. Informed her we cannot state how many hours she needs only can provide a letter stating PCP recommends she is reevluated for an increase in hours. Pt verbalizes understanding. Pt aware PCP is out of the office. Ok to wait for return. * Leeann River - 2024 9:53 AM EDT Caller requesting call back from provider: Is the caller the patient? yes If caller is not the patient, what is the callers name? Callers relationship to patient? Reason for call back: Patient is asking to speak to nurse in regard to FABRIC AND ACCESSORIES ESTIMATOR services. She states shewas advised to call back to speak with care team to give where hours should be sent, would like a call back Caller offered to speak with the nurse for assistance: YES Response: Patient offered to speak with nurse for assistance and patient agreed. Message forwarded to nurse. documented in this encounter Plan of Treatment Upcoming Encounters Date Type Department Care Team (Late st Contact Info) Description 11/25/2024 2:40 PM EDT Consult Gastroenterology - [address] [facility] [address] [place] [address] Julian Sanchez MD [address] [facility] [address] [place] [address] 03/24/2025 11:30 AM EST Office Visit Internal Medicine - [facility] [address] [place], [place] [phone] Janet Harding MD [address] [place], [place] 03/31/2025 11:00 AM EST Office Visit [facility] [address] [facility] [address] [place] [phone] Rocío Watkins PA [address] [place] [address] documented as of this encounter Visit Diagnoses Not on filedocumented in this encounter Care Teams Steamer Gum Candy Relationship Specialty Start Date End Date Janet Harding MD [address] [place] [address] PCP - General Internal Medicine 08/04/24 documented as of this encounter
== END 2024-11-24 14:17 | disposition home or self-care (01) ==
LOC: HO.HGI 13:10
PROVIDERS: PCP Internal Medicine; Visit Provider Nurse Practitioner Family
DX: K52.9 Noninfective gastroenteritis and colitis, unspecified (principal); Z93.3 Colostomy status; Z87.19 Personal history of other diseases of the digestive system; R11.0 Nausea; R10.84 Generalized abdominal pain; K21.9 Gastro-esophageal reflux disease without esophagitis; R14.0 Abdominal distension (gaseous)
CPT/HCPCS: 99214

== ENCOUNTER 2024-11-24 13:10 | Outpatient (REF) | payer OTHER, SELFPAY ==
[2024-11-24 15:37] LABS: Magnesium 2.2 mg/dL (1.6-2.6)
[2024-11-29 17:47] LABS: Vit B3 - Nicotinic Acid <20 ng/mL (see note); Vitamin B5 (Pantothenic Acid) <=40 ng/mL (<275)
== END 2024-11-24 13:11 | disposition home or self-care (01) ==
LOC: HO.LAB 13:10
PROVIDERS: PCP Internal Medicine; Visit Provider Nurse Practitioner Family
DX: K52.9 Noninfective gastroenteritis and colitis, unspecified (principal); R11.0 Nausea; R10.84 Generalized abdominal pain; K21.9 Gastro-esophageal reflux disease without esophagitis; R14.0 Abdominal distension (gaseous); K86.89 Other specified diseases of pancreas; K74.60 Unspecified cirrhosis of liver; N18.9 Chronic kidney disease, unspecified; Z93.3 Colostomy status; Z87.19 Personal history of other diseases of the digestive system
CPT/HCPCS: 36415; 83735; 84207; 84252; 84446; 84590; 84591; 84630; 99212

== ENCOUNTER 2024-12-05 13:08 | Emergency (ER) | payer OTHER, SELFPAY ==
--- OUTSIDE RECORDS SUMMARY | 2024-01-02 10:45 | XMS_ITS | Encounter Summary ---
Author Organization [facility] Address [address] [place] [address] Care Team Providers Care Bellstand Attendant Name Role Phone Nori Posey MD Primary Care Provider [phone] Encounter Details Date Type Department Care Team (Late st Contact Info) Description 01/02/2024 10:45 AM EDT Hospital Encounter TH HISTORIC ENCOUNTERS [facility] ONLY Yossi Marina MD [address] [place] [phone] Social History Tobacco Use Types Packs/Day Years [...] ambulation ?? 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 The majority of the actual cfxd-sx-ilug visit was spent counseling the patient with respect to the current neurological picture. Yossi Marina MD documented in this encounter Plan of Treatment Upcoming Encounters Date Type Department Care Team (Late st Contact Info) Description 03/24/2025 11:30 AM EST [facility] [address] [place], [place] [phone] Janet Harding MD [address] [place], [place] 03/31/2025 11:00 AM EST Office Visit [facility] [place] [address] [facility] [address] [facility] [address] [place] [phone] Rocío Watkins PA [address] [place] [phone] documented as of this encounter Visit Diagnoses Not on filedocumented in this encounter Care Teams Bellstand Attendant Relationship Specialty Start Date End Date Nori Posey MD PCP - General 01/30/23 04/22/24 documented as of this encounter
--- OUTSIDE RECORDS SUMMARY | 2024-12-02 08:29 | XMS_ITS | Continuity of Care Document ---
Author Organization [facility] ter Address [address] [place] [id number]- Care Team Providers Care Security Compliance Engineer Name Role Phone Janet Harding MD Primary Care Physician [phone] Encounter [facility] [place] Date(s): 12/02/24 - 12/02/[address] [address]- Encounter Diagnosis Gastroparesis(Final) - 12/02/24 Chronic abdominal pain(Final) - 12/02/24 Nausea and vomiting(Final) - 12/02/24 Discharge Disposition: A-D/C Home Attending Physician: Domenic Busch DO Admitting Physician: Domenic Busch DO Referring Physician: Not on Staff, Referring MD Encounter Type: Disch ES Allergies, Adverse Reactions, Alerts No Known Medication Allergies Immunizations Given and Recorded Vaccine Date Status Refusal Reason tetanus/diphtheria/pertussis, acel(Tdap) 1 12/16/12 Given Influenza Virus Vaccine (oldterm) 2 04/30/08 Given Influenza Virus Vaccine (oldterm) 3 06/13/07 Given Tet/Diphth/Acel, Pertussis (oldterm) 4 06/13/07 [facility] 1Admin Note: VIS 04/25/2011 2Admin Note: vis given 3Admin Note: vis given 4Admin Note: VIS GIVEN Medications Benadryl 25 mg oral capsule 2 capsule = 50 mg, By Mouth, Every 6 hours, PRN as needed for itching, # 24 capsule, 0 Refills, Maintenance, 10/09/23 10:38:00 AM EDT, Capsule, Partial fill upon patient request if the prescription is for a schedule II opioid drug. Start Date: 10/09/23 Status: Ordered Medication Dispense Status: Completed Quantity: 24.0 Unit: capsule Total Allowed Fills: 1 Fills Dispensed: 0 Diazepam = 10 mg, By Mouth, 3 times a day, 0 Refills, Maintenance, 11/02/22 9:24:00 PM EDT, Partial fill upon patient request if the prescription is for a schedule II opioid drug. Start Date: 11/02/22 Status: Ordered Medication Dispense Status: Completed Total Allowed Fills: 1 Fills Dispensed: 0 Dilaudid Inj 0.5 mg, Injection, IV Push Slowly, Every 15 minutes for 3 doses/times, PRN for Pain , Moderate, andSBP greater than 100, STAT, 12/02/24 5:20:00 AM EDT Start Date: 12/02/24 Stop Date: 12/02/24 Status: Discontinued Medication Dispense Status: Completed Total Allowed Fills: 1 Fills Dispensed: 0 Flonase 50 mcg/inh nasal spray 2 sprays, Nares, Both, Daily in AM, # 1 each, 0 Refills, Maintenance, 08/21/17 4:31:03 PM EDT, [place] Start Date: 08/21/17 Status: Ordered Medication Dispense Status: Completed Quantity: 1.0 Unit: each Total Allowed Fills: 1 Fills Dispensed: 0 Maryann-Lanta By Mouth, 3 times a day after meals and bedtime, 0 Refills, Maintenance, 11/02/22 9:23:00 PM EDT, Partial fill upon patient request if the prescription is for a schedule II opioid drug. Start Date: 11/02/22 Status: Ordered Medication Dispense Status: Completed Total Allowed Fills: 1 Fills Dispensed: 0 Lamotrigine 200 mg, By Mouth, Daily, Refills 0, Maintenance, 11/02/22 9:34:00 PM EDT, Partial fill upon patient request if the prescription is for a schedule II opioid drug. Start Date: 11/02/22 Status: Ordered Medication Dispense Status: Completed Total Allowed Fills: 1 Fills Dispensed: 0 lamotrigine 25 mg oral tablet 50 mg, 2, tablet, By Mouth, Daily at bedtime, Refills 0, Maintenance, 11/02/22 9:33:00 PM EDT, Partial fill upon patient request if the prescription is for a schedule II opioid drug. Start Date: 11/02/22 Status: Ordered Medication Dispense Status: Completed Total Allowed Fills: 1 Fills Dispensed: 0 Mylanta Gas 15 mL, By Mouth, 4 times a day, PRN Dyspepsia, 0 Refills, Maintenance, 11/02/22 9:26:00 PM EDT, Partial fill upon patient request if the prescription is for a schedule II opioid drug. Start Date: 11/02/22 Status: Ordered Medication Dispense Status: Completed Total Allowed Fills: 1 Fills Dispensed: 0 Omeprazole = 40 mg, By Mouth, Daily, 0 Refills, Maintenance, 11/02/22 9:25:00 PM EDT, Partial fill upon patient request if the prescription is for a schedule II opioid drug. Start Date: 11/02/22 Status: Ordered Medication Dispense Status: Completed Total Allowed Fills: 1 Fills Dispensed: 0 ondansetron 4 mg oral tablet 1 tablet = 4 mg, By Mouth, Every 8 hours, 0 Refills, Maintenance, 11/02/22 9:22:00 PM EDT, Partial fill upon patient request if the prescription is for a schedule II opioid drug. Start Date: 11/02/22 Status: Ordered Medication Dispense Status: Completed Total Allowed Fills: 1 Fills Dispensed: 0 pantoprazole 40 mg oral delayed release tablet = 40 mg, By Mouth, 2 times a day, then stay on once daily, # 28 tablet, 0 Refills, Maintenance, 11/08/22 2:09:00 PM EDT, EC Tablet, 160, cm, 11/08/22 10:57:00 EDT, Height, 87.7, kg, 11/04/22 20:42:00 EDT, Dry Weight Start Date: 11/08/22 Stop Date: 11/22/22 Status: Ordered Medication Dispense Status: Completed Quantity: 28.0 Unit: tablet Total Allowed Fills: 1 Fills Dispensed: 0 sucralfate 1 gm oral tablet 1 Gm, 1, tablet, By Mouth, 3 times a day before meals and bedtime, Refills 0, Maintenance, 11/02/22 9:25:00 PM EDT, Partial fill upon patient request if the prescription is for a schedule II opioid drug. Start Date: 11/02/22 Status: Ordered Medication Dispense Status: Completed Total Allowed Fills: 1 Fills Dispensed: 0 Trintellix 20 mg oral tablet 1 tablet = 20 mg, By Mouth, Daily, 0 Refills, Maintenance, 11/02/22 9:23:00 PM EDT, Partial fill uponpatient request if the prescription is for a schedule II opioid drug. Start Date: 11/02/22 Status: Ordered Medication Dispense Status: Completed Total Allowed Fills: 1 Fills Dispensed: 0 valACYclovir 500 mg oral tablet 500 mg, 1, tablet, By Mouth, Daily, Refills 0, Maintenance, 11/02/22 9:25:00 PM EDT, Partial fill upon patient request if the prescription is for a schedule II opioid drug. Start Date: 11/02/22 Status: Ordered Medication Dispense Status: Completed Total Allowed Fills: 1 Fills Dispensed: 0 Ventolin 90 mcg Inhaler Inhalation, Every 6 hours, Refills 0, Maintenance, 11/02/22 9:24:00 PM EDT Start Date: 11/02/22 Status: Ordered Medication Dispense Status: Completed Total Allowed Fills: 1 Fills Dispensed: 0 Vyvanse 30 mg oral capsule 1 capsule = 30 mg, By Mouth, Daily in AM, 0 Refills, Maintenance, 11/02/22 9:26:00 PM EDT, Partial fill upon patient request if the prescription is for a schedule II opioid drug. Start Date: 11/02/22 Status: Ordered Medication Dispense Status: Completed Total Allowed Fills: 1 Fills Dispensed: 0 Zolpidem = 10 mg, Daily at bedtime, 0 Refills, Maintenance, 11/02/22 9:23:00 PM EDT, Partial fill upon patientrequest if the prescription is for a schedule II opioid drug. Start Date: 11/02/22 Status: Ordered Medication Dispense Status: Completed Total Allowed Fills: 1 Fills Dispensed: 0 Mental Status Mental Status Assessment Assessment Assessment Component Result Effecti ve [place] coma score total 15 12/02 Mental Status Assessment Assessment Assessment Component Result Effecti Lyn coma score total 15 12/02 Body height 160 12/02/24 Dry body weight Measured 115 12/02 Body weight 115 12/02/24 Mental Status Assessment Assessment Assessment Component Result Effecti ve Lyn coma scale 15 12/02/24 Problem List Condition Confirmation Course Effective Dates Status Health St atus Informant H/O: migraine Confirmed 06/13/07 Active Internal hemorrhoid Confirmed Active Irritable bowel syndrome Confirmed Active Obstructive Sleep Apnea, moderate, declines mask Confirmed 03/2009 Active PTSD - Post-traumatic stress disorder Confirmed 06/13/07 Active Severe obesity Confirmed Active Vital Signs Most recent to oldest [Reference Range]: 1 2 3 Height 160 cm (12/02/24 12:32 AM) 160 cm (12/02/24 12:29 AM) Weight 115 kg (12/02/24 12:32 AM) 115 kg (12/02/24 12:29 AM) Oxygen Saturation [94-100 %] 96 % (12/02/24 8:00 AM) 94 % (12/02/24 5:49 AM) 94 % (12/02/24 5:37 AM) Pulse Rate [55-90 bpm] 88 bpm (12/02/24 8:00 AM) 85 bpm (12/02/24 5:49 AM) 87 bpm (12/02/24 5:37 AM) Body Mass Index [18.5-24.99 kg/m2] 44.92 kg/m2 *>HHI* (12/02/24 12:29 AM) Blood Pressure [90-138/55-84 mm Hg] 119/106mm Hg (12/02/24 8:00 AM) 108/72mm Hg (12/02/24 5:49 AM) 127/74mm Hg (12/02/24 5:37 AM) Respiratory Rate [16-30 br/min] 16 br/min (12/02/24 8:00 AM) 16 br/min (12/02/24 5:49 AM) 16 br/min (12/02/24 5:47 AM) Temperature [96.8-100.4 DegF] 98.0 DegF (12/02/24 2:08 AM) 98.0 DegF (12/02/24 12:29 AM) Mode of Delivery (Oxygen) Room air (12/02/24 8:00 AM) Room air (12/02/24 5:49 AM) Room air (12/02/24 5:37 AM) Blood pressure sites Arm, left (12/02/24 8:00 AM) Arm, left (12/02/24 5:49 AM) Arm, left (12/02/24 5:37 AM) Temperature Route Oral (12/02/24 2:08 AM) Oral (12/02/24 12:29 AM) Dry Weight 115 kg (12/02/24 12:32 AM) 115 kg (12/02/24 12:29 AM) Weight Obtained Via Standing scale (12/02/24 12:29 AM) Dry Weight Obtained Via Standing scale (12/02/24 12:29 AM) Social History Social History Type Response Smoking Status Never (less than 100 in lifetime) entered on: 11/04/22 Sex Female Sex Representation Female (finding) Status Not EKG study * Event Display: ECG 12-Lead Authored Date: Please click on pdf link to open report * Event Display: ECG 12-Lead Authored Date: Ventricular Rate: 98 BPM QRS Duration: 90 ms Q-T Interval: 348 ms QTC Calculation(Bazett): 444 ms R Bon[place]: 30 degrees T [place]: 12 degrees Normal sinus rhythm Abnormal ECG No previous ECGs available Confirmed by DARRYL MOY MD ([id number]) on 12/02/2024 8:53:53 AM [place]: DARRYL MOY MD Note * Alyssa Patino NP: PERFORM Event Display: Patient Education Leaflets Authored Date: [id number] Vomiting (adult) ?? [id number] Vomiting (adult) Vomiting is when stomach contents come out of the mouth. Nausea is the unpleasant feeling of the need to vomit. It may occur with dizziness, discomfort in the stomach (sour stomach), and no desire toeat. Vomiting is a common symptom that may be due to different causes. These include gastroenteritis (stomach flu), food poisoning, and gastritis. Or it may be a side effect of certain medicines, such as opioids. Other more serious causes of vomiting may be hard to diagnose early in the illness. That's why it's important to watch for the warning signs listed below. Some people may also vomit due to strong emotions like fear or from motion sickness. The main danger from repeated vomiting is dehydration. This is because of the loss of water and minerals from the body. When this occurs, your body fluids must be replaced. Other problems that can happen from vomiting include: ??? Electrolyte imbalance ??? Tears in the esophagus ??? Breathing in of stomach contents (aspiration) ??? Weight loss ??? Not getting enough nutrients Home care ??? If symptoms are severe, rest at home for the next 24 hours. ??? Because your symptoms may be from an infection, wash your hands often and well. Use soap and clean, running water or alcohol-based director regulatory compliance to keep from spreading the infection to others. ??? Wash your hands for at least 20 seconds. Scrub all surfaces of your hands, including between your fingers and under your fingernails each time you wash. Humming the Happy Birthday song twice while you wash is an easy way to make sure you've washed for 20 seconds. ??? Wash your hands after using the toilet, before and after preparing food, and before eating. Also wash them after changing a diaper, cleaning a wound, caring for a sick person, blowing your nose, coughing, or sneezing. You should also wash your hands after touching pet food or treats and touching an animal or animal waste. ??? You may use acetaminophen??or NSAID medicines such as ibuprofen or naproxen to control fever, unless another medicine was prescribed. Talk with your provider before using these medicines if you have chronic liver or kidney disease or ever hada stomach ulcer or digestive bleeding. Never give aspirin to anyone younger than 18 who is ill witha fever. It may cause severe liver damage. Don't use NSAID medicines if you are already taking one for another condition such as arthritis or take aspirin for heart disease or after a stroke. ??? Don't use tobacco or drink alcohol. These may make your symptoms worse. If you have trouble stopping either substance, ask your provider for treatment resources. ??? If medicines for vomiting were prescribed, take as directed. Tell your provider if they don't work within the expected time period. Once vomiting stops, then follow these guidelines: During the first 12 to 24 hours, you can have: ??? Fruit juices, like apple and grape, clear fruit drinks, and electrolyte replacement drinks ??? Beverages such as water, soft drinks without caffeine, mineral water (plain or flavored), and decaffeinated tea and coffee ??? Clear broth and bouillon ??? Desserts like plain gelatin, ice pops, and fruit juice bars During the next 24 hours, you may add the following to the above: ??? Hot cereal, plain toast, bread, rolls, and crackers ??? Plain noodles, rice, mashed potatoes, and chicken noodle or rice soup ??? Unsweetened canned fruit such as applesauce or bananas (no pineapple or citrus) ??? Yogurt (6 to 8 ounces) ??? Limited amounts of caffeine and chocolate ??? No spices or seasonings except salt During the next 24 hours, you can gradually go back to your normal diet, as you feel better and your symptoms lessen. ?? Follow-up care Follow up with your healthcare provider as advised. ?? When to seek medical advice Call your healthcare provider right away if any of these occur: ??? Constant pain in the lower right side of your belly or increasing general belly pain ??? Continued vomiting (unable to keep liquidsdown) for 24 hours ??? Vomiting blood or what looks like coffee grounds ??? Swollen belly ??? Frequent diarrhea (more than 5 times a day), or blood (red or black color) or mucus in diarrhea ??? Peeing less than usual or extreme thirst ??? Weakness, dizziness, or fainting ??? Unusually drowsy or confused ??? Fever of 100.4??F (38??C) or higher, or as directed by your provider ??? Yellow color of the eyes or skin ??? Other symptoms that get worse or new symptoms ?? Last Reviewed Date: 2023 00:00:00 ?? [id number] [employer]. All rights reserved. This information is not intended as a substitute for professional medical care. Always follow your healthcare professional's instructions. ?? Patient Care team information Care Team Personnel Name: Rain Demarco RN Position: [facility] RN Member Role: Primary Care Nurse Name: Bridgette Patterson RN Position: [facility] RN Member Role: Primary Care Nurse Name: Samantha Mccray RN Position: S RN Member Role: Primary Care Nurse Name: Karolina Light RN Position: S RN Member Role: Primary Care Nurse Name: Janet Harding MD Position: Reference Physician Member Role: PCP Address: [address] [place] [address] Telecom: Name: Jeri Santos MD Position: [facility] PHOTOGRAMMETRIC ENGINEER MD Member Role: [employer] PHOTOGRAMMETRIC ENGINEER Physician Name: Breana Duff RN Position: [facility] RN Member Role: Primary Care Nurse Name: Inessa Hollis RN Position: [facility] RN Member Role: Primary Care Nurse Name: Angelina Madden RN Position: [facility] Onco RN Member Role: Primary Care Nurse Care Team Related Persons Name: SARAH LUKE Insurance Providers Guarantor name: BREE[employer] Health Plan Information #: 1 Payer: [employer] Payer Identifier: Member Number: [id number] Group Number: [facility] Subscriber Identifier: [id number] Relationship to Subscriber: self Coverage Type: NA Coverage Verification Date: Telecom: Address:
--- NOTE | ~2024-12-05 | CT_ITS ---
CLINICAL HISTORY: Rt side pain, hx of randa, hyst, and colostomy CT abdomen and pelvis with contrast Comparison: CT of the abdomen and pelvis from 10/07/2024 and 10/30/2024 Findings: Mild bibasilar atelectasis and/or pneumonitis of the imaged lung bases. Focal fat deposition of the liver noted. The gallbladder is surgically absent. The adrenal glands are normal. Pancreas unremarkable for CT. The spleen is nonenlarged. No hydronephrosis. Small mesenteric and periaortic lymph nodes are nonspecific and likely reactive. Peristomal hernia contains fat and mesentery of the time of the imaging with apparent left-sided colostomy. Wall thickening of the large intestine is nonspecific and may reflect colitis, including transverse colon and approaching of the ostomy. The appendix is not definitively seen the uterus is surgically absent. Mild wall of the urinary bladder is nonspecific. No adnexal soft tissue mass by CT. Degenerative changes include the hips, SI joints, and spine. IMPRESSION: 1. New wall thickening of the large intestine is nonspecific and concerning for colitis, including imaged transverse colon. 2. No small bowel obstruction. 3. Left-sided colostomy with small peristomal hernia containing fat and mesentery of the time of the imaging. This document has been electronically signed by: Deshaun Steiner MD on 12/05/2024 19:28:47
[2024-12-05 13:13] VITALS: BP 154/65; PULSE 92; RESP 18; TEMP 36.3; O2SAT 98; BMI 40.7
--- NOTE | 2024-12-05 13:13 | ED.GENADULT ---
HPI - General Adult General Chief complaint: Abdominal Pain Stated complaint: pain Time Seen by Provider: 12/05/24 15:18 History of Present Illness ED Provider: Ta VILLA narrative: The patient is a 44-year-old female with a history of complex medical problems. She has a colostomy earlier this year in July because of chronic problems related to constipation. She reports a history of dysmotility problems and says that she has gastroparesis. She apparently had a cholecystectomy 3 years ago because of biliary dyskinesia. She also reports a history of interstitial cystitis. She has had a hysterectomy. The patient was last hospitalized at this hospital in July. She says that over the last several days she has had a new pain which is pain in her right upper quadrant. She describes this as liver pain. She says that she has chronic pain that she is used to dealing with but that this pain, which has been present for about 5 days, is a new pain and is extremely uncomfortable. She went to the emergency room at [facility] 2 days ago. She was treated symptomatically and had labs done that were unremarkable. She had no imaging studies done and was discharged. She continues to have the pain in her right side and she comes to the emergency room today because of this ongoing pain and concern that no imaging was done which she was at [facility]. She says that she has felt feverish and chilled but she has not checked her temperature so she can not say if she actually had a fever. She has chronic nausea. She has a occasional vomiting. She says that she has had a lot of output through her ostomy and she thinks that her ostomy output might look like gastric secretions because the output is green. When asked if she is having urinary symptoms she says that she has chronic urinary discomfort because of interstitial cystitis. Related Data Home Medications ?Medication ?Instructions ?Recorded ?Confirmed lamotrigine 200 mg tablet 200 mg PO DAILY 01/02/23 09/17/24 valacyclovir 500 mg tablet 500 mg PO DAILY 01/02/23 09/17/24 vortioxetine 20 mg tablet 20 mg PO DAILY 01/02/23 09/17/24 (Trintellix) clonazepam 1 mg tablet 1 mg PO TID 01/08/24 09/17/24 famotidine 20 mg tablet 20 mg PO BID 01/08/24 09/17/24 hydroxyzine HCl 25 mg tablet 25 mg PO BEDTIME 01/08/24 09/17/24 lamotrigine 25 mg tablet 50 mg PO BEDTIME 01/08/24 09/17/24 bisacodyl 5 mg tablet,delayed 10 mg PO BEDTIME 07/25/24 09/17/24 release fluticasone propionate 50 2 spray intranasal DAILY PRN 07/25/24 09/17/24 mcg/actuation nasal Allergy Symptoms spray,suspension magnesium oxide 400 mg PO DAILY 07/25/24 09/17/24 mirabegron 50 mg tablet,extended 50 mg PO DAILY 07/25/24 09/17/24 release 24 hr (Myrbetriq) eszopiclone 3 mg tablet (Lunesta) 3 mg PO BEDTIME 08/06/24 09/17/24 sennosides 8.6 mg tablet (senna) 17.2 mg PO BEDTIME PRN constipation 08/12/24 09/17/24 tamsulosin 0.4 mg capsule 0.4 mg PO BEDTIME 08/12/24 09/17/24 Previous Rx's ?Medication ?Instructions ?Recorded cholecalciferol (vitamin D3) 125 125 mcg PO DAILY #90 caps 05/30/24 mcg (5,000 unit) capsule methylcellulose (laxative) 500 mg 500 mg PO DAILY #90 tabs 05/30/24 tablet (Citrucel) lactulose 10 gram/15 mL oral 20 g (30 mL) PO BID #1,200 mL 08/01/24 solution mesalamine 0.375 gram 1.5 g (4 x 0.375 gram) PO DAILY 08/01/24 capsule,extended release 24 hr #90 caps pramoxine 1 % topical foam 1 appl MA BID #15 grams 08/01/24 docusate sodium 100 mg capsule 100 mg PO BID #60 caps 08/20/24 (Colace) polyethylene glycol 3350 17 17 g PO DAILY #510 grams 08/20/24 gram/dose oral powder (Miralax) tramadol 50 mg tablet 50 mg PO BID PRN pain #12 tabs 09/24/24 prucalopride 2 mg tablet 2 mg PO DAILY #30 tabs 10/31/24 (Motegrity) metoclopramide HCl 5 mg tablet 5 mg PO Q8H PRN nausea and 11/13/24 vomiting #20 tabs esomeprazole magnesium 40 mg 40 mg PO DAILY #90 caps 11/24/24 capsule,delayed release ondansetron 4 mg disintegrating 4 mg PO Q8H PRN nausea and 11/24/24 tablet vomiting #30 tabs sucralfate 1 gram tablet 1 g PO BID #60 tabs 11/24/24 amuvro-ivktsbrk-dwlgjzl 1 cap PO QID #120 caps 11/25/24 12,000-38,000-60,000 unit capsule,delayed rel (Creon) Allergies Allergy/AdvReac Type Severity Reaction Status Date / Time propofol Allergy Intermediate Itching Verified 12/05/24 13:18 morphine Allergy Mild Itching Verified 12/05/24 13:18 Review of Systems Review of Systems: Yes all other systems are reviewed and are negative PMF Past Medical History Medical History Postprocedural seroma of skin and subcutaneous tissue following other procedure Colostomy in place Hx of flexible sigmoidoscopy Proctosigmoiditis Stricture of sigmoid colon Colon wall thickening Obesity, Class II, BMI 35-39.9 IBS (irritable bowel syndrome) History of colitis Gastric ulcer Interstitial cystitis Occipital neuralgia of right side History of suicidal ideation Anxiety Agoraphobia MDD (major depressive disorder) PTSD (post-traumatic stress disorder) Surgical History Hx of colonoscopy Hx of section H/O: hysterectomy Hx of cholecystectomy (~12/2022) Family History Family History Father Prostate cancer Maternal Uncle Colon cancer Maternal Grandmother Breast cancer Social History Social History Household Members: Spouse and Children Housing: House Do you presently have visiting nurse or other home services: Yes ([employer] to help with ADLs) Alcohol intake: never 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 Patient Tobacco Use Status: Never used Tobacco Substance Use Type: Marijuana service: No Physical Exam ED Vital Signs: Vital Signs - 24 hr 12/05/24 13:13 12/05/24 14:00 12/05/24 16:50 Temperature 97.3 F 98.1 F 98.2 F Pulse Rate 92 83 82 Respiratory Rate 18 16 18 Blood Pressure 154/65 H 120/88 127/66 Pulse Oximetry 98 97 97 Oxygen Delivery Method Room Air Room Air Room Air 12/05/24 20:47 Temperature 98.2 F Pulse Rate 82 Respiratory Rate 18 Blood Pressure 127/66 Pulse Oximetry 97 Oxygen Delivery Method Room Air BMI result Body Mass Index 40.7 Const Other: The patient is a 44-year-old female with a BMI of 40 who is awake and alert and looks chronically ill. She has a very sad demeanor. She does not appear obviously toxic or in distress however. HENMT Other: The face is symmetrical. ?Mucous membranes moist. Eyes Other: Pupils are round equal, conjunctivae are clear, extraocular movements intact Neck Neck: Yes normal visual inspection and Yes full ROM Resp Effort & Inspection: normal respiratory effort Auscultation: clear to auscultation bilaterally Cardio Rate: regular rate Rhythm: regular rhythm Heart sounds: S1 normal heart sound present and S2 normal heart sound present GI Other: The patient has a large abdomen. There is a colostomy bag in the left lower quadrant. She is very tender with the palpation in the right upper quadrant but she is also tender elsewhere in the abdomen. Skin Other: Skin is pale and dry Neuro Other: The patient is awake and alert. She has a subdued affect but a clear mental status. Cranial nerves are grossly intact. She moves her extremities grossly symmetrically. Extrem Other: Good pulses in the feet. No asymmetry. No pitting edema. Course Course Course Narrative: This is a rapid medical exam performed by Sara Epstein NP: Additional HPI, ROS, PE not included below will be deferred to primary provider. Patient is a 44-year-old female with pmhx of psychiatric history including previous SI attempts, depression, anxiety, PTSD, body dysmorphia, agoraphobia, PNES, asthma, chronic abdominal pain/IBS and multiple abdominal surgeries including previous cholecystectomy, hysterectomy, and a colostomy that she states was placed due to her dysmotility/constipation presenting with complaint of R sided abdominal and flank pain. Seen at [facility] a few days ago for same. Plan: labs, UA Reevaluation(s) Reevaluation #1: she has no sig findings on CT scan and lack of WBC count I would not treat with abx, she also reports she cannot eat or drink at this time and feels unsafe to go home. She is very unusual in her affect and states I don't want you to think I want to stay here. she is going to talk to her partner whether not not they should stay. I was told by RN after they discussed options her and her partner want to go home. At this time she states she has nausea medications I would hold off abx only abnormality is elevated CRP. Medications Administered Discontinued Medications Generic Name Dose Route Start Last Admin Trade Name Corky PRN Reason Stop Dose Admin Droperidol 1.25 mg 12/05/24 15:50 12/05/24 16:26 Droperidol 5 Mg/2 Ml Vial IVPUSH 12/05/24 15:51 1.25 mg ONCE ONE Administration Hydromorphone HCl 1 mg 12/05/24 15:50 12/05/24 16:27 Hydromorphone Hcl 1 Mg/Ml Syringe IVPUSH 12/05/24 15:51 1 mg ONCE ONE Administration Protocol Sodium Chloride 1,000 mls @ 999 mls/hr 12/05/24 16:00 12/05/24 16:27 Ns IV 12/05/24 17:00 999 mls/hr .Q1H1M MARIAH Administration Iohexol 100 ml 12/05/24 18:45 12/05/24 18:45 Iohexol 350 Mg/Ml 100 Ml Infus..Btl IV 12/05/24 18:46 100 ml ONCE ONE Administration Medical Decision Making Medical Decision Making MDM Narrative: The patient is a 44-year-old female with a complex medical history, particularly with regard to her abdomen who was here with right-sided abdominal pain. The pain has been present for about 5 days. She says this is different than her usual chronic pain for which he normally only takes ibuprofen and acetaminophen she says. The patient was treated and released from [facility] 3 days for the same pain in his frustrated that she had no imaging done at [facility]. She has difficult IV access. My colleague started an ultrasound-guided peripheral IV for phlebotomy and IV access. Labs were drawn and she was given IV hydromorphone and droperidol as well as IV fluids. I have ordered a CT scan of the abdomen and pelvis to evaluate her right-sided pain. I will be signing out the patient at the end of my [facility]. Lab Data 12/05/24 15:50 12/05/24 17:03 Labs: Lab Results 12/05/24 12/05/24 Range/Units 15:50 17:03 WBC 6.4 (4.8-10.8) X10*3/uL RBC 4.95 (4.20-5.50) X10*6/uL Hgb 13.2 (12.0-16.0) g/dl Hct 38.6 (37.0-47.0) % MCV 78.0 L (80.0-98.0) fL MCH 26.7 L (27.0-33.0) pg MCHC 34.2 (31.0-35.0) g/dl RDW 14.3 (11.0-16.0) % Plt Count 405 H (160-400) X10*3/uL MPV 9.4 (9.4-12.3) fL Immature Gran % (Auto) 0.3 (0.0-0.4) % Neut % (Auto) 65.0 (45-73) % Lymph % (Auto) 28.7 (20-40) % [place] % (Auto) 5.1 (2-11) % Eos % (Auto) 0.6 (0-4) % Baso % (Auto) 0.3 (0-2) % Lymph # (Auto) 1.8 (1.2-4.9) X10*3/uL [place] # (Auto) 0.3 (0.1-1.2) X10*3/uL Eos # (Auto) 0.0 (0.0-0.4) X10*3/uL Baso # (Auto) 0.0 (0.0-0.2) X10*3/uL Abs Immat Gran (auto) 0.02 (0.00-0.03) X10*3/uL Absolute Neuts (auto) 4.2 (2.0-8.3) x10*3/uL Absolute Nucleated RBC 0.000 (0.0-0.012) X10*3/uL Nucleated RBC % (auto) 0.0 (0.0-0.2) /100WBC PT 11.3 (10.9-12.4) SEC INR 1.0 (0.9-1.1) Sodium 138 (135-145) mmol/L Potassium 4.1 (3.3-5.1) mmol/L Chloride 106 (96-108) mmol/L Carbon Dioxide 24 (22-29) mmol/L Anion Gap 12 (12-20) BUN 10 (9-16) mg/dL Creatinine 0.67 (0.5-1.4) mg/dL Estim Creat Clear Calc 125.0 Estimated GFR > 60 Random Glucose 102 (60-115) mg/dL Calcium 8.5 D (8.4-10.2) mg/dL Magnesium 2.1 (1.6-2.6) mg/dL Total Bilirubin 0.2 (0.0-1.0) mg/dL AST 21 (5-31) U/L ALT 22 (0-31) U/L Alkaline Phosphatase 100 (39-117) U/L C-Reactive Protein 1.46 H (< or = 0.50) mg/dL Total Protein 7.1 (6.5-8.0) g/dL Albumin 3.9 (3.5-5.0) g/dL Lipase 21 (8-78) U/L Beta HCG, Quant < 2 mIU/mL Discharge Plan Discharge Clinical Impression: Right sided abdominal pain Nausea & vomiting Qualifiers: Vomiting type: unspecified Qualified Code(s): R11.2 - Nausea with vomiting, unspecified Patient Disposition: Home, Self-Care Instructions: Acute Nausea and Vomiting (ED), Abdominal Pain (ED) Additional Instructions: labs reassuring other than mild elevation in inflammatory marker CT scan of abdomen shows nonspecific possible inflammation of the transverse colon given lack of fever here and normal WBC count I would hold off antibiotics but monitor for fevers over 101, worsening pain, bloody stools or any other concerns please follow up with your doctor next week. Prescriptions: No Action tramadol 50 mg tablet 50 mg PO BID PRN (Reason: pain) Qty: 12 0RF metoclopramide HCl 5 mg tablet 5 mg PO Q8H PRN (Reason: nausea and vomiting) Qty: 20 0RF Creon 12,000-38,000 -60,000 unit capsule,delayed release(DR/EC) 1 cap PO QID Qty: 120 0RF Rx Instructions: administer with meals and/or snacks -- MAX OF 4 CAPS PER DAY. valacyclovir 500 mg tablet 500 mg PO DAILY Trintellix 20 mg tablet 20 mg PO DAILY lamotrigine 200 mg tablet 200 mg PO DAILY Rx Instructions: 200mg in morning, 25mg at night lamotrigine 25 mg tablet 50 mg PO BEDTIME Rx Instructions: 200mg in morning, 25mg at night sennosides [senna] 8.6 mg tablet 17.2 mg PO BEDTIME PRN (Reason: constipation) tamsulosin 0.4 mg capsule 0.4 mg PO BEDTIME docusate sodium [Colace] 100 mg capsule 100 mg PO BID Qty: 60 3RF polyethylene glycol 3350 [Miralax] 17 gram/dose powder 17 g PO DAILY Qty: 510 2RF bisacodyl 5 mg tablet,delayed release (DR/EC) 10 mg PO BEDTIME magnesium oxide 400 mg magnesium capsule 400 mg PO DAILY mirabegron [Myrbetriq] 50 mg tablet extended release 24 hr 50 mg PO DAILY fluticasone propionate 50 mcg/actuation [place],Suspension 2 spray INTRANASAL DAILY PRN (Reason: Allergy Symptoms) Rx Instructions: administer into each nostril lactulose 10 gram/15 mL Solution 20 g PO BID Qty: 1200 0RF pramoxine 1 % Foam 1 appl MA BID Qty: 15 2RF mesalamine 0.375 gram Capsule,Extended Release 24hr 1.5 g PO DAILY Qty: 90 0RF famotidine 20 mg tablet 20 mg PO BID hydroxyzine HCl 25 mg tablet 25 mg PO BEDTIME clonazepam 1 mg tablet 1 mg PO TID cholecalciferol (vitamin D3) 125 mcg (5,000 unit) capsule 125 mcg PO DAILY Qty: 90 3RF Citrucel 500 mg tablet 500 mg PO DAILY Qty: 90 2RF Rx Instructions: take it with full glass of water eszopiclone [Lunesta] 3 mg tablet 3 mg PO BEDTIME prucalopride [Motegrity] 2 mg tablet 2 mg PO DAILY Qty: 30 2RF ondansetron 4 mg tablet,disintegrating 4 mg PO Q8H PRN (Reason: nausea and vomiting) Qty: 30 1RF sucralfate 1 gram tablet 1 g PO BID Qty: 60 3RF esomeprazole magnesium 40 mg capsule,delayed release(DR/EC) 40 mg PO DAILY Qty: 90 5RF Interventions: ED Discharge Assessment Last Done: 12/05/24 20:47 Discharge Date/Time: 12/05/24 21:00 Print Language: Lithuanian
--- NOTE | 2024-12-05 13:48 | PC.NURSE ---
Pt states she started w/ R flank pain on Sunday, was seen at [facility], no imaging done, vomiting yesterday here today for worsening R flank pain radiating to back. Pt has LLQ colostomy functioning without complications.
[2024-12-05 14:00] VITALS: BP 120/88; PULSE 83; RESP 16; TEMP 36.7; O2SAT 97
--- OUTSIDE RECORDS SUMMARY | 2024-12-05 14:21 | XMS_ITS | Clinical Summary ---
Author Organization [employer] [facility] Address [address] [place] [address] Care Team Providers Care Carton Maker Name Role Phone Nori Posey MD Primary Care Provider [phone] Allergies Active Allergy Reactions Criticality Noted Date Comments Bridger 08/30/2023 Medications Medication Sig Dispensed Refills Start [...] age to complete this topic Care Teams Carton Maker Relationship Specialty Start Date End Date Nori Posey MD [address] [place] [id number] PCP - General Internal Medicine 08/01/23
--- OUTSIDE RECORDS SUMMARY | 2024-12-05 14:22 | XMS_ITS | Encounter Summary ---
Author Organization [employer] Address [address] [place] [address] Care Team Providers Care Supervisor Correspondence Section Name Role Phone Janet Harding MD Primary Care Provider [phone] Reason for Visit * Reason Onset Date Comments APPEALS COORDINATOR 2024 Encounter Details Date Type Department Care Team ([facility] st Contact Info) Description 2024 Telephone Internal Medicine - [facility] [address] [facility] [place] [address] Janet Harding MD [address] [place] [address] Social History Tobacco Use Types Packs/Day Years [...] PCP she was told she needs more APPEALS COORDINATOR hours. Pt states she doesn't know how to go about this. She states her APPEALS COORDINATOR told her she needs something from the [...] to speak to nurse in regard to APPEALS COORDINATOR services. She states shewas advised to call [...] Office Visit Internal Medicine - [facility] [address], [place] [phone] Janet Harding MD [address], [place] 03/31/2025 11:00 AM EST Office Visit [facility] [address] [facility] [address] [place] [id number] Rocío Watkins PA [facility] [place] [address] documented as of this encounter Visit Diagnoses Not on filedocumented in this encounter Care Teams Supervisor Correspondence Section Relationship Specialty Start Date End Date Janet Harding MD [address] [place] [address] PCP - General Internal Medicine 08/04/24 documented as of this encounter
--- OUTSIDE RECORDS SUMMARY | 2024-12-05 14:22 | XMS_ITS | Clinical Summary ---
Author Organization [facility] Address [address] [place] [address] Phone Care Team Providers Care Premium Cancellation Clerk Name Role Phone Janet Harding MD Primary Care Provider [phone] Allergies Active Allergy Reactions Criticality Noted Date Comments Morphine 11/25/2024 Propofol Rash Medium 01/30/2023 Mild dermal reaction [...] 024 Active vortioxetine (TRINTELLIX) 20 mg tablet Take [...] MINUTES BEFORE A MEAL 90 tablet 3 Active esomeprazole (NexIUM) [address] capsule [...] mg tablet Take by mouth. Activ e tamsulosin (FLOMAX) 0.4 mg 24 hr capsule Take 1 capsule (0.4 mg total) by mouth. at bedtime Active polyethylene glycol (PEG) 17 gram/dose oral powder Active Vitamin D3 50 mcg (2,000 unit) capsule Take 1 capsule (2,000 Units total) by mouth 1 (one) time each day. Active Cholestyramine Light 4 gram powder MIX 4 GRAMS WITH LIQUID AND DRINK FOUR TIMES A DAY BEFORE MEALS AND BEFORE BEDTIME. DO NOT TAKE ANY MEDS LESS THAN 1 HOUR BEFORE AND 4-6 H Active docusate sodium (COLACE) 100 mg capsule Active eszopiclone (LUNESTA) 3 mg tablet Take 1 tablet (3 mg total) by mouth at bedtime. Max Daily Amount: 3 mg Active HYDROmorphone (DILAUDID) 2 mg tablet Active lactulose (CHRONULAC) solution Active magnesium oxide 400 mg magnesium capsule Take 1 capsule by mouth 1 (one) time each day. Active Apriso 0.375 gram 24 hr capsule Active mirabegron (MYRBETRIQ) 50 mg 24 hr tablet Take 1 tablet (50 mg total) by mouth 1 (one) time each day. Active senna 8.6 mg tablet TAKE TWO TABLETS BY MOUTH EVERY DAY AT BEDTIME NEEDED FOR CONSTIPATION 025 Active metoclopramide (REGLAN) 5 mg tablet take 1 tablet orally every 8 hours as needed for nausea and vomiting 025 Active sucralfate (CARAFATE) 1 gram tablet Take 1 tablet (1 g total) by mouth. 023 Active famotidine (PEPCID) 20 mg tabletIndications :Slow transit constipation,Yaron roparesis TAKE 1 TABLET BY MOUTH TWICE A DAY 180 tablet 025 Active famotidine (PEPCID) 20 mg tablet TAKE 1 TABLET BY MOUTH TWICE A DAY 180 tablet 025 2024 Discontinued Active Problems Problem Noted Date Diagnosed Date Colostomy in place ([facility] V24, [facility] V28) Class 1 obesity 11/24/2024 Internal hemorrhoid 11/24/2024 Irritable bowel syndrome 11/24/2024 Obstructive sleep apnea syndrome 11/24/2024 Agoraphobia with panic disorder 03/06/2022 Alopecia (capitis) totalis 03/06/2022 Body dysmorphic disorder 03/06/2022 History of suicidal behavior 03/06/2022 HSV-2 (herpes simplex virus 2) infection 022 Major depressive disorder 03/06/2022 Migraine 03/06/2022 Overview (03/03/2024): Amitryptilline daily PTSD (post-traumatic stress disorder) 03/06/2022 Encounters Date Type Department Care Team Description 11/25/2024 2:40 PM EDT Consult Gastroenterology - [address] [address] Julian Sanchez MD Slow transit constipation (Primary Dx); Gastroparesis 2024 Telephone Internal Medicine - [facility] [address] [address] Janet Harding MD 10/29/2024 8:36 AM EDT - 10/29/2024 11:59 PM EDT Hospital Encounter [facility] MRI [address] [place] [address] Gait abnormality; Migraine without status migrainosus, not intractable, unspecified migraine type Discharge Disposition: Home or Self Care 10/29/2024 8:29 AM EDT - 10/29/2024 11:59 PM EDT Hospital Encounter [facility] MRI [address] [place] [address] Gait abnormality; Migraine without status migrainosus, not intractable, unspecified migraine type Discharge Disposition: Home or Self Care 09/26/2024 12:30 PM EDT Office Visit [facility] [address] [address] Yossi Marina MD Gait abnormality (Primary Dx); Migraine without status migrainosus, not intractable, unspecified migraine type; Seizure (CMS/HCC V24, CMS/HCC V28); Seizure-like activity (CMS/HCC V24, CMS/HCC V28) 09/19/2024 2:55 PM EDT - 09/19/2024 7:09 PM EDT Emergency [facility] Emergency [address] [place] [address] Discharge Disposition: Home or Self Care 09/19/[address] [phone] Roxanne Gomez [place] 09/04/2024 10:30 AM EDT [facility] [address] [place] [address] Janet Harding MD Hospital discharge follow-up (Primary Dx); Major depressive disorder, remission status unspecified, unspecified whether recurrent; PTSD (post-traumatic stress disorder); Interstitial cystitis; Presence of sigmoid colostomy (CMS/HCC V24, CMS/HCC V28); Neuropathy; Weakness of both lower extremities from Last 3 Months Immunizations Name Administration Dates Next Due Tdap Tetanus diptheria acell ular pertussis (Boostrix; Adacel) 7yo and older 05/04/2023 Surgical History Surgery Date Site/Laterality Comments CHOLECYSTECTOMY PROCEDURE: [place] LAPAROSCOPY SURG CHOLECYSTECTOMY HYSTERECTOMY 2014 PROCEDURE: HISTORICAL [...] stress disorder) Suicide and self-inflicted i njury ([facility] V24, [facility] V28) DX:Suicide and self-inflict ed injury ([facility]) [...] DX:Guaiac positive stools Hematuria DX:Hematuria Uterine cancer ([facility] V24, [facility] V28) 2014 DX:Uterine cancer ([facility]) Interstitial cystitis DX:Interst itial cystitis Herpes genitalis in women DX:Her pes genitalis in women Family History Medical History Relation Name Comments Parkinson's Disease Father Prostate cancer Father Breast cancer Other Colon cancer Other Relation Name Status Comments Father Other Social History Tobacco Use Types Packs/Day Years Used Date Smoking Tobacco: Never Smokeless Tobacco: Never Tobacco Cessation:Counseling Given: Not Answered Alcohol Use [...] EDT Inhaled Oxygen Concentration - - Weight 107 kg (236 lb 9.6 oz) 11/25/2024 2:32 PM EDT Height 160 cm (5' 3 ) 11/25/2024 2:32 PM EDT Body Mass Index 41.91 11/25/2024 2:32 PM EDT Plan of Treatment Upcoming Encounters Date Type Department Care Team (Late st Contact Info) Description 03/24/2025 11:30 AM EST Office Visit Internal Medicine - [facility] [address] [place], [place] [phone] Janet Harding MD [address] [place], [place] 03/31/2025 11:00 AM EST Office Visit [facility] [address] [place] [phone] Rocío Watkins, MARYELLEN [address] [place] [address] Health Maintenance Due Date Last Done Comments [...] (11/12/2024) Anatomical Region Laterality Modality Nuclear Medicine Provider [facility] IM NM PROCEDURES Final Result * MR Brain [...] Signed Date: 10/29/2024 15:57 ET Workstation ID: [id number] Transcribed By: Self Edit Transcribed Date: 10/29/2024 [...] Signed Date: 10/29/2024 15:57 ET Workstation ID: [id number] Transcribed By: Self Edit Transcribed Date: 10/29/2024 [...] Signed Date: 10/29/2024 16:00 ET Workstation ID: [id number] Transcribed By: Self Edit Transcribed Date: 10/29/2024 [...] Signed Date: 10/29/2024 16:00 ET Workstation ID: [id number] Transcribed By: Self Edit Transcribed Date: 10/29/2024 15:57 ET Yossi Marina MD G MRI PROCEDURES Final Result * External CT Report (10/07/2024) Only the most recent of2 resultswithin the time period is included. Anatomical Region Laterality Modality Computed Tomogra phy us Provider [facility] IMG CT PROCEDURES Final Result * Depression Screening (05/04/2023) Depression Screening Abstracted [facility] Provider HEALTH MAINTENANCE Final Result * JOE SCREENING DIGITAL (06/05/2022 11:27 AM EST) Anatomical Region Laterality Modality Mammography 06/05/2022 8:32 AM EST Narrative 06/05/2022 11:27 AM EST [facility] Diagnostic Imaging Department [address] [place], [place] [id number] Patient: PAULA JULES /Age/Sex: 1980 - 41 - F Unit#: [id number] Location/Status: SPDIMAM/REG CLI Mnemonic/Ordering Site: [facility] Ordering Physician: VIDAL GARY DO [facility] Screening Digital - 06/05/22 - 854 EXAM: [facility] Screening Digital EXAM DATE AND TIME: 06/05/2022 8:56 AM HISTORY: Screening. Baseline exam. Maternal grandmother had breast carcinoma. COMPARISON: No comparison imaging. TECHNIQUE: CC and MLO views of both breasts were obtained using full field digital mammography. Bilateral digital breast tomosynthesis was performed in the MLO projection. Computer aided detection with [employer] 7.2-H and [employer] 3D 3.1 was employed. TISSUE DENSITY: b. [...] Routine screening mammogram BILATERAL in 1 year. 19663, 60615 3341F, 7025F Dictating Physician: KIYA MYLES MD Electronically Signed by: KIYA MYLES MD Dic Date/Time: 06/05/22 1126 Sign date/Time: 06/05/22 1127 Procedure Note Kiya Myles MD - 05/04/2023 [facility] Diagnostic Imaging Department [address] [place] [id number] Patient: LUIS REDDPAULAO.B./Age/Sex: 1980 - 41 - F Unit#: [id number] Location/Status: [facility] CLI Mnemonic/Ordering Site: [facility] Ordering Physician: VIDAL GARY DO [facility] Screening Digital - 06/05/22 - 854 EXAM: [facility] Screening Digital EXAM DATE AND TIME: 06/05/2022 8:56 AM HISTORY: Screening. Baseline exam. Maternal grandmother had breastcarcinoma. COMPARISON: No comparison imaging. TECHNIQUE: CC and MLO views of both breasts were obtained using fullfield digital mammography. Bilateral digital breast tomosynthesis was performedin the MLO projection. Computer aided detection with [employer] 7.2-H [employer] 3D 3.1 was employed. TISSUE DENSITY: b. [...] Routine screening mammogram BILATERAL in 1 year. 66945, 96876 3341F, 7025F Dictating Physician: KIYA MYLES MD Electronically Signed by: KIYA MYLES MD Dic Date/Time: 06/05/221125 Sign date/Time: 06/05/22 112 Vidal Gary DO IMG BI PROCEDURES Final [...] Most Recently Relevant to Health Maintenance Insurance [facility] PL[facility] Care Teams Premium Cancellation Clerk Relationship Specialty Start Date End Date Janet Harding MD [address] [place], [place] PCP - General Internal Medicine 08/04/24
[2024-12-05 15:56] LABS: Hematocrit 38.6 % (37.0-47.0); Hemoglobin 13.2 g/dl (12.0-16.0); Imm Gran Abs Auto 0.02 X10*3/uL (0.00-0.03); Imm Gran Pct Auto 0.3 % (0.0-0.4); Lymphocytes Absolute Auto 1.8 X10*3/uL (1.2-4.9); MANUAL DIFF FLAG NO; Mean Corpuscular HGB Conc 34.2 g/dl (31.0-35.0); Mean Corpuscular Hemoglobin 26.7 pg (27.0-33.0); Mean Corpuscular Volume 78.0 fL (80.0-98.0); NRBC Abs Auto 0.000 X10*3/uL (0.0-0.012); NRBC Pct Auto 0.0 /100WBC (0.0-0.2); Platelet Count 405 X10*3/uL (160-400); Red Blood Count 4.95 X10*6/uL (4.20-5.50); White Blood Count 6.4 X10*3/uL (4.8-10.8)
[2024-12-05 16:02] LABS: INTERNATIONAL NORM RATIO 1.0 (0.9-1.1); Prothrombin Time 11.3 SEC (10.9-12.4)
[2024-12-05 16:50] VITALS: BP 127/66; PULSE 82; RESP 18; TEMP 36.8; O2SAT 97
[2024-12-05 17:29] LABS: Alanine Aminotransferase 22 U/L (0-31); Albumin Level 3.9 g/dL (3.5-5.0); Alkaline Phosphatase 100 U/L (39-117); Anion Gap 12 (12-20); Aspartate Amino Transferase 21 U/L (5-31); Blood Urea Nitrogen 10 mg/dL (9-16); Calcium 8.5 mg/dL (8.4-10.2); Carbon Dioxide 24 mmol/L (22-29); Chloride 106 mmol/L (96-108); Creatinine Clr Calc Pharmacy 125.0; Estimated Glomerular Filt Rate > 60; Lipase 21 U/L (8-78); Magnesium 2.1 mg/dL (1.6-2.6); Potassium 4.1 mmol/L (3.3-5.1); Sodium 138 mmol/L (135-145); Total Protein 7.1 g/dL (6.5-8.0)
[2024-12-05] MEDS: iohexoL 350 MG/ML 100 ML INFUS..BTL IV (18:45)
[2024-12-05 20:47] VITALS: BP 127/66; PULSE 82; RESP 18; TEMP 36.8; O2SAT 97
== END 2024-12-05 21:00 | disposition home or self-care (01) ==
PROVIDERS: Emergency Medicine; Registered Nurse Emergency; Emergency Provider Emergency Medicine; PCP Psychiatry & Neurology Psychiatry
DX: R11.2 Nausea with vomiting, unspecified (principal); R10.2 Pelvic and perineal pain; R10.11 Right upper quadrant pain; Z79.899 Other long term (current) drug therapy
CPT/HCPCS: 36415; 74177; 80053; 83690; 83735; 84702; 85025; 85610; 86140; 96374; 96375; 99283; 99285; J1171; J1790; Q9967

== ENCOUNTER → 2024-12-05 16:27 | Outpatient (BNV) | payer OTHER, SELFPAY | PROVIDERS: Emergency Provider Emergency Medicine; PCP Psychiatry & Neurology Psychiatry; Visit Provider Radiology Neuroradiology | DX: R10.11 Right upper quadrant pain (principal); K63.89 Other specified diseases of intestine; K43.5 Parastomal hernia without obstruction or gangrene; Z93.3 Colostomy status | CPT/HCPCS: 74177 ==

== ENCOUNTER 2024-12-07 15:39 | Inpatient (IN) | payer OTHER, SELFPAY ==
--- OUTSIDE RECORDS SUMMARY | 2024-01-02 10:45 | XMS_ITS | Encounter Summary ---
Author Organization [facility] Address [address] [place] [address] Care Team Providers Care Corporate Intern Name Role Phone Nori Posey MD Primary Care Provider [phone] Encounter Details Date Type Department Care Team (Late st Contact Info) Description 01/02/2024 10:45 AM EDT Hospital Encounter TH HISTORIC ENCOUNTERS [facility] ONLY Yossi Marina MD [address] [place] [phone] Social History Tobacco Use Types Packs/Day [...] home since Sunday. Still has a black [place] in visual field of L eye. 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 for a second opinion Today we placed a referral to neurology for a second opinion possible referral to functional neurology in 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 The majority of the actual vnzt-dd-wnhl visit was spent counseling the patient with respect to the current neurological picture. Yossi Marina MD documented in this encounter Plan of Treatment Upcoming Encounters Date Type Department Care Team (Late st Contact Info) Description 03/24/2025 11:30 AM EST [facility] [address] [place], [place] [phone] Janet Harding MD [address] [place], [place] 03/31/2025 11:00 AM EST Office Visit [facility] [place] - [place] [address] [facility] [address] [place] [phone] Rocío Watkins PA [address] [place] [phone] documented as of this encounter Visit Diagnoses Not on filedocumented in this encounter Care Teams Corporate Intern Relationship Specialty Start Date End Date Nori Posey MD PCP - General 01/30/23 04/22/24 documented as of this encounter
[2024-12-07 16:19] VITALS: BP 133/76; PULSE 89; RESP 18; TEMP 37.8; O2SAT 97; BMI 40.7
--- NOTE | 2024-12-07 16:26 | ED.GENADULT ---
HPI - General Adult General Chief complaint: Abdominal Pain Stated complaint: vomiting, abd pain Time Seen by Provider: 12/07/24 16:39 Source: patient Mode of arrival: ambulatory Limitations: no limitations History of Present Illness ED Provider: Dr. Saravia [facility] narrative: 44-year-old female history of colostomy, implanted in her bowel disease, colitis, gastroparesis, I cholecystectomy presented hospital today for evaluation epigastric and right upper quadrant pain. Patient was recently seen here on Sunday for nausea vomiting and she was diagnosed with colitis however patient did not want to be admitted therefore she went home. Patient stated since then she is unable to hold any food or liquid down. She has been having yellowish emesis. She stated the stool coming out of her ostomy bag appears to be bile like in nature. She does have history of cholecystectomy in the past for her gallbladder. Related Data Home Medications ?Medication ?Instructions ?Recorded ?Confirmed lamotrigine 200 mg tablet 200 mg PO DAILY 01/02/23 12/08/24 valacyclovir 500 mg tablet 500 mg PO DAILY 01/02/23 12/08/24 vortioxetine 20 mg tablet 20 mg PO DAILY 01/02/23 12/08/24 (Trintellix) hydroxyzine HCl 25 mg tablet 25 mg PO BEDTIME 01/08/24 12/08/24 lamotrigine 25 mg tablet 50 mg PO BEDTIME 01/08/24 12/08/24 bisacodyl 5 mg tablet,delayed 10 mg PO BEDTIME 07/25/24 12/08/24 release magnesium oxide 400 mg PO DAILY 07/25/24 12/08/24 mirabegron 50 mg tablet,extended 50 mg PO DAILY 07/25/24 12/08/24 release 24 hr (Myrbetriq) eszopiclone 3 mg tablet (Lunesta) 3 mg PO BEDTIME 08/06/24 12/08/24 clonazepam 1 mg disintegrating 1 mg PO TID 12/08/24 12/08/24 tablet pantoprazole 40 mg tablet,delayed 40 mg PO DAILY@0630 12/08/24 12/08/24 release Previous Rx's ?Medication ?Instructions ?Recorded cholecalciferol (vitamin D3) 125 125 mcg PO DAILY #90 caps 05/30/24 mcg (5,000 unit) capsule docusate sodium 100 mg capsule 100 mg PO BID #60 caps 08/20/24 (Colace) prucalopride 2 mg tablet 2 mg PO DAILY #30 tabs 10/31/24 (Motegrity) metoclopramide HCl 5 mg tablet 5 mg PO Q8H PRN nausea and 11/13/24 vomiting #20 tabs esomeprazole magnesium 40 mg 40 mg PO DAILY #90 caps 11/24/24 capsule,delayed release ondansetron 4 mg disintegrating 4 mg PO Q8H PRN nausea and 11/24/24 tablet vomiting #30 tabs sucralfate 1 gram tablet 1 g PO BID #60 tabs 11/24/24 nkbzwq-mwhwkigw-ixrguhe 1 cap PO QID #120 caps 11/25/24 12,000-38,000-60,000 unit capsule,delayed rel (Creon) Allergies Allergy/AdvReac Type Severity Reaction Status Date / Time propofol Allergy Intermediate Itching Verified 12/07/24 16:24 morphine Allergy Mild Itching Verified 12/07/24 16:24 Review of Systems Review of Systems: Pertinent review of systems as mentioned in HPI. All other system otherwise negative. [facility] Past Medical History [facility] Narrative: Medical history as mentioned in HPI Medical History Postprocedural seroma of skin and subcutaneous tissue following other procedure Colostomy in place Hx of flexible sigmoidoscopy Proctosigmoiditis Stricture of sigmoid colon Colon wall thickening Obesity, Class II, BMI 35-39.9 IBS (irritable bowel syndrome) History of colitis Gastric ulcer Interstitial cystitis Occipital neuralgia of right side History of suicidal ideation Anxiety Agoraphobia MDD (major depressive disorder) PTSD (post-traumatic stress disorder) Surgical History Hx of colonoscopy Hx of section H/O: hysterectomy Hx of cholecystectomy (~12/2022) Family History Family History Father Prostate cancer Maternal Uncle Colon cancer Maternal Grandmother Breast cancer Social History Social History Household Members: Spouse Housing: House Do you presently have visiting nurse or other home services: Yes (HOG DRIVER) Alcohol intake: never 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 Patient Tobacco Use Status: Never used Tobacco Substance Use Type: Marijuana service: No Physical Exam ED Exam Exam: General: Pleasant, no distress, interacting appropriately Head: Normacephalic, atraumatic ENT: oral mucosa moist, neck supple, no tracheal deviation Cardiovascular: regular rate, regular rhythm, no murmurs, rubbing, gallops Respiratory: CTAB, no wheeze, rales, rhonchi Gastrointestinal: Soft, non distended, epigastric tenderness and right upper quadrant tenderness on palpation Neurological: Awake and alert, no facial droop noted Skin: Warm and dry Psychiatric: Appropriate mood and thoughts Vital Signs: Vital Signs - 24 hr 12/07/24 16:19 12/07/24 17:41 Temperature 100.1 F 98.1 F Pulse Rate 89 77 Respiratory Rate 18 16 Blood Pressure 133/76 112/56 L Pulse Oximetry 97 97 Oxygen Delivery Method Room Air Room Air BMI result Body Mass Index 40.7 Course Course Course Narrative: RME: 44-year-old female complex medical history returns to the ED for thumb pain nausea and vomiting that is not improving. Patient was recently here in Sunday was offered admission but declined. Patient is not not able to tolerate food or liquids since leaving the ED past Sunday. Patient has colostomy bag. Patient states it is flowing properly. Labs ordered Medications Administered Generic Name Dose Route Start Last Admin Trade Name Freq PRN Reason Stop Dose Admin Bisacodyl 10 mg 12/08/24 21:00 12/08/24 22:01 Bisacodyl 5 Mg Tablet.Dr PO Not Given BEDTIME MARIAH Clonazepam 1 mg 12/08/24 15:00 12/09/24 09:06 Clonazepam 1 Mg Tablet PO Not Given TID MARIAH Enoxaparin Sodium 40 mg 12/08/24 09:00 12/09/24 09:06 Enoxaparin Sodium 40 Mg/0.4 Ml Syringe SUBCUT 40 mg Q24H MARIAH Administration Hydromorphone HCl 1 mg 12/07/24 22:13 12/09/24 09:39 Hydromorphone Hcl 1 Mg/Ml Syringe IVPUSH 1 mg Q4H PRN Administration Pain, Severe (Pain Scale 7-10) Protocol Hydroxyzine HCl 25 mg 12/08/24 21:00 12/08/24 22:02 Hydroxyzine Hcl 25 Mg Tablet PO Not Given BEDTIME MARIAH Lactated Ringer's 1,000 mls @ 100 mls/hr 12/08/24 08:15 12/09/24 09:42 Lr IVCONT 100 mls/hr .Q10H MARIAH Administration Valproic Acid 250 mg/ Dextrose 52.5 mls @ 52.5 mls/hr 12/08/24 17:00 12/09/24 05:57 IV Infused Q6H MARIAH Infusion Lamotrigine 50 mg 12/08/24 21:00 12/08/24 22:02 Lamotrigine 25 Mg Tablet PO Not Given BEDTIME MARIAH Lamotrigine 200 mg 12/09/24 09:00 12/09/24 09:07 Lamotrigine 100 Mg Tablet PO Not Given DAILY [facility] Lidocaine 1 patch 12/08/24 09:00 12/09/24 09:54 Lidocaine 4 % Patch Adh..Patch TRANSDERMA Not Given DAILY [facility] Protocol Magnesium Oxide 400 mg 12/09/24 09:00 12/09/24 09:07 Magnesium Oxide 400 Mg Tablet PO Not Given DAILY [facility] Metoclopramide HCl 10 mg 12/08/24 06:15 12/09/24 09:06 Metoclopramide Hcl 10 Mg/2 Ml Vial IVPUSH 10 mg QID MARIAH Administration Mirabegron 50 mg 12/09/24 09:00 12/09/24 09:07 Mirabegron 50 Mg Tab.Er.24h PO Not Given DAILY [facility] Ondansetron HCl 4 mg 12/08/24 08:04 12/09/24 08:57 Ondansetron Hcl 4 Mg/2 Ml Vial IVPUSH 4 mg Q4H PRN Administration Nausea and Vomiting Pantoprazole Sodium 40 mg 12/08/24 06:30 12/09/24 05:57 Pantoprazole Sodium 40 Mg/10 Ml Vial IVPUSH 40 mg BID@0630,1630 MARIAH Administration Sodium Chloride 3 ml 12/08/24 00:00 12/09/24 09:01 0.9 % Sodium Chloride Flush 3 Ml Syringe IVFLUSH 3 ml QSHIFT MARIAH Administration Sucralfate 1 gm 12/08/24 21:00 12/09/24 09:07 Sucralfate 1 Gm Tablet PO Not Given BID [facility] Valacyclovir HCl 500 mg 12/09/24 09:00 12/09/24 09:07 Valacyclovir Hcl 500 Mg Tablet PO Not Given DAILY MARIAH Vortioxetine 20 mg 12/09/24 09:00 12/09/24 09:07 Vortioxetine Hydrobromide 20 Mg Tablet PO Not Given DAILY MARIAH Discontinued Medications Generic Name Dose Route Start Last Admin Trade Name Corky PRN Reason Stop Dose Admin Al Hydroxide/Mg Hydroxide 30 ml 12/07/24 21:00 12/07/24 21:13 Magnesium Hydrox/Alum Hydrox 30 Ml Oral.Susp PO 12/07/24 21:01 30 ml ONCE ONE Administration Diazepam 2.5 mg 12/07/24 22:13 12/07/24 22:29 Diazepam 10 Mg/2 Ml Cartridge IVPUSH 12/07/24 22:14 2.5 mg STAT STA Administration Famotidine 20 mg 12/07/24 21:00 12/07/24 21:13 Famotidine/Pf 20 Mg/2 Ml Vial IVPUSH 12/07/24 21:01 20 mg ONCE ONE Administration Hydromorphone HCl 0.5 mg 12/07/24 18:05 12/07/24 18:10 Hydromorphone Hcl 0.5 Mg/0.5 Ml Syringe IVPUSH 12/07/24 18:06 0.5 mg ONCE ONE Administration Protocol Sodium Chloride 1,000 mls @ 999 mls/hr 12/07/24 17:30 12/07/24 18:30 Ns IV 12/07/24 18:30 Infused .Q1H1M MARIAH Infusion Lactated Ringer's 1,000 mls @ 100 mls/hr 12/07/24 22:00 12/08/24 09:15 Lr IVCONT 12/08/24 07:59 Infused .Q10H MARIAH Infusion Lamotrigine 200 mg 12/08/24 13:11 12/08/24 14:31 Lamotrigine 100 Mg Tablet PO 12/08/24 13:12 Not Given ONCE ONE Lidocaine HCl 15 ml 12/07/24 21:00 12/07/24 21:13 Lidocaine Hcl Viscous 2 % 15 Ml Solution MUCOUS MEM 12/07/24 21:01 15 ml ONCE ONE Administration Metoclopramide HCl 5 mg 12/07/24 17:19 12/07/24 17:26 Metoclopramide Hcl 10 Mg/2 Ml Vial IV 12/07/24 17:20 5 mg ONCE ONE Administration Metoclopramide HCl 10 mg 12/07/24 22:14 12/07/24 22:30 Metoclopramide Hcl 10 Mg/2 Ml Vial IVPUSH 12/07/24 22:15 10 mg QID STA Administration Ondansetron HCl 4 mg 12/07/24 19:39 12/07/24 19:44 Ondansetron Hcl 4 Mg/2 Ml Vial IVPUSH 12/07/24 19:40 4 mg ONCE ONE Administration Medical Decision Making Medical Decision Making [facility] Narrative: This is a 44-year-old female recently diagnosed with colitis, history of gastroparesis and cholecystectomy, colectomy with colostomy bag presented hospital today for persistent nausea and vomiting. We will obtain abdominal lab work for the patient at this time. I did consider obtain a CT imaging however patient has had recent CT imaging performed 2 days ago. We will try to attempt control patient's nausea and vomiting. Patient's CT imaging 2 days ago show new wall thickening of the large intestine concern for colitis. No SBO, she does have signs of mesenteric fat containing hernia of the stoma. IV Reglan will be initiated for the patient IV fluid will be given to patient as well. Patient is unable to tolerate p.o. intake. IV Zofran given. Patient did attempt crackers and gabriela bianca however stated that she developed epigastric pain. We will plan to give patient has some viscous lidocaine and Maalox for her symptoms and we will plan to give patient a dose IV Pepcid. This may be secondary to gastritis given her presentation. Given the fact that patient is unable to tolerate p.o. intake after multiple antiemetics. We will plan to admit patient to the hospital for intractable nausea and vomiting. I did review patient's gastric emptying study on 11/12/2024 which does show delay of gastric emptying. Consistent with her gastroparesis. Perhaps the patient may benefit from a GI evaluation. Differential Diagnosis Differential Diagnoses: The differential diagnosis associated with the presentation includes Colitis, gastritis, gastroenteritis, gastroparesis, nausea and vomiting Lab Data [facility] Lab Attestation statement: I reviewed the patient's lab results. 12/08/24 06:08 12/09/24 08:46 Labs: Lab Results 12/07/24 12/07/24 Range/Units 17:19 21:06 WBC 8.0 (4.8-10.8) X10*3/uL RBC 5.06 (4.20-5.50) X10*6/uL Hgb 13.5 (12.0-16.0) g/dl Hct 39.5 (37.0-47.0) % MCV 78.1 L (80.0-98.0) fL MCH 26.7 L (27.0-33.0) pg MCHC 34.2 (31.0-35.0) g/dl RDW 14.2 (11.0-16.0) % Plt Count 442 H (160-400) X10*3/uL MPV 9.4 (9.4-12.3) fL Immature Gran % (Auto) 0.2 (0.0-0.4) % Neut % (Auto) 67.2 (45-73) % Lymph % (Auto) 27.0 (20-40) % Dickson % (Auto) 4.7 (2-11) % Eos % (Auto) 0.5 (0-4) % Baso % (Auto) 0.4 (0-2) % Lymph # (Auto) 2.2 (1.2-4.9) X10*3/uL Dickson # (Auto) 0.4 (0.1-1.2) X10*3/uL Eos # (Auto) 0.0 (0.0-0.4) X10*3/uL Baso # (Auto) 0.0 (0.0-0.2) X10*3/uL Abs Immat Gran (auto) 0.02 (0.00-0.03) X10*3/uL Absolute Neuts (auto) 5.4 (2.0-8.3) x10*3/uL Absolute Nucleated RBC 0.000 (0.0-0.012) X10*3/uL Nucleated RBC % (auto) 0.0 (0.0-0.2) /100WBC Sodium 139 (135-145) mmol/L Potassium 4.1 (3.3-5.1) mmol/L Chloride 104 (96-108) mmol/L Carbon Dioxide 24 (22-29) mmol/L Anion Gap 15 (12-20) BUN 11 (9-16) mg/dL Creatinine 0.87 (0.5-1.4) mg/dL Estim Creat Clear Calc 96.3 Estimated GFR > 60 Random Glucose 100 (60-115) mg/dL Calcium 9.3 D (8.4-10.2) mg/dL Total Bilirubin 0.3 (0.0-1.0) mg/dL AST 28 (5-31) U/L ALT 28 (0-31) U/L Alkaline Phosphatase 124 H (39-117) U/L Total Protein 7.9 (6.5-8.0) g/dL Albumin 4.5 (3.5-5.0) g/dL Lipase 16 (8-78) U/L Beta HCG, Quant < 2 mIU/mL Urine Color Yellow Urine Appearance Clear Urine pH 5.5 (5.0-9.0) Ur Specific Lagrange 1.025 (1.005-1.025) Urine Protein Negative (Neg-Trace) mg/dL Urine Glucose (UA) Negative (Negative) mg/dL Urine Ketones 40 (Negative) mg/dL Urine Blood Negative (Negative) Urine Nitrite Negative (Negative) Ur Leukocyte Esterase Negative (Negative) Independent Interpretation I performed an independent interpretation of an: CT Scan Radiology Impression Discussion of test interpretation with radiology: I have reviewed the radiologist's reading. Chronic Conditions Gastroparesis, colitis Discharge Plan Discharge Clinical Impression: Colitis Nausea & vomiting Qualifiers: Vomiting type: unspecified Qualified Code(s): R11.2 - Nausea with vomiting, unspecified Patient Disposition: Admitted As Inpatient Interventions: Admission Worksheet (ED) Last Done: 12/07/24 23:58 Discharge Date/Time: 12/08/24 00:41
--- OUTSIDE RECORDS SUMMARY | 2024-12-07 17:25 | XMS_ITS | Clinical Summary ---
Author Organization [facility] Address [address] [place] [address] Phone Care Team Providers Care Hairmasters Manager Name Role Phone Janet Harding MD Primary Care Provider [phone] Allergies Active Allergy Reactions Criticality Noted Date [...] Noted Date Diagnosed Date Colostomy in place ([facility] V24, [facility] V28) Class 1 obesity 11/24/2024 Internal hemorrhoid [...] 2:40 PM EDT Consult Gastroenterology - [address] [address] Julian Sanchez MD Slow transit constipation (Primary Dx); Gastroparesis 2024 Telephone Internal Medicine - [facility] [address] [place] [address] Janet Harding MD 10/29/2024 8:36 AM EDT - 10/29/2024 11:59 PM EDT Hospital Encounter [facility] MRI [address] [place] [address] Gait abnormality; Migraine without status migrainosus, not intractable, unspecified migraine type Discharge Disposition: Home or Self Care 10/29/2024 8:29 AM EDT - 10/29/2024 11:59 PM EDT Hospital Encounter [facility] MRI [address] [place] [address] Gait abnormality; Migraine without status migrainosus, not intractable, unspecified migraine type Discharge Disposition: Home or Self Care 09/26/2024 12:30 PM EDT Office Visit [facility] [address] [address] Yossi Marina MD Gait abnormality (Primary Dx); Migraine without status migrainosus, not intractable, unspecified migraine type; Seizure (CMS/HCC V24, [facility] V28); Seizure-like activity (CMS/HCC V24, [facility] V28) 09/19/2024 2:55 PM EDT - 09/19/2024 7:09 PM EDT Emergency [facility] Emergency [address] [place] [address] Discharge Disposition: Home or Self Care 09/19/[address] [phone] Roxanne Gomez MA from Last 3 Months Immunizations Name Administration Dates Next Due Tdap Tetanus diptheria acell ular pertussis (Boostrix; Adacel) 7yo and older 05/04/2023 Surgical History Surgery Date Site/Laterality Comments CHOLECYSTECTOMY PROCEDURE: [place] LAPAROSCOPY SURG CHOLECYSTECTOMY HYSTERECTOMY 2015 PROCEDURE: HISTORICAL [...] stress disorder) Suicide and self-inflicted i njury ([facility] V24, [facility] V28) DX:Suicide and self-inflict ed injury (HCC) Major depression, chronic DX:Percy or depression, chronic [...] DX:Guaiac positive stools Hematuria DX:Hematuria Uterine cancer ([facility] V24, [facility] V28) 2014 DX:Uterine cancer ([facility]) Interstitial cystitis DX:Interst itial cystitis Herpes genitalis [...] AM EST Office Visit Internal Medicine - [facility] [address] [place] [address] Janet Harding MD [address] [place], [place] 03/31/2025 11:00 AM EST Office Visit [facility] [address] [place] [address] Rocío Watkins PA [address] [place] [address] Health Maintenance Due Date Last [...] CT REPORT 10/07/2024 DEPRESSION SCREENING Routine 05/04/2023 TAY SCREENING DIGITAL [...] Signed Date: 10/29/2024 15:57 ET Workstation ID: [id number] Transcribed By: Self Edit Transcribed Date: 10/29/2024 [...] Signed Date: 10/29/2024 15:57 ET Workstation ID: [id number] Transcribed By: Self Edit Transcribed Date: 10/29/2024 [...] Signed Date: 10/29/2024 16:00 ET Workstation ID: [id number] Transcribed By: Self Edit Transcribed Date: 10/29/2024 [...] Signed Date: 10/29/2024 16:00 ET Workstation ID: [id number] Transcribed By: Self Edit Transcribed Date: 10/29/2024 15:57 ET Yossi Marina MD IMG MRI PROCEDURES Final Result * External CT Report (10/07/2024) Only the most recent of2 resultswithin the time period is included. Anatomical Region Laterality Modality Computed Tomogra phy Provider [facility] IMG CT PROCEDURES Final Result * Depression Screening (05/04/2023) Depression Screening Abstracted Historical Provider HEALTH MAINTENANCE Final Result * TAY SCREENING DIGITAL (06/05/2022 11:27 AM EST) Anatomical Region Laterality Modality Mammography 06/05/2022 8:32 AM EST Narrative 06/05/2022 11:27 AM EST [facility] Diagnostic Imaging Department [address] [place], [place] [address] Patient: PAULA JULES /Age/Sex: 1980 - 41 - F Unit#: [id number] Location/Status: SPDIMAM/REG CLI Mnemonic/Ordering Site: [facility] Ordering Physician: VIDAL GARY DO Tay [...] the MLO projection. Computer aided detection with [employer] and [employer] 3D 3.1 was employed. TISSUE DENSITY: b. [...] Routine screening mammogram BILATERAL in 1 year. [id number], 60339 3341F, 7025F Dictating Physician: KIYA MYLES MD Electronically Signed by: KIYA MYLES MD Dic Date/Time: 06/05/22 1126 Sign date/Time: 06/05/22 1127 Procedure Note Kiya Myles MD - 05/04/2023 [facility] Diagnostic Imaging Department [address] [place] [address] Patient: PAULA JULES /Age/Sex: 1980 - 41 - F Unit#: [id number] Location/Status: SPDIMAM/REG CLI Mnemonic/Ordering Site: [facility] Ordering Physician: VIDAL GARY DO Tay Screening Digital - 06/05/22 - 854 EXAM: [facility] Screening Digital EXAM DATE AND TIME: 06/05/2022 8:56 AM HISTORY: Screening. Baseline exam. Maternal grandmother had breastcarcinoma. COMPARISON: No comparison imaging. TECHNIQUE: CC and MLO views of both breasts were obtained using fullfield digital mammography. Bilateral digital breast tomosynthesis was performedin the MLO projection. Computer aided detection with [employer] and[employer] 3D 3.1 was employed. TISSUE DENSITY: b. [...] Routine screening mammogram BILATERAL in 1 year. [id number], 17866 3341F, 7025F Dictating Physician: KIYA MYLES MD Electronically Signed by: KIYA MYLES MD Dic Date/Time: 06/05/22 112 Sign date/Time: 06/05/22 112 Vidal Gary DO [facility] BI PROCEDURES Final Result * Hepatitis C Screening (03/06/2022) Hepatitis C Screening Abstracted us Historical Provider HEALTH MAINTENANCE [...] Most Recently Relevant to Health Maintenance Insurance [facility] [employer] Care Teams Hairmasters Manager Relationship Specialty Start Date End Date Janet Harding MD [address] [place] [address] PCP - General Internal Medicine 08/04/24
--- OUTSIDE RECORDS SUMMARY | 2024-12-07 17:25 | XMS_ITS | Encounter Summary ---
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 Pt states she doesn't know how to go about this. She states her MOTOR VEHICLE LICENSE CLERK told her she needs something from the [...] to speak to nurse in regard to MOTOR VEHICLE LICENSE CLERK services. She states shewas advised to call [...] Office Visit Internal Medicine - [facility] [address] [place], [place] [phone] Janet Harding MD [address] [place], [place] 03/31/2025 11:00 AM EST Office Visit [facility] [address] [facility] [address] [place] [id number] Rocío Watkins PA [facility] [place] [address] documented as of this encounter Visit Diagnoses Not on filedocumented in this encounter Care Teams Legal Manager Relationship Specialty Start Date End Date Janet Harding MD [address] [place] [address] PCP - General Internal Medicine 08/04/24 documented as of this encounter
--- OUTSIDE RECORDS SUMMARY | 2024-12-07 17:25 | XMS_ITS | Clinical Summary ---
Author Organization [id number] [facility] Address [address] [place] [address] Care Team Providers Care Lead Generator Name Role Phone Nori Posey MD Primary Care Provider [phone] Allergies Active Allergy Reactions Criticality Noted Date Comments [place] 08/30/2023 Medications Medication Sig Dispensed Refills Start [...] age to complete this topic Care Teams Lead Generator Relationship Specialty Start Date End Date oNri Posey MD [address] [place] [id number] PCP - General Internal Medicine 08/01/23
[2024-12-07 17:28] LABS: MANUAL DIFF FLAG NO
[2024-12-07 17:30] LABS: Hematocrit 39.5 % (37.0-47.0); Hemoglobin 13.5 g/dl (12.0-16.0); Imm Gran Abs Auto 0.02 X10*3/uL (0.00-0.03); Imm Gran Pct Auto 0.2 % (0.0-0.4); Lymphocytes Absolute Auto 2.2 X10*3/uL (1.2-4.9); Mean Corpuscular HGB Conc 34.2 g/dl (31.0-35.0); Mean Corpuscular Hemoglobin 26.7 pg (27.0-33.0); Mean Corpuscular Volume 78.1 fL (80.0-98.0); NRBC Abs Auto 0.000 X10*3/uL (0.0-0.012); NRBC Pct Auto 0.0 /100WBC (0.0-0.2); Platelet Count 442 X10*3/uL (160-400); Red Blood Count 5.06 X10*6/uL (4.20-5.50); White Blood Count 8.0 X10*3/uL (4.8-10.8)
[2024-12-07 17:41] VITALS: BP 112/56; PULSE 77; RESP 16; TEMP 36.7; O2SAT 97
[2024-12-07 17:55] LABS: Alanine Aminotransferase 28 U/L (0-31); Albumin Level 4.5 g/dL (3.5-5.0); Alkaline Phosphatase 124 U/L (39-117); Anion Gap 15 (12-20); Aspartate Amino Transferase 28 U/L (5-31); Blood Urea Nitrogen 11 mg/dL (9-16); Calcium 9.3 mg/dL (8.4-10.2); Carbon Dioxide 24 mmol/L (22-29); Chloride 104 mmol/L (96-108); Creatinine Clr Calc Pharmacy 96.3; Estimated Glomerular Filt Rate > 60; Lipase 16 U/L (8-78); Potassium 4.1 mmol/L (3.3-5.1); Sodium 139 mmol/L (135-145); Total Protein 7.9 g/dL (6.5-8.0)
--- NOTE | 2024-12-07 19:21 | PC.NURSE ---
this RN assumed care of this pt @1900, pt resting quietely in hospital stretcher, educated on need of urine sample, offered gingerale and crackers to attempt PO trial, pt refused at this time .
[2024-12-07] MEDS: Lidocaine HCl Viscous 2 % 15 ML SOLUTION MUCOUS MEM (21:13)
[2024-12-07] MEDS: Magnesium Hydrox/Alum Hydrox 30 ML ORAL.SUSP PO (21:13)
[2024-12-07 21:15] LABS: Appearance Urine Clear; Glucose Urine UA Negative (Negative); PH 5.5 (5.0-9.0); Specific Gravity - Urine 1.025 (1.005-1.025)
--- NOTE | 2024-12-07 22:20 | PM.IMHP ---
History of Present Illness Date of Service: 12/07/24 Attending physician on admission: Jayden Solitario Chief Complaint: Nausea and vomiting Paula Simmons is a very pleasant with a past medical history significant for status post colostomy due to long history of severe diarrhea alternating with constipation, IBS, GERD, interstitial, seizures, depression/anxiety, occipital neuralgia and interstitial cystitis presents to the emergency department complaining of 5 days' history of nausea and vomiting associated with severe epigastric and right upper quadrant pain. The emesis is nonbloody and bilious. The pain is radiating to the right back. The stool material coming out her colostomy is liquids and drainage. She has been unable to tolerate any fluids or solids. She denied any acute urinary symptoms. She has a history of cholecystectomy. She recently visited [facility] for the same symptoms and underwent an abdominal pelvis CT scan that showed finding consistent with colitis however patient has not been having fever. On October 2024, she had a gastric emptying study that came back abnormal. There is no leukocytosis. Five days ago, she was evaluated at [facility] ED for the same symptoms, recieved treatment with Dilaudid, Haldol, IV fluids and Pepcid. She was sent home after tolerating p.o.. She did not report any acute cardiopulmonary symptoms. She mentioned having chronic numbness to all extremities. Also, she has been experiencing her loss without any specific explanation. Paula is very frustrated as her medical issues and symptoms did not get better. She has been seeing experts and unable to tell her what exactly is going on why she does not get better. Three years ago she was not very active woman. She used to participate in marathons and go to the gym. She was referred to see specialist at [facility] but they do not accept her medical insurance. Patient has a history of precancerous uterus lesion status post hysterectomy. In the ED, she was found to have stable vital signs. Blood workup showed WBC 8.0, hemoglobin 13.5 and platelets 442. Differential is normal. There are no electrolyte imbalances. BUN is 11 and creatinine 0.87. Urinalysis is normal. ED tx: Reglan 5 mg IV, Dilaudid 0.5 mg IV, Zofran 4 mg IV, Maalox 30 mL p.o., Pepcid 20 mg IV Review of Systems Review of Systems: All 12 systems were reviewed and normal except as noted in HPI. [facility] Medical History (Updated 12/13/24 @ 00:02 by Background Daemon) Seizures Hx of Postprocedural seroma of skin and subcutaneous tissue following other procedure Colostomy in place Hx of flexible sigmoidoscopy Proctosigmoiditis Stricture of sigmoid colon Colon wall thickening Obesity, Class II, BMI 35-39.9 IBS (irritable bowel syndrome) History of colitis Gastric ulcer Interstitial cystitis Occipital neuralgia of right side History of suicidal ideation Anxiety Agoraphobia MDD (major depressive disorder) PTSD (post-traumatic stress disorder) Family History Father Prostate cancer Maternal Uncle Colon cancer Maternal Grandmother Breast cancer Surgical History (Updated 12/13/24 @ 00:02 by Background Daemon) History of tonsillectomy and adenoidectomy Hx of appendectomy H/O endoscopy Hx of colonoscopy Hx of section H/O: hysterectomy Hx of cholecystectomy (~12/2022) Social History Household Members: Spouse Housing: House Do you presently have visiting nurse or other home services: Yes ([employer]) Alcohol intake: never 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 Patient Tobacco Use Status: Former Tobacco user Substance Use Type: Marijuana service: No Meds Allergies Allergy/AdvReac Type Severity Reaction Status Date / Time propofol Allergy Intermediate Itching Verified 12/07/24 16:24 morphine Allergy Mild Itching Verified 12/07/24 16:24 Active Medications: Current Medications Enoxaparin Sodium (Enoxaparin Sodium 40 Mg/0.4 Ml Syringe) 40 mg SUBCUT Q24H [facility] Hydromorphone HCl (Hydromorphone Hcl 1 Mg/Ml Syringe) 1 mg IVPUSH Q4H PRN; Protocol PRN Reason: Pain, Severe (Pain Scale 7-10) Lactated Ringer's (Lr) 1,000 mls @ 100 mls/hr IVCONT .Q10H [facility] Stop: 12/08/24 07:59 Sodium Chloride (0.9 % Sodium Chloride Flush 3 Ml Syringe) 3 ml IVFLUSH QSHIFT [facility] Home Medications ?Medication ?Instructions ?Recorded ?Confirmed ?Last Taken ?Type lamotrigine 200 mg tablet 200 mg PO DAILY 01/02/23 12/08/24 12/06/24 History valacyclovir 500 mg tablet 500 mg PO DAILY 01/02/23 12/08/24 12/06/24 History vortioxetine 20 mg tablet 20 mg PO DAILY 01/02/23 12/08/24 12/06/24 History (Trintellix) hydroxyzine HCl 25 mg tablet 25 mg PO BEDTIME 01/08/24 12/08/24 12/06/24 History lamotrigine 25 mg tablet 50 mg PO BEDTIME 01/08/24 12/08/24 12/06/24 History bisacodyl 5 mg tablet,delayed 10 mg PO BEDTIME 07/25/24 12/08/24 12/06/24 History release magnesium oxide 400 mg PO DAILY 07/25/24 12/08/24 12/06/24 History mirabegron 50 mg tablet,extended 50 mg PO DAILY 07/25/24 12/08/24 12/06/24 History release 24 hr (Myrbetriq) eszopiclone 3 mg tablet (Lunesta) 3 mg PO BEDTIME 08/06/24 12/08/24 12/06/24 History clonazepam 1 mg disintegrating 1 mg PO TID 12/08/24 12/08/24 12/06/24 History tablet pantoprazole 40 mg tablet,delayed 40 mg PO DAILY@0630 12/08/24 12/08/24 12/06/24 History release Physical Exam Vital Signs and Narrative: Vital Signs: Last Vital Signs Temp 98.1 F 12/07/24 17:41 Pulse 77 12/07/24 17:41 Resp 16 12/07/24 17:41 BP 112/56 L 12/07/24 17:41 Pulse Ox 97 12/07/24 17:41 O2 Del Method Room Air 12/07/24 17:41 BMI result Body Mass Index 40.7 Constitutional - Awake and Alert, No apparent distress HEENT - PER, EOMI Heart - S1S2, RRR, No edema Lungs- Normal lung expansion, Normal respiratory effort, No respiratory distress, CTA bilaterally Abdomen - Nondistended. Colostomy bag in place. (+) BS. Right upper quadrant/epigastric tenderness to palpation with guarding. No rebound. Extremities - no calf tenderness bilaterally, no swelling Musculoskeletal - Normal inspection, normal ROM Skin - Warm/Dry Neurological - Alert & oriented x3. Moving all extremities spontaneously. Normal speech. Psychological - Depressed affect Results Labs 12/12/24 05:13 12/12/24 05:13 Labs: Laboratory Results - last 24 hr 12/07/24 12/07/24 17:19 21:06 MCV 78.1 L MCH 26.7 L MCHC 34.2 RDW 14.2 Plt Count 442 H MPV 9.4 Immature Gran % (Auto) 0.2 Neut % (Auto) 67.2 Lymph % (Auto) 27.0 [place] % (Auto) 4.7 Eos % (Auto) 0.5 Baso % (Auto) 0.4 Lymph # (Auto) 2.2 [place] # (Auto) 0.4 Eos # (Auto) 0.0 Baso # (Auto) 0.0 Abs Immat Gran (auto) 0.02 Absolute Neuts (auto) 5.4 Absolute Nucleated RBC 0.000 Nucleated RBC % (auto) 0.0 Anion Gap 15 Estim Creat Clear Calc 96.3 Estimated GFR > 60 Random Glucose 100 Calcium 9.3 D Total Bilirubin 0.3 AST 28 ALT 28 Alkaline Phosphatase 124 H Total Protein 7.9 Albumin 4.5 Lipase 16 Beta HCG, Quant < 2 Urine Color Yellow Urine Appearance Clear Urine pH 5.5 Ur Specific [place] 1.025 Urine Protein Negative Urine Glucose (UA) Negative Urine Ketones 40 Urine Blood Negative Urine Nitrite Negative Ur Leukocyte Esterase Negative Assessment and Plan (1) Nausea & vomiting: Qualifiers: Vomiting type: unspecified Qualified Code(s): R11.2 - Nausea with vomiting, unspecified Status: Acute (2) Gastroparesis: Status: Acute Plan Paula Simmons is a 44 y/o woman with a PMHx significant for s/p colostomy by Dr. Allen due to long history of severe diarrhea alternating with constipation/dysmotility, chronic abdominal pain, cholecystectomy, IBS, GERD on esomeprazole and famotidine, interstitial, seizures, depression/anxiety, occipital neuralgia and interstitial cystitis presents with: Right upper abdominal/epigastric pain associated with nausea and vomiting; suspecting secondary to gastroparesis; possible associated acute gastritis/esophagitis. Strict NPO. Start IV fluids. Reglan 10 mg IV q.i.d.. Protonix 40 mg IV b.i.d.. Dilaudid IV as needed. Gastroenterology consult. Abnormal abdominal pelvis CT scan. New wall thickening of the large instestine is nonspeciic and concerning for colitis, including transverse colon. No leukocytosis (normal differential). Will obtain CRP and ESR. Hold antibiotics for now. Seizures. Currently unable to swallow her home meds. She is on lamictal. Will give Valium and start lamictal when able. Insomnia. Uses eszopiclone but not formulary. will bring this med. Depression/anxiety/PTSD/body dysmorphia/agoraphobia. Continue clonazepam 1 mg PO TID in hydroxyzine when able. Currenlty strict NPO, valium IV given instead. Chronic constipation. Continue Colace and bisacodyl when able. Nasal allergies. Continue fluticasone as needed. Hx of hysterectomy due to precancerous lesion. No need to keep checking tests. Code status: Full. DVT prophylaxis: Lovenox. Patient will need hospitalization for acute GI symptoms including abdominal pain, nausea and vomiting likely due to gastroparesis management with IV fluids, IV antiemetic therapy, IV anti-reflux therapy and evaluation by subspecialty. Quality Stroke Does the patient have a stroke diagnosis?: No VTE Prior VTE?: No VTE Risk Level:: Medical - moderate - high VTE Device Contraindication: Treatment Not Indicated VTE Drug Contraindication: N/A - Med Ordered
[2024-12-07] MEDS: Lactated Ringers 1,000 ML 100 ML IVCONT (22:21)
[2024-12-07] MEDS: diazePAM 10 MG/2 ML CARTRIDGE 2.5 MG IVPUSH (22:29)
[2024-12-08] VITALS (7 sets, daily range): BP systolic 113–141; BP diastolic 53–68; PULSE 70–85; RESP 15–18; TEMP 35.9–37.1; O2SAT 94–95; BMI 41.4
--- NOTE | 2024-12-08 00:20 | PC.NURSE ---
approximately 300 mL infused
[2024-12-08 06:36] LABS: MANUAL DIFF FLAG NO
[2024-12-08 07:03] LABS: Hematocrit 36.6 % (37.0-47.0); Hemoglobin 11.9 g/dl (12.0-16.0); Imm Gran Abs Auto 0.03 X10*3/uL (0.00-0.03); Imm Gran Pct Auto 0.5 % (0.0-0.4); Lymphocytes Absolute Auto 3.0 X10*3/uL (1.2-4.9); Mean Corpuscular HGB Conc 32.5 g/dl (31.0-35.0); Mean Corpuscular Hemoglobin 26.4 pg (27.0-33.0); Mean Corpuscular Volume 81.2 fL (80.0-98.0); NRBC Abs Auto 0.000 X10*3/uL (0.0-0.012); NRBC Pct Auto 0.0 /100WBC (0.0-0.2); Platelet Count 365 X10*3/uL (160-400); Red Blood Count 4.51 X10*6/uL (4.20-5.50); White Blood Count 6.5 X10*3/uL (4.8-10.8)
[2024-12-08 07:13] LABS: Anion Gap 12 (12-20); Blood Urea Nitrogen 11 mg/dL (9-16); Calcium 8.4 mg/dL (8.4-10.2); Carbon Dioxide 25 mmol/L (22-29); Chloride 108 mmol/L (96-108); Creatinine Clr Calc Pharmacy 120.8; Estimated Glomerular Filt Rate > 60; Potassium 3.7 mmol/L (3.3-5.1); Sodium 141 mmol/L (135-145)
--- NOTE | 2024-12-08 07:51 | P.PNIM_ITS ---
Subjective Subjective Date of Service: 12/08/24 Interval History: colitis Review of Systems abd pain somewhat improving has nausea Review of Systems: Yes all other systems are reviewed and are negative Physical Exam 2 Exam: Exam: Appearance: Alert.? Oriented X3.? cvs: rrr, [id number] . res: clear to auscultation ,no rhonchii or wheezing abd: no rebound or guarding ,has epigastric discomfort,colostomy bag at place, bs present. ext pulses present , no cyanosis . neuro: axo3 , nonfocal. Vital Signs: Vital Signs: Last Vital Signs Temp 98 F 12/08/24 06:46 Pulse 71 12/08/24 06:46 Resp 16 12/08/24 06:46 BP 115/68 12/08/24 06:46 Pulse Ox 95 12/08/24 06:46 O2 Del Method Room Air 12/08/24 06:46 BMI result Body Mass Index 41.4 Objective Data Active Medications Enoxaparin Sodium (Enoxaparin Sodium 40 Mg/0.4 Ml Syringe) 40 mg SUBCUT Q24H [facility] Hydromorphone HCl (Hydromorphone Hcl 1 Mg/Ml Syringe) 1 mg IVPUSH Q4H PRN; Protocol PRN Reason: Pain, Severe (Pain Scale 7-10) Last Admin: 12/07/24 22:29 Dose: 1 mg Documented By: NERISSA Lactated Ringer's (Lr) 1,000 mls @ 100 mls/hr IVCONT .Q10H [facility] Stop: 12/08/24 07:59 Last Admin: 12/07/24 22:21 Dose: 100 mls/hr Documented By: NERISSA Metoclopramide HCl (Metoclopramide Hcl 10 Mg/2 Ml Vial) 10 mg IVPUSH QID [facility] Last Admin: 12/08/24 06:29 Dose: 10 mg Documented By: SARAH Pantoprazole Sodium (Pantoprazole Sodium 40 Mg/10 Ml Vial) 40 mg IVPUSH BID@0630,1630 [facility] Last Admin: 12/08/24 05:37 Dose: 40 mg Documented By: SARAH Sodium Chloride (0.9 % Sodium Chloride Flush 3 Ml Syringe) 3 ml IVFLUSH QSHIFT [facility] Last Admin: 12/08/24 01:04 Dose: Not Given Documented By: EMILIANA Non-Admin Reason: IV Running Labs 12/08/24 06:08 12/08/24 06:08 Labs: Laboratory Results - last 24 hr 12/07/24 12/07/24 12/08/24 17:19 21:06 06:08 MCV 78.1 L 81.2 MCH 26.7 L 26.4 L MCHC 34.2 32.5 RDW 14.2 14.3 Plt Count 442 H 365 MPV 9.4 9.9 Immature Gran % (Auto) 0.2 0.5 H Neut % (Auto) 67.2 45.0 Lymph % (Auto) 27.0 46.0 H [place] % (Auto) 4.7 6.6 Eos % (Auto) 0.5 1.4 Baso % (Auto) 0.4 0.5 Lymph # (Auto) 2.2 3.0 [place] # (Auto) 0.4 0.4 Eos # (Auto) 0.0 0.1 Baso # (Auto) 0.0 0.0 Abs Immat Gran (auto) 0.02 0.03 Absolute Neuts (auto) 5.4 2.9 Absolute Nucleated RBC 0.000 0.000 Nucleated RBC % (auto) 0.0 0.0 Anion Gap 15 12 Estim Creat Clear Calc 96.3 120.8 Estimated GFR > 60 > 60 Random Glucose 100 82 Calcium 9.3 D 8.4 D Phosphorus 2.7 Total Bilirubin 0.3 AST 28 ALT 28 Alkaline Phosphatase 124 H C-Reactive Protein 1.39 H Total Protein 7.9 Albumin 4.5 Lipase 16 Beta HCG, Quant < 2 Urine Color Yellow Urine Appearance Clear Urine pH 5.5 Ur Specific [place] 1.025 Urine Protein Negative Urine Glucose (UA) Negative Urine Ketones 40 Urine Blood Negative Urine Nitrite Negative Ur Leukocyte Esterase Negative Assessment and Plan (1) Nausea & vomiting: Status: Acute (2) Gastroparesis: Status: Acute (3) Colitis: Status: Acute Assessment and Plan: 44 y/o woman with a PMHx significant for s/p colostomy by Dr. Allen due to long history of severe diarrhea alternating with constipation/dysmotility, chronic abdominal pain, cholecystectomy, IBS, GERD on esomeprazole and famotidine, interstitial, seizures, depression/anxiety, occipital neuralgia and interstitial cystitis presents with: Right upper abdominal/epigastric pain associated with nausea and vomiting; suspecting secondary to gastroparesis; possible associated acute gastritis/esophagitis. continue Strict NPO,IV fluids,Reglan 10 mg IV q.i.d., Protonix 40 mg IV b.i.d., Dilaudid IV as needed. Gastroenterology consult. Abnormal abdominal pelvis CT scan. New wall thickening of the large instestine is nonspeciic and concerning for colitis, including transverse colon. No leukocytosis (normal differential). CRP 1.39and ESR 28. Hold antibiotics for now. Seizures. Currently unable to swallow her home meds. She is on lamictal. Insomnia. Uses eszopiclone but not formulary. will bring this med. Depression/anxiety/PTSD/body dysmorphia/agoraphobia. Continue clonazepam 1 mg PO TID in hydroxyzine when able. Chronic constipation. Continue Colace and bisacodyl when able. Nasal allergies. Continue fluticasone as needed. Hx of hysterectomy due to precancerous lesion. No need to keep checking tests. Code status: Full. DVT prophylaxis: Lovenox. ongoing need for hospitalization for acute GI symptoms including abdominal pain, nausea and vomiting likely due to gastroparesis management with IV fluids, IV antiemetic therapy, IV anti-reflux therapy and evaluation by subspecialty. Quality Stroke Does the patient have a stroke diagnosis?: No VTE Prior VTE?: No VTE Risk Level:: Medical - moderate - high VTE Device Contraindication: Treatment Not Indicated VTE Drug Contraindication: N/A - Med Ordered
[2024-12-08] MEDS: Lactated Ringers 1,000 ML 100 ML IVCONT ×2 (08:59→20:45)
--- NOTE | 2024-12-08 09:54 | HO.WOUND ---
Wound Consult: Initial 44 yr old female admitted to [facility] [place] on 12/07/24 - See progress notes and H&P for detailed history. Wound consult placed for skin tear left of ostomy. Patient agreeable to assessment and photo documentation. patient is independent with ostomy care, reports last pouch change when removing pouch, skin tear sustained. patient reports treating with crusting method with ostomy powder and skin barrier - area is nearly healed- recommend continue current treatment. patient reports changing pouch every 4-5 days Etiology: skin tear/medical adhesive related injury Abdomen Wound Bed: dry pink epithelium Drainage / Odor: none Nanci wound: ? No Induration, Fluctuance or Warmth noted Pain: mild Goals of Treatment: ? continue skin barrier with pouch changes Recommendations: Abdomen- continue skin barrier or crusting with pouch changes including area of irritation Re-consult wound care Nurse for wound deterioration or wound changes.
--- NOTE | 2024-12-08 09:59 | P.CNGI_ITS ---
History of Present Illness Data of Consult Service Date: 12/08/24 Requesting physician: Jayden Solitario Primary Care Provider: Caitlin Harding MD [facility] Reason for consult: Intractable N/V This is a 43-year-old female with past medical history of depression with previous SI attempts, anxiety, PTSD, agoraphobia, PNES, asthma, chronic abdominal pain/IBS, multiple abdominal surgeries including previous cholecystectomy, hysterectomy, and most recently end colostomy done for severe constipation, who presented to the emergency room for N/V x 5 days. Patient known to GI service for colon dysmotility with hx of recent sigmoid colostomy on behest of patient due to severe constipation. There was also initially question of sigmoid stricture on imaging, on flex sig had no obvious stricture but had significant colon wall edema leading to mild luminal narrowing. Now coming in for N/V and epigastric abd pain that started last weekend. Was seen in ER on .5 for the same but went back home as she was unsure if she wanted to get admitted. Returned 12/07 with same symptoms and concern for dehydration. Reports burning epigastric pain which gets worse with eating/drinking anything with severe N/V. Reports 5-6 emesis even when she has not eaten anything. She recently had a GES that shows gastroparesis. Pt also reports that she frequently loses bladder control even without any mechanical stress like coughing/sneezing etc. Review of Systems 2 Review of Systems: Yes all other systems are reviewed and are negative PMFSH Past Medical History Medical History Postprocedural seroma of skin and subcutaneous tissue following other procedure Colostomy in place Hx of flexible sigmoidoscopy Proctosigmoiditis Stricture of sigmoid colon Colon wall thickening Obesity, Class II, BMI 35-39.9 IBS (irritable bowel syndrome) History of colitis Gastric ulcer Interstitial cystitis Occipital neuralgia of right side History of suicidal ideation Anxiety Agoraphobia MDD (major depressive disorder) PTSD (post-traumatic stress disorder) Family History Family History Father Prostate cancer Maternal Uncle Colon cancer Maternal Grandmother Breast cancer Surgical History Surgical History Hx of colonoscopy Hx of section H/O: hysterectomy Hx of cholecystectomy (~12/2022) Social History Social History Household Members: Spouse Housing: House Do you presently have visiting nurse or other home services: Yes ([employer]) Alcohol intake: never 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 Patient Tobacco Use Status: Never used Tobacco Substance Use Type: Marijuana service: No Meds Allergies Allergy/AdvReac Type Severity Reaction Status Date / Time propofol Allergy Intermediate Itching Verified 12/07/24 16:24 morphine Allergy Mild Itching Verified 12/07/24 16:24 Active Medications: Current Medications Capsaicin (Capsaicin 0.025% Cream 60 Gm Tube) 1 appl TOPICAL TID PRN; Protocol PRN Reason: Pain, Moderate(Pain Scale 4-6) Enoxaparin Sodium (Enoxaparin Sodium 40 Mg/0.4 Ml Syringe) 40 mg SUBCUT Q24H [facility] Last Admin: 12/08/24 08:59 Dose: 40 mg Hydromorphone HCl (Hydromorphone Hcl 1 Mg/Ml Syringe) 1 mg IVPUSH Q4H PRN; Protocol PRN Reason: Pain, Severe (Pain Scale 7-10) Last Admin: 12/08/24 09:13 Dose: 1 mg Lactated Ringer's (Lr) 1,000 mls @ 100 mls/hr IVCONT .Q10H [facility] Last Admin: 12/08/24 08:59 Dose: 100 mls/hr Lidocaine (Lidocaine 4 % Patch Adh..Patch) 1 patch TRANSDERMA DAILY [facility]; Protocol Last Admin: 12/08/24 08:59 Dose: Not Given Metoclopramide HCl (Metoclopramide Hcl 10 Mg/2 Ml Vial) 10 mg IVPUSH QID [facility] Last Admin: 12/08/24 06:29 Dose: 10 mg Ondansetron HCl (Ondansetron Hcl 4 Mg/2 Ml Vial) 4 mg IVPUSH Q4H PRN PRN Reason: Nausea and Vomiting Pantoprazole Sodium (Pantoprazole Sodium 40 Mg/10 Ml Vial) 40 mg IVPUSH BID@0630,1630 [facility] Last Admin: 12/08/24 05:37 Dose: 40 mg Sodium Chloride (0.9 % Sodium Chloride Flush 3 Ml Syringe) 3 ml IVFLUSH QSHIFT [facility] Last Admin: 12/08/24 07:54 Dose: Not Given Home Medications ?Medication ?Instructions ?Recorded ?Confirmed ?Last Taken ?Type lamotrigine 200 mg tablet 200 mg PO DAILY 01/02/2311/2412/06/24 History valacyclovir 500 mg tablet 500 mg PO DAILY 01/02/2312/06/24 History vortioxetine 20 mg tablet 20 mg PO DAILY 01/02/2311/2412/06/24 History (Trintellix) hydroxyzine HCl 25 mg tablet 25 mg PO BEDTIME 01/08/24 12/08/24 12/06/24 History lamotrigine 25 mg tablet 50 mg PO BEDTIME 01/08/2412/06/24 History bisacodyl 5 mg tablet,delayed 10 mg PO BEDTIME 5 12/08/24 12/06/24 History release magnesium oxide 400 mg PO DAILY 07/25/2411/2412/06/24 History mirabegron 50 mg tablet,extended 50 mg PO DAILY 12/08/24 12/06/24 History release 24 hr (Myrbetriq) eszopiclone 3 mg tablet (Lunesta) 3 mg PO BEDTIME 0510/2412/08/24 12/06/24 History clonazepam 1 mg disintegrating 1 mg PO TID 12/08/2412/06/24 History tablet pantoprazole 40 mg tablet,delayed 40 mg PO DAILY@0630 12/08/24 12/08/24 12/06/24 History release Physical Exam 2 Exam: Exam: NAD nonicteric L arm with ecchymosis at IV site abd soft, tenderness in RUQ and epigastrium, colostomy without any stool no JAZ Vital Signs: Vital Signs: Last Vital Signs Temp 98 F 12/08/24 06:46 Pulse 71 12/08/24 06:46 Resp 16 12/08/24 06:46 BP 115/68 12/08/24 06:46 Pulse Ox 95 12/08/24 06:46 O2 Del Method Room Air 12/08/24 06:46 BMI result Body Mass Index 41.4 Results Labs 12/08/24 06:08 12/08/24 06:08 Labs: Short CBC 12/07/24 12/08/24 Range/Units 17:19 06:08 WBC 8.0 6.5 (4.8-10.8) X10*3/uL Hgb 13.5 11.9 L (12.0-16.0) g/dl Hct 39.5 36.6 L (37.0-47.0) % Plt Count 442 H 365 (160-400) X10*3/uL BMP 12/07/24 12/08/24 17:19 06:08 Sodium 139 141 Potassium 4.1 3.7 Chloride 104 108 Carbon Dioxide 24 25 BUN 11 11 Creatinine 0.87 0.70 Calcium 9.3 D 8.4 D Liver Function 12/07/24 Range/Units 17:19 Total Bilirubin 0.3 (0.0-1.0) mg/dL AST 28 (5-31) U/L ALT 28 (0-31) U/L Alkaline Phosphatase 124 H (39-117) U/L Albumin 4.5 (3.5-5.0) g/dL Urine 12/07/24 Range/Units 21:06 Urine Color Yellow Urine Appearance Clear Urine pH 5.5 (5.0-9.0) Ur Specific [place] 1.025 (1.005-1.025) Urine Protein Negative (Neg-Trace) mg/dL Urine Glucose (UA) Negative (Negative) mg/dL Assessment and Plan (1) Gastroparesis: Status: Acute (2) Nausea & vomiting: Qualifiers: Vomiting type: unspecified Qualified Code(s): R11.2 - Nausea with vomiting, unspecified Status: Acute (3) Colostomy in place: Status: Acute Plan Patient with intractable nausea and vomiting x 5 days. Differential include infectious gastroenteritis versus PUD versus gastroparesis flare. Plan: -clear liquids as tolerated -12 lead EKG, if QTC normal, start erythromycin 250 t.i.d. x 2 days -Will schedule for EGD tmrw -NPO after MN -pt with sx of diffuse upper and lower GI dysmotility -- small fiber neuropathy (though typically also assoc with cutaneous manifestations) and autonomic neuropathy (since also has bowel and bladder issues) also in differential and eventually should be referred to a dedicated center for testing ([facility]) as outpatient. Thank you for allowing me to participate in her care. Please do not hesitate to reach out for questions or concerns. Procedures Date of Service Date of Service: 12/08/24
--- NOTE | 2024-12-08 13:15 | P.CONAN_ITS ---
Documented by User: Dacia Wynne NP 12/08/24 13:29 HPI - Anesthesia Eval Consult details Narrative: 44 yr old female for upper endoscopy with possible dilation BMI [address] PMF Active Problems Active Problems: All Active Problems (Updated 12/07/24 @ 23:59 by Jayden Solitario MD) Gastroparesis (Acute) Colitis (Acute) Nausea & vomiting (Acute) Postprocedural seroma of skin and subcutaneous tissue following other procedure (Acute) Fever (Acute) S/P colostomy (Acute) Colostomy in place (Acute) Occipital neuralgia (Acute) Inflammatory bowel disease (Acute) Epidural abscess, L2-L5 (Acute) Post-dural puncture headache (Acute) History of colitis (Acute) Interstitial cystitis (Acute) Occipital neuralgia of right side (Acute) Past Medical History Medical History (Updated 12/09/24 @ 14:09 by Deanne Choudhury RN) Seizures Hx of Postprocedural seroma of skin and subcutaneous tissue following other procedure Colostomy in place Hx of flexible sigmoidoscopy Proctosigmoiditis Stricture of sigmoid colon Colon wall thickening Obesity, Class II, BMI 35-39.9 IBS (irritable bowel syndrome) History of colitis Gastric ulcer Interstitial cystitis Occipital neuralgia of right side History of suicidal ideation Anxiety Agoraphobia MDD (major depressive disorder) PTSD (post-traumatic stress disorder) Family History Family History Father Prostate cancer Maternal Uncle Colon cancer Maternal Grandmother Breast cancer Surgical History Surgical History (Updated 12/09/24 @ 14:07 by Deanne Choudhury RN) History of tonsillectomy and adenoidectomy Hx of appendectomy H/O endoscopy Hx of colonoscopy Hx of section H/O: hysterectomy Hx of cholecystectomy (~12/2022) History of Problems with Anesthesia: No Social History Social History Household Members: Spouse Housing: House 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) Alcohol intake: never 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 Patient Tobacco Use Status: Former Tobacco user Substance Use Type: Marijuana service: No Meds Allergies Allergy/AdvReac Type Severity Reaction Status Date / Time propofol Allergy Intermediate Itching Verified 12/07/24 16:24 morphine Allergy Mild Itching Verified 12/07/24 16:24 Active Medications: Current Medications Bisacodyl (Bisacodyl 5 Mg Tablet.Dr) 10 mg PO BEDTIME [facility] Capsaicin (Capsaicin 0.025% Cream 60 Gm Tube) 1 appl TOPICAL TID PRN; Protocol PRN Reason: Pain, Moderate(Pain Scale 4-6) Clonazepam (Clonazepam 1 Mg Tablet) 1 mg PO TID MARIAH Docusate Sodium (Docusate Sodium 100 Mg Capsule) 100 mg PO BID [facility] Enoxaparin Sodium (Enoxaparin Sodium 40 Mg/0.4 Ml Syringe) 40 mg SUBCUT Q24H MARIAH Last Admin: 12/08/24 08:59 Dose: 40 mg Hydromorphone HCl (Hydromorphone Hcl 1 Mg/Ml Syringe) 1 mg IVPUSH Q4H PRN; Protocol PRN Reason: Pain, Severe (Pain Scale 7-10) Last Admin: 12/08/24 09:13 Dose: 1 mg Hydroxyzine HCl (Hydroxyzine Hcl 25 Mg Tablet) 25 mg PO BEDTIME [facility] Lactated Ringer's (Lr) 1,000 mls @ 100 mls/hr IVCONT .Q10H [facility] Last Admin: 12/08/24 08:59 Dose: 100 mls/hr Lamotrigine (Lamotrigine 25 Mg Tablet) 50 mg PO BEDTIME MARIAH Lamotrigine (Lamotrigine 100 Mg Tablet) 200 mg PO DAILY [facility] Lamotrigine (Lamotrigine 100 Mg Tablet) 200 mg PO ONCE ONE Stop: 12/08/24 13:12 Lidocaine (Lidocaine 4 % Patch Adh..Patch) 1 patch TRANSDERMA DAILY [facility]; Protocol Last Admin: 12/08/24 08:59 Dose: Not Given Magnesium Oxide (Magnesium Oxide 400 Mg Tablet) 400 mg PO DAILY [facility] Metoclopramide HCl (Metoclopramide Hcl 10 Mg/2 Ml Vial) 10 mg IVPUSH QID [facility] Last Admin: 12/08/24 12:17 Dose: 10 mg Mirabegron (Mirabegron 50 Mg Tab.Er.24h) 50 mg PO DAILY [facility] Non-Formulary Medication (Eszopiclone [Lunesta]) 3 mg PO BEDTIME [facility] Ondansetron HCl (Ondansetron Hcl 4 Mg/2 Ml Vial) 4 mg IVPUSH Q4H PRN PRN Reason: Nausea and Vomiting Pantoprazole Sodium (Pantoprazole Sodium 40 Mg/10 Ml Vial) 40 mg IVPUSH BID@0630,1630 [facility] Last Admin: 12/08/24 05:37 Dose: 40 mg Sodium Chloride (0.9 % Sodium Chloride Flush 3 Ml Syringe) 3 ml IVFLUSH QSHIFT [facility] Last Admin: 12/08/24 07:54 Dose: Not Given Sucralfate (Sucralfate 1 Gm Tablet) 1 gm PO BID [facility] Valacyclovir HCl (Valacyclovir Hcl 500 Mg Tablet) 500 mg PO DAILY [facility] Vortioxetine (Vortioxetine Hydrobromide 20 Mg Tablet) 20 mg PO DAILY [facility] Home Medications ?Medication ?Instructions ?Recorded ?Confirmed ?Last Taken ?Type lamotrigine 200 mg tablet 200 mg PO DAILY 01/02/2311/2412/06/24 History valacyclovir 500 mg tablet 500 mg PO DAILY 01/02/2312/06/24 History vortioxetine 20 mg tablet 20 mg PO DAILY 01/02/2311/2412/06/24 History (Trintellix) hydroxyzine HCl 25 mg tablet 25 mg PO BEDTIME 01/08/24 12/08/24 12/06/24 History lamotrigine 25 mg tablet 50 mg PO BEDTIME 01/08/2412/06/24 History bisacodyl 5 mg tablet,delayed 10 mg PO BEDTIME 5 12/08/24 12/06/24 History release magnesium oxide 400 mg PO DAILY 07/25/2411/2412/06/24 History mirabegron 50 mg tablet,extended 50 mg PO DAILY 12/08/24 12/06/24 History release 24 hr (Myrbetriq) eszopiclone 3 mg tablet (Lunesta) 3 mg PO BEDTIME 10/2412/08/24 12/06/24 History clonazepam 1 mg disintegrating 1 mg PO TID 12/08/2412/06/24 History tablet pantoprazole 40 mg tablet,delayed 40 mg PO DAILY@0630 12/08/24 12/08/24 12/06/24 History release Exam Height,Weight and Vital Signs: Height 5 ft 3 in Weight 106 kg Last Vital Signs Temp 96.7 F L 12/08/24 11:10 Pulse 70 12/08/24 11:10 Resp 15 12/08/24 11:10 BP 119/68 12/08/24 11:10 Pulse Ox 95 12/08/24 11:10 O2 Del Method Room Air 12/08/24 11:10 Pertinent Lab Results Pertinent Lab Results: Laboratory Tests 12/07/24 12/07/24 12/08/24 17:19 21:06 06:07 WBC 8.0 RBC 5.06 Hgb 13.5 Hct 39.5 MCV 78.1 L MCH 26.7 L MCHC 34.2 RDW 14.2 Plt Count 442 H MPV 9.4 Immature Gran % (Auto) 0.2 Neut % (Auto) 67.2 Lymph % (Auto) 27.0 [place] % (Auto) 4.7 Eos % (Auto) 0.5 Baso % (Auto) 0.4 Lymph # (Auto) 2.2 [place] # (Auto) 0.4 Eos # (Auto) 0.0 Baso # (Auto) 0.0 Abs Immat Gran (auto) 0.02 Absolute Neuts (auto) 5.4 Absolute Nucleated RBC 0.000 Nucleated RBC % (auto) 0.0 ESR 28 H Sodium 139 Potassium 4.1 Chloride 104 Carbon Dioxide 24 Anion Gap 15 BUN 11 Creatinine 0.87 Estim Creat Clear Calc 96.3 Estimated GFR > 60 Random Glucose 100 Calcium 9.3 D Phosphorus Total Bilirubin 0.3 AST 28 ALT 28 Alkaline Phosphatase 124 H C-Reactive Protein Total Protein 7.9 Albumin 4.5 Lipase 16 Beta HCG, Quant < 2 Urine Color Yellow Urine Appearance Clear Urine pH 5.5 Ur Specific [place] 1.025 Urine Protein Negative Urine Glucose (UA) Negative Urine Ketones 40 Urine Blood Negative Urine Nitrite Negative Ur Leukocyte Esterase Negative 12/08/24 06:08 WBC 6.5 RBC 4.51 Hgb 11.9 L Hct 36.6 L MCV 81.2 MCH 26.4 L MCHC 32.5 RDW 14.3 Plt Count 365 MPV 9.9 Immature Gran % (Auto) 0.5 H Neut % (Auto) 45.0 Lymph % (Auto) 46.0 H [place] % (Auto) 6.6 Eos % (Auto) 1.4 Baso % (Auto) 0.5 Lymph # (Auto) 3.0 [place] # (Auto) 0.4 Eos # (Auto) 0.1 Baso # (Auto) 0.0 Abs Immat Gran (auto) 0.03 Absolute Neuts (auto) 2.9 Absolute Nucleated RBC 0.000 Nucleated RBC % (auto) 0.0 ESR Sodium 141 Potassium 3.7 Chloride 108 Carbon Dioxide 25 Anion Gap 12 BUN 11 Creatinine 0.70 Estim Creat Clear Calc 120.8 Estimated GFR > 60 Random Glucose 82 Calcium 8.4 D Phosphorus 2.7 Total Bilirubin AST ALT Alkaline Phosphatase C-Reactive Protein 1.39 H Total Protein Albumin Lipase Beta HCG, Quant Urine Color Urine Appearance Urine pH Ur Specific [place] Urine Protein Urine Glucose (UA) Urine Ketones Urine Blood Urine Nitrite Ur Leukocyte Esterase Assessment and Plan Final Anesthetic Review History of Problems with Anesthesia: No Documented by User: Kiesha Pino MD 12/09/24 15:00 [facility] Past Medical History Medical History (Updated 12/09/24 @ 14:09 by Deanne Choudhury RN) Seizures Hx of Postprocedural seroma of skin and subcutaneous tissue following other procedure Colostomy in place Hx of flexible sigmoidoscopy Proctosigmoiditis Stricture of sigmoid colon Colon wall thickening Obesity, Class II, BMI 35-39.9 IBS (irritable bowel syndrome) History of colitis Gastric ulcer Interstitial cystitis Occipital neuralgia of right side History of suicidal ideation Anxiety Agoraphobia MDD (major depressive disorder) PTSD (post-traumatic stress disorder) Family History Family History Father Prostate cancer Maternal Uncle Colon cancer Maternal Grandmother Breast cancer Family history of problems with anesthesia: No Surgical History Surgical History (Updated 12/09/24 @ 14:07 by Deanne Choudhury RN) History of tonsillectomy and adenoidectomy Hx of appendectomy H/O endoscopy Hx of colonoscopy Hx of section H/O: hysterectomy Hx of cholecystectomy (~12/2022) Social History Social History Household Members: Spouse Housing: House 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) Alcohol intake: never 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 Patient Tobacco Use Status: Former Tobacco user Substance Use Type: Marijuana service: No Meds Allergies Allergy/AdvReac Type Severity Reaction Status Date / Time propofol Allergy Intermediate Itching Verified 12/07/24 16:24 morphine Allergy Mild Itching Verified 12/07/24 16:24 Home Medications ?Medication ?Instructions ?Recorded ?Confirmed ?Last Taken ?Type lamotrigine 200 mg tablet 200 mg PO DAILY 01/02/2311/2412/06/24 History valacyclovir 500 mg tablet 500 mg PO DAILY 01/02/2312/06/24 History vortioxetine 20 mg tablet 20 mg PO DAILY 01/02/2311/2412/06/24 History (Trintellix) hydroxyzine HCl 25 mg tablet 25 mg PO BEDTIME 01/08/24 12/08/24 12/06/24 History lamotrigine 25 mg tablet 50 mg PO BEDTIME 01/08/2412/06/24 History bisacodyl 5 mg tablet,delayed 10 mg PO BEDTIME 12/08/24 12/06/24 History release magnesium oxide 400 mg PO DAILY 07/25/2411/2412/06/24 History mirabegron 50 mg tablet,extended 50 mg PO DAILY 12/08/24 12/06/24 History release 24 hr (Myrbetriq) eszopiclone 3 mg tablet (Lunesta) 3 mg PO BEDTIME 0510/2412/08/24 12/06/24 History clonazepam 1 mg disintegrating 1 mg PO TID 12/08/2412/06/24 History tablet pantoprazole 40 mg tablet,delayed 40 mg PO DAILY@0630 12/08/24 12/08/24 12/06/24 History release Exam Airway Mallampati Class: II TM Dist: >3cm Neck ROM: Full Heart: tachy Lungs: cta Assessment and Plan Assessment Anesthesia Assessment: Anesthesia Plan Discussed and Chart Reviewed Final Anesthetic Review Family History of Problems with Anesthesia: No NPO: Yes ASA Class: III Final Preanesthetic Review: No Changes in Pt Med Stat, Meds/Allgs Chart Reviewed and Consent Obtained/Reviewed Patient Risk: Intermediate Procedure Risk: Intermediate Anesthetic Plan Anesthetic Plan: MAC: Disposition: Standard PACU
--- NOTE | 2024-12-08 13:31 | PHA.MEDREC ---
Addendum entered by Aziza Parker RPh 12/08/24 13:49: MED REC REVIEWED BY [facility] Original Note: Pharmacy Consult ? Medication Reconciliation Pharmacy has completed the medication reconciliation. Spoke with pt and she has on hand a list of medications we were able to read down and confirm. Pt confirmed she no longer takes Famotidine and stopped it about 3 weeks ago, despite claims showing it was last filled 12/02.
--- NOTE | 2024-12-08 14:31 | MHC.SLORD ---
Speech Language Pathology Order Status: COUNTER HAND to assess when indicated, see chart for details re:upper endoscopy with possible dilation 12/08.
--- NOTE | 2024-12-08 16:32 | MHC.CM.PN ---
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
[2024-12-08] MEDS: Valproic Acid (as Sodium Salt) 250 MG in Dextrose 5 % 50 ML 52.5 MG IV ×2 (18:03→23:07)
[2024-12-09] VITALS (9 sets, daily range): BP systolic 98–122; BP diastolic 49–77; PULSE 83–108; RESP 12–18; TEMP 36.1–37.2; O2SAT 93–99
--- NOTE | 2024-12-09 | ECG_ITS ---
Test Reason : STAT Blood Pressure : */* mmHG Vent. Rate : 92 BPM Atrial Rate : 92 BPM P-R Int : 144 ms QRS Dur : 86 ms QT Int : 360 ms P-R-T Axes : 73 45 40 degrees QTcB Int : 445 ms Normal sinus rhythm Normal ECG When compared with ECG of 30-Oct-2024 22:31, No significant change was found Referred By: Stephanie Godinez Electronically Signed By: SELENE HUTTON MD
[2024-12-09] MEDS: Valproic Acid (as Sodium Salt) 250 MG in Dextrose 5 % 50 ML 52.5 MG IV ×3 (04:50→17:19)
--- NOTE | 2024-12-09 07:57 | P.PNIM_ITS ---
Subjective Subjective Date of Service: 12/09/24 Interval History: gasteroparesis Review of Systems Unable to tolerate p.o., has persistent nausea vomiting No diarrhea or fever Review of Systems: Yes all other systems are reviewed and are negative Physical Exam 2 Exam: Exam: Appearance: Alert.? Oriented X3.? cvs: rrr, [id number] . res: clear to auscultation ,no rhonchii or wheezing abd: no rebound or guarding ,has epigastric discomfort,colostomy bag at place( clear liquid), bs present. ext pulses present , no cyanosis . neuro: axo3 , nonfocal. Vital Signs: Vital Signs: Last Vital Signs Temp 98.9 F 12/09/24 04:00 Pulse 83 12/09/24 04:00 Resp 18 12/09/24 04:00 BP 116/58 L 12/09/24 04:00 Pulse Ox 95 12/09/24 04:00 O2 Del Method Room Air 12/09/24 04:00 BMI result Body Mass Index 41.4 Objective Data Active Medications Bisacodyl (Bisacodyl 5 Mg Tablet.Dr) 10 mg PO BEDTIME [facility] Last Admin: 12/08/24 22:01 Dose: Not Given Documented By: SARAH Non-Admin Reason: NPO Capsaicin (Capsaicin 0.025% Cream 60 Gm Tube) 1 appl TOPICAL TID PRN; Protocol PRN Reason: Pain, Moderate(Pain Scale 4-6) Clonazepam (Clonazepam 1 Mg Tablet) 1 mg PO TID [facility] Last Admin: 12/08/24 22:01 Dose: Not Given Documented By: SARAH Non-Admin Reason: NPO Docusate Sodium (Docusate Sodium 100 Mg Capsule) 100 mg PO BID PRN PRN Reason: Constipation Enoxaparin Sodium (Enoxaparin Sodium 40 Mg/0.4 Ml Syringe) 40 mg SUBCUT Q24H [facility] Last Admin: 12/08/24 08:59 Dose: 40 mg Documented By: VINCE Hydromorphone HCl (Hydromorphone Hcl 1 Mg/Ml Syringe) 1 mg IVPUSH Q4H PRN; Protocol PRN Reason: Pain, Severe (Pain Scale 7-10) Last Admin: 12/09/24 03:43 Dose: 1 mg Documented By: SARAH Hydroxyzine HCl (Hydroxyzine Hcl 25 Mg Tablet) 25 mg PO BEDTIME [facility] Last Admin: 12/08/24 22:02 Dose: Not Given Documented By: SARAH Non-Admin Reason: NPO Lactated Ringer's (Lr) 1,000 mls @ 100 mls/hr IVCONT .Q10H [facility] Last Infusion: 12/09/24 05:57 Dose: 100 mls/hr Documented By: SARAH Valproic Acid 250 mg/ Dextrose 52.5 mls @ 52.5 mls/hr IV Q6H [facility] Last Infusion: 12/09/24 05:57 Dose: Infused Documented By: SARAH Lamotrigine (Lamotrigine 25 Mg Tablet) 50 mg PO BEDTIME [facility] Last Admin: 12/08/24 22:02 Dose: Not Given Documented By: SARAH Non-Admin Reason: NPO Lamotrigine (Lamotrigine 100 Mg Tablet) 200 mg PO DAILY [facility] Lidocaine (Lidocaine 4 % Patch Adh..Patch) 1 patch TRANSDERMA DAILY [facility]; Protocol Last Admin: 12/08/24 08:59 Dose: Not Given Documented By: VINCE Non-Admin Reason: Patient Refused Magnesium Oxide (Magnesium Oxide 400 Mg Tablet) 400 mg PO DAILY [facility] Metoclopramide HCl (Metoclopramide Hcl 10 Mg/2 Ml Vial) 10 mg IVPUSH QID [facility] Last Admin: 12/08/24 20:42 Dose: 10 mg Documented By: SARAH Mirabegron (Mirabegron 50 Mg Tab.Er.24h) 50 mg PO DAILY [facility] Non-Formulary Medication (Eszopiclone [Lunesta]) 3 mg PO BEDTIME [facility] Ondansetron HCl (Ondansetron Hcl 4 Mg/2 Ml Vial) 4 mg IVPUSH Q4H PRN PRN Reason: Nausea and Vomiting Last Admin: 12/09/24 00:46 Dose: 4 mg Documented By: SARAH Pantoprazole Sodium (Pantoprazole Sodium 40 Mg/10 Ml Vial) 40 mg IVPUSH BID@0630,1630 [facility] Last Admin: 12/09/24 05:57 Dose: 40 mg Documented By: SARAH Sodium Chloride (0.9 % Sodium Chloride Flush 3 Ml Syringe) 3 ml IVFLUSH QSHIFT [facility] Last Admin: 12/09/24 00:10 Dose: Not Given Documented By: SARAH Non-Admin Reason: IV Running Sucralfate (Sucralfate 1 Gm Tablet) 1 gm PO BID [facility] Last Admin: 12/08/24 22:02 Dose: Not Given Documented By: SARAH Non-Admin Reason: NPO Valacyclovir HCl (Valacyclovir Hcl 500 Mg Tablet) 500 mg PO DAILY [facility] Vortioxetine (Vortioxetine Hydrobromide 20 Mg Tablet) 20 mg PO DAILY [facility] Labs 12/08/24 06:08 12/09/24 08:46 Labs: Laboratory Results - last 24 hr 12/08/24 06:07 ESR 28 H Assessment and Plan (1) Nausea & vomiting: Status: Acute (2) Gastroparesis: Status: Acute (3) Colitis: Status: Acute Assessment and Plan: 44 y/o woman with a PMHx significant for s/p colostomy by Dr. Allen due to long history of severe diarrhea alternating with constipation/dysmotility, chronic abdominal pain, cholecystectomy, IBS, GERD on esomeprazole and famotidine, interstitial, seizures, depression/anxiety, occipital neuralgia and interstitial cystitis presents with: Right upper abdominal/epigastric pain associated with nausea and vomiting; suspecting secondary to gastroparesis; possible associated acute gastritis/esophagitis. continue Strict NPO,IV fluids,Reglan 10 mg IV q.i.d., Protonix 40 mg IV b.i.d., Dilaudid IV as needed. Gi eval noted -added erythromycin iv started if does not improve -may need EGD. Abnormal abdominal pelvis CT scan. New wall thickening of the large instestine is nonspeciic and concerning for colitis, including transverse colon. No leukocytosis (normal differential). CRP 1.39and ESR 28. Hold antibiotics for now. Seizures. Currently unable to swallow her home meds. hold lamotrigine ,switched to iv valproic acid for now -once able to swallow can switched back to lamotrigine. Insomnia. Uses eszopiclone but not formulary. will bring this med. Depression/anxiety/PTSD/body dysmorphia/agoraphobia. Continue clonazepam 1 mg PO TID in hydroxyzine when able. Chronic constipation. Continue Colace and bisacodyl when able. Nasal allergies. Continue fluticasone as needed. Hx of hysterectomy due to precancerous lesion. Code status: Full. DVT prophylaxis: Lovenox. ongoing need for hospitalization for acute GI symptoms including abdominal pain, nausea and vomiting likely due to gastroparesis management with IV fluids, IV antiemetic therapy, IV anti-reflux therapy and might need egd if does not improve. Quality Stroke Does the patient have a stroke diagnosis?: No VTE Prior VTE?: No VTE Risk Level:: Medical - moderate - high VTE Device Contraindication: Treatment Not Indicated VTE Drug Contraindication: N/A - Med Ordered
[2024-12-09] MEDS: 0.9 % Sodium Chloride Flush 3 ML SYRINGE IVFLUSH ×2 (09:01→16:53)
[2024-12-09 09:23] LABS: Anion Gap 13 (12-20); Blood Urea Nitrogen 8 mg/dL (9-16); Calcium 9.2 mg/dL (8.4-10.2); Carbon Dioxide 26 mmol/L (22-29); Chloride 103 mmol/L (96-108); Creatinine Clr Calc Pharmacy 120.8; Estimated Glomerular Filt Rate > 60; Magnesium 2.0 mg/dL (1.6-2.6); Potassium 3.9 mmol/L (3.3-5.1); Sodium 138 mmol/L (135-145)
[2024-12-09] MEDS: Lactated Ringers 1,000 ML 100 ML IVCONT (09:42)
[2024-12-09] MEDS: Potassium Chloride/H20 10 MEQ/100 ML PIGGYBACK 100 MEQ IV (12:30)
--- NOTE | 2024-12-09 12:34 | MHC.SLORD ---
Speech Language Pathology Order Status: Patient NPO for EGD, not seen for swallow evaluation 12/09/2024. JORDAN WORKER will continue to follow.
--- NOTE | 2024-12-09 14:29 | PC.NURSE ---
medicated for nausea. dry heaves. no vomiting. hob 90 degrees. pale.
--- NOTE | 2024-12-09 14:29 | PC.NURSE ---
20g right forearm. no leaking intact.
--- NOTE | 2024-12-09 14:37 | MHC.SHP ---
Pre-Procedural Eval Section A - 24 Hr Update-Section A only Date of Service: 12/09/24 The patient is an INPATIENT: Yes The patient has been examined within 24 hours of the surgical procedure. The History & Physical has been completed within 30 days and I have reviewed it.: Yes Section B - Complete if H&P > 30 days Chief Complaint: Intractable nausea and vomiting Allergies: Allergies Allergy/AdvReac Type Severity Reaction Status Date / Time propofol Allergy Intermediate Itching Verified 12/07/24 16:24 morphine Allergy Mild Itching Verified 12/07/24 16:24 Plan Diagnosis/Plan: Unchanged I have reviewed the history and physical and performed a pertinent physical examination on my patient. No changes have occurred unless specified. Time Spent With Patient Time: Total time managing care of this patient today ____ minutes.
--- NOTE | 2024-12-09 15:32 | P.OP_ITS ---
Operative Note Operative Note Date of Service: 12/09/24 Narrative: Procedure: Esophagogastroduodenoscopy Endoscopist: Apoorva Villanueva MD Indication: N/V Anesthesia Provider: Dr Kiesha De Leon Anesthesia Type: MAC ?? EGD Procedure:?? The procedure, indications, preparation and potential complications were reviewed with the patient, who indicated understanding and gave written informed consent to proceed. A physical exam was performed. The endoscope was introduced through the mouth, and advanced to the second part of duodenum. The mucosa was carefully examined on slow withdrawal of the endoscope. The patient tolerated the procedure well. There were no immediate complications.? ? EGD Findings:? * Esophagus:? Normal mucosa noted in the entire esophagus. The Z line was at 38 cm. Lower esophagus forceps biopsies were obtained for histology. * Stomach:? Mild erythema noted in antrum. Retroflexion was performed in the cardia. Random cold forceps gastric biopsies were taken to rule out H pylori. A through the scope balloon was inserted through the biopsy channel and advanced to the pylorus. The pyloric channel was dilated incrementally from 18-20 mm without any resistance felt. No heme or tear was noted at the end of dilation. * Duodenum:? Erythema, edema and a few erosions noted in the duodenal bulb and 1st portion of the duodenum. Cold forceps biopsies were taken for histology. EGD Impressions:? * Normal esophagus (biopsy) * Gastritis (biopsy) * Duodenitis (biopsy) ?? Recommendations:?? * Empiric dilation of pyloric channel performed for reported gastroparesis. * Continue PPI therapy. Can be switched to PO. * Switch erythromycin to PO and taper off over the next 3 days. * Add carafate 10 ml TID x 14 days. * If patient continues to have persistent nausea and vomiting over the next 1-2 days, consider central source. Consider head imaging (CT head from August was without contrast). Above has been reviewed with the patient.
[2024-12-09] MEDS: Sucralfate Oral Suspension 1 GM/10 ML ORAL.SUSP PO (21:03)
[2024-12-09] MEDS: Lactated Ringers 1,000 ML 125 ML IVCONT (21:11)
[2024-12-10] MEDS: Valproic Acid (as Sodium Salt) 250 MG in Dextrose 5 % 50 ML 52.5 MG IV ×5 (00:08→23:59)
[2024-12-10 03:13] VITALS: BP 118/56; PULSE 85; RESP 18; TEMP 37.4; O2SAT 95
[2024-12-10] MEDS: Lactated Ringers 1,000 ML 125 ML IVCONT ×3 (04:09→23:25)
[2024-12-10 06:45] VITALS: BP 112/64; PULSE 98; RESP 17; TEMP 36.7; O2SAT 96
[2024-12-10] MEDS: Sucralfate Oral Suspension 1 GM/10 ML ORAL.SUSP PO ×4 (09:08→20:24)
[2024-12-10] MEDS: Mirabegron 50 MG TAB.ER.24H PO (09:09)
--- NOTE | 2024-12-10 09:19 | HO.POSTANES ---
Post Anesthesia Evaluation Post Anesthesia Evaluation Date of Service: 12/10/24 Vital Signs: Vital Signs Temp Pulse Resp BP Pulse Ox O2 Del Method 12/10/24 06:45 98.1 F 98 17 112/64 96 Room Air 12/10/24 03:13 99.3 F 85 18 118/56 L 95 Room Air 12/09/24 23:12 98.6 F 86 18 112/62 95 Room Air Anesthesia: Monitored Mental Status: Awake (sleeping at time of post op) Pain Control: Satisfactory Nausea/Vomiting: None Hydration: Adequate Anesthesia-Related Issues: No Anes. Related Issues
[2024-12-10 11:44] VITALS: BP 101/58; PULSE 89; RESP 16; TEMP 36.6; O2SAT 93
--- NOTE | 2024-12-10 12:27 | HO.PM.IMPN ---
Subjective Subjective Date of Service: 12/10/24 Interval History: ready to start clears Physical Exam Exam: Exam: Appearance: Alert.? Oriented X3.? cvs: rrr, [id number] . res: clear to auscultation ,no rhonchii or wheezing abd: no rebound or guarding ,has epigastric discomfort,colostomy bag at place( clear liquid), bs present. ext pulses present , no cyanosis . neuro: axo3 , nonfocal. Vital Signs: Vital Signs: Last Vital Signs Temp 98 F 12/10/24 11:44 Pulse 89 12/10/24 11:44 Resp 16 12/10/24 11:44 BP 101/58 L 12/10/24 11:44 Pulse Ox 93 12/10/24 11:44 O2 Del Method Room Air 12/10/24 11:44 BMI result Body Mass Index 41.4 Objective Data Active Medications Azithromycin (Azithromycin 500 Mg Tablet) 500 mg PO Q24H [facility] Last Admin: 12/10/24 09:09 Dose: 500 mg Documented By: MERLYN Bisacodyl (Bisacodyl 5 Mg Tablet.Dr) 10 mg PO BEDTIME [facility] Last Admin: 12/09/24 21:08 Dose: 10 mg Documented By: LEFDENNIS Capsaicin (Capsaicin 0.025% Cream 60 Gm Tube) 1 appl TOPICAL TID PRN; Protocol PRN Reason: Pain, Moderate(Pain Scale 4-6) Clonazepam (Clonazepam 1 Mg Tablet) 1 mg PO TID [facility] Last Admin: 12/10/24 09:09 Dose: 1 mg Documented By: MERLYN Docusate Sodium (Docusate Sodium 100 Mg Capsule) 100 mg PO BID PRN PRN Reason: Constipation Enoxaparin Sodium (Enoxaparin Sodium 40 Mg/0.4 Ml Syringe) 40 mg SUBCUT Q24H [facility] Last Admin: 12/10/24 09:08 Dose: 40 mg Documented By: MERLYN Hydromorphone HCl (Hydromorphone Hcl 1 Mg/Ml Syringe) 1 mg IVPUSH Q4H PRN; Protocol PRN Reason: Pain, Severe (Pain Scale 7-10) Last Admin: 12/10/24 11:19 Dose: 1 mg Documented By: MERLYN Hydroxyzine HCl (Hydroxyzine Hcl 25 Mg Tablet) 25 mg PO BEDTIME [facility] Last Admin: 12/09/24 21:08 Dose: 25 mg Documented By: HUMBERTO Lactated Ringer's (Lr) 1,000 mls @ 125 mls/hr IVCONT .Q8H [facility] Last Admin: 12/10/24 04:09 Dose: 125 mls/hr Documented By: HUMBERTO Valproic Acid 250 mg/ Dextrose 52.5 mls @ 52.5 mls/hr IV Q6H [facility] Last Admin: 12/10/24 11:26 Dose: 52.5 mls/hr Documented By: MERLYN Lamotrigine (Lamotrigine 25 Mg Tablet) 50 mg PO BEDTIME [facility] Last Admin: 12/09/24 21:07 Dose: 50 mg Documented By: HUMBERTO Lamotrigine (Lamotrigine 100 Mg Tablet) 200 mg PO DAILY [facility] On Hold: 12/10/24 03:00 Last Admin: 12/09/24 09:07 Dose: Not Given Documented By: CLARA Non-Admin Reason: NPO Lidocaine (Lidocaine 4 % Patch Adh..Patch) 1 patch TRANSDERMA DAILY [facility]; Protocol Last Admin: 12/10/24 09:20 Dose: Not Given Documented By: MERLYN Non-Admin Reason: Patient Refused Magnesium Oxide (Magnesium Oxide 400 Mg Tablet) 400 mg PO DAILY [facility] Last Admin: 12/10/24 09:09 Dose: 400 mg Documented By: MERLYN Metoclopramide HCl (Metoclopramide Hcl 10 Mg/2 Ml Vial) 10 mg IVPUSH QID [facility] Last Admin: 12/10/24 09:09 Dose: 10 mg Documented By: MERLYN Mirabegron (Mirabegron 50 Mg Tab.Er.24h) 50 mg PO DAILY [facility] Last Admin: 12/10/24 09:09 Dose: 50 mg Documented By: MERLYN Naloxone HCl (Naloxone Hcl 0.4 Mg/Ml Vial) 0.04 mg IVPUSH Q5M PRN PRN Reason: Excessive sedation or RR < 8 Non-Formulary Medication (Eszopiclone [Lunesta]) 3 mg PO BEDTIME [facility] Omeprazole (Omeprazole 40 Mg Capsule.Dr) 40 mg PO BID@0630,1630 [facility] Last Admin: 12/10/24 05:44 Dose: 40 mg Documented By: ANDERSON Ondansetron HCl (Ondansetron Hcl 4 Mg/2 Ml Vial) 4 mg IVPUSH Q4H PRN PRN Reason: Nausea and Vomiting Last Admin: 12/09/24 08:57 Dose: 4 mg Documented By: MIGUEL A Sodium Chloride (0.9 % Sodium Chloride Flush 3 Ml Syringe) 3 ml IVFLUSH QSHIFT [facility] Last Admin: 12/10/24 09:13 Dose: Not Given Documented By: MERLYN Non-Admin Reason: IV Running Sucralfate (Sucralfate Oral Suspension 1 Gm/10 Ml Oral.Susp) 1 gm PO QIDACHS [facility] Last Admin: 12/10/24 11:19 Dose: 1 gm Documented By: MERLYN Valacyclovir HCl (Valacyclovir Hcl 500 Mg Tablet) 500 mg PO DAILY [facility] Last Admin: 12/10/24 09:09 Dose: 500 mg Documented By: MERLYN Vortioxetine (Vortioxetine Hydrobromide 20 Mg Tablet) 20 mg PO DAILY [facility] Last Admin: 12/10/24 09:09 Dose: 20 mg Documented By: MERLYN Labs 12/08/24 06:08 12/09/24 08:46 Assessment and Plan (1) Gastroparesis: Status: Acute Plan 44F PMH colostomy due to long history of severe diarrhea alternating constipation/dysmotility, chronic abdominal pain, cholecystectomy, IBS, GERD, interstitial cystitis, seizure disorder, depression/anxiety, occipital neuralgia presented with abdominal pain and nausea and vomiting Abdominal pain intractable nausea and vomiting due to gastroparesis Status post EGD with dilatation of pylorus Advanced to clears New wall thickening of the large intestine nonspecific Seizure disorder IV valproic acid, transitioned to lamotrigine when taking p.o. Mood disorder Continue Klonopin, Ativan Atarax Morbid obese Weight loss DVT prophylaxis with Lovenox Full Code reason for continued hospitalization: not toelrating po Quality Stroke Does the patient have a stroke diagnosis?: No VTE Prior VTE?: No VTE Risk Level:: Medical - moderate - high VTE Device Contraindication: Treatment Not Indicated VTE Drug Contraindication: N/A - Med Ordered
--- NOTE | 2024-12-10 13:40 | MHC.SLORD ---
Speech Language Pathology Order Status: Pt on clear liquid diet s/p endoscopy. RN consulted, pt not ready to advance diet today d/t nausea post op. LOAN REVIEW OFFICER spoke with pt who is in agreement with swallow evaluation, LOAN REVIEW OFFICER to assess 12/11 if indicated. Pt denies oropharyngeal dysphagia but voicing noted to be very soft and breathy.
--- NOTE | 2024-12-10 13:51 | MHC.CM.PN ---
Patient not medically cleared for dc. CM will continue to follow.
[2024-12-10] MEDS: Lipase/Prot/Amylase 12/38/60K CAPSULE.DR 1 CAP PO ×3 (13:56→20:23)
[2024-12-10 15:37] VITALS: BP 108/59; PULSE 86; RESP 18; TEMP 36.1; O2SAT 98
[2024-12-10 20:00] VITALS: BP 127/72; PULSE 100; RESP 18; TEMP 36.6; O2SAT 97
[2024-12-10 23:17] VITALS: BP 126/71; PULSE 97; RESP 18; TEMP 37.2; O2SAT 96
[2024-12-11] VITALS (7 sets, daily range): BP systolic 104–123; BP diastolic 56–66; PULSE 82–102; RESP 16–20; TEMP 36.1–37.2; O2SAT 93–95
[2024-12-11] MEDS: Valproic Acid (as Sodium Salt) 250 MG in Dextrose 5 % 50 ML 52.5 MG IV (05:53)
[2024-12-11 06:07] LABS: Hematocrit 34.6 % (37.0-47.0); Hemoglobin 11.6 g/dl (12.0-16.0); Mean Corpuscular HGB Conc 33.5 g/dl (31.0-35.0); Mean Corpuscular Hemoglobin 26.8 pg (27.0-33.0); Mean Corpuscular Volume 79.9 fL (80.0-98.0); NRBC Abs Auto 0.000 X10*3/uL (0.0-0.012); NRBC Pct Auto 0.0 /100WBC (0.0-0.2); Platelet Count 329 X10*3/uL (160-400); Red Blood Count 4.33 X10*6/uL (4.20-5.50); White Blood Count 4.6 X10*3/uL (4.8-10.8)
[2024-12-11 06:23] LABS: Anion Gap 12 (12-20); Blood Urea Nitrogen < 3 mg/dL (9-16); Calcium 8.4 mg/dL (8.4-10.2); Carbon Dioxide 30 mmol/L (22-29); Chloride 102 mmol/L (96-108); Creatinine Clr Calc Pharmacy 132.1; Estimated Glomerular Filt Rate > 60; Magnesium 1.8 mg/dL (1.6-2.6); Potassium 3.5 mmol/L (3.3-5.1); Sodium 140 mmol/L (135-145)
[2024-12-11] MEDS: Lactated Ringers 1,000 ML 125 ML IVCONT (07:02)
[2024-12-11] MEDS: Sucralfate Oral Suspension 1 GM/10 ML ORAL.SUSP PO ×4 (07:06→21:23)
[2024-12-11] MEDS: Lipase/Prot/Amylase 12/38/60K CAPSULE.DR 1 CAP PO ×4 (09:16→21:24)
[2024-12-11] MEDS: Mirabegron 50 MG TAB.ER.24H PO (09:16)
[2024-12-11] MEDS: Lidocaine 4 % Patch ADH..PATCH 1 PATCH TRANSDERMA (09:17)
--- NOTE | 2024-12-11 10:23 | P.PNIM_ITS ---
Subjective Subjective Date of Service: 12/11/24 Interval History: ready to start solids Physical Exam 2 Exam: Exam: Appearance: Alert.? Oriented X3.? cvs: rrr, [id number] . res: clear to auscultation ,no rhonchii or wheezing abd: no rebound or guarding ,has epigastric discomfort,colostomy bag at place( clear liquid), bs present. ext pulses present , no cyanosis . neuro: axo3 , nonfocal. Vital Signs: Vital Signs: Last Vital Signs Temp 97.8 F 12/11/24 07:28 Pulse 89 12/11/24 07:28 Resp 16 12/11/24 07:28 BP 104/59 L 12/11/24 07:28 Pulse Ox 93 12/11/24 07:28 O2 Del Method Room Air 12/11/24 07:28 BMI result Body Mass Index 41.4 Objective Data Active Medications Lipase/Protease/Amylase (Lipase/Prot/Amylase 12/38/60k Capsule.) 1 cap PO QID [facility] Last Admin: 12/11/24 09:16 Dose: 1 cap Documented By: ELAINE Azithromycin (Azithromycin 500 Mg Tablet) 500 mg PO Q24H [facility] Last Admin: 12/11/24 08:11 Dose: 500 mg Documented By: ELAINE Bisacodyl (Bisacodyl 5 Mg Tablet.) 10 mg PO BEDTIME [facility] Last Admin: 12/10/24 20:23 Dose: 10 mg Documented By: ELISABETH Capsaicin (Capsaicin 0.025% Cream 60 Gm Tube) 1 appl TOPICAL TID PRN; Protocol PRN Reason: Pain, Moderate(Pain Scale 4-6) Clonazepam (Clonazepam 1 Mg Tablet) 1 mg PO TID [facility] Last Admin: 12/11/24 09:16 Dose: 1 mg Documented By: ELAINE Docusate Sodium (Docusate Sodium 100 Mg Capsule) 100 mg PO BID PRN PRN Reason: Constipation Enoxaparin Sodium (Enoxaparin Sodium 40 Mg/0.4 Ml Syringe) 40 mg SUBCUT Q24H [facility] Last Admin: 12/11/24 09:17 Dose: 40 mg Documented By: ELAINE Hydromorphone HCl (Hydromorphone Hcl 1 Mg/Ml Syringe) 1 mg IVPUSH Q4H PRN; Protocol PRN Reason: Pain, Severe (Pain Scale 7-10) Last Admin: 12/11/24 05:56 Dose: 1 mg Documented By: ANTONIO Hydroxyzine HCl (Hydroxyzine Hcl 25 Mg Tablet) 25 mg PO BEDTIME [facility] Last Admin: 12/10/24 20:23 Dose: 25 mg Documented By: ELISABETH Lactated Ringer's (Lr) 1,000 mls @ 125 mls/hr IVCONT .Q8H [facility] Last Admin: 12/11/24 07:02 Dose: 125 mls/hr Documented By: ELAINE Valproic Acid 250 mg/ Dextrose 52.5 mls @ 52.5 mls/hr IV Q6H [facility] Last Infusion: 12/11/24 07:01 Dose: Infused Documented By: ELAINE Lamotrigine (Lamotrigine 25 Mg Tablet) 50 mg PO BEDTIME [facility] On Hold: 12/10/24 21:00 Last Admin: 12/09/24 21:07 Dose: 50 mg Documented By: HUMBERTO Lamotrigine (Lamotrigine 100 Mg Tablet) 200 mg PO DAILY [facility] On Hold: 12/10/24 03:00 Last Admin: 12/09/24 09:07 Dose: Not Given Documented By: CLARA Non-Admin Reason: NPO Lidocaine (Lidocaine 4 % Patch Adh..Patch) 1 patch TRANSDERMA DAILY [facility]; Protocol Last Admin: 12/11/24 09:17 Dose: 1 patch Documented By: ELAINE Magnesium Oxide (Magnesium Oxide 400 Mg Tablet) 400 mg PO DAILY [facility] Last Admin: 12/11/24 09:17 Dose: 400 mg Documented By: ELAINE Metoclopramide HCl (Metoclopramide Hcl 10 Mg/2 Ml Vial) 10 mg IVPUSH QID [facility] Last Admin: 12/11/24 09:17 Dose: 10 mg Documented By: ELAINE Mirabegron (Mirabegron 50 Mg Tab.Er.24h) 50 mg PO DAILY [facility] Last Admin: 12/11/24 09:16 Dose: 50 mg Documented By: ELAINE Naloxone HCl (Naloxone Hcl 0.4 Mg/Ml Vial) 0.04 mg IVPUSH Q5M PRN PRN Reason: Excessive sedation or RR < 8 Omeprazole (Omeprazole 40 Mg Capsule.) 40 mg PO BID@0630,1630 [facility] Last Admin: 12/11/24 05:53 Dose: 40 mg Documented By: ANTONIO Ondansetron HCl (Ondansetron Hcl 4 Mg/2 Ml Vial) 4 mg IVPUSH Q4H PRN PRN Reason: Nausea and Vomiting Last Admin: 12/11/24 05:56 Dose: 4 mg Documented By: ANTONIO Sodium Chloride (0.9 % Sodium Chloride Flush 3 Ml Syringe) 3 ml IVFLUSH QSHIFT [facility] Last Admin: 12/11/24 07:08 Dose: Not Given Documented By: ELAINE Non-Admin Reason: IV Running Sucralfate (Sucralfate Oral Suspension 1 Gm/10 Ml Oral.Susp) 1 gm PO QIDACHS [facility] Last Admin: 12/11/24 07:06 Dose: 1 gm Documented By: ELAINE Valacyclovir HCl (Valacyclovir Hcl 500 Mg Tablet) 500 mg PO DAILY [facility] Last Admin: 12/11/24 09:16 Dose: 500 mg Documented By: ELAINE Vortioxetine (Vortioxetine Hydrobromide 20 Mg Tablet) 20 mg PO DAILY [facility] Last Admin: 12/11/24 09:17 Dose: 20 mg Documented By: ELAINE Labs 12/11/24 05:43 12/11/24 05:43 Labs: Laboratory Results - last 24 hr 12/11/24 05:43 MCV 79.9 L MCH 26.8 L MCHC 33.5 RDW 14.0 Plt Count 329 MPV 9.8 Absolute Nucleated RBC 0.000 Nucleated RBC % (auto) 0.0 Anion Gap 12 Estim Creat Clear Calc 132.1 Estimated GFR > 60 Random Glucose 101 Calcium 8.4 D Magnesium 1.8 Assessment and Plan (1) Gastroparesis: Status: Acute Plan 44F PMH colostomy due to long history of severe diarrhea alternating constipation/dysmotility, chronic abdominal pain, cholecystectomy, IBS, GERD, interstitial cystitis, seizure disorder, depression/anxiety, occipital neuralgia presented with abdominal pain and nausea and vomiting Abdominal pain intractable nausea and vomiting due to gastroparesis Status post EGD with dilatation of pylorus Advance to solids New wall thickening of the large intestine nonspecific Seizure disorder lamotrigine Mood disorder Continue Klonopin, Ativan Atarax Morbid obese Weight loss DVT prophylaxis with Lovenox Full Code reason for continued hospitalization: awaiting tolerance of po Quality Stroke Does the patient have a stroke diagnosis?: No VTE Prior VTE?: No VTE Risk Level:: Medical - moderate - high VTE Device Contraindication: Treatment Not Indicated VTE Drug Contraindication: N/A - Med Ordered
[2024-12-11] MEDS: 0.9 % Sodium Chloride Flush 3 ML SYRINGE IVFLUSH ×2 (15:37→21:24)
--- NOTE | 2024-12-11 17:05 | MHC.SL.SWA ---
Speech Pathologist Impression: Risk of Aspiration Due to: Dysphasia Diet Status: Liquid Consistency and Strategies for Safe Swallow: Liquid Intake Recommendation: Thin Liquid Intake Strategies: Solid Food Consistency: Dietary Recommendations: follow GI order for advancement to solids Additional Modifications to Solid Foods: Oral Medication Intake: Please contact the pharmacy regarding appropriate crushable or liquid drug formulations that are available whenever modified delivery is recommended. Compensatory Strategies and Precautions to be Taken for Safe Swallow: Supervision While Eating and Drinking for Safe Swallow: None Needed Foods to Avoid: Swallowing Recommended Treatments: Recommendation for Speech: NA:Typical Evaluation Comment: On brief assessment due to current diet restrictions, patient presents with swallow that is WFL. Patient should advance diet to solids pending GI recommendation, no restrictions indicated as related to swallow or swallow function. No further speech/swallow tx indicated. HISTOLOGY SUPERVISOR will discharge order. Frequency/Duration: Date Range for Service Req: Timeline to reassess: Product Marketer Clinican/Clinical Fellow: No Supervisory Statement: I have reviewed and agree with the student/clinical fellow's documentation: N/A Speech Language Pathologist: Essie Villafana M.A., [facility]-HISTOLOGY SUPERVISOR
[2024-12-12 03:09] VITALS: BP 120/69; PULSE 87; RESP 14; TEMP 36; O2SAT 93
[2024-12-12 06:13] LABS: Anion Gap 13 (12-20); Blood Urea Nitrogen 3 mg/dL (9-16); Calcium 8.8 mg/dL (8.4-10.2); Carbon Dioxide 29 mmol/L (22-29); Chloride 101 mmol/L (96-108); Creatinine Clr Calc Pharmacy 128.1; Estimated Glomerular Filt Rate > 60; Potassium 3.6 mmol/L (3.3-5.1); Sodium 139 mmol/L (135-145)
[2024-12-12 06:17] LABS: Hematocrit 36.0 % (37.0-47.0); Hemoglobin 12.3 g/dl (12.0-16.0); Mean Corpuscular HGB Conc 34.2 g/dl (31.0-35.0); Mean Corpuscular Hemoglobin 27.2 pg (27.0-33.0); Mean Corpuscular Volume 79.5 fL (80.0-98.0); NRBC Abs Auto 0.000 X10*3/uL (0.0-0.012); NRBC Pct Auto 0.0 /100WBC (0.0-0.2); Platelet Count 300 X10*3/uL (160-400); Red Blood Count 4.53 X10*6/uL (4.20-5.50); White Blood Count 4.3 X10*3/uL (4.8-10.8)
[2024-12-12 07:56] VITALS: BP 126/58; PULSE 96; RESP 16; TEMP 36.9; O2SAT 96
[2024-12-12] MEDS: Sucralfate Oral Suspension 1 GM/10 ML ORAL.SUSP PO ×2 (08:01→10:28)
[2024-12-12] MEDS: 0.9 % Sodium Chloride Flush 3 ML SYRINGE IVFLUSH (08:05)
[2024-12-12] MEDS: Mirabegron 50 MG TAB.ER.24H PO (08:09)
[2024-12-12] MEDS: Lipase/Prot/Amylase 12/38/60K CAPSULE.DR 1 CAP PO (09:13)
--- NOTE | 2024-12-12 09:43 | P.DS_ITS ---
DS: Providers Provider Date of Service: 12/12/24 Date of admission: 12/07/24 21:59 Date of discharge: 12/12/24 Primary care physician: Caitlin Harding MD Consults: 12/07/24 22:52 Consult to Gastroenterology Routine Consulting Provider: Magno Garcia Reason for consultation: Intractable nausea and vomiting Has provider been notified: No 12/08/24 00:58 Consult to Wound Care Routine Reason for consultation: small skin tear, left to colostomy DS: Diagnosis Discharge Diagnosis (1) Gastroparesis: Status: Acute DS: Summary Hospital Course Hospital Course: from initial hpi: Paula Simmons is a very pleasant with a past medical history significant for status post colostomy due to long history of severe diarrhea alternating with constipation, IBS, GERD, interstitial, seizures, depression/anxiety, occipital neuralgia and interstitial cystitis presents to the emergency department complaining of 5 days' history of nausea and vomiting associated with severe epigastric and right upper quadrant pain. The emesis is nonbloody and bilious. The pain is radiating to the right back. The stool material coming out her colostomy is liquids and drainage. She has been unable to tolerate any fluids or solids. She denied any acute urinary symptoms. She has a history of cholecystectomy. She recently visited [facility] ED for the same symptoms and underwent an abdominal pelvis CT scan that showed finding consistent with colitis however patient has not been having fever. On October 2024, she had a gastric emptying study that came back abnormal. There is no leukocytosis. Five days ago, she was evaluated at [facility] ED for the same symptoms, recieved treatment with Dilaudid, Haldol, IV fluids and Pepcid. She was sent home after tolerating p.o.. She did not report any acute cardiopulmonary symptoms. She mentioned having chronic numbness to all extremities. Also, she has been experiencing her loss without any specific explanation. Paula is very frustrated as her medical issues and symptoms did not get better. She has been seeing experts and unable to tell her what exactly is going on why she does not get better. Three years ago she was not very active woman. She used to participate in marathons and go to the gym. She was referred to see specialist at [facility] but they do not accept her medical insurance. Patient has a history of precancerous uterus lesion status post hysterectomy. In the ED, she was found to have stable vital signs. Blood workup showed WBC 8.0, hemoglobin 13.5 and platelets 442. Differential is normal. There are no electrolyte imbalances. BUN is 11 and creatinine 0.87. Urinalysis is normal. ED tx: Reglan 5 mg IV, Dilaudid 0.5 mg IV, Zofran 4 mg IV, Maalox 30 mL p.o., Pepcid 20 mg IV hospital course: Patient was admitted for intractable abdominal pain nausea and vomiting inability to tolerate p.o. due to gastroparesis. She underwent EGD with dilatation of the pylorus and diet was slowly advanced to liquids and then solids and is now tolerating 25-50% of meals and is able to adequately get nutrition and hydration. Also noted was new wall thickening of the large intestine but this is considered nonspecific and should follow up with Gastroenterology as outpatient. For seizure disorder was continued on lamotrigine. For mood disorder continued on Klonopin, Ativan, Atarax. For mo rbid obesity weight loss recommended. Patient is feeling better and will be discharged home. Time Attestation Discharge Coordination Time (in mins): 35 Quality: Safe Use of Opioids Does Pt have an Active Cancer Diagnosis on the Problem List?: No Quality: Stroke Does the patient have a stroke diagnosis?: No Physical Exam Exam: Exam: Appearance: Alert.? Oriented X3.? cvs: rrr, [id number] . res: clear to auscultation ,no rhonchii or wheezing abd: no rebound or guarding ,has epigastric discomfort,colostomy bag at place( clear liquid), bs present. ext pulses present , no cyanosis . neuro: axo3 , nonfocal. Vital Signs: Vital Signs: Last Vital Signs Temp 98.5 F 12/12/24 07:56 Pulse 96 12/12/24 07:56 Resp 16 12/12/24 07:56 BP 126/58 L 12/12/24 07:56 Pulse Ox 96 12/12/24 07:56 O2 Del Method Room Air 12/12/24 07:56 BMI result Body Mass Index 41.4 DS: Data Data Completed and Pending Completed studies during hospitalization [Text1]: Procedures Bypass Sigmoid Colon to Cutaneous, Open Approach (08/12/24) Drainage of Abdomen Subcutaneous Tissue and Fascia, Percutaneous Approach (08/12/24) Drainage of Large Intestine, Via Natural or Artificial Opening Endoscopic (07/25/24) Excision of Rectum, Via Natural or Artificial Opening Endoscopic, Diagnostic (07/25/24) Excision of Sigmoid Colon, Via Natural or Artificial Opening Endoscopic, D iagnostic (07/25/24) Introduction of Anesthetic Agent into Peripheral Nerves and Plexi, Percutaneous Approach (08/12/24) Pending studies at discharge: Pending at discharge 12/09/24 15:48 Surgical [PTH] Routine Labs on day of discharge: Laboratory Results - last 24 hr 12/12/24 05:13 WBC 4.3 L RBC 4.53 Hgb 12.3 Hct 36.0 L MCV 79.5 L MCH 27.2 MCHC 34.2 RDW 14.6 Plt Count 300 MPV 10.3 Absolute Nucleated RBC 0.000 Nucleated RBC % (auto) 0.0 Sodium 139 Potassium 3.6 Chloride 101 Carbon Dioxide 29 Anion Gap 13 BUN 3 L Creatinine 0.66 Estim Creat Clear Calc 128.1 Estimated GFR > 60 Random Glucose 108 Calcium 8.8 Discharge Plan Discharge Anticipated Discharge Date/Time: 12/12/24 09:38 Patient Disposition: Home, Self-Care Discharge Diagnosis: gastroparesis Referrals: Caitlin Harding MD [Primary Care Provider, Psychiatry] - 1 Week Discharge Medications: New hydromorphone 2 mg tablet 2 mg PO Q6H Qty: 6 0RF Rx Instructions: Partial Fill upon patient request. Continued metoclopramide HCl 5 mg tablet 5 mg PO Q8H PRN (Reason: nausea and vomiting) Qty: 20 0RF Creon 12,000-38,000 -60,000 unit capsule,delayed release(DR/EC) 1 cap PO QID Qty: 120 0RF Rx Instructions: administer with meals and/or snacks -- MAX OF 4 CAPS PER DAY. valacyclovir 500 mg tablet 500 mg PO DAILY Trintellix 20 mg tablet 20 mg PO DAILY lamotrigine 200 mg tablet 200 mg PO DAILY Rx Instructions: 200mg in morning, 25mg at night lamotrigine 25 mg tablet 50 mg PO BEDTIME Rx Instructions: 200mg in morning, 25mg at night docusate sodium [Colace] 100 mg capsule 100 mg PO BID Qty: 60 3RF clonazepam 1 mg tablet,disintegrating 1 mg PO TID pantoprazole 40 mg tablet,delayed release (DR/EC) 40 mg PO DAILY@0630 bisacodyl 5 mg tablet,delayed release (DR/EC) 10 mg PO BEDTIME magnesium oxide 400 mg magnesium capsule 400 mg PO DAILY mirabegron [Myrbetriq] 50 mg tablet extended release 24 hr 50 mg PO DAILY hydroxyzine HCl 25 mg tablet 25 mg PO BEDTIME cholecalciferol (vitamin D3) 125 mcg (5,000 unit) capsule 125 mcg PO DAILY Qty: 90 3RF eszopiclone [Lunesta] 3 mg tablet 3 mg PO BEDTIME prucalopride [Motegrity] 2 mg tablet 2 mg PO DAILY Qty: 30 2RF ondansetron 4 mg tablet,disintegrating 4 mg PO Q8H PRN (Reason: nausea and vomiting) Qty: 30 1RF sucralfate 1 gram tablet 1 g PO BID Qty: 60 3RF esomeprazole magnesium 40 mg capsule,delayed release(DR/EC) 40 mg PO DAILY Qty: 90 5RF Rx Instructions: before meals Discharge Orders: Discharge Order (Routine); Ordered 12/12/24 Ordered By: Mikael Mora Diet: small frequent meals Activity on Discharge: As tolerated Stand Alone Forms: Patient Portal Discharge page Print Language: [place] Care Plan Goals: recovery Health Concerns: gastroparesis Plan of Treatment: small frequent meals Assessment: see above
--- NOTE | 2024-12-12 09:50 | MHC.CM.PN ---
pt dcd home self care
[2024-12-12 10:37] VITALS: BP 125/84; PULSE 100; RESP 18; TEMP 36.8; O2SAT 94
== END 2024-12-12 10:45 | disposition home or self-care (01) | DRG 254 ==
LOC: HO.ED 21:18 → HO.EDOVER 22:25 → HO.S3 23:29
PROVIDERS: Internal Medicine; Physician Assistant; Admitting Provider Internal Medicine; Emergency Provider Student in an Organized Health Care Education/Training Program; PCP Psychiatry & Neurology Psychiatry; Visit Provider Internal Medicine
PROC: 0DJ08ZZ Inspection of Upper Intestinal Tract, Via Natural or Artificial Opening Endoscopic (ICD-10-PCS; CPT 43235; principal; 2024-12-09 15:40)
DX: K31.84 Gastroparesis (principal); E66.01 Morbid (severe) obesity due to excess calories; F32.A Depression, unspecified; K59.09 Other constipation; K29.70 Gastritis, unspecified, without bleeding; K29.80 Duodenitis without bleeding; F41.9 Anxiety disorder, unspecified; Z68.41 Body mass index [BMI] 40.0-44.9, adult; Z71.3 Dietary counseling and surveillance; G40.909 Epilepsy, unspecified, not intractable, without status epilepticus; G47.00 Insomnia, unspecified; F40.00 Agoraphobia, unspecified; F45.22 Body dysmorphic disorder; Z93.3 Colostomy status; Z90.710 Acquired absence of both cervix and uterus; Z91.51 Personal history of suicidal behavior; Z79.899 Other long term (current) drug therapy
CPT/HCPCS: 36415; 80048; 80053; 81003; 83690; 83735; 84100; 84702; 85025; 85027; 85652; 86140; 88305; 88313; 88342; 92610; 93005; 99285; C1726; J1171; J1200; J1308; J1364; J1650; J2003; J2250; J2405; J2470; J2704; J2765; J3360; J3480; J7120

== ENCOUNTER 2024-12-07 21:59 | Outpatient (BNV) | payer OTHER, SELFPAY | END 2024-12-09 11:11 | PROVIDERS: Admitting Provider Internal Medicine; Emergency Provider Student in an Organized Health Care Education/Training Program; PCP Psychiatry & Neurology Psychiatry; Visit Provider Internal Medicine Cardiovascular Disease | DX: Z13.6 Encounter for screening for cardiovascular disorders (principal) | CPT/HCPCS: 93010 ==

== ENCOUNTER → 2024-12-07 21:59 | Outpatient (BNV) | payer OTHER, SELFPAY | PROVIDERS: Admitting Provider Internal Medicine; Emergency Provider Student in an Organized Health Care Education/Training Program; PCP Psychiatry & Neurology Psychiatry; Visit Provider Internal Medicine | DX: R11.2 Nausea with vomiting, unspecified (principal); K31.84 Gastroparesis; K52.9 Noninfective gastroenteritis and colitis, unspecified | CPT/HCPCS: 99231; 99232 ==

== ENCOUNTER → 2024-12-07 21:59 | Outpatient (BNV) | payer OTHER, SELFPAY | PROVIDERS: Admitting Provider Internal Medicine; Emergency Provider Student in an Organized Health Care Education/Training Program; PCP Psychiatry & Neurology Psychiatry; Visit Provider Internal Medicine | DX: R11.2 Nausea with vomiting, unspecified (principal); K29.70 Gastritis, unspecified, without bleeding; K29.80 Duodenitis without bleeding; K31.84 Gastroparesis | CPT/HCPCS: 43239; 43245; 99223 ==

== ENCOUNTER 2024-12-17 14:17 | Outpatient (AMB) | payer OTHER, SELFPAY ==
--- NOTE | 2024-12-17 14:40 | A.OFFVIS_ITS ---
Vital Signs 12/17/24 14:46 Weight 227 lb BP 137/65 Blood Pressure Location Rt brachial Position Sitting Pulse 94 Intake Visit Reasons: 3 mth follow up S/P colostomy creation Intake Note: Patient here for 3mo s/p colostomy creation. ERIC: 09-17-2024 Patient c/o: reports feels gassy all the time. Liquid green noticed as colostomy output. Has to order supplies. Associate Professor Physician Required: No Accompanied by: Self / Same As Patient Allergies propofol Allergy (Intermediate, Verified 12/17/24 14:48) Itching morphine Allergy (Mild, Verified 12/17/24 14:48) Itching Medication List - Last Reconciled 12/17/24 by Jesus Allen MD bisacodyl 10 mg PO BEDTIME cholecalciferol (vitamin D3) 125 mcg PO DAILY clonazepam 1 mg PO TID docusate sodium (Colace) 100 mg PO BID esomeprazole magnesium 40 mg PO DAILY eszopiclone (Lunesta) 3 mg PO BEDTIME hydromorphone 2 mg PO Q6H hydroxyzine HCl 25 mg PO BEDTIME lamotrigine 200 mg PO DAILY lamotrigine 50 mg PO BEDTIME hiyqez-lsmgufgh-lmxprxr 12,000-38,000 -60,000 unit (Creon) 1 cap PO QID magnesium oxide 400 mg PO DAILY metoclopramide HCl 5 mg PO Q8H PRN mirabegron ER (Myrbetriq) 50 mg PO DAILY ondansetron 4 mg PO Q8H PRN pantoprazole 40 mg PO DAILY@0630 prucalopride (Motegrity) 2 mg PO DAILY sucralfate 1 g PO BID valacyclovir 500 mg PO DAILY vortioxetine (Trintellix) 20 mg PO DAILY HPI HPI 3 mth follow up S/P colostomy creation: Details: She is here for follow-up for her colostomy. I had done a diverting sigmoid colostomy for her in view of her chronic planes of diarrhea and constipation. She had incontinence at that time as well She says that she is happy that she had gone for the colostomy says she feels that her bowel movements are her problem anymore However, she also has been having this frequent nausea and vomiting and she has been diagnosed to have gastroparesis as well. She otherwise does not have any complaints with regards to her colostomy. [facility] Medical History History of lumbar puncture (06/13/23) Seizures Hx of Postprocedural seroma of skin and subcutaneous tissue following other procedure Colostomy in place Hx of flexible sigmoidoscopy (07/26/24) Proctosigmoiditis Stricture of sigmoid colon Colon wall thickening Obesity, Class II, BMI 35-39.9 IBS (irritable bowel syndrome) History of colitis Gastric ulcer Interstitial cystitis Occipital neuralgia of right side History of suicidal ideation Anxiety Agoraphobia MDD (major depressive disorder) PTSD (post-traumatic stress disorder) Surgical History History of colon surgery (08/12/24) History of tonsillectomy and adenoidectomy Hx of appendectomy H/O endoscopy (12/09/24) Hx of colonoscopy Hx of section H/O: hysterectomy Hx of cholecystectomy (~12/2022) Family History Father Prostate cancer Maternal Uncle Colon cancer Maternal Grandmother Breast cancer Social History Household Members: Spouse Housing: House Do you presently have visiting 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) Alcohol intake: never 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 Patient Tobacco Use Status: Former Tobacco user Substance Use Type: Marijuana service: No Review of Systems Const Denies chills and Denies fever(s) Card Denies chest pain, Denies dyspnea and Denies dyspnea on exertion Resp Denies cough, Denies dyspnea and Denies dyspnea on exertion GI Details: Has colostomy Denies hematuria Musc Denies back pain and Denies limited range of motion Neuro Denies focal weakness and Denies convulsions Psych Denies depression and Denies mood swings Physical Exam Vital Signs: Last Vital Signs Pulse 94 12/17/24 14:46 BP 137/65 12/17/24 14:46 Const General: comfortable and no acute distress Nutritional Appearance: obese Resp Effort & Inspection: normal respiratory effort Cardio Rate: regular rate GI Other: Colostomy in place, functioning well Palpation (GI): Soft to palpation, not firm, nontender and no guarding Assessment & Plan Assessment & Plan (1) Colostomy in place: Code(s): Z93.3 - Colostomy status Category: Medical Plan: Her stoma is functioning well without any problems. She says that she feels this has helped a lot as she had severe problems with her diarrhea and constipation in the past Her main problem now is that her complaints of frequent nausea and vomiting and she is carrying a diagnosis of gastroparesis. She has been following the vp mobile products for this I explained to her that she may need to be seen by a motility specialist in [place] for options. She was asking about having a jejunostomy tube placed. I told her that at this time in maybe too early for that option. (2) Gastroparesis: Code(s): K31.84 - Gastroparesis Category: Medical Plan: I explained to her that it may be best for her to see a fertility specialist for her GI issues. I am uncertain if she has been tried on erythromycin for promotility at this time. She can follow up with me on a p.r.n. basis. Coding Level of Care Code Est Pt Level 3 (51711) Diagnoses Colostomy in place Z93.3 Gastroparesis K31.84
[2024-12-17 14:46] VITALS: BP 137/65; PULSE 94
--- OUTSIDE RECORDS SUMMARY | 2024-12-17 18:03 | XMS_ITS | Clinical Summary ---
Author Organization [facility] Address [address] [place] [address] Care Team Providers Care Message Broker Developer Name Role Phone Nori Posey MD Primary Care Provider [phone] Allergies Active Allergy Reactions Criticality Noted Date Comments [place] 08/30/2023 Medications Medication Sig Dispensed Refills Start [...] age to complete this topic Care Teams Message Broker Developer Relationship Specialty Start Date End Date Nori Posey MD [address] [place] [id number] PCP - General Internal Medicine 08/01/23
== END 2024-12-17 15:20 | disposition home or self-care (01) ==
PROVIDERS: Visit Provider Surgery
DX: Z93.3 Colostomy status (principal); K31.84 Gastroparesis
CPT/HCPCS: 99213

== ENCOUNTER → 2024-12-17 14:17 | Outpatient (BNVA) | payer OTHER, SELFPAY | PROVIDERS: Visit Provider Surgery | DX: K31.84 Gastroparesis (principal); K52.9 Noninfective gastroenteritis and colitis, unspecified; K21.9 Gastro-esophageal reflux disease without esophagitis; R11.2 Nausea with vomiting, unspecified; R10.84 Generalized abdominal pain; R14.0 Abdominal distension (gaseous); Z93.3 Colostomy status; Z87.19 Personal history of other diseases of the digestive system | CPT/HCPCS: 99212 ==

== ENCOUNTER 2024-12-17 15:20 | Outpatient (AMB) | payer OTHER, SELFPAY ==
[2024-12-17 15:20] VITALS: BP 134/68; PULSE 94; BMI 40.2
--- NOTE | 2024-12-17 15:20 | A.OFFVIS_ITS ---
Vital Signs 12/17/24 15:20 Height 5 ft 3 in Weight 227 lb BMI 40.2 BP 134/68 Blood Pressure Location Rt brachial Position Sitting Pulse 94 Pulse Source Pulse Oximeter Intake Visit Reasons: Progressively worsening sx. N+V, gastroparesis. Intake Note: ESTABLISHED PATIENT for mgmt of GERD, Gastroparesis, abd pain. Chief Complaint; Recently seen in ED for persistence and exacerbation of chronic sx and conditions. Pt states that her sx are only getting worse and is constantly throwing up. Has not been able to maintain a normal diet. Belling Machine Operator Required: No Accompanied by: Self / Same As Patient Allergies propofol Allergy (Intermediate, Verified 12/17/24 15:22) Itching morphine Allergy (Mild, Verified 12/17/24 15:22) Itching HPI HPI Progressively worsening sx. N+V, gastroparesis.: Details: LAST VISIT: 11/24/2024 Inflammatory bowel disease S/P colostomy Colostomy in place History of colitis Nausea Abdominal pain Gastroesophageal reflux disease Postprandial diarrhea Postprandial abdominal bloating Plan Will check for malabsorption issues. Patient will take sucralfate at bedtime instead of famotidine. We will try to send script for Creon and she can take low-dose with meals to help 8 digestion. May use Zofran as needed. Patient reports that it is very helpful. Continue taking Nexium daily. Continue avoiding dietary triggers. Patient can continue current bowel regimen. special event assistant called pharmacy and Motegrity will be ready for patient for tomorrow. I will send patient for upper endoscopy. Significant gastroparesis seen. Patient reports early satiety with solids except for shakes and liquids. Upper endoscopy, patient might need a pyloric dilation, evaluate for gastritis, duodenitis, esophagitis, Barretts. I will see patient after the procedure, sooner on as needed basis. She is agreeable to this plan and verbalizes understanding of instructions. She was given the opportunity to ask questions and all questions answered. ? Thank you for allowing me to participate in her care Orders Vitamin A 11/24/24 K86.89 Zinc 11/24/24 K52.9 Vitamin B2 (Riboflavin) 11/24/24 K74.60 Vitamin B3 (Niacin) 11/24/24 K86.89 Vitamin E 11/24/24 K52.9 Vitamin B6 11/24/24 K52.9 Vitamin B5 (Pantothenic Acid) 11/24/24 K52.9 Magnesium 11/24/24 N18.9 New sucralfate 1 g PO BID 60 tabs 3RF K52.9 iadavg-ndogirqe-anrcltm 12,000-38,000 -60,000 unit (Creon) administer with meals and/or snacks 1 cap PO QID 120 caps 0RF R10.9 Refilled ondansetron 4 mg PO Q8H PRN 30 tabs 1RF nausea and vomiting esomeprazole magnesium 40 mg PO DAILY 90 caps 5RF Discontinued hyoscyamine sulfate Discontinued Reason: Doctor's Order 0.125 mg PO QID PRN 14 tabs 0RF dyspepsia GI CONSULT WITH DR. BRYANT 12/08/2024 HPI Reason for consult: Intractable N/V This is a 43-year-old female with past medical history of depression with previous SI attempts, anxiety, PTSD, agoraphobia, PNES, asthma, chronic abdominal pain/IBS, multiple abdominal surgeries including previous cholecystectomy, hysterectomy, and most recently end colostomy done for severe constipation, who presented to the emergency room for N/V x 5 days. Patient known to GI service for colon dysmotility with hx of recent sigmoid colostomy on behest of patient due to severe constipation. There was also initially question of sigmoid stricture on imaging, on flex sig had no obvious stricture but had significant colon wall edema leading to mild luminal narrow ing. Now coming in for N/V and epigastric abd pain that started last weekend. Was seen in ER on .5 for the same but went back home as she was unsure if she wanted to get admitted. Returned 12/07 with same symptoms and concern for dehydration. Reports burning epigastric pain which gets worse with eating/drinking anything with severe N/V. Reports 5-6 emesis even when she has not eaten anything. She recently had a GES that shows gastroparesis. Pt also reports that she frequently loses bladder control even without any mechanical stress like coughing/sneezing etc. Plan Patient with intractable nausea and vomiting x 5 days. Differential include infectious gastroenteritis versus PUD versus gastroparesis flare. Plan: -clear liquids as tolerated -12 lead EKG, if QTC normal, start erythromycin 250 t.i.d. x 2 days -Will schedule for EGD tmrw -NPO after MN -pt with sx of diffuse upper and lower GI dysmotility -- small fiber neuropathy (though typically also assoc with cutaneous manifestations) and autonomic neuropathy (since also has bowel and bladder issues) also in differential and eventually should be referred to a dedicated center for testing ([facility] program) as outpatient. UPPER ENDOSCOPY EGD Findings:? * Esophagus:? Normal mucosa noted in the entire esophagus. The Z line was at 38 cm. Lower esophagus forceps biopsies were obtained for histology. * Stomach:? Mild erythema noted in antrum. Retroflexion was performed in the cardia. Random cold forceps gastric biopsies were taken to rule out H pylori. A through the scope balloon was inserted through the biopsy channel and advanced to the pylorus. The pyloric channel was dilated incrementally from 18-20 mm without any resistance felt. No heme or tear was noted at the end of dilation. * Duodenum:? Erythema, edema and a few erosions noted in the duodenal bulb and 1st portion of the duodenum. Cold forceps biopsies were taken for histology. EGD Impressions:? * Normal esophagus (biopsy) * Gastritis (biopsy) * Duodenitis (biopsy)?? Recommendations:?? * Empiric dilation of pyloric channel performed for reported gastroparesis. * Continue PPI therapy. Can be switched to PO. * Switch erythromycin to PO and taper off over the next 3 days. * Add carafate 10 ml TID x 14 days. * If patient continues to have persistent nausea and vomiting over the next 1-2 days, consider central source. Consider head imaging (CT head from August was without contrast). TODAY'S VISIT Patient is here today for requested visit. Patient just saw General surgery for follow-up appointment. Patient was discussing G-tube as she is continuing to have nausea. Patient reports that no matter what she puts in her mouth she gets very nauseous. Patient still is not moving her bowels well. Taking Motegrity and empties her bag only once a day. Although patient also is not eating as much as she is afraid that she will be vomiting. Patient reports epigastric pain. Patient denies any other symptoms. Patient saw Dr. Sanchez at [facility] thinking that he was motility specialist. We are trying to refer patient to [facility], however patient was told that they are unable to take her insurance. We will work on getting her to motility specialist as soon as we can. paperhanger assistant will work on looking which providers take her insurance [facility] Medical History History of lumbar puncture (06/13/23) Seizures Hx of Postprocedural seroma of skin and subcutaneous tissue following other procedure Colostomy in place Hx of flexible sigmoidoscopy (07/26/24) Proctosigmoiditis Stricture of sigmoid colon Colon wall thickening Obesity, Class II, BMI 35-39.9 IBS (irritable bowel syndrome) History of colitis Gastric ulcer Interstitial cystitis Occipital neuralgia of right side History of suicidal ideation Anxiety Agoraphobia MDD (major depressive disorder) PTSD (post-traumatic stress disorder) Surgical History History of colon surgery (08/12/24) History of tonsillectomy and adenoidectomy Hx of appendectomy H/O endoscopy (12/09/24) Hx of colonoscopy Hx of section H/O: hysterectomy Hx of cholecystectomy (~12/2022) Family History Father Prostate cancer Maternal Uncle Colon cancer Maternal Grandmother Breast cancer Social History Household Members: Spouse Housing: House Do you presently have visiting 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) Alcohol intake: never 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 Patient Tobacco Use Status: Former Tobacco user Substance Use Type: Marijuana service: No Review of Systems Const Denies weight gain and Denies weight loss ENT Reports no additional complaints, Denies dysphagia and Denies odynophagia Card Reports no additional complaints Resp Reports no additional complaints GI Reports abdominal pain, Denies belching, Denies melena, Reports bloating, Denies change in bowel habits, Denies dysphagia, Denies excessive flatus, Denies dyspepsia, Denies heartburn, Denies diarrhea, Denies loose stools, Reports nausea, Denies odynophagia and Denies vomiting Reports no additional complaints Musc Reports no additional complaints Neuro Reports no additional complaints Psych Reports no additional complaints Endo Reports no additional complaints Physical Exam Vital Signs: Last Vital Signs Pulse 94 12/17/24 15:20 BP 134/68 12/17/24 15:20 BMI result Body Mass Index 40.2 Const General: comfortable and no acute distress Orientation/consciousness: patient oriented x3 Resp Effort & Inspection: normal respiratory effort Cardio Rate: regular rate GI Other: Midline incision well healed, colostomy with good output Palpation (GI): Soft to palpation, not firm, nontender and no guarding Neuro General: patient oriented x3 Psych Appearance: grossly normal Mental Status: mental status grossly normal Assessment & Plan Assessment & Plan (1) Gastroparesis: Code(s): K31.84 - Gastroparesis Category: Medical (2) Nausea & vomiting: Code(s): R11.2 - Nausea with vomiting, unspecified Category: Medical Qualifiers: Vomiting type: unspecified Qualified Code(s): R11.2 - Nausea with vomiting, unspecified (3) Colitis: Code(s): K52.9 - Noninfective gastroenteritis and colitis, unspecified Category: Medical (4) Colostomy in place: Code(s): Z93.3 - Colostomy status Category: Medical (5) S/P colostomy: Code(s): Z93.3 - Colostomy status Category: Surgical (6) History of colitis: Code(s): Z87.19 - Personal history of other diseases of the digestive system Category: Medical (7) Abdominal pain: Code(s): R10.9 - Unspecified abdominal pain Category: Medical Qualifiers: Abdominal location: generalized Qualified Code(s): R10.84 - Generalized abdominal pain (8) Gastroesophageal reflux disease: Code(s): K21.9 - Gastro-esophageal reflux disease without esophagitis Qualifiers: Esophagitis presence: esophagitis presence not specified Qualified Code(s): K21.9 - Gastro-esophageal reflux disease without esophagitis (9) Postprandial diarrhea: Code(s): K52.9 - Noninfective gastroenteritis and colitis, unspecified (10) Postprandial abdominal bloating: Code(s): R14.0 - Abdominal distension (gaseous) Plan Patient will continue Motegrity, can take Dulcolax to help if only emptying her bag once a day. Increase fluid intake. Small meals and more often. Patient will start taking Phenergan suppository and will call the office if she will continue to have nausea. I will send her for CT of the head to rule out other source of her nausea. May increase Phenergan suppository to 25 if some relief with the small dose. Patient will be referred to motility specialist in [place]. Please coordinate with her insurance to find which provider except her insurance. I will see patient in 2-3 months. She will call our office if she will have any GI concerning symptoms. She is agreeable to this plan and verbalizes understanding of instructions. She was given the opportunity to ask questions and all questions answered. Thank you for allowing me to participate in her care Coding Level of Care Code Est Pt Level 5 (64013) Complex EM visit Add On G2211 Diagnoses Gastroparesis K31.84 Nausea & vomiting R11.2 Vomiting type: unspecified Colitis K52.[address] Z93.3 S/P colostomy Z93.3 History of colitis Z87.19 Generalized abdominal pain R10.84 Abdominal location: generalized Gastroesophageal reflux disease, unspecified whether esophagitis present K21.9 Esophagitis presence: esophagitis presence not specified Postprandial diarrhea K52.9 Postprandial abdominal bloating R14.0 Time Spent (min) 50 Comment 30 minutes spent with patient and additional 20 minutes spent reviewing her records
== END 2024-12-17 16:22 | disposition home or self-care (01) ==
PROVIDERS: Visit Provider Nurse Practitioner Family
DX: Z93.3 Colostomy status (principal); K31.84 Gastroparesis; R11.2 Nausea with vomiting, unspecified; K52.9 Noninfective gastroenteritis and colitis, unspecified; Z87.19 Personal history of other diseases of the digestive system; R10.84 Generalized abdominal pain; K21.9 Gastro-esophageal reflux disease without esophagitis; R14.0 Abdominal distension (gaseous)
CPT/HCPCS: 99215

== ENCOUNTER 2024-12-21 00:17 | Inpatient (IN) | payer OTHER, SELFPAY ==
--- OUTSIDE RECORDS SUMMARY | 2024-01-02 10:45 | XMS_ITS | Encounter Summary ---
Author Organization [facility] Address [address] [place] [address] Care Team Providers Care Hrbp Name Role Phone Nori Posey MD Primary Care Provider [phone] Encounter Details Date Type Department Care Team (Late st Contact Info) Description 01/02/2024 10:45 AM EDT Hospital Encounter TH HISTORIC ENCOUNTERS [facility] ONLY Yossi Marina MD [address] [place] [address] Social History Tobacco Use Types Packs/Day Years [...] home since Sunday. Still has a black [place] in visual field of L eye. Still [...] ambulation ?? 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 The majority of the actual vrua-eu-ortx visit was spent counseling the patient with respect to the current neurological picture. Yossi Marina MD documented in this encounter Plan of Treatment Upcoming Encounters Date Type Department Care Team (Late st Contact Info) Description 03/24/2025 11:30 AM EST [facility] [address] [place], [place] [phone] Janet Harding MD [address] [place], [place] 03/31/2025 11:00 AM EST Office Visit [facility] [place] [address] [facility] [address] [place] [address] Rocío Watkins PA [address] [place] [address] documented as of this encounter Visit Diagnoses Not on filedocumented in this encounter Care Teams Hrbp Relationship Specialty Start Date End Date Nori Posey MD PCP - General 01/30/23 04/22/24 documented as of this encounter
[2024-12-21] VITALS (9 sets, daily range): BP systolic 99–145; BP diastolic 56–118; PULSE 70–107; RESP 12–20; TEMP 36–37.1; O2SAT 94–98; BMI 39.1; BMI 39.2
--- NOTE | ~2024-12-21 | CT_ITS ---
CLINICAL HISTORY: abd pain epgastric CT abdomen and pelvis with contrast Comparison: CT - CT ABDOMEN PELVIS W IV CON - 12/21/24 02:18 EDT Findings: No consolidation or effusion. Cholecystectomy. Abdominal solid organs unremarkable. No urolithiasis. No bowel obstruction, pneumoperitoneum, or pneumatosis. Mesenteric vessels patent. Left lower quadrant ostomy. Hysterectomy. Ovaries unremarkable. The appendix is not identified. No acute fracture. IMPRESSION: No acute findings. This document has been electronically signed by: Deisy Santiago MD on 12/21/2024 03:42:04
--- NOTE | ~2024-12-21 | XR_ITS ---
CLINICAL HISTORY: sob 1 view chest x-ray Comparison: None provided Findings: Low lung volumes with mild bibasilar atelectasis/pneumonitis. No lobar consolidation. No pneumothorax or pleural effusion in this portable image. Cardiac silhouette within normal limits for AP technique. Mild degenerative changes of the imaged right AC joint. IMPRESSION: Low lung volumes with mild bibasilar atelectasis This document has been electronically signed by: Deshaun Steiner MD on 12/21/2024 02:39:32
--- NOTE | ~2024-12-21 | US_ITS ---
CLINICAL HISTORY: severe pain, CT neg for acute findings --- Additional Notes or Special Instructions: EPIGASTRIC + RUQ PAIN, H X CHOLECYSTECTOMY US abdomen, limited. COMPARISON: CT abdomen and pelvis dated 12/21/24 at 02:25 EDT Technique: Real time sonographic imaging, including color-flow imaging, was performed by the manufacturing quality technician. Multiple underwriting sales representative static images were saved for review. FINDINGS: The visualized portions of the pancreas appear normal. The liver has diffusely increased echogenicity. The main portal vein is antegrade. Liver, right lobe size: 15.1 cm, normal. Status post cholecystectomy. Common bile duct: 5 mm, normal. Right kidney: Cortical medullary differentiation is maintained. Normal color flow by Doppler. No calculus or focal parenchymal abnormality identified. No hydronephrosis. Right kidney length: 10.2 cm, normal No free intraperitoneal fluid identified. IMPRESSION: 1. No cause for patient's symptoms identified. No evidence of right renal obstruction. This document has been electronically signed by: Mark Coffey MD on 12/22/2024 19:34:49
--- NOTE | 2024-12-21 00:40 | ECG_ITS ---
Test Reason : CP Blood Pressure : */* mmHG Vent. Rate : 133 BPM Atrial Rate : 133 BPM P-R Int : 130 ms QRS Dur : 80 ms QT Int : 298 ms P-R-T Axes : 68 62 43 degrees QTcB Int : 443 ms Sinus tachycardia Nonspecific ST and T wave abnormality Abnormal ECG When compared with ECG of 09-Dec-2024 11:11, No significant change was found Referred By: Generic ED Physician Electronically Signed By: YVES KLEIN
--- NOTE | 2024-12-21 00:55 | MHC.EDTECH ---
Patient brought into room, patient was changed into hospital attire, placed on the surveillance system monitor, coroner technicianYaneli Shah assisted with EKG, pt is having allot of pain at this time, RN at bedside,unable to obtained a urine at this time, Call morales in reach
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
[2024-12-21 01:20] LABS: MANUAL DIFF FLAG NO
[2024-12-21 01:21] LABS: Hematocrit 40.2 % (37.0-47.0); Hemoglobin 13.5 g/dl (12.0-16.0); Imm Gran Abs Auto 0.02 X10*3/uL (0.00-0.03); Imm Gran Pct Auto 0.2 % (0.0-0.4); Lymphocytes Absolute Auto 3.5 X10*3/uL (1.2-4.9); Mean Corpuscular HGB Conc 33.6 g/dl (31.0-35.0); Mean Corpuscular Hemoglobin 26.7 pg (27.0-33.0); Mean Corpuscular Volume 79.4 fL (80.0-98.0); NRBC Abs Auto 0.000 X10*3/uL (0.0-0.012); NRBC Pct Auto 0.0 /100WBC (0.0-0.2); Platelet Count 437 X10*3/uL (160-400); Red Blood Count 5.06 X10*6/uL (4.20-5.50); White Blood Count 9.6 X10*3/uL (4.8-10.8)
--- OUTSIDE RECORDS SUMMARY | 2024-12-21 01:31 | XMS_ITS | Clinical Summary ---
Author Organization [employer] [facility] Address [address] [place] [address] Care Team Providers Care [employer] Law Clerk Name Role Phone Nori Posey MD Primary Care Provider [phone] Allergies Active Allergy Reactions Criticality Noted Date Comments [place] 08/30/2023 Medications Medication Sig Dispensed Refills Start [...] age to complete this topic Care Teams [employer] Law Clerk Relationship Specialty Start Date End Date Nori Posey MD [address] [place] [id number] PCP - General Internal Medicine 08/01/23
--- OUTSIDE RECORDS SUMMARY | 2024-12-21 01:31 | XMS_ITS | Clinical Summary ---
Author Organization [address] [facility] Address [address] [place] [address] Phone Care Team Providers Care Residential Direct Support Professional Name Role Phone Janet Harding MD Primary [...] Noted Date Diagnosed Date Colostomy in place ([facility] V24, [facility] V28) Class 1 obesity 11/24/2024 Internal hemorrhoid [...] 2:40 PM EDT Consult Gastroenterology - [address] [phone] Julian Sanchez MD Slow transit constipation (Primary Dx); Gastroparesis 2024 Telephone Internal Medicine - [facility] [address] [place] [address] Janet Harding MD 10/29/2024 8:36 AM EDT - 10/29/2024 11:59 PM EDT Hospital Encounter [facility] MRI [address] [place] [address] Gait abnormality; Migraine without status migrainosus, not intractable, unspecified migraine type Discharge Disposition: Home or Self Care 10/29/2024 8:29 AM EDT - 10/29/2024 11:59 PM EDT Hospital Encounter [facility] MRI [address] [place] [address] Gait abnormality; Migraine without status migrainosus, not intractable, unspecified migraine type Discharge Disposition: Home or Self Care 09/26/2024 12:30 PM EDT Office Visit [facility] [address] [facility] [address] [place] [address] Yossi Marina MD Gait abnormality (Primary Dx); Migraine without status migrainosus, not intractable, unspecified migraine type; Seizure ([facility] V24, [facility] V28); Seizure-like activity ([facility] V24, [facility] V28) from Last 3 Months Immunizations Name Administration Dates Next Due Tdap Tetanus diptheria acell ular pertussis (Boostrix; Adacel) 7yo and older 05/04/2023 Surgical History Surgery Date Site/Laterality Comments CHOLECYSTECTOMY PROCEDURE: [place] LAPAROSCOPY SURG CHOLECYSTECTOMY HYSTERECTOMY 2014 PROCEDURE: HISTORICAL [...] stress disorder) Suicide and self-inflicted i njury ([facility] V24, [facility] V28) DX:Suicide and self-inflict ed injury (HCC) [...] DX:Guaiac positive stools Hematuria DX:Hematuria Uterine cancer (CMS/HCC V24, CMS/HCC V28) 2014 DX:Uterine cancer (HCC) Interstitial cystitis DX:Interst itial cystitis [...] AM EST [facility] Visit [facility] [address] [facility] [place] [phone] Janet Harding MD [address] [place], [place] 03/31/2025 11:00 AM EST Office Visit [facility] [address] [place] [id number] Rocío Watkins PA [address] [place] [address] Health Maintenance Due Date Last Done Comments [...] - Td or Tdap) 05/04/2033 05/04/2023, 12/16/2012 RSV Immunization Adult Patients (1 - 1-dose 75+ series) 2056 Hepatitis C Screening Completed 03/06/2022 HIB Vaccines [...] Name Priority Date/Time Associated Diagnosis Comments EXTERNAL CLINICAL LAB 12/08/2024 EXTERNAL NUC MED REPORT 11/12/2024 MR BRAIN [...] Relevant to Health Maintenance Results * External clinical lab (12/08/2024) Provider [facility] LAB BLOOD ORDERABLES Fin al Result * External Nuc Med Report (11/12/2024) Anatomical Region Laterality Modality Nuclear Medicine Provider [facility] IMG NM PROCEDURES Final Result * MR [...] Signed Date: 10/29/2024 15:57 ET Workstation ID: [id number] Transcribed By: Self Edit Transcribed Date: 10/29/2024 [...] Signed Date: 10/29/2024 15:57 ET Workstation ID: [id number] Transcribed By: Self Edit Transcribed Date: 10/29/2024 15:48 ET Yossi Marina MD [facility] [place] MRI PROCEDURES Final Result * MR Cervical [...] Signed Date: 10/29/2024 16:00 ET Workstation ID: [id number] Transcribed By: Self Edit Transcribed Date: 10/29/2024 [...] Signed Date: 10/29/2024 16:00 ET Workstation ID: [id number] Transcribed By: Self Edit Transcribed Date: 10/29/2024 [...] AM EST Narrative 06/05/2022 11:27 AM EST Diagnostic Imaging Department [address] [place] [address] Patient: LUIS REDDPAULA D.O.B./Age/Sex: 1980 - 41 - F Unit#: [id number] Location/Status: SPDIMAM/REG CLI Mnemonic/Ordering Site: DIGSC/SPMAM Ordering Physician: VIDAL GARY DO Tay Screening Digital - 06/05/22 - 854 EXAM: [facility] Screening Digital EXAM DATE AND TIME: 06/05/2022 8:56 AM HISTORY: Screening. Baseline exam. Maternal grandmother had breast carcinoma. COMPARISON: No comparison imaging. TECHNIQUE: CC and MLO views of both breasts were obtained using full field digital mammography. Bilateral digital breast tomosynthesis was performed in the MLO projection. Computer aided detection with [employer] 7.2-H and Faves 3D 3.1 was employed. TISSUE DENSITY: b. [...] Routine screening mammogram BILATERAL in 1 year. 62475, 11468 3341F, 7025F Dictating Physician: KIYA MYLES MD Electronically Signed by: KIYA MYLES MD Dic Date/Time: 06/05/22 1126 Sign date/Time: 06/05/22 112 Procedure Note Kiya Myles MD - 05/04/2023 Diagnostic Imaging Department [address] [place] [address] Patient: PAULA JULES/Age/Sex: 1980 - 41 - F Unit#: [id number] Location/Status: SPDIMAM/REG CLI Mnemonic/Ordering Site: [facility] Ordering Physician: VIDAL GARY DO Tay Screening Digital - 06/05/22 - 854 EXAM: Tay Screening Digital EXAM DATE AND TIME: 06/05/2022 8:56 AM HISTORY: Screening. Baseline exam. Maternal grandmother had breastcarcinoma. COMPARISON: No comparison imaging. TECHNIQUE: CC and MLO views of both breasts were obtained using fullfield digital mammography. Bilateral digital breast tomosynthesis was performedin the MLO projection. Computer aided detection with [employer] 7.2-H andFaves 3D 3.1 was employed. TISSUE DENSITY: b. [...] Routine screening mammogram BILATERAL in 1 year. 32214, 28705 3341F, 7025F Dictating Physician: KIYA MYLES MD [...] Maintenance Insurance [facility] [employer] Care Teams Residential Direct Support Professional Relationship Specialty Start Date End Date Janet Harding MD [address] [facility] [place] PCP - General Internal Medicine 08/04/24
[2024-12-21 01:39] LABS: Alanine Aminotransferase 31 U/L (0-31); Albumin Level 4.7 g/dL (3.5-5.0); Alkaline Phosphatase 100 U/L (39-117); Anion Gap 15 (12-20); Aspartate Amino Transferase 33 U/L (5-31); Blood Urea Nitrogen 13 mg/dL (9-16); Calcium 9.5 mg/dL (8.4-10.2); Carbon Dioxide 23 mmol/L (22-29); Chloride 106 mmol/L (96-108); Creatinine Clr Calc Pharmacy 96.3; Estimated Glomerular Filt Rate > 60; Lipase 27 U/L (8-78); Magnesium 2.2 mg/dL (1.6-2.6); Potassium 4.0 mmol/L (3.3-5.1); Sodium 140 mmol/L (135-145); Total Protein 8.2 g/dL (6.5-8.0)
[2024-12-21 01:41] LABS: Troponin-I High Sensitivity < 2.7 ng/L (<3.5-17.0)
--- NOTE | 2024-12-21 01:49 | PC.NURSE ---
Pt arrived to ED with extreme epigastric abdominal pain. Iv attempted to place but unsuccessful. US guided #20 placed in L-upper cephalic vein. Pt labs drawn and medicated with IV zofran and dilaudid as ordered. IV fluids running at this time.
[2024-12-21] MEDS: diazePAM 10 MG/2 ML CARTRIDGE 5 MG IVPUSH (02:08)
[2024-12-21] MEDS: iohexoL 350 MG/ML 100 ML INFUS..BTL 85 ML IV (02:31)
--- NOTE | 2024-12-21 04:50 | PM.IMHP ---
History of Present Illness Date of Service: 12/21/24 Attending physician on admission: Jayden Solitario Chief Complaint: abdominal pain Patient is a 44-year-old female with past medical history colitis with recent colostomy, Alopecia, IBS, interstitial cystitis, occipital neuralgia of the right side, epidural abscess L2-L5, chronic pain, brain lesions (told it is not MS), seizures (last sz 4 months ago), hystrectomy for hyperplasia and risk for 0 cancer, MDD, PTSD presents to ED today after experiencing intractable abdominal pain, 10/10 after eating breakfast this morning patient also has a associated gastroparesis with persistent nausea and vomiting. Patient states it has gotten to the point that it is virtually impossible for her to eat solids. Patient has lost 9 lb in the last 2 weeks. Patient has transitioned to ensure and can tolerate the ensure regularly. Patient also states the stool in her colostomy has been more green in color. Patient is not having any fever, chills, night sweats and is reporting no chest pain or shortness of breath at rest. Patient reports ongoing alopecia and hair loss with no known explanation. Patient states the intermittent pain, nausea and gastroparesis has been ongoing for months since her colostomy has been placed. Some of patient's symptoms started 3 years ago after she had her gallbladder removed. Patient states colostomy was placed electively for chronic diarrhea and constipation issues related to IBS. There was thoughts that patient has sigmoid stricture but this was ruled out during surgery for colostomy. Patient is still follows with Dr. Allen. Patient has profound weakness in lower extremities with limited sensation but this is not new. Patient states she normally does not have sense or urge to void and has been experiencing this for the last 3 years. Patient has been working with PT and is now using a walker but prior was wheelchair-bound. Patient states she has follow with neurology for her seizures and also brain lesions and has been told that she does not have MS. In addition patient underwent a lumbar puncture in the past and has a chronic epidural cyst secondary to lumbar puncture with no evidence of infection. Workup in the ER noted CT scan of the abdomen and pelvis negative for any acute findings. Patient's labs unremarkable noting normal LFTs, lactic acid, T bilirubin, H and H and patient does not have a leukocytosis. Stool panel has been requested. UA appears Patient has been trying to get to a claim approver specialist or gastro neuro specialist at [facility] and/or [facility] but neither facility takes her current insurance. Patient can not change her insurance until January of 2025. Patient also has been considering a 2nd opinion for her neurological needs. Patient has not been able to find a neurologist outside the system that will accept her insurance. Review of Systems Review of Systems: Patient reports abdominal pain 7/10, 10/10 on arrival. Patient has been receiving Dilaudid with good effect. Patient reports ongoing nausea but no current vomiting. Patient denies any chest pain or shortness of breath at rest. Patient denies any headaches or visual changes. Patient has noted alopecia which has persisted over the last 3 years with no obvious explanation. Patient has decreased strength in lower extremities and limited sensation in all extremities which has been ongoing for the last 3 years as well. Patient has been working with physical therapy and improved going from a wheelchair to a walker. Yes all other systems are reviewed and are negative PMFSH Medical History History of lumbar puncture (06/13/23) Seizures Hx of Postprocedural seroma of skin and subcutaneous tissue following other procedure Colostomy in place Hx of flexible sigmoidoscopy (07/26/24) Proctosigmoiditis Stricture of sigmoid colon Colon wall thickening Obesity, Class II, BMI 35-39.9 IBS (irritable bowel syndrome) History of colitis Gastric ulcer Interstitial cystitis Occipital neuralgia of right side History of suicidal ideation Anxiety Agoraphobia MDD (major depressive disorder) PTSD (post-traumatic stress disorder) Cognitive capacity: Alert and orientated x3 Functional capacity: uses cane/walker Patient : No (HCG negative) Family History Father Prostate cancer Maternal Uncle Colon cancer Maternal Grandmother Breast cancer Surgical History History of colon surgery (08/12/24) History of tonsillectomy and adenoidectomy Hx of appendectomy H/O endoscopy (12/09/24) Hx of colonoscopy Hx of section H/O: hysterectomy Hx of cholecystectomy (~12/2022) Social History (Reviewed 09/21/25 @ 05:55 by Deann Gonsalez [facility] Members: Spouse Housing: House Do you presently have visiting nurse or other home services: Yes ([employer]) Alcohol intake: never 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 Patient Tobacco Use Status: Former Tobacco user Substance Use Type: Marijuana service: No Ebola Risk: Travel/Contact With Anyone From Affected Area/s: No Has Patient Experienced Ebola Symptoms: No Meds Allergies Allergy/AdvReac Type Severity Reaction Status Date / Time propofol Allergy Intermediate Itching Verified 12/21/24 00:37 morphine Allergy Mild Itching Verified 12/21/24 00:37 Home Medications ?Medication ?Instructions ?Recorded ?Confirmed ?Last Taken ?Type lamotrigine 200 mg tablet 200 mg PO DAILY 01/02/23 12/17/24 12/06/24 History valacyclovir 500 mg tablet 500 mg PO DAILY 01/02/23 12/17/24 12/06/24 History vortioxetine 20 mg tablet 20 mg PO DAILY 01/02/23 12/17/24 12/06/24 History (Trintellix) hydroxyzine HCl 25 mg tablet 25 mg PO BEDTIME 01/08/24 12/17/24 12/06/24 History lamotrigine 25 mg tablet 50 mg PO BEDTIME 01/08/24 12/17/24 12/06/24 History bisacodyl 5 mg tablet,delayed 10 mg PO BEDTIME 07/25/24 12/17/24 12/06/24 History release magnesium oxide 400 mg PO DAILY 07/25/24 12/17/24 12/06/24 History mirabegron 50 mg tablet,extended 50 mg PO DAILY 07/25/24 12/17/24 12/06/24 History release 24 hr (Myrbetriq) eszopiclone 3 mg tablet (Lunesta) 3 mg PO BEDTIME 08/06/24 12/17/24 12/06/24 History clonazepam 1 mg disintegrating 1 mg PO TID 12/08/24 12/17/24 12/06/24 History tablet pantoprazole 40 mg tablet,delayed 40 mg PO DAILY@0630 12/08/24 12/17/24 12/06/24 History release Physical Exam Vital Signs and Narrative: Vital Signs: Last Vital Signs Temp 98.0 F 12/21/24 04:00 Pulse 75 12/21/24 04:00 Resp 14 12/21/24 04:00 BP 107/59 L 12/21/24 04:00 Pulse Ox 95 12/21/24 04:00 O2 Del Method Room Air 12/21/24 04:00 BMI result Body Mass Index 39.1 Alert and orientated X3, able to give good history. Neuro: CN II-X11 intact, no deficits, visual acuity intact EYES: PERRLA, EOM intact, sclerae nonicteric ENT: hearing intact, no issues with swallowing, uvula midline, lips dry, nares patent no epistaxis Cardiac: S1 S2 RRR, no murmur, no JVD, no edema in Lower ext Pulmonary: lungs clear to auscultation B Abdominal: BS hypoactive in all 4 quadrants, no guarding, tenderness, rebounding, noted distention, colostomy intact stoma appears pink and healthy MSK: strength 2-3/5 lower extremities , 4/5 BUE : no CVA tenderness no bladder distension Extremities: no edema in lower extremities, PT and DP pulses palpable +2 Psych: mood stable, judgement and insight good Skin: No new rashes or lesions Results Labs 12/21/24 05:06 12/21/24 05:06 Labs: Laboratory Results - last 24 hr 12/21/24 01:16 MCV 79.4 L MCH 26.7 L MCHC 33.6 RDW 14.1 Plt Count 437 H D MPV 9.7 Immature Gran % (Auto) 0.2 Neut % (Auto) 55.9 Lymph % (Auto) 36.0 Bollinger % (Auto) 6.4 Eos % (Auto) 0.9 Baso % (Auto) 0.6 Lymph # (Auto) 3.5 Bollinger # (Auto) 0.6 Eos # (Auto) 0.1 Baso # (Auto) 0.1 Abs Immat Gran (auto) 0.02 Absolute Neuts (auto) 5.4 Absolute Nucleated RBC 0.000 Nucleated RBC % (auto) 0.0 Anion Gap 15 Estim Creat Clear Calc 96.3 Estimated GFR > 60 Random Glucose 105 Calcium 9.5 D Magnesium 2.2 Total Bilirubin 0.4 Direct Bilirubin 0.1 AST 33 H ALT 31 Alkaline Phosphatase 100 Troponin I High Sens < 2.7 Total Protein 8.2 H Albumin 4.7 Lipase 27 Beta HCG, Quant < 2 ECG Attestation: I personally reviewed and interpreted this ECG as follows: (ST ) Prior ECG tracings: available for review Imaging Radiologist's Impressions: CT ABD PELVIS Findings: No consolidation or effusion. Cholecystectomy. Abdominal solid organs unremarkable. No urolithiasis. No bowel obstruction, pneumoperitoneum, or pneumatosis. Mesenteric vessels patent. Left lower quadrant ostomy. Hysterectomy. Ovaries unremarkable. The appendix is not identified. No acute fracture. IMPRESSION: No acute findings. Assessment and Plan (1) Intractable abdominal pain: Status: Acute (2) Gastroparesis: Status: Acute Plan Patient is a 44-year-old female with past medical history colitis with recent colostomy, Alopecia, IBS, interstitial cystitis, occipital neuralgia of the right side, epidural cyst L2-L5, chronic pain, brain lesions (told it is not MS), seizures (last sz 4 months ago), hystrectomy for hyperplasia and risk for 0 cancer, MDD, PTSD presents to ED today after experiencing intractable abdominal pain, 10/10 after eating breakfast this morning patient also has a associated gastroparesis with persistent nausea and vomiting. Patient states it has gotten to the point that it is virtually impossible for her to eat solids. Patient has lost 9 lb in the last 2 weeks. Intractable abdominal pain CT scan negative for any acute findings Abdominal ultrasound ordered GI consulted Colostomy patent no current indication for surgical intervention or consultation Dilaudid PRN NPO for bowel rest Gastroparesis Reglan PRN, Qtc [phone] NPO No indication for NG tube at this time nutritional consult placed, consider PPN, patient can not tolerate solid food, has been using ensures Colostomy placed July 2024 Patient reported green stool for output Stool panel is pending No indication for antibiotics currently Colostomy care ordered Seizure history Patient normally takes Lamictal Patient has been noting capsules in her colostomy bag, patient reassured that the medications being absorbed We will attempt to check Lamictal level for reassurance Last seizure 4 months ago Weakness with limited mobility PT eval requested Neurological consultation if indicated GERD/esophagitis Protonix IV Anxiety/MDD/PTSD Continue lamotrigine Clonazepam Morbid obesity Nutritional consultation placed DVT prophylaxis: Lovenox Med rec pending Full Code status Quality Stroke Does the patient have a stroke diagnosis?: No Reason for No Anti-thrombotic by Day Two: N/A - Med Ordered VTE Prior VTE?: No VTE Risk Level:: Medical - moderate - high VTE Device Contraindication: N/A - Device Ordered VTE Drug Contraindication: N/A - Med Ordered
[2024-12-21 05:11] LABS: Hematocrit 35.4 % (37.0-47.0); Hemoglobin 11.8 g/dl (12.0-16.0); Imm Gran Abs Auto 0.02 X10*3/uL (0.00-0.03); Imm Gran Pct Auto 0.3 % (0.0-0.4); Lymphocytes Absolute Auto 3.3 X10*3/uL (1.2-4.9); MANUAL DIFF FLAG NO; Mean Corpuscular HGB Conc 33.3 g/dl (31.0-35.0); Mean Corpuscular Hemoglobin 27.0 pg (27.0-33.0); Mean Corpuscular Volume 81.0 fL (80.0-98.0); NRBC Abs Auto 0.000 X10*3/uL (0.0-0.012); NRBC Pct Auto 0.0 /100WBC (0.0-0.2); Platelet Count 354 X10*3/uL (160-400); Red Blood Count 4.37 X10*6/uL (4.20-5.50); White Blood Count 7.9 X10*3/uL (4.8-10.8)
--- NOTE | 2024-12-21 05:12 | MHC.EDTECH ---
Belongings list completed,copy placed in chart
[2024-12-21 05:35] LABS: Alanine Aminotransferase 26 U/L (0-31); Albumin Level 3.7 g/dL (3.5-5.0); Alkaline Phosphatase 81 U/L (39-117); Anion Gap 9 (12-20); Aspartate Amino Transferase 28 U/L (5-31); Blood Urea Nitrogen 11 mg/dL (9-16); Calcium 8.1 mg/dL (8.4-10.2); Carbon Dioxide 24 mmol/L (22-29); Chloride 109 mmol/L (96-108); Creatinine Clr Calc Pharmacy 117.0; Estimated Glomerular Filt Rate > 60; Iron 45 mcg/dL (30-160); Percent Iron Saturation 18 % (15-50); Potassium 3.7 mmol/L (3.3-5.1); Sodium 138 mmol/L (135-145); Total Iron Binding Capacity 255 mcg/dL (228-428); Total Protein 6.7 g/dL (6.5-8.0); Unsaturated Iron Binding 210 ug/dL
[2024-12-21 07:40] LABS: Appearance Urine Clear; Glucose Urine UA Negative (Negative); PH 5.5 (5.0-9.0); Specific Gravity - Urine >= 1.030 (1.005-1.025)
[2024-12-21] MEDS: 0.9 % Sodium Chloride Flush 3 ML SYRINGE IVFLUSH (07:41)
--- NOTE | 2024-12-21 08:59 | PHA.MEDREC ---
Addendum entered by Aziza Parker RPh 12/21/24 14:05: MED REC REVIEWED BY [facility] Original Note: Pharmacy Consult ? Medication Reconciliation Pharmacy has completed the medication reconciliation. Patient states she was just discharged 2 weeks ago and there have not been any changes to her medications. Utilized claims and discharge packet from 12/12/24 to confirm med list. patient states she last had her medications yesterday.
--- NOTE | 2024-12-21 09:25 | PM.GICN ---
History of Present Illness Data of Consult Service Date: 12/21/24 Requesting physician: Deann Gonsalez Primary Care Provider: Unknown Physician HPI Reason for consult: intractable abdominal pain, gastroparesis, hx of colitis and colostomy 44 YF with history of colitis with recent colostomy, Alopecia, IBS, interstitial cystitis, occipital neuralgia of the right side, epidural abscess L2-L5, chronic pain, brain lesions (told it is not MS), seizures (last sz 4 months ago), hystrectomy for hyperplasia and risk for cancer, MDD, PTSD seen at [facility] on 12/21/24 with intractable abdominal pain, 10/10 after eating breakfast this morning Pt has gastroparesis with persistent nausea and vomiting and she reports it is virtually impossible for her to eat solids. Patient has lost 9 lb in the last 2 weeks. Patient has transitioned to ensure and can tolerate the ensure regularly. Patient also states the stool in her colostomy has been more green in color. She denies fever, chills, night sweats, chest pain or shortness of breath at rest. Patient reports ongoing alopecia and hair loss with no known explanation. Patient states the intermittent pain, nausea and gastroparesis has been ongoing for months since her colostomy has been placed. Some of patient's symptoms started 3 years ago after she had her gallbladder removed. Patient states colostomy was placed electively for chronic diarrhea and constipation issues related to IBS. There was thoughts that patient has sigmoid stricture but this was ruled out during surgery for colostomy. Patient is still follows with Dr. Allen. Patient has profound weakness in lower extremities with limited sensation but this is not new. Patient states she normally does not have sense or urge to void and has been experiencing this for the last 3 years. Patient has been working with PT and is now using a walker but prior was wheelchair-bound. Patient states she has follow with neurology for her seizures and also brain lesions and has been told that she does not have MS. In addition patient underwent a lumbar puncture in the past and has a chronic epidural cyst secondary to lumbar puncture with no evidence of infection. Labs in the ER showed normal LFTs, lactic acid, T bilirubin, H and H and patient does not have a leukocytosis. Stool panel is pending. Patient has been trying to get to a mechanical drafter specialist or gastro neuro specialist at [facility] and/or [facility] but neither facility takes her current insurance. Patient can not change her insurance until January of 2025. She has been considering a 2nd opinion for her neurological needs. Patient has not been able to find a neurologist outside the system that will accept her insurance. 12/21/[address] SCAN SHOWED: Cholecystectomy. Abdominal solid organs unremarkable. No urolithiasis. No bowel obstruction, pneumoperitoneum, or pneumatosis. Mesenteric vessels patent. Left lower quadrant ostomy. Hysterectomy. Ovaries unremarkable. The appendix is not identified. No acute fracture. IMPRESSION: No acute findings. PAST GI HISTORY BY REVIEW OF MEDICAL RECORDS: 12/09/[address] BRYANT SHOWED: EGD Impressions:? Normal esophagus (biopsy) Gastritis (biopsy) Duodenitis (biopsy)?? Recommendations:?? Empiric dilation of pyloric channel performed for reported gastroparesis. Continue PPI therapy. Can be switched to PO. Switch erythromycin to PO and taper off over the next 3 days. Add carafate 10 ml TID x 14 days. If patient continues to have persistent nausea and vomiting over the next 1-2 days, consider central source. Consider head imaging (CT head from August was without contrast). BIOPSIES SHOWED: A. Duodenum, biopsy: Chronic inactive duodenitis; Janene gland hyperplasia. B. Stomach, random, biopsy: Reactive gastropathy with background mild chronic inactive inflammation; no Helicobacter organisms seen. C. Esophagus, lower, biopsy: Squamous epithelium within normal limits; no inflammation seen 11/12/24 GASTRIC EMPTYING SHOWED: 1 hour 90% (normal 37%-90%) 2 hours 70% (normal 30%-60%) 3 hours 55% 4 hours 33% (normal 0%-10%) IMPRESSION: Abnormal 4-hour solid food gastric emptying study. Review of Systems Review of Systems: Yes all other systems are reviewed and are negative [facility] Past Medical History Medical History (Updated 12/29/24 @ 10:44 by Precious Farias NP) History of lumbar puncture (06/13/23) Seizures Postprocedural seroma of skin and subcutaneous tissue following other procedure Colostomy in place Hx of flexible sigmoidoscopy (07/26/24) Proctosigmoiditis Stricture of sigmoid colon Colon wall thickening Obesity, Class II, BMI 35-39.9 IBS (irritable bowel syndrome) History of colitis Gastric ulcer Interstitial cystitis Occipital neuralgia of right side History of suicidal ideation Anxiety Agoraphobia MDD (major depressive disorder) PTSD (post-traumatic stress disorder) Family History Family History Father Prostate cancer Maternal Uncle Colon cancer Maternal Grandmother Breast cancer Surgical History Surgical History (Updated 12/29/24 @ 10:44 by Precious Farias NP) Hx of History of colon surgery (08/12/24) History of tonsillectomy and adenoidectomy Hx of appendectomy H/O endoscopy (12/09/24) Hx of colonoscopy Hx of section H/O: hysterectomy Hx of cholecystectomy (~12/2022) Social History Social History Household Members: Spouse and Family Housing: House Do you presently have visiting nurse or other home services: Yes ([employer]) Alcohol intake: never 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 Patient Tobacco Use Status: Former Tobacco user Smoked in Last 30 Days: No e-Cigarette/Vaping Use: Never Used Use of substances other than those prescribed or required for medical reasons: No Substance Use Type: Marijuana Advance Directives: No Advance Directives Information Provided: No service: No Travel History Ebola Risk: Travel/Contact With Anyone From Affected Area/s: No Has Patient Experienced Ebola Symptoms: No Meds Allergies Allergy/AdvReac Type Severity Reaction Status Date / Time propofol Allergy Intermediate Itching Verified 12/29/24 00:33 morphine Allergy Mild Itching Verified 12/29/24 00:33 Active Medications: Current Medications Acetaminophen (Acetaminophen 325 Mg Tablet) 650 mg PO Q6H PRN PRN Reason: Pain, Mild 1-3,fever,headache Albuterol/Ipratropium (Albuterol/Iprat 2.5/0.5mg 3 Ml Ampul.Neb) 3 ml INHALE Q4H PRN PRN Reason: Shortness of Breath/Wheezing Calcium Carbonate (Calcium Carbonate 750 Mg Tab.Chew) 750 mg PO Q4H PRN PRN Reason: Heartburn Enoxaparin Sodium (Enoxaparin Sodium 40 Mg/0.4 Ml Syringe) 40 mg SUBCUT Q24H MARIAH Last Admin: 12/21/24 07:41 Dose: 40 mg Hydromorphone HCl (Hydromorphone Hcl 1 Mg/Ml Syringe) 1 mg IVPUSH Q3H PRN; Protocol PRN Reason: Pain, Severe (Pain Scale 7-10) Last Admin: 12/21/24 08:33 Dose: 1 mg Magnesium Hydroxide (Milk Of Magnesia 30 Ml Oral.Susp) 30 ml PO DAILY PRN PRN Reason: Constipation Melatonin (Melatonin 3 Mg Tablet) 6 mg PO BEDTIME PRN PRN Reason: Insomnia Metoclopramide HCl (Metoclopramide Hcl 10 Mg/2 Ml Vial) 10 mg IVPUSH Q4H PRN PRN Reason: Nausea Ondansetron HCl (Ondansetron Hcl 4 Mg/2 Ml Vial) 4 mg IVPUSH Q8H PRN PRN Reason: Nausea and Vomiting Last Admin: 12/21/24 07:41 Dose: 4 mg Pantoprazole Sodium (Pantoprazole Sodium 40 Mg/10 Ml Vial) 40 mg IVPUSH BID@0630,1630 [facility] Last Admin: 12/21/24 07:41 Dose: 40 mg Polyethylene Glycol (Polyethylene Glycol 3350 17 Gm Powd.Pack) 17 gm PO DAILY PRN PRN Reason: Constipation Sodium Chloride (0.9 % Sodium Chloride Flush 3 Ml Syringe) 3 ml IVFLUSH [facility] Last Admin: 12/21/24 07:41 Dose: 3 ml Home Medications ?Medication ?Instructions ?Recorded ?Confirmed ?Last Taken ?Type lamotrigine 200 mg tablet 200 mg PO DAILY 01/02/23 12/29/24 12/29/24 History valacyclovir 500 mg tablet 500 mg PO DAILY 01/02/23 12/29/24 12/29/24 History vortioxetine 20 mg tablet 20 mg PO DAILY 01/02/23 12/29/24 12/29/24 History (Trintellix) hydroxyzine HCl 25 mg tablet 25 mg PO BEDTIME 01/08/24 12/29/24 12/28/24 History lamotrigine 25 mg tablet 50 mg PO BEDTIME 01/08/24 12/29/24 12/28/24 History bisacodyl 5 mg tablet,delayed 10 mg PO BEDTIME 07/25/24 12/29/24 12/28/24 History release mirabegron 50 mg tablet,extended 50 mg PO DAILY 07/25/24 12/29/24 12/29/24 History release 24 hr (Myrbetriq) eszopiclone 3 mg tablet (Lunesta) 3 mg PO BEDTIME 08/06/24 12/29/24 12/28/24 History clonazepam 1 mg disintegrating 1 mg PO TID 12/08/24 12/29/24 12/29/24 History tablet pantoprazole 40 mg tablet,delayed 40 mg PO DAILY@0630 12/08/24 12/29/24 12/29/24 History release magnesium oxide 400 mg PO DAILY 12/21/24 12/29/24 12/29/24 History prucalopride 2 mg tablet 2 mg PO DAILY 12/21/24 12/29/24 12/29/24 History (Motegrity) promethazine 12.5 mg rectal mg OH PRN Motion Sickness/Allergies 12/29/24 Unknown History suppository Physical Exam Vital Signs: Vital Signs: Last Vital Signs Temp 96.8 F 12/21/24 07:39 Pulse 96 12/21/24 07:39 Resp 20 12/21/24 07:39 BP 143/74 H 12/21/24 07:39 Pulse Ox 98 12/21/24 07:39 O2 Del Method Room Air 12/21/24 07:39 BMI result Body Mass Index 39.1 Const: General: in distress (due to pain and nausea) Nutritional Appearance: obese Orientation/consciousness: patient oriented x3 Limitations: no limitations HEENT: Head: Yes normal to inspection Ears: hearing grossly normal bilaterally Mouth: Normal oral and palatal mucosa present Eyes: Sclerae: sclerae normal Pupils: Equal, round and reactive pupils present Neck: Neck: Yes normal visual inspection Chest: Chest palpation & inspection: normal inspection of the chest Resp: Effort & Inspection: normal respiratory effort Auscultation: clear to auscultation bilaterally Cardio: Palpation: normal PMI Rate: regular rate Rhythm: regular rhythm Heart sounds: S1 normal heart sound present, S2 normal heart sound present and no murmurs GI: Inspection: Yes other (colostomy in LLQ ) Palpation (GI): Soft to palpation, nontender and No hepatosplenomegaly present Auscultation: normal bowel sounds Rectal Exam - Female: deferred Skin: General skin exam: no rashes or lesions noted Neuro: General: patient oriented x3, gait normal and moves all extremities Cranial nerves: Yes Equal, round and reactive pupils present Psych: Appearance: grossly normal Mental Status: mental status grossly normal Results Labs 12/21/24 05:06 12/25/24 10:00 Labs: Short CBC 12/21/24 12/21/24 Range/Units 01:16 05:06 WBC 9.6 7.9 (4.8-10.8) X10*3/uL Hgb 13.5 11.8 L (12.0-16.0) g/dl Hct 40.2 35.4 L (37.0-47.0) % Plt Count 437 H D 354 (160-400) X10*3/uL BMP 12/21/24 12/21/24 01:16 05:06 Sodium 140 138 Potassium 4.0 3.7 Chloride 106 109 H Carbon Dioxide 23 24 BUN 13 11 Creatinine 0.85 0.70 Calcium 9.5 D 8.1 L D Liver Function 12/21/24 12/21/24 Range/Units 01:16 05:06 Total Bilirubin 0.4 0.2 (0.0-1.0) mg/dL Direct Bilirubin 0.1 (0.0-0.5) mg/dL AST 33 H 28 (5-31) U/L ALT 31 26 (0-31) U/L Alkaline Phosphatase 100 81 (39-117) U/L Albumin 4.7 3.7 (3.5-5.0) g/dL Urine 12/21/24 Range/Units 07:27 Urine Color Yellow Urine Appearance Clear Urine pH 5.5 (5.0-9.0) Ur Specific [place] >= 1.030 H (1.005-1.025) Urine Protein Trace (Neg-Trace) mg/dL Urine Glucose (UA) Negative (Negative) mg/dL Assessment and Plan (1) Gastroparesis: Status: Acute (2) Nausea & vomiting: Qualifiers: Vomiting type: unspecified Qualified Code(s): R11.2 - Nausea with vomiting, unspecified Status: Acute (3) Colostomy in place: Status: Acute Plan 44 YF with history of colitis with recent colostomy, Alopecia, IBS, interstitial cystitis, occipital neuralgia of the right side, epidural abscess L2-L5, chronic pain, brain lesions (told it is not MS), seizures (last sz 4 months ago), hystrectomy for hyperplasia and risk for cancer, MDD, PTSD admitted [place] [facility] on 12/21/24 with intractable abdominal pain, intractable nausea and vomiting. Stool studies were positive for norovirus infection - worsening of symptoms are likely due to gastroparesis flare with superimporsed Norovirus. Pt has diffuse upper and lower GI dysmotility and suspected to have small fiber neuropathy and autonomic neuropathy (since also has bowel and bladder issues) Pt was referred to [facility] program) and was not seen since her insurance is not accepted. Pt is planning to change her insurance in January so she can undergo further evaluation RECOMMENDATIONS 1. Agree with IV pain medications, metoclopramide, PPI and anti-emetics 2. Clear liquids as tolerated 3. Add promethazine suppositories for nausea (she was taking at home for breakthrough symptoms in between doses of ondansetron) Procedures Date of Service Date of Service: 12/29/24
[2024-12-21 09:43] LABS: E. coli EAEC Not Detected (Not Detect.); E. coli EPEC Not Detected (Not Detect.); E. coli ETEC Not Detected (Not Detect.); E. coli STEC Not Detected (Not Detect.); Shigella sp./EIEC Not Detected (Not Detect.)
[2024-12-21] MEDS: Potassium Chloride/H20 10 MEQ/100 ML PIGGYBACK 100 MEQ IV (10:38)
[2024-12-21] MEDS: Lactated Ringers 1,000 ML 100 ML IVCONT ×2 (10:39→20:39)
--- NOTE | 2024-12-21 13:12 | PC.NURSE ---
Addendum entered by Mona Panda RN 12/21/24 13:21: Patient is a 44-year-old female with past medical history colitis with recent colostomy, Alopecia, IBS, interstitial cystitis, occipital neuralgia of the right side, epidural abscess L2-L5, chronic pain, brain lesions (told it is not MS), seizures (last sz 4 months ago), hystrectomy for hyperplasia and risk for 0 cancer, MDD, PTSD presents to ED today after experiencing intractable abdominal pain, 10/10 after eating breakfast this morning patient also has a associated gastroparesis with persistent nausea and vomiting. Patient states it has gotten to the point that it is virtually impossible for her to eat solids. Patient has lost 9 lb in the last 2 weeks. Patient states the intermittent pain, nausea and gastroparesis has been ongoing for months since her colostomy has been placed. Patient states colostomy was placed electively for chronic diarrhea and constipation issues related to IBS. Patient has profound weakness in lower extremities with limited sensation but this is not new. Patient states she normally does not have sense or urge to void and has been experiencing this for the last 3 years and is on some sort of bladder regimen. Alert and oriented but appears sickly. Respirations even and non-labored. Abdomen soft with positive bowel sounds. c/o epigastric pain. Colostomy noted to left side of abdomen, draining liquid brown stool. Original Note: Medical History History of lumbar puncture (06/13/23) Seizures Hx of Postprocedural seroma of skin and subcutaneous tissue following other procedure Colostomy in place Hx of flexible sigmoidoscopy (07/26/24) Proctosigmoiditis Stricture of sigmoid colon Colon wall thickening Obesity, Class II, BMI 35-39.9 IBS (irritable bowel syndrome) History of colitis Gastric ulcer Interstitial cystitis Occipital neuralgia of right side History of suicidal ideation Anxiety Agoraphobia MDD (major depressive disorder) PTSD (post-traumatic stress disorder)
--- NOTE | 2024-12-21 17:16 | PM.EVENT ---
Event Note Date of Service: 12/21/24 Event Note: Patient seen and examined Has symptoms of nausea vomiting diarrhea which is somewhat improving GIP: Positive for norovirus Physical exam and assessment plan as per H andp. ? Viral gastroenteritis versus component of gastroparesis- We will continue IV fluid, antiemetics, pain meds GI evaluation Time Spent With Patient Time: Total time managing care of this patient today ____ minutes.
--- NOTE | 2024-12-21 19:56 | PC.NURSE ---
pt report is in- pt admitted for Gastroparesis, intractable abd pain. Waiting for transport- pt going to [id number].
[2024-12-21] MEDS: clonazePAM ODT 0.5 MG TAB.RAPDIS PO (23:27)
[2024-12-22] VITALS (8 sets, daily range): BP systolic 106–134; BP diastolic 60–72; PULSE 70–85; RESP 18–22; TEMP 36–36.9; O2SAT 93–96; BMI 39.2
[2024-12-22 06:12] LABS: Anion Gap 10 (12-20); Blood Urea Nitrogen 6 mg/dL (9-16); Calcium 8.2 mg/dL (8.4-10.2); Carbon Dioxide 25 mmol/L (22-29); Chloride 106 mmol/L (96-108); Creatinine Clr Calc Pharmacy 146.5; Estimated Glomerular Filt Rate > 60; Potassium 3.7 mmol/L (3.3-5.1); Sodium 137 mmol/L (135-145)
[2024-12-22] MEDS: Lactated Ringers 1,000 ML 100 ML IVCONT ×2 (06:31→16:37)
[2024-12-22] MEDS: 0.9 % Sodium Chloride Flush 3 ML SYRINGE IVFLUSH ×2 (09:37→19:52)
--- NOTE | 2024-12-22 11:23 | P.PNIM_ITS ---
Subjective Subjective Date of Service: 12/22/24 Review of Systems Follow up abd pain still with nausea, poor appetite Physical Exam 2 Exam: Exam: Appearing in no acute distress lung sounds are clear to auscultation heart regular rate rhythm, clear S1, S2 positive bowel sounds, abdomen is soft, epigastric pain neuro patient is alert x3, no focal deficits Vital Signs: Vital Signs: Last Vital Signs Temp 97.8 F 12/22/24 07:11 Pulse 85 12/22/24 07:11 Resp 18 12/22/24 07:11 BP 106/60 12/22/24 07:11 Pulse Ox 95 12/22/24 07:11 O2 Del Method Room Air 12/22/24 07:11 BMI result Body Mass Index 39.2 Objective Data Active Medications Acetaminophen (Acetaminophen 325 Mg Tablet) 650 mg PO Q6H PRN PRN Reason: Pain, Mild 1-3,fever,headache Albuterol/Ipratropium (Albuterol/Iprat 2.5/0.5mg 3 Ml Ampul.Neb) 3 ml INHALE Q4H PRN PRN Reason: Shortness of Breath/Wheezing Lipase/Protease/Amylase (Lipase/Prot/Amylase 12/38/60k Capsule.Dr) 1 cap PO QID [facility] Last Admin: 12/22/24 09:46 Dose: Not Given Documented By: EDILBERTO Non-Admin Reason: nausous, pt refusing Calcium Carbonate (Calcium Carbonate 750 Mg Tab.Chew) 750 mg PO Q4H PRN PRN Reason: Heartburn Clonazepam (Clonazepam 1 Mg Tablet) 1 mg PO TID [facility] Last Admin: 12/22/24 09:45 Dose: Not Given Documented By: EDILBERTO Non-Admin Reason: nauseous, patient refusing Docusate Sodium (Docusate Sodium 100 Mg Capsule) 100 mg PO BID [facility] Last Admin: 12/22/24 09:45 Dose: Not Given Documented By: EDILBERTO Non-Admin Reason: nausea, patient refusing Enoxaparin Sodium (Enoxaparin Sodium 40 Mg/0.4 Ml Syringe) 40 mg SUBCUT Q24H [facility] Last Admin: 12/22/24 04:37 Dose: 40 mg Documented By: ANDRIY Hydromorphone HCl (Hydromorphone Hcl 1 Mg/Ml Syringe) 1 mg IVPUSH Q3H PRN; Protocol PRN Reason: Pain, Severe (Pain Scale 7-10) Last Admin: 12/22/24 09:34 Dose: 1 mg Documented By: EDILBERTO Hydroxyzine HCl (Hydroxyzine Hcl 25 Mg Tablet) 25 mg PO BEDTIME [facility] Last Admin: 12/21/24 21:30 Dose: Not Given Documented By: ANDRIY Non-Admin Reason: Patient Refused Lactated Ringer's (Lr) 1,000 mls @ 100 mls/hr IVCONT .Q10H [facility] Last Admin: 12/22/24 06:31 Dose: 100 mls/hr Documented By: ANDRIY Lamotrigine (Lamotrigine 25 Mg Tablet) 50 mg PO BEDTIME [facility] Last Admin: 12/21/24 21:31 Dose: Not Given Documented By: ANDRIY Non-Admin Reason: Patient Refused Lamotrigine (Lamotrigine 100 Mg Tablet) 200 mg PO DAILY [facility] Last Admin: 12/22/24 09:45 Dose: Not Given Documented By: EDILBERTO Non-Admin Reason: nauseous, pt refusing Magnesium Hydroxide (Milk Of Magnesia 30 Ml Oral.Susp) 30 ml PO DAILY PRN On Hold: 12/21/24 17:20 PRN Reason: Constipation Melatonin (Melatonin 3 Mg Tablet) 6 mg PO BEDTIME PRN PRN Reason: Insomnia Metoclopramide HCl (Metoclopramide Hcl 10 Mg/2 Ml Vial) 10 mg IVPUSH Q4H PRN PRN Reason: Nausea Last Admin: 12/21/24 21:45 Dose: 10 mg Documented By: ANDRIY Mirabegron (Mirabegron 50 Mg Tab.Er.24h) 50 mg PO DAILY [facility] Last Admin: 12/22/24 09:46 Dose: Not Given Documented By: EDILBERTO Non-Admin Reason: nauseous, pt refusing Non-Formulary Medication (Eszopiclone [Lunesta]) 3 mg PO BEDTIME [facility] Non-Formulary Medication (Prucalopride [Motegrity]) 2 mg PO DAILY [facility] Ondansetron HCl (Ondansetron Hcl 4 Mg/2 Ml Vial) 4 mg IVPUSH Q8H PRN PRN Reason: Nausea and Vomiting Last Admin: 12/22/24 09:34 Dose: 4 mg Documented By: EDILBERTO Pantoprazole Sodium (Pantoprazole Sodium 40 Mg/10 Ml Vial) 40 mg IVPUSH BID@0630,1630 [facility] Last Admin: 12/22/24 05:52 Dose: 40 mg Documented By: ANDRIY Polyethylene Glycol (Polyethylene Glycol 3350 17 Gm Powd.Pack) 17 gm PO DAILY PRN On Hold: 12/21/24 17:20 PRN Reason: Constipation Promethazine HCl (Promethazine Hcl 25 Mg Supp.Rect) 25 mg NM Q6H PRN PRN Reason: Nausea and Vomiting Sodium Chloride (0.9 % Sodium Chloride Flush 3 Ml Syringe) 3 ml IVFLUSH QSHIFT [facility] Last Admin: 12/22/24 09:37 Dose: 3 ml Documented By: EDILBERTO Sucralfate (Sucralfate 1 Gm Tablet) 1 gm PO BID [facility] Last Admin: 12/22/24 09:46 Dose: Not Given Documented By: EDILBERTO Non-Admin Reason: nausous, pt refusing Valacyclovir HCl (Valacyclovir Hcl 500 Mg Tablet) 500 mg PO DAILY [facility] Last Admin: 12/22/24 09:46 Dose: Not Given Documented By: EDILBERTO Non-Admin Reason: nauseous, patient refusing Vitamin D (Cholecalciferol (Vitamin D3) 25 Mcg Tablet) 125 mcg PO DAILY [facility] Last Admin: 12/22/24 09:45 Dose: Not Given Documented By: EDILBERTO Non-Admin Reason: nauseous pt refusing Vortioxetine (Vortioxetine Hydrobromide 20 Mg Tablet) 20 mg PO DAILY [facility] Last Admin: 12/22/24 09:46 Dose: Not Given Documented By: EDILBERTO Non-Admin Reason: nauseous, pt refusing Labs 12/21/24 05:06 12/22/24 05:17 Labs: Laboratory Results - last 24 hr 12/22/24 05:17 Anion Gap 10 L Estim Creat Clear Calc 146.5 Estimated GFR > 60 Random Glucose 73 Calcium 8.2 L Assessment and Plan (1) Gastroparesis: Status: Acute Plan 44-year-old female with past medical history colitis with recent colostomy, Alopecia, IBS, interstitial cystitis, occipital neuralgia of the right side, epidural cyst L2-L5, chronic pain, brain lesions (told it is not MS), seizures (last sz 4 months ago), hystrectomy for hyperplasia and risk for 0 cancer, MDD, PTSD presents to ED today after experiencing intractable abdominal pain, 10/10 after eating breakfast this morning patient also has a associated gastroparesis with persistent nausea and vomiting. Patient states it has gotten to the point that it is virtually impossible for her to eat solids. Patient has lost 9 lb in the last 2 weeks. Intractable abdominal pain CT scan negative for any acute findings Abdominal ultrasound ordered GI consulted Colostomy patent no current indication for surgical intervention or consultation Dilaudid PRN NPO for bowel rest Gastroparesis Reglan PRN, Qtc 443 NPO No indication for NG tube at this time nutritional consult placed, consider PPN, patient can not tolerate solid food, has been using ensures Colostomy placed July 2024 Patient reported green stool for output Stool panel is pending No indication for antibiotics currently Colostomy care ordered Seizure history Patient normally takes Lamictal Patient has been noting capsules in her colostomy bag, patient reassured that the medications being absorbed We will attempt to check Lamictal level for reassurance Last seizure 4 months ago Weakness with limited mobility PT eval requested Neurological consultation if indicated GERD/esophagitis Protonix IV Anxiety/MDD/PTSD Continue lamotrigine Clonazepam Morbid obesity Nutritional consultation placed DVT prophylaxis: Lovenox Full Code status Quality Stroke Does the patient have a stroke diagnosis?: No Reason for No Anti-thrombotic by Day Two: N/A - Med Ordered VTE Prior VTE?: No VTE Risk Level:: Medical - moderate - high VTE Device Contraindication: N/A - Device Ordered VTE Drug Contraindication: N/A - Med Ordered
--- NOTE | 2024-12-22 14:17 | MHC.CLN ---
CONSULT NPO DUE TO GASTROPARESIS WITH NAUSEA AND VOMITING. POSITIVE FOR NOROVIRUS. WEIGHT LOSS X 30 DAYS -3.6%. NO SIGNIFICANT WEIGHT LOSS X 30 OR 90 DAYS. POOR PO INTAKE REPORTED X 2 WEEKS PRIOR TO ADM WITH REPORT OF UNABLE TO TOLERATE SOLIDS, COULD TAKE ENSURE. FOLLOW FOR DIET ADVANCEMENT AND PO TOLERANCE. MAY REQUIRE ALTERNATE NUTRITION IF UNABLE TO TOLERATE PO INTAKE. SEE CLINICAL NUTRITION ASSESSMENT 12/22/24.
--- NOTE | 2024-12-22 16:09 | MHC.CM.PN ---
PT REPORTS SHE LIVES WITH HER AND TWO KIDS SHE HAS DAILY [employer] AND USES A WALKER, SHE ALSO HAS AN OSTOMY PCP: MAYURI DONOVAN DCP: HOME RESUME [employer]SP[employer]
[2024-12-23] MEDS: Lactated Ringers 1,000 ML 100 ML IVCONT (02:28)
[2024-12-23 03:04] VITALS: BP 115/61; PULSE 80; RESP 18; TEMP 36.3; O2SAT 95
[2024-12-23 07:48] VITALS: BP 117/67; PULSE 90; RESP 18; TEMP 36; O2SAT 96
[2024-12-23] MEDS: Mirabegron 50 MG TAB.ER.24H PO (08:06)
[2024-12-23] MEDS: 0.9 % Sodium Chloride Flush 3 ML SYRINGE IVFLUSH ×3 (08:10→20:15)
--- NOTE | 2024-12-23 08:38 | HO.PM.IMPN ---
Subjective Subjective Date of Service: 12/23/24 Review of Systems Follow up abd pain still with nausea Physical Exam Exam: Exam: Appearing in no acute distress lung sounds are clear to auscultation heart regular rate rhythm, clear S1, S2 positive bowel sounds, abdomen is soft, nontender neuro patient is alert x3, no focal deficits Vital Signs: Vital Signs: Last Vital Signs Temp 96.8 F 12/23/24 07:48 Pulse 90 12/23/24 07:48 Resp 18 12/23/24 07:48 BP 117/67 12/23/24 07:48 Pulse Ox 96 12/23/24 07:48 O2 Del Method Room Air 12/23/24 07:48 BMI result Body Mass Index 39.2 Objective Data Active Medications Acetaminophen (Acetaminophen 325 Mg Tablet) 650 mg PO Q6H PRN PRN Reason: Pain, Mild 1-3,fever,headache Albuterol/Ipratropium (Albuterol/Iprat 2.5/0.5mg 3 Ml Ampul.Neb) 3 ml INHALE Q4H PRN PRN Reason: Shortness of Breath/Wheezing Lipase/Protease/Amylase (Lipase/Prot/Amylase 12/38/60k Capsule.Dr) 1 cap PO QID [facility] Last Admin: 12/23/24 08:07 Dose: Not Given Documented By: NORMAN Non-Admin Reason: NPO Calcium Carbonate (Calcium Carbonate 750 Mg Tab.Chew) 750 mg PO Q4H PRN PRN Reason: Heartburn Clonazepam (Clonazepam 1 Mg Tablet) 1 mg PO TID [facility] Last Admin: 12/23/24 08:07 Dose: 1 mg Documented By: NORMAN Docusate Sodium (Docusate Sodium 100 Mg Capsule) 100 mg PO BID [facility] Last Admin: 12/23/24 08:06 Dose: 100 mg Documented By: NORMAN Enoxaparin Sodium (Enoxaparin Sodium 40 Mg/0.4 Ml Syringe) 40 mg SUBCUT Q24H [facility] Last Admin: 12/23/24 05:32 Dose: 40 mg Documented By: SHELLEY Hydromorphone HCl (Hydromorphone Hcl 1 Mg/Ml Syringe) 1 mg IVPUSH Q3H PRN; Protocol PRN Reason: Pain, Severe (Pain Scale 7-10) Last Admin: 12/23/24 08:02 Dose: 1 mg Documented By: NORMAN Hydroxyzine HCl (Hydroxyzine Hcl 25 Mg Tablet) 25 mg PO BEDTIME [facility] Last Admin: 12/22/24 21:44 Dose: 25 mg Documented By: SHELLEY Lactated Ringer's (Lr) 1,000 mls @ 100 mls/hr IVCONT .Q10H [facility] Last Admin: 12/23/24 02:28 Dose: 100 mls/hr Documented By: SHELLEY Lamotrigine (Lamotrigine 25 Mg Tablet) 50 mg PO BEDTIME [facility] Last Admin: 12/22/24 21:44 Dose: 50 mg Documented By: SHELLEY Lamotrigine (Lamotrigine 100 Mg Tablet) 200 mg PO DAILY [facility] Last Admin: 12/23/24 08:06 Dose: 200 mg Documented By: NORMAN Magnesium Hydroxide (Milk Of Magnesia 30 Ml Oral.Susp) 30 ml PO DAILY PRN On Hold: 12/21/24 17:20 PRN Reason: Constipation Melatonin (Melatonin 3 Mg Tablet) 6 mg PO BEDTIME PRN PRN Reason: Insomnia Metoclopramide HCl (Metoclopramide Hcl 10 Mg/2 Ml Vial) 10 mg IVPUSH Q4H PRN PRN Reason: Nausea Last Admin: 12/22/24 23:12 Dose: 10 mg Documented By: SHELLEY Mirabegron (Mirabegron 50 Mg Tab.Er.24h) 50 mg PO DAILY [facility] Last Admin: 12/23/24 08:06 Dose: 50 mg Documented By: NORMAN Non-Formulary Medication (Eszopiclone [Lunesta]) 3 mg PO BEDTIME [facility] Non-Formulary Medication (Prucalopride [Motegrity]) 2 mg PO DAILY [facility] Ondansetron HCl (Ondansetron Hcl 4 Mg/2 Ml Vial) 4 mg IVPUSH Q8H PRN PRN Reason: Nausea and Vomiting Last Admin: 12/23/24 08:02 Dose: 4 mg Documented By: NORMAN Pantoprazole Sodium (Pantoprazole Sodium 40 Mg/10 Ml Vial) 40 mg IVPUSH BID@0630,1630 [facility] Last Admin: 12/23/24 05:32 Dose: 40 mg Documented By: SHELLEY Polyethylene Glycol (Polyethylene Glycol 3350 17 Gm Powd.Pack) 17 gm PO DAILY PRN On Hold: 12/21/24 17:20 PRN Reason: Constipation Promethazine HCl (Promethazine Hcl 25 Mg Supp.Rect) 25 mg RI Q6H PRN PRN Reason: Nausea and Vomiting Sodium Chloride (0.9 % Sodium Chloride Flush 3 Ml Syringe) 3 ml IVFLUSH QSHIFT [facility] Last Admin: 12/23/24 08:10 Dose: 3 ml Documented By: NORMAN Sucralfate (Sucralfate 1 Gm Tablet) 1 gm PO BID [facility] Last Admin: 12/23/24 08:06 Dose: 1 gm Documented By: NORMAN Valacyclovir HCl (Valacyclovir Hcl 500 Mg Tablet) 500 mg PO DAILY [facility] Last Admin: 12/23/24 08:06 Dose: 500 mg Documented By: NORMAN Vitamin D (Cholecalciferol (Vitamin D3) 25 Mcg Tablet) 125 mcg PO DAILY [facility] Last Admin: 12/23/24 08:07 Dose: 125 mcg Documented By: NORMAN Vortioxetine (Vortioxetine Hydrobromide 20 Mg Tablet) 20 mg PO DAILY [facility] Last Admin: 12/23/24 08:07 Dose: 20 mg Documented By: NORMAN Labs 12/21/24 05:06 12/22/24 05:17 Assessment and Plan (1) Gastroparesis: Status: Acute Plan 44-year-old female with past medical history colitis with recent colostomy, Alopecia, IBS, interstitial cystitis, occipital neuralgia of the right side, epidural cyst L2-L5, chronic pain, brain lesions (told it is not MS), seizures (last sz 4 months ago), hystrectomy for hyperplasia and risk for 0 cancer, MDD, PTSD presents to ED today after experiencing intractable abdominal pain, 10/10 after eating breakfast this morning patient also has a associated gastroparesis with persistent nausea and vomiting. Patient states it has gotten to the point that it is virtually impossible for her to eat solids. Patient has lost 9 lb in the last 2 weeks. Intractable abdominal pain, norovirus positive. slowly improving CT scan negative for any acute findings Abdominal ultrasound>neg GI consulted>continue antiemetics, pain medication, advance diet Colostomy patent no current indication for surgical intervention or consultation Dilaudid PRN clear liquid diet Gastroparesis Reglan PRN, Qtc 443 No indication for NG tube at this time nutritional consult placed, consider PPN, patient can not tolerate solid food, has been using ensures attempting clears today Colostomy placed July 2024 Patient reported green stool for output neg cdiff No indication for antibiotics currently Colostomy care ordered Seizure history Patient normally takes Lamictal Patient has been noting capsules in her colostomy bag, patient reassured that the medications being absorbed We will attempt to check Lamictal level for reassurance Last seizure 4 months ago Weakness with limited mobility PT eval>home with services when medically clear Neurological consultation if indicated GERD/esophagitis Protonix IV Anxiety/MDD/PTSD Continue lamotrigine Clonazepam Morbid obesity. BMI 39.2 Nutritional consultation placed DVT prophylaxis: Lovenox Full Code status Quality Stroke Does the patient have a stroke diagnosis?: No Reason for No Anti-thrombotic by Day Two: N/A - Med Ordered VTE Prior VTE?: No VTE Risk Level:: Medical - moderate - high VTE Device Contraindication: N/A - Device Ordered VTE Drug Contraindication: N/A - Med Ordered
[2024-12-23 12:00] VITALS: BP 107/59; PULSE 97; RESP 18; TEMP 36.1; O2SAT 95
[2024-12-23] MEDS: Lipase/Prot/Amylase 12/38/60K CAPSULE.DR 1 CAP PO (13:19)
[2024-12-23 15:21] VITALS: BP 132/74; PULSE 86; RESP 16; TEMP 36.1; O2SAT 96
[2024-12-23 19:34] VITALS: BP 124/69; PULSE 93; RESP 16; TEMP 36.2; O2SAT 97
[2024-12-23 23:19] VITALS: BP 117/66; PULSE 88; RESP 16; TEMP 36.1; O2SAT 95
[2024-12-24] VITALS (7 sets, daily range): BP systolic 100–125; BP diastolic 58–85; PULSE 78–97; RESP 16–18; TEMP 36–36.3; O2SAT 93–97
--- NOTE | 2024-12-24 09:06 | MHC.CLN ---
F/U DIET ADVANCED TO CLEAR LIQUIDS. ADDING ENSURE CLEAR TID TO PROMOTE NUTRITIONAL INTAKE. SUPPLEMENT PROVIDES 720 KCALS, 24 G PROTEIN. MONITOR FOR DIET ADVANCEMENT AND PO INTAKE.
--- NOTE | 2024-12-24 09:22 | P.PNIM_ITS ---
Subjective Subjective Date of Service: 12/24/24 Review of Systems Follow up abd pain still with nausea Physical Exam 2 Exam: Exam: Appearing in no acute distress lung sounds are clear to auscultation heart regular rate rhythm, clear S1, S2 positive bowel sounds, abdomen is soft, nontender neuro patient is alert x3, no focal deficits Vital Signs: Vital Signs: Last Vital Signs Temp 96.9 F 12/24/24 07:57 Pulse 82 12/24/24 07:57 Resp 18 12/24/24 07:57 BP 103/60 12/24/24 07:57 Pulse Ox 93 12/24/24 07:57 O2 Del Method Room Air 12/24/24 07:57 BMI result Body Mass Index 39.2 Objective Data Active Medications Acetaminophen (Acetaminophen 325 Mg Tablet) 650 mg PO Q6H PRN PRN Reason: Pain, Mild 1-3,fever,headache Albuterol/Ipratropium (Albuterol/Iprat 2.5/0.5mg 3 Ml Ampul.Neb) 3 ml INHALE Q4H PRN PRN Reason: Shortness of Breath/Wheezing Lipase/Protease/Amylase (Lipase/Prot/Amylase 12/38/60k Capsule.Dr) 1 cap PO QID [facility] Last Admin: 12/23/24 21:15 Dose: Not Given Documented By: SHELLEY Non-Admin Reason: Patient Refused Calcium Carbonate (Calcium Carbonate 750 Mg Tab.Chew) 750 mg PO Q4H PRN PRN Reason: Heartburn Clonazepam (Clonazepam 1 Mg Tablet) 1 mg PO TID [facility] Last Admin: 12/23/24 20:15 Dose: 1 mg Documented By: SHELLEY Docusate Sodium (Docusate Sodium 100 Mg Capsule) 100 mg PO BID [facility] Last Admin: 12/23/24 20:15 Dose: 100 mg Documented By: SHELLEY Enoxaparin Sodium (Enoxaparin Sodium 40 Mg/0.4 Ml Syringe) 40 mg SUBCUT Q24H [facility] Last Admin: 12/24/24 05:34 Dose: 40 mg Documented By: SHELLEY Hydromorphone HCl (Hydromorphone Hcl 1 Mg/Ml Syringe) 1 mg IVPUSH Q3H PRN; Protocol PRN Reason: Pain, Severe (Pain Scale 7-10) Last Admin: 12/24/24 02:25 Dose: 1 mg Documented By: SHELLEY Hydroxyzine HCl (Hydroxyzine Hcl 25 Mg Tablet) 25 mg PO BEDTIME [facility] Last Admin: 12/23/24 20:16 Dose: 25 mg Documented By: SHELLEY Lamotrigine (Lamotrigine 25 Mg Tablet) 50 mg PO BEDTIME [facility] Last Admin: 12/23/24 20:15 Dose: 50 mg Documented By: SHELLEY Lamotrigine (Lamotrigine 100 Mg Tablet) 200 mg PO DAILY [facility] Last Admin: 12/23/24 08:06 Dose: 200 mg Documented By: NORMAN Magnesium Hydroxide (Milk Of Magnesia 30 Ml Oral.Susp) 30 ml PO DAILY PRN On Hold: 12/21/24 17:20 PRN Reason: Constipation Melatonin (Melatonin 3 Mg Tablet) 6 mg PO BEDTIME PRN PRN Reason: Insomnia Metoclopramide HCl (Metoclopramide Hcl 10 Mg/2 Ml Vial) 10 mg IVPUSH Q4H PRN PRN Reason: Nausea Last Admin: 12/24/24 02:24 Dose: 10 mg Documented By: SHELLEY Mirabegron (Mirabegron 50 Mg Tab.Er.24h) 50 mg PO DAILY [facility] Last Admin: 12/23/24 08:06 Dose: 50 mg Documented By: NORMAN Non-Formulary Medication (Eszopiclone [Lunesta]) 3 mg PO BEDTIME [facility] Non-Formulary Medication (Prucalopride [Motegrity]) 2 mg PO DAILY [facility] Ondansetron HCl (Ondansetron Hcl 4 Mg/2 Ml Vial) 4 mg IVPUSH Q8H PRN PRN Reason: Nausea and Vomiting Last Admin: 12/23/24 08:02 Dose: 4 mg Documented By: NORMAN Polyethylene Glycol (Polyethylene Glycol 3350 17 Gm Powd.Pack) 17 gm PO DAILY PRN On Hold: 12/21/24 17:20 PRN Reason: Constipation Promethazine HCl (Promethazine Hcl 25 Mg Supp.Rect) 25 mg [place] Q6H PRN PRN Reason: Nausea and Vomiting Last Admin: 12/23/24 15:24 Dose: 25 mg Documented By: NORMAN Sodium Chloride (0.9 % Sodium Chloride Flush 3 Ml Syringe) 3 ml IVFLUSH QSHIFT [facility] Last Admin: 12/23/24 20:15 Dose: 3 ml Documented By: SHELLEY Sucralfate (Sucralfate 1 Gm Tablet) 1 gm PO BID [facility] Last Admin: 12/23/24 20:16 Dose: 1 gm Documented By: SHELLEY Valacyclovir HCl (Valacyclovir Hcl 500 Mg Tablet) 500 mg PO DAILY [facility] Last Admin: 12/23/24 08:06 Dose: 500 mg Documented By: NORMAN Vitamin D (Cholecalciferol (Vitamin D3) 25 Mcg Tablet) 125 mcg PO DAILY [facility] Last Admin: 12/23/24 08:07 Dose: 125 mcg Documented By: NORMAN Vortioxetine (Vortioxetine Hydrobromide 20 Mg Tablet) 20 mg PO DAILY [facility] Last Admin: 12/23/24 08:07 Dose: 20 mg Documented By: NORMAN Labs 12/21/24 05:06 12/22/24 05:17 Assessment and Plan (1) Gastroparesis: Status: Acute Plan 44-year-old female with past medical history colitis with recent colostomy, Alopecia, IBS, interstitial cystitis, occipital neuralgia of the right side, epidural cyst L2-L5, chronic pain, brain lesions (told it is not MS), seizures (last sz 4 months ago), hystrectomy for hyperplasia and risk for 0 cancer, MDD, PTSD presents to ED today after experiencing intractable abdominal pain, 10/10 after eating breakfast this morning patient also has a associated gastroparesis with persistent nausea and vomiting. Patient states it has gotten to the point that it is virtually impossible for her to eat solids. Patient has lost 9 lb in the last 2 weeks. Intractable abdominal pain, norovirus positive. slowly improving CT scan negative for any acute findings Abdominal ultrasound>neg GI consulted>continue antiemetics, pain medication, advance diet Colostomy patent no current indication for surgical intervention or consultation Dilaudid PRN advance diet Gastroparesis Reglan PRN, Qtc 443 No indication for NG tube at this time nutritional consult placed, consider PPN, patient can not tolerate solid food, has been using ensures attempting clears today Colostomy placed July 2024 Patient reported green stool for output neg cdiff No indication for antibiotics currently Colostomy care ordered Seizure history Patient normally takes Lamictal Patient has been noting capsules in her colostomy bag, patient reassured that the medications being absorbed We will attempt to check Lamictal level for reassurance Last seizure 4 months ago Weakness with limited mobility PT eval>home with services when medically clear Neurological consultation if indicated GERD/esophagitis Protonix IV Anxiety/MDD/PTSD Continue lamotrigine Clonazepam Morbid obesity. BMI 39.2 Nutritional consultation placed DVT prophylaxis: Lovenox Full Code status Quality Stroke Does the patient have a stroke diagnosis?: No Reason for No Anti-thrombotic by Day Two: N/A - Med Ordered VTE Prior VTE?: No VTE Risk Level:: Medical - moderate - high VTE Device Contraindication: N/A - Device Ordered VTE Drug Contraindication: N/A - Med Ordered
[2024-12-24] MEDS: Mirabegron 50 MG TAB.ER.24H PO (09:52)
[2024-12-24] MEDS: Lipase/Prot/Amylase 12/38/60K CAPSULE.DR 1 CAP PO ×4 (09:52→19:58)
[2024-12-24] MEDS: 0.9 % Sodium Chloride Flush 3 ML SYRINGE IVFLUSH (20:03)
[2024-12-25] VITALS (8 sets, daily range): BP systolic 112–152; BP diastolic 63–88; PULSE 82–99; RESP 16–18; TEMP 36–36.5; O2SAT 94–97
[2024-12-25] MEDS: Lipase/Prot/Amylase 12/38/60K CAPSULE.DR 1 CAP PO ×4 (09:06→21:23)
[2024-12-25] MEDS: Mirabegron 50 MG TAB.ER.24H PO (09:07)
[2024-12-25] MEDS: 0.9 % Sodium Chloride Flush 3 ML SYRINGE IVFLUSH ×2 (09:09→16:01)
[2024-12-25 10:36] LABS: Alanine Aminotransferase 30 U/L (0-31); Albumin Level 4.0 g/dL (3.5-5.0); Alkaline Phosphatase 94 U/L (39-117); Anion Gap 12 (12-20); Aspartate Amino Transferase 40 U/L (5-31); Blood Urea Nitrogen 6 mg/dL (9-16); Calcium 9.2 mg/dL (8.4-10.2); Carbon Dioxide 26 mmol/L (22-29); Chloride 103 mmol/L (96-108); Creatinine Clr Calc Pharmacy 136.7; Estimated Glomerular Filt Rate > 60; Potassium 4.0 mmol/L (3.3-5.1); Sodium 137 mmol/L (135-145); Total Protein 7.1 g/dL (6.5-8.0)
[2024-12-25] MEDS: Lactated Ringers 1,000 ML 125 ML IVCONT ×2 (11:16→16:51)
[2024-12-25 11:33] LABS: Lamotrigine Lamictal 7.2 mcg/mL (2.5-15.0)
--- NOTE | 2024-12-25 13:20 | P.PNIM_ITS ---
Subjective Subjective Date of Service: 12/25/24 Interval History: Still feels nauseous with limited intake Review of Systems Denies chest pain Denies shortness of breath admits to nausea with intermittent vomiting and diarrhea Admits to diffuse mild abdominal pain Denies fever chills Physical Exam 2 Vital Signs: Vital Signs: Last Vital Signs Temp 97.6 F 12/25/24 12:00 Pulse 82 12/25/24 12:00 Resp 18 12/25/24 12:00 BP 112/70 12/25/24 12:00 Pulse Ox 96 12/25/24 12:00 O2 Del Method Room Air 12/25/24 12:00 BMI result Body Mass Index 39.2 Const: Other: Awake alert ill-appearing Resp: Other: Clear to auscultation bilaterally no rales rhonchi or wheezes Cardio: Other: No S4; positive S1-S2; no S3 murmurs rubs or gallops GI: Other: Soft nontender nondistended normoactive bowel sounds Objective Data Active Medications Acetaminophen (Acetaminophen 325 Mg Tablet) 650 mg PO Q6H PRN PRN Reason: Pain, Mild 1-3,fever,headache Albuterol/Ipratropium (Albuterol/Iprat 2.5/0.5mg 3 Ml Ampul.Neb) 3 ml INHALE Q4H PRN PRN Reason: Shortness of Breath/Wheezing Lipase/Protease/Amylase (Lipase/Prot/Amylase 12/38/60k Capsule.Dr) 1 cap PO QID [facility] Last Admin: 12/25/24 12:46 Dose: 1 cap Documented By: DEISY Calcium Carbonate (Calcium Carbonate 750 Mg Tab.Chew) 750 mg PO Q4H PRN PRN Reason: Heartburn Clonazepam (Clonazepam 1 Mg Tablet) 1 mg PO TID [facility] Last Admin: 12/25/24 09:07 Dose: 1 mg Documented By: DEISY Docusate Sodium (Docusate Sodium 100 Mg Capsule) 100 mg PO BID [facility] Last Admin: 12/25/24 09:15 Dose: Not Given Documented By: DEISY Non-Admin Reason: Patient Refused Enoxaparin Sodium (Enoxaparin Sodium 40 Mg/0.4 Ml Syringe) 40 mg SUBCUT Q24H [facility] Last Admin: 12/25/24 04:08 Dose: 40 mg Documented By: IVANNA Hydromorphone HCl (Hydromorphone Hcl 1 Mg/Ml Syringe) 1 mg IVPUSH Q4H PRN; Protocol PRN Reason: Pain, Severe (Pain Scale 7-10) Last Admin: 12/25/24 11:15 Dose: 1 mg Documented By: DEISY Hydroxyzine HCl (Hydroxyzine Hcl 25 Mg Tablet) 25 mg PO BEDTIME [facility] Last Admin: 12/24/24 19:58 Dose: 25 mg Documented By: IVANNA Lactated Ringer's (Lr) 1,000 mls @ 125 mls/hr IVCONT .Q8H MARIAH Last Admin: 12/25/24 11:16 Dose: 125 mls/hr Documented By: DEISY Lamotrigine (Lamotrigine 25 Mg Tablet) 50 mg PO BEDTIME [facility] Last Admin: 12/24/24 19:58 Dose: 50 mg Documented By: IVANNA Lamotrigine (Lamotrigine 100 Mg Tablet) 200 mg PO DAILY [facility] Last Admin: 12/25/24 09:07 Dose: 200 mg Documented By: DEISY Magnesium Hydroxide (Milk Of Magnesia 30 Ml Oral.Susp) 30 ml PO DAILY PRN On Hold: 12/21/24 17:20 PRN Reason: Constipation Melatonin (Melatonin 3 Mg Tablet) 6 mg PO BEDTIME PRN PRN Reason: Insomnia Metoclopramide HCl (Metoclopramide Hcl 10 Mg/2 Ml Vial) 10 mg IVPUSH Q4H PRN PRN Reason: Nausea Last Admin: 12/25/24 09:08 Dose: 10 mg Documented By: DEISY Mirabegron (Mirabegron 50 Mg Tab.Er.24h) 50 mg PO DAILY [facility] Last Admin: 12/25/24 09:07 Dose: 50 mg Documented By: DEISY Non-Formulary Medication (Eszopiclone [Lunesta]) 3 mg PO BEDTIME [facility] Non-Formulary Medication (Prucalopride [Motegrity]) 2 mg PO DAILY [facility] Ondansetron HCl (Ondansetron Hcl 4 Mg/2 Ml Vial) 4 mg IVPUSH Q8H PRN PRN Reason: Nausea and Vomiting Last Admin: 12/25/24 06:23 Dose: 4 mg Documented By: IVANNA Polyethylene Glycol (Polyethylene Glycol 3350 17 Gm Powd.Pack) 17 gm PO DAILY PRN On Hold: 12/21/24 17:20 PRN Reason: Constipation Promethazine HCl (Promethazine Hcl 25 Mg Supp.Rect) 25 mg [place] Q6H PRN PRN Reason: Nausea and Vomiting Last Admin: 12/25/24 12:46 Dose: 25 mg Documented By: DEISY Sodium Chloride (0.9 % Sodium Chloride Flush 3 Ml Syringe) 3 ml IVFLUSH QSHIFT [facility] Last Admin: 12/25/24 09:09 Dose: 3 ml Documented By: DEISY Sucralfate (Sucralfate 1 Gm Tablet) 1 gm PO BID [facility] Last Admin: 12/25/24 09:07 Dose: 1 gm Documented By: DEISY Valacyclovir HCl (Valacyclovir Hcl 500 Mg Tablet) 500 mg PO DAILY [facility] Last Admin: 12/25/24 09:07 Dose: 500 mg Documented By: DEISY Vitamin D (Cholecalciferol (Vitamin D3) 25 Mcg Tablet) 125 mcg PO DAILY [facility] Last Admin: 12/25/24 09:15 Dose: Not Given Documented By: DEISY Non-Admin Reason: Patient Refused Vortioxetine (Vortioxetine Hydrobromide 20 Mg Tablet) 20 mg PO DAILY [facility] Last Admin: 12/25/24 09:07 Dose: 20 mg Documented By: DEISY Labs 12/21/24 05:06 12/25/24 10:00 Labs: Laboratory Results - last 24 hr 12/21/24 12/25/24 06:14 10:00 Anion Gap 12 Estim Creat Clear Calc 136.7 Estimated GFR > 60 Random Glucose 94 Calcium 9.2 D Total Bilirubin 0.3 AST 40 H ALT 30 Alkaline Phosphatase 94 Total Protein 7.1 Albumin 4.0 Lamotrigine 7.2 Assessment and Plan (1) Norovirus: Status: Acute (2) Gastroparesis: Status: Acute (3) Nausea & vomiting: Status: Acute (4) Intractable abdominal pain: Status: Acute Plan 44-year-old female with past medical history colitis with recent colostomy, Alopecia, IBS, interstitial cystitis, occipital neuralgia of the right side, epidural cyst L2-L5, chronic pain, brain lesions (told it is not MS), seizures (last sz 4 months ago), hystrectomy for hyperplasia and risk for 0 cancer, MDD, PTSD presents to ED today after experiencing intractable abdominal pain, 10/10 after eating breakfast this morning patient also has a associated gastroparesis with persistent nausea and vomiting. Patient states it has gotten to the point that it is virtually impossible for her to eat solids. Patient has lost 9 lb in the last 2 weeks. 1.Intractable abdominal pain, norovirus positive... In backdrop of chronic gastroparesis -restart IV fluids. . . LR at 01:25 an hour -antiemetics as ordered -Dilaudid PRN -recheck labs in a.m.... Nutrition following 2.Hx Seizure disorder -no recent seizures -continue current therapies 3.GERD -Protonix IV.. Switch to p.o. when appropriate 4.Anxiety/MDD/PTSD -stable and well compensated -adjust as indicated Lovenox Full Code Requires ongoing hospitalization for supplemental IV fluids and antiemetics to treat norovirus in the backdrop of gastroparesis. Patient extremely high risk for outpatient failure Quality Stroke Does the patient have a stroke diagnosis?: No Reason for No Anti-thrombotic by Day Two: N/A - Med Ordered VTE Prior VTE?: No VTE Risk Level:: Medical - moderate - high VTE Device Contraindication: N/A - Device Ordered VTE Drug Contraindication: N/A - Med Ordered
[2024-12-26] VITALS (8 sets, daily range): BP systolic 108–141; BP diastolic 56–76; PULSE 70–108; RESP 16–18; TEMP 36–36.8; O2SAT 94–97
[2024-12-26] MEDS: Lactated Ringers 1,000 ML 125 ML IVCONT ×4 (01:54→23:35)
--- NOTE | 2024-12-26 05:50 | PC.NURSE ---
Pt seen on bed alert and oriented, still with on and off abdl pain, SNT, medicated with prn Dilaudid with good effect, pt reports intermittent vomiting with greenish liquid, Colostomy bag on the RLQ empty, site benign, assisted to commode, voiding freely, no seizure noted.
[2024-12-26] MEDS: Lipase/Prot/Amylase 12/38/60K CAPSULE.DR 1 CAP PO ×3 (08:31→17:12)
[2024-12-26] MEDS: Mirabegron 50 MG TAB.ER.24H PO (08:33)
--- NOTE | 2024-12-26 10:32 | MHC.CLN ---
F/U DIET ADVANCED TO REGULAR, BLAND ON 12/24. PO INTAKE 25-75%. VOMITING REPORTED. CONTINUE TO FOLLOW FOR PO INTAKE AND DIET TOLERANCE.
[2024-12-26] MEDS: diazePAM 10 MG/2 ML CARTRIDGE 5 MG IVPUSH (12:36)
--- NOTE | 2024-12-26 14:34 | HO.PM.IMPN ---
Subjective Subjective Date of Service: 12/26/24 Interval History: Still with limited p.o. intake. States she does tolerate the clear ensure. Very teary and anxious this a.m. Review of Systems Denies chest pain Denies shortness of breath admits to nausea with intermittent vomiting and diarrhea Admits to diffuse mild abdominal pain Denies fever chills Physical Exam Vital Signs: Vital Signs: Last Vital Signs Temp 98.2 F 12/26/24 11:35 Pulse 88 12/26/24 11:35 Resp 16 12/26/24 11:35 BP 141/76 H 12/26/24 11:35 Pulse Ox 96 12/26/24 11:35 O2 Del Method Room Air 12/26/24 11:35 BMI result Body Mass Index 39.2 Const: Other: Awake alert ill-appearing Resp: Other: Clear to auscultation bilaterally no rales rhonchi or wheezes Cardio: Other: No S4; positive S1-S2; no S3 murmurs rubs or gallops GI: Other: Soft nontender nondistended normoactive bowel sounds Objective Data Active Medications Acetaminophen (Acetaminophen 325 Mg Tablet) 650 mg PO Q6H PRN PRN Reason: Pain, Mild 1-3,fever,headache Albuterol/Ipratropium (Albuterol/Iprat 2.5/0.5mg 3 Ml Ampul.Neb) 3 ml INHALE Q4H PRN PRN Reason: Shortness of Breath/Wheezing Lipase/Protease/Amylase (Lipase/Prot/Amylase 12/38/60k Capsule.Dr) 1 cap PO QID [facility] Last Admin: 12/26/24 12:44 Dose: 1 cap Documented By: DEISY Calcium Carbonate (Calcium Carbonate 750 Mg Tab.Chew) 750 mg PO Q4H PRN PRN Reason: Heartburn Clonazepam (Clonazepam 1 Mg Tablet) 1 mg PO TID [facility] Last Admin: 12/26/24 08:32 Dose: 1 mg Documented By: DEISY Docusate Sodium (Docusate Sodium 100 Mg Capsule) 100 mg PO BID [facility] Last Admin: 12/26/24 08:32 Dose: 100 mg Documented By: DEISY Enoxaparin Sodium (Enoxaparin Sodium 40 Mg/0.4 Ml Syringe) 40 mg SUBCUT Q24H [facility] Last Admin: 12/26/24 05:23 Dose: 40 mg Documented By: MINNIE Hydromorphone HCl (Hydromorphone Hcl 1 Mg/Ml Syringe) 1 mg IVPUSH Q4H PRN; Protocol PRN Reason: Pain, Severe (Pain Scale 7-10) Last Admin: 12/26/24 12:40 Dose: 1 mg Documented By: DEISY Hydroxyzine HCl (Hydroxyzine Hcl 25 Mg Tablet) 25 mg PO BEDTIME [facility] Last Admin: 12/25/24 21:23 Dose: 25 mg Documented By: MINNIE Lactated Ringer's (Lr) 1,000 mls @ 125 mls/hr IVCONT .Q8H [facility] Last Admin: 12/26/24 09:43 Dose: 125 mls/hr Documented By: DEISY Lamotrigine (Lamotrigine 25 Mg Tablet) 50 mg PO BEDTIME [facility] Last Admin: 12/25/24 21:23 Dose: 50 mg Documented By: MINNIE Lamotrigine (Lamotrigine 100 Mg Tablet) 200 mg PO DAILY [facility] Last Admin: 12/26/24 08:31 Dose: 200 mg Documented By: DEISY Magnesium Hydroxide (Milk Of Magnesia 30 Ml Oral.Susp) 30 ml PO DAILY PRN On Hold: 12/21/24 17:20 PRN Reason: Constipation Melatonin (Melatonin 3 Mg Tablet) 6 mg PO BEDTIME PRN PRN Reason: Insomnia Metoclopramide HCl (Metoclopramide Hcl 10 Mg/2 Ml Vial) 10 mg IVPUSH Q4H PRN PRN Reason: Nausea Last Admin: 12/26/24 08:33 Dose: 10 mg Documented By: DEISY Mirabegron (Mirabegron 50 Mg Tab.Er.24h) 50 mg PO DAILY [facility] Last Admin: 12/26/24 08:33 Dose: 50 mg Documented By: DEISY Ondansetron HCl (Ondansetron Hcl 4 Mg/2 Ml Vial) 4 mg IVPUSH Q8H PRN PRN Reason: Nausea and Vomiting Last Admin: 12/26/24 11:48 Dose: 4 mg Documented By: DEISY Polyethylene Glycol (Polyethylene Glycol 3350 17 Gm Powd.Pack) 17 gm PO DAILY PRN On Hold: 12/21/24 17:20 PRN Reason: Constipation Promethazine HCl (Promethazine Hcl 25 Mg Supp.Rect) 25 mg [place] Q6H PRN PRN Reason: Nausea and Vomiting Last Admin: 12/25/24 21:34 Dose: 25 mg Documented By: CASTILYenny Sodium Chloride (0.9 % Sodium Chloride Flush 3 Ml Syringe) 3 ml IVFLUSH QSHIFT [facility] Last Admin: 12/26/24 08:43 Dose: Not Given Documented By: DEISY Non-Admin Reason: IV Running Sucralfate (Sucralfate 1 Gm Tablet) 1 gm PO BID [facility] Last Admin: 12/26/24 08:32 Dose: 1 gm Documented By: DEISY Valacyclovir HCl (Valacyclovir Hcl 500 Mg Tablet) 500 mg PO DAILY [facility] Last Admin: 12/26/24 08:31 Dose: 500 mg Documented By: DEISY Vitamin D (Cholecalciferol (Vitamin D3) 25 Mcg Tablet) 125 mcg PO DAILY [facility] Last Admin: 12/26/24 08:32 Dose: 125 mcg Documented By: DEISY Vortioxetine (Vortioxetine Hydrobromide 20 Mg Tablet) 20 mg PO DAILY [facility] Last Admin: 12/26/24 08:32 Dose: 20 mg Documented By: DEISY Labs 12/21/24 05:06 12/25/24 10:00 Assessment and Plan (1) Gastroparesis: Status: Acute (2) Nausea & vomiting: Status: Acute Plan 44-year-old female with past medical history colitis with recent colostomy, Alopecia, IBS, interstitial cystitis, occipital neuralgia of the right side, epidural cyst L2-L5, chronic pain, brain lesions (told it is not MS), seizures (last sz 4 months ago), hystrectomy for hyperplasia and risk for 0 cancer, MDD, PTSD presents to ED today after experiencing intractable abdominal pain, 10/10 after eating breakfast this morning patient also has a associated gastroparesis with persistent nausea and vomiting. Patient states it has gotten to the point that it is virtually impossible for her to eat solids. Patient has lost 9 lb in the last 2 weeks. 1.Intractable abdominal pain, norovirus positive... In backdrop of chronic gastroparesis -labs responded to volume. -antiemetics as ordered -Dilaudid PRN -p.r.n. Valium for anxiety -recheck labs in a.m.... Nutrition following 2.Hx Seizure disorder -no recent seizures -continue current therapies 3.GERD -Protonix IV.. Switch to p.o. when appropriate 4.Anxiety/MDD/PTSD -stable and well compensated -adjust as indicated Lovenox Full Code Requires ongoing hospitalization for supplemental IV fluids and antiemetics to treat norovirus in the backdrop of gastroparesis. Patient extremely high risk for outpatient failure Quality Stroke Does the patient have a stroke diagnosis?: No Reason for No Anti-thrombotic by Day Two: N/A - Med Ordered VTE Prior VTE?: No VTE Risk Level:: Medical - moderate - high VTE Device Contraindication: N/A - Device Ordered VTE Drug Contraindication: N/A - Med Ordered
[2024-12-26] MEDS: 0.9 % Sodium Chloride Flush 3 ML SYRINGE IVFLUSH ×2 (15:26→19:32)
[2024-12-27 03:32] VITALS: BP 107/61; PULSE 80; RESP 18; TEMP 36.5; O2SAT 94
[2024-12-27 08:00] VITALS: BP 113/52; PULSE 81; RESP 16; TEMP 36.8; O2SAT 96
[2024-12-27] MEDS: Lactated Ringers 1,000 ML 125 ML IVCONT (08:03)
[2024-12-27] MEDS: 0.9 % Sodium Chloride Flush 3 ML SYRINGE IVFLUSH (08:07)
[2024-12-27] MEDS: Mirabegron 50 MG TAB.ER.24H PO (08:11)
[2024-12-27] MEDS: Lipase/Prot/Amylase 12/38/60K CAPSULE.DR 1 CAP PO ×2 (08:11→12:54)
--- NOTE | 2024-12-27 11:44 | PM.DS ---
DS: Providers Provider Date of Service: 12/27/24 Date of admission: 12/22/24 13:46 Date of discharge: 12/27/24 Primary care physician: Caitlin Harding MD Consults: 12/21/24 05:00 Consult to Gastroenterology Routine Consulting Provider: Esteban Valdes Reason for consultation: intractable abdominal pain, gastroparesis, hx of colitis and colostomy Has provider been notified: No 12/21/24 06:04 Consult to Case Management Routine Comment: Insurance does not cover gastro Neuro referral, gu DS: Diagnosis Discharge Diagnosis (1) Gastroparesis: Status: Acute (2) Nausea & vomiting: Status: Acute DS: Summary Hospital Course Hospital Course: 44-year-old female with past medical history colitis with recent colostomy, Alopecia, IBS, interstitial cystitis, occipital neuralgia of the right side, epidural abscess L2-L5, chronic pain, brain lesions (told it is not MS), seizures (last sz 4 months ago), hystrectomy for hyperplasia and risk for 0 cancer, MDD, PTSD presents to ED today after experiencing intractable abdominal pain, 10/10 after eating breakfast this morning patient also has a associated gastroparesis with persistent nausea and vomiting. Patient states it has gotten to the point that it is virtually impossible for her to eat solids. Patient has lost 9 lb in the last 2 weeks. Patient has transitioned to ensure and can tolerate the ensure regularly. Patient also states the stool in her colostomy has been more green in color. Patient is not having any fever, chills, night sweats and is reporting no chest pain or shortness of breath at rest. Patient reports ongoing alopecia and hair loss with no known explanation. Patient states the intermittent pain, nausea and gastroparesis has been ongoing for months since her colostomy has been placed. Some of patient's symptoms started 3 years ago after she had her gallbladder removed. Patient states colostomy was placed electively for chronic diarrhea and constipation issues related to IBS. There was thoughts that patient has sigmoid stricture but this was ruled out during surgery for colostomy. Patient is still follows with Dr. Allen. Hospital Course Patient admitted to general medical floor given supplemental IV fluid and antiemetics. She also received pulse dose IV Dilaudid for stomach pain. Her recovery was slow and drawn out. On the day of discharge she is able to tolerate some solids in his taken clear ensure. Patient states she feels well enough to go home. At this point in time she is medically acceptable for same Time Attestation Discharge Coordination Time (in mins): 35 Quality: Safe Use of Opioids Does Pt have an Active Cancer Diagnosis on the Problem List?: No Quality: Stroke Does the patient have a stroke diagnosis?: No Physical Exam Vital Signs: Vital Signs: Last Vital Signs Temp 98.2 F 12/27/24 08:00 Pulse 81 12/27/24 08:00 Resp 16 12/27/24 08:00 BP 113/52 L 12/27/24 08:00 Pulse Ox 96 12/27/24 08:00 O2 Del Method Room Air 12/27/24 08:00 BMI result Body Mass Index 39.2 Const: Other: Awake alert ill-appearing Resp: Other: Clear to auscultation bilaterally no rales rhonchi or wheezes Cardio: Other: No S4; positive S1-S2; no S3 murmurs rubs or gallops GI: Other: Soft nontender nondistended normoactive bowel sounds DS: Data Data Completed and Pending Completed studies during hospitalization [Text1]: Procedures Bypass Sigmoid Colon to Cutaneous, Open Approach (08/12/24) Dilation of Stomach, Via Natural or Artificial Opening Endoscopic (12/07/24) Drainage of Abdomen Subcutaneous Tissue and Fascia, Percutaneous Approach (08/12/24) Drainage of Large Intestine, Via Natural or Artificial Opening Endoscopic (07/25/24) Excision of Duodenum, Via Natural or Artificial Opening Endoscopic, Diagnostic (12/07/24) Excision of Lower Esophagus, Via Natural or Artificial Opening Endoscopic, Diagnostic (12/07/24) Excision of Rectum, Via Natural or Artificial Opening Endoscopic, Diagnostic (07/25/24) Excision of Sigmoid Colon, Via Natural or Artificial Opening Endoscopic, Diagnostic (07/25/24) Excision of Stomach, Pylorus, Via Natural or Artificial Opening Endoscopic, Diagnostic (12/07/24) Introduction of Anesthetic Agent into Peripheral Nerves and Plexi, Percutaneous Approach (08/12/24) Discharge Plan Discharge Anticipated Discharge Date/Time: 12/27/24 11:30 Patient Disposition: Home, Self-Care Discharge Diagnosis: Intractable abdominal pain Referrals: Caitlin Harding MD [Primary Care Provider, Psychiatry] - 1 Week Discharge Medications: New oxycodone 10 mg tablet 10 mg PO Q6H PRN (Reason: pain) Qty: 20 0RF Rx Instructions: Partial Fill upon patient request. Continued metoclopramide HCl 5 mg tablet 5 mg PO Q8H PRN (Reason: nausea and vomiting) Qty: 20 0RF Creon 12,000-38,000 -60,000 unit capsule,delayed release(DR/EC) 1 cap PO QID Qty: 120 0RF Rx Instructions: administer with meals and/or snacks -- MAX OF 4 CAPS PER DAY. sucralfate 1 gram tablet 1 g PO BID Qty: 60 3RF valacyclovir 500 mg tablet 500 mg PO DAILY Trintellix 20 mg tablet 20 mg PO DAILY lamotrigine 200 mg tablet 200 mg PO DAILY Rx Instructions: 200mg in morning, 25mg at night lamotrigine 25 mg tablet 50 mg PO BEDTIME Rx Instructions: 200mg in morning, 25mg at night docusate sodium [Colace] 100 mg capsule 100 mg PO BID Qty: 60 3RF clonazepam 1 mg tablet,disintegrating 1 mg PO TID pantoprazole 40 mg tablet,delayed release (DR/EC) 40 mg PO DAILY@0630 prucalopride [Motegrity] 2 mg tablet 2 mg PO DAILY magnesium oxide 400 mg magnesium capsule 400 mg PO DAILY bisacodyl 5 mg tablet,delayed release (DR/EC) 10 mg PO BEDTIME mirabegron [Myrbetriq] 50 mg tablet extended release 24 hr 50 mg PO DAILY hydroxyzine HCl 25 mg tablet 25 mg PO BEDTIME cholecalciferol (vitamin D3) 125 mcg (5,000 unit) capsule 125 mcg PO DAILY Qty: 90 3RF eszopiclone [Lunesta] 3 mg tablet 3 mg PO BEDTIME ondansetron 4 mg tablet,disintegrating 4 mg PO Q8H PRN (Reason: nausea and vomiting) Qty: 30 1RF esomeprazole magnesium 40 mg capsule,delayed release(DR/EC) 40 mg PO DAILY Qty: 90 5RF Rx Instructions: before meals Discharge Orders: Discharge Order (Routine); Ordered 12/27/24 Ordered By: Roland Anderson Diet: Advance to usual diet Activity on Discharge: As tolerated Stand Alone Forms: Patient Portal Discharge page Print Language: Venezuelan Care Plan Goals: Utilize oxycodone as needed for pain. Otherwise resume all home medications Health Concerns: Continue to supplement with clear ensure as tolerated Plan of Treatment: Follow up with the PCP as scheduled Assessment: See discharge summary
[2024-12-27 12:00] VITALS: BP 115/62; PULSE 97; RESP 18; TEMP 36.9; O2SAT 97
--- NOTE | 2024-12-27 14:52 | MHC.CM.PN ---
PT CLEARED TO DC HOME TODAY WITH NO SERVICES VIA PRIVATE TRANSPORT
== END 2024-12-27 13:27 | disposition home or self-care (01) | DRG 249 ==
LOC: HO.ED 01:28 → HO.EDOVER 04:54 → HO.S3 19:42
PROVIDERS: Internal Medicine; Nurse Practitioner Family; Admitting Provider Internal Medicine; Emergency Provider Emergency Medicine Emergency Medical Services; PCP Psychiatry & Neurology Psychiatry; Visit Provider Hospitalist
DX: A08.11 Acute gastroenteropathy due to Norwalk agent (principal); E66.01 Morbid (severe) obesity due to excess calories; Z93.3 Colostomy status; Z68.39 Body mass index [BMI] 39.0-39.9, adult; Z71.3 Dietary counseling and surveillance; L65.9 Nonscarring hair loss, unspecified; K31.84 Gastroparesis; K21.00 Gastro-esophageal reflux disease with esophagitis, without bleeding; F43.10 Post-traumatic stress disorder, unspecified; F41.9 Anxiety disorder, unspecified; F32.9 Major depressive disorder, single episode, unspecified; Z79.899 Other long term (current) drug therapy
CPT/HCPCS: 36415; 71045; 74177; 76705; 80048; 80053; 80175; 81003; 82248; 83540; 83690; 83735; 84484; 84702; 85025; 87507; 93005; 97110; 97161; 97162; 97530; 99285; J1171; J1650; J2405; J2470; J2765; J3360; J3480; J7120; Q9967

== ENCOUNTER → 2024-12-21 00:40 | Outpatient (BNV) | payer OTHER, SELFPAY | PROVIDERS: Admitting Provider Internal Medicine; Emergency Provider Emergency Medicine Emergency Medical Services; Visit Provider Internal Medicine | DX: R00.0 Tachycardia, unspecified (principal) | CPT/HCPCS: 93010 ==

== ENCOUNTER → 2024-12-21 01:07 | Outpatient (BNV) | payer OTHER, SELFPAY | PROVIDERS: Emergency Provider Emergency Medicine Emergency Medical Services; Visit Provider Radiology Neuroradiology | DX: R10.13 Epigastric pain (principal); J98.4 Other disorders of lung | CPT/HCPCS: 71045; 74177 ==

== ENCOUNTER → 2024-12-21 04:44 | Outpatient (BNV) | payer OTHER, SELFPAY | PROVIDERS: Admitting Provider Internal Medicine; Emergency Provider Emergency Medicine Emergency Medical Services; Visit Provider Internal Medicine | DX: K31.84 Gastroparesis (principal) | CPT/HCPCS: 99223; 99232; 99499 ==

== ENCOUNTER 2024-12-22 13:46 | Outpatient (BNV) | payer OTHER, SELFPAY | END 2024-12-22 17:02 | PROVIDERS: Admitting Provider Internal Medicine; Emergency Provider Emergency Medicine Emergency Medical Services; PCP Psychiatry & Neurology Psychiatry; Visit Provider Radiology Diagnostic Radiology | DX: R10.13 Epigastric pain (principal) | CPT/HCPCS: 76705 ==

== ENCOUNTER 2024-12-29 00:19 | Observation (INO) | payer OTHER, SELFPAY ==
--- OUTSIDE RECORDS SUMMARY | 2024-01-02 10:45 | XMS_ITS | Encounter Summary ---
Author Organization [employer] Address [address] [place] [address] Care Team Providers Care Jumbo Operator Name Role Phone Nori Posey MD Primary Care Provider +1 [phone] Encounter Details Date Type Department Care Team (Late st Contact Info) Description 01/02/2024 10:45 AM EDT Hospital Encounter TH HISTORIC ENCOUNTERS EASTERN CONVERSION ONLY Yossi Marina MD 175 [place] [address] Social History Tobacco Use Types Packs/Day Years [...] 3:17 PM EDT Nadia Wolfe RN * [place] Suicide Severity Rating Scale (Screener/Recent Self-Report) Question [...] home since Sunday. Still has a black [place] in visual field of L eye. Still [...] ambulation ?? 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 The majority of the actual pxie-wq-yiqn visit was spent counseling the patient with respect to the current neurological picture. Yossi Marina MD documented in this encounter Plan of Treatment Upcoming Encounters Date Type Department Care Team (Late st Contact Info) Description 03/24/2025 11:30 AM EST Office Visit Internal Medicine - [address] [place] [phone] Janet Harding MD [address] [place] [address] 03/31/2025 11:00 AM EST Office Visit [facility] [address] [place] [phone] Rocío Watkins PA [address] [place] [address] documented as of this encounter Visit Diagnoses Not on filedocumented in this encounter Care Teams Jumbo Operator Relationship Specialty Start Date End Date Nori Posey MD PCP - General 01/30/23 04/22/24 documented as of this encounter
[2024-12-29] VITALS (9 sets, daily range): BP systolic 95–137; BP diastolic 46–75; PULSE 70–94; RESP 16–18; TEMP 36.4–37; O2SAT 94–99; BMI 40.0
--- NOTE | ~2024-12-29 | US_ITS ---
CLINICAL HISTORY: swelling from IV, r o UEDVT --- Additional Notes or Special Instructions: BILATERAL SWELLING Venous duplex ultrasound bilateral upper extremity Comparison: None provided Findings: Accessible deep venous segments are fully compressible with normal Doppler color flow and spectral tracings. There is no flow or compressibility of the left cephalic vein. IMPRESSION: 1. Negative for bilateral upper extremity deep vein thrombosis. 2. Left cephalic superficial venous thrombus. This document has been electronically signed by: Fer Piña MD on 12/31/2024 18:57:48
--- NOTE | ~2024-12-29 | XR_ITS ---
CLINICAL HISTORY: history of colectomy colostomy, new bloating 2 view abdomen Comparison: CT/REG/SR - CT ABDOMEN PELVIS W IV CON - 12/21/24 02:25 EDT Findings: Bowel-gas pattern is nonobstructive. There is no free air. There are fluid levels within the colon. There are cholecystectomy clips. Impression: 1. Nonobstructive bowel-gas pattern. 2. Fluid levels within the colon. Correlate for diarrhea. This document has been electronically signed by: Rubén Murcia MD on 12/29/2024 04:00:36
--- OUTSIDE RECORDS SUMMARY | 2024-12-29 00:44 | XMS_ITS | Clinical Summary ---
Author Organization [facility] Address [address] [place] [address] Phone Care Team Providers Care Broomcorn Thresher Name Role Phone Janet Harding MD Primary Care Provider [phone] Allergies Active Allergy Reactions Criticality Noted Date [...] Noted Date Diagnosed Date Colostomy in place ([facility] V24, [facility] V28) Class 1 obesity 11/24/2024 Internal [...] 2:40 PM EDT Consult Gastroenterology - [address] [address] Julian Sanchez MD Slow transit constipation (Primary Dx); Gastroparesis 2024 Telephone Internal Medicine - [facility] [address] [place] [address] Janet Harding MD 10/29/2024 8:36 AM EDT - 10/29/2024 11:59 PM EDT Hospital Encounter [facility] MRI [address] [place] [address] Gait abnormality; Migraine without status migrainosus, not intractable, unspecified migraine type Discharge Disposition: Home or Self Care 10/29/2024 8:29 AM EDT - 10/29/2024 11:59 PM EDT Hospital Encounter [facility] MRI [address] [place] [address] Gait abnormality; Migraine without status migrainosus, not intractable, unspecified migraine type Discharge Disposition: Home or Self Care from Last 3 Months Immunizations Immunization Administration Dates Next Due Tdap Tetanus diptheria acell ular pertussis (Boostrix; Adacel) 7yo and older 05/04/2023 Surgical History Surgery Date Site/Laterality Comments CHOLECYSTECTOMY PROCEDURE: AR LAPAROSCOPY SURG CHOLECYSTECTOMY HYSTERECTOMY 2014 PROCEDURE: HISTORICAL [...] stress disorder) Suicide and self-inflicted i njury ([facility] V24, [facility] V28) DX:Suicide and self-inflict ed injury ([facility]) Major depression, chronic DX:Percy or depression, [...] DX:Guaiac positive stools Hematuria DX:Hematuria Uterine cancer ([facility] V24, [facility] V28) 2014 DX:Uterine cancer ([facility]) Interstitial cystitis DX:Interst itial cystitis Herpes [...] AM EST Office Visit Internal Medicine - [facility] [address] [place], [place] [phone] Janet Harding MD [address] [place], [place] 03/31/2025 11:00 AM EST Office Visit [facility] [address] [facility] [address] [place] [id number] Rocío Watkins PA [address] [facility] [address] [place] [address] Health Maintenance Due Date Last Done Comments Hepatitis B Vaccines (1 of 3 - 19+ 3-dose series) 2000 Cervical Cancer Screening: P ap Smear 2002 HPV Vaccines (1 - 3-dose SCD M series) 2008 COVID-19 Vaccine (3 - Modern a risk [...] Results * External clinical lab (12/08/2024) Provider [facility] LAB BLOOD ORDERABLES Fin al Result * External Nuc Med Report (11/12/2024) Anatomical Region Laterality Modality [facility] NM [facility]EDURES Final Result [...] Signed Date: 10/29/2024 15:57 ET Workstation ID: [id number] Transcribed By: Self Edit Transcribed Date: 10/29/2024 [...] Signed Date: 10/29/2024 15:57 ET Workstation ID: [id number] Transcribed By: Self Edit Transcribed Date: 10/29/2024 [...] Signed Date: 10/29/2024 16:00 ET Workstation ID: [id number] Transcribed By: Self Edit Transcribed Date: 10/29/2024 [...] Signed Date: 10/29/2024 16:00 ET Workstation ID: [id number] Transcribed By: Self Edit Transcribed Date: 10/29/2024 [...] AM EST Narrative 06/05/2022 11:27 AM EST [facility] Diagnostic Imaging Department [address] [place] [address] Patient: LUIS REDDPAULA D.O.B./Age/Sex: 1980 - 41 - F Unit#: [id number] Location/Status: [facility] CLI Mnemonic/Ordering Site: DIGSC/SPMAM Ordering Physician: VIDAL GARY DO Tay Screening Digital - 06/05/22854 EXAM: Tay Screening Digital EXAM DATE AND TIME: 06/05/2022 8:56 AM HISTORY: Screening. Baseline exam. Maternal grandmother had breast carcinoma. COMPARISON: No comparison imaging. TECHNIQUE: CC and MLO views of both breasts were obtained using full field digital mammography. Bilateral digital breast tomosynthesis was performed in the MLO projection. Computer aided detection with [employer] 7.2-H and Flynn 3D 3.1 was employed. TISSUE DENSITY: b. [...] Routine screening mammogram BILATERAL in 1 year. [address]0230, 44611 3341F, 7025F Dictating Physician: KIYA MYLES MD Electronically Signed by: KIYA MYLES MD Dic Date/Time: 06/05/22 1126 Sign date/Time: 06/05/22 1127 Procedure Note Kiya Myles MD - 05/04/2023 [facility] Diagnostic Imaging Department [address] [place] [address] Patient: PAULA JULES./Age/Sex: 1980 - 41 - F Unit#: [id number] Location/Status: [facility] Mnemonic/Ordering Site: [facility] Ordering Physician: VIDAL GARY DO [facility] Screening Digital - 06/05/22 - 0855 EXAM: [facility] Screening Digital EXAM DATE AND TIME: 06/05/2022 8:56 AM HISTORY: Screening. Baseline exam. Maternal grandmother had breastcarcinoma. COMPARISON: No comparison imaging. TECHNIQUE: CC and MLO views of both breasts were obtained using fullfield digital mammography. Bilateral digital breast tomosynthesis was performedin the MLO projection. Computer aided detection with [employer] 7.2-H andFlynn 3D 3.1 was employed. TISSUE DENSITY: b. [...] Routine screening mammogram BILATERAL in 1 year. 27081, 10042 3341F, 7025F Dictating Physician: KIYA MYLES MD [...] Most Recently Relevant to Health Maintenance Insurance [employer] Care Teams Broomcorn Thresher Relationship Specialty Start Date End Date Janet Harding MD [address] [place] [address] PCP - General Internal Medicine 08/04/24
--- OUTSIDE RECORDS SUMMARY | 2024-12-29 00:44 | XMS_ITS | Clinical Summary ---
Author Organization [employer] [facility] Address [address] [place] [address] Care Team Providers Care Decorator Consultant Name Role Phone Nori Posey MD Primary Care Provider [phone] Allergies Active Allergy Reactions Criticality Noted Date Comments Severn 08/30/2023 Medications Medication Sig Dispensed Refills Start [...] age to complete this topic Care Teams Decorator Consultant Relationship Specialty Start Date End Date Nori Posey MD [address] [place] [id number] PCP - General Internal Medicine 08/01/23
[2024-12-29 02:05] LABS: Hematocrit 39.1 % (37.0-47.0); Hemoglobin 13.1 g/dl (12.0-16.0); Imm Gran Abs Auto 0.02 X10*3/uL (0.00-0.03); Imm Gran Pct Auto 0.3 % (0.0-0.4); Lymphocytes Absolute Auto 2.6 X10*3/uL (1.2-4.9); MANUAL DIFF FLAG NO; Mean Corpuscular HGB Conc 33.5 g/dl (31.0-35.0); Mean Corpuscular Hemoglobin 26.8 pg (27.0-33.0); Mean Corpuscular Volume 80.0 fL (80.0-98.0); NRBC Abs Auto 0.000 X10*3/uL (0.0-0.012); NRBC Pct Auto 0.0 /100WBC (0.0-0.2); Platelet Count 425 X10*3/uL (160-400); Red Blood Count 4.89 X10*6/uL (4.20-5.50); White Blood Count 6.3 X10*3/uL (4.8-10.8)
[2024-12-29 02:20] LABS: Alanine Aminotransferase 46 U/L (0-31); Albumin Level 3.9 g/dL (3.5-5.0); Alkaline Phosphatase 77 U/L (39-117); Anion Gap 10 (12-20); Aspartate Amino Transferase 40 U/L (5-31); Blood Urea Nitrogen 8 mg/dL (9-16); Calcium 9.0 mg/dL (8.4-10.2); Carbon Dioxide 26 mmol/L (22-29); Chloride 108 mmol/L (96-108); Creatinine Clr Calc Pharmacy 123.7; Estimated Glomerular Filt Rate > 60; Lipase 18 U/L (8-78); Magnesium 1.9 mg/dL (1.6-2.6); Potassium 3.4 mmol/L (3.3-5.1); Sodium 141 mmol/L (135-145); Total Protein 7.0 g/dL (6.5-8.0)
[2024-12-29 04:41] LABS: CDiff Gene PCR NEGATIVE (Negative)
[2024-12-29] MEDS: Lactated Ringers 1,000 ML 999 ML IV (05:20)
--- NOTE | 2024-12-29 05:52 | ED.ABDPAIN ---
HPI - Abdominal Pain General Chief Complaint: Abdominal Pain Stated Complaint: abd pain Time Seen by Provider: 12/29/24 01:45 Source: patient, RN notes reviewed and old records reviewed Mode of arrival: ambulatory Limitations: no limitations History of Present Illness ED Provider: Dr. La Copeland HPI narrative: 44-year-old female with extensive past medical history including gastroparesis, IBS status post colostomy placement, interstitial cystitis presenting with epigastric abdominal pain radiating throughout the upper abdomen. Describes a bloating sensation that is more severe than normal. Also has been having issues with increased output from the colostomy. Has emptied her bag 6 times today which is more than normal. Of note, she was recently diagnosed with norovirus about 8 days ago. Has had daily vomiting and loose bowel movements. No reported fever. Denies chest pain or difficulty breathing. No other known sick contacts, recent antibiotic use or travel. Related Data Home Medications ?Medication ?Instructions ?Recorded ?Confirmed lamotrigine 200 mg tablet 200 mg PO DAILY 01/02/23 12/21/24 valacyclovir 500 mg tablet 500 mg PO DAILY 01/02/23 12/21/24 vortioxetine 20 mg tablet 20 mg PO DAILY 01/02/23 12/21/24 (Trintellix) hydroxyzine HCl 25 mg tablet 25 mg PO BEDTIME 01/08/24 12/21/24 lamotrigine 25 mg tablet 50 mg PO BEDTIME 01/08/24 12/21/24 bisacodyl 5 mg tablet,delayed 10 mg PO BEDTIME 07/25/24 12/21/24 release mirabegron 50 mg tablet,extended 50 mg PO DAILY 07/25/24 12/21/24 release 24 hr (Myrbetriq) eszopiclone 3 mg tablet (Lunesta) 3 mg PO BEDTIME 08/06/24 12/21/24 clonazepam 1 mg disintegrating 1 mg PO TID 12/08/24 12/21/24 tablet pantoprazole 40 mg tablet,delayed 40 mg PO DAILY@0630 12/08/24 12/21/24 release magnesium oxide 400 mg PO DAILY 12/21/24 12/21/24 prucalopride 2 mg tablet 2 mg PO DAILY 12/21/24 12/21/24 (Motegrity) Previous Rx's ?Medication ?Instructions ?Recorded cholecalciferol (vitamin D3) 125 125 mcg PO DAILY #90 caps 05/30/24 mcg (5,000 unit) capsule docusate sodium 100 mg capsule 100 mg PO BID #60 caps 08/20/24 (Colace) metoclopramide HCl 5 mg tablet 5 mg PO Q8H PRN nausea and 11/13/24 vomiting #20 tabs esomeprazole magnesium 40 mg 40 mg PO DAILY #90 caps 11/24/24 capsule,delayed release ondansetron 4 mg disintegrating 4 mg PO Q8H PRN nausea and 11/24/24 tablet vomiting #30 tabs [id number] 1 cap PO QID #120 caps 11/25/24 12,000-38,000-60,000 unit capsule,delayed rel (Creon) sucralfate 1 gram tablet 1 g PO BID #60 tabs 12/17/24 oxycodone 10 mg tablet 10 mg PO Q6H PRN pain #20 tabs 12/27/24 Allergies Allergy/AdvReac Type Severity Reaction Status Date / Time propofol Allergy Intermediate Itching Verified 12/29/24 00:33 morphine Allergy Mild Itching Verified 12/29/24 00:33 Review of Systems Review of Systems As per HPI, full review of systems performed and negative but for the above mentioned pertinent positives and negatives. [facility] Past Medical History Medical History History of lumbar puncture (06/13/23) Seizures Hx of Postprocedural seroma of skin and subcutaneous tissue following other procedure Colostomy in place Hx of flexible sigmoidoscopy (07/26/24) Proctosigmoiditis Stricture of sigmoid colon Colon wall thickening Obesity, Class II, BMI 35-39.9 IBS (irritable bowel syndrome) History of colitis Gastric ulcer Interstitial cystitis Occipital neuralgia of right side History of suicidal ideation Anxiety Agoraphobia MDD (major depressive disorder) PTSD (post-traumatic stress disorder) Surgical History History of colon surgery (08/12/24) History of tonsillectomy and adenoidectomy Hx of appendectomy H/O endoscopy (12/09/24) Hx of colonoscopy Hx of section H/O: hysterectomy Hx of cholecystectomy (~12/2022) Family History Family History Father Prostate cancer Maternal Uncle Colon cancer Maternal Grandmother Breast cancer Social History Social History Household Members: Spouse and Family Housing: House Do you presently have visiting nurse or other home services: Yes ([employer]) Alcohol intake: never 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 Patient Tobacco Use Status: Former Tobacco user Smoked in Last 30 Days: No e-Cigarette/Vaping Use: Never Used Use of substances other than those prescribed or required for medical reasons: No Substance Use Type: Marijuana Advance Directives: No Advance Directives Information Provided: No service: No Physical Exam ED Exam Exam: GENERAL: Ill-Appearing, appears uncomfortable. SKIN: Normal skin color for ethnicity, warm, dry, no rashes noted. HEENT:? Normocephalic, atraumatic, no stridor, dry mucous membranes, dentition intact, EOMI. NECK: Soft, supple, full ROM, midline structures nontender, no step-offs, no deformities, no lymphadenopathy. CHEST: Heart regular rhythm, no murmurs, symmetric chest rise and fall. PULMONARY: Clear to auscultation bilaterally, diminished at the bases, no labored breathing, no wheezes/rhales/rhonchi. ABDOMINAL: Softly distended, diffusely tender to palpation without rebound or guarding, quiet bowel sounds in all quadrants, colostomy in place in the left lower quadrant. : Deferred. MUSCULOSKELETAL: Normal tone, full range of motion, no deformities, no peripheral edema. NEURO: Alert and oriented x3, CN II through XII intact, equal strength and sensation bilateral upper and lower extremities, no focal neurologic deficits.? PSYCHIATRIC: Flat affect, fluid speech, good eye contact and appropriate demeanor. Vital Signs: Vital Signs - 24 hr 12/29/24 00:28 12/29/24 01:48 12/29/24 04:01 Temperature 98.2 F 98.6 F 98.3 F Pulse Rate 94 83 75 Respiratory Rate 18 18 Blood Pressure 137/68 118/75 95/51 L Pulse Oximetry 99 98 94 Oxygen Delivery Method Room Air Room Air Room Air BMI result Body Mass Index 40.0 Procedures Procedure Narrative Procedure Narrative: Ultrasound-guided IV 20 gauge 1-3/4 inch IV placed in left upper extremity, adequate blood return, flushes well secured with Tegaderm. Performed by Adalgisa Maddox PA-C Medical Decision Making Medical Decision Making MDM Narrative: This patient presents today with a chief complaint of abdominal pain. Differential diagnosis for this patient is broad. It includes gastroparesis, gastroenteritis, bowel obstruction, peptic ulcer disease, pyelonephritis, vascular pathology, among many others. A broad-based workup based on history and physical examination was obtained. 6:47 AM 12/29/2024 (Dr. La Copeland, D.O.) workup this morning has been reassuring. X-ray does not show evidence of obstructing pattern. She has some fluid-filled loops of bowel, consistent with a gastroenteritis that she has been battling for the last several days. She was diagnosed with norovirus at that time. She is not significantly dehydrated, a anemic or with any significant electrolyte abnormalities. She did not tolerate an oral challenge after Haldol. Added on Reglan. She occasionally has relief with Zofran but this has been an ongoing issue for her. She is supposed to be seeing a gastric motility specialist in [place] but has been having insurance issues. She is waiting for an appointment. We had an extensive discussion regarding options for care today. Our tentative plan will be to attempt a p.o. trial after Reglan. If she is unable to tolerate oral intake, she may need to be admitted for IV hydration and IV antiemetics. Her abdominal pain has resolved after a single dose of Haldol, Benadryl and Dilaudid. Differential Diagnosis Differential Diagnoses: The differential diagnosis associated with the presentation includes (As above) Admission/Observation Consideration of admission/observation: Escalation of care including admission/observation considered Lab Data [facility] Lab Attestation statement: I reviewed the patient's lab results. 12/29/24 02:00 12/29/24 02:00 Labs: Lab Results 12/29/24 12/29/24 Range/Units 02:00 03:35 WBC 6.3 (4.8-10.8) X10*3/uL RBC 4.89 (4.20-5.50) X10*6/uL Hgb 13.1 (12.0-16.0) g/dl Hct 39.1 (37.0-47.0) % MCV 80.0 (80.0-98.0) fL MCH 26.8 L (27.0-33.0) pg MCHC 33.5 (31.0-35.0) g/dl RDW 14.7 (11.0-16.0) % Plt Count 425 H (160-400) X10*3/uL MPV 9.7 (9.4-12.3) fL Immature Gran % (Auto) 0.3 (0.0-0.4) % Neut % (Auto) 48.3 (45-73) % Lymph % (Auto) 42.0 H (20-40) % [place] % (Auto) 7.0 (2-11) % Eos % (Auto) 1.9 (0-4) % Baso % (Auto) 0.5 (0-2) % Lymph # (Auto) 2.6 (1.2-4.9) X10*3/uL [place] # (Auto) 0.4 (0.1-1.2) X10*3/uL Eos # (Auto) 0.1 (0.0-0.4) X10*3/uL Baso # (Auto) 0.0 (0.0-0.2) X10*3/uL Abs Immat Gran (auto) 0.02 (0.00-0.03) X10*3/uL Absolute Neuts (auto) 3.0 (2.0-8.3) x10*3/uL Absolute Nucleated RBC 0.000 (0.0-0.012) X10*3/uL Nucleated RBC % (auto) 0.0 (0.0-0.2) /100WBC Sodium 141 (135-145) mmol/L Potassium 3.4 (3.3-5.1) mmol/L Chloride 108 (96-108) mmol/L Carbon Dioxide 26 (22-29) mmol/L Anion Gap 10 L (12-20) BUN 8 L (9-16) mg/dL Creatinine 0.67 (0.5-1.4) mg/dL Estim Creat Clear Calc 123.7 Estimated GFR > 60 Random Glucose 114 (60-115) mg/dL Calcium 9.0 (8.4-10.2) mg/dL Magnesium 1.9 (1.6-2.6) mg/dL Total Bilirubin 0.1 (0.0-1.0) mg/dL AST 40 H (5-31) U/L ALT 46 H (0-31) U/L Alkaline Phosphatase 77 (39-117) U/L Total Protein 7.0 (6.5-8.0) g/dL Albumin 3.9 (3.5-5.0) g/dL Lipase 18 (8-78) U/L C. difficile Tox B Gene NEGATIVE (Negative) Radiology Impression Discussion of test interpretation with radiology: I have reviewed the radiologist's reading. Radiologist Impression: 2 view abdomen Comparison: CT/REG/SR - CT ABDOMEN PELVIS W IV CON - 12/21/24 02:25 EDT Findings: Bowel-gas pattern is nonobstructive. There is no free air. There are fluid levels within the colon. There are cholecystectomy clips. Impression: 1. Nonobstructive bowel-gas pattern. 2. Fluid levels within the colon. Correlate for diarrhea. This document has been electronically signed by: Rubén Murcia MD on 12/29/2024 04:00:36 Independent Historian Clinical information obtained from an independent historian. History obtained from or confirmed by: Spouse External Record Review External record reviewed: Inpatient record Prescription Management I considered prescription management with: Other (Antiemetic) Chronic Conditions Patient?s care impacted by: Other (Gastroparesis, IBS) Social Determinants Patient?s care significantly limited by Social Determinants of Health including: Other Social Determinant of Health Medications Administered Generic Name Dose Route Start Last Admin Trade Name Freq PRN Reason Stop Dose Admin Lactated Ringer's 1,000 mls @ 999 mls/hr 12/29/24 05:14 12/29/24 05:20 Lr IV 12/29/24 06:14 999 mls/hr .Q1H1M ONE Administration Discontinued Medications Generic Name Dose Route Start Last Admin Trade Name Freq PRN Reason Stop Dose Admin Diphenhydramine HCl 50 mg 12/29/24 02:26 12/29/24 03:24 Diphenhydramine Hcl 50 Mg/Ml Vial IVPUSH 12/29/24 02:27 50 mg ONCE ONE Administration Haloperidol Lactate 5 mg 12/29/24 02:26 12/29/24 03:23 Haloperidol Lactate 5 Mg/Ml Vial IVPUSH 12/29/24 02:27 5 mg STAT STA Administration Hydromorphone HCl 1 mg 12/29/24 02:26 12/29/24 03:24 Hydromorphone Hcl 1 Mg/Ml Syringe IVPUSH 12/29/24 02:27 1 mg ONCE ONE Administration Protocol Discharge Plan Discharge Clinical Impression: Gastroparesis, Gastroenteritis Patient Disposition: Home, Self-Care Instructions: Gastroenteritis (ED) Additional Instructions: Continue to force your fluids over the next several days. Drink plenty of water, electrolyte solutions. Continue to take your antiemetics at home. Try to follow up in [place] as discussed with your retail performance specialist. Alternatively, you may try to follow-up at [facility] if you can get in there sooner. Return to the emergency department immediately with any new or worsening symptoms including: Fevers greater than 100?, inability to tolerate food or drink, passing out, any new symptom that concerns you. Call 911 with any medical emergency. Prescriptions: No Action metoclopramide HCl 5 mg tablet 5 mg PO Q8H PRN (Reason: nausea and vomiting) Qty: 20 0RF Creon 12,000-38,000 -60,000 unit capsule,delayed release(DR/EC) 1 cap PO QID Qty: 120 0RF Rx Instructions: administer with meals and/or snacks -- MAX OF 4 CAPS PER DAY. sucralfate 1 gram tablet 1 g PO BID Qty: 60 3RF valacyclovir 500 mg tablet 500 mg PO DAILY Trintellix 20 mg tablet 20 mg PO DAILY lamotrigine 200 mg tablet 200 mg PO DAILY Rx Instructions: 200mg in morning, 25mg at night lamotrigine 25 mg tablet 50 mg PO BEDTIME Rx Instructions: 200mg in morning, 25mg at night docusate sodium [Colace] 100 mg capsule 100 mg PO BID Qty: 60 3RF clonazepam 1 mg tablet,disintegrating 1 mg PO TID pantoprazole 40 mg tablet,delayed release (DR/EC) 40 mg PO DAILY@0630 prucalopride [Motegrity] 2 mg tablet 2 mg PO DAILY magnesium oxide 400 mg magnesium capsule 400 mg PO DAILY oxycodone 10 mg tablet 10 mg PO Q6H PRN (Reason: pain) Qty: 20 0RF Rx Instructions: Partial Fill upon patient request. bisacodyl 5 mg tablet,delayed release (DR/EC) 10 mg PO BEDTIME mirabegron [Myrbetriq] 50 mg tablet extended release 24 hr 50 mg PO DAILY hydroxyzine HCl 25 mg tablet 25 mg PO BEDTIME cholecalciferol (vitamin D3) 125 mcg (5,000 unit) capsule 125 mcg PO DAILY Qty: 90 3RF eszopiclone [Lunesta] 3 mg tablet 3 mg PO BEDTIME ondansetron 4 mg tablet,disintegrating 4 mg PO Q8H PRN (Reason: nausea and vomiting) Qty: 30 1RF esomeprazole magnesium 40 mg capsule,delayed release(DR/EC) 40 mg PO DAILY Qty: 90 5RF Rx Instructions: before meals Print Language: Icelandic
--- NOTE | 2024-12-29 06:05 | PC.NURSE ---
per MD, start po trial. RN gave pt crackers and gingerale. RN checked on pt about 20 min later, pt stated she wasn't able to tolerate the crackers- she showed RN the emesis bag which indeed had vomit. MD made aware. No further orders at this time.
[2024-12-29 08:20] LABS: E. coli EAEC Not Detected (Not Detect.); E. coli EPEC Not Detected (Not Detect.); E. coli ETEC Not Detected (Not Detect.); E. coli STEC Not Detected (Not Detect.); Shigella sp./EIEC Not Detected (Not Detect.)
--- NOTE | 2024-12-29 08:34 | PC.NURSE ---
pt is alert and oriented, skin appropriate for ethnicity, respiration even and unlabored, ls clear, pt denies pain at this time but is still having nausea and vomited after trying some gabriela bianca, abd distended by soft, pt does have a colostomy bag and having very watery stool.
--- NOTE | 2024-12-29 08:51 | PM.IMHP ---
History of Present Illness Date of Service: 12/29/24 Chief Complaint: nausea and vomiting 44-year-old female with extensive past medical history including gastroparesis, IBS status post colostomy placement, interstitial cystitis presenting with epigastric abdominal pain radiating throughout the upper abdomen. Describes a bloating sensation that is more severe than normal. Also has been having issues with increased output from the colostomy. Has emptied her bag 6 times today which is more than normal. Of note, she was recently diagnosed with norovirus about 8 days ago and was admitted to [facility] .from 12/21 to 12/27. she has had nausea and vomiting episodes. She denied fever, chills, chest pain, sob chest and abd xray showing nonobstructive bowel pattern. She received pain medications, antiemetics and IV fluids in the ED. She will be placed on observation for intractable nausea and vomiting. Review of Systems Review of Systems: Denies any recent fever chills or decrease in appetite respiratory denies any shortness of breath or cough cardiovascular denied chest pain gastrointestinal See HPI genitourinary denies any dysuria frequency or hematuria musculoskeletal denies any joint pain or swelling neuropsych denies any weakness or seizures all other systems reviewed are negative [facility] Medical History (Updated 12/29/24 @ 10:44 by Precious Farias NP) History of lumbar puncture (06/13/23) Seizures Postprocedural seroma of skin and subcutaneous tissue following other procedure Colostomy in place Hx of flexible sigmoidoscopy (07/26/24) Proctosigmoiditis Stricture of sigmoid colon Colon wall thickening Obesity, Class II, BMI 35-39.9 IBS (irritable bowel syndrome) History of colitis Gastric ulcer Interstitial cystitis Occipital neuralgia of right side History of suicidal ideation Anxiety Agoraphobia MDD (major depressive disorder) PTSD (post-traumatic stress disorder) Family History Father Prostate cancer Maternal Uncle Colon cancer Maternal Grandmother Breast cancer Surgical History (Updated 12/29/24 @ 10:44 by Precious Farias NP) Hx of History of colon surgery (08/12/24) History of tonsillectomy and adenoidectomy Hx of appendectomy H/O endoscopy (12/09/24) Hx of colonoscopy Hx of section H/O: hysterectomy Hx of cholecystectomy (~12/2022) Social History Household Members: Spouse and Family Housing: House Do you 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 have 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) Alcohol intake: never 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 Patient Tobacco Use Status: Former Tobacco user Smoked in Last 30 Days: No e-Cigarette/Vaping Use: Never Used Use of substances other than those prescribed or required for medical reasons: No Substance Use Type: Marijuana Advance Directives: No Advance Directives Information Provided: No service: No Meds Allergies Allergy/AdvReac Type Severity Reaction Status Date / Time propofol Allergy Intermediate Itching Verified 12/29/24 00:33 morphine Allergy Mild Itching Verified 12/29/24 00:33 Home Medications ?Medication ?Instructions ?Recorded ?Confirmed ?Last Taken ?Type lamotrigine 200 mg tablet 200 mg PO DAILY 01/02/23 12/29/24 12/29/24 History valacyclovir 500 mg tablet 500 mg PO DAILY 01/02/23 12/29/24 12/29/24 History vortioxetine 20 mg tablet 20 mg PO DAILY 01/02/23 12/29/24 12/29/24 History (Trintellix) hydroxyzine HCl 25 mg tablet 25 mg PO BEDTIME 01/08/24 12/29/24 12/28/24 History lamotrigine 25 mg tablet 50 mg PO BEDTIME 01/08/24 12/29/24 12/28/24 History bisacodyl 5 mg tablet,delayed 10 mg PO BEDTIME 07/25/24 12/29/24 12/28/24 History release mirabegron 50 mg tablet,extended 50 mg PO DAILY 07/25/24 12/29/24 12/29/24 History release 24 hr (Myrbetriq) eszopiclone 3 mg tablet (Lunesta) 3 mg PO BEDTIME 08/06/24 12/29/24 12/28/24 History clonazepam 1 mg disintegrating 1 mg PO TID 12/08/24 12/29/24 12/29/24 History tablet pantoprazole 40 mg tablet,delayed 40 mg PO DAILY@0630 12/08/24 12/29/24 12/29/24 History release magnesium oxide 400 mg PO DAILY 12/21/24 12/29/24 12/29/24 History prucalopride 2 mg tablet 2 mg PO DAILY 12/21/24 12/29/24 12/29/24 History (Motegrity) promethazine 12.5 mg rectal mg ND PRN Motion Sickness/Allergies 12/29/24 Unknown History suppository Physical Exam Vital Signs and Narrative: Vital Signs: Last Vital Signs Temp 97.7 F 12/29/24 08:23 Pulse 80 12/29/24 08:23 Resp 18 12/29/24 08:23 BP 115/58 L 12/29/24 08:23 Pulse Ox 97 12/29/24 08:23 O2 Del Method Room Air 12/29/24 08:23 BMI result Body Mass Index 40.0 Appearing in no acute distress head is normocephalic atraumatic eyes pupils are PERRLA sclera is anicteric mouth throat mucous membranes are intact and moist neck is supple no lymphadenopathy, no JVD noted lung sounds are clear to auscultation heart regular rate rhythm, clear S1, S2 positive bowel sounds, abdomen is soft, nontender neuro patient is alert x3, no focal deficits Results Labs 12/29/24 02:00 12/29/24 02:00 Labs: Laboratory Results - last 24 hr 12/29/24 12/29/24 02:00 03:35 MCV 80.0 MCH 26.8 L MCHC 33.5 RDW 14.7 Plt Count 425 H MPV 9.7 Immature Gran % (Auto) 0.3 Neut % (Auto) 48.3 Lymph % (Auto) 42.0 H [place] % (Auto) 7.0 Eos % (Auto) 1.9 Baso % (Auto) 0.5 Lymph # (Auto) 2.6 [place] # (Auto) 0.4 Eos # (Auto) 0.1 Baso # (Auto) 0.0 Abs Immat Gran (auto) 0.02 Absolute Neuts (auto) 3.0 Absolute Nucleated RBC 0.000 Nucleated RBC % (auto) 0.0 Anion Gap 10 L Estim Creat Clear Calc 123.7 Estimated GFR > 60 Random Glucose 114 Calcium 9.0 Magnesium 1.9 Total Bilirubin 0.1 AST 40 H ALT 46 H Alkaline Phosphatase 77 Total Protein 7.0 Albumin 3.9 Lipase 18 Stl C. cayetanensis PCR Not Detected Stool Rotavirus A PCR Not Detected Stl Adenov F 40/41 PCR Not Detected Stool Astrovirus (PCR) Not Detected Stool Campylobacter PCR Not Detected Stool Cryptosporidium PCR Not Detected Stl Sh Tox Pr E STEC PCR Not Detected Stool E coli O157 PCR Not applicable Stl Enterotoxigenic E PCR Not Detected Stool EPEC (PCR) Not Detected Stool EAEC (PCR) Not Detected Stl E. histolytica PCR Not Detected Stool Giardia Lamblia PCR Not Detected Stl P. shigelloides PCR Not Detected Stool Salmonella PCR Not Detected Stool Sapovirus (PCR) Not Detected Stl Shigella/EIEC PCR Not Detected St Y.enterocolitica PCR Not Detected Stool Vibrio (PCR) Not Detected Stl Vibrio cholerae PCR Not Detected Stl Norovirus GI/GII PCR Not Detected C. difficile Tox B Gene NEGATIVE Assessment and Plan (1) Nausea & vomiting: Qualifiers: Vomiting type: unspecified Qualified Code(s): R11.2 - Nausea with vomiting, unspecified Status: Acute Plan 44 year old women admitted with nausea and vomiting. History of abdominal surgery including colostomy placement. And long history of abdominal issues including gastroenteritis, gastroparesis, colitis Intractable abdominal pain, norovirus positive. slowly improving CT scan negative for any acute findings Abdominal ultrasound>neg GI consulted>continue antiemetics, pain medication, advance diet Colostomy patent no current indication for surgical intervention or consultation Dilaudid PRN clear diet as tolerated Gastroparesis Reglan PRN clear diet Colostomy placed July 2024 patient manages on her own Seizure history Continue Lamictal GERD/esophagitis IV Pepcid Anxiety/MDD/PTSD Continue lamotrigine Clonazepam when able to take po Morbid obesity. BMI 40.0 Discussed importance of weight management as this may be contributing to worsening of other comorbidities DVT prophylaxis: Lovenox Full Code status Quality Stroke Does the patient have a stroke diagnosis?: No VTE Prior VTE?: No VTE Risk Level:: Medical - moderate - high VTE Device Contraindication: Treatment Not Indicated VTE Drug Contraindication: N/A - Med Ordered
[2024-12-29] MEDS: Dextrose 5 % and Lactated Ring 1,000 ML 100 ML IVCONT ×2 (10:26→21:56)
--- NOTE | 2024-12-29 11:09 | PC.NURSE ---
report given to lesley milton
--- NOTE | 2024-12-29 11:09 | PC.NURSE ---
Report received from RN Deepti Pink by phone. Plan to move patient from ED 10 to Overflow 2. Care to be assumed by this RN upon arrival to unit.
--- NOTE | 2024-12-29 11:36 | PHA.MEDREC ---
Addendum entered by Ileana Mejia [facility] 12/29/24 12:07: REVIEWED BY PHARMACIST Original Note: Pharmacy Consult ? Medication Reconciliation Pharmacy has completed the medication reconciliation. Spoke with pt and she confirmed her medications. Pt confirmed she was just discharged with us in the last few days (12/27) and states there are no changes to those medications. Pt confirmed she takes Lamotrigine 200mg in the morning and 50mg (2 x 25mg) at bedtime, her pharmacy did not give her the Oxycodone when she went to pick them up (pt did not give clear indication why); spoke with pt pharmacy and they require a prescriber request in order to fill it for the pt, she takes Sucralfate 1gm tabs 1 hour before any of her other medications and mixes it with 8 ounces of water and pt is not familiar with starting Promethazine in the last few weeks; pt spouse at bedside not familiar with it either and states will look at home to see if they have that medication; pt pharmacy confirmed pt picked that up 12/18.
--- NOTE | 2024-12-29 15:54 | PM.GICN ---
History of Present Illness Data of Consult Service Date: 12/29/24 Requesting physician: Precious Farias Primary Care Provider: Janet Harding MD HPI Reason for consult: Intractable nausea and vomiting 44 YF with gastroparesis, IBS status post colostomy placement, interstitial cystitis seen at [facility] ED on 12/28/24 with epigastric abdominal pain radiating throughout the upper abdomen. Pt reported worsening sensation of bloating and has noted increased output from the colostomy - emptied her bag 8 times today Pt was hospitalized at [facility] from 12/21 to 12/27/24 with nausea and vomiting and diagnosed with norovirus infection. Pt reports she was taking ensure and blenderized homemade baby food. She noted abdominal bloating and distension which improved after she vomited - vomitus consisted of saliva and phlegm She denied fever, chills, chest pain, sob chest . In the ED, pt was treated with pain medications, antiemetics and IV fluids and admitted for further management. Some of patient's symptoms started 3 years ago after she had her gallbladder removed. Patient states colostomy was placed electively for chronic diarrhea and constipation issues related to IBS. There was thoughts that patient has sigmoid stricture but this was ruled out during surgery for colostomy. Patient is still follows with Dr. Allen. Patient has profound weakness in lower extremities with limited sensation but this is not new. Patient states she normally does not have sense or urge to void and has been experiencing this for the last 3 years. Patient has been working with PT and is now using a walker but prior was wheelchair-bound. Patient states she has follow with neurology for her seizures and also brain lesions and has been told that she does not have MS. In addition patient underwent a lumbar puncture in the past and has a chronic epidural cyst secondary to lumbar puncture with no evidence of infection. Patient has been trying to get to a calculus tutor specialist or gastro neuro specialist at [facility] and/or [facility] but neither facility takes her current insurance. Patient can not change her insurance until January of 2025. She has been considering a 2nd opinion for her neurological needs. Patient has not been able to find a neurologist outside the system that will accept her insurance. 12/21/[address] SCAN SHOWED: Cholecystectomy. Abdominal solid organs unremarkable. No urolithiasis. No bowel obstruction, pneumoperitoneum, or pneumatosis. Mesenteric vessels patent. Left lower quadrant ostomy. Hysterectomy. Ovaries unremarkable. The appendix is not identified. No acute fracture. IMPRESSION: No acute findings. PAST GI HISTORY BY REVIEW OF MEDICAL RECORDS: 12/09/[address] BRYANT SHOWED: EGD Impressions:? Normal esophagus (biopsy) Gastritis (biopsy) Duodenitis (biopsy)?? Recommendations:?? Empiric dilation of pyloric channel performed for reported gastroparesis. Continue PPI therapy. Can be switched to PO. Switch erythromycin to PO and taper off over the next 3 days. Add carafate 10 ml TID x 14 days. If patient continues to have persistent nausea and vomiting over the next 1-2 days, consider central source. Consider head imaging (CT head from August was without contrast). BIOPSIES SHOWED: A. Duodenum, biopsy: Chronic inactive duodenitis; Janene gland hyperplasia. B. Stomach, random, biopsy: Reactive gastropathy with background mild chronic inactive inflammation; no Helicobacter organisms seen. C. Esophagus, lower, biopsy: Squamous epithelium within normal limits; no inflammation seen 11/12/24 GASTRIC EMPTYING SHOWED: 1 hour 90% (normal 37%-90%) 2 hours 70% (normal 30%-60%) 3 hours 55% 4 hours 33% (normal 0%-10%) IMPRESSION: Abnormal 4-hour solid food gastric emptying study. Review of Systems Review of Systems: Yes all other systems are reviewed and are negative [facility] Past Medical History Medical History (Updated 12/29/24 @ 10:44 by Precious Farias NP) History of lumbar puncture (06/13/23) Seizures Postprocedural seroma of skin and subcutaneous tissue following other procedure Colostomy in place Hx of flexible sigmoidoscopy (07/26/24) Proctosigmoiditis Stricture of sigmoid colon Colon wall thickening Obesity, Class II, BMI 35-39.9 IBS (irritable bowel syndrome) History of colitis Gastric ulcer Interstitial cystitis Occipital neuralgia of right side History of suicidal ideation Anxiety Agoraphobia MDD (major depressive disorder) PTSD (post-traumatic stress disorder) Family History Family History Father Prostate cancer Maternal Uncle Colon cancer Maternal Grandmother Breast cancer Surgical History Surgical History (Updated 12/29/24 @ 10:44 by Precious Farias NP) Hx of History of colon surgery (08/12/24) History of tonsillectomy and adenoidectomy Hx of appendectomy H/O endoscopy (12/09/24) Hx of colonoscopy Hx of section H/O: hysterectomy Hx of cholecystectomy (~12/2022) Social History Social History Household Members: Spouse and Family Housing: House 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) Alcohol intake: never 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 Patient Tobacco Use Status: Former Tobacco user Smoked in Last 30 Days: No e-Cigarette/Vaping Use: Never Used Use of substances other than those prescribed or required for medical reasons: No Substance Use Type: Marijuana Advance Directives: No Advance Directives Information Provided: No service: No Meds Allergies Allergy/AdvReac Type Severity Reaction Status Date / Time propofol Allergy Intermediate Itching Verified 12/29/24 00:33 morphine Allergy Mild Itching Verified 12/29/24 00:33 Active Medications: Current Medications Acetaminophen (Acetaminophen 325 Mg Tablet) 650 mg PO Q6H PRN PRN Reason: Pain, Mild 1-3,fever,headache Calcium Carbonate (Calcium Carbonate 750 Mg Tab.Chew) 750 mg PO Q4H PRN PRN Reason: Heartburn Enoxaparin Sodium (Enoxaparin Sodium 40 Mg/0.4 Ml Syringe) 40 mg SUBCUT Q24H [facility] Last Admin: 12/29/24 10:26 Dose: 40 mg Famotidine (Famotidine/Pf 20 Mg/2 Ml Vial) 20 mg IVPUSH BID [facility] Last Admin: 12/29/24 10:26 Dose: 20 mg Hydromorphone HCl (Hydromorphone Hcl 1 Mg/Ml Syringe) 1 mg IVPUSH Q3H PRN; Protocol PRN Reason: Pain, Severe (Pain Scale 7-10) Last Admin: 12/29/24 10:39 Dose: 1 mg Dextrose/Lactated Ringer's (D5lr) 1,000 mls @ 100 mls/hr IVCONT .Q10H [facility] Last Admin: 12/29/24 10:26 Dose: 100 mls/hr Lamotrigine (Lamotrigine 100 Mg Tablet) 200 mg PO DAILY [facility] Lamotrigine (Lamotrigine 25 Mg Tablet) 50 mg PO BEDTIME [facility] Magnesium Hydroxide (Milk Of Magnesia 30 Ml Oral.Susp) 30 ml PO DAILY PRN PRN Reason: Constipation Melatonin (Melatonin 3 Mg Tablet) 6 mg PO BEDTIME PRN PRN Reason: Insomnia Metoclopramide HCl (Metoclopramide Hcl 10 Mg/2 Ml Vial) 5 mg IVPUSH Q4H PRN PRN Reason: Nausea Ondansetron HCl (Ondansetron Hcl 4 Mg/2 Ml Vial) 4 mg IVPUSH Q8H PRN PRN Reason: Nausea and Vomiting Last Admin: 12/29/24 15:00 Dose: 4 mg Promethazine HCl (Promethazine Hcl 25 Mg/Ml Vial) 12.5 mg IM Q8H PRN PRN Reason: Nausea and Vomiting Last Admin: 12/29/24 10:39 Dose: 12.5 mg Sodium Chloride (0.9 % Sodium Chloride Flush 3 Ml Syringe) 3 ml IVFLUSH [facility] Medications ?Medication ?Instructions ?Recorded ?Confirmed ?Last Taken ?Type lamotrigine 200 mg tablet 200 mg PO DAILY 01/02/23 12/29/24 12/29/24 History valacyclovir 500 mg tablet 500 mg PO DAILY 01/02/23 12/29/24 12/29/24 History vortioxetine 20 mg tablet 20 mg PO DAILY 01/02/23 12/29/24 12/29/24 History (Trintellix) hydroxyzine HCl 25 mg tablet 25 mg PO BEDTIME 01/08/24 12/29/24 12/28/24 History lamotrigine 25 mg tablet 50 mg PO BEDTIME 01/08/24 12/29/24 12/28/24 History bisacodyl 5 mg tablet,delayed 10 mg PO BEDTIME 07/25/24 12/29/24 12/28/24 History release mirabegron 50 mg tablet,extended 50 mg PO DAILY 07/25/24 12/29/24 12/29/24 History release 24 hr (Myrbetriq) eszopiclone 3 mg tablet (Lunesta) 3 mg PO BEDTIME 08/06/24 12/29/24 12/28/24 History clonazepam 1 mg disintegrating 1 mg PO TID 12/08/24 12/29/24 12/29/24 History tablet pantoprazole 40 mg tablet,delayed 40 mg PO DAILY@0630 09/11/2412/29/24 12/29/24 History release magnesium oxide 400 mg PO DAILY 12/21/24 12/29/24 12/29/24 History prucalopride 2 mg tablet 2 mg PO DAILY 12/21/24 12/29/24 12/29/24 History (Motegrity) promethazine 12.5 mg rectal mg DE PRN Motion Sickness/Allergies 12/29/24 Unknown History suppository Physical Exam Vital Signs: Vital Signs: Last Vital Signs Temp 98.3 F 12/29/24 14:54 Pulse 84 12/29/24 14:54 Resp 18 12/29/24 14:54 BP 98/55 L 12/29/24 14:54 Pulse Ox 99 12/29/24 14:54 O2 Del Method Room Air 12/29/24 14:54 BMI result Body Mass Index 40.0 Const: General: no acute distress Nutritional Appearance: obese Orientation/consciousness: patient oriented x3 HEENT: Head: Yes normal to inspection Ears: hearing grossly normal bilaterally Eyes: Sclerae: sclerae normal Pupils: Equal, round and reactive pupils present Neck: Neck: Yes normal visual inspection Chest: Chest palpation & inspection: normal inspection of the chest Resp: Effort & Inspection: normal respiratory effort Auscultation: clear to auscultation bilaterally Cardio: Palpation: normal PMI Rate: regular rate Rhythm: regular rhythm Heart sounds: S1 normal heart sound present, S2 normal heart sound present and no murmurs GI: Inspection: Yes obesity and Yes other (Colostomy tube in LUQ) Palpation (GI): Soft to palpation, Tenderness to palpation present (GI) (moderate upper abdominal tenderness) and No hepatosplenomegaly present Auscultation: normal bowel sounds Rectal Exam - Female: deferred Skin: General skin exam: no rashes or lesions noted Neuro: General: patient oriented x3, gait normal and moves all extremities Cranial nerves: Yes Equal, round and reactive pupils present Psych: Appearance: grossly normal Mental Status: mental status grossly normal Results Labs 12/29/24 02:00 12/29/24 02:00 Labs: Short CBC 12/29/24 Range/Units 02:00 WBC 6.3 (4.8-10.8) X10*3/uL Hgb 13.1 (12.0-16.0) g/dl Hct 39.1 (37.0-47.0) % Plt Count 425 H (160-400) X10*3/uL BMP 12/29/24 02:00 Sodium 141 Potassium 3.4 Chloride 108 Carbon Dioxide 26 BUN 8 L Creatinine 0.67 Calcium 9.0 Liver Function 12/29/24 Range/Units 02:00 Total Bilirubin 0.1 (0.0-1.0) mg/dL AST 40 H (5-31) U/L ALT 46 H (0-31) U/L Alkaline Phosphatase 77 (39-117) U/L Albumin 3.9 (3.5-5.0) g/dL Assessment and Plan (1) Gastroparesis: Status: Acute (2) Nausea & vomiting: Qualifiers: Vomiting type: unspecified Qualified Code(s): R11.2 - Nausea with vomiting, unspecified Status: Acute (3) S/P colostomy: Status: Acute Plan 44 YF with history of colitis with recent colostomy, Alopecia, IBS, interstitial cystitis, occipital neuralgia of the right side, epidural abscess L2-L5, chronic pain, brain lesions (told it is not MS), seizures (last sz 4 months ago), hystrectomy for hyperplasia and risk for cancer, MDD, PTSD admitted to [facility] on 12/21/24 with intractable abdominal pain, intractable nausea and vomiting. Stool studies were positive for norovirus infection - worsening of symptoms are likely due to gastroparesis flare with superimporsed Norovirus. Pt has diffuse upper and lower GI dysmotility and suspected to have small fiber neuropathy and autonomic neuropathy (since also has bowel and bladder issues) Pt was referred to [facility] program) and was not seen since her insurance is not accepted. Pt is planning to change her insurance in January so she can undergo further evaluation RECOMMENDATIONS 1. Agree with IV pain medications, metoclopramide, PPI and anti-emetics 2. Clear liquids as tolerated 3. If no improvement in symtoms, start IV erythromycin 250 t.i.d. for gastroparesis Procedures Date of Service Date of Service: 12/29/24
[2024-12-30 03:33] VITALS: BP 121/71; PULSE 77; RESP 18; TEMP 36.3; O2SAT 95
[2024-12-30] MEDS: Dextrose 5 % and Lactated Ring 1,000 ML 100 ML IVCONT ×2 (06:24→14:00)
--- NOTE | 2024-12-30 07:57 | PC.NURSE ---
Pt sleeping. NAD
--- NOTE | 2024-12-30 08:03 | PC.NURSE ---
Up to bathroom with slow but steady gait. States she's interested in showerig only when her comes. Is aware of clear liquid diet.
[2024-12-30 08:51] VITALS: BMI 41.7
--- NOTE | 2024-12-30 08:51 | HO.NURTONUR ---
Addendum entered by Yudelka Anguiano RN 12/30/24 08:53: stool sample neg for c diff and norovirus Original Note: Increased output in colostomy since sunday. recent norovirus. has gastropersis and awaits specialist f/u. on clears only. ambulatory. bilingual. output has slowed per patient. labs look good. moist mm.
[2024-12-30 09:18] LABS: Hematocrit 37.0 % (37.0-47.0); Hemoglobin 12.4 g/dl (12.0-16.0); Mean Corpuscular HGB Conc 33.5 g/dl (31.0-35.0); Mean Corpuscular Hemoglobin 27.1 pg (27.0-33.0); Mean Corpuscular Volume 80.8 fL (80.0-98.0); NRBC Abs Auto 0.000 X10*3/uL (0.0-0.012); NRBC Pct Auto 0.0 /100WBC (0.0-0.2); Platelet Count 343 X10*3/uL (160-400); Red Blood Count 4.58 X10*6/uL (4.20-5.50); White Blood Count 5.5 X10*3/uL (4.8-10.8)
[2024-12-30 09:31] LABS: Anion Gap 7 (12-20); Blood Urea Nitrogen 5 mg/dL (9-16); Calcium 8.4 mg/dL (8.4-10.2); Carbon Dioxide 27 mmol/L (22-29); Chloride 107 mmol/L (96-108); Creatinine Clr Calc Pharmacy 135.8; Estimated Glomerular Filt Rate > 60; Magnesium 1.7 mg/dL (1.6-2.6); Potassium 3.4 mmol/L (3.3-5.1); Sodium 138 mmol/L (135-145)
[2024-12-30 10:00] VITALS: BP 124/70; PULSE 72; RESP 18; TEMP 36.9; O2SAT 96
[2024-12-30 13:54] VITALS: RESP 18
--- NOTE | 2024-12-30 15:10 | P.PNIM_ITS ---
Subjective Subjective Date of Service: 12/30/24 Interval History: still c/o nausea/vomiting, abd pain Review of Systems Review of Systems: Yes all other systems are reviewed and are negative Physical Exam 2 Vital Signs: Vital Signs: Last Vital Signs Temp 98.4 F 12/30/24 10:00 Pulse 72 12/30/24 10:00 Resp 18 12/30/24 13:54 BP 124/70 12/30/24 10:00 Pulse Ox 96 12/30/24 10:00 O2 Del Method Room Air 12/30/24 10:00 BMI result Body Mass Index 41.7 Gen: in no acute distress HEENT: sclera anicteric, moist mucus membranes Neck: supple Lungs: clear to auscultation bilaterally Heart: regular rate and rhythm, no murmurs Abd: soft, obese, colostomy, generalized tenderness Ext: no edema Skin: warm/well-perfused Neuro: alert and oriented x3, no focal findings Psych: appropriate affect Objective Data Active Medications Acetaminophen (Acetaminophen 325 Mg Tablet) 650 mg PO Q6H PRN PRN Reason: Pain, Mild 1-3,fever,headache Calcium Carbonate (Calcium Carbonate 750 Mg Tab.Chew) 750 mg PO Q4H PRN PRN Reason: Heartburn Enoxaparin Sodium (Enoxaparin Sodium 40 Mg/0.4 Ml Syringe) 40 mg SUBCUT Q24H [facility] Last Admin: 12/30/24 08:48 Dose: 40 mg Documented By: MANGO Erythromycin Ethylsuccinate (Erythromycin Ethylsuccinate 4,000 Mg/100 Ml Bottle) 400 mg PO Q8H [facility] Stop: 01/04/25 23:59 Famotidine (Famotidine/Pf 20 Mg/2 Ml Vial) 20 mg IVPUSH BID [facility] Last Admin: 12/30/24 08:48 Dose: 20 mg Documented By: MANGO Hydromorphone HCl (Hydromorphone Hcl 1 Mg/Ml Syringe) 1 mg IVPUSH Q3H PRN; Protocol PRN Reason: Pain, Severe (Pain Scale 7-10) Last Admin: 12/30/24 13:54 Dose: 1 mg Documented By: DEISY Dextrose/Lactated Ringer's (D5lr) 1,000 mls @ 100 mls/hr IVCONT .Q10H [facility] Last Admin: 12/30/24 14:00 Dose: 100 mls/hr Documented By: DEISY Erythromycin Lactobionate 250 (mg/ Sodium Chloride) 100 mls @ 100 mls/hr IV Q8H [facility] Stop: 12/30/24 20:59 Last Infusion: 12/30/24 13:42 Dose: Infused Documented By: DEISY Influenza Virus Vaccine (Flu Vacc [id number](6mo Up)/Pf 0.5 Ml Syringe) 0.5 ml IM .ONCE ONE Stop: 12/31/24 10:01 Lamotrigine (Lamotrigine 100 Mg Tablet) 200 mg PO DAILY [facility] Last Admin: 12/30/24 08:48 Dose: 200 mg Documented By: MANGO Lamotrigine (Lamotrigine 25 Mg Tablet) 50 mg PO BEDTIME [facility] Last Admin: 12/29/24 21:55 Dose: 50 mg Documented By: JOSHUA Magnesium Hydroxide (Milk Of Magnesia 30 Ml Oral.Susp) 30 ml PO DAILY PRN PRN Reason: Constipation Melatonin (Melatonin 3 Mg Tablet) 6 mg PO BEDTIME PRN PRN Reason: Insomnia Metoclopramide HCl (Metoclopramide Hcl 10 Mg/2 Ml Vial) 5 mg IVPUSH Q4H PRN PRN Reason: Nausea Last Admin: 12/30/24 13:54 Dose: 5 mg Documented By: DEISY Ondansetron HCl (Ondansetron Hcl 4 Mg/2 Ml Vial) 4 mg IVPUSH Q8H PRN PRN Reason: Nausea and Vomiting Last Admin: 12/30/24 03:07 Dose: 4 mg Documented By: ANTOIC Promethazine HCl (Promethazine Hcl 25 Mg/Ml Vial) 12.5 mg IM Q8H PRN PRN Reason: Nausea and Vomiting Last Admin: 12/29/24 21:55 Dose: 12.5 mg Documented By: JOSHUA Sodium Chloride (0.9 % Sodium Chloride Flush 3 Ml Syringe) [facility] Last Admin: 12/30/24 07:57 Dose: Not Given Documented By: MANGO Non-Admin Reason: IV Running Labs 12/30/24 09:12 12/30/24 09:12 Labs: Laboratory Results - last 24 hr 12/30/24 09:12 MCV 80.8 MCH 27.1 MCHC 33.5 RDW 15.2 Plt Count 343 MPV 9.6 Absolute Nucleated RBC 0.000 Nucleated RBC % (auto) 0.0 Anion Gap 7 L Estim Creat Clear Calc 135.8 Estimated GFR > 60 Random Glucose 93 Calcium 8.4 D Magnesium 1.7 Assessment and Plan (1) Gastroparesis: Status: Acute Plan d2, 44yo F with gastroparesis + IBS with intractable diarrhea s/p colostomy placement, interstitial cystitis presenting with persistent generalized abd pain, increased outpt from colostomy, nausea, vomiting recently admitted 12/21-12/27 for same, tested positive for norovirus 12/21 but now negative intractable abd pain/N/V - CT + US negative for acute findings; GI consultation, antiemetics [promethazine, ondansetron, metoclopramide], start erythromycin, prn hydromorphone, clear liquid diet seizure history - lamotrigine GERD/esophagitis - famotidine morbid obesity - diet/exercise counseling VTE ppx: enoxaparin dispo: eventual home In my clinical judgment, the patient requires continued inpatient hospitalization for the following reasons: N/V intractable abd pain Total time managing care of this patient today: 35 minutes. Quality Stroke Does the patient have a stroke diagnosis?: No VTE Prior VTE?: No VTE Risk Level:: Medical - moderate - high VTE Device Contraindication: Treatment Not Indicated VTE Drug Contraindication: N/A - Med Ordered
[2024-12-30 16:00] VITALS: BP 113/57; PULSE 75; RESP 19; TEMP 36.1; O2SAT 96
[2024-12-30 19:36] VITALS: BP 128/61; PULSE 75; RESP 18; TEMP 36.7; O2SAT 98
[2024-12-31 03:17] VITALS: BP 120/78; PULSE 70; RESP 18; TEMP 36.4; O2SAT 94
[2024-12-31] MEDS: ERYTHROMYCIN ETHYLSUCCINATE 400 MG PO ×3 (03:43→20:07)
[2024-12-31] MEDS: Dextrose 5 % and Lactated Ring 1,000 ML 100 ML IVCONT ×2 (06:14→15:07)
[2024-12-31 06:42] LABS: Anion Gap 11 (12-20); Blood Urea Nitrogen < 3 mg/dL (9-16); Calcium 8.6 mg/dL (8.4-10.2); Carbon Dioxide 26 mmol/L (22-29); Chloride 106 mmol/L (96-108); Creatinine Clr Calc Pharmacy 141.5; Estimated Glomerular Filt Rate > 60; Potassium 3.6 mmol/L (3.3-5.1); Sodium 139 mmol/L (135-145)
[2024-12-31 07:41] VITALS: BP 132/84; PULSE 75; RESP 16; TEMP 36.7; O2SAT 96
[2024-12-31] MEDS: Flu Vacc TS2025-26(6mo up)/PF 0.5 ML SYRINGE IM (08:37)
--- NOTE | 2024-12-31 09:21 | MHC.CM.PN ---
PT WALTER WITH ,HAS 18 HRS [employer] HAS A RIDE HOME DC PLAN HOME N/S
--- NOTE | 2024-12-31 09:42 | HO.PM.IMPN ---
Subjective Subjective Date of Service: 12/31/24 Interval History: c/o ongoing abd pain, nausea, vomiting Review of Systems Review of Systems: Yes all other systems are reviewed and are negative Physical Exam Vital Signs: Vital Signs: Last Vital Signs Temp 98.1 F 12/31/24 07:41 Pulse 75 12/31/24 07:41 Resp 16 12/31/24 07:41 BP 132/84 12/31/24 07:41 Pulse Ox 96 12/31/24 07:41 O2 Del Method Room Air 12/31/24 07:41 BMI result Body Mass Index 41.7 Gen: in no acute distress HEENT: sclera anicteric, moist mucus membranes Neck: supple Lungs: clear to auscultation bilaterally Heart: regular rate and rhythm, no murmurs Abd: soft, obese, colostomy, generalized tenderness Ext: no edema Skin: warm/well-perfused Neuro: alert and oriented x3, no focal findings Psych: appropriate affect Objective Data Active Medications Acetaminophen (Acetaminophen 325 Mg Tablet) 650 mg PO Q6H PRN PRN Reason: Pain, Mild 1-3,fever,headache Calcium Carbonate (Calcium Carbonate 750 Mg Tab.Chew) 750 mg PO Q4H PRN PRN Reason: Heartburn Enoxaparin Sodium (Enoxaparin Sodium 40 Mg/0.4 Ml Syringe) 40 mg SUBCUT Q24H [facility] Last Admin: 12/31/24 08:36 Dose: 40 mg Documented By: MANOJ Erythromycin Ethylsuccinate (Erythromycin Ethylsuccinate 4,000 Mg/100 Ml Bottle) 400 mg PO Q8H [facility] Stop: 01/04/25 23:59 Last Admin: 12/31/24 03:43 Dose: 400 mg Documented By: DANIELLE Famotidine (Famotidine/Pf 20 Mg/2 Ml Vial) 20 mg IVPUSH BID [facility] Last Admin: 12/31/24 08:36 Dose: 20 mg Documented By: MANOJ Hydromorphone HCl (Hydromorphone Hcl 1 Mg/Ml Syringe) 1 mg IVPUSH Q3H PRN; Protocol PRN Reason: Pain, Severe (Pain Scale 7-10) Last Admin: 12/31/24 09:13 Dose: 1 mg Documented By: MANOJ Dextrose/Lactated Ringer's (D5lr) 1,000 mls @ 100 mls/hr IVCONT .Q10H [facility] Last Admin: 12/31/24 06:14 Dose: 100 mls/hr Documented By: DANIELLE Influenza Virus Vaccine (Flu Vacc [id number](6mo Up)/Pf 0.5 Ml Syringe) 0.5 ml IM .ONCE ONE Stop: 12/31/24 10:01 Last Admin: 12/31/24 08:37 Dose: 0.5 ml Documented By: MANOJ Lamotrigine (Lamotrigine 100 Mg Tablet) 200 mg PO DAILY [facility] Last Admin: 12/31/24 08:36 Dose: 200 mg Documented By: MANOJ Lamotrigine (Lamotrigine 25 Mg Tablet) 50 mg PO BEDTIME [facility] Last Admin: 12/30/24 21:58 Dose: 50 mg Documented By: DANIELLE Magnesium Hydroxide (Milk Of Magnesia 30 Ml Oral.Susp) 30 ml PO DAILY PRN PRN Reason: Constipation Melatonin (Melatonin 3 Mg Tablet) 6 mg PO BEDTIME PRN PRN Reason: Insomnia Metoclopramide HCl (Metoclopramide Hcl 10 Mg/2 Ml Vial) 5 mg IVPUSH Q4H PRN PRN Reason: Nausea Last Admin: 12/31/24 09:13 Dose: 5 mg Documented By: MANOJ Ondansetron HCl (Ondansetron Hcl 4 Mg/2 Ml Vial) 4 mg IVPUSH Q8H PRN PRN Reason: Nausea and Vomiting Last Admin: 12/31/24 06:03 Dose: 4 mg Documented By: DANIELLE Promethazine HCl (Promethazine Hcl 25 Mg/Ml Vial) 12.5 mg IM Q8H PRN PRN Reason: Nausea and Vomiting Last Admin: 12/29/24 21:55 Dose: 12.5 mg Documented By: ABLCABRERA Sodium Chloride (0.9 % Sodium Chloride Flush 3 Ml Syringe) 3 ml IVFLUSH [facility] Last Admin: 12/31/24 09:13 Dose: Not Given Documented By: MANOJ Non-Admin Reason: IV Running Labs 12/30/24 09:12 12/31/24 05:51 Labs: Laboratory Results - last 24 hr 12/31/24 05:51 Hold Purple Top SEE NOTE Anion Gap 11 L Estim Creat Clear Calc 141.5 Estimated GFR > 60 Random Glucose 108 Calcium 8.6 Assessment and Plan (1) Gastroparesis: Status: Acute Plan d3, 44yo F with gastroparesis + IBS with intractable diarrhea s/p colostomy placement, interstitial cystitis presenting with persistent generalized abd pain, increased output from colostomy, nausea, vomiting recently admitted 12/21-12/27 for same, tested positive for norovirus 12/21 but now negative intractable abd pain/N/V - CT + US negative for acute findings; GI consulted, continue antiemetics [prn promethazine, change prn to standing ondansetron, change prn to standingmetoclopramide], started erythromycin IV->PO 12/31, prn hydromorphone, clear liquid diet seizure history - lamotrigine GERD/esophagitis - famotidine morbid obesity - diet/exercise counseling VTE ppx: enoxaparin dispo: eventual home In my clinical judgment, the patient requires continued inpatient hospitalization for the following reasons: N/V, intractable abd pain Total time managing care of this patient today: 35 minutes. Quality Stroke Does the patient have a stroke diagnosis?: No VTE Prior VTE?: No VTE Risk Level:: Medical - moderate - high VTE Device Contraindication: Treatment Not Indicated VTE Drug Contraindication: N/A - Med Ordered
[2024-12-31 16:00] VITALS: BP 144/70; PULSE 76; RESP 19; TEMP 36.4; O2SAT 98
[2024-12-31 19:54] VITALS: BP 137/70; PULSE 75; RESP 18; TEMP 36.2; O2SAT 95
[2025-01-01] MEDS: Dextrose 5 % and Lactated Ring 1,000 ML 100 ML IVCONT ×2 (01:05→08:50)
[2025-01-01] MEDS: 0.9 % Sodium Chloride Flush 3 ML SYRINGE IVFLUSH ×2 (01:08→08:27)
[2025-01-01 03:30] VITALS: BP 97/53; PULSE 72; RESP 18; TEMP 36.2; O2SAT 95
[2025-01-01] MEDS: ERYTHROMYCIN ETHYLSUCCINATE 400 MG PO ×2 (03:56→11:46)
--- NOTE | 2025-01-01 07:15 | P.PNIM_ITS ---
Subjective Subjective Date of Service: 01/01/25 Physical Exam 2 Vital Signs: Vital Signs: Last Vital Signs Temp 97.1 F 01/01/25 03:30 Pulse 72 01/01/25 03:30 Resp 18 01/01/25 03:30 BP 97/53 L 01/01/25 03:30 Pulse Ox 95 01/01/25 03:30 O2 Del Method Room Air 01/01/25 03:30 BMI result Body Mass Index 41.7 Objective Data Active Medications Acetaminophen (Acetaminophen 325 Mg Tablet) 650 mg PO Q6H PRN PRN Reason: Pain, Mild 1-3,fever,headache Calcium Carbonate (Calcium Carbonate 750 Mg Tab.Chew) 750 mg PO Q4H PRN PRN Reason: Heartburn Enoxaparin Sodium (Enoxaparin Sodium 40 Mg/0.4 Ml Syringe) 40 mg SUBCUT Q24H [facility] Last Admin: 12/31/24 08:36 Dose: 40 mg Documented By: MANOJ Erythromycin Ethylsuccinate (Erythromycin Ethylsuccinate 4,000 Mg/100 Ml Bottle) 400 mg PO Q8H [facility] Stop: 01/04/25 23:59 Last Admin: 01/01/25 03:56 Dose: 400 mg Documented By: DANIELLE Famotidine (Famotidine/Pf 20 Mg/2 Ml Vial) 20 mg IVPUSH BID [facility] Last Admin: 12/31/24 20:07 Dose: 20 mg Documented By: DANIELLE Hydromorphone HCl (Hydromorphone Hcl 1 Mg/Ml Syringe) 1 mg IVPUSH Q3H PRN; Protocol PRN Reason: Pain, Severe (Pain Scale 7-10) Last Admin: 01/01/25 04:04 Dose: 1 mg Documented By: DANIELLE Dextrose/Lactated Ringer's (D5lr) 1,000 mls @ 100 mls/hr IVCONT .Q10H [facility] Last Admin: 01/01/25 01:05 Dose: 100 mls/hr Documented By: DANIELLE Lamotrigine (Lamotrigine 100 Mg Tablet) 200 mg PO DAILY [facility] Last Admin: 12/31/24 08:36 Dose: 200 mg Documented By: MANOJ Lamotrigine (Lamotrigine 25 Mg Tablet) 50 mg PO BEDTIME [facility] Last Admin: 12/31/24 20:07 Dose: 50 mg Documented By: DANIELLE Magnesium Hydroxide (Milk Of Magnesia 30 Ml Oral.Susp) 30 ml PO DAILY PRN PRN Reason: Constipation Melatonin (Melatonin 3 Mg Tablet) 6 mg PO BEDTIME PRN PRN Reason: Insomnia Metoclopramide HCl (Metoclopramide Hcl 10 Mg/2 Ml Vial) 5 mg IVPUSH Q8H [facility] Last Admin: 01/01/25 02:05 Dose: 5 mg Documented By: DANIELLE Ondansetron HCl (Ondansetron Hcl 4 Mg/2 Ml Vial) 4 mg IVPUSH Q8H [facility] Last Admin: 01/01/25 02:05 Dose: 4 mg Documented By: DANIELLE Promethazine HCl (Promethazine Hcl 25 Mg/Ml Vial) 12.5 mg IM Q8H PRN PRN Reason: Nausea and Vomiting Last Admin: 12/29/24 21:55 Dose: 12.5 mg Documented By: JOSHUA Sodium Chloride (0.9 % Sodium Chloride Flush 3 Ml Syringe) [facility] Last Admin: 01/01/25 01:08 Dose: 3 ml Documented By: DANIELLE Labs 12/30/24 09:12 12/31/24 05:51 Quality Stroke Does the patient have a stroke diagnosis?: No VTE Prior VTE?: No VTE Risk Level:: Medical - moderate - high VTE Device Contraindication: Treatment Not Indicated VTE Drug Contraindication: N/A - Med Ordered
[2025-01-01 07:51] VITALS: BP 109/60; PULSE 80; RESP 16; TEMP 36.9; O2SAT 95
--- NOTE | 2025-01-01 13:19 | PM.DS ---
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 She was recently admitted from 12/21/2024 to 12/27/2024 with acute onset nausea and vomiting and was diagnosed with norovirus. This admission, she presented with a similar concerns and GI was consulted-initiated erythromycin IV and p.o.. Challenged her with pureed diet which she seemed to have tolerated and she is being discharged on Zofran and erythromycin PO TID Patient has been extensively educated about following up with the GI and undergoing further evaluation at a higher center given limited availability at our facility. Patient takes ensure and pureed homemade baby food which she has tolerated at the time of discharge now after initiation of erythromycin. Pt reported worsening sensation of bloating and has noted increased output from the colostomy - emptied her bag 8 times today Pt [place] [facility] and was not seen since her insurance is not accepted. Pt is planning to change her insurance in January so she can undergo further evaluation Seizure history Continue lamotrigine Morbid obesity-diet and exercise She was managed with Lovenox while inpatient This note is constructed using voice recognition software. While every effort has been made to ensure accuracy, registered client associate errors may have been included. Time spent discussing smoking cessation with patient: more than 10 minutes Status at Discharge Functional status at discharge: independent ambulation Overall status at discharge: patient is progressing back to baseline Time Attestation Discharge Coordination Time (in mins): 35 Quality: Safe Use of Opioids Does Pt have an Active Cancer Diagnosis on the Problem List?: No Quality: Stroke Does the patient have a stroke diagnosis?: No Physical Exam Exam: Exam: General: AOx3, no acute distress Resp: CTA bilaterally CVS: S1, S2, RRR GI: Colostomy bag covered , draining minimal output Neuro: Motor grossly intact bilaterally Psych: Anxious affect Vital Signs: Vital Signs: Last Vital Signs Temp 98.4 F 01/01/25 07:51 Pulse 80 01/01/25 07:51 Resp 16 01/01/25 07:51 BP 109/60 01/01/25 07:51 Pulse Ox 95 01/01/25 07:51 O2 Del Method Room Air 01/01/25 07:51 BMI result Body Mass Index 41.7 DS: Data Data Completed and Pending Completed studies during hospitalization [Text1]: Procedures Bypass Sigmoid Colon to Cutaneous, Open Approach (08/12/24) Dilation of Stomach, Via Natural or Artificial Opening Endoscopic (12/07/24) Drainage of Abdomen Subcutaneous Tissue and Fascia, Percutaneous Approach (08/12/24) Drainage of Large Intestine, Via Natural or Artificial Opening Endoscopic (07/25/24) Excision of Duodenum, Via Natural or Artificial Opening Endoscopic, Diagnostic (12/07/24) Excision of Lower Esophagus, Via Natural or Artificial Opening Endoscopic, Diagnostic (12/07/24) Excision of Rectum, Via Natural or Artificial Opening Endoscopic, Diagnostic (07/25/24) Excision of Sigmoid Colon, Via Natural or Artificial Opening Endoscopic, Diagnostic (07/25/24) Excision of Stomach, Pylorus, Via Natural or Artificial Opening Endoscopic, Diagnostic (12/07/24) Introduction of Anesthetic Agent into Peripheral Nerves and Plexi, Percutaneous Approach (08/12/24) Discharge Plan Discharge Anticipated Discharge Date/Time: 01/01/25 13:05 Patient Disposition: Home, Self-Care Discharge Diagnosis: A/C severe subacutely controlled gastroparesis started on Erythromycin with some effect Referrals: Janet Harding MD [Primary Care Provider, Internal Medicine] - 1 Week Apoorva Villanueva MD [Physician, Gastroenterology] - 1 Week Discharge Medications: New erythromycin ethylsuccinate 200 mg/5 mL Suspension For Reconstitution 400 mg PO Q8H 14 Days Qty: 420 3RF metoclopramide HCl [Reglan] 10 mg tablet 10 mg PO Q6H 7 Days Qty: 28 0RF Continued metoclopramide HCl 5 mg tablet 5 mg PO Q8H PRN (Reason: nausea and vomiting) Qty: 20 0RF Creon 12,000-38,000 -60,000 unit capsule,delayed release(DR/EC) 1 cap PO QID Qty: 120 0RF Rx Instructions: administer with meals and/or snacks -- MAX OF 4 CAPS PER DAY. sucralfate 1 gram tablet 1 g PO BID Qty: 60 3RF Patient Comments: pt takes with 8 ounces of water 1 hour before her other medications. valacyclovir 500 mg tablet 500 mg PO DAILY Trintellix 20 mg tablet 20 mg PO DAILY lamotrigine 200 mg tablet 200 mg PO DAILY Rx Instructions: 200mg in morning, 25mg at night lamotrigine 25 mg tablet 50 mg PO BEDTIME Rx Instructions: 200mg in morning, 25mg at night docusate sodium [Colace] 100 mg capsule 100 mg PO BID Qty: 60 3RF clonazepam 1 mg tablet,disintegrating 1 mg PO TID pantoprazole 40 mg tablet,delayed release (DR/EC) 40 mg PO DAILY@0630 prucalopride [Motegrity] 2 mg tablet 2 mg PO DAILY magnesium oxide 400 mg magnesium capsule 400 mg PO DAILY promethazine 12.5 mg suppository [place] PRN (Reason: Motion Sickness/Allergies) bisacodyl 5 mg tablet,delayed release (DR/EC) 10 mg PO BEDTIME mirabegron [Myrbetriq] 50 mg tablet extended release 24 hr 50 mg PO DAILY hydroxyzine HCl 25 mg tablet 25 mg PO BEDTIME cholecalciferol (vitamin D3) 125 mcg (5,000 unit) capsule 125 mcg PO DAILY Qty: 90 3RF eszopiclone [Lunesta] 3 mg tablet 3 mg PO BEDTIME ondansetron 4 mg tablet,disintegrating 4 mg PO Q8H PRN (Reason: nausea and vomiting) Qty: 30 1RF esomeprazole magnesium 40 mg capsule,delayed release(DR/EC) 40 mg PO DAILY Qty: 90 5RF Rx Instructions: before meals Discharge Orders: Discharge Order (Routine); Ordered 01/01/25 Ordered By: Nieves Reyes Diet: pureed diet Activity on Discharge: As tolerated Stand Alone Forms: Patient Portal Discharge page Print Language: Polish Activity Restrictions/Additional Instructions: You have been started on erythromycin which is a motility agent which can help move the contents of your stomach which helps with gastroparesis discharge instructions gastroparesis discharge instructions Continue to force your fluids over the next several days. Drink plenty of water, electrolyte solutions. Continue to take your antiemetics at home. Try to follow up in [place] as discussed with your hydrotreater operator. Alternatively, you may try to follow-up at [facility] if you can get in there sooner. Return to the emergency department immediately with any new or worsening symptoms including: Fevers greater than 100?, inability to tolerate food or drink, passing out, any new symptom that concerns you. Call 911 with any medical emergency. Care Plan Goals: Follow-up with PCP Follow-up with GI Dr. Guerin outpatient within a week Erythromycin has been started further improved gastric motility Please take Zofran prior to any diet to help with the nausea and vomiting Patient encouraged to adhere to PCP appointment Patient also looking forward to changing her insurance so that she can see specialist care at [facility] (which her specialist is unable to offer now) Patient also advised to hydrate and seek medical care if symptoms not under control. Patient advised that we are offering her the best medical management and she needs subspecialist care at a higher level given multiple recurrent admissions with similar concerns with suboptimal response.-patient's was also at the bedside and agreeable. Health Concerns: See above Plan of Treatment: See above Assessment: See above Patient Instructions: Gastroparesis (DC)
--- NOTE | 2025-01-01 15:07 | MHC.CM.PN ---
PT CLEARED TO DC HOME TODAY WITH [facility] OF [facility] VIA PRIVATE TRANSPORT
== END 2025-01-01 14:42 | disposition home or self-care (01) ==
LOC: HO.ED 08:47 → HO.EDOVER 08:58 → HO.S3 12-30 08:33
PROVIDERS: Family Medicine; Admitting Provider Nurse Practitioner Acute Care; Emergency Provider Emergency Medicine; PCP Internal Medicine; Visit Provider Student in an Organized Health Care Education/Training Program
DX: K31.84 Gastroparesis (principal); R14.0 Abdominal distension (gaseous); R10.13 Epigastric pain; R10.10 Upper abdominal pain, unspecified; I82.612 Acute embolism and thrombosis of superficial veins of left upper extremity; K52.9 Noninfective gastroenteritis and colitis, unspecified; N30.10 Interstitial cystitis (chronic) without hematuria; R11.2 Nausea with vomiting, unspecified; K21.9 Gastro-esophageal reflux disease without esophagitis; F32.9 Major depressive disorder, single episode, unspecified; E66.01 Morbid (severe) obesity due to excess calories; Z93.3 Colostomy status; Z68.41 Body mass index [BMI] 40.0-44.9, adult; Z90.49 Acquired absence of other specified parts of digestive tract; Z03.89 Encounter for observation for other suspected diseases and conditions ruled out; Z23 Encounter for immunization
CPT/HCPCS: 36415; 74022; 80048; 80053; 83690; 83735; 85025; 85027; 87493; 87507; 90471; 90656; 93970; 96361; 96365; 96366; 96372; 96375; 96376; 99221; 99285; J1171; J1200; J1308; J1364; J1630; J1650; J2405; J2550; J2765; J7120

== ENCOUNTER → 2024-12-29 02:51 | Outpatient (BNV) | payer OTHER, SELFPAY | PROVIDERS: Emergency Provider Emergency Medicine; PCP Internal Medicine; Visit Provider Radiology Diagnostic Radiology | DX: R14.0 Abdominal distension (gaseous) (principal) | CPT/HCPCS: 74022 ==

== ENCOUNTER 2024-12-29 08:55 | Outpatient (BNV) | payer OTHER, SELFPAY | END 2024-12-31 18:15 | PROVIDERS: Admitting Provider Nurse Practitioner Acute Care; Emergency Provider Emergency Medicine; PCP Internal Medicine; Visit Provider Specialist | DX: I82.612 Acute embolism and thrombosis of superficial veins of left upper extremity (principal) | CPT/HCPCS: 93970 ==

== ENCOUNTER → 2024-12-29 08:55 | Outpatient (BNV) | payer OTHER, SELFPAY | PROVIDERS: Admitting Provider Nurse Practitioner Acute Care; Emergency Provider Emergency Medicine; PCP Internal Medicine; Visit Provider Nurse Practitioner Acute Care | DX: K31.84 Gastroparesis (principal) | CPT/HCPCS: 99223; 99232; 99239 ==

== ENCOUNTER → 2024-12-29 08:55 | Outpatient (BNV) | payer OTHER, SELFPAY | PROVIDERS: Admitting Provider Nurse Practitioner Acute Care; Emergency Provider Emergency Medicine; PCP Internal Medicine; Visit Provider Internal Medicine Gastroenterology | DX: K31.84 Gastroparesis (principal); R11.2 Nausea with vomiting, unspecified; Z93.3 Colostomy status | CPT/HCPCS: 99222 ==

== ENCOUNTER 2025-01-02 19:09 | Emergency (ER) | payer OTHER, SELFPAY ==
--- OUTSIDE RECORDS SUMMARY | 2024-01-02 10:45 | XMS_ITS | Encounter Summary ---
Author Organization [employer] Address [address] [place] [address] Care Team Providers Care Whitesmith Name Role Phone Nori Posey MD Primary Care Provider +1 -[phone] Encounter Details Date Type Department Care Team (Late st Contact Info) Description 01/02/2024 10:45 AM EDT Hospital Encounter TH HISTORIC ENCOUNTERS EASTERN CONVERSION ONLY Yossi Marina MD 175 [place] [address] Social History Tobacco Use Types Packs/Day Years [...] 3:17 PM EDT Nadia Wolfe RN * [place] Suicide Severity Rating Scale (Screener/Recent Self-Report) Question [...] home since Sunday. Still has a black [place] in visual field of L eye. 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 The majority of the actual hifd-ru-iujb visit was spent counseling the patient with respect to the current neurological picture. Yossi Marina MD documented in this encounter Plan of Treatment Upcoming Encounters Date Type Department Care Team (Late st Contact Info) Description 03/24/2025 11:30 AM EST Office Visit Internal Medicine - [address] [place] [phone] Janet Harding MD [address] [place] [address] 03/31/2025 11:00 AM EST Office Visit [facility] [address] [place] [phone] Rocío Watkins PA [address] [place] [address] documented as of this encounter Visit Diagnoses Not on filedocumented in this encounter Care Teams Whitesmith Relationship Specialty Start Date End Date Nori Posey MD PCP - General 01/30/23 04/22/24 documented as of this encounter
[2025-01-02 19:15] VITALS: BP 126/62; PULSE 89; RESP 18; TEMP 36.7; O2SAT 98; BMI 38.8
--- NOTE | 2025-01-02 19:16 | ED.GENADULT ---
HPI - General Adult General Chief complaint: General Medical Stated complaint: diarrhea/has a colostomy bad Time Seen by Provider: 01/02/25 21:06 Related Data Home Medications ?Medication ?Instructions ?Recorded ?Confirmed lamotrigine 200 mg tablet 200 mg PO DAILY 01/02/23 12/29/24 valacyclovir 500 mg tablet 500 mg PO DAILY 01/02/23 12/29/24 vortioxetine 20 mg tablet 20 mg PO DAILY 01/02/23 12/29/24 (Trintellix) hydroxyzine HCl 25 mg tablet 25 mg PO BEDTIME 01/08/24 12/29/24 lamotrigine 25 mg tablet 50 mg PO BEDTIME 01/08/24 12/29/24 bisacodyl 5 mg tablet,delayed 10 mg PO BEDTIME 07/25/24 12/29/24 release mirabegron 50 mg tablet,extended 50 mg PO DAILY 07/25/24 12/29/24 release 24 hr (Myrbetriq) eszopiclone 3 mg tablet (Lunesta) 3 mg PO BEDTIME 08/06/24 12/29/24 clonazepam 1 mg disintegrating 1 mg PO TID 12/08/24 12/29/24 tablet pantoprazole 40 mg tablet,delayed 40 mg PO DAILY@0630 12/08/24 12/29/24 release magnesium oxide 400 mg PO DAILY 12/21/24 12/29/24 prucalopride 2 mg tablet 2 mg PO DAILY 12/21/24 12/29/24 (Motegrity) promethazine 12.5 mg rectal mg DE PRN Motion Sickness/Allergies 12/29/24 suppository Previous Rx's ?Medication ?Instructions ?Recorded cholecalciferol (vitamin D3) 125 125 mcg PO DAILY #90 caps 05/30/24 mcg (5,000 unit) capsule docusate sodium 100 mg capsule 100 mg PO BID #60 caps 08/20/24 (Colace) metoclopramide HCl 5 mg tablet 5 mg PO Q8H PRN nausea and 11/13/24 vomiting #20 tabs esomeprazole magnesium 40 mg 40 mg PO DAILY #90 caps 11/24/24 capsule,delayed release ondansetron 4 mg disintegrating 4 mg PO Q8H PRN nausea and 11/24/24 tablet vomiting #30 tabs pskqva-phjkmmjh-djnmjai 1 cap PO QID #120 caps 11/25/24 12,000-38,000-60,000 unit capsule,delayed rel (Creon) sucralfate 1 gram tablet 1 g PO BID #60 tabs 12/17/24 erythromycin ethylsuccinate 200 400 mg (10 mL) PO Q8H 14 days #420 01/01/25 mg/5 mL oral powder for suspension mL metoclopramide HCl 10 mg tablet 10 mg PO Q6H 7 days #28 tabs 01/01/25 (Reglan) hydrocortisone 2.5 % topical cream 1 appl topical BID PRN pain #28 01/02/25 grams Allergies Allergy/AdvReac Type Severity Reaction Status Date / Time propofol Allergy Intermediate Itching Verified 01/02/25 19:22 morphine Allergy Mild Itching Verified 01/02/25 19:22 PMF Past Medical History Medical History History of lumbar puncture (06/13/23) Seizures Postprocedural seroma of skin and subcutaneous tissue following other procedure Colostomy in place Hx of flexible sigmoidoscopy (07/26/24) Proctosigmoiditis Stricture of sigmoid colon Colon wall thickening Obesity, Class II, BMI 35-39.9 IBS (irritable bowel syndrome) History of colitis Gastric ulcer Interstitial cystitis Occipital neuralgia of right side History of suicidal ideation Anxiety Agoraphobia MDD (major depressive disorder) PTSD (post-traumatic stress disorder) Surgical History Hx of History of colon surgery (08/12/24) History of tonsillectomy and adenoidectomy Hx of appendectomy H/O endoscopy (12/09/24) Hx of colonoscopy Hx of section H/O: hysterectomy Hx of cholecystectomy (~12/2022) Family History Family History Father Prostate cancer Maternal Uncle Colon cancer Maternal Grandmother Breast cancer Social History Social History Household Members: Spouse Housing: House Do you presently have visiting nurse or other home services: No Alcohol intake: never 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 Patient Tobacco Use Status: Former Tobacco user e-Cigarette/Vaping Use: Never Used Second Hand Smoke Exposure: No Substance Use Type: Marijuana Advance Directives: No Advance Directives Information Provided: No service: No Physical Exam ED Vital Signs: Vital Signs - 24 hr 01/02/25 19:15 01/02/25 21:30 Temperature 98.1 F 98.5 F Pulse Rate 89 64 Respiratory Rate 18 16 Blood Pressure 126/62 118/65 Pulse Oximetry 98 98 Oxygen Delivery Method Room Air Room Air BMI result Body Mass Index 38.8 Course Course Course Narrative: This is a rapid medical exam performed by Sara Epstein NP: Additional HPI, ROS, PE not included below will be deferred to primary provider. Patient is a 44y/o F with pmhx of gastroparesis, IBS status post colostomy placement, interstitial cystitis in July of this year presenting to the ED with report of have a bowel movement from her rectum today. Complains of rectal pain, called the surgeon as well as GI but did not hear back. Reports chronic abdominal pain, denies any new changes. Feels urge to have BM again but ostomy bag is empty. Plan: labs, will defer imaging to primary provider Medical Decision Making Lab Data 01/02/25 21:57 01/02/25 21:57 Labs: Lab Results 01/02/25 Range/Units 21:57 WBC 5.2 (4.8-10.8) X10*3/uL RBC 4.82 (4.20-5.50) X10*6/uL Hgb 13.0 (12.0-16.0) g/dl Hct 38.8 (37.0-47.0) % MCV 80.5 (80.0-98.0) fL MCH 27.0 (27.0-33.0) pg MCHC 33.5 (31.0-35.0) g/dl RDW 14.5 (11.0-16.0) % Plt Count 318 (160-400) X10*3/uL MPV 9.3 L (9.4-12.3) fL Immature Gran % (Auto) 0.2 (0.0-0.4) % Neut % (Auto) 49.0 (45-73) % Lymph % (Auto) 37.8 (20-40) % [place] % (Auto) 6.8 (2-11) % Eos % (Auto) 5.6 H (0-4) % Baso % (Auto) 0.6 (0-2) % Lymph # (Auto) 2.0 (1.2-4.9) X10*3/uL [place] # (Auto) 0.4 (0.1-1.2) X10*3/uL Eos # (Auto) 0.3 (0.0-0.4) X10*3/uL Baso # (Auto) 0.0 (0.0-0.2) X10*3/uL Abs Immat Gran (auto) 0.01 (0.00-0.03) X10*3/uL Absolute Neuts (auto) 2.5 (2.0-8.3) x10*3/uL Absolute Nucleated RBC 0.000 (0.0-0.012) X10*3/uL Nucleated RBC % (auto) 0.0 (0.0-0.2) /100WBC Sodium 140 (135-145) mmol/L Potassium 4.1 (3.3-5.1) mmol/L Chloride 108 (96-108) mmol/L Carbon Dioxide 27 (22-29) mmol/L Anion Gap 9 L (12-20) BUN 7 L (9-16) mg/dL Creatinine 0.72 (0.5-1.4) mg/dL Estim Creat Clear Calc 117.4 Estimated GFR > 60 Random Glucose 101 (60-115) mg/dL Calcium 9.3 D (8.4-10.2) mg/dL Total Bilirubin 0.2 (0.0-1.0) mg/dL Direct Bilirubin < 0.2 (0.0-0.5) mg/dL AST 44 H (5-31) U/L ALT 67 H (0-31) U/L Alkaline Phosphatase 96 (39-117) U/L Total Protein 7.2 (6.5-8.0) g/dL Albumin 4.0 (3.5-5.0) g/dL Lipase 25 (8-78) U/L Discharge Plan Discharge Clinical Impression: S/P colostomy Patient Disposition: Home, Self-Care Instructions: Colostomy Care (ED) Prescriptions: New hydrocortisone 2.5 % cream 1 appl topical BID PRN (Reason: pain) Qty: 28 0RF No Action metoclopramide HCl 5 mg tablet 5 mg PO Q8H PRN (Reason: nausea and vomiting) Qty: 20 0RF Creon 12,000-38,000 -60,000 unit capsule,delayed release(DR/EC) 1 cap PO QID Qty: 120 0RF Rx Instructions: administer with meals and/or snacks -- MAX OF 4 CAPS PER DAY. sucralfate 1 gram tablet 1 g PO BID Qty: 60 3RF Patient Comments: pt takes with 8 ounces of water 1 hour before her other medications. valacyclovir 500 mg tablet 500 mg PO DAILY Trintellix 20 mg tablet 20 mg PO DAILY lamotrigine 200 mg tablet 200 mg PO DAILY Rx Instructions: 200mg in morning, 25mg at night lamotrigine 25 mg tablet 50 mg PO BEDTIME Rx Instructions: 200mg in morning, 25mg at night docusate sodium [Colace] 100 mg capsule 100 mg PO BID Qty: 60 3RF clonazepam 1 mg tablet,disintegrating 1 mg PO TID pantoprazole 40 mg tablet,delayed release (DR/EC) 40 mg PO DAILY@0630 prucalopride [Motegrity] 2 mg tablet 2 mg PO DAILY magnesium oxide 400 mg magnesium capsule 400 mg PO DAILY promethazine 12.5 mg suppository DE PRN (Reason: Motion Sickness/Allergies) erythromycin ethylsuccinate 200 mg/5 mL Suspension For Reconstitution 400 mg PO Q8H 14 Days Qty: 420 3RF metoclopramide HCl [Reglan] 10 mg tablet 10 mg PO Q6H 7 Days Qty: 28 0RF bisacodyl 5 mg tablet,delayed release (DR/EC) 10 mg PO BEDTIME mirabegron [Myrbetriq] 50 mg tablet extended release 24 hr 50 mg PO DAILY hydroxyzine HCl 25 mg tablet 25 mg PO BEDTIME cholecalciferol (vitamin D3) 125 mcg (5,000 unit) capsule 125 mcg PO DAILY Qty: 90 3RF eszopiclone [Lunesta] 3 mg tablet 3 mg PO BEDTIME ondansetron 4 mg tablet,disintegrating 4 mg PO Q8H PRN (Reason: nausea and vomiting) Qty: 30 1RF esomeprazole magnesium 40 mg capsule,delayed release(DR/EC) 40 mg PO DAILY Qty: 90 5RF Rx Instructions: before meals Referrals: Jesus Allen MD [Physician, General Surgery] - 01/05/25 Print Language: Armenian
--- OUTSIDE RECORDS SUMMARY | 2025-01-02 21:19 | XMS_ITS | Clinical Summary ---
Author Organization [facility] Address [address] [place] [address] Care Team Providers Care Regional Project Manager Name Role Phone Nori Posey MD Primary Care Provider [phone] Allergies Active Allergy Reactions Criticality Noted Date Comments Barling 08/30/2023 Medications Medication Sig Dispensed Refills Start [...] age to complete this topic Care Teams Regional Project Manager Relationship Specialty Start Date End Date Nori Posey MD [address] [place] [id number] PCP - General Internal Medicine 08/01/23
--- OUTSIDE RECORDS SUMMARY | 2025-01-02 21:20 | XMS_ITS | Clinical Summary ---
Author Organization [facility] Address [address] [place] [address] Phone Care Team Providers Care Civil Process Server Name Role Phone Janet Harding MD Primary Care Provider [phone] Allergies Active Allergy Reactions Criticality Noted Date [...] by mouth 1 (one) time each day. 09/10/19 25 Active senna 8.6 mg tablet TAKE TWO TABLETS BY MOUTH EVERY DAY AT BEDTIME NEEDED FOR CONSTIPATION 07/26/19 25 Active metoclopramide (REGLAN) 5 mg tablet take 1 tablet orally every 8 hours as needed for nausea and vomiting 11/14/19 25 Active sucralfate (CARAFATE) 1 gram tablet Take 1 tablet (1 g total) by mouth. 11/03/19 23 Active famotidine (PEPCID) 20 mg tabletIndications: Slow transit constipation,Gastr oparesis TAKE 1 TABLET BY MOUTH TWICE A DAY 180 tablet 12/03/19 25 Active Active Problems Problem Noted Date Diagnosed Date Colostomy in place ([facility] V24, [facility] V28) Class 1 obesity 11/24/2024 Internal hemorrhoid [...] 2:40 PM EDT Consult Gastroenterology - [address] [facility] [address] [phone] Julian Sanchez MD Slow transit constipation (Primary Dx); Gastroparesis 2024 Telephone Internal Medicine - [facility] [address] [place] [phone] Janet Harding MD 10/29/2024 8:36 AM EDT - 10/29/2024 11:59 PM EDT Hospital Encounter [facility] MRI [address] [place] [phone] Gait abnormality; Migraine without status migrainosus, not intractable, unspecified migraine type Discharge Disposition: Home or Self Care 10/29/2024 8:29 AM EDT - 10/29/2024 11:59 PM EDT Hospital Encounter [facility] MRI [address] [place] [address] Gait abnormality; Migraine without status migrainosus, not intractable, unspecified migraine type Discharge Disposition: Home or Self Care from Last 3 Months Immunizations Immunization Administration Dates Next Due Tdap Tetanus diptheria acell ular pertussis (Boostrix; Adacel) 7yo and older 05/04/2023 Surgical History Surgery Date Site/Laterality Comments CHOLECYSTECTOMY PROCEDURE: [place] LAPAROSCOPY SURG CHOLECYSTECTOMY HYSTERECTOMY 2014 PROCEDURE: HISTORICAL [...] stress disorder) Suicide and self-inflicted i njury ([facility] V24, [facility] V28) DX:Suicide and self-inflict ed injury ([facility]) Major depression, chronic DX:Percy or [...] DX:Guaiac positive stools Hematuria DX:Hematuria Uterine cancer ([facility] V24, [facility] V28) 2014 DX:Uterine cancer ([facility]) Interstitial cystitis DX:Interst itial cystitis [...] AM EST Office Visit Internal Medicine - [facility] [address], [place] [phone] Janet Harding MD [address] [place], [place] 03/31/2025 11:00 AM EST Office Visit [facility] [address] [facility] [address] [place] [phone] Rocío Watkins PA [address] [place] [address] Health Maintenance Due Date Last Done Comments [...] Name Priority Date/Time Associated Diagnosis Comments EXTERNAL ULTRASOUND REPORT 12/31/2024 EXTERNAL XRAY REPORT 12/29/2024 EXTERNAL CLINICAL LAB 12/08/2024 EXTERNAL NUC MED REPORT 11/12/2024 MR BRAIN WO AND W CONTRAST Routine 10/29/2024 10:31 AM EDT Gait abnormality Migraine without status migrainosus, not intractable, unspecified migraine type MR CERVICAL SPINE WO AND W CONTRAST Routine 10/29/2024 10:30 AM EDT Gait abnormality Migraine without status migrainosus, not intractable, unspecified migraine type EXTERNAL CT REPORT 10/07/[address] REPORT 10/07/2024 HM DEPRESSION SCREENING Routine 05/04/2023 TAY SCREENING DIGITAL Routine 06/05/2022 11:27 AM EST Encounter for screening mammogram for malignant neoplasm of breast HEPATITIS C SCREENING Routine 03/06/2022 LIPID PANEL Routine 03/06/2022 from Last 3 Months or Most Recently Relevant to Health Maintenance Results * External Ultrasound Report (12/31/2024) Anatomical Region Laterality Modality Ultrasound us Provider [facility] IMG US PROCEDURES Final Result * External Xray Report (12/29/2024) Anatomical Region Laterality Modality Radiographic Hannah ging us Provider [facility] IMG XR PROCEDURES Final Result * External clinical lab (12/08/2024) us Provider [facility] LAB BLOOD ORDERABLES Fin al Result [...] Signed Date: 10/29/2024 15:57 ET Workstation ID: [id number] Transcribed By: Self Edit Transcribed Date: 10/29/2024 [...] Signed Date: 10/29/2024 15:57 ET Workstation ID: [id number] Transcribed By: Self Edit Transcribed Date: 10/29/2024 15:48 ET Yossi Marina MD IM MRI PROCEDURES Final Result * MR Cervical [...] Signed Date: 10/29/2024 16:00 ET Workstation ID: [id number] Transcribed By: Self Edit Transcribed Date: 10/29/2024 [...] Signed Date: 10/29/2024 16:00 ET Workstation ID: [id number] Transcribed By: Self Edit Transcribed Date: 10/29/2024 [...] EST Narrative 06/05/2022 11:27 AM EST [facility] Diagnostic Imaging Department [address] [place], [place] [id number] Patient: SMITH PAULA REDDO.B./Age/Sex: 1980 - 41 - F Unit#: [id number] Location/Status: SPDIMAM/REG CLI Mnemonic[facility] Order[facility] Physician: VIDAL GARY DO [facility] Screening Digital - 06/05/22 - 854 EXAM: [facility] Screening Digital EXAM DATE AND TIME: 06/05/2022 8:56 AM HISTORY: Screening. Baseline exam. Maternal grandmother had breast carcinoma. COMPARISON: No comparison imaging. TECHNIQUE: CC and MLO views of both breasts were obtained using full field digital mammography. Bilateral digital breast tomosynthesis was performed in the MLO projection. Computer aided detection with [employer] 7.2-H and [employer] 3D 3.1 was employed. TISSUE DENSITY: b. [...] Routine screening mammogram BILATERAL in 1 year. [address]20, 36500 3341F, 7025F Dictating Physician: KIYA MYLES MD Electronically Signed by: KIYA MYLES MD Dic Date/Time: 06/05/22 1126 Sign date/Time: 06/05/22 112 Procedure Note Kiya Myles MD - 05/04/2023 [facility] Diagnostic Imaging Department [address] [place] [address] Patient: LUIS PAULA REDD /Age/Sex: 1980 - 41 - F Unit#: [id number] Location/Status: SPDIMAM/REG CLI Mnemonic/Ordering Site: [facility] Ordering Physician: VIDAL GARY DO [facility] Screening Digital - 06/05/22 - 854 EXAM: [facility] Screening Digital EXAM DATE AND TIME: 06/05/2022 8:56 AM HISTORY: Screening. Baseline exam. Maternal grandmother had breastcarcinoma. COMPARISON: No comparison imaging. TECHNIQUE: CC and MLO views of both breasts were obtained using fullfield digital mammography. Bilateral digital breast tomosynthesis was performedin the MLO projection. Computer aided detection with [employer] [place] [employer] 7.2-H and[employer] 3D 3.1 was employed. TISSUE DENSITY: b. [...] Routine screening mammogram BILATERAL in 1 year. [address]9028, [address]135 3341F, 7025F Dictating Physician: KIYA MYLES MD Electronically Signed by: KIYA MYLES MD Dic Date/Time: 06/05/22 1126 Sign date/Time: 06/05/22 1127 Vidal Gary DO IMG BI PROCEDURES Final Result * Hepatitis C Screening (03/06/2022) Pathologist [facility] Hepatitis C Screening Abstracted Adonis Russo MD HEALTH MAINTENANCE Final Result * (ABNORMAL) Lipid panel (03/06/2022) LDL/HDL Ratio 4 0 - 4 Triglycerides 104 0 - 150 mg/dL Cholesterol 203(A) 0 - 200 mg/dL HDL 53 >=40 mg/dL LDL Cholesterol 130(A) 0 - 100 mg/dL Blood Venous blood specimen / Unknown us Historical Provider LAB BLOOD ORDERABLES Mari castanon Result from Last 3 Months or Most Recently Relevant to Health Maintenance Insurance [facility] [employer] Care Teams Civil Process Server Relationship Specialty Start Date End Date Janet Harding MD [address] [place] [phone] PCP - General Internal Medicine 08/04/24
--- NOTE | 2025-01-02 21:27 | ED.GENADULT ---
HPI - General Adult General Chief complaint: General Medical Stated complaint: diarrhea/has a colostomy bad Time Seen by Provider: 01/02/25 21:06 History of Present Illness HPI narrative: 44-year-old female history of hysterectomy history of having a colostomy for gastroparesis constipation presented today with having stool coming from her anus. This is new. Having some pain localized to that area. There is small amount of output from the colostomy site. There is no fever no chills. No systemic complaints. Patient was just discharged from the hospital yesterday for gastroenteritis. No chest pain or shortness breath. No vaginal bleeding. Related Data Home Medications ?Medication ?Instructions ?Recorded ?Confirmed lamotrigine 200 mg tablet 200 mg PO DAILY 01/02/23 12/29/24 valacyclovir 500 mg tablet 500 mg PO DAILY 01/02/23 12/29/24 vortioxetine 20 mg tablet 20 mg PO DAILY 01/02/23 12/29/24 (Trintellix) hydroxyzine HCl 25 mg tablet 25 mg PO BEDTIME 01/08/24 12/29/24 lamotrigine 25 mg tablet 50 mg PO BEDTIME 01/08/24 12/29/24 bisacodyl 5 mg tablet,delayed 10 mg PO BEDTIME 07/25/24 12/29/24 release mirabegron 50 mg tablet,extended 50 mg PO DAILY 07/25/24 12/29/24 release 24 hr (Myrbetriq) eszopiclone 3 mg tablet (Lunesta) 3 mg PO BEDTIME 08/06/24 12/29/24 clonazepam 1 mg disintegrating 1 mg PO TID 12/08/24 12/29/24 tablet pantoprazole 40 mg tablet,delayed 40 mg PO DAILY@0630 12/08/24 12/29/24 release magnesium oxide 400 mg PO DAILY 12/21/24 12/29/24 prucalopride 2 mg tablet 2 mg PO DAILY 12/21/24 12/29/24 (Motegrity) promethazine 12.5 mg rectal mg MA PRN Motion Sickness/Allergies 12/29/24 suppository Previous Rx's ?Medication ?Instructions ?Recorded cholecalciferol (vitamin D3) 125 125 mcg PO DAILY #90 caps 05/30/24 mcg (5,000 unit) capsule docusate sodium 100 mg capsule 100 mg PO BID #60 caps 08/20/24 (Colace) metoclopramide HCl 5 mg tablet 5 mg PO Q8H PRN nausea and 11/13/24 vomiting #20 tabs esomeprazole magnesium 40 mg 40 mg PO DAILY #90 caps 11/24/24 capsule,delayed release ondansetron 4 mg disintegrating 4 mg PO Q8H PRN nausea and 11/24/24 tablet vomiting #30 tabs [id number] 1 cap PO QID #120 caps 11/25/24 12,000-38,000-60,000 unit capsule,delayed rel (Creon) sucralfate 1 gram tablet 1 g PO BID #60 tabs 12/17/24 erythromycin ethylsuccinate 200 400 mg (10 mL) PO Q8H 14 days #420 01/01/25 mg/5 mL oral powder for suspension mL metoclopramide HCl 10 mg tablet 10 mg PO Q6H 7 days #28 tabs 01/01/25 (Reglan) hydrocortisone 2.5 % topical cream 1 appl topical BID PRN pain #28 01/02/25 grams Allergies Allergy/AdvReac Type Severity Reaction Status Date / Time propofol Allergy Intermediate Itching Verified 01/02/25 19:22 morphine Allergy Mild Itching Verified 01/02/25 19:22 Review of Systems Review of Systems: Positive stool from the anus Yes all other systems are reviewed and are negative PMFSH Past Medical History Attestation statement: The following information was validated with the patient. Medical History History of lumbar puncture (06/13/23) Seizures Postprocedural seroma of skin and subcutaneous tissue following other procedure Colostomy in place Hx of flexible sigmoidoscopy (07/26/24) Proctosigmoiditis Stricture of sigmoid colon Colon wall thickening Obesity, Class II, BMI 35-39.9 IBS (irritable bowel syndrome) History of colitis Gastric ulcer Interstitial cystitis Occipital neuralgia of right side History of suicidal ideation Anxiety Agoraphobia MDD (major depressive disorder) PTSD (post-traumatic stress disorder) Surgical History Hx of History of colon surgery (08/12/24) History of tonsillectomy and adenoidectomy Hx of appendectomy H/O endoscopy (12/09/24) Hx of colonoscopy Hx of section H/O: hysterectomy Hx of cholecystectomy (~12/2022) Family History Family History Father Prostate cancer Maternal Uncle Colon cancer Maternal Grandmother Breast cancer Social History Social History Household Members: Spouse Housing: House Do you presently have visiting nurse or other home services: No Alcohol intake: never 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 Patient Tobacco Use Status: Former Tobacco user e-Cigarette/Vaping Use: Never Used Second Hand Smoke Exposure: No Substance Use Type: Marijuana Advance Directives: No Advance Directives Information Provided: No service: No Physical Exam ED Exam Exam: Appearance: Alert. Oriented X3. No acute distress. Eyes: Pupils equal, round and reactive to light. ENT: Pharynx normal. Neck: Normal inspection. Neck supple. No lymph nodes noted. No crepitus CVS: Normal heart rate and rhythm. Pulses normal. Normal S1 and S2 Respiratory: No respiratory distress. Breath sounds normal. No Wheezing. No rales Abdomen: Soft and nontender. No rigidity. No distention. good BS x4. Liquid output noted at the ostomy Skin: Skin warm and dry. Normal skin color. Normal skin turgor. Extremities: No lower extremity edema. Neurovascular intact to all extremities. No Lacerations. No Rash Neuro: Oriented X 3. No motor deficit. No sensory deficit. Moving all extermities. No slurred speech Vital Signs: Vital Signs - 24 hr 01/02/25 19:15 01/02/25 21:30 Temperature 98.1 F 98.5 F Pulse Rate 89 64 Respiratory Rate 18 16 Blood Pressure 126/62 118/65 Pulse Oximetry 98 98 Oxygen Delivery Method Room Air Room Air BMI result Body Mass Index 38.8 Medical Decision Making Medical Decision Making MDM Narrative: Patient presents today with having a colostomy done in July. Now noticing stool from her rectum. Question etiology patient's lab is approximately baseline. Patient's case consulted by surgery. Will have patient follow-up on an outpatient basis. In stable condition. No distress. Patient had a CT scan of the inner last month which was grossly negative. I reviewed the results Differential Diagnosis Differential Diagnoses: The differential diagnosis associated with the presentation includes Admission/Observation Consideration of admission/observation: Escalation of care including admission/observation considered Well-appearing no distress no need to admit Consult Healthcare Provider Management of the patient was discussed with: Automation Machine Operator (General surgery) Lab Data [facility] Lab Attestation statement: I reviewed the patient's lab results. 01/02/25 21:57 01/02/25 21:57 Labs: Lab Results 01/02/25 Range/Units 21:57 WBC 5.2 (4.8-10.8) X10*3/uL RBC 4.82 (4.20-5.50) X10*6/uL Hgb 13.0 (12.0-16.0) g/dl Hct 38.8 (37.0-47.0) % MCV 80.5 (80.0-98.0) fL MCH 27.0 (27.0-33.0) pg MCHC 33.5 (31.0-35.0) g/dl RDW 14.5 (11.0-16.0) % Plt Count 318 (160-400) X10*3/uL MPV 9.3 L (9.4-12.3) fL Immature Gran % (Auto) 0.2 (0.0-0.4) % Neut % (Auto) 49.0 (45-73) % Lymph % (Auto) 37.8 (20-40) % Kaufman % (Auto) 6.8 (2-11) % Eos % (Auto) 5.6 H (0-4) % Baso % (Auto) 0.6 (0-2) % Lymph # (Auto) 2.0 (1.2-4.9) X10*3/uL Kaufman # (Auto) 0.4 (0.1-1.2) X10*3/uL Eos # (Auto) 0.3 (0.0-0.4) X10*3/uL Baso # (Auto) 0.0 (0.0-0.2) X10*3/uL Abs Immat Gran (auto) 0.01 (0.00-0.03) X10*3/uL Absolute Neuts (auto) 2.5 (2.0-8.3) x10*3/uL Absolute Nucleated RBC 0.000 (0.0-0.012) X10*3/uL Nucleated RBC % (auto) 0.0 (0.0-0.2) /100WBC Sodium 140 (135-145) mmol/L Potassium 4.1 (3.3-5.1) mmol/L Chloride 108 (96-108) mmol/L Carbon Dioxide 27 (22-29) mmol/L Anion Gap 9 L (12-20) BUN 7 L (9-16) mg/dL Creatinine 0.72 (0.5-1.4) mg/dL Estim Creat Clear Calc 117.4 Estimated GFR > 60 Random Glucose 101 (60-115) mg/dL Calcium 9.3 D (8.4-10.2) mg/dL Total Bilirubin 0.2 (0.0-1.0) mg/dL Direct Bilirubin < 0.2 (0.0-0.5) mg/dL AST 44 H (5-31) U/L ALT 67 H (0-31) U/L Alkaline Phosphatase 96 (39-117) U/L Total Protein 7.2 (6.5-8.0) g/dL Albumin 4.0 (3.5-5.0) g/dL Lipase 25 (8-78) U/L Independent Historian Clinical information obtained from an independent historian. History obtained from or confirmed by: Friend External Record Review External record reviewed: Inpatient record Prescription Management No need for pain medication Chronic Conditions Status post colostomy Social Determinants Patient?s care significantly limited by Social Determinants of Health including: Problems related to primary support group Discharge Plan Discharge Clinical Impression: S/P colostomy Patient Disposition: Home, Self-Care Instructions: Colostomy Care (ED) Prescriptions: New hydrocortisone 2.5 % cream 1 appl topical BID PRN (Reason: pain) Qty: 28 0RF No Action metoclopramide HCl 5 mg tablet 5 mg PO Q8H PRN (Reason: nausea and vomiting) Qty: 20 0RF Creon 12,000-38,000 -60,000 unit capsule,delayed release(DR/EC) 1 cap PO QID Qty: 120 0RF Rx Instructions: administer with meals and/or snacks -- MAX OF 4 CAPS PER DAY. sucralfate 1 gram tablet 1 g PO BID Qty: 60 3RF Patient Comments: pt takes with 8 ounces of water 1 hour before her other medications. valacyclovir 500 mg tablet 500 mg PO DAILY Trintellix 20 mg tablet 20 mg PO DAILY lamotrigine 200 mg tablet 200 mg PO DAILY Rx Instructions: 200mg in morning, 25mg at night lamotrigine 25 mg tablet 50 mg PO BEDTIME Rx Instructions: 200mg in morning, 25mg at night docusate sodium [Colace] 100 mg capsule 100 mg PO BID Qty: 60 3RF clonazepam 1 mg tablet,disintegrating 1 mg PO TID pantoprazole 40 mg tablet,delayed release (DR/EC) 40 mg PO DAILY@0630 prucalopride [Motegrity] 2 mg tablet 2 mg PO DAILY magnesium oxide 400 mg magnesium capsule 400 mg PO DAILY promethazine 12.5 mg suppository MA PRN (Reason: Motion Sickness/Allergies) erythromycin ethylsuccinate 200 mg/5 mL Suspension For Reconstitution 400 mg PO Q8H 14 Days Qty: 420 3RF metoclopramide HCl [Reglan] 10 mg tablet 10 mg PO Q6H 7 Days Qty: 28 0RF bisacodyl 5 mg tablet,delayed release (DR/EC) 10 mg PO BEDTIME mirabegron [Myrbetriq] 50 mg tablet extended release 24 hr 50 mg PO DAILY hydroxyzine HCl 25 mg tablet 25 mg PO BEDTIME cholecalciferol (vitamin D3) 125 mcg (5,000 unit) capsule 125 mcg PO DAILY Qty: 90 3RF eszopiclone [Lunesta] 3 mg tablet 3 mg PO BEDTIME ondansetron 4 mg tablet,disintegrating 4 mg PO Q8H PRN (Reason: nausea and vomiting) Qty: 30 1RF esomeprazole magnesium 40 mg capsule,delayed release(DR/EC) 40 mg PO DAILY Qty: 90 5RF Rx Instructions: before meals Referrals: Jesus Allen MD [Physician, General Surgery] - 01/05/25 Print Language: Canadian
[2025-01-02 21:30] VITALS: BP 118/65; PULSE 64; RESP 16; TEMP 36.9; O2SAT 98
[2025-01-02 22:00] LABS: MANUAL DIFF FLAG NO
[2025-01-02 22:01] LABS: Hematocrit 38.8 % (37.0-47.0); Hemoglobin 13.0 g/dl (12.0-16.0); Imm Gran Abs Auto 0.01 X10*3/uL (0.00-0.03); Imm Gran Pct Auto 0.2 % (0.0-0.4); Lymphocytes Absolute Auto 2.0 X10*3/uL (1.2-4.9); Mean Corpuscular HGB Conc 33.5 g/dl (31.0-35.0); Mean Corpuscular Hemoglobin 27.0 pg (27.0-33.0); Mean Corpuscular Volume 80.5 fL (80.0-98.0); NRBC Abs Auto 0.000 X10*3/uL (0.0-0.012); NRBC Pct Auto 0.0 /100WBC (0.0-0.2); Platelet Count 318 X10*3/uL (160-400); Red Blood Count 4.82 X10*6/uL (4.20-5.50); White Blood Count 5.2 X10*3/uL (4.8-10.8)
[2025-01-02 22:23] LABS: Alanine Aminotransferase 67 U/L (0-31); Albumin Level 4.0 g/dL (3.5-5.0); Alkaline Phosphatase 96 U/L (39-117); Anion Gap 9 (12-20); Aspartate Amino Transferase 44 U/L (5-31); Blood Urea Nitrogen 7 mg/dL (9-16); Calcium 9.3 mg/dL (8.4-10.2); Carbon Dioxide 27 mmol/L (22-29); Chloride 108 mmol/L (96-108); Creatinine Clr Calc Pharmacy 117.4; Estimated Glomerular Filt Rate > 60; Lipase 25 U/L (8-78); Potassium 4.1 mmol/L (3.3-5.1); Sodium 140 mmol/L (135-145); Total Protein 7.2 g/dL (6.5-8.0)
[2025-01-02 22:44] VITALS: BP 118/65; PULSE 64; RESP 16; TEMP 36.9; O2SAT 98
== END 2025-01-02 22:44 | disposition home or self-care (01) ==
PROVIDERS: Emergency Provider Emergency Medicine Emergency Medical Services
DX: K31.84 Gastroparesis (principal); K59.00 Constipation, unspecified; Z79.899 Other long term (current) drug therapy; Z87.891 Personal history of nicotine dependence
CPT/HCPCS: 36415; 80048; 80076; 83690; 85025; 99283; 99284

== ENCOUNTER 2025-01-05 20:10 | Emergency (ER) | payer OTHER, SELFPAY ==
[2025-01-05 20:35] VITALS: BP 139/71; PULSE 89; RESP 20; TEMP 37; O2SAT 98; BMI 39.9
[2025-01-05 20:54] LABS: MANUAL DIFF FLAG NO
[2025-01-05 21:02] LABS: Hematocrit 39.0 % (37.0-47.0); Hemoglobin 13.2 g/dl (12.0-16.0); Imm Gran Abs Auto 0.02 X10*3/uL (0.00-0.03); Imm Gran Pct Auto 0.2 % (0.0-0.4); Lymphocytes Absolute Auto 2.8 X10*3/uL (1.2-4.9); Mean Corpuscular HGB Conc 33.8 g/dl (31.0-35.0); Mean Corpuscular Hemoglobin 27.4 pg (27.0-33.0); Mean Corpuscular Volume 81.1 fL (80.0-98.0); NRBC Abs Auto 0.000 X10*3/uL (0.0-0.012); NRBC Pct Auto 0.0 /100WBC (0.0-0.2); Platelet Count 342 X10*3/uL (160-400); Red Blood Count 4.81 X10*6/uL (4.20-5.50); White Blood Count 9.2 X10*3/uL (4.8-10.8)
[2025-01-05 21:12] LABS: Alanine Aminotransferase 35 U/L (0-31); Albumin Level 4.1 g/dL (3.5-5.0); Alkaline Phosphatase 87 U/L (39-117); Anion Gap 13 (12-20); Aspartate Amino Transferase 27 U/L (5-31); Blood Urea Nitrogen 9 mg/dL (9-16); Calcium 9.2 mg/dL (8.4-10.2); Carbon Dioxide 22 mmol/L (22-29); Chloride 110 mmol/L (96-108); Creatinine Clr Calc Pharmacy 129.3; Estimated Glomerular Filt Rate > 60; Lipase 30 U/L (8-78); Magnesium 2.1 mg/dL (1.6-2.6); Potassium 4.1 mmol/L (3.3-5.1); Sodium 141 mmol/L (135-145); Total Protein 7.4 g/dL (6.5-8.0)
--- NOTE | 2025-01-05 23:49 | ED.GENADULT ---
HPI - General Adult General Chief complaint: Abdominal Pain Stated complaint: abd pain Time Seen by Provider: 01/05/25 23:49 Source: patient Mode of arrival: ambulatory Limitations: no limitations History of Present Illness ED Provider: Ashtyn Oshea PA-C HPI narrative: This is a 44 year old female with a history of occipital neuralgia, depression, anxiety, PTSD, body dysmorphia, agoraphobia, PNES, asthma, chronic abdominal pain/IBS and multiple abdominal surgeries including previous cholecystectomy, hysterectomy, and a colostomy that she states was placed due to her dysmotility/constipation that presents for evaluation of abdominal pain. She reports that she was seen at [facility] on 01/04/2025 for abdominal pain, she states that they were concerned for fistula. The imaging there was negative and she went home. She states that the next day she passed stool rectally despite her colostomy and her pain increased again at that time. She points to the pain in the epigastric area. She states that she is consuming one ensure daily and struggling to consume other nutrition sources and water secondary to pain and nausea. She reports that she has chills and feels weak. She reports that she fell today and bruised her right thigh but did not hit her head. She endorses fatigue and difficulty sleeping. Related Data Home Medications ?Medication ?Instructions ?Recorded ?Confirmed lamotrigine 200 mg tablet 200 mg PO DAILY 01/02/23 12/29/24 valacyclovir 500 mg tablet 500 mg PO DAILY 01/02/23 12/29/24 vortioxetine 20 mg tablet 20 mg PO DAILY 01/02/23 12/29/24 (Trintellix) hydroxyzine HCl 25 mg tablet 25 mg PO BEDTIME 01/08/24 12/29/24 lamotrigine 25 mg tablet 50 mg PO BEDTIME 01/08/24 12/29/24 bisacodyl 5 mg tablet,delayed 10 mg PO BEDTIME 07/25/24 12/29/24 release mirabegron 50 mg tablet,extended 50 mg PO DAILY 07/25/24 12/29/24 release 24 hr (Myrbetriq) eszopiclone 3 mg tablet (Lunesta) 3 mg PO BEDTIME 08/06/24 12/29/24 clonazepam 1 mg disintegrating 1 mg PO TID 12/08/24 12/29/24 tablet pantoprazole 40 mg tablet,delayed 40 mg PO DAILY@0630 12/08/24 12/29/24 release magnesium oxide 400 mg PO DAILY 12/21/24 12/29/24 prucalopride 2 mg tablet 2 mg PO DAILY 12/21/24 12/29/24 (Motegrity) promethazine 12.5 mg rectal mg KS PRN Motion Sickness/Allergies 12/29/24 suppository Previous Rx's ?Medication ?Instructions ?Recorded cholecalciferol (vitamin D3) 125 125 mcg PO DAILY #90 caps 05/30/24 mcg (5,000 unit) capsule docusate sodium 100 mg capsule 100 mg PO BID #60 caps 08/20/24 (Colace) metoclopramide HCl 5 mg tablet 5 mg PO Q8H PRN nausea and 11/13/24 vomiting #20 tabs esomeprazole magnesium 40 mg 40 mg PO DAILY #90 caps 11/24/24 capsule,delayed release ondansetron 4 mg disintegrating 4 mg PO Q8H PRN nausea and 11/24/24 tablet vomiting #30 tabs [id number]-ovrhhllp-sgwfnua 1 cap PO QID #120 caps 11/25/24 12,000-38,000-60,000 unit capsule,delayed rel (Creon) sucralfate 1 gram tablet 1 g PO BID #60 tabs 12/17/24 erythromycin ethylsuccinate 200 400 mg (10 mL) PO Q8H 14 days #420 01/01/25 mg/5 mL oral powder for suspension mL metoclopramide HCl 10 mg tablet 10 mg PO Q6H 7 days #28 tabs 01/01/25 (Reglan) hydrocortisone 2.5 % topical cream 1 appl topical BID PRN pain #28 01/02/25 grams Allergies Allergy/AdvReac Type Severity Reaction Status Date / Time propofol Allergy Intermediate Itching Verified 01/05/25 20:38 morphine Allergy Mild Itching Verified 01/05/25 20:38 Review of Systems Constitutional: Constitutional: Reports as per HPI Eyes: Eyes: Reports as per HPI ENT: Reports as per HPI Cardiovascular: Cardiovascular: Reports as per HPI Respiratory: Respiratory: Reports as per HPI Gastrointestinal: Gastrointestinal: Reports as per HPI Genitourinary: Genitourinary: Reports as per HPI Musculoskeletal: Musculoskeletal: Reports as per HPI Integumentary/Breasts: Skin/Breast: Reports as per HPI Neurologic: Reports as per HPI Psychiatric: Psychiatric: Reports as per HPI Endocrine: Endocrine: Reports as per HPI Hematologic/Lymphatic: Hematologic/Lymphatic: Reports as per HPI Allergic/Immunologic: Allergic/Immunologic: Reports as per HPI [facility] Past Medical History Attestation statement: The following information was validated with the patient. Source: old records reviewed and nursing notes reviewed Medical History Gastroparesis History of lumbar puncture (06/13/23) Seizures Postprocedural seroma of skin and subcutaneous tissue following other procedure Colostomy in place Hx of flexible sigmoidoscopy (07/26/24) Proctosigmoiditis Stricture of sigmoid colon Colon wall thickening Obesity, Class II, BMI 35-39.9 IBS (irritable bowel syndrome) History of colitis Gastric ulcer Interstitial cystitis Occipital neuralgia of right side History of suicidal ideation Anxiety Agoraphobia MDD (major depressive disorder) PTSD (post-traumatic stress disorder) Surgical History Hx of History of colon surgery (08/12/24) History of tonsillectomy and adenoidectomy Hx of appendectomy H/O endoscopy (12/09/24) Hx of colonoscopy Hx of section H/O: hysterectomy Hx of cholecystectomy (~12/2022) Family History Family History Father Prostate cancer Maternal Uncle Colon cancer Maternal Grandmother Breast cancer Social History Social History Household Members: Spouse Housing: House Do you presently have visiting nurse or other home services: No Alcohol intake: never 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 Patient Tobacco Use Status: Former Tobacco user Smoked in Last 30 Days: No e-Cigarette/Vaping Use: Never Used Second Hand Smoke Exposure: No Use of substances other than those prescribed or required for medical reasons: No Substance Use Type: Marijuana Advance Directives: No Advance Directives Information Provided: Yes Patient : No service: No Physical Exam ED Vital Signs: Vital Signs - 24 hr 01/06/25 05:54 01/06/25 07:42 01/06/25 07:46 Temperature 97.8 F 97.8 F 97.8 F Pulse Rate 70 69 69 Respiratory Rate 16 15 15 Blood Pressure 107/58 L 98/53 L 98/53 L Pulse Oximetry 95 96 96 Oxygen Delivery Method Room Air Room Air Room Air BMI result Body Mass Index 39.9 Const General: cooperative, awake and tired appearing; No comfortable Nutritional Appearance: well nourished Orientation/consciousness: patient oriented x3 HENMT Head: Yes normal to inspection and Yes atraumatic Ears: hearing grossly normal bilaterally and external ears normal General nose exam: Normal external nose present, no nasal discharge noted and no epistaxis Face and sinus: Yes normal facial exam, No abrasion and No laceration Mouth: no drooling and no muffled voice Eyes General: appearance normal, both eyes and all related structures Periorbital: periorbital findings normal Eyelids: Yes eyelids normal Conjunctivae: conjunctivae normal Pupils: Equal, round and reactive pupils present EOM: EOMs intact bilaterally Neck Neck: Yes normal visual inspection and Yes full ROM Resp Effort & Inspection: normal respiratory effort and able to speak in complete sentences Cardio Rate: regular rate Rhythm: regular rhythm GI Other: surgical scars present to the abdomen colostomy present Skin General skin exam: no rashes or lesions noted Neuro General: patient oriented x3 and moves all extremities Cranial nerves: Yes Equal, round and reactive pupils present Cognition (Neuro): normal cognition Extrem General: Yes normal to inspection, Yes full ROM and Yes capillary refill normal Psych Appearance: grossly normal Mental Status: mental status grossly normal Affect: normal affect Attitude: cooperative Thought process: Normal thought process present Thought content: Normal thought content present Insight: Good insight present (Psych) Medications Administered Discontinued Medications Generic Name Dose Route Start Last Admin Trade Name Corky PRN Reason Stop Dose Admin Diazepam 5 mg 01/06/25 00:16 01/06/25 01:41 Diazepam 10 Mg/2 Ml Cartridge IVPUSH 01/06/25 00:17 5 mg STAT STA Administration Dicyclomine HCl 10 mg 01/06/25 00:16 01/06/25 01:43 Dicyclomine Hcl 10 Mg Capsule PO 01/06/25 00:17 10 mg ONCE ONE Administration Diphenhydramine HCl 50 mg 01/06/25 02:19 01/06/25 02:26 Diphenhydramine Hcl 50 Mg/Ml Vial IVPUSH 10/07/25 02:20 50 mg ONCE ONE Administration Haloperidol Lactate 5 mg 01/06/25 02:19 01/06/25 02:25 Haloperidol Lactate 5 Mg/Ml Vial IVPUSH 01/06/25 02:20 5 mg STAT STA Administration Hydromorphone HCl 1 mg 01/06/25 00:16 01/06/25 01:43 Hydromorphone Hcl 1 Mg/Ml Syringe IVPUSH 01/06/25 00:17 1 mg ONCE ONE Administration Protocol Procedures Procedure Narrative Procedure Narrative: Ultrasound-guided IV 20 gauge 1-3/4 inch IV placed in right upper extremity. Adequate blood return flushes well secured with Tegaderm. Performed by Adalgisa Maddox PA-C Medical Decision Making Medical Decision Making MDM Narrative: Patient is a 44 year old female with a history of occipital neuralgia, depression, anxiety, PTSD, body dysmorphia, agoraphobia, PNES, asthma, chronic abdominal pain/IBS and multiple abdominal surgeries including previous cholecystectomy, hysterectomy, and a colostomy that she states was placed due to her dysmotility/constipation that presents for evaluation of abdominal pain. Patient's physical exam was as noted in the physical exam portion of this note. Patient's blood work was unremarkable. Patient's urine is pending at this time. Patient's stool studies are pending at this time. I did an extensive chart review including reviewing the patient's visits at the [facility] Emergency Department and the [facility] Emergency Departments. In total including todays visit, the patient has been evaluated for her abdominal pain 8 times in the last 35 days. These work ups included a CT abdomen/pelvis on 12/21/2024, abdominal ultrasound on 12/22/2024, an abdominal + chest x-ray on 12/29/2024, and a CT scan of the abdomen/pelvis on 01/04/2025. The above listed imaging was negative for any acute process. I explained my physical exam findings as well as all test results to the patient. I answered all questions asked by the patient. I spoke with the patient about her previous visits and explained that I did not believe additional imaging today would be helpful at this time. The patient agreed and stated she would prefer not to be scanned and just wants something to help with the pain. Patient was ordered IV Valium and Dilaudid as well as PO Bentyl for pain relief. Patient is a difficult IV stick and her getting her medication was significantly delayed. Patient signed out to Dr. Copeland pending medication and re-evaluation. 7:22 AM 01/06/2025 (Dr. La Copeland, D.O.) patient improving after fluids, antiemetics and pain control. Received a dose of Haldol which seemed to help her abdominal pain substantially. She is able to tolerate oral intake and is requesting discharge at this time. Discussed importance of follow up with her acid strength inspector as well as strict return precautions. Discharged home in stable condition. Differential Diagnosis Differential Diagnoses: The differential diagnosis associated with the presentation includes Acute on chronic abdominal pain Abdominal pain Intractable pain Inability to tolerate PO Admission/Observation Consideration of admission/observation: Escalation of care including admission/observation considered Patient's disposition will be determined after medication and re-evaluation. Lab Data [facility] Lab Attestation statement: I reviewed the patient's lab results. My interpretation of these results are in the [facility] Rationale portion of this note. 01/05/25 20:51 01/05/25 20:51 Labs: Lab Results 01/05/25 Range/Units 20:51 WBC 9.2 (4.8-10.8) X10*3/uL RBC 4.81 (4.20-5.50) X10*6/uL Hgb 13.2 (12.0-16.0) g/dl Hct 39.0 (37.0-47.0) % MCV 81.1 (80.0-98.0) fL MCH 27.4 (27.0-33.0) pg MCHC 33.8 (31.0-35.0) g/dl RDW 14.9 (11.0-16.0) % Plt Count 342 (160-400) X10*3/uL MPV 9.6 (9.4-12.3) fL Immature Gran % (Auto) 0.2 (0.0-0.4) % Neut % (Auto) 61.9 (45-73) % Lymph % (Auto) 30.1 (20-40) % Sabine % (Auto) 5.9 (2-11) % Eos % (Auto) 1.4 (0-4) % Baso % (Auto) 0.5 (0-2) % Lymph # (Auto) 2.8 (1.2-4.9) X10*3/uL Sabine # (Auto) 0.5 (0.1-1.2) X10*3/uL Eos # (Auto) 0.1 (0.0-0.4) X10*3/uL Baso # (Auto) 0.1 (0.0-0.2) X10*3/uL Abs Immat Gran (auto) 0.02 (0.00-0.03) X10*3/uL Absolute Neuts (auto) 5.7 (2.0-8.3) x10*3/uL Absolute Nucleated RBC 0.000 (0.0-0.012) X10*3/uL Nucleated RBC % (auto) 0.0 (0.0-0.2) /100WBC Sodium 141 (135-145) mmol/L Potassium 4.1 (3.3-5.1) mmol/L Chloride 110 H (96-108) mmol/L Carbon Dioxide 22 (22-29) mmol/L Anion Gap 13 (12-20) BUN 9 (9-16) mg/dL Creatinine 0.64 (0.5-1.4) mg/dL Estim Creat Clear Calc 129.3 Estimated GFR > 60 Fasting Glucose 93 (60-99) mg/dL Calcium 9.2 (8.4-10.2) mg/dL Magnesium 2.1 (1.6-2.6) mg/dL Total Bilirubin 0.3 (0.0-1.0) mg/dL Direct Bilirubin 0.1 (0.0-0.5) mg/dL AST 27 (5-31) U/L ALT 35 H (0-31) U/L Alkaline Phosphatase 87 (39-117) U/L Total Protein 7.4 (6.5-8.0) g/dL Albumin 4.1 (3.5-5.0) g/dL Lipase 30 (8-78) U/L Beta HCG, Quant < 2 mIU/mL External Record Review External record reviewed: Outside ED record (reviewed the [facility] Emergency Department records from 12/02/2024 and 01/03/2025-01/04/2025) Discharge Plan Discharge Clinical Impression: Acute exacerbation of chronic abdominal pain Patient Disposition: Home, Self-Care Instructions: Gastroparesis (ED) Additional Instructions: Continue to follow up with your acid strength inspector as discussed. Return to the ER with any new or worsening symptoms. Continue to drink your shakes as much as possible to aid in nutrition. Try to force your fluids as much as possible. Prescriptions: No Action metoclopramide HCl 5 mg tablet 5 mg PO Q8H PRN (Reason: nausea and vomiting) Qty: 20 0RF Creon 12,000-38,000 -60,000 unit capsule,delayed release(DR/EC) 1 cap PO QID Qty: 120 0RF Rx Instructions: administer with meals and/or snacks -- MAX OF 4 CAPS PER DAY. sucralfate 1 gram tablet 1 g PO BID Qty: 60 3RF Patient Comments: pt takes with 8 ounces of water 1 hour before her other medications. valacyclovir 500 mg tablet 500 mg PO DAILY Trintellix 20 mg tablet 20 mg PO DAILY lamotrigine 200 mg tablet 200 mg PO DAILY Rx Instructions: 200mg in morning, 25mg at night lamotrigine 25 mg tablet 50 mg PO BEDTIME Rx Instructions: 200mg in morning, 25mg at night docusate sodium [Colace] 100 mg capsule 100 mg PO BID Qty: 60 3RF clonazepam 1 mg tablet,disintegrating 1 mg PO TID pantoprazole 40 mg tablet,delayed release (DR/EC) 40 mg PO DAILY@0630 prucalopride [Motegrity] 2 mg tablet 2 mg PO DAILY magnesium oxide 400 mg magnesium capsule 400 mg PO DAILY promethazine 12.5 mg suppository KS PRN (Reason: Motion Sickness/Allergies) erythromycin ethylsuccinate 200 mg/5 mL Suspension For Reconstitution 400 mg PO Q8H 14 Days Qty: 420 3RF metoclopramide HCl [Reglan] 10 mg tablet 10 mg PO Q6H 7 Days Qty: 28 0RF bisacodyl 5 mg tablet,delayed release (DR/EC) 10 mg PO BEDTIME mirabegron [Myrbetriq] 50 mg tablet extended release 24 hr 50 mg PO DAILY hydrocortisone 2.5 % cream 1 appl topical BID PRN (Reason: pain) Qty: 28 0RF hydroxyzine HCl 25 mg tablet 25 mg PO BEDTIME cholecalciferol (vitamin D3) 125 mcg (5,000 unit) capsule 125 mcg PO DAILY Qty: 90 3RF eszopiclone [Lunesta] 3 mg tablet 3 mg PO BEDTIME ondansetron 4 mg tablet,disintegrating 4 mg PO Q8H PRN (Reason: nausea and vomiting) Qty: 30 1RF esomeprazole magnesium 40 mg capsule,delayed release(DR/EC) 40 mg PO DAILY Qty: 90 5RF Rx Instructions: before meals Interventions: ED Discharge Assessment Last Done: 01/06/25 07:46 Discharge Date/Time: 01/06/25 07:47 Print Language: Irish
--- NOTE | 2025-01-06 01:35 | PC.NURSE ---
Meds delayed d/t no IV access. Pt very difficult stick, requiring ultrasound guided.
[2025-01-06 01:37] VITALS: BP 128/74; PULSE 72; RESP 16; TEMP 36.9; O2SAT 96
[2025-01-06] MEDS: diazePAM 10 MG/2 ML CARTRIDGE 5 MG IVPUSH (01:41)
--- OUTSIDE RECORDS SUMMARY | 2025-01-06 01:56 | XMS_ITS | Clinical Summary ---
Author Organization [employer] [facility] Address [address] [place] [address] Care Team Providers Care Dry Kiln Burner Name Role Phone Nori Posey MD Primary Care Provider [phone] Allergies Active Allergy Reactions Criticality Noted Date Comments [place] 08/30/2023 Medications Medication Sig Dispensed Refills Start [...] age to complete this topic Care Teams Dry Kiln Burner Relationship Specialty Start Date End Date Nori Posey MD [address] [place] [id number] PCP - General Internal Medicine 08/01/23
[2025-01-06 05:54] VITALS: BP 107/58; PULSE 70; RESP 16; TEMP 36.6; O2SAT 95
[2025-01-06 07:42] VITALS: BP 98/53; PULSE 69; RESP 15; TEMP 36.6; O2SAT 96
[2025-01-06 07:46] VITALS: BP 98/53; PULSE 69; RESP 15; TEMP 36.6; O2SAT 96
== END 2025-01-06 07:47 | disposition home or self-care (01) ==
PROVIDERS: Physician Assistant Medical; Emergency Provider Emergency Medicine; PCP Internal Medicine
DX: G89.29 Other chronic pain (principal); R10.9 Unspecified abdominal pain; K59.00 Constipation, unspecified; Z93.3 Colostomy status; Z90.49 Acquired absence of other specified parts of digestive tract; Z90.710 Acquired absence of both cervix and uterus; Z88.5 Allergy status to narcotic agent
CPT/HCPCS: 36410; 36415; 80053; 80076; 82248; 83690; 83735; 84702; 85025; 96374; 96375; 99284; J1171; J1200; J1630; J3360

== ENCOUNTER 2025-01-07 21:04 | Emergency (ER) | payer OTHER, SELFPAY ==
--- NOTE | ~2025-01-07 | XR_ITS ---
CLINICAL HISTORY: rule out aspiration Exam: PA and lateral views of the chest. Comparison: December 21, 2024. Findings: Lungs are well inflated. Cardiac silhouette is within normal limits. Bilateral perihilar interstitial prominence with bronchial wall thickening, [id number]. No dense area of consolidation. No pleural effusion. Impression: Perihilar bronchitis. This document has been electronically signed by: Mario Collado MD on 01/07/2025 22:05:14
[2025-01-07 21:07] VITALS: BP 136/68; PULSE 91; RESP 18; TEMP 36.9; O2SAT 97; BMI 39.4
--- NOTE | 2025-01-07 21:09 | ED.ABDPAIN ---
HPI - Abdominal Pain General Chief Complaint: Abdominal Pain Stated Complaint: gastroparesis Time Seen by Provider: 01/07/25 22:28 History of Present Illness ED Provider: Ta VILLA narrative: if the patient is a 44-year-old woman seems to have a history of problems with gastric motility. She has a history of multiple hospitalizations for gastrointestinal complaints and multiple emergency room visits for the same. She has been hospitalized 3 times in the last month for similar symptoms of abdominal pain, nausea and vomiting. Last month she was found to be positive for norovirus. The patient was most recently discharged from the hospital 1 week ago on January 01 after a 2 day hospitalization. She returned to the hospital the following day on January 02 and then 3 days later on January 05. During these ER visit she was treated and released. She returns today saying that she is having upper abdominal pain across her epigastrium and has been unable to tolerate food and that she has been vomiting. No fevers. Patient says that she has significant gastro intestinal motility problems and that she needs a gastric pacemaker but that her insurance is being slow about approving this procedure. She has a colostomy. She feels her colostomy is functioning. Related Data Home Medications ?Medication ?Instructions ?Recorded ?Confirmed lamotrigine 200 mg tablet 200 mg PO DAILY 01/02/23 12/29/24 valacyclovir 500 mg tablet 500 mg PO DAILY 01/02/23 12/29/24 vortioxetine 20 mg tablet 20 mg PO DAILY 01/02/23 12/29/24 (Trintellix) hydroxyzine HCl 25 mg tablet 25 mg PO BEDTIME 01/08/24 12/29/24 lamotrigine 25 mg tablet 50 mg PO BEDTIME 01/08/24 12/29/24 bisacodyl 5 mg tablet,delayed 10 mg PO BEDTIME 07/25/24 12/29/24 release mirabegron 50 mg tablet,extended 50 mg PO DAILY 07/25/24 12/29/24 release 24 hr (Myrbetriq) eszopiclone 3 mg tablet (Lunesta) 3 mg PO BEDTIME 08/06/24 12/29/24 clonazepam 1 mg disintegrating 1 mg PO TID 12/08/24 12/29/24 tablet pantoprazole 40 mg tablet,delayed 40 mg PO DAILY@0630 12/08/24 12/29/24 release magnesium oxide 400 mg PO DAILY 12/21/24 12/29/24 prucalopride 2 mg tablet 2 mg PO DAILY 12/21/24 12/29/24 (Motegrity) promethazine 12.5 mg rectal mg MO PRN Motion Sickness/Allergies 12/29/24 suppository Previous Rx's ?Medication ?Instructions ?Recorded cholecalciferol (vitamin D3) 125 125 mcg PO DAILY #90 caps 05/30/24 mcg (5,000 unit) capsule docusate sodium 100 mg capsule 100 mg PO BID #60 caps 08/20/24 (Colace) metoclopramide HCl 5 mg tablet 5 mg PO Q8H PRN nausea and 11/13/24 vomiting #20 tabs esomeprazole magnesium 40 mg 40 mg PO DAILY #90 caps 11/24/24 capsule,delayed release ondansetron 4 mg disintegrating 4 mg PO Q8H PRN nausea and 11/24/24 tablet vomiting #30 tabs [id number](pork)12,000-38,000-60,000 1 cap PO QID #120 caps 11/25/24 unit capsule,del rel (Creon) sucralfate 1 gram tablet 1 g PO BID #60 tabs 12/17/24 erythromycin ethylsuccinate 200 400 mg (10 mL) PO Q8H 14 days #420 01/01/25 mg/5 mL oral powder for suspension mL metoclopramide HCl 10 mg tablet 10 mg PO Q6H 7 days #28 tabs 01/01/25 (Reglan) hydrocortisone 2.5 % topical cream 1 appl topical BID PRN pain #28 01/02/25 grams Allergies Allergy/AdvReac Type Severity Reaction Status Date / Time propofol Allergy Intermediate Itching Verified 01/07/25 21:10 morphine Allergy Mild Itching Verified 01/07/25 21:10 Review of Systems Review of Systems Yes all other systems are reviewed and are negative PMFSH Past Medical History Medical History Gastroparesis History of lumbar puncture (06/13/23) Seizures Postprocedural seroma of skin and subcutaneous tissue following other procedure Colostomy in place Hx of flexible sigmoidoscopy (07/26/24) Proctosigmoiditis Stricture of sigmoid colon Colon wall thickening Obesity, Class II, BMI 35-39.9 IBS (irritable bowel syndrome) History of colitis Gastric ulcer Interstitial cystitis Occipital neuralgia of right side History of suicidal ideation Anxiety Agoraphobia MDD (major depressive disorder) PTSD (post-traumatic stress disorder) Surgical History Hx of History of colon surgery (08/12/24) History of tonsillectomy and adenoidectomy Hx of appendectomy H/O endoscopy (12/09/24) Hx of colonoscopy Hx of section H/O: hysterectomy Hx of cholecystectomy (~12/2022) Family History Family History Father Prostate cancer Maternal Uncle Colon cancer Maternal Grandmother Breast cancer Social History Social History Household Members: Spouse Housing: House Do you presently have visiting nurse or other home services: No Alcohol intake: never 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 Patient Tobacco Use Status: Former Tobacco user Smoked in Last 30 Days: No e-Cigarette/Vaping Use: Never Used Second Hand Smoke Exposure: No Use of substances other than those prescribed or required for medical reasons: Yes Substance Use Type: Marijuana Advance Directives: No Advance Directives Information Provided: No Do you have a plan to hurt others: No Plan Patient : No service: No Physical Exam ED Vital Signs: Vital Signs - 24 hr 01/07/25 23:52 01/07/25 23:54 01/08/25 00:48 Temperature 98.4 F Pulse Rate 82 Respiratory Rate 17 19 Blood Pressure 128/70 Pulse Oximetry 98 Oxygen Delivery Method Room Air 01/08/25 05:55 01/08/25 07:51 Temperature 97.9 F 97.9 F Pulse Rate 78 78 Respiratory Rate 16 Blood Pressure 110/63 110/63 Pulse Oximetry 97 97 Oxygen Delivery Method Room Air Room Air BMI result Body Mass Index 39.4 Const Other: The patient is a chronically ill, poorly come 44-year-old who was awake and alert and says that she is very uncomfortable. HENMT Other: The face is symmetrical. Mucous membranes moist. Eyes Other: Pupils are round equal, conjunctivae are clear, extraocular movements intact Neck Neck: Yes full ROM Resp Effort & Inspection: normal respiratory effort Auscultation: clear to auscultation bilaterally Cardio Rate: regular rate Rhythm: regular rhythm Heart sounds: S1 normal heart sound present and S2 normal heart sound present GI Other: The patient is tender across her upper abdomen. Primarily in the epigastrium. Skin Other: Skin is pale and dry Neuro Other: the patient is awake and alert. Mental status seemed clear. Cranial nerves are intact. She was her extremities symmetrically and appropriately. No focal deficit. Extrem Other: The patient reports tenderness along the anterior aspect of the left lower leg. Otherwise there is no apparent abnormality. There is no asymmetry. No pitting edema. The calves seem symmetrical and nontender. Procedures Procedure Narrative Procedure Narrative: Ultrasound-guided IV 20 gauge 1-3/4 inch IV placed in right upper extremity. Adequate blood return, flushes well secured with Tegaderm, performed by Adalgisa Maddox PA-C Course Course Course Narrative: This is a RME preformed in triage by Shannon Ruiz PA-C. Date: 01/07/2025, time 910 pm. Patient presents with worsening gastroparesis. History of occipital neuralgia, depression, anxiety, PTSD, body dysmorphia, agoraphobia, PNES, asthma, chronic abdominal pain/IBS and multiple abdominal surgeries including previous cholecystectomy, hysterectomy, and a colostomy that she states was placed due to her dysmotility/constipation that presents for evaluation of inability to tolerate fluids (jimmie her Ensures). Voided last this morning. Seen here 2 days ago, haldol helped and she was able to discharged home. She was seen at [facility] for same issues just prior on 01/03 and 01/04. Took at home zofran, carafate, azithromycin( I do not see on med list), unclear to as why she is on this- and suppository. Here for intractable pain today. Work UP: abd labs and CXR (rule out aspiration) Will defer full ROS and PE to treating provider. Patient will continued to be monitored in the interim. Medical Decision Making Medical Decision Making [facility] Narrative: The patient is a 44-year-old with an apparent history of a motility disorder which causes her to have a great deal of symptoms and frequent trips to the hospital. She does not seem toxic or septic today. Her vital signs are unremarkable. She has a normal white count of 8.4 with a normal differential. Her chemistries are unremarkable. No evidence of a significant metabolic derangement. Her urinalysis is normal with no ketones. Given these results my suspicion for any acutely dangerous complication of her chronic condition is very low. She was treated symptomatically and kept in the emergency room for several hours. She was given hydromorphone as well as at 1st droperidol and later haloperidol and diphenhydramine. She was given IV fluids. Ultimately she fell asleep for several hours. 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 At that point she was discharged. Lab Data 01/07/25 21:31 01/07/25 21:31 Labs: Lab Results 01/07/25 01/08/25 Range/Units 21: 00:50 WBC 8.4 (4.8-10.8) X10*3/uL RBC 4.60 (4.20-5.50) X10*6/uL Hgb 12.5 (12.0-16.0) g/dl Hct 37.3 (37.0-47.0) % MCV 81.1 (80.0-98.0) fL MCH 27.2 (27.0-33.0) pg MCHC 33.5 (31.0-35.0) g/dl RDW 14.3 (11.0-16.0) % Plt Count 342 (160-400) X10*3/uL MPV 9.9 (9.4-12.3) fL Immature Gran % (Auto) 0.2 (0.0-0.4) % Neut % (Auto) 64.4 (45-73) % Lymph % (Auto) 29.1 (20-40) % [place] % (Auto) 5.0 (2-11) % Eos % (Auto) 1.1 (0-4) % Baso % (Auto) 0.2 (0-2) % Lymph # (Auto) 2.4 (1.2-4.9) X10*3/uL [place] # (Auto) 0.4 (0.1-1.2) X10*3/uL Eos # (Auto) 0.1 (0.0-0.4) X10*3/uL Baso # (Auto) 0.0 (0.0-0.2) X10*3/uL Abs Immat Gran (auto) 0.02 (0.00-0.03) X10*3/uL Absolute Neuts (auto) 5.4 (2.0-8.3) x10*3/uL Absolute Nucleated RBC 0.000 (0.0-0.012) X10*3/uL Nucleated RBC % (auto) 0.0 (0.0-0.2) /100WBC ESR 35 H (0-20) MM/HR Sodium 139 (135-145) mmol/L Potassium 4.0 (3.3-5.1) mmol/L Chloride 107 (96-108) mmol/L Carbon Dioxide 22 (22-29) mmol/L Anion Gap 14 (12-20) BUN 11 (9-16) mg/dL Creatinine 0.67 (0.5-1.4) mg/dL Estim Creat Clear Calc 122.6 Estimated GFR > 60 Random Glucose 108 (60-115) mg/dL Calcium 9.4 (8.4-10.2) mg/dL Magnesium 2.2 (1.6-2.6) mg/dL Total Bilirubin 0.3 (0.0-1.0) mg/dL AST 24 (5-31) U/L ALT 28 (0-31) U/L Alkaline Phosphatase 104 (39-117) U/L C-Reactive Protein 2.98 H (< or = 0.50) mg/dL C-React Prot High Sens Cancelled Total Protein 7.9 (6.5-8.0) g/dL Albumin 4.4 (3.5-5.0) g/dL Lipase 30 (8-78) U/L Beta HCG, Quant < 2 mIU/mL Urine Color Yellow Urine Appearance Clear Urine pH 7.0 (5.0-9.0) Ur Specific [place] 1.015 (1.005-1.025) Urine Protein Negative (Neg-Trace) mg/dL Urine Glucose (UA) Negative (Negative) mg/dL Urine Ketones Negative (Negative) mg/dL Urine Blood Negative (Negative) Urine Nitrite Negative (Negative) Ur Leukocyte Esterase Negative (Negative) Urine RBC 0-2 (0-2) /HPF Urine WBC 0-5 (0-5) /HPF Ur Squamous Epith Cells 0-2 (0-2) /HPF Urine Bacteria Trace (None Seen) Hyaline Casts 0-2 (0-2) /LPF Medications Administered Discontinued Medications Generic Name Dose Route Start Last Admin Trade Name Corky PRN Reason Stop Dose Admin Diphenhydramine HCl 50 mg 01/08/25 00:34 01/08/25 00:48 Diphenhydramine Hcl 50 Mg/Ml Vial IVPUSH 01/08/25 00:35 50 mg ONCE ONE Administration Diphenhydramine HCl 12.5 mg 01/08/25 06:38 01/08/25 06:50 Diphenhydramine Hcl 50 Mg/Ml Vial IVPUSH 01/08/25 06:39 12.5 mg ONCE ONE Administration Droperidol 2.5 mg 01/07/25 23:03 01/07/25 23:54 Droperidol 5 Mg/2 Ml Vial IVPUSH 01/07/25 23:04 2.5 mg ONCE ONE Administration Haloperidol Lactate 5 mg 01/08/25 00:38 01/08/25 00:48 Haloperidol Lactate 5 Mg/Ml Vial IVPUSH 01/08/25 00:39 5 mg ONCE ONE Administration Hydromorphone HCl 1 mg 01/07/25 23:03 01/07/25 23:54 Hydromorphone Hcl 1 Mg/Ml Syringe IVPUSH 01/07/25 23:04 1 mg ONCE ONE Administration Protocol Hydromorphone HCl 1 mg 01/08/25 00:34 01/08/25 00:48 Hydromorphone Hcl 1 Mg/Ml Syringe IVPUSH 01/08/25 00:35 1 mg ONCE ONE Administration Protocol Metoclopramide HCl 10 mg 01/08/25 06:38 01/08/25 06:50 Metoclopramide Hcl 10 Mg/2 Ml Vial IVPUSH 01/08/25 06:39 10 mg ONCE ONE Administration Discharge Plan Discharge Clinical Impression: Upper abdominal pain, Vomiting, Gastroparesis Patient Disposition: Home, Self-Care Additional Instructions: Your testing today seems very reassuring. Please continue your current medications. Please follow up with the gastroenterology office. Call them later today to see if you can get an earlier appointment than you are currently scheduled. Also follow up with your regular doctor's office. Return to the emergency room if significantly worse. Prescriptions: No Action metoclopramide HCl 5 mg tablet 5 mg PO Q8H PRN (Reason: nausea and vomiting) Qty: 20 0RF Creon 12,000-38,000 -60,000 unit capsule,delayed release(DR/EC) 1 cap PO QID Qty: 120 0RF Rx Instructions: administer with meals and/or snacks -- MAX OF 4 CAPS PER DAY. sucralfate 1 gram tablet 1 g PO BID Qty: 60 3RF Patient Comments: pt takes with 8 ounces of water 1 hour before her other medications. valacyclovir 500 mg tablet 500 mg PO DAILY Trintellix 20 mg tablet 20 mg PO DAILY lamotrigine 200 mg tablet 200 mg PO DAILY Rx Instructions: 200mg in morning, 25mg at night lamotrigine 25 mg tablet 50 mg PO BEDTIME Rx Instructions: 200mg in morning, 25mg at night docusate sodium [Colace] 100 mg capsule 100 mg PO BID Qty: 60 3RF clonazepam 1 mg tablet,disintegrating 1 mg PO TID pantoprazole 40 mg tablet,delayed release (DR/EC) 40 mg PO DAILY@0630 prucalopride [Motegrity] 2 mg tablet 2 mg PO DAILY magnesium oxide 400 mg magnesium capsule 400 mg PO DAILY promethazine 12.5 mg suppository MO PRN (Reason: Motion Sickness/Allergies) erythromycin ethylsuccinate 200 mg/5 mL Suspension For Reconstitution 400 mg PO Q8H 14 Days Qty: 420 3RF metoclopramide HCl [Reglan] 10 mg tablet 10 mg PO Q6H 7 Days Qty: 28 0RF bisacodyl 5 mg tablet,delayed release (DR/EC) 10 mg PO BEDTIME mirabegron [Myrbetriq] 50 mg tablet extended release 24 hr 50 mg PO DAILY hydrocortisone 2.5 % cream 1 appl topical BID PRN (Reason: pain) Qty: 28 0RF hydroxyzine HCl 25 mg tablet 25 mg PO BEDTIME cholecalciferol (vitamin D3) 125 mcg (5,000 unit) capsule 125 mcg PO DAILY Qty: 90 3RF eszopiclone [Lunesta] 3 mg tablet 3 mg PO BEDTIME ondansetron 4 mg tablet,disintegrating 4 mg PO Q8H PRN (Reason: nausea and vomiting) Qty: 30 1RF esomeprazole magnesium 40 mg capsule,delayed release(DR/EC) 40 mg PO DAILY Qty: 90 5RF Rx Instructions: before meals Referrals: [facility] [Provider Group, Gastro[facility]] Ismael Gary DO [Physician, Family Practice] Interventions: ED Discharge Assessment Last Done: 01/08/25 07:51 Discharge Date/Time: 01/08/25 07:51 Print Language: [place] Islander
[2025-01-07 21:45] LABS: MANUAL DIFF FLAG NO
[2025-01-07 21:46] LABS: Hematocrit 37.3 % (37.0-47.0); Hemoglobin 12.5 g/dl (12.0-16.0); Imm Gran Abs Auto 0.02 X10*3/uL (0.00-0.03); Imm Gran Pct Auto 0.2 % (0.0-0.4); Lymphocytes Absolute Auto 2.4 X10*3/uL (1.2-4.9); Mean Corpuscular HGB Conc 33.5 g/dl (31.0-35.0); Mean Corpuscular Hemoglobin 27.2 pg (27.0-33.0); Mean Corpuscular Volume 81.1 fL (80.0-98.0); NRBC Abs Auto 0.000 X10*3/uL (0.0-0.012); NRBC Pct Auto 0.0 /100WBC (0.0-0.2); Platelet Count 342 X10*3/uL (160-400); Red Blood Count 4.60 X10*6/uL (4.20-5.50); White Blood Count 8.4 X10*3/uL (4.8-10.8)
[2025-01-07 22:07] LABS: Alanine Aminotransferase 28 U/L (0-31); Albumin Level 4.4 g/dL (3.5-5.0); Alkaline Phosphatase 104 U/L (39-117); Anion Gap 14 (12-20); Aspartate Amino Transferase 24 U/L (5-31); Blood Urea Nitrogen 11 mg/dL (9-16); Calcium 9.4 mg/dL (8.4-10.2); Carbon Dioxide 22 mmol/L (22-29); Chloride 107 mmol/L (96-108); Creatinine Clr Calc Pharmacy 122.6; Estimated Glomerular Filt Rate > 60; Lipase 30 U/L (8-78); Magnesium 2.2 mg/dL (1.6-2.6); Potassium 4.0 mmol/L (3.3-5.1); Sodium 139 mmol/L (135-145); Total Protein 7.9 g/dL (6.5-8.0)
--- NOTE | 2025-01-07 23:34 | PC.NURSE ---
pt hard stick for IV access. Tasha RN at bedside and attempted x3 with unsuccessful attempts. MARYELLEN Maddox at bedside with pt to attempt access at this time
[2025-01-07 23:52] VITALS: BP 128/70; PULSE 82; TEMP 36.9; O2SAT 98
[2025-01-07 23:54] VITALS: RESP 17
--- NOTE | 2025-01-07 23:56 | PC.NURSE ---
MARYELLEN Maddox at bedside, 20G Long peripheral iv placed. pt medicated per mar at this time
[2025-01-08 00:48] VITALS: RESP 19
--- NOTE | 2025-01-08 00:53 | PC.NURSE ---
pt able to urinate at bedside commode. urine sample obtained and sent to lab. pt medicated per may for increased pain
[2025-01-08 00:57] LABS: Appearance Urine Clear; Glucose Urine UA Negative (Negative); PH 7.0 (5.0-9.0); Specific Gravity - Urine 1.015 (1.005-1.025)
[2025-01-08 05:55] VITALS: BP 110/63; PULSE 78; TEMP 36.6; O2SAT 97
[2025-01-08 07:51] VITALS: BP 110/63; PULSE 78; RESP 16; TEMP 36.6; O2SAT 97
== END 2025-01-08 07:51 | disposition home or self-care (01) ==
PROVIDERS: Physician Assistant Medical; Emergency Provider Emergency Medicine
DX: K31.84 Gastroparesis (principal); R11.10 Vomiting, unspecified; R10.9 Unspecified abdominal pain; K58.9 Irritable bowel syndrome, unspecified; F43.10 Post-traumatic stress disorder, unspecified; Z87.19 Personal history of other diseases of the digestive system; Z79.899 Other long term (current) drug therapy
CPT/HCPCS: 36415; 71046; 80053; 81001; 83690; 83735; 84702; 85025; 85652; 86140; 86141; 96374; 96375; 96376; 99284; J1171; J1200; J1630; J1790; J2765

== ENCOUNTER → 2025-01-07 21:17 | Outpatient (BNV) | payer OTHER, SELFPAY | PROVIDERS: Emergency Provider Emergency Medicine; Visit Provider Radiology Diagnostic Radiology | DX: J40 Bronchitis, not specified as acute or chronic (principal) | CPT/HCPCS: 71046 ==

== ENCOUNTER 2025-01-25 14:58 | Emergency (ER) | payer OTHER, SELFPAY ==
--- OUTSIDE RECORDS SUMMARY | 2024-01-02 10:45 | XMS_ITS | Encounter Summary ---
Author Organization [employer] Address [address] [place] [address] Care Team Providers Care Inspector Wire Products Name Role Phone Nori Posey MD Primary Care Provider +1 [phone] Encounter Details Date Type Department Care Team (Late st Contact Info) Description 01/02/2024 10:45 AM EDT Hospital Encounter TH HISTORIC ENCOUNTERS EASTERN CONVERSION ONLY Yossi Marina MD 175 [place] [address] Social History Tobacco Use Types Packs/Day Years [...] 3:17 PM EDT Nadia Wolfe RN * [place] Suicide Severity Rating Scale (Screener/Recent Self-Report) Question Answer Date of Assessment Author 1. Wish to be (Past 1 Month) No 025 3:17 PM EDT Nadia Wolfe RN 2. Non-Specific Active Suici ben Thoughts (Past 1 Month) No 09/19/2024 3:17 PM EDT Nadia Wolfe RN 6. Suicidal Behavior (Lifetime) No 5 3:17 PM EDT Nadia Wofle RN documented as of this encounter Progress [...] home since Sunday. Still has a black [place] in visual field of L eye. Still [...] ambulation ?? 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 for a second opinion Today we placed a referral to neurology for a second opinion possible referral to functional neurology in [facility] White matter lesion: Will repeat MRI brain [...] of weeks -Continue home health PT, OT, JOB COACHING -Continue with psychiatry for care of behavioral [...] 40 minutes. The majority of the actual zlga-kf-vcsd visit was spent counseling the patient with respect to the current neurological picture. Yossi Marina MD documented in this encounter Plan of Treatment Upcoming Encounters Date Type Department Care Team (Late st Contact Info) Description 03/24/2025 11:30 AM EST Office Visit Internal Medicine - [address] [place] [phone] Janet Harding MD [address] [place] [address] 03/31/2025 11:00 AM EST Office Visit [facility] [address] [place] [phone] Rocío Watkins PA [address] [place] [address] documented as of this encounter Visit Diagnoses Not on filedocumented in this encounter Care Teams Inspector Wire Products Relationship Specialty Start Date End Date Nori Posey MD PCP - General 01/30/23 04/22/24 documented as of this encounter
--- OUTSIDE RECORDS SUMMARY | 2025-01-21 10:30 | XMS_ITS | Encounter Summary ---
Author Organization [facility] Address [address] [place] [address] Care Team Providers Care Aerospace Technician Name Role Phone Janet Harding MD Primary Care Provider [phone] Reason for Visit * Reason Comments Hospital Follow-up Encounter Details Date Type Department Care Team (Late st Contact Info) Description 01/21/2025 10:30 AM EDT Office Visit Internal Medicine - [address] [phone] Duy Lund NP [address] [place] [id number] Hospital discharge follow-up (Primary Dx) Social History Tobacco Use Types [...] Sign Reading Time Taken Comments Blood Pressure 114/88 01/21/2025 10:16 AM EDT au to Pulse 86 01/21/2025 10:16 AM EDT Temperature - - Respiratory Rate - - Oxygen Saturation - - Inhaled Oxygen Concentration - - Weight 99.6 kg (219 lb 9.6 oz) 01/21/2025 10:16 AM EDT Height 160 cm (5' 3 ) 01/21/2025 10:16 AM EDT Body Mass Index 38.9 01/21/2025 10:16 AM EDT documented in this encounter Progress Notes * Duy Lund NP - 01/21/2025 10:30 AM EDT CHIEF COMPLAINT: Hospital Follow-up had concerns including Hospital Follow-up. IDENTIFIER: Paula Simmons is a 44 y.o. old female is accompanied by her HPI: Paula Simmons is a 44 y.o. old female presents to the office for evaluation of Hospital Follow-up had concerns including Hospital Follow-up. The patient was evaluated at [facility] on 01/09/2025 for gastrointestinal symptoms, including abdominal discomfort, nausea, and vomiting. She has a known history of gastroparesis, initially managed at [facility]. She was referred to [facility] for further assessment of possible motility dysfunction. A CT scan of the abdomen and pelvis was performed, and her ostomy wasnoted to be in place with good output. The ostomy was previously placed for what was described as IBS with alternating constipation and diarrhea. Today, the patient expresses frustration due to the lack of a definitive diagnosis for her symptoms, which have persisted for the past three years. She continues to experience nausea and relies on a walker for ambulation. She reports ongoing difficulty tolerating oral intake, including nutritional s upplements like Ensure, and mentions a plan for G-tube placement. She left the hospital yesterday against medical advice (AMA), stating she did not wish to continue inpatient evaluation for gastroparesis. The patient follows with neurology and has been diagnosed with small fiber neuropathy, though she is unclear about the underlying cause, which contributes to her distress. She also follows with gastroenterology and neurology at [facility] and has upcoming appointments scheduled. She expresses satisfaction with her current gastroenterology team at [facility] and wishes to continue following their recommendations. Her last seizure episode occurred approximately six months ago. She has a history of anxiety and depression and is under the care of a psychiatrist for ongoing management of these conditions and related medications. ROS: See HPI PAST MEDICAL HISTORY: Patient Active Problem List Diagnosis Date Noted Colostomy in place ([facility] V24, [facility] V28) 11/25/2024 Class 1 obesity 11/24/2024 Internal hemorrhoid 11/24/2024 Irritable bowel syndrome 11/24/2024 Obstructive sleep apnea syndrome 11/24/2024 Agoraphobia with panic disorder 03/06/2022 Alopecia (capitis) totalis 03/06/2022 Body dysmorphic disorder 03/06/2022 History of suicidal behavior 03/06/2022 HSV-2 (herpes simplex virus 2) infection 03/06/2022 Major depressive disorder 03/06/2022 Migraine 03/06/2022 PTSD (post-traumatic stress disorder) 03/06/2022 ACTIVE MEDICATIONS: Medications Taking[1] ALLERGIES: @ALL@ PHYSICAL EXAM: Visit Vitals BP 114/88 Comment: auto Pulse 86 Ht 1.6 m (63 ) Wt 99.6 kg (219 lb 9.6 oz) BMI 38.90 kg/m?? OB Status Hysterectomy Smoking Status Never BSA 2.01 m?? APPEARANCE: Alert and in no acute distress HEART: RRR with normal S1 and S2, no murmurs, no gallops, no JVD appreciated LUNG: clear to auscultation EXTREMITIES: Extremities warm and well perfused without clubbing, cyanosis, or edema LABS: @LASTDATALABS@ IMPRESSION: 1. Hospital discharge follow-up Assessment and Plan This is my first appointment with this patient 1. Gastroparesis and GI Symptoms: - Patient has a history of gastroparesis, previously managed at [facility] and more recently evaluated at [facility] for persistent abdominal discomfort, nausea, and vomiting. - Ostomy in place with good output; CT abdomen/pelvis performed during recent ED visit. - Continues to experience significant nausea and poor tolerance of oral intake, including nutritional supplements (e.g., Ensure). - Gastroenterology has recommended: - Pain management via possible celiac plexus block. - Continued follow-up with the motility team at [facility]. - Plan for G-tube placement under consideration. - Patient left hospital AMA due to frustration with prolonged evaluation and lack of definitive diagnosis. - Plan: - Encourage continued follow-up with gastroenterology at [facility] and [facility]. 2. Small Fiber Neuropathy: - Neurology evaluation has ruled out MS and EMG/NCS were negative. - Despite these findings, a diagnosis of small fiber neuropathy has been suggested. - Patient remains frustrated due to lack of clarity regarding etiology. - Plan: - Continue neurology follow-up. - Supportive care and symptom management as guided by neurology. 3. Seizure Disorder: - Last reported seizure episode was approximately 6 months ago. - Plan: - Continue current seizure management regimen under surveillance of neurologist - Monitor for recurrence and ensure neurologist is aware of any changes. 4. Anxiety and Depression: - Patient has a history of anxiety and depression. - Currently under psychiatric care and managing related medications. - Plan: - Continue psychiatric follow-up. - Monitor mood and coping, especially in light of ongoing medical frustrations. 5. Medications: - No changes made to current medications. - Most medications are managed by specialists (zipper sewing machine operator, neurologist, psychiatrist). - Plan: - Continue current medication regimen as prescribed by specialists. - Coordinate care and ensure communication among providers. Has already scheduled follow-up No orders of the defined types were placed in this encounter. ADDITIONAL ORDERS: None Today's documentation was made using voice recognition software.This note may contain grammatical errors secondary to this software. Duy Lund NP on 01/21/2025 at 5:19 PM EDT I spent 45 minutes of this appointment on reviewing the chart, test results, Hospital note, obtaining history, performing a medically appropriate examination and evaluation, documenting clinical information in the electronic health record, and communicating results to thepatient. [1] Outpatient Medications Marked as Taking for the 01/21/25 encounter (Office Visit) with Duy Lund NP Medication Sig Dispense Refill Apriso 0.375 gram 24 hr capsule bisacodyL (DULCOLAX) 5 mg EC tablet Take 2 tabs by mouth right before beginning bowel prep. Follow instructions given by office for timing. Cholestyramine Light 4 gram powder MIX 4 GRAMS WITH LIQUID AND DRINK FOUR TIMES A DAY BEFORE MEALS AND BEFORE BEDTIME. DO NOT TAKE ANY MEDS LESS THAN 1 HOUR BEFORE AND 4-6 H clonazePAM (KlonoPIN) 1 mg tablet Take 1 Tablet by mouth 3 times daily. cyanocobalamin (VITAMIN B-12) 100 mcg tablet Take 1 tablet (100 mcg total) by mouth 1 (one) time each day. docusate sodium (COLACE) 100 mg capsule esomeprazole (NexIUM) [address] capsule Take 1 capsule (40 mg total) by mouth 1 (one) time each day before breakfast. Do not open capsule. eszopiclone (LUNESTA) 3 mg tablet Take 1 tablet (3 mg total) by mouth at bedtime. Max Daily Amount:3 mg famotidine (PEPCID) 20 mg tablet TAKE 1 TABLET BY MOUTH TWICE A DAY 180 tablet 0 fluticasone propionate (FLONASE) 50 mcg/actuation nasal spray Administer into each nostril. by Nasal route. - Nasal HYDROmorphone (DILAUDID) 2 mg tablet hydrOXYzine HCL (ATARAX) 10 mg tablet Take by mouth. lactulose (CHRONULAC) solution lamoTRIgine (LaMICtal) 200 mg tablet Take 250 mg by mouth daily. magnesium citrate solution Take by mouth 1 (one) time. magnesium oxide 400 mg magnesium capsule Take 1 capsule by mouth 1 (one) time each day. magnesium, amino acid chelate, 133 mg tablet Take 1 tablet (133 mg total) by mouth 2 (two) times a day. metoclopramide (REGLAN) 5 mg tablet take 1 tablet orally every 8 hours as needed for nausea and vomiting mirabegron (MYRBETRIQ) 50 mg 24 hr tablet Take 1 tablet (50 mg total) by mouth 1 (one) time each day. ondansetron ODT (ZOFRAN-ODT) 4 mg disintegrating tablet Take 1 Tablet by mouth every 8 hours as needed for Nausea. pantoprazole (PROTONIX) 40 mg EC tablet TAKE 1 TABLET BY MOUTH IN THE MORNING ON EMPTY STMACH 30 MINUTES BEFORE A MEAL 90 tablet 3 sucralfate (CARAFATE) 1 gram tablet Take 1 tablet (1 g total) by mouth. valACYclovir (VALTREX) 500 mg tablet TAKE 1 TABLET BY MOUTH EVERY DAY Vitamin D3 50 mcg (2,000 unit) capsule Take 1 capsule (2,000 Units total) by mouth 1 (one) time each day. documented in this encounter Plan of Treatment Upcoming Encounters Date Type Department Care Team (Late st Contact Info) Description 03/24/2025 11:30 AM EST Office Visit Internal Medicine - [address] [place] [id number] Janet Harding MD [address], [place] 03/31/2025 11:00 AM EST Office Visit [facility] [place] [address] [facility] [address] [place] [id number] Rocío Watkins PA [address] [facility] [address] [place] [address] documented as of this encounter Visit Diagnoses Diagnosis Hospital discharge follow-up- Primary Other follow-up examination documented in this encounter Discontinued Medications Medication Sig Discontinue Reason Start Date End Da te calcitrioL (ROCALTROL) 0.25 mcg capsule Take by mouth 1 (one) time each day. Patient Discharge 01/21/2025 tamsulosin (FLOMAX) 0.4 mg 24 hr capsule Take 1 capsule (0.4 mg total) by mouth. at bedtime Patient Discharge 05/23/2024 01/21/2025 zolpidem tartrate (AMBIEN ORAL) Take 10 mg by mouth at bedtime. - Oral Patient Discharge 01/21/2025 vortioxetine (TRINTELLIX) 20 mg tablet Take by mouth daily. Patient Discharge 01/21/2025 traMADoL (Ultram) 50 mg tablet Take 1 Tablet by mouth 4 times daily. Patient Discharge 01/21/2025 senna 8.6 mg tablet TAKE TWO TABLETS BY MOUTH EVERY DAY AT BEDTIME NEEDED FOR CONSTIPATION Patient Discharge 07/25/2024 01/21/2025 polyethylene glycol (PEG) 17 gram/dose oral powder Patient Discharge 08/20/2024 01/21/2025 documented as of this encounter Care Teams Aerospace Technician Relationship Specialty Start Date End Date Janet Harding MD [address], [place] PCP - General Internal Medicine 08/04/24 documented as of this encounter
[2025-01-25 15:28] VITALS: BP 121/58; PULSE 101; RESP 18; TEMP 36.7; O2SAT 99; BMI 38.4
--- NOTE | 2025-01-25 15:34 | ED.ABDPAIN ---
HPI - Abdominal Pain General Chief Complaint: Abdominal Pain Stated Complaint: gastroparesis Related Data Home Medications ?Medication ?Instructions ?Recorded ?Confirmed lamotrigine 200 mg tablet 200 mg PO DAILY 01/02/23 12/29/24 valacyclovir 500 mg tablet 500 mg PO DAILY 01/02/23 12/29/24 vortioxetine 20 mg tablet 20 mg PO DAILY 01/02/23 12/29/24 (Trintellix) hydroxyzine HCl 25 mg tablet 25 mg PO BEDTIME 01/08/24 12/29/24 lamotrigine 25 mg tablet 50 mg PO BEDTIME 01/08/24 12/29/24 bisacodyl 5 mg tablet,delayed 10 mg PO BEDTIME 07/25/24 12/29/24 release mirabegron 50 mg tablet,extended 50 mg PO DAILY 07/25/24 12/29/24 release 24 hr (Myrbetriq) eszopiclone 3 mg tablet (Lunesta) 3 mg PO BEDTIME 08/06/24 12/29/24 clonazepam 1 mg disintegrating 1 mg PO TID 12/08/24 12/29/24 tablet pantoprazole 40 mg tablet,delayed 40 mg PO DAILY@0630 12/08/24 12/29/24 release magnesium oxide 400 mg PO DAILY 12/21/24 12/29/24 prucalopride 2 mg tablet 2 mg PO DAILY 12/21/24 12/29/24 (Motegrity) promethazine 12.5 mg rectal mg [place] PRN Motion Sickness/Allergies 12/29/24 suppository famotidine 20 mg tablet 20 mg PO BID 01/28/25 Previous Rx's ?Medication ?Instructions ?Recorded cholecalciferol (vitamin D3) 125 125 mcg PO DAILY #90 caps 05/30/24 mcg (5,000 unit) capsule docusate sodium 100 mg capsule 100 mg PO BID #60 caps 08/20/24 (Colace) metoclopramide HCl 5 mg tablet 5 mg PO Q8H PRN nausea and 11/13/24 vomiting #20 tabs erythromycin ethylsuccinate 200 400 mg (10 mL) PO Q8H 14 days #420 01/01/25 mg/5 mL oral powder for suspension mL metoclopramide HCl 10 mg tablet 10 mg PO Q6H 7 days #28 tabs 01/01/25 (Reglan) hydrocortisone 2.5 % topical cream 1 appl topical BID PRN pain #28 01/02/25 grams hkaaih-szdzcdhk-jglyztt(pork)12,000-38,000-60,000 1 cap PO QID #120 caps 01/27/25 unit capsule,del rel (Creon) ondansetron 4 mg disintegrating 4 mg PO Q8H PRN nausea and 01/27/25 tablet vomiting #30 tabs oxycodone 10 mg tablet 10 mg PO Q8H PRN severe pain 01/27/25 (scale score 7-10) #12 tabs sucralfate 1 gram tablet 1 g PO TID #90 tabs 01/28/25 Allergies Allergy/AdvReac Type Severity Reaction Status Date / Time propofol Allergy Intermediate Itching Verified 01/28/25 14:32 morphine Allergy Mild Itching Verified 01/28/25 14:32 PMFSH Past Medical History Medical History Gastroparesis History of lumbar puncture (06/13/23) Seizures Postprocedural seroma of skin and subcutaneous tissue following other procedure Colostomy in place Hx of flexible sigmoidoscopy (07/26/24) Proctosigmoiditis Stricture of sigmoid colon Colon wall thickening Obesity, Class II, BMI 35-39.9 IBS (irritable bowel syndrome) History of colitis Gastric ulcer Interstitial cystitis Occipital neuralgia of right side History of suicidal ideation Anxiety Agoraphobia MDD (major depressive disorder) PTSD (post-traumatic stress disorder) Surgical History Hx of History of colon surgery (08/12/24) History of tonsillectomy and adenoidectomy Hx of appendectomy H/O endoscopy (12/09/24) Hx of colonoscopy Hx of section H/O: hysterectomy Hx of cholecystectomy (~12/2022) Family History Family History Father Prostate cancer Maternal Uncle Colon cancer Maternal Grandmother Breast cancer Social History Social History Household Members: Spouse Housing: House Do you presently have visiting nurse or other home services: No Alcohol intake: never 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 Patient Tobacco Use Status: Former Tobacco user e-Cigarette/Vaping Use: Never Used Second Hand Smoke Exposure: No Substance Use Type: Marijuana Advance Directives Date on File: 01/25/25 service: No Physical Exam ED Vital Signs: BMI result Body Mass Index 38.4 Course Course Course Narrative: Salome Nolan ART DEALER 01/25 6179 This is a rapid medical exam. Deferred additional HPI, ROS, PE to primary provider. 44 yo female with PMH of gastroporesis here with diffuse abdominal pain with swelling, nausea, vomiting, weakness. Was admitted to [facility] x 2 weeks for similar symptoms and left AMA on Sunday Will obtain labs, UA VSS Medical Decision Making Lab Data 01/25/25 15:53 01/25/25 15:53 Labs: Lab Results 01/25/25 01/25/25 Range/Units 15:53 15:54 WBC 5.7 (4.8-10.8) X10*3/uL RBC 4.90 (4.20-5.50) X10*6/uL Hgb 13.1 (12.0-16.0) g/dl Hct 40.2 (37.0-47.0) % MCV 82.0 (80.0-98.0) fL MCH 26.7 L (27.0-33.0) pg MCHC 32.6 (31.0-35.0) g/dl RDW 14.5 (11.0-16.0) % Plt Count 366 (160-400) X10*3/uL MPV 10.0 (9.4-12.3) fL Immature Gran % (Auto) 0.2 (0.0-0.4) % Neut % (Auto) 37.6 L (45-73) % Lymph % (Auto) 47.9 H (20-40) % [place] % (Auto) 8.5 (2-11) % Eos % (Auto) 5.1 H (0-4) % Baso % (Auto) 0.7 (0-2) % Lymph # (Auto) 2.7 (1.2-4.9) X10*3/uL [place] # (Auto) 0.5 (0.1-1.2) X10*3/uL Eos # (Auto) 0.3 (0.0-0.4) X10*3/uL Baso # (Auto) 0.0 (0.0-0.2) X10*3/uL Abs Immat Gran (auto) 0.01 (0.00-0.03) X10*3/uL Absolute Neuts (auto) 2.1 (2.0-8.3) x10*3/uL Absolute Nucleated RBC 0.000 (0.0-0.012) X10*3/uL Nucleated RBC % (auto) 0.0 (0.0-0.2) /100WBC Sodium 139 (135-145) mmol/L Potassium 3.5 (3.3-5.1) mmol/L Chloride 104 (96-108) mmol/L Carbon Dioxide 24 (22-29) mmol/L Anion Gap 15 (12-20) BUN 6 L (9-16) mg/dL Creatinine 0.69 (0.5-1.4) mg/dL Estim Creat Clear Calc 117.5 Estimated GFR > 60 Random Glucose 116 H (60-115) mg/dL Calcium 9.2 (8.4-10.2) mg/dL Total Bilirubin 0.2 (0.0-1.0) mg/dL Direct Bilirubin < 0.2 (0.0-0.5) mg/dL AST 57 H (5-31) U/L ALT 45 H (0-31) U/L Alkaline Phosphatase 96 (39-117) U/L Total Protein 7.7 (6.5-8.0) g/dL Albumin 4.1 (3.5-5.0) g/dL Lipase 9 (8-78) U/L COVID-19 (STEVEN) Negative (Negative) COVID-19 Clin Com See Note Influenza Type A (JAYME) Negative (Negative) Influenza Type B (JAYME) Negative (Negative) Influenza A & B Note See Note Discharge Plan Discharge Clinical Impression: Abdominal pain Patient Disposition: Left W/O Completing Treatment Prescriptions: No Action metoclopramide HCl 5 mg tablet 5 mg PO Q8H PRN (Reason: nausea and vomiting) Qty: 20 0RF ondansetron 4 mg tablet,disintegrating 4 mg PO Q8H PRN (Reason: nausea and vomiting) Qty: 30 1RF Creon 12,000-38,000 -60,000 unit capsule,delayed release(DR/EC) 1 cap PO QID Qty: 120 0RF Rx Instructions: administer with meals and/or snacks -- MAX OF 4 CAPS PER DAY. valacyclovir 500 mg tablet 500 mg PO DAILY Trintellix 20 mg tablet 20 mg PO DAILY lamotrigine 200 mg tablet 200 mg PO DAILY Rx Instructions: 200mg in morning, 25mg at night lamotrigine 25 mg tablet 50 mg PO BEDTIME Rx Instructions: 200mg in morning, 25mg at night docusate sodium [Colace] 100 mg capsule 100 mg PO BID Qty: 60 3RF clonazepam 1 mg tablet,disintegrating 1 mg PO TID pantoprazole 40 mg tablet,delayed release (DR/EC) 40 mg PO DAILY@0630 prucalopride [Motegrity] 2 mg tablet 2 mg PO DAILY magnesium oxide 400 mg magnesium capsule 400 mg PO DAILY promethazine 12.5 mg suppository [place] PRN (Reason: Motion Sickness/Allergies) erythromycin ethylsuccinate 200 mg/5 mL Suspension For Reconstitution 400 mg PO Q8H 14 Days Qty: 420 3RF metoclopramide HCl [Reglan] 10 mg tablet 10 mg PO Q6H 7 Days Qty: 28 0RF oxycodone 10 mg tablet 10 mg PO Q8H PRN (Reason: severe pain (scale score 7-10)) Qty: 12 0RF Rx Instructions: Partial Fill upon patient request. bisacodyl 5 mg tablet,delayed release (DR/EC) 10 mg PO BEDTIME mirabegron [Myrbetriq] 50 mg tablet extended release 24 hr 50 mg PO DAILY hydrocortisone 2.5 % cream 1 appl topical BID PRN (Reason: pain) Qty: 28 0RF hydroxyzine HCl 25 mg tablet 25 mg PO BEDTIME cholecalciferol (vitamin D3) 125 mcg (5,000 unit) capsule 125 mcg PO DAILY Qty: 90 3RF eszopiclone [Lunesta] 3 mg tablet 3 mg PO BEDTIME famotidine 20 mg tablet 20 mg PO BID sucralfate 1 gram tablet 1 g PO TID Qty: 90 3RF Patient Comments: pt takes with 8 ounces of water 1 hour before her other medications. Discharge Date/Time: 01/25/25 17:45
--- OUTSIDE RECORDS SUMMARY | 2025-01-25 15:51 | XMS_ITS | Clinical Summary ---
Author Organization [facility] Address [address] [place] [address] Care Team Providers Care Supervisor [employer] Name Role Phone Nori Posey MD Primary Care Provider [phone] Allergies Active Allergy Reactions Criticality Noted Date Comments [place] 08/30/2023 Medications Medication Sig Dispensed Refills Start [...] age to complete this topic Care Teams Supervisor [employer] Relationship Specialty Start Date End Date Nori Posey MD [address] [place] [id number] PCP - General Internal Medicine 08/01/23
--- OUTSIDE RECORDS SUMMARY | 2025-01-25 15:51 | XMS_ITS | Clinical Summary ---
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 by Nasal route. - Nasal Active pantoprazole (PROTONIX) 40 mg EC tablet [...] mg tablet Take by mouth. Activ e Vitamin D3 50 mcg (2,000 unit) capsule [...] (one) time each day. 09/10/19 25 Active metoclopramide (REGLAN) 5 mg tablet take 1 tablet orally every 8 hours as needed for nausea and vomiting 11/14/19 25 Active sucralfate (CARAFATE) 1 gram tablet Take 1 tablet (1 g total) by mouth. 11/03/19 23 Active famotidine (PEPCID) 20 mg tabletIndications: Slow transit constipation,Gastr oparesis TAKE 1 TABLET BY MOUTH TWICE A DAY 180 tablet 12/03/19 25 Active vortioxetine (TRINTELLIX) 20 mg tablet Take by mouth daily. 025 Discontin ued(Patie nt Discharge ) traMADoL (Ultram) 50 mg tablet Take 1 Tablet by mouth 4 times daily. 10/22/2 025 Discontin ued(Patie nt Discharge ) zolpidem tartrate (AMBIEN ORAL) Take 10 mg by mouth at bedtime. - Oral Discontin ued(Patie nt Discharge ) calcitrioL (ROCALTROL) 0.25 mcg capsule Take by mouth 1 (one) time each day. Discontin ued(Patie nt Discharge ) tamsulosin (FLOMAX) 0.4 mg 24 hr capsule Take 1 capsule (0.4 mg total) by mouth. at bedtime 05/23/19 Discontin ued(Patie nt Discharge ) polyethylene glycol (PEG) 17 gram/dose oral powder 08/21/19 Discontin ued(Patie nt Discharge ) senna 8.6 mg tablet TAKE TWO TABLETS BY MOUTH EVERY DAY AT BEDTIME NEEDED FOR CONSTIPATION 07/26/19 Discontin ued(Patie nt Discharge ) Active Problems Problem Noted Date Diagnosed Date Colostomy in place ([facility] V24, [facility] V28) Class 1 obesity 11/24/2024 Internal hemorrhoid 11/24/2024 Irritable bowel syndrome 11/24/2024 Obstructive sleep apnea syndrome 11/24/2024 Agoraphobia with panic disorder 03/06/2022 Alopecia (capitis) totalis 03/06/2022 Body dysmorphic disorder 03/06/2022 History of suicidal behavior 03/06/2022 HSV-2 (herpes simplex virus 2) infection Major depressive disorder 03/06/2022 Migraine 03/06/2022 Overview (03/03/2024): Amitryptilline daily PTSD (post-traumatic stress disorder) 03/06/2022 Encounters Date Type Department Care Team Description 01/21/2025 10:30 AM EDT Office [address] [facility] [address] [place] [phone] Duy Lund NP Hospital discharge follow-up (Primary Dx) 01/12/2025 [facility] [address] [place] [phone] Janet Harding MD 01/05/2025 Telephone Internal Medicine - [facility] [address] [place] [phone] Janet Harding MD 11/25/2024 2:40 PM EDT Consult Gastroenterology - [address] [phone] Julian Sanchez MD Slow transit constipation (Primary Dx); Gastroparesis 2024 Telephone Internal Medicine - [facility] [address] [place] [phone] Janet Harding MD 10/29/2024 8:36 AM EDT - 10/29/2024 11:59 PM EDT Hospital Encounter [facility] MRI [address] [place] [address] Gait abnormality; Migraine without status migrainosus, not intractable, unspecified migraine type Discharge Disposition: Home or Self Care 10/29/2024 8:29 AM EDT - 10/29/2024 11:59 PM EDT Hospital Encounter [facility] MRI [address] [place] [phone] Gait abnormality; Migraine without status migrainosus, not intractable, unspecified migraine type Discharge Disposition: Home or Self Care from Last 3 Months Immunizations Immunization Administration Dates Next Due Tdap Tetanus diptheria acell ular pertussis (Boostrix; Adacel) 7yo and older 05/04/2023 Surgical History Surgery Date Site/Laterality Comments CHOLECYSTECTOMY PROCEDURE: [place] LAPAROSCOPY SURG CHOLECYSTECTOMY HYSTERECTOMY 2015 PROCEDURE: HISTORICAL [...] stress disorder) Suicide and self-inflicted i njury ([facility] V24, [facility] V28) DX:Suicide and self-inflict ed injury ([facility]) Major depression, chronic DX:Percy or [...] DX:Guaiac positive stools Hematuria DX:Hematuria Uterine cancer ([facility] V24, [facility] V28) 2014 DX:Uterine cancer ([facility]) Interstitial cystitis DX:Interst itial cystitis [...] Pulse 86 01/21/2025 10:16 AM EDT Temperature 36 C (96.8 F) 09/26/2024 12:29 PM EDT Respiratory Rate 18 09/19/2024 3:10 PM EDT Oxygen Saturation 97% 09/26/2024 12:29 PM EDT Inhaled Oxygen Concentration - - Weight 99.6 kg (219 lb 9.6 oz) 01/21/2025 10:16 AM EDT Height 160 cm (5' 3 ) 01/21/2025 10:16 AM EDT Body Mass Index 38.9 01/21/2025 10:16 AM EDT Plan of Treatment Upcoming Encounters Date Type Department Care Team (Late st Contact Info) Description 03/24/2025 11:30 AM EST Office Visit Internal Medicine - [facility] [address] [place], [place] [phone] Janet Harding MD [address] [place], [place] 03/31/2025 11:00 AM EST Office Visit [facility] [address] [place] [phone] Rocío Watkins PA [address] [place] [address] Health Maintenance Due Date Last Done Comments Hepatitis B Vaccines (1 of 3 - 19+ 3-dose series) 2000 Cervical Cancer Screening: P ap Smear 2002 HPV Vaccines (1 - 3-dose SCD M series) 2008 COVID-19 Vaccine (3 - Modern a risk series) 01/03/2021 12/06/2020, 10/19/2020 Social Influencers of Health Screening 03/05/2022 Depression Screening 04/02/2024 05/04/2023 Breast Cancer Screening 06/05/2024 06/05/2022 Cholesterol Screening (Lipid Panel) 03/06/2027 03/06/2022 DTaP,Tdap,and Td Vaccines (3 - Td or Tdap) 05/04/2033 05/04/2023, 12/16/2012 RSV Immunization Adult Patients (1 - 1-dose 75+ series) 2056 Influenza Vaccine Completed 12/31/2024, 04/30/2008, 06/13/2007 HIV Screening Completed 01/09/2025 Hepatitis C Screening Completed 01/09/2025 , 03/06/2022 HIB Vaccines Aged Out No longer [...] status migrainosus, not intractable, unspecified migraine type DEPRESSION SCREENING Routine 05/04/2023 JOE SCREENING DIGITAL [...] Final Result * External clinical lab (12/08/2024) Provider [facility] BLOOD ORDERABLES Fin al Result * External Nuc Med Report (11/12/2024) Anatomical Region Laterality Modality Nuclear Medicine Provider [facility] NM PROCEDURES Final Result * [...] Signed Date: 10/29/2024 15:57 ET Workstation ID: [id number] Transcribed By: Self Edit Transcribed Date: 10/29/2024 [...] Signed Date: 10/29/2024 15:57 ET Workstation ID: [id number] Transcribed By: Self Edit Transcribed Date: 10/29/2024 [...] Signed Date: 10/29/2024 16:00 ET Workstation ID: [id number] Transcribed By: Self Edit Transcribed Date: 10/29/2024 [...] Signed Date: 10/29/2024 16:00 ET Workstation ID: [id number] Transcribed By: Self Edit Transcribed Date: 10/29/2024 15:57 ET Yossi Marina MD IM MRI PROCEDURES Final Result * Depression Screening (05/04/2023) Depression Screening Abstracted Historical Provider HEALTH MAINTENANCE Final Result * JOE SCREENING DIGITAL (06/05/2022 11:27 AM EST) Anatomical Region Laterality Modality Mammography 06/05/2022 8:32 AM EST Narrative 06/05/2022 11:27 AM EST [facility] Diagnostic Imaging Department [address] [place] [address] Patient: PAULA JULES /Age/Sex: 1980 - 41 - F Unit#: [id number] Location/Status: SPDIMAM/REG CLI [facility]: VIDAL GARY DO [facility] Screening Digital - 06/05/22 - 854 EXAM: [facility] Screening Digital EXAM DATE AND TIME: 06/05/2022 8:56 AM HISTORY: Screening. Baseline exam. Maternal grandmother had breast carcinoma. COMPARISON: No comparison imaging. TECHNIQUE: CC and MLO views of both breasts were obtained using full field digital mammography. Bilateral digital breast tomosynthesis was performed in the MLO projection. Computer aided detection with [employer] 7.2-H and Candid io 3D 3.1 was employed. TISSUE DENSITY: b. [...] Routine screening mammogram BILATERAL in 1 year. 26772, 47406 3341F, 7025F Dictating Physician: KIYA MYLES MD Electronically Signed by: KIYA MYLES MD Dic Date/Time: 06/05/22 1126 Sign date/Time: 06/05/22 1127 Procedure Note Kiya Myles MD - 05/04/2023 [facility] Diagnostic Imaging Department [address] [place] [id number] Patient: LUIS REDDPAULAO.B./Age/Sex: 1980 - 41 - F Unit#: [id number] Location/Status: [facility] CLI Mnemonic/Ordering Site: [facility] Ordering Physician: VIDAL GARY DO [facility] Screening Digital - 06/05/22 - 854 EXAM: [facility] Screening Digital EXAM DATE AND TIME: 06/05/2022 8:56 AM HISTORY: Screening. Baseline exam. Maternal grandmother had breastcarcinoma. COMPARISON: No comparison imaging. TECHNIQUE: CC and MLO views of both breasts were obtained using fullfield digital mammography. Bilateral digital breast tomosynthesis was performedin the MLO projection. Computer aided detection with [employer]it[employer].IO 7.2-H andCandid io 3D 3.1 was employed. TISSUE DENSITY: b. [...] Routine screening mammogram BILATERAL in 1 year. [id number], [id number] 3341F, 7025F Dictating Physician: KIYA MYLES MD [...] Most Recently Relevant to Health Maintenance Insurance [facility] Care Teams Wheat Grower Relationship Specialty Start Date End Date Janet Harding MD [address] [place] [address] PCP - General Internal Medicine 08/04/24
[2025-01-25 15:59] LABS: MANUAL DIFF FLAG NO
[2025-01-25 16:00] LABS: Hematocrit 40.2 % (37.0-47.0); Hemoglobin 13.1 g/dl (12.0-16.0); Imm Gran Abs Auto 0.01 X10*3/uL (0.00-0.03); Imm Gran Pct Auto 0.2 % (0.0-0.4); Lymphocytes Absolute Auto 2.7 X10*3/uL (1.2-4.9); Mean Corpuscular HGB Conc 32.6 g/dl (31.0-35.0); Mean Corpuscular Hemoglobin 26.7 pg (27.0-33.0); Mean Corpuscular Volume 82.0 fL (80.0-98.0); NRBC Abs Auto 0.000 X10*3/uL (0.0-0.012); NRBC Pct Auto 0.0 /100WBC (0.0-0.2); Platelet Count 366 X10*3/uL (160-400); Red Blood Count 4.90 X10*6/uL (4.20-5.50); White Blood Count 5.7 X10*3/uL (4.8-10.8)
[2025-01-25 16:17] LABS: IDNOW Serial# 58CA691E; Influenza B2 Negative (Negative)
[2025-01-25 16:17] LABS: COVID-19 Test Negative (Negative); IDNOW Serial# 55D5AD1C
[2025-01-25 16:26] LABS: Alanine Aminotransferase 45 U/L (0-31); Albumin Level 4.1 g/dL (3.5-5.0); Alkaline Phosphatase 96 U/L (39-117); Anion Gap 15 (12-20); Aspartate Amino Transferase 57 U/L (5-31); Blood Urea Nitrogen 6 mg/dL (9-16); Calcium 9.2 mg/dL (8.4-10.2); Carbon Dioxide 24 mmol/L (22-29); Chloride 104 mmol/L (96-108); Creatinine Clr Calc Pharmacy 117.5; Estimated Glomerular Filt Rate > 60; Lipase 9 U/L (8-78); Potassium 3.5 mmol/L (3.3-5.1); Sodium 139 mmol/L (135-145); Total Protein 7.7 g/dL (6.5-8.0)
== END 2025-01-25 17:45 | disposition left against medical advice (07) ==
PROVIDERS: Nurse Practitioner Family; Emergency Provider Emergency Medicine; PCP Internal Medicine
DX: K31.84 Gastroparesis (principal); Z11.52 Encounter for screening for COVID-19; Z79.899 Other long term (current) drug therapy
CPT/HCPCS: 80048; 80076; 83690; 85025; 87502; 87635; 99281; 99283

== ENCOUNTER 2025-01-27 13:45 | Emergency (ER) | payer OTHER, SELFPAY ==
--- OUTSIDE RECORDS SUMMARY | 2024-01-02 10:45 | XMS_ITS | Encounter Summary ---
Author Organization [employer] Address [address] [place] [address] Care Team Providers Care Chain Builder Loom Control Name Role Phone Nori Posey MD Primary Care Provider +1 -[phone] Encounter Details Date Type Department Care Team (Late st Contact Info) Description 01/02/2024 10:45 AM EDT Hospital Encounter TH HISTORIC ENCOUNTERS EASTERN CONVERSION ONLY Yossi Marina MD 175 [place] [address] Social History Tobacco Use Types Packs/Day Years [...] 3:17 PM EDT Nadia Wolfe RN * [place] Suicide Severity Rating Scale (Screener/Recent Self-Report) Question [...] home since Sunday. Still has a black [place] in visual field of L eye. Still [...] ambulation ?? 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 The majority of the actual suhp-qw-htwl visit was spent counseling the patient with respect to the current neurological picture. Yossi Marina MD documented in this encounter Plan of Treatment Upcoming Encounters Date Type Department Care Team (Late st Contact Info) Description 03/24/2025 11:30 AM EST Office Visit Internal Medicine - [address] [place] [phone] Janet Harding MD [address] [place] [address] 03/31/2025 11:00 AM EST Office Visit [facility] 175 [facility] [address] [place] [address] Rocío Watkins, MARYELLEN [address] [place] [phone] documented as of this encounter Visit Diagnoses Not on filedocumented in this encounter Care Teams Chain Builder Loom Control Relationship Specialty Start Date End Date Nori Posey MD PCP - General 01/30/23 04/22/24 documented as of this encounter
--- NOTE | ~2025-01-27 | CT_ITS ---
CLINICAL HISTORY: pain, R O SMA SYNDROME CT ANGIOGRAPHY ABDOMEN AND PELVIS WITH CONTRAST. 3-D POST PROCESSING. Comparison: CT/REG/SR - CT ABDOMEN PELVIS W IV CON - 12/21/24 02:25 EDT Findings: Aorta, mesenteric/renal arteries, and iliofemoral systems are within normal limits. The aortomesenteric angle measures 87 degrees. In SMA syndrome, the angle is decreased 6-22 degrees. The aortomesenteric distance is 1.5 cm. A distance of 2-8 mm is seen in SMA syndrome. No basilar consolidation or pleural effusion. No acute abnormalities in the solid organs. No urolithiasis. Cholecystectomy. No bowel obstruction, pneumoperitoneum, or pneumatosis. No abnormal distention of the stomach or duodenum. No extrinsic compression of the duodenum. Again identified is a left lower quadrant colostomy. No ascites or organized fluid collection. No significant mesenteric or paracolic edema. The appendix is not visualized. Hysterectomy. Grossly unremarkable underdistended urinary bladder. No acute fracture. IMPRESSION: 1. No CTA evidence for superior mesenteric artery syndrome. 2. No obstructive or acute inflammatory changes in the gastrointestinal and genitourinary tracts. This document has been electronically signed by: Jennie Barajas DO on 01/27/2025 21:39:18
[2025-01-27 14:16] VITALS: BP 120/73; PULSE 90; RESP 18; TEMP 36.7; O2SAT 98; BMI 36.3
--- NOTE | 2025-01-27 14:26 | ED.GENADULT ---
HPI - General Adult General Chief complaint: General Medical Stated complaint: abd pain Time Seen by Provider: 01/27/25 16:08 Source: patient, RN notes reviewed and old records reviewed Mode of arrival: ambulatory Limitations: no limitations History of Present Illness ED Provider: Mark VILLA narrative: 44-year-old female with a past medical history for gastroparesis, occipital neuralgia, interstitial cystitis presenting for evaluation of abdominal pain with nausea and vomiting. Patient reports ever since she had her gallbladder removed about 3 years ago she has had severe gastroparesis She has had multiple emergency room visits and hospitalizations past couple of months for inability to tolerate p.o. She reports that she was admitted to [facility] for 2 weeks up until 1 week ago She feels that they were unable to do anything for her She follows with GI locally with MARYELLEN Lopez. The patient reports that she continues to have chronic abdominal pain that is burning in nature. She is I am with a tolerate any solid foods She takes ensure and chicken broth only She rates her pain as 10/10 She believes that she needs a ?J-tube for nutrition. The patient does have a colostomy in the left lower quadrant that was placed in July this year Related Data Home Medications ?Medication ?Instructions ?Recorded ?Confirmed lamotrigine 200 mg tablet 200 mg PO DAILY 01/02/23 12/29/24 valacyclovir 500 mg tablet 500 mg PO DAILY 01/02/23 12/29/24 vortioxetine 20 mg tablet 20 mg PO DAILY 01/02/23 12/29/24 (Trintellix) hydroxyzine HCl 25 mg tablet 25 mg PO BEDTIME 01/08/24 12/29/24 lamotrigine 25 mg tablet 50 mg PO BEDTIME 01/08/24 12/29/24 bisacodyl 5 mg tablet,delayed 10 mg PO BEDTIME 07/25/24 12/29/24 release mirabegron 50 mg tablet,extended 50 mg PO DAILY 07/25/24 12/29/24 release 24 hr (Myrbetriq) eszopiclone 3 mg tablet (Lunesta) 3 mg PO BEDTIME 08/06/24 12/29/24 clonazepam 1 mg disintegrating 1 mg PO TID 12/08/24 12/29/24 tablet pantoprazole 40 mg tablet,delayed 40 mg PO DAILY@0630 12/08/24 12/29/24 release magnesium oxide 400 mg PO DAILY 12/21/24 12/29/24 prucalopride 2 mg tablet 2 mg PO DAILY 12/21/24 12/29/24 (Motegrity) promethazine 12.5 mg rectal mg NH PRN Motion Sickness/Allergies 12/29/24 suppository Previous Rx's ?Medication ?Instructions ?Recorded cholecalciferol (vitamin D3) 125 125 mcg PO DAILY #90 caps 05/30/24 mcg (5,000 unit) capsule docusate sodium 100 mg capsule 100 mg PO BID #60 caps 08/20/24 (Colace) metoclopramide HCl 5 mg tablet 5 mg PO Q8H PRN nausea and 11/13/24 vomiting #20 tabs esomeprazole magnesium 40 mg 40 mg PO DAILY #90 caps 11/24/24 capsule,delayed release sucralfate 1 gram tablet 1 g PO BID #60 tabs 12/17/24 erythromycin ethylsuccinate 200 400 mg (10 mL) PO Q8H 14 days #420 01/01/25 mg/5 mL oral powder for suspension mL metoclopramide HCl 10 mg tablet 10 mg PO Q6H 7 days #28 tabs 01/01/25 (Reglan) hydrocortisone 2.5 % topical cream 1 appl topical BID PRN pain #28 01/02/25 grams tlfreh-uvyhrtrq-sqaxazo(pork)12,000-38,000-60,000 1 cap PO QID #120 caps 01/27/25 unit capsule,del rel (Creon) ondansetron 4 mg disintegrating 4 mg PO Q8H PRN nausea and 01/27/25 tablet vomiting #30 tabs oxycodone 10 mg tablet 10 mg PO Q8H PRN severe pain 01/27/25 (scale score 7-10) #12 tabs Allergies Allergy/AdvReac Type Severity Reaction Status Date / Time propofol Allergy Intermediate Itching Verified 01/27/25 14:19 morphine Allergy Mild Itching Verified 01/27/25 14:19 Review of Systems Constitutional: Constitutional: Denies body ache(s), Denies chills, Denies fever(s) and Denies headache(s) Eyes: Eyes: Denies blurry vision ENT: Denies dizziness, Denies dry mouth and Denies headache(s) Cardiovascular: Cardiovascular: Denies chest pain and Denies dyspnea on exertion Respiratory: Respiratory: Denies cough and Denies dyspnea on exertion Gastrointestinal: Gastrointestinal: Reports abdominal pain, Denies diarrhea, Denies loose stools, Reports nausea and Reports vomiting Genitourinary: Genitourinary: Denies difficulty voiding Musculoskeletal: Musculoskeletal: Denies back pain Neurologic: Denies dizziness and Denies headache(s) [facility] Past Medical History Medical History Gastroparesis History of lumbar puncture (06/13/23) Seizures Postprocedural seroma of skin and subcutaneous tissue following other procedure Colostomy in place Hx of flexible sigmoidoscopy (07/26/24) Proctosigmoiditis Stricture of sigmoid colon Colon wall thickening Obesity, Class II, BMI 35-39.9 IBS (irritable bowel syndrome) History of colitis Gastric ulcer Interstitial cystitis Occipital neuralgia of right side History of suicidal ideation Anxiety Agoraphobia MDD (major depressive disorder) PTSD (post-traumatic stress disorder) Surgical History Hx of History of colon surgery (08/12/24) History of tonsillectomy and adenoidectomy Hx of appendectomy H/O endoscopy (12/09/24) Hx of colonoscopy Hx of section H/O: hysterectomy Hx of cholecystectomy (~12/2022) Family History Family History Father Prostate cancer Maternal Uncle Colon cancer Maternal Grandmother Breast cancer Social History Social History Household Members: Spouse Housing: House Do you presently have visiting nurse or other home services: No Alcohol intake: never 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 Patient Tobacco Use Status: Former Tobacco user e-Cigarette/Vaping Use: Never Used Second Hand Smoke Exposure: No Substance Use Type: Marijuana Advance Directives Date on File: 01/25/25 service: No Physical Exam ED Vital Signs: Vital Signs - 24 hr 01/27/25 14:16 01/27/25 21:12 01/27/25 22:51 Temperature 98.1 F 98.0 F 98.1 F Pulse Rate 90 80 86 Respiratory Rate 18 16 18 Blood Pressure 120/73 123/75 122/77 Pulse Oximetry 98 96 97 Oxygen Delivery Method Room Air Room Air Room Air 01/27/25 23:28 Temperature 98.1 F Pulse Rate 86 Respiratory Rate 18 Blood Pressure 122/77 Pulse Oximetry 97 Oxygen Delivery Method Room Air BMI result Body Mass Index 36.3 Const General: healthy appearing, comfortable, no acute distress, alert and awake Nutritional Appearance: well nourished Orientation/consciousness: patient oriented x3 HENMT Head: Yes normocephalic and Yes atraumatic Eyes Eyelids: Yes eyelids normal Conjunctivae: conjunctivae normal Sclerae: sclerae normal Corneas: corneas normal Pupils: Equal, round and reactive pupils present EOM: EOMs intact bilaterally Neck Neck: Yes full ROM Resp Effort & Inspection: normal respiratory effort, able to speak in complete sentences and not labored Auscultation: clear to auscultation bilaterally Cardio Rate: regular rate Rhythm: regular rhythm GI Palpation (GI): Soft to palpation, not firm, Tenderness to palpation present (GI) in the epigastrum, no guarding and not rigid Skin General skin exam: elasticity normal Neuro General: patient oriented x3 Cranial nerves: Yes Equal, round and reactive pupils present and Yes Bilaterally intact EOM present Cognition (Neuro): normal cognition Extrem Other: Moving all extremities well without any obvious deformities Course Course Course Narrative: RME: 41 year female history of gastroparesis status post colostomy presents to ED for abdominal pain diarrhea and unable to keep food down. Patient states she has +scheduled plan for possible G-tube. Labs ordered Reevaluation(s) Reevaluation #1: Discussed with GI, Dr. Jackson who recommends a CT angiography of the abdomen pelvis to evaluate her SMA syndrome. Time: 20:44 Reevaluation #2: CT angiography does not show any acute findings to explain the patient's pain specifically no evidence of SMA syndrome. Time: 21:45 Medications Administered Discontinued Medications Generic Name Dose Route Start Last Admin Trade Name Freq PRN Reason Stop Dose Admin Diphenhydramine HCl 25 mg 01/27/25 16:50 01/27/25 18:05 Diphenhydramine Hcl 50 Mg/Ml Vial IVPUSH 01/27/25 16:51 25 mg ONCE ONE Administration Hydromorphone HCl 1 mg 01/27/25 16:50 01/27/25 18:04 Hydromorphone Hcl 1 Mg/Ml Syringe IVPUSH 01/27/25 16:51 1 mg ONCE ONE Administration Protocol Hydromorphone HCl 1 mg 01/27/25 20:47 01/27/25 21:22 Hydromorphone Hcl 1 Mg/Ml Syringe IVPUSH 01/27/25 20:48 1 mg ONCE ONE Administration Protocol Lactated Ringer's 1,000 mls @ 999 mls/hr 01/27/25 17:00 01/27/25 19:07 Lr IV 01/27/25 18:00 Infused .Q1H1M MARIAH Infusion Iohexol 100 ml 01/27/25 20:32 01/27/25 20:34 Iohexol 350 Mg/Ml 100 Ml Infus..Btl IV 01/27/25 20:33 80 ml ONCE ONE Administration Metoclopramide HCl 10 mg 01/27/25 16:50 01/27/25 18:05 Metoclopramide Hcl 10 Mg/2 Ml Vial IVPUSH 01/27/25 16:51 10 mg ONCE ONE Administration Ondansetron HCl 4 mg 01/27/25 20:47 01/27/25 21:23 Ondansetron Hcl 4 Mg/2 Ml Vial IVPUSH 01/27/25 20:48 4 mg ONCE ONE Administration Medical Decision Making Medical Decision Making [facility] Narrative: 44-year-old female presents for evaluation of continued abdominal pain, nausea and vomiting. She reports that she has not tried to have any solid foods due to her persistent gastroparesis. Her vital signs are stable, her labs are unremarkable. Her electrolytes are within normal limits, renal function is within normal limits. There was no evidence of significant metabolic derangement. No evidence of infectious process. Her ostomy continues to have adequate output, there is no evidence of bowel obstruction. We will attempt to control the patient's pain with Dilaudid as she has a morphine allergy. We will also give IV Reglan with IV Benadryl, IV fluids and re-evaluate Differential Diagnosis Differential Diagnoses: The differential diagnosis associated with the presentation includes Gastroparesis Gastroenteritis Ileus Bowel obstruction less likely Anxiety Admission/Observation Consideration of admission/observation: Escalation of care including admission/observation considered Lab Data [facility] Lab Attestation statement: I reviewed the patient's lab results. As above 01/27/25 14:55 01/27/25 14:55 Labs: Lab Results 01/27/25 01/27/25 Range/Units 14:55 18:57 WBC 5.6 (4.8-10.8) X10*3/uL RBC 4.95 (4.20-5.50) X10*6/uL Hgb 13.2 (12.0-16.0) g/dl Hct 41.2 (37.0-47.0) % MCV 83.2 (80.0-98.0) fL MCH 26.7 L (27.0-33.0) pg MCHC 32.0 (31.0-35.0) g/dl RDW 14.5 (11.0-16.0) % Plt Count 344 (160-400) X10*3/uL MPV 9.8 (9.4-12.3) fL Immature Gran % (Auto) 0.0 (0.0-0.4) % Neut % (Auto) 52.0 (45-73) % Lymph % (Auto) 36.4 (20-40) % [place] % (Auto) 7.7 (2-11) % Eos % (Auto) 3.4 (0-4) % Baso % (Auto) 0.5 (0-2) % Lymph # (Auto) 2.0 (1.2-4.9) X10*3/uL [place] # (Auto) 0.4 (0.1-1.2) X10*3/uL Eos # (Auto) 0.2 (0.0-0.4) X10*3/uL Baso # (Auto) 0.0 (0.0-0.2) X10*3/uL Abs Immat Gran (auto) 0.00 (0.00-0.03) X10*3/uL Absolute Neuts (auto) 2.9 (2.0-8.3) x10*3/uL Absolute Nucleated RBC 0.000 (0.0-0.012) X10*3/uL Nucleated RBC % (auto) 0.0 (0.0-0.2) /100WBC Sodium 140 (135-145) mmol/L Potassium 4.3 D (3.3-5.1) mmol/L Chloride 106 (96-108) mmol/L Carbon Dioxide 29 (22-29) mmol/L Anion Gap 9 L (12-20) BUN 7 L (9-16) mg/dL Creatinine 0.71 (0.5-1.4) mg/dL Estim Creat Clear Calc 119.0 Estimated GFR > 60 Random Glucose 121 H (60-115) mg/dL Calcium 9.4 (8.4-10.2) mg/dL Total Bilirubin 0.2 (0.0-1.0) mg/dL AST 87 H (5-31) U/L ALT 81 H (0-31) U/L Alkaline Phosphatase 96 (39-117) U/L Total Protein 7.4 (6.5-8.0) g/dL Albumin 4.1 (3.5-5.0) g/dL Lipase 11 (8-78) U/L Beta HCG, Quant < 2 mIU/mL Urine Color Yellow Urine Appearance Clear Urine pH >= 9.0 (5.0-9.0) Ur Specific Turrell 1.010 (1.005-1.025) Urine Protein Negative (Neg-Trace) mg/dL Urine Glucose (UA) Negative (Negative) mg/dL Urine Ketones Trace (Negative) mg/dL Urine Blood Negative (Negative) Urine Nitrite Negative (Negative) Ur Leukocyte Esterase Negative (Negative) Radiology Impression Discussion of test interpretation with radiology: I have reviewed the radiologist's reading. Radiologist Impression: Findings: Aorta, mesenteric/renal arteries, and iliofemoral systems are within normal limits. The aortomesenteric angle measures 87 degrees. In SMA syndrome, the angle is decreased 6-22 degrees. The aortomesenteric distance is 1.5 cm. A distance of 2-8 mm is seen in SMA syndrome. No basilar consolidation or pleural effusion. No acute abnormalities in the solid organs. No urolithiasis. Cholecystectomy. No bowel obstruction, pneumoperitoneum, or pneumatosis. No abnormal distention of the stomach or duodenum. No extrinsic compression of the duodenum. Again identified is a left lower quadrant colostomy. No ascites or organized fluid collection. No significant mesenteric or paracolic edema. The appendix is not visualized. Hysterectomy. Grossly unremarkable underdistended urinary bladder. No acute fracture. IMPRESSION: 1. No CTA evidence for superior mesenteric artery syndrome. 2. No obstructive or acute inflammatory changes in the gastrointestinal and genitourinary tracts. This document has been electronically signed by: Jennie Barajas DO on 01/27/2025 21:39:18 Discharge Plan Discharge Clinical Impression: Abdominal pain, Gastroparesis Patient Disposition: Home, Self-Care Instructions: Abdominal Pain (ED), Gastroparesis (ED) Additional Instructions: Your workup in the ER today did not show any concerning findings. This includes your blood work, the CT angiography abdomen pelvis did not show any evidence of SMA syndrome. I recommend that you follow up with the flu seat for GI. Return for new or worsening symptoms. You should take MiraLax daily while you are taking pain medications such as oxycodone Prescriptions: New oxycodone 10 mg tablet 10 mg PO Q8H PRN (Reason: severe pain (scale score 7-10)) Qty: 12 0RF Rx Instructions: Partial Fill upon patient request. No Action metoclopramide HCl 5 mg tablet 5 mg PO Q8H PRN (Reason: nausea and vomiting) Qty: 20 0RF sucralfate 1 gram tablet 1 g PO BID Qty: 60 3RF Patient Comments: pt takes with 8 ounces of water 1 hour before her other medications. ondansetron 4 mg tablet,disintegrating 4 mg PO Q8H PRN (Reason: nausea and vomiting) Qty: 30 1RF Creon 12,000-38,000 -60,000 unit capsule,delayed release(DR/EC) 1 cap PO QID Qty: 120 0RF Rx Instructions: administer with meals and/or snacks -- MAX OF 4 CAPS PER DAY. valacyclovir 500 mg tablet 500 mg PO DAILY Trintellix 20 mg tablet 20 mg PO DAILY lamotrigine 200 mg tablet 200 mg PO DAILY Rx Instructions: 200mg in morning, 25mg at night lamotrigine 25 mg tablet 50 mg PO BEDTIME Rx Instructions: 200mg in morning, 25mg at night docusate sodium [Colace] 100 mg capsule 100 mg PO BID Qty: 60 3RF clonazepam 1 mg tablet,disintegrating 1 mg PO TID pantoprazole 40 mg tablet,delayed release (DR/EC) 40 mg PO DAILY@0630 prucalopride [Motegrity] 2 mg tablet 2 mg PO DAILY magnesium oxide 400 mg magnesium capsule 400 mg PO DAILY promethazine 12.5 mg suppository NH PRN (Reason: Motion Sickness/Allergies) erythromycin ethylsuccinate 200 mg/5 mL Suspension For Reconstitution 400 mg PO Q8H 14 Days Qty: 420 3RF metoclopramide HCl [Reglan] 10 mg tablet 10 mg PO Q6H 7 Days Qty: 28 0RF bisacodyl 5 mg tablet,delayed release (DR/EC) 10 mg PO BEDTIME mirabegron [Myrbetriq] 50 mg tablet extended release 24 hr 50 mg PO DAILY hydrocortisone 2.5 % cream 1 appl topical BID PRN (Reason: pain) Qty: 28 0RF hydroxyzine HCl 25 mg tablet 25 mg PO BEDTIME cholecalciferol (vitamin D3) 125 mcg (5,000 unit) capsule 125 mcg PO DAILY Qty: 90 3RF eszopiclone [Lunesta] 3 mg tablet 3 mg PO BEDTIME esomeprazole magnesium 40 mg capsule,delayed release(DR/EC) 40 mg PO DAILY Qty: 90 5RF Rx Instructions: before meals Interventions: ED Discharge Assessment Last Done: 01/27/25 23:28 Discharge Date/Time: 01/27/25 23:31 Print Language: [place] Citizen
[2025-01-27 14:58] LABS: MANUAL DIFF FLAG NO
[2025-01-27 15:02] LABS: Hematocrit 41.2 % (37.0-47.0); Hemoglobin 13.2 g/dl (12.0-16.0); Imm Gran Abs Auto 0.00 X10*3/uL (0.00-0.03); Imm Gran Pct Auto 0.0 % (0.0-0.4); Lymphocytes Absolute Auto 2.0 X10*3/uL (1.2-4.9); Mean Corpuscular HGB Conc 32.0 g/dl (31.0-35.0); Mean Corpuscular Hemoglobin 26.7 pg (27.0-33.0); Mean Corpuscular Volume 83.2 fL (80.0-98.0); NRBC Abs Auto 0.000 X10*3/uL (0.0-0.012); NRBC Pct Auto 0.0 /100WBC (0.0-0.2); Platelet Count 344 X10*3/uL (160-400); Red Blood Count 4.95 X10*6/uL (4.20-5.50); White Blood Count 5.6 X10*3/uL (4.8-10.8)
[2025-01-27 15:42] LABS: Alanine Aminotransferase 81 U/L (0-31); Albumin Level 4.1 g/dL (3.5-5.0); Alkaline Phosphatase 96 U/L (39-117); Anion Gap 9 (12-20); Aspartate Amino Transferase 87 U/L (5-31); Blood Urea Nitrogen 7 mg/dL (9-16); Calcium 9.4 mg/dL (8.4-10.2); Carbon Dioxide 29 mmol/L (22-29); Chloride 106 mmol/L (96-108); Creatinine Clr Calc Pharmacy 119.0; Estimated Glomerular Filt Rate > 60; Lipase 11 U/L (8-78); Potassium 4.3 mmol/L (3.3-5.1); Sodium 140 mmol/L (135-145); Total Protein 7.4 g/dL (6.5-8.0)
--- NOTE | 2025-01-27 16:20 | PC.NURSE ---
patient a&ox3, patient c/o 9/10 burning lower abd pain. labs previously drawn, vitals have been stable, pt awaiting provider evaluation, plan of care ongoing
--- NOTE | 2025-01-27 17:08 | PC.NURSE ---
pt difficult stick, pt states she needs US IV access, this nurse attempted x1- IV site blew after flash was obtained, provider notified.
[2025-01-27] MEDS: Lactated Ringers 1,000 ML 999 ML IV (18:06)
[2025-01-27 19:18] LABS: Appearance Urine Clear; Glucose Urine UA Negative (Negative); PH >= 9.0 (5.0-9.0); Specific Gravity - Urine 1.010 (1.005-1.025)
--- OUTSIDE RECORDS SUMMARY | 2025-01-27 20:03 | XMS_ITS | Clinical Summary ---
Author Organization [facility] Address [address] [place] [address] Phone Care Team Providers Care Procurement Officer Name Role Phone Janet Harding MD Primary Care Provider [phone] Allergies Active Allergy Reactions Criticality Noted Date [...] Noted Date Diagnosed Date Colostomy in place ([facility] V24, [facility] V28) Class 1 obesity 11/24/2024 Internal hemorrhoid [...] AM EDT Office [address] Internal Medicine [address] [place] [phone] Duy Lund NP Hospital discharge follow-up (Primary Dx) 01/[facility] [address] [place] [phone] Janet Harding MD 01/05/2025 Telephone Internal Medicine - [facility] [address] [place] [address] Janet Harding MD 11/25/2024 2:40 PM EDT Consult Gastroenterology - [address] [phone] Julian Sanchez MD Slow transit constipation (Primary Dx); Gastroparesis 2024 Telephone Internal Medicine - [facility] [address] [place] [address] Janet Harding MD 10/29/2024 8:36 AM EDT - 10/29/2024 11:59 PM EDT Hospital Encounter [facility] MRI [address] [place] [address] Gait abnormality; Migraine without status migrainosus, not intractable, unspecified migraine type Discharge Disposition: Home or Self Care 10/29/2024 8:29 AM EDT - 10/29/2024 11:59 PM EDT Hospital Encounter [facility] MRI [address] [place] [phone] Gait abnormality; Migraine without status migrainosus, not intractable, unspecified migraine type Discharge Disposition: Home or Self Care from Last 3 Months Immunizations Immunization Administration Dates Next Due Tdap Tetanus diptheria acell ular pertussis (Boostrix; Adacel) 7yo and older 05/04/2023 Surgical History Surgery Date Site/Laterality Comments CHOLECYSTECTOMY PROCEDURE: [place] LAPAROSCOPY SURG CHOLECYSTECTOMY HYSTERECTOMY 2015 PROCEDURE: HISTORICAL [...] stress disorder) Suicide and self-inflicted i njury ([facility] V24, [facility] V28) DX:Suicide and self-inflict ed injury ([facility]) Major depression, chronic DX:Percy or depression, chronic [...] DX:Guaiac positive stools Hematuria DX:Hematuria Uterine cancer ([facility] V24, [facility] V28) 2014 DX:Uterine cancer ([facility]) Interstitial cystitis DX:Interst itial cystitis Herpes genitalis [...] Office Visit Internal Medicine - [facility] [address] [place] [address] Janet Harding MD [address] [place], [place] 03/31/2025 11:00 AM EST Office Visit [facility] [address] [place] [address] Rocío Watkins [place] [address] [place] [address] Health Maintenance Due Date Last [...] Anatomical Region Laterality Modality Nuclear Medicine Provider [place] [facility] NM PROCEDURES Final Result * [...] Signed Date: 10/29/2024 15:57 ET Workstation ID: [id number] Transcribed By: Self Edit Transcribed Date: 10/29/2024 [...] Signed Date: 10/29/2024 15:57 ET Workstation ID: [id number] Transcribed By: Self Edit Transcribed Date: 10/29/2024 [...] Signed Date: 10/29/2024 16:00 ET Workstation ID: [id number] Transcribed By: Self Edit Transcribed Date: 10/29/2024 [...] Signed Date: 10/29/2024 16:00 ET Workstation ID: [id number] Transcribed By: Self Edit Transcribed Date: 10/29/2024 15:57 ET Yossi Marina MD IM MRI PROCEDURES Final Result * Depression Screening (05/04/2023) Depression Screening Abstracted Historical Provider HEALTH MAINTENANCE Final Result * JOE SCREENING DIGITAL (06/05/2022 11:27 AM EST) Anatomical Region Laterality Modality Mammography 06/05/2022 8:32 AM EST Narrative 06/05/2022 11:27 AM EST [facility] Diagnostic Imaging Department [address] [place] [address] Patient: PAULA JULES /Age/Sex: 1980 - 41 - F Unit#: [id number] Location/Status: SPDIMAM/REG CLI Mnemonic/Ordering [facility] Order[facility] Physician: VIDAL GARY DO [facility] Screening Digital - 06/05/22 - 854 EXAM: [facility] Screening Digital EXAM DATE AND TIME: 06/05/2022 8:56 AM HISTORY: Screening. Baseline exam. Maternal grandmother had breast carcinoma. COMPARISON: No comparison imaging. TECHNIQUE: CC and MLO views of both breasts were obtained using full field digital mammography. Bilateral digital breast tomosynthesis was performed in the MLO projection. Computer aided detection with [employer] 7.2-H and [employer] 3D 3.1 was employed. TISSUE DENSITY: b. [...] Routine screening mammogram BILATERAL in 1 year. [id number], [id number], 7025F Dictating Physician: KIYA MYLES MD Electronically Signed by: KIYA MYLES MD Dic Date/Time: 06/05/22 1126 Sign date/Time: 06/05/22 1127 Procedure Note Kiya Myles MD - 05/04/2023 [facility] Diagnostic Imaging Department [address] [place] [address] [id number] Patient: LUIS REDDPAULAO.B./Age/Sex: 1980 - 41 - F Unit#: [id number] Location/Status: [facility] CLI Mnemonic/Ordering Site[facility] Ordering Physician: VIDAL GARY DO [facility] Screening Digital - 06/05/22 - 854 EXAM: [facility] Screening Digital EXAM DATE AND TIME: 06/05/2022 8:56 AM HISTORY: Screening. Baseline exam. Maternal grandmother had breastcarcinoma. COMPARISON: No comparison imaging. TECHNIQUE: CC and MLO views of both breasts were obtained using fullfield digital mammography. Bilateral digital breast tomosynthesis was performedin the MLO projection. Computer aided detection with [employer] 7.2-H and[employer] 3D 3.1 was employed. TISSUE DENSITY: b. [...] Routine screening mammogram BILATERAL in 1 year. [id number], [id number] 3341F, 7025F Dictating Physician: KIYA MYLES MD [...] Most Recently Relevant to Health Maintenance Insurance [facility] [employer] Care Teams Procurement Officer Relationship Specialty Start Date End Date Janet Harding MD [address] [place] [address] PCP - General Internal Medicine 08/04/24
--- OUTSIDE RECORDS SUMMARY | 2025-01-27 20:03 | XMS_ITS | Clinical Summary ---
Author Organization [employer] [facility] Address [address] [place] [address] Care Team Providers Care Supervisor [employer] Name Role Phone Nori Posey MD Primary Care Provider [phone] Allergies Active Allergy Reactions Criticality Noted Date Comments Raysal 08/30/2023 Medications Medication Sig Dispensed Refills Start [...] to complete this topic Care Teams Supervisor [employer] Relationship Specialty Start Date End Date Nori Posey MD [address] [place] [phone] PCP - General Internal Medicine 08/01/23
[2025-01-27] MEDS: iohexoL 350 MG/ML 100 ML INFUS..BTL IV (20:34)
[2025-01-27 21:12] VITALS: BP 123/75; PULSE 80; RESP 16; TEMP 36.7; O2SAT 96
[2025-01-27 22:51] VITALS: BP 122/77; PULSE 86; RESP 18; TEMP 36.7; O2SAT 97
[2025-01-27 23:28] VITALS: BP 122/77; PULSE 86; RESP 18; TEMP 36.7; O2SAT 97
== END 2025-01-27 23:31 | disposition home or self-care (01) ==
PROVIDERS: Physician Assistant; Emergency Provider Emergency Medicine; PCP Internal Medicine
DX: K31.89 Other diseases of stomach and duodenum (principal); R10.9 Unspecified abdominal pain; R11.2 Nausea with vomiting, unspecified
CPT/HCPCS: 36415; 74174; 80053; 81003; 83690; 84702; 85025; 96361; 96374; 96375; 96376; 99284; 99285; J1171; J1200; J2405; J2765; J7120; Q9967

== ENCOUNTER → 2025-01-27 20:06 | Outpatient (BNV) | payer OTHER, SELFPAY | PROVIDERS: Emergency Provider Emergency Medicine; PCP Internal Medicine; Visit Provider Radiology Diagnostic Radiology | DX: R10.9 Unspecified abdominal pain (principal) | CPT/HCPCS: 74174 ==

== ENCOUNTER 2025-01-28 14:18 | Outpatient (AMB) | payer OTHER, SELFPAY ==
--- OUTSIDE RECORDS SUMMARY | 2024-01-02 10:45 | XMS_ITS | Encounter Summary ---
Author Organization [employer] Address [address] [place] [address] Care Team Providers Care Sales Clerk Name Role Phone Nori Posey MD Primary Care Provider +1 -[phone] Encounter Details Date Type Department Care Team (Late st Contact Info) Description 01/02/2024 10:45 AM EDT Hospital Encounter TH HISTORIC ENCOUNTERS EASTERN CONVERSION ONLY Yossi Marina MD 175 [place] [address] Social History Tobacco Use Types Packs/Day Years [...] 3:17 PM EDT Nadia Wolfe RN * [place] Suicide Severity Rating Scale (Screener/Recent Self-Report) Question [...] home since Sunday. Still has a black [place] in visual field of L eye. Still [...] ambulation ?? 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 The majority of the actual comd-tl-jxcg visit was spent counseling the patient with respect to the current neurological picture. Yossi Marina MD documented in this encounter Plan of Treatment Upcoming Encounters Date Type Department Care Team (Late st Contact Info) Description 03/24/2025 11:30 AM EST Office Visit Internal Medicine - [address] [place] [phone] Janet Harding MD [address] [place] [address] 03/31/2025 11:00 AM EST Office Visit [facility] 175 [facility] [address] [place] [address] Rocío Watkins, MARYELLEN [address] [place] [phone] documented as of this encounter Visit Diagnoses Not on filedocumented in this encounter Care Teams Sales Clerk Relationship Specialty Start Date End Date Nori Posey MD PCP - General 01/30/23 04/22/24 documented as of this encounter
--- NOTE | 2025-01-28 14:32 | MHC.OFFVIS ---
Vital Signs 01/28/25 14:40 Height 5 ft 5 in Weight 218 lb BMI 36.3 BP 114/78 Blood Pressure Location Rt brachial Position Sitting Pulse 86 Pulse Source Pulse Oximeter Pulse Oximetry (%) 97 Oxygen Delivery Method Room Air Intake Visit Reasons: S/P EGD Rich Intake Note: ESTABLISHED PATIENT for mgmt of GERD, Gastroparesis, abd pain. Recently seen through [facility]; C.O. chronic sx persistence despite current therapies. Pt states that she recently spent a total of 14 days between [facility] + [facility]. Will obtain notes from both stays. Information Services Vice President Required: No Accompanied by: Self / Same As Patient Allergies propofol Allergy (Intermediate, Verified 03/11/25 15:21) Itching morphine Allergy (Mild, Verified 03/11/25 15:21) Itching HPI HPI S/P EGD Rich: Details: LAST VISIT Hiatal hernia GERD (gastroesophageal reflux disease) IBS (irritable bowel syndrome) Chronic idiopathic constipation ESPINAL (nonalcoholic steatohepatitis) Hepatomegaly Transaminitis Plan Will increase Linzess to 145 mcg daily. Increase fluid intake and activity to promote better bowel motility. Referral to bariatric surgery for hiatal hernia repair. Patient was encouraged to avoid dietary triggers and late night snacking. Staying upright for minimum 3 hours after meals discussed with patient. Patient will follow-up in 4 months, sooner on as needed basis. She is agreeable to this plan and verbalizes understanding of instructions. She was given the opportunity to ask questions and all questions answered. ? Thank you for allowing me to participate in her care Referrals Bariatric Surgery Referral K44.9 New linaclotide (Linzess) 145 mcg PO DAILY 30 caps 4RF K59.04 Discontinued linaclotide Discontinued Reason: Doctor's Order 72 mcg PO DAILY 30 caps 2RF TODAY'S VISIT Patient is here today for follow-up. Patient reports that she was hospitalized at [facility] in [place]. Patient seen GI specialist for possible motility issue after being diagnosed with moderate is gastroparesis. Patient reported to MD that she was hardly eating anything and was admitted. Originally they were going to order J-tube for patient, however hospitalist team did not agreed with the recommendation and patient never went through with the procedure. Patient was complaining of severe epigastric pain and the only thing that would help was opioids. Patient was there for 14 days. Patient was seen by GI, almost every day, patient was off her psych eval, however patient has a psychologist and therapist and also is on medications to help with PTSD. Patient sign out AMA. Patient was seen in the ED at [facility] several times after being discharged complaining of inability to eat or drink. Severe epigastric pain nausea and vomiting. Patient takes Reglan as needed and if that does not help she will take Zofran. Patient reports that she has appointment in January back in [place] again with the team. Patient is hoping that she will get some answers [facility] Medical History (Updated 03/11/25 @ 19:57 by Ximena Valdes, [facility]) Gastroparesis History of lumbar puncture (06/13/23) Seizures Postprocedural seroma of skin and subcutaneous tissue following other procedure Colostomy in place Hx of flexible sigmoidoscopy (07/26/24) Proctosigmoiditis Stricture of sigmoid colon Colon wall thickening Obesity, Class II, BMI 35-39.9 IBS (irritable bowel syndrome) History of colitis Gastric ulcer Interstitial cystitis Occipital neuralgia of right side History of suicidal ideation Anxiety Agoraphobia MDD (major depressive disorder) PTSD (post-traumatic stress disorder) Surgical History Hx of History of colon surgery (08/12/24) History of tonsillectomy and adenoidectomy Hx of appendectomy H/O endoscopy (12/09/24) Hx of colonoscopy Hx of section H/O: hysterectomy Hx of cholecystectomy (~12/2022) Family History Father Prostate cancer Maternal Uncle Colon cancer Maternal Grandmother Breast cancer Social History Household Members: Spouse Housing: House Do you presently have visiting nurse or other home services: No Alcohol intake: never 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 Patient Tobacco Use Status: Former Tobacco user e-Cigarette/Vaping Use: Never Used Second Hand Smoke Exposure: No Substance Use Type: Marijuana Advance Directives Date on File: 01/25/25 service: No Physical Exam Vital Signs: Last Vital Signs Pulse 86 01/28/25 14:40 BP 114/78 01/28/25 14:40 Pulse Ox 97 01/28/25 14:40 Oxygen Delivery Method Room Air 01/28/25 14:40 BMI result Body Mass Index 36.3 Assessment & Plan Assessment & Plan (1) Intractable vomiting: Code(s): R11.10 - Vomiting, unspecified Category: Medical (2) Gastroenteritis: Code(s): K52.9 - Noninfective gastroenteritis and colitis, unspecified Category: Medical (3) Colitis: Code(s): K52.9 - Noninfective gastroenteritis and colitis, unspecified Category: Medical (4) History of colitis: Code(s): Z87.19 - Personal history of other diseases of the digestive system Category: Medical (5) S/P colostomy: Code(s): Z93.3 - Colostomy status Category: Medical (6) Gastroparesis: Code(s): K31.84 - Gastroparesis Category: Medical Plan Patient will follow-up with bed is well in January. In the meantime patient will take Reglan as needed. May use Compazine suppository if needed. Take Motegrity daily. Discussed with patient avoiding dietary triggers and late night snacking. Staying upright for minimum 3 hours after meals discussed with patient. Patient was encouraged to eat smaller meals and more often. Gastroparesis diet discussed. Patient will follow-up in 2 months. She will call us if she will have any GI concerning symptoms. Increase sucralfate to 3 times a day and space out in between meds to make sure that there is no reaction. Patient is agreeable to current plan of care and verbalizes understanding of instructions. She was given the opportunity to ask questions and all questions answered. Thank you for allowing me to participate in her care Records from [facility] reviewed as well as records from visits to ED Medications: Changed From sucralfate 1 g PO BID 60 tabs 3RF K52.9 - Noninfective gastroenteritis and colitis, unspecified To sucralfate 1 g PO TID 90 tabs 3RF K52.9 - Noninfective gastroenteritis and colitis, unspecified Coding Level of Care Code Est Pt Level 4 (55106) Add On Problem Visit Only Diagnoses Intractable vomiting R11.10 Gastroenteritis K52.9 Colitis K52.9 History of colitis Z87.19 S/P colostomy Z93.3 Gastroparesis K31.84 Time Spent (min) 45 Comment 25 minutes spent with patient and additional 20 minutes spent reviewing her records
[2025-01-28 14:40] VITALS: BP 114/78; PULSE 86; O2SAT 97; BMI 36.3
--- OUTSIDE RECORDS SUMMARY | 2025-01-28 18:29 | XMS_ITS | Clinical Summary ---
Author Organization [facility] Address [address] [place] [address] Care Team Providers Care Client Architect Name Role Phone Nori Posey MD Primary Care Provider [phone] Allergies Active Allergy Reactions Criticality Noted Date Comments [place] 08/30/2023 Medications Medication Sig Dispensed Refills Start [...] age to complete this topic Care Teams Client Architect Relationship Specialty Start Date End Date Nori Posey MD [address] [place] [id number] PCP - General Internal Medicine 08/01/23
--- OUTSIDE RECORDS SUMMARY | 2025-01-28 18:29 | XMS_ITS | Clinical Summary ---
Author Organization 175 [facility] Address [address] [place] [address] Phone Care Team Providers Care Fleet Salesperson Name Role Phone Janet Harding MD Primary Care Provider [phone] Allergies Active Allergy Reactions Criticality Noted Date [...] Noted Date Diagnosed Date Colostomy in place ([facility] V24, [facility] V28) Class 1 obesity 11/24/2024 Internal hemorrhoid [...] AM EDT Office [address] Internal Medicine [address] [place] [phone] Duy Lund NP Hospital discharge follow-up (Primary Dx) 01/12/2025 [facility] [address] [place] [phone] Janet Harding MD 01/05/2025 Telephone Internal Medicine - [facility] [address] [place] [address] Janet Harding MD 11/25/2024 2:40 PM EDT Consult Gastroenterology - [address] [phone] Julian Sanchez MD Slow transit constipation (Primary Dx); Gastroparesis 2024 Telephone Internal Medicine - [facility] [address] [place] [address] Janet Harding MD 10/29/2024 8:36 AM EDT - 10/29/2024 11:59 PM EDT Hospital Encounter [facility] MRI [address] [place] [phone] Gait abnormality; Migraine without status migrainosus, not intractable, unspecified migraine type Discharge Disposition: Home or Self Care 10/29/2024 8:29 AM EDT - 10/29/2024 11:59 PM EDT Hospital Encounter [facility] MRI [address] [place] [phone] Gait abnormality; Migraine without status migrainosus, not intractable, unspecified migraine type Discharge Disposition: Home or Self Care from Last 3 Months Immunizations Immunization Administration Dates Next Due Tdap Tetanus diptheria acell ular pertussis (Boostrix; Adacel) 7yo and older 05/04/2023 Surgical History Surgery Date Site/Laterality Comments CHOLECYSTECTOMY PROCEDURE: [place] LAPAROSCOPY SURG CHOLECYSTECTOMY HYSTERECTOMY 2015 PROCEDURE: HISTORICAL [...] [facility] V24, [facility] V28) DX:Suicide and self-inflict ed injury ([facility]) Major depression, chronic DX:Percy or depression, chronic [...] DX:Guaiac positive stools Hematuria DX:Hematuria Uterine cancer ([facility]24, [facility] V28) 2014 DX:Uterine cancer ([facility]) Interstitial cystitis DX:Interst itial cystitis Herpes genitalis [...] AM EST Office Visit Internal Medicine - [facility] [address] [place] [address] Janet Harding MD [address] [place], [place] 03/31/2025 11:00 AM EST [facility] Visit [facility] [address] [place] [address] Rocío Watkins PA [address] [place] [address] Health Maintenance Due Date Last [...] Name Priority Date/Time Associated Diagnosis Comments EXTERNAL CT REPORT 01/27/2025 EXTERNAL ULTRASOUND REPORT 12/31/2024 EXTERNAL XRAY REPORT [...] Relevant to Health Maintenance Results * External CT Report (01/27/2025) Anatomical Region Laterality Modality Computed Tomogra phy us Provider [facility] IMG CT PROCEDURES Final Result * External Ultrasound Report (12/31/2024) Anatomical Region [...] Anatomical Region Laterality Modality Nuclear Medicine Provider [facility] IMG NM PROCEDURES Final [...] Signed Date: 10/29/2024 15:57 ET Workstation ID: [id number] Transcribed By: Self Edit Transcribed Date: 10/29/2024 [...] Signed Date: 10/29/2024 15:57 ET Workstation ID: [id number] Transcribed By: Self Edit Transcribed Date: 10/29/2024 15:48 ET us Yossi Marina MD IMG MRI PROCEDURES Final [...] Signed Date: 10/29/2024 16:00 ET Workstation ID: [id number] Transcribed By: Self Edit Transcribed Date: 10/29/2024 [...] Signed Date: 10/29/2024 16:00 ET Workstation ID: [id number] Transcribed By: Self Edit Transcribed Date: 10/29/2024 15:57 ET Yossi Marina MD IM MRI PROCEDURES Final Result * Depression Screening (05/04/2023) Depression Screening Abstracted Historical Provider HEALTH MAINTENANCE Final Result * JOE SCREENING DIGITAL (06/05/2022 11:27 AM EST) Anatomical Region Laterality Modality Mammography 06/05/2022 8:32 AM EST Narrative 06/05/2022 11:27 AM [facility] Diagnostic Imaging Department [address] [place] [phone] Patient: LUIS REDDPAULA /Age/Sex: 1980 - 41 - F Unit#: [id number] Location/Status: [facility] CLI Mnemonic/Ordering Site: [facility] Ordering Physician: VIDAL GARY DO [facility] Screening Digital - 06/05/22854 EXAM: [facility] Screening Digital EXAM DATE AND TIME: 06/05/2022 8:56 AM HISTORY: Screening. Baseline exam. Maternal grandmother had breast carcinoma. COMPARISON: No comparison imaging. TECHNIQUE: CC and MLO views of both breasts were obtained using full field digital mammography. Bilateral digital breast tomosynthesis was performed in the MLO projection. Computer aided detection with LocalCustomer 7.2-H and TxtFeedback 3D 3.1 was employed. TISSUE DENSITY: b. [...] Routine screening mammogram BILATERAL in 1 year. 15956, 02643 3341F, 7025F Dictating Physician: KIYA MYLES MD Electronically Signed by: KIYA MYLES MD Dic Date/Time: 06/05/22 1126 Sign date/Time: 06/05/22 1127 Procedure Note Kiya Myles MD - 05/04/2023 [facility] Diagnostic Imaging Department [address] [place] [phone] Patient: LUIS REDDPAULAO.B./Age/Sex: 1980 - 41 - F Unit#: [id number] Location/Status: [facility] Mnemonic/Ordering Site: [facility] Ordering Physician: VIDAL GARY DO [facility] Screening Digital - 06/05/22 - 08 EXAM: [facility] Screening Digital EXAM DATE AND TIME: 06/05/2022 8:56 AM HISTORY: Screening. Baseline exam. Maternal grandmother had breastcarcinoma. COMPARISON: No comparison imaging. TECHNIQUE: CC and MLO views of both breasts were obtained using fullfield digital mammography. Bilateral digital breast tomosynthesis was performedin the MLO projection. Computer aided detection with LocalCustomer 7.2-H andTxtFeedback 3D 3.1 was employed. TISSUE DENSITY: b. [...] Routine screening mammogram BILATERAL in 1 year. 19767, 58089 3341F, 7025F Dictating Physician: KIYA MYLES MD [...] [facility] Care Teams Fleet Salesperson Relationship Specialty Start Date End Date Janet Harding MD [address] [place] [phone] PCP - General Internal Medicine 08/04/24
== END 2025-01-28 15:15 | disposition home or self-care (01) ==
LOC: HO.HGI 14:18
PROVIDERS: PCP Internal Medicine; Visit Provider Nurse Practitioner Family
DX: R11.10 Vomiting, unspecified (principal); K52.9 Noninfective gastroenteritis and colitis, unspecified; Z87.19 Personal history of other diseases of the digestive system; Z93.3 Colostomy status; K31.84 Gastroparesis
CPT/HCPCS: 99214

== ENCOUNTER → 2025-01-28 14:18 | Outpatient (BNVA) | payer OTHER, SELFPAY | PROVIDERS: PCP Internal Medicine; Visit Provider Nurse Practitioner Family | DX: Z09 Encounter for follow-up examination after completed treatment for conditions other than malignant neoplasm (principal); K31.84 Gastroparesis; R11.10 Vomiting, unspecified; K52.9 Noninfective gastroenteritis and colitis, unspecified; Z93.3 Colostomy status; Z87.19 Personal history of other diseases of the digestive system | CPT/HCPCS: 99212 ==

== ENCOUNTER 2025-02-07 07:21 | Emergency (ER) | payer OTHER, SELFPAY ==
--- OUTSIDE RECORDS SUMMARY | 2024-01-02 09:45 | XMS_ITS | Encounter Summary ---
Author Organization [employer] Address [address] [place] [address] Care Team Providers Care Prototype Model Maker Name Role Phone Nori Posey MD Primary Care Provider +1 -[phone] Encounter Details Date Type Department Care Team (Late st Contact Info) Description 01/02/2024 10:45 AM EDT Hospital Encounter TH HISTORIC ENCOUNTERS EASTERN CONVERSION ONLY Yossi Marina MD [address] [place] [address] Social History Tobacco Use Types Packs/Day Years [...] 3:17 PM EDT Nadia Wolfe RN * [place] Suicide Severity Rating Scale (Screener/Recent Self-Report) Question [...] home since Sunday. Still has a black [place] in visual field of L eye. Still [...] ambulation ?? 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 The majority of the actual msfq-li-uwsq visit was spent counseling the patient with respect to the current neurological picture. Yossi Marina MD documented in this encounter Plan of Treatment Upcoming Encounters Date Type Department Care Team (Late st Contact Info) Description 03/24/2025 11:30 AM EST Office Visit Internal Medicine - [address] [place] [phone] Janet Harding MD [address] [place] [address] 03/31/2025 11:00 AM EST Office Visit [facility] 175 [facility] [address] [place] [address] Rocío Watkins, MARYELLEN [address] [place] [phone] documented as of this encounter Visit Diagnoses Not on filedocumented in this encounter Care Teams Prototype Model Maker Relationship Specialty Start Date End Date Nori Posey MD PCP - General 01/30/23 04/22/24 documented as of this encounter
[2025-02-07 07:31] VITALS: BP 116/58; PULSE 81; RESP 17; TEMP 36.3; O2SAT 96; BMI 39.4
--- OUTSIDE RECORDS SUMMARY | 2025-02-07 07:46 | XMS_ITS | Clinical Summary ---
Author Organization [address] [facility] Address [address] [place] [address] Phone Care Team Providers Care Visual Merchandising Specialist Name Role Phone Janet Harding MD Primary Care Provider [phone] Allergies Active Allergy Reactions Criticality Noted Date [...] Noted Date Diagnosed Date Colostomy in place ([facility] V24, [facility] V28) Class [...] AM EDT Office Visit Internal Medicine - [address] [place] [phone] Duy Lund NP Hospital discharge follow-up (Primary Dx) 01/12/2025 [facility] [address] [place] [phone] Janet Harding MD 01/05/2025 Telephone Internal Medicine - [facility] [address] [place], [place] [phone] Janet Harding MD 11/25/2024 2:40 PM EDT Consult Gastroenterology - [address] [place] [address] Julian Sanchez MD Slow transit constipation (Primary Dx); Gastroparesis from Last 3 Months Immunizations Immunization Administration Dates Next Due Tdap Tetanus diptheria acell ular pertussis (Boostrix; Adacel) 7yo and older 05/04/2023 Surgical History Surgery Date Site/Laterality Comments CHOLECYSTECTOMY PROCEDURE: [place] LAPAROSCOPY SURG CHOLECYSTECTOMY HYSTERECTOMY 2014 PROCEDURE: HISTORICAL [...] stress disorder) Suicide and self-inflicted i njury ([facility] V24, [facility] V28) DX:Suicide and self-inflict ed injury (HCC) [...] DX:Guaiac positive stools Hematuria DX:Hematuria Uterine cancer ([facility] V24, [facility] V28) 2014 DX:Uterine cancer ([facility] [...] AM EST [facility] [address] [place], [place] [phone] Janet Harding MD [address] [place], [place] 03/31/2025 11:00 AM EST Office Visit [facility] [address] [place] [address] Rocío Watkins PA [address] [place] [address] Health Maintenance Due Date Last [...] LAB 12/08/2024 EXTERNAL NUC MED REPORT 11/12/2024 DEPRESSION SCREENING Routine 05/04/2023 TAY SCREENING DIGITAL [...] Onbase IMG NM PROCEDURES Final Result * Depression Screening (05/04/2023) Depression Screening Abstracted us [facility] Provider HEALTH MAINTENANCE Final Result * TAY SCREENING DIGITAL (06/05/2022 11:27 AM EST) Anatomical Region Laterality Modality Mammography 06/05/2022 8:32 AM EST Narrative 06/05/2022 11:27 AM EST [facility] Diagnostic Imaging Department [address] [place] [address] [phone] Patient: POLLO JULESE /Age/Sex: 1980 - 41 - F Unit#: [id number] Location/Status: [facility]/REG CLI [facility] Physician: VIDAL SOLIZ DO [facility] Screening Digital - 06/05/22 - 854 EXAM: [facility] Screening Digital EXAM DATE AND TIME: 06/05/2022 8:56 AM HISTORY: Screening. Baseline exam. Maternal grandmother had breast carcinoma. COMPARISON: No comparison imaging. TECHNIQUE: CC and MLO views of both breasts were obtained using full field digital mammography. Bilateral digital breast tomosynthesis was performed in the MLO projection. Computer aided detection with ScaleIO 7.2-H and StyleChat by ProSent Mobile 3D 3.1 was employed. TISSUE DENSITY: b. [...] Routine screening mammogram BILATERAL in 1 year. 14601, 82869 3341F, 7025F Dictating Physician: KIYA MYLES MD Electronically Signed by: KIYA MYLES MD Dic Date/Time: 06/05/22 1126 Sign date/Time: 06/05/22 1127 Procedure Note Kiya Myles MD - 05/04/2023 [facility] Diagnostic Imaging Department [address] [place] [phone] Patient: SMITH PAULA REDD /Age/Sex: 1980 - 41 - F Unit#: [id number] Location/Status: SPDIMAM/REG CLI Mnemonic/Ordering Site: [facility] Ordering Physician: VIDAL SOLIZ DO [facility] Screening Digital - 06/05/22 - 854 EXAM: [facility] Screening Digital EXAM DATE AND TIME: 06/05/2022 8:56 AM HISTORY: Screening. Baseline exam. Maternal grandmother had breastcarcinoma. COMPARISON: No comparison imaging. TECHNIQUE: CC and MLO views of both breasts were obtained using fullfield digital mammography. Bilateral digital breast tomosynthesis was performedin the MLO projection. Computer aided detection with ScaleIO 7.2-H andStyleChat by ProSent Mobile 3D 3.1 was employed. TISSUE DENSITY: b. [...] Routine screening mammogram BILATERAL in 1 year. 98436, 26994 3341F, 7056F Dictating Physician: KIYA MYLES MD Electronically Signed by: KIYA MYLES MD Dic Date/Time: 06/05/22 1126 Sign date/Time: 06/05/22 1127 Vidal Aranzataye DO IMG BI PROCEDURES Final Result * Hm Hepatitis C Screening (03/06/2022) Hepatitis C Screening [...] Most Recently Relevant to Health Maintenance Insurance [facility] PL[facility] Care Teams Visual Merchandising Specialist Relationship Specialty Start Date End Date Janet Harding MD [address] [place] [address] PCP - General Internal Medicine 08/04/24
--- OUTSIDE RECORDS SUMMARY | 2025-02-07 07:46 | XMS_ITS | Clinical Summary ---
Author Organization [facility] Address [address] [place] [address] Care Team Providers Care Filter Operator Name Role Phone Nori Posey MD Primary Care Provider [phone] Allergies Active Allergy Reactions Criticality Noted Date Comments [facility] 08/30/2023 Medications Medication Sig Dispensed Refills Start [...] age to complete this topic Care Teams Filter Operator Relationship Specialty Start Date End Date Nori Posey MD [address] [place] [address] PCP - General Internal Medicine 08/01/23
[2025-02-07 08:00] VITALS: BP 116/58; PULSE 81; RESP 17; TEMP 36.3; O2SAT 96
[2025-02-07 08:30] LABS: MANUAL DIFF FLAG NO
[2025-02-07 08:37] LABS: Hematocrit 38.4 % (37.0-47.0); Hemoglobin 12.6 g/dl (12.0-16.0); Imm Gran Abs Auto 0.02 X10*3/uL (0.00-0.03); Imm Gran Pct Auto 0.3 % (0.0-0.4); Lymphocytes Absolute Auto 2.6 X10*3/uL (1.2-4.9); Mean Corpuscular HGB Conc 32.8 g/dl (31.0-35.0); Mean Corpuscular Hemoglobin 26.8 pg (27.0-33.0); Mean Corpuscular Volume 81.7 fL (80.0-98.0); NRBC Abs Auto 0.000 X10*3/uL (0.0-0.012); NRBC Pct Auto 0.0 /100WBC (0.0-0.2); Platelet Count 346 X10*3/uL (160-400); Red Blood Count 4.70 X10*6/uL (4.20-5.50); White Blood Count 6.7 X10*3/uL (4.8-10.8)
[2025-02-07 08:56] LABS: Alanine Aminotransferase 16 U/L (0-31); Albumin Level 4.1 g/dL (3.5-5.0); Alkaline Phosphatase 86 U/L (39-117); Anion Gap 15 (12-20); Aspartate Amino Transferase 19 U/L (5-31); Blood Urea Nitrogen 12 mg/dL (9-16); Calcium 9.1 mg/dL (8.4-10.2); Carbon Dioxide 22 mmol/L (22-29); Chloride 107 mmol/L (96-108); Creatinine Clr Calc Pharmacy 124.5; Estimated Glomerular Filt Rate > 60; Lipase 21 U/L (8-78); Potassium 3.7 mmol/L (3.3-5.1); Sodium 140 mmol/L (135-145); Total Protein 7.4 g/dL (6.5-8.0)
--- NOTE | 2025-02-07 09:07 | ED.GENADULT ---
HPI - General Adult General Chief complaint: Abdominal Pain Stated complaint: abd pain Time Seen by Provider: 02/07/25 09:06 Source: patient, RN notes reviewed and old records reviewed Mode of arrival: ambulatory Limitations: no limitations History of Present Illness ED Provider: DAVID Lewis HPI narrative: 44-year-old female with medical history of gastroparesis, colitis, s/p colostomy with Dr. Allen on 08/12/2024 presents to the ED due to 3 days of diffuse abdominal pain, nausea, sensation of fullness, with changed output of her ostomy bag. Patient states she woke up 3 days ago feeling fine, with diffuse abdominal pain progressing throughout the day, and then noticed ?pebble like? fecal matter of her ostomy bag that is very concerning to her. Patient reports she has been passing flatus from her bag as she has been burping the ostomy bag. Patient states she takes Dulcolax only when needed, and took a dose this morning. Patient has extensive GI history, and follows [facility]. Patient had appointment with GI 2 weeks ago, and is awaiting evaluation and [place] for placement of a gastric stimulator for her gastroparesis. Denies vomiting, black/tarry stool, headaches, visual changes, fevers, chills, decreased ostomy output, lightheadedness, dizziness, weakness MD complaint: Abdominal pain, changed output of ostomy bag Related Data Home Medications ?Medication ?Instructions ?Recorded ?Confirmed lamotrigine 200 mg tablet 200 mg PO DAILY 01/02/23 12/29/24 valacyclovir 500 mg tablet 500 mg PO DAILY 01/02/23 12/29/24 vortioxetine 20 mg tablet 20 mg PO DAILY 01/02/23 12/29/24 (Trintellix) hydroxyzine HCl 25 mg tablet 25 mg PO BEDTIME 01/08/24 12/29/24 lamotrigine 25 mg tablet 50 mg PO BEDTIME 01/08/24 12/29/24 bisacodyl 5 mg tablet,delayed 10 mg PO BEDTIME 07/25/24 12/29/24 release mirabegron 50 mg tablet,extended 50 mg PO DAILY 07/25/24 12/29/24 release 24 hr (Myrbetriq) eszopiclone 3 mg tablet (Lunesta) 3 mg PO BEDTIME 08/06/24 12/29/24 clonazepam 1 mg disintegrating 1 mg PO TID 12/08/24 12/29/24 tablet pantoprazole 40 mg tablet,delayed 40 mg PO DAILY@0630 12/08/24 12/29/24 release magnesium oxide 400 mg PO DAILY 12/21/24 12/29/24 prucalopride 2 mg tablet 2 mg PO DAILY 12/21/24 12/29/24 (Motegrity) promethazine 12.5 mg rectal mg ME PRN Motion Sickness/Allergies 12/29/24 suppository famotidine 20 mg tablet 20 mg PO BID 01/28/25 Previous Rx's ?Medication ?Instructions ?Recorded cholecalciferol (vitamin D3) 125 125 mcg PO DAILY #90 caps 05/30/24 mcg (5,000 unit) capsule docusate sodium 100 mg capsule 100 mg PO BID #60 caps 08/20/24 (Colace) metoclopramide HCl 5 mg tablet 5 mg PO Q8H PRN nausea and 11/13/24 vomiting #20 tabs erythromycin ethylsuccinate 200 400 mg (10 mL) PO Q8H 14 days #420 01/01/25 mg/5 mL oral powder for suspension mL metoclopramide HCl 10 mg tablet 10 mg PO Q6H 7 days #28 tabs 01/01/25 (Reglan) hydrocortisone 2.5 % topical cream 1 appl topical BID PRN pain #28 01/02/25 grams srejcl-hioviyrm-auzgcvg(pork)12,000-38,000-60,000 1 cap PO QID #120 caps 01/27/25 unit capsule,del rel (Creon) ondansetron 4 mg disintegrating 4 mg PO Q8H PRN nausea and 01/27/25 tablet vomiting #30 tabs oxycodone 10 mg tablet 10 mg PO Q8H PRN severe pain 01/27/25 (scale score 7-10) #12 tabs sucralfate 1 gram tablet 1 g PO TID #90 tabs 01/28/25 Allergies Allergy/AdvReac Type Severity Reaction Status Date / Time propofol Allergy Intermediate Itching Verified 02/07/25 07:34 morphine Allergy Mild Itching Verified 02/07/25 07:34 [facility] Past Medical History Medical History Gastroparesis History of lumbar puncture (06/13/23) Seizures Postprocedural seroma of skin and subcutaneous tissue following other procedure Colostomy in place Hx of flexible sigmoidoscopy (07/26/24) Proctosigmoiditis Stricture of sigmoid colon Colon wall thickening Obesity, Class II, BMI 35-39.9 IBS (irritable bowel syndrome) History of colitis Gastric ulcer Interstitial cystitis Occipital neuralgia of right side History of suicidal ideation Anxiety Agoraphobia MDD (major depressive disorder) PTSD (post-traumatic stress disorder) Surgical History Hx of History of colon surgery (08/12/24) History of tonsillectomy and adenoidectomy Hx of appendectomy H/O endoscopy (12/09/24) Hx of colonoscopy Hx of section H/O: hysterectomy Hx of cholecystectomy (~12/2022) Family History Family History Father Prostate cancer Maternal Uncle Colon cancer Maternal Grandmother Breast cancer Social History Social History Household Members: Spouse Housing: House Do you presently have visiting nurse or other home services: No Alcohol intake: never 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 Patient Tobacco Use Status: Former Tobacco user Smoked in Last 30 Days: No e-Cigarette/Vaping Use: Never Used Second Hand Smoke Exposure: No Use of substances other than those prescribed or required for medical reasons: Yes Substance Use Type: Marijuana Substance Use Frequency: Daily Advance Directives: Yes Advance Directives on File: Yes Advance Directives Date on File: 01/25/25 Patient : No service: No Physical Exam ED Vital Signs: Vital Signs - 24 hr 02/07/25 07:31 02/07/25 08:00 02/07/25 11:50 Temperature 97.3 F 97.3 F 97.3 F Pulse Rate 81 81 74 Respiratory Rate 17 17 16 Blood Pressure 116/58 L 116/58 L 102/58 L Pulse Oximetry 96 96 96 Oxygen Delivery Method Room Air Room Air Room Air 02/07/25 12:12 Temperature 97.9 F Pulse Rate 70 Respiratory Rate Blood Pressure 103/57 L Pulse Oximetry 94 Oxygen Delivery Method Room Air BMI result Body Mass Index 39.4 GENERAL APPEARANCE: ?AxOx4, nontoxic appearing, no acute distress. HEENT: ?NC, AT. MMM. EOMI, clear conjunctiva, oropharynx clear. NECK: ?Supple without lymphadenopathy.? No stiffness or restricted ROM. HEART:? Normal rate and regular rhythm, normal S1/S2, no m/r/g LUNGS:? CTAB, moving air well. No crackles or wheezes are heard. ABDOMEN: ?Soft, nondistended, no rigidity, no guarding, diffuse tenderness of entire abdomen, no overlying skin changes or rashes. Patient has ostomy bag attached to the left side of the abdomen, with adequate output, there is appropriately brown colored liquid stool, with several great sized charmaine like fecal matter throughout the bag, stool is not dark or tarry, no evidence of blood BACK: No CVAT, no obvious deformity. EXTREMITIES: ?Without cyanosis, clubbing or edema. NEUROLOGICAL: ?Grossly nonfocal. Alert and oriented, moving all 4 extremities. Skin: ?Warm and dry without any rash. Medications Administered Discontinued Medications Generic Name Dose Route Start Last Admin Trade Name Jasonq PRN Reason Stop Dose Admin Dicyclomine HCl 10 mg 02/07/25 09:30 02/07/25 09:43 Dicyclomine Hcl 10 Mg Capsule PO 02/07/25 09:31 10 mg ONCE ONE Administration Diphenhydramine HCl 25 mg 02/07/25 09:25 02/07/25 09:43 Diphenhydramine Hcl 50 Mg/Ml Vial IVPUSH 02/07/25 09:26 25 mg ONCE ONE Administration Hydromorphone HCl 1 mg 02/07/25 09:25 02/07/25 09:43 Hydromorphone Hcl 1 Mg/Ml Syringe IVPUSH 02/07/25 09:26 1 mg ONCE ONE Administration Protocol Hydromorphone HCl 1 mg 02/07/25 11:59 02/07/25 12:38 Hydromorphone Hcl 1 Mg/Ml Syringe IVPUSH 02/07/25 12:00 1 mg ONCE ONE Administration Protocol Lactated Ringer's 1,000 mls @ 999 mls/hr 02/07/25 12:33 02/07/25 13:32 Lr IV 02/07/25 13:33 Infused .Q1H1M ONE Infusion Metoclopramide HCl 10 mg 02/07/25 09:25 02/07/25 09:43 Metoclopramide Hcl 10 Mg/2 Ml Vial IVPUSH 02/07/25 09:26 10 mg ONCE ONE Administration Medical Decision Making Medical Decision Making [facility] Narrative: 44-year-old female with medical history of gastroparesis, colitis, s/p colostomy with Dr. Allen on 08/12/2024 presents to the ED due to 3 days of diffuse abdominal pain, nausea, sensation of fullness, with pebble like output of her ostomy bag that is concerning for her. Patient has extensive GI history, and follows [facility] and is awaiting evaluation and [place] for placement of gastric stimulator for gastroparesis. VS on initial observation-BP 116/58, pulse rate of 81, respiratory rate of 17, afebrile with oral temp of 97.3?, O2 saturation 96% on room air. On physical exam abdomen is Soft, nondistended, no rigidity, no guarding, diffuse tenderness of entire abdomen, no overlying skin changes or rashes. Patient has ostomy bag attached to the left side of the abdomen, with adequate output, there is appropriately brown colored liquid stool, with several great sized charmaine like fecal matter throughout the bag, stool is not dark or tarry, no evidence of blood Labs without leukocytosis/leukopenia, no evidence of anemia, H&H stable, no electrolyte abnormalities, lipase WNL, LFTs WNL. Viral serology negative. On chart review, patient has been seen 13 times in the department for abdominal pain since 08/21/2024. Patient had recent CT abdomen and pelvis on 12/21/2024, abdominal ultrasound on 12/22/2024, KUB on 12/29/2024, CT of abdomen and pelvis on 01/04/2025, and CTA abdomen and pelvis on 01/27/2025 all with negative findings. Patient presents with 3 days of diffuse abdominal pain, with a sensation of fullness, and pebble like fecal matter from ostomy bag. This is most likely constipation causing her symptoms no indication for advanced imaging today. I spoke with drill rig operator Dr. Valdes on management of the patient who recommends patient use MiraLax 2-3 times per day, with follow up in office as outpatient. Patient is awaiting to be evaluated in [place] for placement of gastric stimulator for management of gastroparesis. I discussed this with the patient who feels comfortable to go home for self-care, and is in agreement with the plan. Differential Diagnosis Differential Diagnoses: The differential diagnosis associated with the presentation includes Gastroparesis Acute on chronic abdominal pain Constipation Electrolyte abnormality Admission/Observation Consideration of admission/observation: Escalation of care including admission/observation considered Lab Data MDM Lab Attestation statement: I reviewed the patient's lab results. 02/07/25 08:25 02/07/25 08:25 Labs: Lab Results 02/07/25 02/07/25 02/07/25 Range/Units 08: 08: 09:36 WBC 6.7 (4.8-10.8) X10*3/uL RBC 4.70 (4.20-5.50) X10*6/uL Hgb 12.6 (12.0-16.0) g/dl Hct 38.4 (37.0-47.0) % MCV 81.7 (80.0-98.0) fL MCH 26.8 L (27.0-33.0) pg MCHC 32.8 (31.0-35.0) g/dl RDW 14.6 (11.0-16.0) % Plt Count 346 (160-400) X10*3/uL MPV 9.8 (9.4-12.3) fL Immature Gran % (Auto) 0.3 (0.0-0.4) % Neut % (Auto) 52.4 (45-73) % Lymph % (Auto) 39.1 (20-40) % [place] % (Auto) 5.7 (2-11) % Eos % (Auto) 1.9 (0-4) % Baso % (Auto) 0.6 (0-2) % Lymph # (Auto) 2.6 (1.2-4.9) X10*3/uL [place] # (Auto) 0.4 (0.1-1.2) X10*3/uL Eos # (Auto) 0.1 (0.0-0.4) X10*3/uL Baso # (Auto) 0.0 (0.0-0.2) X10*3/uL Abs Immat Gran (auto) 0.02 (0.00-0.03) X10*3/uL Absolute Neuts (auto) 3.5 (2.0-8.3) x10*3/uL Absolute Nucleated RBC 0.000 (0.0-0.012) X10*3/uL Nucleated RBC % (auto) 0.0 (0.0-0.2) /100WBC Sodium 140 (135-145) mmol/L Potassium 3.7 (3.3-5.1) mmol/L Chloride 107 (96-108) mmol/L Carbon Dioxide 22 (22-29) mmol/L Anion Gap 15 (12-20) BUN 12 (9-16) mg/dL Creatinine 0.66 (0.5-1.4) mg/dL Estim Creat Clear Calc 124.5 Estimated GFR > 60 Random Glucose 92 (60-115) mg/dL Lactic Acid 1.5 (0.5-2.0) mmol/L Calcium 9.1 (8.4-10.2) mg/dL Total Bilirubin 0.2 (0.0-1.0) mg/dL Direct Bilirubin < 0.2 (0.0-0.5) mg/dL AST 19 (5-31) U/L ALT 16 (0-31) U/L Alkaline Phosphatase 86 (39-117) U/L Total Protein 7.4 (6.5-8.0) g/dL Albumin 4.1 (3.5-5.0) g/dL Lipase 21 20 (8-78) U/L COVID-19 (STEVEN) Negative (Negative) COVID-19 Clin Com See Note Influenza Type A (JAYME) Negative (Negative) Influenza Type B (JAYME) Negative (Negative) Influenza A & B Note See Note Independent Historian Clinical information obtained from an independent historian. History obtained from or confirmed by: Spouse (Significant other at bedside corroborating history) External Record Review External record reviewed: Inpatient record, Office record, Outpatient record, Prior outpatient labs and Prior outpatient radiology Chronic Conditions Patient?s care impacted by: Other (Gastroparesis, colitis, s/p colostomy) Discharge Plan Discharge Clinical Impression: Constipation Patient Disposition: Home, Self-Care Additional Instructions: You were evaluated in the ED today due to abdominal pain, sensation of fullness, and pebble like output from your ostomy bag. Your blood work was reassuring as you have no significant elevation or decrease in your white blood cell count indicative of infection, no evidence of anemia, in no electrolyte abnormalities. I spoke with GI Dr. Valdes who recommended MiraLax 3 times per day until ostomy output is fully liquid, and follow up outpatient in their office. You are being prescribed MiraLax, please take 1 pouch and mixed this into 8 oz of water 3 times daily. It is important that your mixing this medication and 8 oz of water only as if you mix this medication with more water, you will dilute the medication that will not work properly. Please take this medication until you notice output from your ostomy bag is clearly liquid. Please follow up with [facility] office this week. Please return to the emergency department if you experience fevers over 100.4?, worsening abdominal pain, worsening nausea, vomiting, decreased colostomy output, decreased gas from ostomy bag, evidence of blood/ black/tarry output from ostomy bag, or any new/worsening/concerning symptoms. Prescriptions: No Action metoclopramide HCl 5 mg tablet 5 mg PO Q8H PRN (Reason: nausea and vomiting) Qty: 20 0RF ondansetron 4 mg tablet,disintegrating 4 mg PO Q8H PRN (Reason: nausea and vomiting) Qty: 30 1RF Creon 12,000-38,000 -60,000 unit capsule,delayed release(DR/EC) 1 cap PO QID Qty: 120 0RF Rx Instructions: administer with meals and/or snacks -- MAX OF 4 CAPS PER DAY. valacyclovir 500 mg tablet 500 mg PO DAILY Trintellix 20 mg tablet 20 mg PO DAILY lamotrigine 200 mg tablet 200 mg PO DAILY Rx Instructions: 200mg in morning, 25mg at night lamotrigine 25 mg tablet 50 mg PO BEDTIME Rx Instructions: 200mg in morning, 25mg at night docusate sodium [Colace] 100 mg capsule 100 mg PO BID Qty: 60 3RF clonazepam 1 mg tablet,disintegrating 1 mg PO TID pantoprazole 40 mg tablet,delayed release (DR/EC) 40 mg PO DAILY@0630 prucalopride [Motegrity] 2 mg tablet 2 mg PO DAILY magnesium oxide 400 mg magnesium capsule 400 mg PO DAILY promethazine 12.5 mg suppository ME PRN (Reason: Motion Sickness/Allergies) erythromycin ethylsuccinate 200 mg/5 mL Suspension For Reconstitution 400 mg PO Q8H 14 Days Qty: 420 3RF metoclopramide HCl [Reglan] 10 mg tablet 10 mg PO Q6H 7 Days Qty: 28 0RF oxycodone 10 mg tablet 10 mg PO Q8H PRN (Reason: severe pain (scale score 7-10)) Qty: 12 0RF Rx Instructions: Partial Fill upon patient request. bisacodyl 5 mg tablet,delayed release (DR/EC) 10 mg PO BEDTIME mirabegron [Myrbetriq] 50 mg tablet extended release 24 hr 50 mg PO DAILY hydrocortisone 2.5 % cream 1 appl topical BID PRN (Reason: pain) Qty: 28 0RF hydroxyzine HCl 25 mg tablet 25 mg PO BEDTIME cholecalciferol (vitamin D3) 125 mcg (5,000 unit) capsule 125 mcg PO DAILY Qty: 90 3RF eszopiclone [Lunesta] 3 mg tablet 3 mg PO BEDTIME famotidine 20 mg tablet 20 mg PO BID sucralfate 1 gram tablet 1 g PO TID Qty: 90 3RF Patient Comments: pt takes with 8 ounces of water 1 hour before her other medications. Print Language: Estonian
[2025-02-07 10:05] LABS: Lipase 20 U/L (8-78)
[2025-02-07 10:11] LABS: COVID-19 Test Negative (Negative); IDNOW Serial# 55D5AD1C; IDNOW Serial# 58CA691E; Influenza B2 Negative (Negative)
[2025-02-07 11:50] VITALS: BP 102/58; PULSE 74; RESP 16; TEMP 36.3; O2SAT 96
--- NOTE | 2025-02-07 11:51 | PC.NURSE ---
A&O x 3 Patient presents to ED c/o ABD pain for about 3 days with accompanied nausea no vomiting, patient in contact with son who is sick with URI Pain rated 9/10. Denies c/p, sob, Patient has ostomy in place Patient reports stool being more formed then usual, denies diet changes IV 20G in [facility] VSS and up to date Provider in to see patient Plan of care on going
[2025-02-07 12:12] VITALS: BP 103/57; PULSE 70; TEMP 36.6; O2SAT 94
[2025-02-07] MEDS: Lactated Ringers 1,000 ML 999 ML IV (12:38)
[2025-02-07 15:10] VITALS: BP 103/57; PULSE 70; RESP 16; TEMP 36.6; O2SAT 94
== END 2025-02-07 15:11 | disposition home or self-care (01) ==
PROVIDERS: Emergency Provider Emergency Medicine Emergency Medical Services; PCP Internal Medicine
DX: K59.00 Constipation, unspecified (principal); Z93.3 Colostomy status; Z88.5 Allergy status to narcotic agent
CPT/HCPCS: 36415; 80048; 80076; 83605; 83690; 85025; 87502; 87635; 96361; 96374; 96375; 96376; 99284; 99285; J1171; J1200; J2765; J7120

== ENCOUNTER 2025-02-13 19:26 | Emergency (ER) | payer OTHER, SELFPAY ==
--- NOTE | 2025-02-13 19:43 | ED.GENADULT ---
HPI - General Adult General Chief complaint: General Medical Stated complaint: abd pain, diarrhea, headache, SOB Time Seen by Provider: 02/13/25 21:37 Source: patient, RN notes reviewed and old records reviewed Mode of arrival: ambulatory Limitations: no limitations History of Present Illness ED Provider: Mark VILLA narrative: 44-year-old female with a past medical history significant for gastroparesis, status post colostomy with Dr. Allen in July of this year, chronic abdominal pain presents for evaluation of abdominal pain. The patient reports diarrhea for the last 3 days. She reports diffuse abdominal pain, pins and needle sensation below her stoma. She denies any blood in stool. Denies any fevers or chills pain She complains of a headache, nausea the patient was seen here 6 days ago for a similar complaint I saw her 2 weeks before that for abdominal pain pain She reports that she has an appointment in [place] to see a GI specialist on February 27, 2 weeks from today No other complaints or concerns at this time Related Data Home Medications ?Medication ?Instructions ?Recorded ?Confirmed lamotrigine 200 mg tablet 200 mg PO DAILY 01/02/23 12/29/24 valacyclovir 500 mg tablet 500 mg PO DAILY 01/02/23 12/29/24 vortioxetine 20 mg tablet 20 mg PO DAILY 01/02/23 12/29/24 (Trintellix) hydroxyzine HCl 25 mg tablet 25 mg PO BEDTIME 01/08/24 12/29/24 lamotrigine 25 mg tablet 50 mg PO BEDTIME 01/08/24 12/29/24 bisacodyl 5 mg tablet,delayed 10 mg PO BEDTIME 07/25/24 12/29/24 release mirabegron 50 mg tablet,extended 50 mg PO DAILY 07/25/24 12/29/24 release 24 hr (Myrbetriq) eszopiclone 3 mg tablet (Lunesta) 3 mg PO BEDTIME 08/06/24 12/29/24 clonazepam 1 mg disintegrating 1 mg PO TID 12/08/24 12/29/24 tablet pantoprazole 40 mg tablet,delayed 40 mg PO DAILY@0630 12/08/24 12/29/24 release magnesium oxide 400 mg PO DAILY 12/21/24 12/29/24 prucalopride 2 mg tablet 2 mg PO DAILY 12/21/24 12/29/24 (Motegrity) promethazine 12.5 mg rectal mg AK PRN Motion Sickness/Allergies 12/29/24 suppository famotidine 20 mg tablet 20 mg PO BID 01/28/25 Previous Rx's ?Medication ?Instructions ?Recorded cholecalciferol (vitamin D3) 125 125 mcg PO DAILY #90 caps 05/30/24 mcg (5,000 unit) capsule docusate sodium 100 mg capsule 100 mg PO BID #60 caps 08/20/24 (Colace) metoclopramide HCl 5 mg tablet 5 mg PO Q8H PRN nausea and 11/13/24 vomiting #20 tabs erythromycin ethylsuccinate 200 400 mg (10 mL) PO Q8H 14 days #420 01/01/25 mg/5 mL oral powder for suspension mL metoclopramide HCl 10 mg tablet 10 mg PO Q6H 7 days #28 tabs 01/01/25 (Reglan) hydrocortisone 2.5 % topical cream 1 appl topical BID PRN pain #28 01/02/25 grams swctwj-pnejbtlg-eqdrraw(pork)12,000-38,000-60,000 1 cap PO QID #120 caps 01/27/25 unit capsule,del rel (Creon) ondansetron 4 mg disintegrating 4 mg PO Q8H PRN nausea and 01/27/25 tablet vomiting #30 tabs oxycodone 10 mg tablet 10 mg PO Q8H PRN severe pain 01/27/25 (scale score 7-10) #12 tabs sucralfate 1 gram tablet 1 g PO TID #90 tabs 01/28/25 Allergies Allergy/AdvReac Type Severity Reaction Status Date / Time propofol Allergy Intermediate Itching Verified 02/13/25 19:49 morphine Allergy Mild Itching Verified 02/13/25 19:49 Review of Systems Constitutional: Constitutional: Denies body ache(s), Denies chills, Denies fever(s) and Reports headache(s) Eyes: Eyes: Denies blurry vision ENT: Denies vertigo, Reports dizziness and Reports headache(s) Cardiovascular: Cardiovascular: Denies chest pain and Denies dyspnea on exertion Respiratory: Respiratory: Denies cough and Denies dyspnea on exertion Gastrointestinal: Gastrointestinal: Reports abdominal pain, Denies melena, Denies hematochezia, Reports diarrhea, Reports loose stools, Reports nausea and Reports vomiting Genitourinary: Genitourinary: Denies hematuria Musculoskeletal: Musculoskeletal: Denies back pain Integumentary/Breasts: Skin/Breast: Denies rash Neurologic: Denies vertigo, Reports dizziness and Reports headache(s) Psychiatric: Psychiatric: Denies anxiety [facility] Past Medical History Medical History Gastroparesis History of lumbar puncture (06/13/23) Seizures Postprocedural seroma of skin and subcutaneous tissue following other procedure Colostomy in place Hx of flexible sigmoidoscopy (07/26/24) Proctosigmoiditis Stricture of sigmoid colon Colon wall thickening Obesity, Class II, BMI 35-39.9 IBS (irritable bowel syndrome) History of colitis Gastric ulcer Interstitial cystitis Occipital neuralgia of right side History of suicidal ideation Anxiety Agoraphobia MDD (major depressive disorder) PTSD (post-traumatic stress disorder) Surgical History Hx of History of colon surgery (08/12/24) History of tonsillectomy and adenoidectomy Hx of appendectomy H/O endoscopy (12/09/24) Hx of colonoscopy Hx of section H/O: hysterectomy Hx of cholecystectomy (~12/2022) Family History Family History Father Prostate cancer Maternal Uncle Colon cancer Maternal Grandmother Breast cancer Social History Social History Household Members: Spouse Housing: House Do you presently have visiting nurse or other home services: No Alcohol intake: never 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 Patient Tobacco Use Status: Former Tobacco user Smoked in Last 30 Days: No e-Cigarette/Vaping Use: Never Used Second Hand Smoke Exposure: No Use of substances other than those prescribed or required for medical reasons: No Substance Use Type: Marijuana Advance Directives: Yes Advance Directives on File: Yes Advance Directives Date on File: 01/25/25 Patient : No service: No Physical Exam ED Vital Signs: Vital Signs - 24 hr 02/13/25 19:45 02/13/25 20:58 02/13/25 22:07 Temperature 98.5 F 98.5 F Pulse Rate 83 67 68 Respiratory Rate 20 18 12 Blood Pressure 120/63 112/60 112/60 Pulse Oximetry 97 95 96 Oxygen Delivery Method Room Air Room Air Room Air BMI result Body Mass Index 38.6 Const General: healthy appearing, comfortable, no acute distress, alert and awake Nutritional Appearance: well nourished Orientation/consciousness: patient oriented x3 HENMT Head: Yes normocephalic and Yes atraumatic Neck Neck: Yes full ROM Resp Effort & Inspection: normal respiratory effort, able to speak in complete sentences and not labored Cardio Rate: regular rate Rhythm: regular rhythm GI Other: Left lower quadrant ostomy present Inspection: No distended Palpation (GI): Soft to palpation, not firm, Tenderness to palpation present (GI) (Diffuse abdominal tenderness), no guarding and not rigid Skin General skin exam: elasticity normal Neuro General: patient oriented x3 Cranial nerves: Yes CN's II-XII intact bilaterally and Yes Bilaterally intact EOM present Cognition (Neuro): normal cognition Extrem Other: Moving all extremities well without any obvious deformities Course Course Course Narrative: This is a rapid medical exam performed by Sara Epstein NP: Additional HPI, ROS, PE not included below will be deferred to primary provider. Patient is a 44-year-old female with history of colitis, s/p colostomy, seizures, MDD, PTSD presenting with complaint of diarrhea x 3 days, pain under stoma which started today, pain with deep inspiration. Also has headache, generalized weakness, nausea and vomiting. Chills without fever. Upper abdominal bloating. Denies hematochezia or hematemesis. Plan: labs, UA, viral serology Medications Administered Discontinued Medications Generic Name Dose Route Start Last Admin Trade Name Freq PRN Reason Stop Dose Admin Diphenhydramine HCl 50 mg 02/13/25 21:56 02/13/25 22:08 Diphenhydramine Hcl 50 Mg/Ml Vial IM 02/13/25 21:57 50 mg ONCE ONE Administration Ketorolac Tromethamine 30 mg 02/13/25 21:56 02/13/25 22:08 Ketorolac Tromethamine 30 Mg/Ml Vial IM 02/13/25 21:57 30 mg ONCE ONE Administration Metoclopramide HCl 10 mg 02/13/25 21:56 02/13/25 22:09 Metoclopramide Hcl 10 Mg/2 Ml Vial IM 02/13/25 21:57 10 mg ONCE ONE Administration Medical Decision Making Medical Decision Making [facility] Narrative: 44-year-old female with a past medical history as above presents for evaluation of continued abdominal pain. The patient is seen by myself on 01/27/2025, GI was consulted who recommended a CT angiography to evaluate for SMA syndrome. This did not show any acute findings. The patient does suffer from chronic abdominal pain. She is not obstructive as she continues to have stool in her ostomy. She was seen here 6 days ago for abdominal pain with constipation. No imaging was obtained that time. She denies any fevers or chills. She does complain of a headache. The patient may have a viral illness contributing to her diarrhea, headache and abdominal pain. Though her vitals are stable, exam is reassuring. I do not see any indication for emergent imaging or admission at this time. The patient's renal function is within normal limits, her chloride is just barely above normal at 109 but otherwise electrolytes are within normal limits. The patient is still hydrating adequately. He has a appropriate GI follow up 2 weeks from today Differential Diagnosis Differential Diagnoses: The differential diagnosis associated with the presentation includes Abdominal pain Constipation Bowel obstruction Gastroenteritis Norovirus Admission/Observation Consideration of admission/observation: Escalation of care including admission/observation considered Lab Data [facility] Lab Attestation statement: I reviewed the patient's lab results. No leukocytosis or anemia. No significant electrolyte abnormalities warranting intervention. Renal function within normal limits. 02/13/25 20:05 02/13/25 20:05 Labs: Lab Results 02/13/25 Range/Units 20:05 WBC 8.5 (4.8-10.8) X10*3/uL RBC 4.95 (4.20-5.50) X10*6/uL Hgb 13.5 (12.0-16.0) g/dl Hct 40.3 (37.0-47.0) % MCV 81.4 (80.0-98.0) fL MCH 27.3 (27.0-33.0) pg MCHC 33.5 (31.0-35.0) g/dl RDW 14.2 (11.0-16.0) % Plt Count 421 H (160-400) X10*3/uL MPV 9.3 L (9.4-12.3) fL Immature Gran % (Auto) 0.2 (0.0-0.4) % Neut % (Auto) 54.3 (45-73) % Lymph % (Auto) 38.9 (20-40) % [place] % (Auto) 5.3 (2-11) % Eos % (Auto) 0.9 (0-4) % Baso % (Auto) 0.4 (0-2) % Lymph # (Auto) 3.3 (1.2-4.9) X10*3/uL [place] # (Auto) 0.5 (0.1-1.2) X10*3/uL Eos # (Auto) 0.1 (0.0-0.4) X10*3/uL Baso # (Auto) 0.0 (0.0-0.2) X10*3/uL Abs Immat Gran (auto) 0.02 (0.00-0.03) X10*3/uL Absolute Neuts (auto) 4.6 (2.0-8.3) x10*3/uL Absolute Nucleated RBC 0.000 (0.0-0.012) X10*3/uL Nucleated RBC % (auto) 0.0 (0.0-0.2) /100WBC Sodium 140 (135-145) mmol/L Potassium 3.8 (3.3-5.1) mmol/L Chloride 109 H (96-108) mmol/L Carbon Dioxide 22 (22-29) mmol/L Anion Gap 13 (12-20) BUN 9 (9-16) mg/dL Creatinine 0.76 (0.5-1.4) mg/dL Estim Creat Clear Calc 106.9 Estimated GFR > 60 Random Glucose 110 (60-115) mg/dL Calcium 9.6 (8.4-10.2) mg/dL Magnesium 2.1 (1.6-2.6) mg/dL Total Bilirubin 0.2 (0.0-1.0) mg/dL AST 24 (5-31) U/L ALT 23 (0-31) U/L Alkaline Phosphatase 103 (39-117) U/L Total Protein 8.1 H (6.5-8.0) g/dL Albumin 4.4 (3.5-5.0) g/dL Lipase 18 (8-78) U/L Influenza Type A (PCR) NEGATIVE (Negative) Influenza Type B (PCR) NEGATIVE (Negative) RSV RNA Qual (PCR) NEGATIVE (Negative) SARS-CoV-2 RNA (RT-PCR) NEGATIVE (Negative) Tests considered The following testing was considered but not selected: Consider CT scan of the abdomen pelvis but this was done recently and the patient has a reassuring exam, reassuring labs and normal vital signs Discharge Plan Discharge Clinical Impression: Abdominal pain Patient Disposition: Home, Self-Care Instructions: Abdominal Pain (ED) Additional Instructions: Your workup in the ER today was reassuring. Take your home medications as prescribed pain Follow up with your GI specialist as planned pain Return for new or worsening symptom Prescriptions: No Action metoclopramide HCl 5 mg tablet 5 mg PO Q8H PRN (Reason: nausea and vomiting) Qty: 20 0RF ondansetron 4 mg tablet,disintegrating 4 mg PO Q8H PRN (Reason: nausea and vomiting) Qty: 30 1RF Creon 12,000-38,000 -60,000 unit capsule,delayed release(DR/EC) 1 cap PO QID Qty: 120 0RF Rx Instructions: administer with meals and/or snacks -- MAX OF 4 CAPS PER DAY. valacyclovir 500 mg tablet 500 mg PO DAILY Trintellix 20 mg tablet 20 mg PO DAILY lamotrigine 200 mg tablet 200 mg PO DAILY Rx Instructions: 200mg in morning, 25mg at night lamotrigine 25 mg tablet 50 mg PO BEDTIME Rx Instructions: 200mg in morning, 25mg at night docusate sodium [Colace] 100 mg capsule 100 mg PO BID Qty: 60 3RF clonazepam 1 mg tablet,disintegrating 1 mg PO TID pantoprazole 40 mg tablet,delayed release (DR/EC) 40 mg PO DAILY@0630 prucalopride [Motegrity] 2 mg tablet 2 mg PO DAILY magnesium oxide 400 mg magnesium capsule 400 mg PO DAILY promethazine 12.5 mg suppository AK PRN (Reason: Motion Sickness/Allergies) erythromycin ethylsuccinate 200 mg/5 mL Suspension For Reconstitution 400 mg PO Q8H 14 Days Qty: 420 3RF metoclopramide HCl [Reglan] 10 mg tablet 10 mg PO Q6H 7 Days Qty: 28 0RF oxycodone 10 mg tablet 10 mg PO Q8H PRN (Reason: severe pain (scale score 7-10)) Qty: 12 0RF Rx Instructions: Partial Fill upon patient request. bisacodyl 5 mg tablet,delayed release (DR/EC) 10 mg PO BEDTIME mirabegron [Myrbetriq] 50 mg tablet extended release 24 hr 50 mg PO DAILY hydrocortisone 2.5 % cream 1 appl topical BID PRN (Reason: pain) Qty: 28 0RF hydroxyzine HCl 25 mg tablet 25 mg PO BEDTIME cholecalciferol (vitamin D3) 125 mcg (5,000 unit) capsule 125 mcg PO DAILY Qty: 90 3RF eszopiclone [Lunesta] 3 mg tablet 3 mg PO BEDTIME famotidine 20 mg tablet 20 mg PO BID sucralfate 1 gram tablet 1 g PO TID Qty: 90 3RF Patient Comments: pt takes with 8 ounces of water 1 hour before her other medications. Print Language: Kazakh
[2025-02-13 19:45] VITALS: BP 120/63; PULSE 83; RESP 20; TEMP 36.9; O2SAT 97; BMI 38.6
[2025-02-13 20:09] LABS: MANUAL DIFF FLAG NO
[2025-02-13 20:11] LABS: Hematocrit 40.3 % (37.0-47.0); Hemoglobin 13.5 g/dl (12.0-16.0); Imm Gran Abs Auto 0.02 X10*3/uL (0.00-0.03); Imm Gran Pct Auto 0.2 % (0.0-0.4); Lymphocytes Absolute Auto 3.3 X10*3/uL (1.2-4.9); Mean Corpuscular HGB Conc 33.5 g/dl (31.0-35.0); Mean Corpuscular Hemoglobin 27.3 pg (27.0-33.0); Mean Corpuscular Volume 81.4 fL (80.0-98.0); NRBC Abs Auto 0.000 X10*3/uL (0.0-0.012); NRBC Pct Auto 0.0 /100WBC (0.0-0.2); Platelet Count 421 X10*3/uL (160-400); Red Blood Count 4.95 X10*6/uL (4.20-5.50); White Blood Count 8.5 X10*3/uL (4.8-10.8)
[2025-02-13 20:26] LABS: Alanine Aminotransferase 23 U/L (0-31); Albumin Level 4.4 g/dL (3.5-5.0); Alkaline Phosphatase 103 U/L (39-117); Anion Gap 13 (12-20); Aspartate Amino Transferase 24 U/L (5-31); Blood Urea Nitrogen 9 mg/dL (9-16); Calcium 9.6 mg/dL (8.4-10.2); Carbon Dioxide 22 mmol/L (22-29); Chloride 109 mmol/L (96-108); Creatinine Clr Calc Pharmacy 106.9; Estimated Glomerular Filt Rate > 60; Lipase 18 U/L (8-78); Magnesium 2.1 mg/dL (1.6-2.6); Potassium 3.8 mmol/L (3.3-5.1); Sodium 140 mmol/L (135-145); Total Protein 8.1 g/dL (6.5-8.0)
[2025-02-13 20:46] LABS: Resp Syncy Virus RNA Qual PCR NEGATIVE (Negative); SARS COV2 PCR INHOUSE NEGATIVE (Negative)
[2025-02-13 20:58] VITALS: BP 112/60; PULSE 67; RESP 18; TEMP 36.9; O2SAT 95
[2025-02-13 22:07] VITALS: BP 112/60; PULSE 68; RESP 12; O2SAT 96
[2025-02-13 23:48] VITALS: BP 114/64; PULSE 70; RESP 12; TEMP 36.7; O2SAT 97
== END 2025-02-13 23:51 | disposition home or self-care (01) ==
PROVIDERS: Registered Nurse Emergency; Emergency Provider Student in an Organized Health Care Education/Training Program; PCP Internal Medicine
DX: R10.9 Unspecified abdominal pain (principal); R06.02 Shortness of breath; R19.7 Diarrhea, unspecified; R51.9 Headache, unspecified
CPT/HCPCS: 80053; 83690; 83735; 85025; 87637; 96372; 99284; J1200; J1885; J2765

== ENCOUNTER 2025-03-11 14:40 | Outpatient (AMB) | payer OTHER, SELFPAY ==
--- OUTSIDE RECORDS SUMMARY | 2024-01-02 09:45 | XMS_ITS | Encounter Summary ---
Author Organization [facility] Address [address] [place] [address] Care Team Providers Care Rebar Bender Name Role Phone Nori Posey MD Primary Care Provider [phone] Encounter Details Date Type Department Care Team (Late st Contact Info) Description 01/02/2024 10:45 AM EDT Hospital Encounter TH HISTORIC ENCOUNTERS EASTERN CONVERSION ONLY Yossi Marina MD [address] [place] [address] Social History Tobacco Use Types Packs/Day Years Used Date Smoking Tobacco: Never Smokeless Tobacco: Never Alcohol Use Standard Drinks/Week Comments Not Currently 0 (1 standard drink = 0.6 oz pur e alcohol) Comments No Sex and Gender Information Value Date Recorded Sex Assigned at Not on file Legal Sex Female 4:39 AM EST Gender Identity Not on file Sexual Orientation Not on file documented as of this encounter Last Filed Vital Signs Vital Sign Reading Time Taken Comments Blood Pressure 119/83 01/02/2024 11:11 AM EDT Sitting Left arm Pulse 98 01/02/2024 11:11 AM EDT Temperature - - Respiratory Rate - - Oxygen Saturation - - Inhaled Oxygen Concentration - - Weight 95.3 kg (210 lb) 10/16/2023 8:03 AM EDT Height 160 cm (5' 3 ) 10/16/2023 8:03 AM EDT Body Mass Index 37.2 10/16/2023 8:03 AM EDT documented in this encounter Functional Status * Calculated C-SSRS Risk Score (Lifetime/Recent) Answer Date of Assessment Author No Risk Indicated 09/19/2024 3:17 PM EDT Nadia Wolfe RN * [place] Suicide Severity Rating Scale (Screener/Recent Self-Report) Question Answer Date of Assessment Author 1. Wish to be (Past 1 Month) No 025 3:17 PM EDT Nadia Wolfe RN 2. Non-Specific Active Suici ben Thoughts (Past 1 Month) No 09/19/2024 3:17 PM EDT Nadia Wolfe RN 6. Suicidal Behavior (Lifetime) No 5 3:17 PM EDT Nadia Wolfe RN documented as of this encounter Progress Notes * Yossi Marina MD - 01/02/2024 11:00 AM EDT HPI: Paula Simmons is a 43 y.o. year old female referred to our center by Nori Posey MD for evaluation and management of White matter lesion of the brain in the setting of multiple neurological symptoms Interval history Patient is here for follow up ,accompanied by her partner. No new neurological symptom concerning for demyelination since last visit Since last visit she is still having seizures since discharged from hospital , she was on couch andwas having tremors , ? Stop breathing and got stiff she has been having difficulty with her bowel movement , she seeing gastroenterology next She is following with urology started on medication unsure about the name on the medication list there is Flomax that is causing her to have more urinary retention she is scheduling her bathroom times She had Home health PT visit yesterday and working on strength and moving around house She is scheduled to get her EMG nerve conduction next couple of weeks Reviewed and discussed MRI done in the hospital reviewed and discussed EEG results Last visit history Patient returns for urgent follow up visit and is accompanied by her partner. Small sz have been occurring when she is falling asleep feels like electricity on L side of body and head. Thurs am body shaking like an earthquake. She could not see out of L eye. Tremors were still going and per patient pupils not responging, gave diazepam. Went to ER and CT and MRI neg. Told her she had 3 sz overnight and was moved into a new room for monitoring. Then told her lesions were the sameand seizures were fake . Added trazodone. D/c home since Sunday. Still has a black [place] tribe in visual field of L eye. Still getting episodes at night. ??HPI 42 yo female with medical history of genital herpes , intestinal cystitis , PTSD , depression , anxiety , body dysmorphia , suicidal ideation , suicidal intent , suicidal trials last 2 years ago , Chronic muscular and joint pain, neuropathy, MDD, PTSD-on Ambien 10 mg at bedtime, while once 40 mg inthe morning, clonazepam 1 mg 3 times a day, lamotrigine 200 mg in the morning and 50 mg at night- fby psych Dr. Muller ,Patient has time when she stopped seeing physician after 2014 and her hysterectomy she stopped seeing doctors , she was following only for [facility] health [facility] , Last September she She had problem eating and vomiting , she was diagnosed with panic attack /anxiety attack , her symptoms where getting worse and was not addressed approprietly , she was sent home , hadlow pressure , and was resuscitated with fluids to hospital and was diagnosed with gall bladder , she had surgery and removal of her gall bladder ? 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 Off note She went to [place] last December 2022 and had balance problem fell and had 2 concussions She was requested to see neurology she was evaluated had MRI brain done and showed non specific white matter lesions She went to [facility] to be evaluated and was diagnosed as neuropathic pain Reviewing other neurological symptoms she also experienced numbness hands in her feet and hand , onand off each for 2-3 days she does not recall exactly the timing of the episode She denies any episodic blurry vision , double vision She experience chest tightness last was last week for 24 hr , not associated with shortness of breath She had workup done including a brain MRI which showed nonspecific T2 changes Mri cervical spine /thoracic spine showing no T2 changes She had a spinal tap done results not avaliable will obtain , She follow up with [facility] after LP she had symptoms with brain loose She has trouble with her memory mainly short-term memory ?? Active Symptoms: Bowel/bladder: she was diagnosed with Intersitial cystitis March 2023 on ketamine and tramadol given by urologist Dr. Calvin She has problem with emptying bladder and holding urine Depression/anxiety: she has a very complex mental health problems follows up with a specialist ? 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 Neurologic Exam: BP 119/83 (BP Location: Left arm, Patient Position: Sitting, Cuff Size: Adult Large) Pulse 98 Temp 96.9 ??F (36.1 ??C) (Temporal) MS: AOx3 CN: perrla,, V1-3 intact to LT, Lf face numbness , face symmetric, bilateral SCM/trapezius 5/5, tongue/uvula/palate midline Motor: 4/5 in all extremities Sensation: Intact to light touch, temperature, and vibration in all extremities Reflexes: 2+ in bilateral biceps and patellae, toes downgoing bilaterally Cerebellar: FNF intact bilaterally, FFM intact bilaterally, CARMELA intact bilaterally Short steps 25 foot walk not done Labs: STONE negative Liver function elevated Rheumatoid factor negative Lyme IgM negative IgG positive HIV negative MOG antibody negative CSF white blood cells 1 red blood cells 1 protein 24.5 normal IgG index negative oligoclonal bands Reviewed avaliable labs Imaging: images were reviewed by me. MRI brain 11/2023 stable nonspecific T2 changes MRI orbit 11/2023 no concerning changes normal MRI brain 04/2023 subcortical nonspecific T2 changes no callosal lesions no infratentorial lesions MRI cervical/thoracic spine 06/2023 no cord lesion A/P: Paula Simmons is a 43 y.o. year old female was referred for evaluation of management ofwhite matter lesions in the setting of multiple neurological symptoms including tingling and numbness in her arms or legs also dizziness episode difficulty with her ambulation. Patient had workup done with MRI brain that did not show nonspecific T2 changes MRI cervical and thoracic spine with no cord lesions spinal tap that was completely noninflammatory with negative oligoclonal bands normal IgGindex, discussed with the patient and the family with the current giving patient does not meet criteria or fit into the diagnosis of multiple sclerosis mostly after reviewing the MRI with lesions that are not concerning for inflammation , discussed with the patient and partner that we will obtain another MRI brain 6/9 months that is MS protocol within our quadrants for better from well evaluationin the meantime we will obtain EMG nerve conduction study to exclude any peripheral cause for her weakness Discussed with the patient and partner. EMG nerve conduction did not show any abnormality will refer to a second opinion for general neurology at [facility] for a second opinion Today we placed a referral to neurology for a second opinion possible referral to functional neurology in [facility] White matter lesion: Will repeat MRI brain with MS protocol in a year MRI orbits with no changes MRI cervical/thoracic spine with no changes Inflammatory immune markers negative CSF negative for oligoclonal bands -Follow-up with ophthalmology Seizure-like episode: Obtain 72 hour EEG to try to capture any of her episodes Bilateral lower extremity weakness: EMG/nerve conduction scheduled for the next couple of weeks -Continue home health PT, OT, ANY COMMODITY SALES DELIVERER -Continue with psychiatry for care of behavioral health component Symptomatic management Urinary symptoms: Continue follow-up with a urologist GI symptoms: Seeing gastroenterology next week Follow-up as scheduled or sooner as needed with any concerns The patient and I discussed the clinical picture during today's appointment. Additional time was spent prior to the actual appointment reviewing records, lab values and imaging results and preparing documentation for today's visit. There was also time spent following the in person visit documenting, arranging for further diagnostic testing and follow-up appointments. The entire time spent in thisprocess was greater than 40 minutes. The majority of the actual [id number] visit was spent counseling the patient with respect to the current neurological picture. Yossi Marina MD documented in this encounter Plan of Treatment Upcoming Encounters Date Type Department Care Team (Late st Contact Info) Description 03/24/2025 11:30 AM EST Office [address] [facility] [address] [place] [phone] Janet Harding MD [address] [place] [address] 03/31/2025 11:00 AM EST Office Visit [facility] [address] [facility] [address] [place] [address] Rocío Watkins, MARYELLEN [address] [place] [phone] documented as of this encounter Visit Diagnoses Not on filedocumented in this encounter Care Teams Rebar Bender Relationship Specialty Start Date End Date Nori Posey MD PCP - General 01/30/23 04/22/24 documented as of this encounter
--- NOTE | 2025-03-11 15:21 | MHC.OFFVIS ---
Vital Signs 03/11/25 15:27 Height 5 ft 3 in Weight 212 lb BMI 37.6 BP 136/82 Blood Pressure Location Rt brachial Position Sitting Pulse 106 H Pulse Source Pulse Oximeter Pulse Oximetry (%) 96 Oxygen Delivery Method Room Air Intake Visit Reasons: 3mth Intake Note: ESTABLISHED PATIENT for mgmt of GERD, Gastroparesis, abd pain. Chief Complaint; C/O chronic sx persistence despite current therapies. Pt states that she has good days and bad days. She did experience an episode of severe reflux, nausea and vomiting yesterday. However, today she reports that she is doing ok. 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 In the meantime patient will take Reglan as needed. May use Compazine suppository if needed. Take Motegrity daily. Discussed with patient avoiding dietary triggers and late night snacking. Staying upright for minimum 3 hours after meals discussed with patient. Patient was encouraged to eat smaller meals and more often. Gastroparesis diet discussed. Patient will follow-up in 2 months. She will call us if she will have any GI concerning symptoms. Increase sucralfate to 3 times a day and space out in between meds to make sure that there is no reaction. Patient is agreeable to current plan of care and verbalizes understanding of instructions. She was given the opportunity to ask questions and all questions answered. ? Thank you for allowing me to participate in her care ? Records from [facility] reviewed as well as records from visits to ED Changed Changed From sucralfate 1 g PO BID 60 tabs 3RF K52.9 Changed To sucralfate 1 g PO TID 90 tabs 3RF K52.9 TODAY'S VISIT Patient is here today for follow-up. Patient had a visit at [facility] with GI team and motility team and received positive information and was happy of what she her. However she is a little disappointed that she has to repeat GES and MRI of head and brain. Hoping that she will get some answers and they will be able to see how she is doing. Patient will have GES on the of this month and MRI on the . Currently patient is feeling fairly well, few episodes of severe epigastric pain and vomiting. Couple nights ago patient had severe epigastric pain and vomiting. Patient reports that she is trying to eat smaller meals. Takes Motegrity every day and for the most part her bowel him so are moving well. Patient is taking Reglan as needed only. Not taking Compazine as she did not like the feeling. RN from general surgery stop by to check patient's colostomy bag. Patient has brown stool without blood in it. Stoma protruding a little. Patient reports that she is not straining or pushing. Patient is taking low-dose Creon and states that she is tolerating it well. Patient's take it 3 times a day with meals. [facility] Medical History (Updated 03/11/25 @ 19:57 by Ximena Valdes [facility]) Gastroparesis History of lumbar puncture (06/13/23) Seizures Postprocedural seroma of skin and subcutaneous tissue following other procedure Colostomy in place Hx of flexible sigmoidoscopy (07/26/24) Proctosigmoiditis Stricture of sigmoid colon Colon wall thickening Obesity, Class II, BMI 35-39.9 IBS (irritable bowel syndrome) History of colitis Gastric ulcer Interstitial cystitis Occipital neuralgia of right side History of suicidal ideation Anxiety Agoraphobia MDD (major depressive disorder) PTSD (post-traumatic stress disorder) Surgical History Hx of History of colon surgery (08/12/24) History of tonsillectomy and adenoidectomy Hx of appendectomy H/O endoscopy (12/09/24) Hx of colonoscopy Hx of section H/O: hysterectomy Hx of cholecystectomy (~12/2022) Family History Father Prostate cancer Maternal Uncle Colon cancer Maternal Grandmother Breast cancer Social History Household Members: Spouse Housing: House Do you presently have visiting nurse or other home services: No Alcohol intake: never 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 Patient Tobacco Use Status: Former Tobacco user e-Cigarette/Vaping Use: Never Used Second Hand Smoke Exposure: No Substance Use Type: Marijuana Advance Directives Date on File: 01/25/25 service: No Physical Exam Vital Signs: Last Vital Signs Pulse 106 H 03/11/25 15:27 BP 136/82 03/11/25 15:27 Pulse Ox 96 03/11/25 15:27 Oxygen Delivery Method Room Air 03/11/25 15:27 BMI result Body Mass Index 37.6 Assessment & Plan Assessment & Plan (1) Gastroparesis: Code(s): K31.84 - Gastroparesis Category: Medical (2) Intractable vomiting: Code(s): R11.10 - Vomiting, unspecified Category: Medical (3) Gastroenteritis: Code(s): K52.9 - Noninfective gastroenteritis and colitis, unspecified Category: Medical (4) S/P colostomy: Code(s): Z93.3 - Colostomy status Category: Medical (5) History of colitis: Code(s): Z87.19 - Personal history of other diseases of the digestive system Category: Medical (6) Postprandial epigastric pain: Code(s): R10.13 - Epigastric pain Plan Patient will continue current treatment with Motegrity. Only use Reglan as needed. Patient was also encouraged to use Zofran 1st. Patient can increase sucralfate to 3 times a day as needed. Continue avoiding dietary triggers in late night snacking. Will increase Creon to help with bloating. Exam is normal today patient had no abdominal pain or discomfort. No bloating. Patient was encouraged to keep her appointments in [place] for both gastric emptying study and MRI. Follow-up in 3 months, sooner on as needed basis. She is agreeable to this plan and verbalizes understanding of instructions. She was given the opportunity to ask questions and all questions answered. Thank you for allowing me to participate in her care Coding Level of Care Code Est Pt Level 4 (73528) Add On Problem Visit Only Diagnoses Gastroparesis K31.84 Intractable vomiting R11.10 Gastroenteritis K52.9 S/P colostomy Z93.3 History of colitis Z87.19 Postprandial epigastric pain R10.13 Time Spent (min) 40 Comment 25 minutes spent with patient and additional 15 minutes spent reviewing her records
[2025-03-11 15:27] VITALS: BP 136/82; PULSE 106; O2SAT 96; BMI 37.6
--- OUTSIDE RECORDS SUMMARY | 2025-03-11 23:02 | XMS_ITS | Clinical Summary ---
Author Organization 175 [facility] Address [address] [place] [address] Phone Care Team Providers Care Chronometer Tester Name Role Phone Janet Harding MD Primary Care Provider [phone] Allergies Active Allergy Reactions Criticality Noted Date [...] BY MOUTH TWICE A DAY 180 tablet 1 02/25/20 25 Active famotidine (PEPCID) 20 mg tabletIndications: Slow transit constipation,Gastr oparesis TAKE 1 TABLET BY MOUTH TWICE A DAY 180 tablet 12/03/19 25 025 Discontin ued(Reord er) Active Problems Problem Noted Date Diagnosed Date Colostomy in place 11/25/2024 Class 1 obesity 11/24/2024 Internal hemorrhoid [...] AM EDT Office Visit Internal Medicine - [address] [phone] Duy Lund NP Hospital discharge follow-up (Primary Dx) 01/12/2025 Telephone Internal Medicine - [address] [phone] Janet Harding MD 01/05/2025 Telephone Internal Medicine - [address] [phone] Janet Harding MD from Last 3 Months Immunizations Immunization Administration Dates Next Due Tdap Tetanus diptheria acell ular pertussis (Boostrix; Adacel) 7yo and older 05/04/2023 Surgical History Surgery Date Site/Laterality Comments CHOLECYSTECTOMY PROCEDURE: [place] LAPAROSCOPY SURG CHOLECYSTECTOMY HYSTERECTOMY 2015 PROCEDURE: HISTORICAL [...] stress disorder) Suicide and self-inflicted i njury ([facility] [place] [facility] [place] DX:Suicide and self-inflict ed injury (HCC) [...] DX:Guaiac positive stools Hematuria DX:Hematuria Uterine cancer ([facility] [place] [facility]) 2014 DX:[facility]terine cancer ([facility]) Interstitial cystitis DX:Interst itial cystitis Herpes [...] on file Sexual Orientation Not on file Last Filed Vital Signs [...] AM EST Office Visit Internal Medicine - [facility] [address] [place], [place] [phone] Janet Harding MD [address] [place], [place] 03/31/2025 11:00 AM EST Office Visit [facility] [address] [place] [address] Rocío Watkins PA [address] [place] [phone] Health Maintenance Due Date Last Done [...] ULTRASOUND REPORT 12/31/2024 EXTERNAL XRAY REPORT 12/29/2024 DEPRESSION SCREENING Routine 05/04/2023 [facility] SCREENING DIGITAL Routine 06/05/2022 11:27 [...] Onbase IMG XR PROCEDURES Final Result * Depression Screening (05/04/2023) Depression Screening Abstracted Historical Provider HEALTH MAINTENANCE Final Result * JOE SCREENING DIGITAL (06/05/2022 11:27 AM EST) Anatomical Region Laterality Modality Mammography 06/05/2022 8:32 AM EST Narrative 06/05/2022 11:27 AM EST [facility] Diagnostic Imaging Department [address] [place] [address] Patient: LUIS REDDPAULA /Age/Sex: 1980 - 41 - F Unit#: [id number] Location/Status: SPDIMAM/REG CLI Mnemonic/Ordering Site: DIGVT/[facility] Ordering Physician: VIDAL GARY DO [facility] Screening Digital - 06/05/22854 EXAM: [facility] Screening Digital EXAM DATE AND TIME: 06/05/2022 8:56 AM HISTORY: Screening. Baseline exam. Maternal grandmother had breast carcinoma. COMPARISON: No comparison imaging. TECHNIQUE: CC and MLO views of both breasts were obtained using full field digital mammography. Bilateral digital breast tomosynthesis was performed in the MLO projection. Computer aided detection with Celsion 7.2-H and WittyParrot 3D 3.1 was employed. TISSUE DENSITY: b. [...] Routine screening mammogram BILATERAL in 1 year. 12108, 03710 4531F, 7090F Dictating Physician: KIYA MYLES MD Electronically Signed by: KIYA MYLES MD Dic Date/Time: 06/05/22 1126 Sign date/Time: 06/05/22 1127 Procedure Note Kiya Myles MD - 05/04/2023 [facility] Diagnostic Imaging Department [address] [place] [address] Patient: PAULA JULES /Age/Sex: 1980 - 41 - F Unit#: [id number] Location/Status: [facility]/REG CLI Mnemonic/Ordering Site: [facility] Ordering Physician: VIDAL GARY DO [facility] Screening Digital - 06/05/22 - 55 EXAM: [facility] Screening Digital EXAM DATE AND TIME: 06/05/2022 8:56 AM HISTORY: Screening. Baseline exam. Maternal grandmother had breastcarcinoma. COMPARISON: No comparison imaging. TECHNIQUE: CC and MLO views of both breasts were obtained using fullfield digital mammography. Bilateral digital breast tomosynthesis was performedin the MLO projection. Computer aided detection with Celsion 7.2-H andWittyParrot 3D 3.1 was employed. TISSUE DENSITY: b. [...] Routine screening mammogram BILATERAL in 1 year. 28129, 86062 3341F, 7025F Dictating Physician: KIYA MYLES MD [...] Most Recently Relevant to Health Maintenance Insurance [facility] [employer] Care Teams Chronometer Tester Relationship Specialty Start Date End Date Janet Harding MD [address] [facility] [place] [address] PCP - General Internal Medicine 08/04/24
--- OUTSIDE RECORDS SUMMARY | 2025-03-11 23:02 | XMS_ITS | Clinical Summary ---
Author Organization [employer] [facility] Prior to 08/30/24 Address [address] [place] [address] Care Team Providers Care Industrial Sales Engineer Name Role Phone Nori Posey MD Primary Care Provider [phone] Allergies Active Allergy Reactions Criticality Noted Date Comments [place] 08/30/2023 Medications Medication Sig Dispensed Refills Start [...] age to complete this topic Care Teams Industrial Sales Engineer Relationship Specialty Start Date End Date Nori Posey MD [address] [place] [address] PCP - General Internal Medicine 08/01/23
== END 2025-03-11 15:59 | disposition home or self-care (01) ==
LOC: HO.HGI 14:41
PROVIDERS: Visit Provider Nurse Practitioner Family
DX: K31.84 Gastroparesis (principal); R11.10 Vomiting, unspecified; K52.9 Noninfective gastroenteritis and colitis, unspecified; Z93.3 Colostomy status; Z87.19 Personal history of other diseases of the digestive system; R10.13 Epigastric pain
CPT/HCPCS: 99214

== ENCOUNTER → 2025-03-11 14:40 | Outpatient (BNVA) | payer OTHER, SELFPAY | PROVIDERS: Visit Provider Nurse Practitioner Family | DX: K31.84 Gastroparesis (principal); R11.2 Nausea with vomiting, unspecified; R10.13 Epigastric pain; K52.9 Noninfective gastroenteritis and colitis, unspecified; Z93.3 Colostomy status; Z87.19 Personal history of other diseases of the digestive system | CPT/HCPCS: 99212 ==

== ENCOUNTER 2025-03-19 19:13 | Emergency (ER) | payer OTHER, SELFPAY ==
--- OUTSIDE RECORDS SUMMARY | 2024-01-02 09:45 | XMS_ITS | Encounter Summary ---
Author Organization [employer] Address [address] [place] [address] Care Team Providers Care Job Developer Name Role Phone Nori Posey MD Primary Care Provider +1 [phone] Encounter Details Date Type Department Care Team (Late st Contact Info) Description 01/02/2024 10:45 AM EDT Hospital Encounter TH HISTORIC ENCOUNTERS EASTERN CONVERSION ONLY Yossi Marina MD 175 [place] [address] Social History Tobacco Use Types Packs/Day Years [...] 3:17 PM EDT Nadia Wolfe RN * [place] Suicide Severity Rating Scale (Screener/Recent Self-Report) Question [...] home since Sunday. Still has a black [place] in visual field of L eye. Still [...] ambulation ?? 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 The majority of the actual kxgt-oi-prpz visit was spent counseling the patient with respect to the current neurological picture. Yossi Marina MD documented in this encounter Plan of Treatment Upcoming Encounters Date Type Department Care Team (Late st Contact Info) Description 03/24/2025 11:30 AM EST Office Visit Internal Medicine - [address] [place] [phone] Janet Harding MD [address] [place] [address] 03/31/2025 11:00 AM EST Office Visit [facility] 175 [facility] [address] [place] [address] Roíco Watkins, MARYELLEN [address] [place] [phone] documented as of this encounter Visit Diagnoses Not on filedocumented in this encounter Care Teams Job Developer Relationship Specialty Start Date End Date Nori Posey MD PCP - General 01/30/23 04/22/24 documented as of this encounter
--- NOTE | ~2025-03-19 | CT_ITS ---
CLINICAL HISTORY: no bm CT abdomen and pelvis with contrast Comparison: CT/REG/SR - CT ABDOMEN PELVIS W IV CON - 12/21/24 02:25 EDT Findings: The lung bases are clear. The liver and spleen, left and right kidney, adrenals and pancreas are within normal limits Prior cholecystectomy. Left lower quadrant colostomy. There is diffuse fecal material seen throughout the colon. The appendix not grossly identified. Prior hysterectomy. No acute fracture. IMPRESSION: 1. Left lower quadrant colostomy. 2. Constipation. 3. Prior cholecystectomy and hysterectomy. This document has been electronically signed by: Gordo Jones MD on 03/19/2025 23:55:59
--- NOTE | ~2025-03-19 | XR_ITS ---
CLINICAL HISTORY: no out put in colostomy 1 view abdomen Comparison: None Findings: Normal bowel gas pattern. Normal stool quantity. No abnormal calcifications. No pneumoperitoneum or pneumatosis. Bones unremarkable Impression: 1. Normal bowel gas pattern This document has been electronically signed by: Isra Mitchell MD on 03/19/2025 20:54:37
--- NOTE | 2025-03-19 19:15 | ECG_ITS ---
Test Reason : CHEST PAIN Blood Pressure : */* mmHG Vent. Rate : 106 BPM Atrial Rate : 106 BPM P-R Int : 116 ms QRS Dur : 84 ms QT Int : 330 ms P-R-T Axes : 39 49 22 degrees QTcB Int : 438 ms Sinus tachycardia Otherwise normal ECG When compared with ECG of 21-Dec-2024 00:53, No significant change was found Referred By: Arlen Beebe Electronically Signed By: Delmer Randolph
[2025-03-19 20:06] VITALS: BP 130/61; PULSE 101; RESP 20; TEMP 36.8; O2SAT 97; BMI 45.3
[2025-03-19 20:57] VITALS: BP 178/85; PULSE 87; RESP 16; TEMP 36.7; O2SAT 99
--- OUTSIDE RECORDS SUMMARY | 2025-03-19 21:05 | XMS_ITS | Clinical Summary ---
Author Organization [facility] Prior to 08/30/24 Address [address] [place] [address] Care Team Providers Care Lobster Fisherman Name Role Phone Nori Posey MD Primary Care Provider [phone] Allergies Active Allergy Reactions Criticality Noted Date Comments [place] 08/30/2023 Medications Medication Sig Dispensed Refills Start [...] age to complete this topic Care Teams Lobster Fisherman Relationship Specialty Start Date End Date Nori Posey MD [address] [place] [id number] PCP - General Internal Medicine 08/01/23
--- OUTSIDE RECORDS SUMMARY | 2025-03-19 21:05 | XMS_ITS | Clinical Summary ---
Author Organization 175 [facility] Address [address] [place] [address] Phone Care Team Providers Care Medical Data Analyst Name Role Phone Janet Harding MD Primary Care Provider [phone] Allergies Active Allergy Reactions Criticality Noted Date [...] AM EDT Office Visit Internal Medicine - [address] [phone] Duy Lund NP Hospital discharge follow-up (Primary Dx) 01/12/2025 Telephone Internal Medicine - [address] [phone] Janet Harding MD 01/05/2025 Telephone Internal Medicine - [address] [phone] Janet Harding MD from Last 3 Months Immunizations Immunization Administration Dates Next Due Tdap Tetanus diptheria acell ular pertussis (Boostrix; Adacel) 7yo and older 05/04/2023 Surgical History Surgery Date Site/Laterality Comments CHOLECYSTECTOMY PROCEDURE: [place] LAPAROSCOPY SURG CHOLECYSTECTOMY HYSTERECTOMY 2015 PROCEDURE: HISTORICAL [...] stress disorder) Suicide and self-inflicted i njury ([facility] [place], [facility]28) DX:Suicide and self-inflict ed injury (HCC) [...] [facility] [place] [facility] 2014 DX:Uterine cancer ([facility]) Interstitial cystitis DX:Interst itial cystitis Herpes [...] AM EST Office Visit Internal Medicine - [facility] [address] [place], [place] [phone] Janet Harding MD [address] [place], [place] 03/31/2025 11:00 AM EST Office Visit [facility] [address] [place] [address] Rocío Watkins PA [address] [place] [phone] Health Maintenance Due Date Last Done Comments Drug Screen 1980 Non-Opioid Controlled Substance Agreement 1980 Hepatitis B Vaccines (1 of 3 - [...] XRAY REPORT 12/29/2024 DEPRESSION SCREENING Routine 05/04/2023 [facility] SCREENING DIGITAL Routine 06/05/2022 11:27 AM [...] Historical Provider HEALTH MAINTENANCE Final Result * [facility] SCREENING DIGITAL (06/05/2022 11:27 AM EST) Anatomical Region Laterality Modality Mammography 06/05/2022 8:32 AM EST Narrative 06/05/2022 11:27 AM EST [facility] Diagnostic Imaging Department [address] [place] [address] Patient: PAULA JULES./Age/Sex: 1980 - 41 - F Unit#: [id number] [facility]Ordering Site: [facility] Ordering Physician: VIDAL GARY DO [facility] Screening Digital - 06/05/22 - 55 EXAM: [facility] Screening Digital EXAM DATE AND TIME: 06/05/2022 8:56 AM HISTORY: Screening. Baseline exam. Maternal grandmother had breast carcinoma. COMPARISON: No comparison imaging. TECHNIQUE: CC and MLO views of both breasts were obtained using full field digital mammography. Bilateral digital breast tomosynthesis was performed in the MLO projection. Computer aided detection with LuckyCal 7.2-H and [employer] 3D 3.1 was employed. TISSUE DENSITY: b. [...] Routine screening mammogram BILATERAL in 1 year. 724[address], 79994 3341F, 7025F Dictating Physician: KIYA MYLES MD Electronically Signed by: KIYA MYLES MD Dic Date/Time: 06/05/22 112 Sign date/Time: 06/05/22 112 Procedure Note Kiya Myles MD - 05/04/2023 [facility] Diagnostic Imaging Department [address] [place] [address] Patient: PAULA JULES /Age/Sex: 1980 - 41 - F Unit#: [id number] Location/Status: [facility]IMA/REG CLI Mnemonic/Ordering Site: [facility] Ordering Physician: VIDAL GARY DO [facility] Screening Digital - 06/05/22 - 55 EXAM: [facility] Screening Digital EXAM DATE AND TIME: 06/05/2022 8:56 AM HISTORY: Screening. Baseline exam. Maternal grandmother had breastcarcinoma. COMPARISON: No comparison imaging. TECHNIQUE: CC and MLO views of both breasts were obtained using fullfield digital mammography. Bilateral digital breast tomosynthesis was performedin the MLO projection. Computer aided detection with LuckyCal 7.2-H andFarmaciaClub 3D 3.1 was employed. TISSUE DENSITY: b. [...] Routine screening mammogram BILATERAL in 1 year. 16[address], 25334 3341F, 7025F Dictating Physician: KIYA MYLES MD [...] Maintenance Insurance [facility] [employer] Care Teams Medical Data Analyst Relationship Specialty Start Date End Date Janet Harding MD [address] [facility] [place] [phone] PCP - General Internal Medicine 08/04/24
--- NOTE | 2025-03-19 21:14 | PC.NURSE ---
spoke with PA about placing IV using US - pt is very difficult to get IV in
[2025-03-19 21:57] VITALS: BP 113/68; PULSE 88; RESP 11; TEMP 36.8; O2SAT 98
[2025-03-19 22:05] LABS: MANUAL DIFF FLAG NO
[2025-03-19 22:23] LABS: Alanine Aminotransferase 19 U/L (0-31); Albumin Level 4.5 g/dL (3.5-5.0); Alkaline Phosphatase 120 U/L (39-117); Anion Gap 13 (12-20); Aspartate Amino Transferase 38 U/L (5-31); Blood Urea Nitrogen 11 mg/dL (9-16); Calcium 9.2 mg/dL (8.4-10.2); Carbon Dioxide 24 mmol/L (22-29); Chloride 102 mmol/L (96-108); Creatinine Clr Calc Pharmacy 118.9; Estimated Glomerular Filt Rate > 60; Potassium 4.1 mmol/L (3.3-5.1); Sodium 135 mmol/L (135-145); Total Protein 8.6 g/dL (6.5-8.0)
[2025-03-19 22:25] LABS: Hematocrit 40.3 % (37.0-47.0); Hemoglobin 13.4 g/dl (12.0-16.0); Imm Gran Abs Auto 0.03 X10*3/uL (0.00-0.03); Imm Gran Pct Auto 0.3 % (0.0-0.4); Lymphocytes Absolute Auto 2.8 X10*3/uL (1.2-4.9); Mean Corpuscular HGB Conc 33.3 g/dl (31.0-35.0); Mean Corpuscular Hemoglobin 27.3 pg (27.0-33.0); Mean Corpuscular Volume 82.1 fL (80.0-98.0); NRBC Abs Auto 0.000 X10*3/uL (0.0-0.012); NRBC Pct Auto 0.0 /100WBC (0.0-0.2); Platelet Count 484 X10*3/uL (160-400); Red Blood Count 4.91 X10*6/uL (4.20-5.50); White Blood Count 9.3 X10*3/uL (4.8-10.8)
[2025-03-19 22:30] LABS: Troponin-I High Sensitivity < 2.7 ng/L (<3.5-17.0)
--- NOTE | 2025-03-19 22:44 | ED.ABDPAIN ---
HPI - Abdominal Pain General Chief Complaint: Abdominal Pain Stated Complaint: cp, numbness of limb Time Seen by Provider: 03/19/25 22:04 History of Present Illness HPI narrative: patient is a 44-year-old female with a history of motility issues. Had an ostomy done in July. Presented today with having no bowel movement for the last 5 days. No fever no chills. Diffuse abdominal pain worse over the epigastric area very similar to previous episodes. Patient from home. Does not think she is . No fever no chills no pain on urination. No chest pain or diaphoresis. No coughing or congestion. Related Data Home Medications ?Medication ?Instructions ?Recorded ?Confirmed lamotrigine 200 mg tablet 200 mg PO DAILY 01/02/23 12/29/24 valacyclovir 500 mg tablet 500 mg PO DAILY 01/02/23 12/29/24 vortioxetine 20 mg tablet 20 mg PO DAILY 01/02/23 12/29/24 (Trintellix) hydroxyzine HCl 25 mg tablet 25 mg PO BEDTIME 01/08/24 12/29/24 lamotrigine 25 mg tablet 50 mg PO BEDTIME 01/08/24 12/29/24 bisacodyl 5 mg tablet,delayed 10 mg PO BEDTIME 07/25/24 12/29/24 release mirabegron 50 mg tablet,extended 50 mg PO DAILY 07/25/24 12/29/24 release 24 hr (Myrbetriq) eszopiclone 3 mg tablet (Lunesta) 3 mg PO BEDTIME 08/06/24 12/29/24 clonazepam 1 mg disintegrating 1 mg PO TID 12/08/24 12/29/24 tablet pantoprazole 40 mg tablet,delayed 40 mg PO DAILY@0630 12/08/24 12/29/24 release magnesium oxide 400 mg PO DAILY 12/21/24 12/29/24 famotidine 20 mg tablet 20 mg PO BID 01/28/25 Previous Rx's ?Medication ?Instructions ?Recorded cholecalciferol (vitamin D3) 125 125 mcg PO DAILY #90 caps 05/30/24 mcg (5,000 unit) capsule docusate sodium 100 mg capsule 100 mg PO BID #60 caps 08/20/24 (Colace) hydrocortisone 2.5 % topical cream 1 appl topical BID PRN pain #28 01/02/25 grams oxycodone 10 mg tablet 10 mg PO Q8H PRN severe pain 01/27/25 (scale score 7-10) #12 tabs sucralfate 1 gram tablet 1 g PO TID #90 tabs 01/28/25 ondansetron 4 mg disintegrating 4 mg PO Q8H PRN nausea and 03/03/25 tablet vomiting #30 tabs [id number]-rysbmths-mccyrwm 1 cap PO QID #120 caps 03/11/25 (pork)36,000-114,000-180k unit capsule,del rel (Creon) prucalopride 2 mg tablet 2 mg PO DAILY #90 tabs 03/11/25 (Motegrity) metoclopramide HCl 5 mg tablet 5 mg PO Q8H PRN for 03/18/25 nausea/vomiting #20 tabs polyethylene glycol 3350 17 17 g PO DAILY 1 week #119 grams 03/20/25 gram/dose oral powder (Miralax) Allergies Allergy/AdvReac Type Severity Reaction Status Date / Time propofol Allergy Intermediate Itching Verified 03/19/25 20:08 morphine Allergy Mild Itching Verified 03/19/25 20:08 Review of Systems Review of Systems Positive motility issues Yes all other systems are reviewed and are negative PMFSH Past Medical History Attestation statement: The following information was validated with the patient. Medical History Gastroparesis History of lumbar puncture (06/13/23) Seizures Postprocedural seroma of skin and subcutaneous tissue following other procedure Colostomy in place Hx of flexible sigmoidoscopy (07/26/24) Proctosigmoiditis Stricture of sigmoid colon Colon wall thickening Obesity, Class II, BMI 35-39.9 IBS (irritable bowel syndrome) History of colitis Gastric ulcer Interstitial cystitis Occipital neuralgia of right side History of suicidal ideation Anxiety Agoraphobia MDD (major depressive disorder) PTSD (post-traumatic stress disorder) Surgical History Hx of History of colon surgery (08/12/24) History of tonsillectomy and adenoidectomy Hx of appendectomy H/O endoscopy (12/09/24) Hx of colonoscopy Hx of section H/O: hysterectomy Hx of cholecystectomy (~12/2022) Family History Family History Father Prostate cancer Maternal Uncle Colon cancer Maternal Grandmother Breast cancer Social History Social History Household Members: Spouse Housing: House Do you presently have visiting nurse or other home services: No Alcohol intake: never 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 Patient Tobacco Use Status: Former Tobacco user Smoked in Last 30 Days: No e-Cigarette/Vaping Use: Never Used Second Hand Smoke Exposure: No Use of substances other than those prescribed or required for medical reasons: No Substance Use Type: Marijuana Any prior treatment program specific to substance use: No Advance Directives: Yes Advance Directives on File: Yes Advance Directives Date on File: 01/25/25 Patient : No service: No Physical Exam ED Exam Exam: Appearance: Alert. Oriented X3. No acute distress. Eyes: Pupils equal, round and reactive to light. ENT: Pharynx normal. Neck: Normal inspection. Neck supple. No lymph nodes noted. No crepitus CVS: Normal heart rate and rhythm. Pulses normal. Normal S1 and S2 Respiratory: No respiratory distress. Breath sounds normal. No Wheezing. No rales Abdomen: Soft and nontender. No rigidity. No distention. good BS x4 Skin: Skin warm and dry. Normal skin color. Normal skin turgor. Extremities: No lower extremity edema. Neurovascular intact to all extremities. No Lacerations. No Rash Neuro: Oriented X 3. No motor deficit. No sensory deficit. Moving all extermities. No slurred speech Vital Signs: Vital Signs - 24 hr 03/19/25 20:06 03/19/25 20:57 03/19/25 21:57 Temperature 98.3 F 98.1 F 98.2 F Pulse Rate 101 H 87 88 Respiratory Rate 20 16 11 L Blood Pressure 130/61 178/85 H 113/68 Pulse Oximetry 97 99 98 Oxygen Delivery Method Room Air Room Air Room Air 03/20/25 00:04 Temperature 98.2 F Pulse Rate 75 Respiratory Rate 10 L Blood Pressure 118/59 L Pulse Oximetry 98 Oxygen Delivery Method Room Air BMI result Body Mass Index 45.3 Medical Decision Making Medical Decision Making MDM Narrative: CT scan showed no obstruction. It shows fairly significant constipation. Patient has tried Mag citrate did not work. Will try to give patient a prescription for MiraLax. Close follow-up on an outpatient basis. Patient normally gets follow-up with Dr. [place] who referred patient back to the clinic. Currently in stable condition tolerating p.o.. We did labs on patient. Patient's white count is normal. Electrolytes are normal For her. Troponin is negative. test is negative. No related issues. Patient to be discharged home Differential Diagnosis Differential Diagnoses: The differential diagnosis associated with the presentation includes constipation Admission/Observation Consideration of admission/observation: Escalation of care including admission/observation considered Lab Data MDM Lab Attestation statement: I reviewed the patient's lab results. 03/19/25 22:01 03/19/25 22:01 Labs: Lab Results 03/19/25 Range/Units 22:01 WBC 9.3 (4.8-10.8) X10*3/uL RBC 4.91 (4.20-5.50) X10*6/uL Hgb 13.4 (12.0-16.0) g/dl Hct 40.3 (37.0-47.0) % MCV 82.1 (80.0-98.0) fL MCH 27.3 (27.0-33.0) pg MCHC 33.3 (31.0-35.0) g/dl RDW 13.7 (11.0-16.0) % Plt Count 484 H (160-400) X10*3/uL MPV 9.9 (9.4-12.3) fL Immature Gran % (Auto) 0.3 (0.0-0.4) % Neut % (Auto) 63.8 (45-73) % Lymph % (Auto) 30.0 (20-40) % Payne % (Auto) 5.0 (2-11) % Eos % (Auto) 0.6 (0-4) % Baso % (Auto) 0.3 (0-2) % Lymph # (Auto) 2.8 (1.2-4.9) X10*3/uL Payne # (Auto) 0.5 (0.1-1.2) X10*3/uL Eos # (Auto) 0.1 (0.0-0.4) X10*3/uL Baso # (Auto) 0.0 (0.0-0.2) X10*3/uL Abs Immat Gran (auto) 0.03 (0.00-0.03) X10*3/uL Absolute Neuts (auto) 5.9 (2.0-8.3) x10*3/uL Absolute Nucleated RBC 0.000 (0.0-0.012) X10*3/uL Nucleated RBC % (auto) 0.0 (0.0-0.2) /100WBC Sodium 135 (135-145) mmol/L Potassium 4.1 (3.3-5.1) mmol/L Chloride 102 (96-108) mmol/L Carbon Dioxide 24 (22-29) mmol/L Anion Gap 13 (12-20) BUN 11 (9-16) mg/dL Creatinine 0.75 (0.5-1.4) mg/dL Estim Creat Clear Calc 118.9 Estimated GFR > 60 Random Glucose 89 (60-115) mg/dL Calcium 9.2 (8.4-10.2) mg/dL Total Bilirubin 0.2 (0.0-1.0) mg/dL AST 38 H (5-31) U/L ALT 19 (0-31) U/L Alkaline Phosphatase 120 H (39-117) U/L Troponin I High Sens < 2.7 (<3.5-17.0) ng/L Total Protein 8.6 H (6.5-8.0) g/dL Albumin 4.5 (3.5-5.0) g/dL Beta HCG, Quant < 2 mIU/mL Independent Interpretation I performed an independent interpretation of an: CT Scan Radiology Impression Discussion of test interpretation with radiology: I have reviewed the radiologist's reading. External Record Review External record reviewed: Inpatient record and Office record Chronic Conditions constipation Social Determinants Patient?s care significantly limited by Social Determinants of Health including: Problems related to primary support group Medications Administered Discontinued Medications Generic Name Dose Route Start Last Admin Trade Name Freq PRN Reason Stop Dose Admin Iohexol 85 ml 03/19/25 23:13 03/19/25 23:14 Iohexol 350 Mg/Ml 100 Ml Infus..Btl IV 03/19/25 23:14 85 ml ONCE ONE Administration Ketorolac Tromethamine 15 mg 03/19/25 22:34 03/19/25 22:39 Ketorolac Tromethamine 15 Mg/Ml Vial IVPUSH 03/19/25 22:35 15 mg ONCE ONE Administration Ondansetron HCl 4 mg 03/19/25 22:34 03/19/25 22:39 Ondansetron Hcl 4 Mg/2 Ml Vial IVPUSH 03/19/25 22:35 4 mg ONCE ONE Administration Discharge Plan Discharge Clinical Impression: Constipation Patient Disposition: Home, Self-Care Instructions: Constipation (DC) Prescriptions: New polyethylene glycol 3350 [Miralax] 17 gram/dose powder 17 g PO DAILY 7 Days Qty: 119 0RF No Action ondansetron 4 mg tablet,disintegrating 4 mg PO Q8H PRN (Reason: nausea and vomiting) Qty: 30 1RF metoclopramide HCl 5 mg tablet 5 mg PO Q8H PRN (Reason: for nausea/vomiting) Qty: 20 0RF valacyclovir 500 mg tablet 500 mg PO DAILY Trintellix 20 mg tablet 20 mg PO DAILY lamotrigine 200 mg tablet 200 mg PO DAILY Rx Instructions: 200mg in morning, 25mg at night lamotrigine 25 mg tablet 50 mg PO BEDTIME Rx Instructions: 200mg in morning, 25mg at night docusate sodium [Colace] 100 mg capsule 100 mg PO BID Qty: 60 3RF clonazepam 1 mg tablet,disintegrating 1 mg PO TID pantoprazole 40 mg tablet,delayed release (DR/EC) 40 mg PO DAILY@0630 magnesium oxide 400 mg magnesium capsule 400 mg PO DAILY oxycodone 10 mg tablet 10 mg PO Q8H PRN (Reason: severe pain (scale score 7-10)) Qty: 12 0RF Rx Instructions: Partial Fill upon patient request. bisacodyl 5 mg tablet,delayed release (DR/EC) 10 mg PO BEDTIME mirabegron [Myrbetriq] 50 mg tablet extended release 24 hr 50 mg PO DAILY hydrocortisone 2.5 % cream 1 appl topical BID PRN (Reason: pain) Qty: 28 0RF hydroxyzine HCl 25 mg tablet 25 mg PO BEDTIME cholecalciferol (vitamin D3) 125 mcg (5,000 unit) capsule 125 mcg PO DAILY Qty: 90 3RF eszopiclone [Lunesta] 3 mg tablet 3 mg PO BEDTIME famotidine 20 mg tablet 20 mg PO BID sucralfate 1 gram tablet 1 g PO TID Qty: 90 3RF Patient Comments: pt takes with 8 ounces of water 1 hour before her other medications. prucalopride [Motegrity] 2 mg tablet 2 mg PO DAILY Qty: 90 2RF Creon 36,000-114,000- 180,000 unit capsule,delayed release(DR/EC) 1 cap PO QID Qty: 120 3RF Rx Instructions: administer with meals and/or snacks Print Language: Japanese
[2025-03-19] MEDS: iohexoL 350 MG/ML 100 ML INFUS..BTL 85 ML IV (23:14)
--- NOTE | 2025-03-19 23:34 | PC.NURSE ---
notified MD patient stated her pain is still 9/10 after the toradol.
[2025-03-20 00:04] VITALS: BP 118/59; PULSE 75; RESP 10; TEMP 36.8; O2SAT 98
[2025-03-20 00:26] VITALS: BP 118/59; PULSE 75; RESP 10; TEMP 36.8; O2SAT 98
== END 2025-03-20 00:33 | disposition home or self-care (01) ==
PROVIDERS: Emergency Provider Emergency Medicine Emergency Medical Services
DX: K59.00 Constipation, unspecified (principal); R10.13 Epigastric pain; Z79.899 Other long term (current) drug therapy
CPT/HCPCS: 36415; 74018; 74177; 80053; 84484; 84702; 85025; 93005; 96374; 96375; 99284; 99285; J1885; J2405; Q9967

== ENCOUNTER → 2025-03-19 19:15 | Outpatient (BNV) | payer OTHER, SELFPAY | PROVIDERS: Emergency Provider Emergency Medicine Emergency Medical Services; Visit Provider Internal Medicine Cardiovascular Disease | DX: R00.0 Tachycardia, unspecified (principal) | CPT/HCPCS: 93010 ==

== ENCOUNTER → 2025-03-19 20:21 | Outpatient (BNV) | payer OTHER, SELFPAY | PROVIDERS: Visit Provider Radiology Diagnostic Radiology | DX: Z03.89 Encounter for observation for other suspected diseases and conditions ruled out (principal) | CPT/HCPCS: 74018 ==